=== PATIENT | male | born 1935 | race Caucasian/White ===

== ENCOUNTER 2021-06-21 15:40 | Inpatient (IN) | payer MEDICARE, SELFPAY ==
--- NOTE | ~2021-06-21 | US_ITS ---
EXAMINATION: US VENOUS ULTRASOUND WITH DOPPLER LOWER EXTREMITY, LEFT CLINICAL INFORMATION: Left lower extremity edema. COMPARISON: 06/11/2020 TECHNIQUE: Ultrasound of the deep veins is performed from the hip to the calf with compression sonography and color and pulse Doppler assessment. Spectral analysis with color-flow imaging is performed. FINDINGS: There is normal venous compression and respiratory variation and augmented flow. The visualized common femoral vein, superficial femoral vein, profunda femoral vein, and popliteal vein show no evidence of deep venous thrombosis. The calf veins are not well seen due to the edema. There is no significant popliteal fossa cyst. If the patient's symptoms persist, followup ultrasound in 5 days 7 days might be of value to exclude proximal propagation from a non-visualized calf vein. US/US venous duplex LE IMPRESSION: No DVT demonstrated in the left lower extremity.
--- NOTE | ~2021-06-21 | CT_ITS ---
EXAMINATION: CT CHEST WITHOUT CONTRAST CLINICAL INFORMATION: Shortness of breath, hypoxia COMPARISON: Chest x-ray 05/18/2019 TECHNIQUE: Multidetector volumetric CT imaging of the chest was done. Axial MIP volume rendering provided. Sagittal and coronal reformatted images were obtained. This CT examination was performed using dose optimization techniques as appropriate, variously including the following: *Automated exposure control *Adjustment of mA and/or kV according to patient size (this includes techniques or standardized protocols for targeted exams where dose is matched to indication/reason for exam; i.e. extremities or head) *Use of iterative reconstruction technique DLP: 668 mGy-cm FINDINGS: BLOOD BANK MANAGER: Symmetrically expanded lungs LUNGS: Patchy bilateral airspace opacities are seen. There is bibasilar atelectasis. No dense focal consolidation or mass. MEDIASTINUM: Left lobe of the thyroid is enlarged and extends into the superior mediastinum. There is a 1.8 cm left thyroid calcification. There right thyroid is diminutive or absent. Numerous prominent but not pathologically enlarged mediastinal lymph nodes are present. Ascending thoracic aorta measures 4 cm in diameter. There are pacer wires and coronary artery calcification. There is cardiomegaly. No pericardial effusion. PLEURA: There is no pleural effusion. No pleural mass or thickening. AXILLA: No axillary or internal mammary lymphadenopathy. UPPER ABDOMEN: No adrenal mass. OSSEOUS STRUCTURES: Multilevel degenerative changes of the thoracic spine. Multilevel facet arthropathy. No acute or suspicious osseous abnormality. CT/CT chest wo con IMPRESSION: Patchy areas of bilateral groundglass opacity are present. This is nonspecific. This could represent an infectious or inflammatory process including viral COVID pneumonitis. Alveolar pulmonary edema, pulmonary hemorrhage, or other etiologies could be considered in the appropriate clinical setting. Recommend follow-up after treatment to confirm resolution. There is cardiomegaly. No pleural effusions are present.
[2021-06-21 16:01] VITALS: BP 150/110; PULSE 76; O2SAT 100; O2SAT 99; BMI 38.2
--- NOTE | 2021-06-21 16:04 | ED_ITS ---
HPI - SOB/Dyspnea General Chief Complaint: Dyspnea Stated Complaint: shortness of breath Source: patient and EMS Mode of arrival: EMS Limitations: physical limitation (Legally blind) History of Present Illness HPI Narrative: [age] presents from senior living facility via EMS for hypoxia currently being treated for pneumonia. 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 Patient was found to be hypoxic in the low 80s, required 6 L of O2 nasal cannula to bring his oxygen saturation up to 99%. He does not require O2 at home, states that he is taking azithromycin for pneumonia that was diagnosed approximately week ago. He does state to have a larger left leg with bilateral lower extremity redness and has been treated for lower extremity cellulitis in the past. He does not describe any chest pain or palpitations, fevers, chills, nausea, vomiting, diarrhea, constipation, dysuria, weakness, dizziness, or any other concerning symptoms. MD elicited complaint: shortness of breath and cough Pertinent past history: COPD, congestive heart failure and pneumonia Timing: constant Severity: moderate Exacerbating factors: exertion, movement, coughing and talking Relieving factors: oxygen Known history of: COPD Associated symptoms: fever, cough and wheezing Treatment prior to arrival: oxygen Related Data Home oxygen amount: other Home Medications Medication Instructions Recorded Confirmed allopurinol 300 mg tablet 1 tab PO DAILY 06/21/21 06/21/21 aspirin 81 mg tablet 81 mg PO DAILY 06/21/21 06/21/21 azithromycin 250 mg tablet 1 tab PO DIRECTED 06/21/21 06/21/21 camphor 3.1 %-methyl salicylate 10 1 patch TOPICAL DAILY 06/21/21 06/21/21 %-menthol 6 % topical patch (Salonpas) cholecalciferol (vitamin D3) 50 50 mcg PO DAILY 06/21/21 06/21/21 mcg (2,000 unit) capsule (Vitamin D3) escitalopram oxalate 20 mg tablet 1 tab PO DAILY 06/21/21 06/21/21 fenofibrate 160 mg tablet 1 tab PO DAILY 06/21/21 06/21/21 fluticasone furoate 100 1 puff INHALATION DAILY 06/21/21 06/21/21 mcg-vilanterol 25 mcg/dose inhalation powder (Breo Ellipta) furosemide 20 mg tablet 2 tab PO DAILY 06/21/21 06/21/21 gabapentin 100 mg capsule 1 cap PO TID 06/21/21 06/21/21 gabapentin 300 mg capsule 1 cap PO TID 06/21/21 06/21/21 guaifenesin 600 mg tablet, 600 mg PO BID 06/21/21 06/21/21 extended release 12 hr (Mucinex) omeprazole 40 mg capsule,delayed 1 cap PO BID 06/21/21 06/21/21 release rivaroxaban 20 mg tablet (Xarelto) 1 tab PO DAILY 06/21/21 06/21/21 tamsulosin 0.4 mg capsule 1 cap PO DAILY 06/21/21 06/21/21 trazodone 100 mg tablet 1 tab PO BEDTIME 06/21/21 06/21/21 valsartan 40 mg tablet 1 tab PO DAILY 06/21/21 06/21/21 Allergies Allergy/AdvReac Type Severity Reaction Status Date / Time levofloxacin [LEVOFLOXACIN] Allergy Severe HYPOTENSION Unverified 06/28/20 14:48 Penicillins [PCN] Allergy Severe DIFFICULTY Unverified 06/28/20 14:48 BREATHING,RASH penicillin V Allergy Unknown sob/rash Unverified 02/28/19 00:00 quinine [QUININE] Allergy Unknown UNKNOWN, ? Unverified 06/28/20 14:48 Sulfa (Sulfonamide Allergy Unknown UNSURE Unverified 06/28/20 14:48 Antibiotics) [SULFA(SULFONAMIDE ANTIBIOTICS)] morphine [MORPHINE] AdvReac Intermediate HYPOTENSION Unverified 06/28/20 14:48 MUSCLE RELAXERS Allergy Severe RASH/IMMOBI Uncoded 06/28/20 14:48 LITY Review of Systems Review of Systems: Constitutional: No Fever, No Chills ENT/Mouth: No Ear Pain, No Hoarseness, No sore throat Eyes: No Eye Pain, No Swelling, No Redness, No Foreign Body Cardiovascular: No Chest Pain, positive SOB Respiratory: No Cough, positive Dyspnea Gastrointestinal: No Nausea, No Vomiting, No Diarrhea, No abdominal Pain Genitourinary: No Dysuria, No Hematuria Musculoskeletal: No joint pain, No Myalgias, No Joint Swelling Skin: No Skin lacerations, No rash Neuro: No Weakness, No Numbness, No Paresthesias, No Loss of Consciousness, No Dizziness, No Headache Psych: No Anxiety/Panic, No Depression Heme/Lymph: no easy bruising, no Lymphadenopathy Endocrine: No Polyuria, No Polydipsia Yes all other systems are reviewed and are negative [facility] Past Medical History Attestation statement: The following information was validated with the patient. Source: old records reviewed Social History Social History Alcohol intake: current Alcohol intake frequency: holidays/special occasions only Patient Tobacco Use Status: Former Tobacco user Use of substances other than those prescribed or required for medical reasons: No Advance Directives: No Advance Directives Information Provided: Yes Physical Exam Vital Signs: Vital Signs: Last Vital Signs Temp 98.8 F 06/21/21 22:45 Pulse 70 06/21/21 22:45 Resp 17 06/21/21 22:45 BP 144/82 H 06/21/21 22:51 Pulse Ox 95 06/21/21 22:45 Oxygen Flow Rate 6 06/21/21 16:01 Body Mass Index 38.2 Appearance: Alert. Oriented X3. No acute distress. Eyes: Sclera nonicteric. ENT: Pharynx normal. Moist mucous membranes. Neck: Normal inspection. Neck supple. CVS: Normal heart rate and rhythm. Paced rhythm. Pulses normal and equal to all extremities. Respiratory: Mild respiratory distress. Diminished at the bases, expiratory wheezing noted. Abdomen: Soft and nontender. Obese. Skin: Skin warm and dry. Normal skin turgor. Bilateral lower extremity peripheral vascular disease with hemosiderin discoloration and mild erythema. Extremities: Lower extremity edema noted, left greater than the right. Neuro: No motor deficit. No sensory deficit. Cranial nerves 2-12 intact. Course Course Course Narrative: 86-year-old male presents from residential living facility- assisted living facility for hypoxia. Was treated for pneumonia with azithromycin, noted to be at 80% room air, given 6 L of nasal cannula O2 on transport which brought his O2 sat up to 99%. Will order CT scan of chest, labs, lactic and cultures. 5:[address] scan indicate a bilateral ground-glass opacities consistent with COVID-19. Dexamethasone ordered at this time. Add on lab values for COVID panel. 5:45 p.m. will start cefepime IV antibiotic, while patient does meet sepsis, his CT scan indicates COVID 19 viral pneumonia infection. Was treated with azithromycin, has significant allergies to penicillins, Levaquin, and sulfa antibiotics. This case was discussed in detail with Dr. Lee who agrees with this plan. We will not resuscitate with fluids at this time. Labs are still pending, we will resuscitate as needed pending lab values. 5:49 p.m. lactic acid is 0.9 7:11 p.m. discussion with hospitalist regarding admission. Plan is to admit for pneumonia and hypoxia with respiratory failure Consultations Consultation #1: Rhaul Time: 19:11 MDM - SOB/Dyspnea Differential Diagnosis Differential diagnosis: Likely acute exacerbation of chronic obstructive airways disease, congestive heart failure, pneumonia, pleural effusion and anemia Medical Records Attestation: I reviewed the patient's medical records. Lab Data Attestation: I reviewed the patient's lab results. Result diagrams: 06/21/21 17:13 06/21/21 17:13 Labs: Lab Results 06/21/21 06/21/21 06/21/21 Range/Units 17:13 17:13 17:13 WBC 5.2 (4.8-10.8) X10*3/uL RBC 3.86 L (4.60-5.80) X10*6/uL Hgb 11.1 L (14.0-18.0) g/dl Hct 34.9 L (42-52) % MCV 90.4 (80-98) fL MCH 28.8 (27.0-33.0) pg MCHC 31.8 (31.0-36.0) g/dl RDW 15.5 (11.0-16.0) % Plt Count 206 (160-400) X10*3/uL MPV 9.3 L (9.4-12.4) fL Immature Gran % (Auto) 0.8 H (0.0-0.4) % Neut % (Auto) 65.8 (45-73) % Lymph % (Auto) 17.1 L (20-40) % [place] % (Auto) 12.1 H (2-11) % Eos % (Auto) 3.8 (0-4) % Baso % (Auto) 0.4 (0-2) % Lymph # (Auto) 0.9 L (1.2-4.9) X10*3/uL [place] # (Auto) 0.6 (0.1-1.2) X10*3/uL Eos # (Auto) 0.2 (0.0-0.4) X10*3/uL Baso # (Auto) 0.0 (0.0-0.2) X10*3/uL Abs Immat Gran (auto) 0.04 H (0.00-0.03) X10*3/uL Absolute Neuts (auto) 3.4 (2.0-8.3) X10*3/uL Absolute Nucleated RBC 0.000 (0.0-0.012) X10*3/uL Nucleated RBC % (auto) 0.0 (0.0-0.2) /100WBC ESR (0-15) MM/HR APTT 48.8 H (24.1-38.0) SEC Sodium 140 (135-145) mmol/L Potassium 4.2 (3.3-5.1) mmol/L Chloride 102 (96-108) mmol/L Carbon Dioxide 30 H (22-29) mmol/L Anion Gap 12 (12-20) BUN 26 H (9-16) mg/dL Creatinine 1.28 (0.5-1.4) mg/dL Estim Creat Clear Calc 52.6 Estimated GFR 54 Random Glucose 105 (60-115) mg/dL Lactic Acid (0.5-2.0) mmol/L Calcium 9.7 (8.4-10.2) mg/dL Magnesium (1.6-2.6) mg/dL Ferritin 83 (20-250) ng/mL Lactate Dehydrogenase 165 (118-273) U/L Troponin I High Sens (<3.5-35.0) ng/L C-Reactive Protein 7.43 H (< or = 0.50) mg/dL B-Natriuretic Peptide (<100) pg/mL Procalcitonin ng/mL Coronavirus (PCR) (Negative) Influenza Type A (PCR) (Negative) Influenza Type B (PCR) (Negative) RSV RNA Qual (PCR) (Negative) 06/21/21 06/21/21 06/21/21 Range/Units 17:13 17:13 17:13 WBC (4.8-10.8) X10*3/uL RBC (4.60-5.80) X10*6/uL Hgb (14.0-18.0) g/dl Hct (42-52) % MCV (80-98) fL MCH (27.0-33.0) pg MCHC (31.0-36.0) g/dl RDW (11.0-16.0) % Plt Count (160-400) X10*3/uL MPV (9.4-12.4) fL Immature Gran % (Auto) (0.0-0.4) % Neut % (Auto) (45-73) % Lymph % (Auto) (20-40) % [place] % (Auto) (2-11) % Eos % (Auto) (0-4) % Baso % (Auto) (0-2) % Lymph # (Auto) (1.2-4.9) X10*3/uL [place] # (Auto) (0.1-1.2) X10*3/uL Eos # (Auto) (0.0-0.4) X10*3/uL Baso # (Auto) (0.0-0.2) X10*3/uL Abs Immat Gran (auto) (0.00-0.03) X10*3/uL Absolute Neuts (auto) (2.0-8.3) X10*3/uL Absolute Nucleated RBC (0.0-0.012) X10*3/uL Nucleated RBC % (auto) (0.0-0.2) /100WBC ESR (0-15) MM/HR APTT (24.1-38.0) SEC Sodium (135-145) mmol/L Potassium (3.3-5.1) mmol/L Chloride (96-108) mmol/L Carbon Dioxide (22-29) mmol/L Anion Gap (12-20) BUN (9-16) mg/dL Creatinine (0.5-1.4) mg/dL Estim Creat Clear Calc Estimated GFR Random Glucose (60-115) mg/dL Lactic Acid 0.9 (0.5-2.0) mmol/L Calcium (8.4-10.2) mg/dL Magnesium 1.8 (1.6-2.6) mg/dL Ferritin (20-250) ng/mL Lactate Dehydrogenase (118-273) U/L Troponin I High Sens 9.8 (<3.5-35.0) ng/L C-Reactive Protein (< or = 0.50) mg/dL B-Natriuretic Peptide (<100) pg/mL Procalcitonin ng/mL Coronavirus (PCR) (Negative) Influenza Type A (PCR) (Negative) Influenza Type B (PCR) (Negative) RSV RNA Qual (PCR) (Negative) 06/21/21 06/21/21 06/21/21 Range/Units 17:13 17:13 17:13 WBC (4.8-10.8) X10*3/uL RBC (4.60-5.80) X10*6/uL Hgb (14.0-18.0) g/dl Hct (42-52) % MCV (80-98) fL MCH (27.0-33.0) pg MCHC (31.0-36.0) g/dl RDW (11.0-16.0) % Plt Count (160-400) X10*3/uL MPV (9.4-12.4) fL Immature Gran % (Auto) (0.0-0.4) % Neut % (Auto) (45-73) % Lymph % (Auto) (20-40) % [place] % (Auto) (2-11) % Eos % (Auto) (0-4) % Baso % (Auto) (0-2) % Lymph # (Auto) (1.2-4.9) X10*3/uL [place] # (Auto) (0.1-1.2) X10*3/uL Eos # (Auto) (0.0-0.4) X10*3/uL Baso # (Auto) (0.0-0.2) X10*3/uL Abs Immat Gran (auto) (0.00-0.03) X10*3/uL Absolute Neuts (auto) (2.0-8.3) X10*3/uL Absolute Nucleated RBC (0.0-0.012) X10*3/uL Nucleated RBC % (auto) (0.0-0.2) /100WBC ESR 49 H (0-15) MM/HR APTT (24.1-38.0) SEC Sodium (135-145) mmol/L Potassium (3.3-5.1) mmol/L Chloride (96-108) mmol/L Carbon Dioxide (22-29) mmol/L Anion Gap (12-20) BUN (9-16) mg/dL Creatinine (0.5-1.4) mg/dL Estim Creat Clear Calc Estimated GFR Random Glucose (60-115) mg/dL Lactic Acid (0.5-2.0) mmol/L Calcium (8.4-10.2) mg/dL Magnesium (1.6-2.6) mg/dL Ferritin (20-250) ng/mL Lactate Dehydrogenase (118-273) U/L Troponin I High Sens (<3.5-35.0) ng/L C-Reactive Protein (< or = 0.50) mg/dL B-Natriuretic Peptide 276 H (<100) pg/mL Procalcitonin ng/mL Coronavirus (PCR) NEGATIVE (Negative) Influenza Type A (PCR) NEGATIVE (Negative) Influenza Type B (PCR) NEGATIVE (Negative) RSV RNA Qual (PCR) NEGATIVE (Negative) 06/21/21 Range/Units 17:13 WBC (4.8-10.8) X10*3/uL RBC (4.60-5.80) X10*6/uL Hgb (14.0-18.0) g/dl Hct (42-52) % MCV (80-98) fL MCH (27.0-33.0) pg MCHC (31.0-36.0) g/dl RDW (11.0-16.0) % Plt Count (160-400) X10*3/uL MPV (9.4-12.4) fL Immature Gran % (Auto) (0.0-0.4) % Neut % (Auto) (45-73) % Lymph % (Auto) (20-40) % [place] % (Auto) (2-11) % Eos % (Auto) (0-4) % Baso % (Auto) (0-2) % Lymph # (Auto) (1.2-4.9) X10*3/uL [place] # (Auto) (0.1-1.2) X10*3/uL Eos # (Auto) (0.0-0.4) X10*3/uL Baso # (Auto) (0.0-0.2) X10*3/uL Abs Immat Gran (auto) (0.00-0.03) X10*3/uL Absolute Neuts (auto) (2.0-8.3) X10*3/uL Absolute Nucleated RBC (0.0-0.012) X10*3/uL Nucleated RBC % (auto) (0.0-0.2) /100WBC ESR (0-15) MM/HR APTT (24.1-38.0) SEC Sodium (135-145) mmol/L Potassium (3.3-5.1) mmol/L Chloride (96-108) mmol/L Carbon Dioxide (22-29) mmol/L Anion Gap (12-20) BUN (9-16) mg/dL Creatinine (0.5-1.4) mg/dL Estim Creat Clear Calc Estimated GFR Random Glucose (60-115) mg/dL Lactic Acid (0.5-2.0) mmol/L Calcium (8.4-10.2) mg/dL Magnesium (1.6-2.6) mg/dL Ferritin (20-250) ng/mL Lactate Dehydrogenase (118-273) U/L Troponin I High Sens (<3.5-35.0) ng/L C-Reactive Protein (< or = 0.50) mg/dL B-Natriuretic Peptide (<100) pg/mL Procalcitonin 0.07 ng/mL Coronavirus (PCR) (Negative) Influenza Type A (PCR) (Negative) Influenza Type B (PCR) (Negative) RSV RNA Qual (PCR) (Negative) Imaging Data CT scan - chest: Attestation: I personally reviewed and interpreted this imaging study as follows: Radiologist's impression: EXAMINATION: CT CHEST WITHOUT CONTRAST CLINICAL INFORMATION: Shortness of breath, hypoxia? COMPARISON: Chest x-ray 05/18/2019? TECHNIQUE: Multidetector volumetric CT imaging of the chest was done. Axial MIP volume rendering provided. Sagittal and coronal reformatted images were obtained.? This CT examination was performed using dose optimization techniques as appropriate, variously including the following: *Automated exposure control *Adjustment of mA and/or kV according to patient size (this includes techniques or standardized protocols for targeted exams where dose is matched to indication/reason for exam; i.e. extremities or head) *Use of iterative reconstruction technique DLP: 668 mGy-cm FINDINGS: TOBAC[employer]EV[employer] OPERATOR: Symmetrically expanded lungs LUNGS: Patchy bilateral airspace opacities are seen. There is bibasilar atelectasis. No dense focal consolidation or mass.? MEDIASTINUM: Left lobe of the thyroid is enlarged and extends into the superior mediastinum. There is a 1.8 cm left thyroid calcification. There right thyroid is diminutive or absent. Numerous prominent but not pathologically enlarged mediastinal lymph nodes are present. Ascending thoracic aorta measures 4 cm in diameter. There are pacer wires and coronary artery calcification. There is cardiomegaly. No pericardial effusion.? PLEURA: There is no pleural effusion. No pleural mass or thickening.? AXILLA: No axillary or internal mammary lymphadenopathy.? UPPER ABDOMEN: No adrenal mass.? OSSEOUS STRUCTURES: Multilevel degenerative changes of the thoracic spine. Multilevel facet arthropathy. No acute or suspicious osseous abnormality.? CT/CT chest wo con IMPRESSION: Patchy areas of bilateral groundglass opacity are present. This is nonspecific. This could represent an infectious or inflammatory process including viral COVID pneumonitis. Alveolar pulmonary edema, pulmonary hemorrhage, or other etiologies could be considered in the appropriate clinical setting. Recommend follow-up after treatment to confirm resolution. ? There is cardiomegaly. No pleural effusions are present.? Venous duplex: Attestation: I personally reviewed and interpreted this imaging study as follows: Radiologist's impression: EXAMINATION:? US VENOUS ULTRASOUND WITH DOPPLER LOWER EXTREMITY, LEFT CLINICAL INFORMATION:? Left lower extremity edema. COMPARISON:? 06/11/2020 TECHNIQUE: Ultrasound of the deep veins is performed from the hip to the calf with compression sonography and color and pulse Doppler assessment. Spectral analysis with color-flow imaging is performed. FINDINGS: There is normal venous compression and respiratory variation and augmented flow. The visualized common femoral vein, superficial femoral vein, profunda femoral vein, and popliteal vein show no evidence of deep venous thrombosis. The calf veins are not well seen due to the edema.? There is no significant popliteal fossa cyst. If the patient's symptoms persist, followup ultrasound in 5 days 7 days might be of value to exclude proximal propagation from a non-visualized calf vein. US/US venous duplex LE LT IMPRESSION: No DVT demonstrated in the left lower extremity. ECG Data Attestation: I personally reviewed and interpreted this ECG as follows: ECG interpretation date: 06/21/21 ECG interpretation time: 16:14 Interpretation: Vent. Rate : 068 BPM ? ? Atrial Rate : 277 BPM ?? P-R Int : 000 ms? QRS Dur : 162 ms ? ? QT Int : 470 ms ? ? ? P-R-T Axes : 000 -69 106 degrees ?? QTc Int : 499 ms ? Wide QRS rhythm Left axis deviation Non-specific intra-ventricular conduction block Lateral infarct , age undetermined Inferior infarct , age undetermined Abnormal ECG When compared with ECG of 18-MAY-2019 12:51, Wide QRS rhythm has replaced Electronic ventricular pacemaker Critical Care Time Critical Care Time Critical Care Time: Yes Total Critical Care Time: 45 Attestation: I have personally provided critical care time exclusive of time spent on separately billable procedures. Time includes review of laboratory data, radiology results, discussion with consultants, and monitoring for potential decompensation. Interventions were performed as documented. Discharge Plan Discharge Clinical Impression: Hypoxia Pneumonia Qualifiers: Pneumonia type: due to unspecified organism Laterality: bilateral Lung location: unspecified part of lung Qualified Code(s): J18.9 - Pneumonia, unspecified organism Patient Disposition: Admitted As Inpatient
--- NOTE | 2021-06-21 16:14 | ECG_ITS ---
Test Reason : SOB Blood Pressure : / mmHG Vent. Rate : 068 BPM Atrial Rate : 277 BPM P-R Int : 000 ms QRS Dur : 162 ms QT Int : 470 ms P-R-T Axes : 000 -69 106 degrees QTc Int : 499 ms Ventricular-paced rhythm Abnormal ECG When compared with ECG of 18-MAY-2019 12:51, Ventricular-paced rhythm has replaced AV dual-paced rhythm Referred By: Catalina Miranda Electronically Signed By:ALY GARCIA
[2021-06-21 16:59] VITALS: PULSE 69; RESP 20; TEMP 36.3; O2SAT 99
[2021-06-21 17:19] LABS: MANUAL DIFF FLAG NO
[2021-06-21 17:20] LABS: Basophils Percent Auto 0.4 % (0-2); Eosinophils Absolute Auto 0.2 X10*3/uL (0.0-0.4); Eosinophils Percent Auto 3.8 % (0-4); Hematocrit 34.9 % (42-52); Hemoglobin 11.1 g/dl (14.0-18.0); Imm Gran Abs Auto 0.04 X10*3/uL (0.00-0.03); Imm Gran Pct Auto 0.8 % (0.0-0.4); Lymphocytes Absolute Auto 0.9 X10*3/uL (1.2-4.9); Lymphocytes Percent Auto 17.1 % (20-40); Mean Corpuscular HGB Conc 31.8 g/dl (31.0-36.0); Mean Corpuscular Hemoglobin 28.8 pg (27.0-33.0); Mean Corpuscular Volume 90.4 fL (80-98); Mean Platelet Volume 9.3 fL (9.4-12.4); Monocytes Absolute Auto 0.6 X10*3/uL (0.1-1.2); Monocytes Percent Auto 12.1 % (2-11); Neutrophils Absolute Auto 3.4 X10*3/uL (2.0-8.3); Neutrophils Percent Auto 65.8 % (45-73); Platelet Count 206 X10*3/uL (160-400); Red Blood Count 3.86 X10*6/uL (4.60-5.80); Red Cell Distribution Width 15.5 % (11.0-16.0); White Blood Count 5.2 X10*3/uL (4.8-10.8)
[2021-06-21 17:30] LABS: Partial Thromboplastin Time 48.8 SEC (24.1-38.0)
[2021-06-21 17:39] LABS: Lactic Acid 0.9 mmol/L (0.5-2.0)
[2021-06-21 17:43] LABS: Anion Gap 12 (12-20); Blood Urea Nitrogen 26 mg/dL (9-16); Calcium 9.7 mg/dL (8.4-10.2); Carbon Dioxide 30 mmol/L (22-29); Chloride 102 mmol/L (96-108); Creatinine Clr Calc Pharmacy 52.6; Estimated Glomerular Filt Rate 54; Glucose Random 105 mg/dL (60-115); Potassium 4.2 mmol/L (3.3-5.1); Sodium 140 mmol/L (135-145)
[2021-06-21 17:44] LABS: Magnesium 1.8 mg/dL (1.6-2.6)
[2021-06-21 17:49] LABS: Troponin-I High Sensitivity 9.8 ng/L (<3.5-35.0)
[2021-06-21 17:50] LABS: B Type Natriuretic Peptide 276 pg/mL (<100)
[2021-06-21 17:55] VITALS: BP 143/52; PULSE 68; RESP 14; TEMP 37.3; O2SAT 99
[2021-06-21] MEDS: dexAMETHasone sod phosphate 4 MG/ML VIAL 6 MG IVPUSH (18:30)
[2021-06-21] MEDS: cefEPime HCl 2 GM in 0.9 % Sodium Chloride 50 ML IV (18:35)
[2021-06-21 18:37] LABS: Influenza A PCR NEGATIVE (Negative); Influenza B PCR NEGATIVE (Negative); Resp Syncy Virus RNA Qual PCR NEGATIVE (Negative); SARS COV2 PCR INHOUSE NEGATIVE (Negative)
[2021-06-21 18:39] LABS: C Reactive Protein 7.43 mg/dL (< or = 0.50); Lactate Dehydrogenase 165 U/L (118-273)
[2021-06-21 18:50] LABS: Procalcitonin 0.07 ng/mL
[2021-06-21 19:01] LABS: Ferritin 83 ng/mL (20-250)
[2021-06-21 19:09] LABS: Erythrocyte Sedimentation Rate 49 MM/HR (0-15)
--- NOTE | 2021-06-21 19:18 | PC.NURSE ---
o2 STOPPED TO REVIEW PT BASELINE, PT DROPPED TO 71% BEFORE COMING BACK UP TO 100% ON 6L NC
--- NOTE | 2021-06-21 22:02 | P.HPHOSP_ITS ---
History of Present Illness Date of Service: 06/21/21 Chief Complaint: hypoxia This is an 86-year-old male who comes in from assisted living with complaints of hypoxia. Patient has a past medical history of COPD, CHF, HTN, history of DVT/PE? on Xarelto, who presents to the hospital after being found hypoxic at [facility]. Patient reports that he is being treated for pneumonia for the past 2 days due to his coughing, shortness of breath but developed hypoxia and therefore sent to the hospital. Patient denies any chest pain, reports lower extremity edema worse on the right leg but that is chronic. Patient reports that he sleeps in and recliner and therefore unable to tell me if he has any orthopnea or PND. Denies any abdominal pain nausea or vomiting, no diarrhea constipation, no urinary symptoms. All other review of system negativ. On arrival to the ED patient found to have hypoxia with an O2 level in the mid to high 80s although not documented Labs on arrival significant for WBC count of 5.2, hemoglobin of 11.1, PT of 48.8, creatinine of 1.28 which is his baseline, CRP of 7.4 and BNP of 276. Chest CT shows patchy area bilateral ground-glass opacity. This is nonspecific. Could represent infectious or inflammatory process including viral COVID pneumonia. Alveolar pulmonary edema and pulmonary hemorrhage could also be a possibility Review of Systems Review of Systems: Yes all other systems are reviewed and are negative [facility] Medical History (Updated 06/22/21 @ 07:15 by Sly Guerrero MD) BPH (benign prostatic hyperplasia) CHF (congestive heart failure) COPD (chronic obstructive pulmonary disease) DVT (deep venous thrombosis) Gout History of pulmonary embolism Pertinent family history: Family history is negative for any CHF for COPD Social History Alcohol intake: current Alcohol intake frequency: holidays/special occasions only Patient Tobacco Use Status: Former Tobacco user Use of substances other than those prescribed or required for medical reasons: No Advance Directives: No Advance Directives Information Provided: Yes Meds Allergies Allergy/AdvReac Type Severity Reaction Status Date / Time levofloxacin [LEVOFLOXACIN] Allergy Severe HYPOTENSION Unverified 06/28/20 14:48 Penicillins [PCN] Allergy Severe DIFFICULTY Unverified 06/28/20 14:48 BREATHING,RASH penicillin V Allergy Unknown sob/rash Unverified 02/28/19 00:00 quinine [QUININE] Allergy Unknown UNKNOWN, ? Unverified 06/28/20 14:48 Sulfa (Sulfonamide Allergy Unknown UNSURE Unverified 06/28/20 14:48 Antibiotics) [SULFA(SULFONAMIDE ANTIBIOTICS)] morphine [MORPHINE] AdvReac Intermediate HYPOTENSION Unverified 06/28/20 14:48 MUSCLE RELAXERS Allergy Severe RASH/IMMOBI Uncoded 06/28/20 14:48 LITY Home Medications Medication Instructions Recorded Confirmed Last Taken Type allopurinol 300 mg tablet 1 tab PO DAILY 06/21/21 06/21/21 06/21/21 History aspirin 81 mg tablet 81 mg PO DAILY 06/21/21 06/21/21 06/21/21 History azithromycin 250 mg tablet 1 tab PO DIRECTED 06/21/21 06/21/21 06/21/21 History camphor 3.1 %-methyl salicylate 10 1 patch TOPICAL DAILY 06/21/21 06/21/21 06/21/21 History %-menthol 6 % topical patch (Salonpas) cholecalciferol (vitamin D3) 50 50 mcg PO DAILY 06/21/21 06/21/21 06/21/21 History mcg (2,000 unit) capsule (Vitamin D3) escitalopram oxalate 20 mg tablet 1 tab PO DAILY 06/21/21 06/21/21 06/21/21 History fenofibrate 160 mg tablet 1 tab PO DAILY 06/21/21 06/21/21 06/21/21 History fluticasone furoate 100 1 puff INHALATION DAILY 06/21/21 06/21/21 06/21/21 History mcg-vilanterol 25 mcg/dose inhalation powder (Breo Ellipta) furosemide 20 mg tablet 2 tab PO DAILY 06/21/21 06/21/21 06/21/21 History gabapentin 100 mg capsule 1 cap PO TID 06/21/21 06/21/21 06/21/21 History gabapentin 300 mg capsule 1 cap PO TID 06/21/21 06/21/21 06/21/21 History guaifenesin 600 mg tablet, 600 mg PO BID 06/21/21 06/21/21 06/21/21 History extended release 12 hr (Mucinex) omeprazole 40 mg capsule,delayed 1 cap PO BID 06/21/21 06/21/21 06/21/21 History release rivaroxaban 20 mg tablet (Xarelto) 1 tab PO DAILY 06/21/21 06/21/21 06/21/21 History tamsulosin 0.4 mg capsule 1 cap PO DAILY 06/21/21 06/21/21 06/21/21 History trazodone 100 mg tablet 1 tab PO BEDTIME 06/21/21 06/21/21 06/20/21 History valsartan 40 mg tablet 1 tab PO DAILY 06/21/21 06/21/21 06/21/21 History Physical Exam Vital Signs and Narrative: Vital Signs: Last Vital Signs Temp 99.1 F 06/21/21 17:55 Pulse 68 06/21/21 17:55 Resp 14 06/21/21 17:55 BP 143/52 H 06/21/21 17:55 Pulse Ox 99 06/21/21 17:55 Oxygen Flow Rate 6 06/21/21 16:01 Body Mass Index 38.2 Const: General: cooperative and no acute distress Orientation/consciousness: patient oriented x3 Eyes: General: appearance normal, both eyes and all related structures Pupils: Equal, round and reactive pupils present Resp: Effort & Inspection: normal respiratory effort Cardio: Rate: regular rate Rhythm: regular rhythm GI: Palpation (GI): Soft to palpation Auscultation: normal bowel sounds Skin: Other: has erythema, warmth of both legs, skin changes of chronic edema General skin exam: no rashes or lesions noted Neuro: General: patient oriented x3 Cranial nerves: Yes Equal, round and reactive pupils present Cognition (Neuro): normal cognition Extrem: Other: Bilateral lower extremity edema, See skin exam above General: Yes normal to inspection Results Labs CBC and Chem 7: 06/22/21 06:10 06/22/21 06:10 Labs: Laboratory Results - last 24 hr 06/21/21 06/21/21 06/21/21 17:13 17:13 17:13 MCV 90.4 MCH 28.8 MCHC 31.8 RDW 15.5 Plt Count 206 MPV 9.3 L Immature Gran % (Auto) 0.8 H Neut % (Auto) 65.8 Lymph % (Auto) 17.1 L [place] % (Auto) 12.1 H Eos % (Auto) 3.8 Baso % (Auto) 0.4 Lymph # (Auto) 0.9 L [place] # (Auto) 0.6 Eos # (Auto) 0.2 Baso # (Auto) 0.0 Abs Immat Gran (auto) 0.04 H Absolute Neuts (auto) 3.4 Absolute Nucleated RBC 0.000 Nucleated RBC % (auto) 0.0 ESR APTT 48.8 H Anion Gap 12 Estim Creat Clear Calc 52.6 Estimated GFR 54 Random Glucose 105 Lactic Acid Calcium 9.7 Magnesium Ferritin 83 Lactate Dehydrogenase 165 Troponin I High Sens C-Reactive Protein 7.43 H B-Natriuretic Peptide Procalcitonin Coronavirus (PCR) Influenza Type A (PCR) Influenza Type B (PCR) RSV RNA Qual (PCR) 06/21/21 06/21/21 06/21/21 17:13 17:13 17:13 MCV MCH MCHC RDW Plt Count MPV Immature Gran % (Auto) Neut % (Auto) Lymph % (Auto) [place] % (Auto) Eos % (Auto) Baso % (Auto) Lymph # (Auto) [place] # (Auto) Eos # (Auto) Baso # (Auto) Abs Immat Gran (auto) Absolute Neuts (auto) Absolute Nucleated RBC Nucleated RBC % (auto) ESR APTT Anion Gap Estim Creat Clear Calc Estimated GFR Random Glucose Lactic Acid 0.9 Calcium Magnesium 1.8 Ferritin Lactate Dehydrogenase Troponin I High Sens 9.8 C-Reactive Protein B-Natriuretic Peptide Procalcitonin Coronavirus (PCR) Influenza Type A (PCR) Influenza Type B (PCR) RSV RNA Qual (PCR) 06/21/21 06/21/21 06/21/21 17:13 17:13 17:13 MCV MCH MCHC RDW Plt Count MPV Immature Gran % (Auto) Neut % (Auto) Lymph % (Auto) [place] % (Auto) Eos % (Auto) Baso % (Auto) Lymph # (Auto) [place] # (Auto) Eos # (Auto) Baso # (Auto) Abs Immat Gran (auto) Absolute Neuts (auto) Absolute Nucleated RBC Nucleated RBC % (auto) ESR 49 H APTT Anion Gap Estim Creat Clear Calc Estimated GFR Random Glucose Lactic Acid Calcium Magnesium Ferritin Lactate Dehydrogenase Troponin I High Sens C-Reactive Protein B-Natriuretic Peptide 276 H Procalcitonin Coronavirus (PCR) NEGATIVE Influenza Type A (PCR) NEGATIVE Influenza Type B (PCR) NEGATIVE RSV RNA Qual (PCR) NEGATIVE 06/21/21 17:13 MCV MCH MCHC RDW Plt Count MPV Immature Gran % (Auto) Neut % (Auto) Lymph % (Auto) [place] % (Auto) Eos % (Auto) Baso % (Auto) Lymph # (Auto) [place] # (Auto) Eos # (Auto) Baso # (Auto) Abs Immat Gran (auto) Absolute Neuts (auto) Absolute Nucleated RBC Nucleated RBC % (auto) ESR APTT Anion Gap Estim Creat Clear Calc Estimated GFR Random Glucose Lactic Acid Calcium Magnesium Ferritin Lactate Dehydrogenase Troponin I High Sens C-Reactive Protein B-Natriuretic Peptide Procalcitonin 0.07 Coronavirus (PCR) Influenza Type A (PCR) Influenza Type B (PCR) RSV RNA Qual (PCR) Imaging Radiologist's Impressions: Impressions Chest CT 06/21/21 16:19 IMPRESSION: Patchy areas of bilateral groundglass opacity are present. This is nonspecific. This could represent an infectious or inflammatory process including viral COVID pneumonitis. Alveolar pulmonary edema, pulmonary hemorrhage, or other etiologies could be considered in the appropriate clinical setting. Recommend follow-up after treatment to confirm resolution. There is cardiomegaly. No pleural effusions are present. Venous Duplex 06/21/21 18:01 IMPRESSION: No DVT demonstrated in the left lower extremity. Assessment and Plan (1) CHF exacerbation: Status: Acute (2) Acute respiratory failure with hypoxia: Status: Acute This is an 86-year-old male with past medical history of CHF and COPD presents the hospital with hypoxia # acute hypoxic respiratory failure - most likely multifactorial in the setting of CHF exacerbation as well as possible viral pneumonia although COVID PCR negative - CT showing bilateral multifocal infiltrates concerning for viral pneumonia versus edema - patient has lower extremity edema as well as elevated BNP - will treat him for CHF exacerbation has below, as well as for COVID-19 pneumonia with dexamethasone as he does have hypoxia - DuoNeb p.r.n. as well scheduled given his history of COPD - monitor respiratory status # CHF exacerbation - has elevated BNP, lower extremity edema, as well hypoxia and CT evidence showing pulmonary infiltrates concerning for alveolar edema - patient on Lasix p.o. - will start him on IV Lasix - strict I&O, daily weight, low-sodium diet - echocardiogram - cardiology consult # COPD - does not appear to have any exacerbation, has no increased cough, minimal sputum production - will add DuoNeb - patient will be on dexamethasone for COVID-19 # history of DVT - venous duplex of right lower extremity that has increased swelling is negative for any acute DVT - continue Xarelto # BPH - continues tamsulosin # HTN - continue valsartan DVT prophylaxis: Xarelto Quality Stroke Does the patient have a stroke diagnosis?: No VTE Prior VTE?: Yes VTE Risk Level:: Medical - moderate - high VTE Device Contraindication: Treatment Not Indicated VTE Drug Contraindication: N/A - Med Ordered
[2021-06-21 22:07] VITALS: PULSE 79; RESP 12; O2SAT 97
[2021-06-21 22:45] VITALS: PULSE 70; RESP 17; TEMP 37.1; O2SAT 95
[2021-06-21] MEDS: Furosemide 40 MG/4 ML VIAL IVPUSH (22:46)
[2021-06-21 22:51] VITALS: BP 144/82
[2021-06-22] VITALS (9 sets, daily range): BP systolic 106–126; BP diastolic 44–67; PULSE 59–84; RESP 14–20; TEMP 36.4–37.1; O2SAT 94–98; BMI 35.4; BMI 34.7
[2021-06-22] MEDS: cefTRIAXone sodium 1 GM in 0.9 % Sodium Chloride 50 ML IV (05:04)
[2021-06-22] MEDS: Azithromycin 500 MG in 0.9 % Sodium Chloride 250 ML 125 MG IV (05:44)
[2021-06-22] MEDS: Omeprazole 40 MG CAPSULE.DR PO ×2 (05:46→17:36)
[2021-06-22 06:34] LABS: MANUAL DIFF FLAG NO
[2021-06-22 06:41] LABS: Basophils Percent Auto 0.2 % (0-2); Eosinophils Percent Auto 0.2 % (0-4); Hematocrit 35.9 % (42-52); Hemoglobin 11.5 g/dl (14.0-18.0); Imm Gran Abs Auto 0.05 X10*3/uL (0.00-0.03); Imm Gran Pct Auto 0.9 % (0.0-0.4); Lymphocytes Absolute Auto 0.5 X10*3/uL (1.2-4.9); Lymphocytes Percent Auto 9.7 % (20-40); Mean Corpuscular Hemoglobin 28.3 pg (27.0-33.0); Mean Corpuscular Volume 88.2 fL (80-98); Mean Platelet Volume 9.7 fL (9.4-12.4); Monocytes Absolute Auto 0.5 X10*3/uL (0.1-1.2); Monocytes Percent Auto 9.4 % (2-11); Neutrophils Absolute Auto 4.3 X10*3/uL (2.0-8.3); Neutrophils Percent Auto 79.6 % (45-73); Platelet Count 230 X10*3/uL (160-400); Red Blood Count 4.07 X10*6/uL (4.60-5.80); Red Cell Distribution Width 15.1 % (11.0-16.0); White Blood Count 5.3 X10*3/uL (4.8-10.8)
[2021-06-22 06:53] LABS: Anion Gap 15 (12-20); Blood Urea Nitrogen 25 mg/dL (9-16); Calcium 9.9 mg/dL (8.4-10.2); Carbon Dioxide 28 mmol/L (22-29); Chloride 100 mmol/L (96-108); Creatinine Clr Calc Pharmacy 51.8; Estimated Glomerular Filt Rate 53; Glucose Random 124 mg/dL (60-115); Potassium 4.2 mmol/L (3.3-5.1); Sodium 139 mmol/L (135-145)
[2021-06-22 07:33] LABS: Appearance Urine CLEAR; Color Urine YELLOW; Glucose Urine UA NEG (NEG); Leukocyte Esterase Urine NEG (NEG); Nitrite Urine NEG (NEG); Specific Gravity - Urine <= 1.005 (1.005-1.025); UACC Culture Trigger NO; Urine Blood TRACE (NEG); Urine Ketones NEG (NEG); Urine Protein NEG (NEG-TRACE)
[2021-06-22 08:08] LABS: WBC Urine 0 /HPF (0-4)
[2021-06-22] MEDS: Furosemide 40 MG/4 ML VIAL IVPUSH ×2 (08:46→21:06)
[2021-06-22] MEDS: Aspirin 81 MG TAB.CHEW PO (08:47)
[2021-06-22] MEDS: Cholecalciferol (Vitamin D3) 25 MCG TABLET 50 MCG PO (08:47)
[2021-06-22] MEDS: dexAMETHasone sod phosphate 4 MG/ML VIAL 6 MG IVPUSH (08:47)
[2021-06-22] MEDS: guaiFENesin LA 600 MG TAB.ER.12H PO ×2 (08:47→21:06)
[2021-06-22] MEDS: Gabapentin 400 MG CAPSULE PO ×3 (08:47→21:06)
[2021-06-22] MEDS: Escitalopram Oxalate 20 MG TABLET PO (08:47)
[2021-06-22] MEDS: Tamsulosin HCL 0.4 MG CAPSULE PO (08:47)
[2021-06-22] MEDS: Valsartan 40 MG TABLET PO (08:47)
[2021-06-22] MEDS: 0.9 % Sodium Chloride Flush 3 ML SYRINGE IVFLUSH ×3 (08:49→21:06)
[2021-06-22] MEDS: allopurinoL 300 MG TABLET PO (09:41)
[2021-06-22] MEDS: Fenofibrate 160 MG TABLET PO (09:41)
[2021-06-22] MEDS: Albuterol/Iprat 2.5/0.5MG 3 ML AMPUL.NEB INHALE ×3 (11:35→19:35)
--- NOTE | 2021-06-22 12:23 | PM.CNCAR ---
History of Present Illness History of Present Illness Date of Service: 06/22/21 Chief complaint: CHF exacerbation, PNA Narrative: This is a cardiology consultation regarding possible congestive heart failure. Patient states that he has had a remote stent several years ago but not able to offer any further information. 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 He states that he used to go to [facility] but has not seen anybody in quite some time. Otherwise listed to have various diagnosis including COPD, congestive heart failure, DVT/PE in his past history. Current admission is for hypoxia the [facility] facility. Patient had apparently been receiving treatment for pneumonia for coughing, shortness of breath but he also developed hypoxia leading to the hospitalization. He does have some chronic lower extremity swelling. Otherwise no clear anginal-type symptoms. We have been also system from Cardiac for any ongoing heart failure as well. Review of Systems Review of Systems: Yes all other systems are reviewed and are negative Cardiovascular: Cardiovascular: Reports as per HPI, Reports no additional cardiovascular complaints, Denies acrocyanosis, Denies cool extremities, Denies painful fingertips, Denies chest pain, Denies chest pain at rest, Denies diaphoresis, Denies syncope, Denies irregular heart rhythm, Denies claudication, Denies leg edema, Denies lightheadedness, Denies palpitations and Reports dyspnea Respiratory: Respiratory: Reports cough and Reports dyspnea Neurologic: Denies syncope Endocrine: Endocrine: Denies palpitations [facility] Past Medical History Medical History (Updated 06/22/21 @ 12:29 by Demetrio Becker MD) BPH (benign prostatic hyperplasia) CHF (congestive heart failure) COPD (chronic obstructive pulmonary disease) DVT (deep venous thrombosis) Gout History of pulmonary embolism Family History Pertinent family history: No significant family history per patient. Social History Social History Alcohol intake: current Alcohol intake frequency: holidays/special occasions only Patient Tobacco Use Status: Former Tobacco user Use of substances other than those prescribed or required for medical reasons: No Advance Directives: No Advance Directives Information Provided: Yes Meds Allergies Allergy/AdvReac Type Severity Reaction Status Date / Time levofloxacin [LEVOFLOXACIN] Allergy Severe HYPOTENSION Unverified 06/28/20 14:48 Penicillins [PCN] Allergy Severe DIFFICULTY Unverified 06/28/20 14:48 BREATHING,RASH penicillin V Allergy Unknown sob/rash Unverified 02/28/19 00:00 quinine [QUININE] Allergy Unknown UNKNOWN, ? Unverified 06/28/20 14:48 Sulfa (Sulfonamide Allergy Unknown UNSURE Unverified 06/28/20 14:48 Antibiotics) [SULFA(SULFONAMIDE ANTIBIOTICS)] morphine [MORPHINE] AdvReac Intermediate HYPOTENSION Unverified 06/28/20 14:48 MUSCLE RELAXERS Allergy Severe RASH/IMMOBI Uncoded 06/28/20 14:48 LITY Active Medications: Current Medications Generic Name Dose Route Start Last Admin Trade Name Freq PRN Reason Stop Dose Admin Acetaminophen 650 mg 06/22/21 02:46 Acetaminophen 325 Mg Tablet PO Q6H PRN Pain, Mild (Pain Scale 1-3) Albuterol/Ipratropium 3 ml 06/22/21 08:00 06/22/21 11:35 Albuterol/Iprat 2.5/0.5mg 3 Ml Ampul.Neb INHALE 3 ml RQ4H WHILE AWAKE MACIEJ Administration Albuterol/Ipratropium 3 ml 06/22/21 07:16 Albuterol/Iprat 2.5/0.5mg 3 Ml Ampul.Neb INHALE RQ4H PRN Shortness of Breath/Wheezing Allopurinol 300 mg 06/22/21 09:00 06/22/21 09:41 Allopurinol 300 Mg Tablet PO 300 mg DAILY MACIEJ Administration Aspirin 81 mg 06/22/21 09:00 06/22/21 08:47 Aspirin 81 Mg Tab.Chew PO 81 mg DAILY MACIEJ Administration Dexamethasone Sodium Phosphate 6 mg 06/22/21 09:00 06/22/21 08:47 Dexamethasone Sod Phosphate 4 Mg/Ml Vial IVPUSH 6 mg DAILY MACIEJ Administration Docusate Sodium 100 mg 06/22/21 02:46 Docusate Sodium 100 Mg Capsule PO DAILY PRN Constipation Escitalopram Oxalate 20 mg 06/22/21 09:00 06/22/21 08:47 Escitalopram Oxalate 20 Mg Tablet PO 20 mg DAILY MACIEJ Administration Fenofibrate 160 mg 06/22/21 09:00 06/22/21 09:41 Fenofibrate 160 Mg Tablet PO 160 mg DAILY MACIEJ Administration Fluticasone/Vilanterol 1 puff 06/22/21 09:00 06/22/21 07:47 Fluticasone/Vilanterol 100/25 Blst.W.Dev INHALE Not Given DAILY MACIEJ Furosemide 40 mg 06/21/21 22:01 06/22/21 08:46 Furosemide 40 Mg/4 Ml Vial IVPUSH 40 mg Q12H MACIEJ Administration Protocol Gabapentin 400 mg 06/22/21 09:00 06/22/21 08:47 Gabapentin 400 Mg Capsule PO 400 mg TID MACIEJ Administration Guaifenesin 600 mg 06/22/21 02:46 06/22/21 08:47 Guaifenesin La 600 Mg Tab.Er.12h PO 600 mg BID MCAIEJ Administration Ceftriaxone Sodium 1 gm/ 50 mls @ 100 mls/hr 06/22/21 04:00 06/22/21 05:46 Sodium Chloride IV Infused Q24H MACIEJ Infusion Doxycycline Hyclate 100 mg/ 250 mls @ 166.67 mls/hr 06/22/21 12:00 Sodium Chloride IV Q12H [facility] Non-Formulary Medication 1 patch 06/22/21 09:00 Camphor-Methyl Salicyl-Menthol [Salonpas] TOPICAL DAILY MACIEJ Omeprazole 40 mg 06/22/21 06:30 06/22/21 05:46 Omeprazole 40 Mg Capsule.Dr PO 40 mg BID@0630,1630 [facility] Administration Ondansetron HCl 4 mg 06/22/21 02:46 Ondansetron Hcl 4 Mg/2 Ml Vial IVPUSH Q8H PRN Nausea and Vomiting Rivaroxaban 20 mg 06/22/21 17:00 Rivaroxaban 20 Mg Tablet PO DAILY@1700 [facility] Sodium Chloride 3 ml 06/22/21 02:46 06/22/21 08:49 0.9 % Sodium Chloride Flush 3 Ml Syringe IVFLUSH 3 ml QSHIFT MACIEJ Administration Tamsulosin HCl 0.4 mg 06/22/21 09:00 06/22/21 08:47 Tamsulosin Hcl 0.4 Mg Capsule PO 0.4 mg DAILY MACIEJ Administration Trazodone HCl 100 mg 06/22/21 02:46 06/22/21 03:38 Trazodone Hcl 100 Mg Tablet PO Not Given BEDTIME MACIEJ Valsartan 40 mg 06/22/21 09:00 06/22/21 08:47 Valsartan 40 Mg Tablet PO 40 mg DAILY MACIEJ Administration Protocol Vitamin D 50 mcg 06/22/21 09:00 06/22/21 08:47 Cholecalciferol (Vitamin D3) 25 Mcg Tablet PO 50 mcg DAILY MACIEJ Administration Home Medications Medication Instructions Recorded Confirmed Last Taken Type allopurinol 300 mg tablet 1 tab PO DAILY 06/21/21 06/21/21 06/21/21 History aspirin 81 mg tablet 81 mg PO DAILY 06/21/21 06/21/21 06/21/21 History azithromycin 250 mg tablet 1 tab PO DIRECTED 06/21/21 06/21/21 06/21/21 History camphor 3.1 %-methyl salicylate 10 1 patch TOPICAL DAILY 06/21/21 06/21/21 06/21/21 History %-menthol 6 % topical patch (Salonpas) cholecalciferol (vitamin D3) 50 50 mcg PO DAILY 06/21/21 06/21/21 06/21/21 History mcg (2,000 unit) capsule (Vitamin D3) escitalopram oxalate 20 mg tablet 1 tab PO DAILY 06/21/21 06/21/21 06/21/21 History fenofibrate 160 mg tablet 1 tab PO DAILY 06/21/21 06/21/21 06/21/21 History fluticasone furoate 100 1 puff INHALATION DAILY 06/21/21 06/21/21 06/21/21 History mcg-vilanterol 25 mcg/dose inhalation powder (Breo Ellipta) furosemide 20 mg tablet 2 tab PO DAILY 06/21/21 06/21/21 06/21/21 History gabapentin 100 mg capsule 1 cap PO TID 06/21/21 06/21/21 06/21/21 History gabapentin 300 mg capsule 1 cap PO TID 06/21/21 06/21/21 06/21/21 History guaifenesin 600 mg tablet, 600 mg PO BID 06/21/21 06/21/21 06/21/21 History extended release 12 hr (Mucinex) omeprazole 40 mg capsule,delayed 1 cap PO BID 06/21/21 06/21/21 06/21/21 History release rivaroxaban 20 mg tablet (Xarelto) 1 tab PO DAILY 06/21/21 06/21/21 06/21/21 History tamsulosin 0.4 mg capsule 1 cap PO DAILY 06/21/21 06/21/21 06/21/21 History trazodone 100 mg tablet 1 tab PO BEDTIME 06/21/21 06/21/21 06/20/21 History valsartan 40 mg tablet 1 tab PO DAILY 06/21/21 06/21/21 06/21/21 History Physical Exam Vital Signs: Vital Signs: Last Vital Signs Temp 97.9 F 06/22/21 08:43 Pulse 68 06/22/21 11:35 Resp 14 06/22/21 08:43 BP 126/67 06/22/21 08:43 Pulse Ox 96 06/22/21 08:43 Oxygen Flow Rate 6 06/21/21 16:01 Body Mass Index 35.4 Const: General: cooperative and no acute distress HENMT: Other: Unremarkable Neck: Neck: Yes normal visual inspection Chest: Chest palpation & inspection: normal inspection of the chest Resp: Auscultation: clear to auscultation bilaterally, no crackles and no wheezes Cardio: Jugular venous distension: no JVD Palpation: normal PMI Heart sounds: S1 normal heart sound present, S2 normal heart sound present, no gallops, no murmurs and no rubs GI: Palpation (GI): Soft to palpation Back/Spine/Pelvis: Other: unremarkable Skin: General skin exam: no rashes or lesions noted Neuro: Cranial nerves: Yes Other cranial nerve findings present Extrem: General: Yes pedal edema (1+) Psych: Mental Status: other Results Labs and Meds Result diagrams: 06/22/21 06:10 06/22/21 06:10 Lab results: Laboratory Results - last 24 hr 06/21/21 06/21/21 06/21/21 17:13 17:13 17:13 WBC 5.2 RBC 3.86 L Hgb 11.1 L Hct 34.9 L MCV 90.4 MCH 28.8 MCHC 31.8 RDW 15.5 Plt Count 206 MPV 9.3 L Immature Gran % (Auto) 0.8 H Neut % (Auto) 65.8 Lymph % (Auto) 17.1 L [place] % (Auto) 12.1 H Eos % (Auto) 3.8 Baso % (Auto) 0.4 Lymph # (Auto) 0.9 L [place] # (Auto) 0.6 Eos # (Auto) 0.2 Baso # (Auto) 0.0 Abs Immat Gran (auto) 0.04 H Absolute Neuts (auto) 3.4 Absolute Nucleated RBC 0.000 Nucleated RBC % (auto) 0.0 ESR APTT 48.8 H Sodium 140 Potassium 4.2 Chloride 102 Carbon Dioxide 30 H Anion Gap 12 BUN 26 H Creatinine 1.28 Estim Creat Clear Calc 52.6 Estimated GFR 54 Random Glucose 105 Lactic Acid Calcium 9.7 Magnesium Ferritin 83 Lactate Dehydrogenase 165 Troponin I High Sens C-Reactive Protein 7.43 H B-Natriuretic Peptide Procalcitonin Urine Color Urine Appearance Urine pH Ur Specific [place] Urine Protein Urine Glucose (UA) Urine Ketones Urine Blood Urine Nitrite Ur Leukocyte Esterase Urine RBC Urine WBC Ur Squamous Epith Cells Urine Bacteria Coronavirus (PCR) Influenza Type A (PCR) Influenza Type B (PCR) RSV RNA Qual (PCR) 06/21/21 06/21/21 06/21/21 17:13 17:13 17:13 WBC RBC Hgb Hct MCV MCH MCHC RDW Plt Count MPV Immature Gran % (Auto) Neut % (Auto) Lymph % (Auto) [place] % (Auto) Eos % (Auto) Baso % (Auto) Lymph # (Auto) [place] # (Auto) Eos # (Auto) Baso # (Auto) Abs Immat Gran (auto) Absolute Neuts (auto) Absolute Nucleated RBC Nucleated RBC % (auto) ESR APTT Sodium Potassium Chloride Carbon Dioxide Anion Gap BUN Creatinine Estim Creat Clear Calc Estimated GFR Random Glucose Lactic Acid 0.9 Calcium Magnesium 1.8 Ferritin Lactate Dehydrogenase Troponin I High Sens 9.8 C-Reactive Protein B-Natriuretic Peptide Procalcitonin Urine Color Urine Appearance Urine pH Ur Specific [place] Urine Protein Urine Glucose (UA) Urine Ketones Urine Blood Urine Nitrite Ur Leukocyte Esterase Urine RBC Urine WBC Ur Squamous Epith Cells Urine Bacteria Coronavirus (PCR) Influenza Type A (PCR) Influenza Type B (PCR) RSV RNA Qual (PCR) 06/21/21 06/21/21 06/21/21 17:13 17:13 17:13 WBC RBC Hgb Hct MCV MCH MCHC RDW Plt Count MPV Immature Gran % (Auto) Neut % (Auto) Lymph % (Auto) [place] % (Auto) Eos % (Auto) Baso % (Auto) Lymph # (Auto) [place] # (Auto) Eos # (Auto) Baso # (Auto) Abs Immat Gran (auto) Absolute Neuts (auto) Absolute Nucleated RBC Nucleated RBC % (auto) ESR 49 H APTT Sodium Potassium Chloride Carbon Dioxide Anion Gap BUN Creatinine Estim Creat Clear Calc Estimated GFR Random Glucose Lactic Acid Calcium Magnesium Ferritin Lactate Dehydrogenase Troponin I High Sens C-Reactive Protein B-Natriuretic Peptide 276 H Procalcitonin Urine Color Urine Appearance Urine pH Ur Specific [place] Urine Protein Urine Glucose (UA) Urine Ketones Urine Blood Urine Nitrite Ur Leukocyte Esterase Urine RBC Urine WBC Ur Squamous Epith Cells Urine Bacteria Coronavirus (PCR) NEGATIVE Influenza Type A (PCR) NEGATIVE Influenza Type B (PCR) NEGATIVE RSV RNA Qual (PCR) NEGATIVE 06/21/21 06/22/21 06/22/21 17:13 05:31 06:10 WBC 5.3 RBC 4.07 L Hgb 11.5 L Hct 35.9 L MCV 88.2 MCH 28.3 MCHC 32.0 RDW 15.1 Plt Count 230 MPV 9.7 Immature Gran % (Auto) 0.9 H Neut % (Auto) 79.6 H Lymph % (Auto) 9.7 L [place] % (Auto) 9.4 Eos % (Auto) 0.2 Baso % (Auto) 0.2 Lymph # (Auto) 0.5 L [place] # (Auto) 0.5 Eos # (Auto) 0.0 Baso # (Auto) 0.0 Abs Immat Gran (auto) 0.05 H Absolute Neuts (auto) 4.3 Absolute Nucleated RBC 0.000 Nucleated RBC % (auto) 0.0 ESR APTT Sodium Potassium Chloride Carbon Dioxide Anion Gap BUN Creatinine Estim Creat Clear Calc Estimated GFR Random Glucose Lactic Acid Calcium Magnesium Ferritin Lactate Dehydrogenase Troponin I High Sens C-Reactive Protein B-Natriuretic Peptide Procalcitonin 0.07 Urine Color YELLOW Urine Appearance CLEAR Urine pH 6.0 Ur Specific [place] <= 1.005 Urine Protein NEG Urine Glucose (UA) NEG Urine Ketones NEG Urine Blood TRACE Urine Nitrite NEG Ur Leukocyte Esterase NEG Urine RBC 1-4 Urine WBC 0 Ur Squamous Epith Cells NONE Urine Bacteria NONE Coronavirus (PCR) Influenza Type A (PCR) Influenza Type B (PCR) RSV RNA Qual (PCR) 06/22/21 06:10 WBC RBC Hgb Hct MCV MCH MCHC RDW Plt Count MPV Immature Gran % (Auto) Neut % (Auto) Lymph % (Auto) [place] % (Auto) Eos % (Auto) Baso % (Auto) Lymph # (Auto) [place] # (Auto) Eos # (Auto) Baso # (Auto) Abs Immat Gran (auto) Absolute Neuts (auto) Absolute Nucleated RBC Nucleated RBC % (auto) ESR APTT Sodium 139 Potassium 4.2 Chloride 100 Carbon Dioxide 28 Anion Gap 15 BUN 25 H Creatinine 1.30 Estim Creat Clear Calc 51.8 Estimated GFR 53 Random Glucose 124 H Lactic Acid Calcium 9.9 Magnesium Ferritin Lactate Dehydrogenase Troponin I High Sens C-Reactive Protein B-Natriuretic Peptide Procalcitonin Urine Color Urine Appearance Urine pH Ur Specific [place] Urine Protein Urine Glucose (UA) Urine Ketones Urine Blood Urine Nitrite Ur Leukocyte Esterase Urine RBC Urine WBC Ur Squamous Epith Cells Urine Bacteria Coronavirus (PCR) Influenza Type A (PCR) Influenza Type B (PCR) RSV RNA Qual (PCR) ECG Interpretation: EKG shows ventricular paced rhythm at 68/Min. Atrial rhythm was not clear. Imaging Radiologist's impression: Impressions Chest CT 06/21/21 16:19 IMPRESSION: Patchy areas of bilateral groundglass opacity are present. This is nonspecific. This could represent an infectious or inflammatory process including viral COVID pneumonitis. Alveolar pulmonary edema, pulmonary hemorrhage, or other etiologies could be considered in the appropriate clinical setting. Recommend follow-up after treatment to confirm resolution. There is cardiomegaly. No pleural effusions are present. Venous Duplex 06/21/21 18:01 IMPRESSION: No DVT demonstrated in the left lower extremity. Assessment and Plan (1) Acute respiratory failure with hypoxia: Status: Acute (2) Acute on chronic diastolic heart failure: Status: Acute Unremarkable high sensitivity troponins. Slightly increased cardiac BNP. CT chest findings noted. This seems rather more pulmonary in nature but cannot exclude any component of diastolic heart failure. Okay to try some empiric diuretics today. Otherwise pacemaker was checked today and shows normal function. Will follow-up with you. Echocardiogram when able. Procedures Date of Service Date of Service: 06/22/21
[2021-06-22] MEDS: Doxycycline Hyclate 100 MG in 0.9 % Sodium Chloride 250 ML 166.67 MG IV ×2 (12:57→23:44)
--- NOTE | 2021-06-22 14:41 | P.PNIM_ITS ---
Subjective Subjective Date of Service: 06/22/21 Interval History: the patient was seen and evaluated this morning Laying in bed, feels improvement since admission Denies any fever, chills or chest pain Continue to complain of cough along with lower extremity swelling and erythema No reported other overnight events. Systemic review: No fever, chills or weakness No chest pain, palpitation Shortness of breath and episodes of cough No abdominal pain, nausea or vomiting No urinary symptoms Erythema bilateral lower extremities Physical Exam Vital Signs: Vital Signs: Last Vital Signs Temp 97.9 F 06/22/21 08:43 Pulse 68 06/22/21 12:56 Resp 16 06/22/21 12:56 BP 118/62 06/22/21 12:56 Pulse Ox 97 06/22/21 12:56 Oxygen Flow Rate 6 06/21/21 16:01 Body Mass Index 35.4 Const: Other: Constitutional : Alert, oriented Neck : Normal inspection, Supple Cardiovascular : RRR, S1 S2, +1 bilateral lower extremity edema Respiratory : Fair bilateral air entry, basal fine crackles, wheezes or rhonchi Gastrointestinal: soft, lax, Normal bowel sounds, Non tender Skin : Warm, Dry Neurological : Alert & oriented x3, No focal deficit Objective Data Active Medications Acetaminophen (Acetaminophen 325 Mg Tablet) 650 mg PO Q6H PRN PRN Reason: Pain, Mild (Pain Scale 1-3) Albuterol/Ipratropium (Albuterol/Iprat 2.5/0.5mg 3 Ml Ampul.Neb) 3 ml INHALE RQ4H WHILE AWAKE [facility] Last Admin: 06/22/21 11:35 Dose: 3 ml Documented by: ADELA Albuterol/Ipratropium (Albuterol/Iprat 2.5/0.5mg 3 Ml Ampul.Neb) 3 ml INHALE RQ4H PRN PRN Reason: Shortness of Breath/Wheezing Allopurinol (Allopurinol 300 Mg Tablet) 300 mg PO DAILY [facility] Last Admin: 06/22/21 09:41 Dose: 300 mg Documented by: ANNIE Aspirin (Aspirin 81 Mg Tab.Chew) 81 mg PO DAILY [facility] Last Admin: 06/22/21 08:47 Dose: 81 mg Documented by: ANNIE Dexamethasone Sodium Phosphate (Dexamethasone Sod Phosphate 4 Mg/Ml Vial) 6 mg IVPUSH DAILY [facility] Last Admin: 06/22/21 08:47 Dose: 6 mg Documented by: ANNIE Docusate Sodium (Docusate Sodium 100 Mg Capsule) 100 mg PO DAILY PRN PRN Reason: Constipation Escitalopram Oxalate (Escitalopram Oxalate 20 Mg Tablet) 20 mg PO DAILY [facility] Last Admin: 06/22/21 08:47 Dose: 20 mg Documented by: ANNIE Fenofibrate (Fenofibrate 160 Mg Tablet) 160 mg PO DAILY [facility] Last Admin: 06/22/21 09:41 Dose: 160 mg Documented by: ANNIE Fluticasone/Vilanterol (Fluticasone/Vilanterol 100/25 Blst.W.Dev) 1 puff INHALE DAILY [facility] Last Admin: 06/22/21 07:47 Dose: Not Given Documented by: ADELA Non-Admin Reason: Med Not Available Furosemide (Furosemide 40 Mg/4 Ml Vial) 40 mg IVPUSH Q12H [facility]; Protocol Last Admin: 06/22/21 08:46 Dose: 40 mg Documented by: ANNIE Gabapentin (Gabapentin 400 Mg Capsule) 400 mg PO TID [facility] Last Admin: 06/22/21 08:47 Dose: 400 mg Documented by: ANNIE Guaifenesin (Guaifenesin La 600 Mg Tab.Er.12h) 600 mg PO BID [facility] Last Admin: 06/22/21 08:47 Dose: 600 mg Documented by: ANNIE Ceftriaxone Sodium 1 gm/ (Sodium Chloride) 50 mls @ 100 mls/hr IV Q24H [facility] Last Infusion: 06/22/21 05:46 Dose: 0 mls/hr Documented by: KERRIE Doxycycline Hyclate 100 mg/ (Sodium Chloride) 250 mls @ 166.67 mls/hr IV Q12H [facility] Last Admin: 06/22/21 12:57 Dose: 166.67 mls/hr Documented by: ANNIE Non-Formulary Medication (Camphor-Methyl Salicyl-Menthol [Salonpas]) 1 patch TOPICAL DAILY [facility] Omeprazole (Omeprazole 40 Mg Capsule.Dr) 40 mg PO BID@0630,1630 [facility] Last Admin: 06/22/21 05:46 Dose: 40 mg Documented by: KERRIE Ondansetron HCl (Ondansetron Hcl 4 Mg/2 Ml Vial) 4 mg IVPUSH Q8H PRN PRN Reason: Nausea and Vomiting Rivaroxaban (Rivaroxaban 20 Mg Tablet) 20 mg PO DAILY@1700 [facility] Sodium Chloride (0.9 % Sodium Chloride Flush 3 Ml Syringe) 3 ml IVFLUSH QSHIFT [facility] Last Admin: 06/22/21 08:49 Dose: 3 ml Documented by: ANNIE Tamsulosin HCl (Tamsulosin Hcl 0.4 Mg Capsule) 0.4 mg PO DAILY [facility] Last Admin: 06/22/21 08:47 Dose: 0.4 mg Documented by: ANNIE Trazodone HCl (Trazodone Hcl 100 Mg Tablet) 100 mg PO BEDTIME [facility] Last Admin: 06/22/21 03:38 Dose: Not Given Documented by: KERRIE Non-Admin Reason: Patient Asleep Valsartan (Valsartan 40 Mg Tablet) 40 mg PO DAILY [facility]; Protocol Last Admin: 06/22/21 08:47 Dose: 40 mg Documented by: ANNIE Vitamin D (Cholecalciferol (Vitamin D3) 25 Mcg Tablet) 50 mcg PO DAILY [facility] Last Admin: 06/22/21 08:47 Dose: 50 mcg Documented by: ANNIE Labs CBC & Chem 7: 06/22/21 06:10 06/22/21 06:10 Labs: Laboratory Results - last 24 hr 06/21/21 06/21/21 06/21/21 17:13 17:13 17:13 MCV 90.4 MCH 28.8 MCHC 31.8 RDW 15.5 Plt Count 206 MPV 9.3 L Immature Gran % (Auto) 0.8 H Neut % (Auto) 65.8 Lymph % (Auto) 17.1 L Dawson % (Auto) 12.1 H Eos % (Auto) 3.8 Baso % (Auto) 0.4 Lymph # (Auto) 0.9 L Dawson # (Auto) 0.6 Eos # (Auto) 0.2 Baso # (Auto) 0.0 Abs Immat Gran (auto) 0.04 H Absolute Neuts (auto) 3.4 Absolute Nucleated RBC 0.000 Nucleated RBC % (auto) 0.0 ESR APTT 48.8 H Anion Gap 12 Estim Creat Clear Calc 52.6 Estimated GFR 54 Random Glucose 105 Lactic Acid Calcium 9.7 Magnesium Ferritin 83 Lactate Dehydrogenase 165 Troponin I High Sens C-Reactive Protein 7.43 H B-Natriuretic Peptide Procalcitonin Urine Color Urine Appearance Urine pH Ur Specific Ruffin Urine Protein Urine Glucose (UA) Urine Ketones Urine Blood Urine Nitrite Ur Leukocyte Esterase Urine RBC Urine WBC Ur Squamous Epith Cells Urine Bacteria Coronavirus (PCR) Influenza Type A (PCR) Influenza Type B (PCR) RSV RNA Qual (PCR) 06/21/21 06/21/21 06/21/21 17:13 17:13 17:13 MCV MCH MCHC RDW Plt Count MPV Immature Gran % (Auto) Neut % (Auto) Lymph % (Auto) Dawson % (Auto) Eos % (Auto) Baso % (Auto) Lymph # (Auto) Dawson # (Auto) Eos # (Auto) Baso # (Auto) Abs Immat Gran (auto) Absolute Neuts (auto) Absolute Nucleated RBC Nucleated RBC % (auto) ESR APTT Anion Gap Estim Creat Clear Calc Estimated GFR Random Glucose Lactic Acid 0.9 Calcium Magnesium 1.8 Ferritin Lactate Dehydrogenase Troponin I High Sens 9.8 C-Reactive Protein B-Natriuretic Peptide Procalcitonin Urine Color Urine Appearance Urine pH Ur Specific Ruffin Urine Protein Urine Glucose (UA) Urine Ketones Urine Blood Urine Nitrite Ur Leukocyte Esterase Urine RBC Urine WBC Ur Squamous Epith Cells Urine Bacteria Coronavirus (PCR) Influenza Type A (PCR) Influenza Type B (PCR) RSV RNA Qual (PCR) 06/21/21 06/21/21 06/21/21 17:13 17:13 17:13 MCV MCH MCHC RDW Plt Count MPV Immature Gran % (Auto) Neut % (Auto) Lymph % (Auto) Dawson % (Auto) Eos % (Auto) Baso % (Auto) Lymph # (Auto) Dawson # (Auto) Eos # (Auto) Baso # (Auto) Abs Immat Gran (auto) Absolute Neuts (auto) Absolute Nucleated RBC Nucleated RBC % (auto) ESR 49 H APTT Anion Gap Estim Creat Clear Calc Estimated GFR Random Glucose Lactic Acid Calcium Magnesium Ferritin Lactate Dehydrogenase Troponin I High Sens C-Reactive Protein B-Natriuretic Peptide 276 H Procalcitonin Urine Color Urine Appearance Urine pH Ur Specific Ruffin Urine Protein Urine Glucose (UA) Urine Ketones Urine Blood Urine Nitrite Ur Leukocyte Esterase Urine RBC Urine WBC Ur Squamous Epith Cells Urine Bacteria Coronavirus (PCR) NEGATIVE Influenza Type A (PCR) NEGATIVE Influenza Type B (PCR) NEGATIVE RSV RNA Qual (PCR) NEGATIVE 06/21/21 06/22/21 06/22/21 17:13 05:31 06:10 MCV 88.2 MCH 28.3 MCHC 32.0 RDW 15.1 Plt Count 230 MPV 9.7 Immature Gran % (Auto) 0.9 H Neut % (Auto) 79.6 H Lymph % (Auto) 9.7 L Dawson % (Auto) 9.4 Eos % (Auto) 0.2 Baso % (Auto) 0.2 Lymph # (Auto) 0.5 L Dawson # (Auto) 0.5 Eos # (Auto) 0.0 Baso # (Auto) 0.0 Abs Immat Gran (auto) 0.05 H Absolute Neuts (auto) 4.3 Absolute Nucleated RBC 0.000 Nucleated RBC % (auto) 0.0 ESR APTT Anion Gap Estim Creat Clear Calc Estimated GFR Random Glucose Lactic Acid Calcium Magnesium Ferritin Lactate Dehydrogenase Troponin I High Sens C-Reactive Protein B-Natriuretic Peptide Procalcitonin 0.07 Urine Color YELLOW Urine Appearance CLEAR Urine pH 6.0 Ur Specific Ruffin <= 1.005 Urine Protein NEG Urine Glucose (UA) NEG Urine Ketones NEG Urine Blood TRACE Urine Nitrite NEG Ur Leukocyte Esterase NEG Urine RBC 1-4 Urine WBC 0 Ur Squamous Epith Cells NONE Urine Bacteria NONE Coronavirus (PCR) Influenza Type A (PCR) Influenza Type B (PCR) RSV RNA Qual (PCR) 06/22/21 06:10 MCV MCH MCHC RDW Plt Count MPV Immature Gran % (Auto) Neut % (Auto) Lymph % (Auto) Dawson % (Auto) Eos % (Auto) Baso % (Auto) Lymph # (Auto) Dawson # (Auto) Eos # (Auto) Baso # (Auto) Abs Immat Gran (auto) Absolute Neuts (auto) Absolute Nucleated RBC Nucleated RBC % (auto) ESR APTT Anion Gap 15 Estim Creat Clear Calc 51.8 Estimated GFR 53 Random Glucose 124 H Lactic Acid Calcium 9.9 Magnesium Ferritin Lactate Dehydrogenase Troponin I High Sens C-Reactive Protein B-Natriuretic Peptide Procalcitonin Urine Color Urine Appearance Urine pH Ur Specific Ruffin Urine Protein Urine Glucose (UA) Urine Ketones Urine Blood Urine Nitrite Ur Leukocyte Esterase Urine RBC Urine WBC Ur Squamous Epith Cells Urine Bacteria Coronavirus (PCR) Influenza Type A (PCR) Influenza Type B (PCR) RSV RNA Qual (PCR) Assessment and Plan (1) Acute on chronic diastolic heart failure: Status: Acute (2) Acute respiratory failure with hypoxia: Status: Acute (3) Pneumonia: Status: Acute Assessment and Plan: This is an 86-year-old male with past medical history of CHF and COPD presents the hospital with hypoxia # acute hypoxic respiratory failure # CHF exacerbation likely 2/2 CHF exacerbation as well as possible pneumonia CT showing bilateral multifocal infiltrates concerning for viral pneumonia versus edema has lower extremity edema as well as elevated BNP Discontinue dexamethasone Continue IV Lasix strict I&O, daily weight, low-sodium diet Wean oxygen down as tolerated Pending echocardiogram cardiology consult # Pneumonia Concerns for underlying infection with atelectasis reported Incentive spirometry Antibiotics of doxycycline and ceftriaxone # COPD does not appear to have any exacerbation DuoNeb # history of DVT venous duplex of right lower extremity that has increased swelling is negative for any acute DVT continue Xarelto # BPH continues tamsulosin # HTN continue valsartan DVT prophylaxis Xarelto Quality Stroke Does the patient have a stroke diagnosis?: No VTE Prior VTE?: Yes VTE Risk Level:: Medical - moderate - high VTE Device Contraindication: Treatment Not Indicated VTE Drug Contraindication: N/A - Med Ordered
[2021-06-22 15:05] LABS: Adenovirus PCR Not Detected (Not Detect.); Bordetella parapertussis PCR Not Detected (Not Detect.); Bordetella pertussis PCR Not Detected (Not Detect.); Chlamydia pneumoniae PCR Not Detected (Not Detect.); Coronavirus 229E PCR Not Detected (Not Detect.); Coronavirus HKU1 PCR Not Detected (Not Detect.); Coronavirus NL63 PCR Not Detected (Not Detect.); Coronavirus OC43 PCR Not Detected (Not Detect.); Human metapneumovirus PCR Not Detected (Not Detect.); Influenza A PCR Not Detected (Not Detect.); Influenza B PCR Not Detected (Not Detect.); Mycoplasma pneumoniae PCR Not Detected (Not Detect.); Parainfluenza 1 PCR Not Detected (Not Detect.); Parainfluenza 2 PCR Not Detected (Not Detect.); Parainfluenza 3 PCR Not Detected (Not Detect.); Parainfluenza 4 PCR Not Detected (Not Detect.); RSV PCR Not Detected (Not Detect.); Rhino/Enterovirus PCR Not Detected (Not Detect.); SARS-CoV-2 PCR Not Detected (Not Detect.)
[2021-06-22] MEDS: Rivaroxaban 20 MG TABLET PO (17:36)
--- NOTE | 2021-06-22 19:59 | PC.NURSE ---
pt report given to rn on floor, pt ready for transport.
[2021-06-22] MEDS: traZODone HCL 100 MG TABLET PO (21:06)
[2021-06-23] VITALS (8 sets, daily range): BP systolic 101–143; BP diastolic 55–89; PULSE 67–120; RESP 18–22; TEMP 35.9–37; O2SAT 91–100; BMI 34.6
--- NOTE | 2021-06-23 05:11 | PC.NURSE ---
Assumed care of pt at 21:00. Pt A&Ox4, legally blind in both eyes. Pt states he uses both a walker and wheelchair at the assisted living apartment in which he lives. States he has some help from the staff there but his friend helps him most of the time by doing shopping and housekeeping. 20G IV to left forearm patent upon arrival, IV Lasix given with no issue followed by saline flush. Attempted to infuse Doxycycline at 12am and IV infiltrated immediately after connecting. IV removed, ice pack applied and arm elevated on pillow. This RN attempted IV insertion two times with no success, pt's veins roll. Nursing supervisor wet room contacted and tried two times with no success. Pt disagreeable to having anyone else try to insert an IV at this time. Pt educated on importance of receiving his IV antibiotics. Stated he will think about letting someone else try during the day today.
[2021-06-23] MEDS: Omeprazole 40 MG CAPSULE.DR PO ×2 (05:53→16:44)
[2021-06-23 06:46] LABS: Hematocrit 34.4 % (42-52); Hemoglobin 10.9 g/dl (14.0-18.0); Mean Corpuscular HGB Conc 31.7 g/dl (31.0-36.0); Mean Corpuscular Hemoglobin 28.2 pg (27.0-33.0); Mean Corpuscular Volume 88.9 fL (80-98); Mean Platelet Volume 9.9 fL (9.4-12.4); Platelet Count 233 X10*3/uL (160-400); Red Blood Count 3.87 X10*6/uL (4.60-5.80); Red Cell Distribution Width 15.2 % (11.0-16.0); White Blood Count 5.6 X10*3/uL (4.8-10.8)
[2021-06-23 07:04] LABS: Anion Gap 15 (12-20); B Type Natriuretic Peptide 127 pg/mL (<100); Blood Urea Nitrogen 36 mg/dL (9-16); Carbon Dioxide 30 mmol/L (22-29); Chloride 102 mmol/L (96-108); Creatinine Clr Calc Pharmacy 48.5; Estimated Glomerular Filt Rate 52; Glucose Random 101 mg/dL (60-115); Potassium 3.7 mmol/L (3.3-5.1); Sodium 143 mmol/L (135-145)
[2021-06-23] MEDS: guaiFENesin LA 600 MG TAB.ER.12H PO ×2 (07:51→20:55)
[2021-06-23] MEDS: Escitalopram Oxalate 20 MG TABLET PO (07:51)
[2021-06-23] MEDS: 0.9 % Sodium Chloride Flush 3 ML SYRINGE IVFLUSH ×2 (07:51→16:45)
[2021-06-23] MEDS: Valsartan 40 MG TABLET PO (07:52)
[2021-06-23] MEDS: Fenofibrate 160 MG TABLET PO (07:52)
[2021-06-23] MEDS: Aspirin 81 MG TAB.CHEW PO (07:52)
[2021-06-23] MEDS: Tamsulosin HCL 0.4 MG CAPSULE PO (07:52)
[2021-06-23] MEDS: Gabapentin 400 MG CAPSULE PO ×3 (07:52→20:55)
[2021-06-23] MEDS: Cholecalciferol (Vitamin D3) 25 MCG TABLET 50 MCG PO (07:53)
[2021-06-23] MEDS: allopurinoL 300 MG TABLET PO (07:53)
--- NOTE | 2021-06-23 09:39 | MHC.CM.PN ---
Called contact #1, niece, no answer and VM not specific to person, unable to leave a confidential VM. Called contact # 2; patient lives at [facility], no prior services, owns a WC and walker for equipment, does not drive but rather takes either the facility van for transport to appts or [facility] [employer] will take him. Had [facility] a long time ago per daughter, but no recent services. Niece lives local; may be able to transport upon D/C readiness, but TBD. May also require a PT eval prior to D/C, daughter aware and in agreement. Desired plan is home (?) services vs maybe rehab. CM to follow.
[2021-06-23] MEDS: Furosemide 40 MG/4 ML VIAL IVPUSH (10:28)
--- NOTE | 2021-06-23 11:01 | P.PNCA_ITS ---
Subjective Subjective Date of Service: 06/23/21 Interval history: States that he feels. Slight blood from nose but no cardiac symptoms. Review of Systems Review of Systems Yes all other systems are reviewed and are negative Cardiovascular: Reports as per HPI, Reports no additional cardiovascular compl aints, Denies acrocyanosis, Denies cool extremities, Denies painful fingertips, Denies chest pain, Denies chest pain at rest, Denies diaphoresis, Denies syncope, Denies irregular heart rhythm, Denies claudication, Denies leg edema, Denies lightheadedness, Denies palpitations and Reports dyspnea Respiratory: Reports cough and Reports dyspnea Denies syncope Endocrine: Denies palpitations Physical Exam Vital Signs: Last Vital Signs Temp 97.9 F 06/23/21 08:00 Pulse 70 06/23/21 08:00 Resp 19 06/23/21 08:00 BP 140/67 H 06/23/21 08:00 Pulse Ox 95 06/23/21 08:00 Oxygen Flow Rate 6 06/21/21 16:01 Body Mass Index 34.6 Const General: cooperative and no acute distress [facility] Other: Unremarkable Neck Neck: Yes normal visual inspection Chest Chest palpation & inspection: normal inspection of the chest Resp Auscultation: clear to auscultation bilaterally, no crackles and no wheezes Cardio Jugular venous distension: no JVD Palpation: normal PMI Heart sounds: S1 normal heart sound present, S2 normal heart sound present, no gallops, no murmurs and no rubs GI Palpation (GI): Soft to palpation Back/Spine/Pelvis Other: unremarkable Skin General skin exam: no rashes or lesions noted Neuro Cranial nerves: Yes Other cranial nerve findings present Extrem General: Yes pedal edema (1+) Psych Mental Status: other Results Labs and Meds Result diagrams: 06/23/21 06:03 06/23/21 06:03 Lab results: Laboratory Results - last 24 hr 06/22/21 06/23/21 06/23/21 14:55 06:03 06:03 WBC 5.6 RBC 3.87 L Hgb 10.9 L Hct 34.4 L MCV 88.9 MCH 28.2 MCHC 31.7 RDW 15.2 Plt Count 233 MPV 9.9 Absolute Nucleated RBC 0.000 Nucleated RBC % (auto) 0.0 Sodium 143 Potassium 3.7 Chloride 102 Carbon Dioxide 30 H Anion Gap 15 BUN 36 H Creatinine 1.32 Estim Creat Clear Calc 48.5 Estimated GFR 52 Random Glucose 101 Calcium 10.0 B-Natriuretic Peptide Respiratory Panel Clemente See Note Adenovirus (Rapid PCR) Not Detected B.pert (TEM-PCR) Not Detected B.parapertussis DNA PCR Not Detected C. pneumoniae DNA (PCR) Not Detected Coronavirus OC43 (PCR) Not Detected Coronavirus HKU1 (PCR) Not Detected Coronavirus 229E (PCR) Not Detected Coronavirus NL63 (PCR) Not Detected Human Metapneumovir PCR Not Detected Influenza A (RT-PCR) Not Detected Influenza B (RT-PCR) Not Detected M. pneumoniae (PCR) Not Detected Parainfluenza 1 (PCR) Not Detected Parainfluenza 2 (PCR) Not Detected Parainfluenza 3 (PCR) Not Detected Parainfluenza 4 (PCR) Not Detected RSV (PCR) Not Detected Entero/Rhino (PCR) Not Detected SARS-CoV-2 RNA (RT-PCR) Not Detected 06/23/21 06:03 WBC RBC Hgb Hct MCV MCH MCHC RDW Plt Count MPV Absolute Nucleated RBC Nucleated RBC % (auto) Sodium Potassium Chloride Carbon Dioxide Anion Gap BUN Creatinine Estim Creat Clear Calc Estimated GFR Random Glucose Calcium B-Natriuretic Peptide 127 H Respiratory Panel Clemente Adenovirus (Rapid PCR) B.pert (TEM-PCR) B.parapertussis DNA PCR C. pneumoniae DNA (PCR) Coronavirus OC43 (PCR) Coronavirus HKU1 (PCR) Coronavirus 229E (PCR) Coronavirus NL63 (PCR) Human Metapneumovir PCR Influenza A (RT-PCR) Influenza B (RT-PCR) M. pneumoniae (PCR) Parainfluenza 1 (PCR) Parainfluenza 2 (PCR) Parainfluenza 3 (PCR) Parainfluenza 4 (PCR) RSV (PCR) Entero/Rhino (PCR) SARS-CoV-2 RNA (RT-PCR) Progress Note: A&P Assessment and plan (1) Acute respiratory failure with hypoxia: Status: Acute (2) Acute on chronic diastolic heart failure: Status: Acute Assessment and Plan: Unremarkable high sensitivity troponins. Slightly increased cardiac BNP. CT chest findings noted. This seems rather more pulmonary in nature but cannot exclude any component of diastolic heart failure. Change to PO diuretics. Otherwise pacemaker was checked and shows normal function. A paced 52% and V paced >99%. Echocardiogram thursday. Fall Risk Details Current Medications: Current Medications Generic Name Dose Route Start Last Admin Trade Name Freq PRN Reason Stop Dose Admin Acetaminophen 650 mg 06/22/21 02:46 Acetaminophen 325 Mg Tablet PO Q6H PRN Pain, Mild (Pain Scale 1-3) Albuterol/Ipratropium 3 ml 06/22/21 08:00 06/23/21 07:53 Albuterol/Iprat 2.5/0.5mg 3 Ml Ampul.Neb INHALE Not Given RQ4H WHILE AWAKE MACIEJ Albuterol/Ipratropium 3 ml 06/22/21 07:16 Albuterol/Iprat 2.5/0.5mg 3 Ml Ampul.Neb INHALE RQ4H PRN Shortness of Breath/Wheezing Allopurinol 300 mg 06/22/21 09:00 06/23/21 07:53 Allopurinol 300 Mg Tablet PO 300 mg DAILY MACIEJ Administration Aspirin 81 mg 06/22/21 09:00 06/23/21 07:52 Aspirin 81 Mg Tab.Chew PO 81 mg DAILY MACIEJ Administration Docusate Sodium 100 mg 06/22/21 02:46 Docusate Sodium 100 Mg Capsule PO DAILY PRN Constipation Escitalopram Oxalate 20 mg 06/22/21 09:00 06/23/21 07:51 Escitalopram Oxalate 20 Mg Tablet PO 20 mg DAILY MACIEJ Administration Fenofibrate 160 mg 06/22/21 09:00 06/23/21 07:52 Fenofibrate 160 Mg Tablet PO 160 mg DAILY MACIEJ Administration Fluticasone/Vilanterol 1 puff 06/22/21 09:00 06/23/21 07:51 Fluticasone/Vilanterol 100/25 Blst.W.Dev INHALE Not Given DAILY MACIEJ Furosemide 40 mg 06/21/21 22:01 06/22/21 21:06 Furosemide 40 Mg/4 Ml Vial IVPUSH 40 mg Q12H MACIEJ Administration Protocol Gabapentin 400 mg 06/22/21 09:00 06/23/21 07:52 Gabapentin 400 Mg Capsule PO 400 mg TID MACIEJ Administration Guaifenesin 600 mg 06/22/21 02:46 06/23/21 07:51 Guaifenesin La 600 Mg Tab.Er.12h PO 600 mg BID MACIEJ Administration Ceftriaxone Sodium 1 gm/ 50 mls @ 100 mls/hr 06/22/21 04:00 06/23/21 05:10 Sodium Chloride IV Not Given Q24H MACIEJ Doxycycline Hyclate 100 mg/ 250 mls @ 166.67 mls/hr 06/22/21 12:00 06/23/21 05:56 Sodium Chloride IV Infused Q12H MACIEJ Infusion Non-Formulary Medication 1 patch 06/22/21 09:00 Camphor-Methyl Salicyl-Menthol [Salonpas] TOPICAL DAILY MACIEJ Omeprazole 40 mg 06/22/21 06:30 06/23/21 05:53 Omeprazole 40 Mg Capsule. PO 40 mg BID@0630,1630 MACIEJ Administration Ondansetron HCl 4 mg 06/22/21 02:46 Ondansetron Hcl 4 Mg/2 Ml Vial IVPUSH Q8H PRN Nausea and Vomiting Rivaroxaban 20 mg 06/22/21 17:00 06/22/21 17:36 Rivaroxaban 20 Mg Tablet PO 20 mg DAILY@1700 MACIEJ Administration Sodium Chloride 3 ml 06/22/21 02:46 06/23/21 07:51 0.9 % Sodium Chloride Flush 3 Ml Syringe IVFLUSH 3 ml QSHIFT MACIEJ Administration Tamsulosin HCl 0.4 mg 06/22/21 09:00 06/23/21 07:52 Tamsulosin Hcl 0.4 Mg Capsule PO 0.4 mg DAILY MACIEJ Administration Trazodone HCl 100 mg 06/22/21 02:46 06/22/21 21:06 Trazodone Hcl 100 Mg Tablet PO 100 mg BEDTIME MACIEJ Administration Valsartan 40 mg 06/22/21 09:00 06/23/21 07:52 Valsartan 40 Mg Tablet PO 40 mg DAILY MACIEJ Administration Protocol Vitamin D 50 mcg 06/22/21 09:00 06/23/21 07:53 Cholecalciferol (Vitamin D3) 25 Mcg Tablet PO 50 mcg DAILY MACIEJ Administration Time Spent With Patient Time: Total time spent is greater than 50% in coordination of care (as documented) at patient's floor/unit and/or counseling patient: Time with patient: less than 15 minutes Progress Note: Quality Stroke Does the patient have a stroke diagnosis?: No Procedures Date of Service Date of Service: 06/23/21
--- NOTE | 2021-06-23 11:01 | MHC.CM.PN ---
Spoke with patient's nurse; patient's functional indicators necessitating a PT evaluation. Nurse messaging MD for order for PT eval for tomorrow morning, Thursday. Plan may transition to inpatient rehab. Pending PT eval outcomes and recommendations.
[2021-06-23] MEDS: Albuterol/Iprat 2.5/0.5MG 3 ML AMPUL.NEB INHALE ×3 (11:04→21:01)
--- NOTE | 2021-06-23 12:15 | P.PNIM_ITS ---
Subjective Subjective Date of Service: 06/23/21 Interval History: the patient was seen and evaluated this morning Laying in bed, feels better today Denies any fever, chills or chest pain Still having cough No reported other overnight events. Systemic review: No fever, chills or weakness No chest pain, palpitation Shortness of breath and episodes of cough No abdominal pain, nausea or vomiting No urinary symptoms Erythema bilateral lower extremities Physical Exam Vital Signs: Vital Signs: Last Vital Signs Temp 96.6 F L 06/23/21 11:39 Pulse 90 06/23/21 11:39 Resp 20 06/23/21 11:39 BP 101/63 06/23/21 11:39 Pulse Ox 94 06/23/21 11:39 Oxygen Flow Rate 6 06/21/21 16:01 Body Mass Index 34.6 Const: Other: Constitutional : Alert, oriented Neck : Normal inspection, Supple Cardiovascular : RRR, S1 S2, trace bilateral lower extremity edema Respiratory : Fair bilateral air entry, basal fine crackles, wheezes or rhonchi Gastrointestinal: soft, lax, Normal bowel sounds, Non tender Skin : Warm, Dry, bilateral lower extremity chronic stasis dermatitis with mild erythema and warmth. Neurological : Alert & oriented x3, No focal deficit Objective Data Active Medications Acetaminophen (Acetaminophen 325 Mg Tablet) 650 mg PO Q6H PRN PRN Reason: Pain, Mild (Pain Scale 1-3) Albuterol/Ipratropium (Albuterol/Iprat 2.5/0.5mg 3 Ml Ampul.Neb) 3 ml INHALE RQ4H WHILE AWAKE [facility] Last Admin: 06/23/21 11:04 Dose: 3 ml Documented by: ADELA Albuterol/Ipratropium (Albuterol/Iprat 2.5/0.5mg 3 Ml Ampul.Neb) 3 ml INHALE RQ4H PRN PRN Reason: Shortness of Breath/Wheezing Allopurinol (Allopurinol 300 Mg Tablet) 300 mg PO DAILY [facility] Last Admin: 06/23/21 07:53 Dose: 300 mg Documented by: KARSON Aspirin (Aspirin 81 Mg Tab.Chew) 81 mg PO DAILY [facility] Last Admin: 06/23/21 07:52 Dose: 81 mg Documented by: KARSON Docusate Sodium (Docusate Sodium 100 Mg Capsule) 100 mg PO DAILY PRN PRN Reason: Constipation Escitalopram Oxalate (Escitalopram Oxalate 20 Mg Tablet) 20 mg PO DAILY [facility] Last Admin: 06/23/21 07:51 Dose: 20 mg Documented by: KARSON Fenofibrate (Fenofibrate 160 Mg Tablet) 160 mg PO DAILY [facility] Last Admin: 06/23/21 07:52 Dose: 160 mg Documented by: KARSON Fluticasone/Vilanterol (Fluticasone/Vilanterol 100/25 Blst.W.Dev) 1 puff INHALE DAILY [facility] Last Admin: 06/23/21 07:51 Dose: Not Given Documented by: ADELA Non-Admin Reason: med unavail Furosemide (Furosemide 40 Mg/4 Ml Vial) 40 mg IVPUSH Q12H [facility]; Protocol Last Admin: 06/23/21 10:28 Dose: 40 mg Documented by: KARSON Gabapentin (Gabapentin 400 Mg Capsule) 400 mg PO TID [facility] Last Admin: 06/23/21 07:52 Dose: 400 mg Documented by: KARSON Guaifenesin (Guaifenesin La 600 Mg Tab.Er.12h) 600 mg PO BID [facility] Last Admin: 06/23/21 07:51 Dose: 600 mg Documented by: KARSON Ceftriaxone Sodium 1 gm/ (Sodium Chloride) 50 mls @ 100 mls/hr IV Q24H [facility] Last Admin: 06/23/21 05:10 Dose: Not Given Documented by: KERRIE Non-Admin Reason: No Access Doxycycline Hyclate 100 mg/ (Sodium Chloride) 250 mls @ 166.67 mls/hr IV Q12H [facility] Last Infusion: 06/23/21 05:56 Dose: 0 mls/hr Documented by: KERRIE Non-Formulary Medication (Camphor-Methyl Salicyl-Menthol [Salonpas]) 1 patch TOPICAL DAILY [facility] Nystatin (Nystatin Powder 15 Gm Bottle) 1 appl TOPICAL BID [facility]; Protocol Omeprazole (Omeprazole 40 Mg Capsule.Dr) 40 mg PO BID@0630,1630 [facility] Last Admin: 06/23/21 05:53 Dose: 40 mg Documented by: KERRIE Ondansetron HCl (Ondansetron Hcl 4 Mg/2 Ml Vial) 4 mg IVPUSH Q8H PRN PRN Reason: Nausea and Vomiting Rivaroxaban (Rivaroxaban 20 Mg Tablet) 20 mg PO DAILY@1700 [facility] Last Admin: 06/22/21 17:36 Dose: 20 mg Documented by: ANNIE Sodium Chloride (0.9 % Sodium Chloride Flush 3 Ml Syringe) 3 ml IVFLUSH QSHIFT [facility] Last Admin: 06/23/21 07:51 Dose: 3 ml Documented by: KARSON Tamsulosin HCl (Tamsulosin Hcl 0.4 Mg Capsule) 0.4 mg PO DAILY [facility] Last Admin: 06/23/21 07:52 Dose: 0.4 mg Documented by: KARSON Trazodone HCl (Trazodone Hcl 100 Mg Tablet) 100 mg PO BEDTIME [facility] Last Admin: 06/22/21 21:06 Dose: 100 mg Documented by: KERRIE Valsartan (Valsartan 40 Mg Tablet) 40 mg PO DAILY [facility]; Protocol Last Admin: 06/23/21 07:52 Dose: 40 mg Documented by: KARSON Vitamin D (Cholecalciferol (Vitamin D3) 25 Mcg Tablet) 50 mcg PO DAILY [facility] Last Admin: 06/23/21 07:53 Dose: 50 mcg Documented by: KARSON Labs CBC & Chem 7: 06/23/21 06:03 06/23/21 06:03 Labs: Laboratory Results - last 24 hr 06/22/21 06/23/21 06/23/21 14:55 06:03 06:03 MCV 88.9 MCH 28.2 MCHC 31.7 RDW 15.2 Plt Count 233 MPV 9.9 Absolute Nucleated RBC 0.000 Nucleated RBC % (auto) 0.0 Anion Gap 15 Estim Creat Clear Calc 48.5 Estimated GFR 52 Random Glucose 101 Calcium 10.0 B-Natriuretic Peptide Respiratory Panel Clemente See Note Adenovirus (Rapid PCR) Not Detected B.pert (TEM-PCR) Not Detected B.parapertussis DNA PCR Not Detected C. pneumoniae DNA (PCR) Not Detected Coronavirus OC43 (PCR) Not Detected Coronavirus HKU1 (PCR) Not Detected Coronavirus 229E (PCR) Not Detected Coronavirus NL63 (PCR) Not Detected Human Metapneumovir PCR Not Detected Influenza A (RT-PCR) Not Detected Influenza B (RT-PCR) Not Detected M. pneumoniae (PCR) Not Detected Parainfluenza 1 (PCR) Not Detected Parainfluenza 2 (PCR) Not Detected Parainfluenza 3 (PCR) Not Detected Parainfluenza 4 (PCR) Not Detected RSV (PCR) Not Detected Entero/Rhino (PCR) Not Detected SARS-CoV-2 RNA (RT-PCR) Not Detected 06/23/21 06:03 MCV MCH MCHC RDW Plt Count MPV Absolute Nucleated RBC Nucleated RBC % (auto) Anion Gap Estim Creat Clear Calc Estimated GFR Random Glucose Calcium B-Natriuretic Peptide 127 H Respiratory Panel Clemente Adenovirus (Rapid PCR) B.pert (TEM-PCR) B.parapertussis DNA PCR C. pneumoniae DNA (PCR) Coronavirus OC43 (PCR) Coronavirus HKU1 (PCR) Coronavirus 229E (PCR) Coronavirus NL63 (PCR) Human Metapneumovir PCR Influenza A (RT-PCR) Influenza B (RT-PCR) M. pneumoniae (PCR) Parainfluenza 1 (PCR) Parainfluenza 2 (PCR) Parainfluenza 3 (PCR) Parainfluenza 4 (PCR) RSV (PCR) Entero/Rhino (PCR) SARS-CoV-2 RNA (RT-PCR) Microbiology Microbiology Results: Microbiology 06/21/21 18:28 Blood Culture - Preliminary Blood - Venous No growth after 24 hours. 06/21/21 17:13 Blood Culture - Preliminary Blood - Venous No growth after 24 hours. Assessment and Plan (1) Acute on chronic diastolic heart failure: Status: Acute (2) Pneumonia: Status: Acute Assessment and Plan: This is an 86-year-old male with past medical history of CHF and COPD presents the hospital with hypoxia # acute hypoxic respiratory failure, resolved # CHF exacerbation likely 2/2 CHF exacerbation as well as pneumonia Continue IV Lasix Weaned off oxygen strict I&O, daily weight, low-sodium diet Wean oxygen down as tolerated Pending echocardiogram cardiology input appreciated # Pneumonia C x-ray showed atelectasis reported Incentive spirometry Antibiotics of doxycycline and ceftriaxone # COPD does not appear to have any exacerbation DuoNeb # history of DVT venous duplex of right lower extremity that has increased swelling is negative for any acute DVT continue Xarelto # BPH continues tamsulosin # HTN continue valsartan DVT prophylaxis Xarelto Quality Stroke Does the patient have a stroke diagnosis?: No VTE Prior VTE?: Yes VTE Risk Level:: Medical - moderate - high VTE Device Contraindication: Treatment Not Indicated VTE Drug Contraindication: N/A - Med Ordered
[2021-06-23] MEDS: Doxycycline Hyclate 100 MG in 0.9 % Sodium Chloride 250 ML 166.67 MG IV (12:27)
[2021-06-23] MEDS: Rivaroxaban 20 MG TABLET PO (16:44)
[2021-06-23] MEDS: traZODone HCL 100 MG TABLET PO (20:55)
[2021-06-23] MEDS: Nystatin Powder 15 GM BOTTLE 1 APPL TOPICAL (20:56)
[2021-06-24] VITALS (12 sets, daily range): BP systolic 107–144; BP diastolic 55–67; PULSE 65–76; RESP 18–20; TEMP 36.4–36.9; O2SAT 91–100; BMI 34.5
[2021-06-24] MEDS: 0.9 % Sodium Chloride Flush 3 ML SYRINGE IVFLUSH ×4 (00:41→23:48)
[2021-06-24] MEDS: Doxycycline Hyclate 100 MG in 0.9 % Sodium Chloride 250 ML 166.67 MG IV ×3 (00:41→23:48)
[2021-06-24] MEDS: cefTRIAXone sodium 1 GM in 0.9 % Sodium Chloride 50 ML IV (02:22)
[2021-06-24] MEDS: Omeprazole 40 MG CAPSULE.DR PO ×2 (06:24→16:10)
[2021-06-24 07:20] LABS: Anion Gap 14 (12-20); Blood Urea Nitrogen 39 mg/dL (9-16); Calcium 9.6 mg/dL (8.4-10.2); Carbon Dioxide 29 mmol/L (22-29); Chloride 102 mmol/L (96-108); Creatinine Clr Calc Pharmacy 50.3; Estimated Glomerular Filt Rate 54; Glucose Random 91 mg/dL (60-115); Potassium 4.2 mmol/L (3.3-5.1); Sodium 141 mmol/L (135-145)
[2021-06-24] MEDS: Albuterol/Iprat 2.5/0.5MG 3 ML AMPUL.NEB INHALE ×4 (07:36→18:49)
[2021-06-24] MEDS: Fluticasone/Vilanterol 100/25 BLST.W.DEV 1 PUFF INHALE (07:36)
[2021-06-24] MEDS: Cholecalciferol (Vitamin D3) 25 MCG TABLET 50 MCG PO (07:59)
[2021-06-24] MEDS: allopurinoL 300 MG TABLET PO (07:59)
[2021-06-24] MEDS: Furosemide 40 MG TABLET PO (07:59)
[2021-06-24] MEDS: Aspirin 81 MG TAB.CHEW PO (07:59)
[2021-06-24] MEDS: Fenofibrate 160 MG TABLET PO (07:59)
[2021-06-24] MEDS: guaiFENesin LA 600 MG TAB.ER.12H PO ×2 (07:59→21:49)
[2021-06-24] MEDS: Tamsulosin HCL 0.4 MG CAPSULE PO (07:59)
[2021-06-24] MEDS: Gabapentin 400 MG CAPSULE PO ×3 (07:59→21:49)
[2021-06-24] MEDS: Valsartan 40 MG TABLET PO (07:59)
[2021-06-24] MEDS: Escitalopram Oxalate 20 MG TABLET PO (07:59)
[2021-06-24] MEDS: Acetaminophen 325 MG TABLET 650 MG PO ×2 (08:24→18:42)
--- NOTE | 2021-06-24 11:00 | CA_ITS ---
Transthoracic Echocardiogram Patient (Last, First, Middle): Leonidas Linder F Gender: Male Date of : 1935 Age: 86 Procedure Date: 06/24/2021 Procedure Type: Transthoracic Echocardiogram Location: [facility] [place] Height: 172.72 cm Weight: 102.97 kg BSA: 2.16 m2 Heart Rate: bpm BP: 121 / 56 mmHg Dental Coordinator: Referring MD: Sly Guerrero MD Symptoms: CHF Study Quality: Fair ECG Rhythm: Ventriculary paced rhythm Conclusions: - Normal left ventricular cavity size. There is mildly increased left ventricular wall thickness. The left ventricular systolic function is low normal - Cannot rule out wall motion abnormalities even with contrast Use. In particular cannot rule out apical hypokinesis this can be due to RV pacing. - Normal right ventricular cavity size and systolic function. - There is mild dilatation of the ascending aorta. Findings Left Ventricle Normal left ventricular cavity size. There is mildly increased left ventricular wall thickness. The left ventricular systolic function is low normal. The visually estimated ejection fraction is between 50-55%. There is paradoxical septal motion consistent with a right ventricular pacemaker. Diastolic function is indeterminate on the basis of available data. Cannot rule out wall motion abnormalities even with contrast Use. In particular cannot rule out apical hypokinesis this can be due to RV pacing. Right Ventricle Normal right ventricular cavity size and systolic function. Atria The left atrium is mildly dilated. Aortic Valve There is mild calcification of the aortic valve. There is mild thickening of the aortic valve. There is no aortic valve stenosis. There is no aortic valve regurgitation. Pulmonic Valve The pulmonic valve is likely normal. Tricuspid Valve Normal tricuspid valve structure. There is mild tricuspid valve regurgitation. Tricuspid regurgitation envelope is inadequate for calculation of right ventricular systolic pressure. Normal right atrial pressure. Great Vessels There is mild dilatation of the ascending aorta. The visualized portions of the pulmonary artery and branches are normal. Venous The inferior vena cava is normal in size and collapses greater than 50% with inspiration. Pericardium/Pleural There is no evidence of pericardial effusion. Prior Study Comparison No significant change compared to prior study dated: 06/04/2017. Measurements 2D Linear Measurements IVSd: 1.00 0.6-0.9/0.6-1.0 cm LVIDd: 5.52 3.9-5.3/4.2-5.9 cm LVIDd Index: 2.56 2.4-3.2/2.2-3.1 cm/m2 LVIDs: 3.82 2.0-3.6 cm LVPWd: 1.11 0.7-1.1 cm Ao Root: 3.80 2.1-3.5 cm LA Diam: 4.30 2.7-3.8/3.0-4.0 cm LAIDs Index: 1.99 1.5-2.3 cm/m2 LV Mass: 287.04 67-162/88-224 g LV Mass Index: 132.89 43-95/49-115 g/m2 LVOT Diam: 2.10 3.0+(-)1.3 cm 2D Systolic Function EF 4C: 52.90 >55% EF 2C: 32.80 >55% Mitral Valve MV Pk E: 0.81 MV Decel Time: 164.00 E'Lateral: 13.10 E'Medial: 5.77 E/E' Med: 14.00 E/E' Lat: 6.20 PHT: 48.00 MVA PHT: 4.58 Decel Gem: 4.92 Aortic Valve AoV Pk Phil: 1.20 AoV Mn Phil: 0.74 AoV VTI: 0.18 AoV Pk Grad: 6.00 Aov Mn Grad: 3.00 RALF Cont.VTI: 2.44 LVOT LVOT Pk Phil: 0.80 LVOT Mn Phil: 0.49 LVOT VTI: 0.13 LVOT Pk Grad: 3.00 LVOT Mn Grad: 1.00 LVOT Diam: 2.10 LVOT Area: 3.46 Diastolic Function MV Pk E: 0.81 E'Medial: 5.77 E/E' Med: 14.00 E' Laterial: 13.10 E/E' Lat: 6.20 Tricuspid Valve TR Pk Phil: 2.41 TR Pk Grad: 23.00 Great Vessels Aorta Ao Root-2D: 3.80 2.0-3.7 cm Ao Asc: 3.70 2.1-3.4 cm Updated in Other Vendor System with Status of Final Rudy Duran MD electronically signed on 06/24/2021 3:31:01 PM with status of Final
--- NOTE | 2021-06-24 12:47 | P.PNCA_ITS ---
Subjective Subjective Date of Service: 06/24/21 Principal diagnosis: hypoxic resp failure, PPM, CHF eval Interval history: Cardiology follow up to further eval for CHF. Seen at 1100. Today he reports that his breathing is comfortable. He took the O2 off this am and doesn't feel like he needs it. He denies chest pains, heart palpitations, dizziness, PND. He feels sob when laying back but states that is his normal. He usually sleeps in a recliner but keeps the head part up. Echo being completed at this time. Review of Systems Review of Systems as above Physical Exam Vital Signs: Last Vital Signs Temp 97.6 F 06/24/21 03:44 Pulse 72 06/24/21 11:56 Resp 18 06/24/21 11:56 BP 116/56 L 06/24/21 11:56 Pulse Ox 92 06/24/21 11:56 Oxygen Flow Rate 6 06/21/21 16:01 Body Mass Index 34.5 Const General: cooperative, no acute distress, alert and awake Orientation/consciousness: patient oriented x3 Neck Neck: Yes normal visual inspection and Yes no JVD Resp Effort & Inspection: normal respiratory effort, able to speak in complete sentences and not labored Auscultation: clear to auscultation bilaterally, no rales, no rhonchi and no w heezes Cardio Palpation: normal PMI Rate: regular rate Rhythm: regular rhythm Heart sounds: S1 normal heart sound present and S2 normal heart sound present Peripheral pulses: Peripheral pulses 2+ throughout GI Inspection: Yes normal to inspection Neuro General: patient oriented x3 Extrem Other: venous stasis changes to left lower leg General: Yes normal to inspection and No edema Results Labs and Meds Result diagrams: 06/23/21 06:03 06/24/21 06:19 Lab results: Laboratory Results - last 24 hr 06/24/21 06:19 Sodium 141 Potassium 4.2 Chloride 102 Carbon Dioxide 29 Anion Gap 14 BUN 39 H Creatinine 1.27 Estim Creat Clear Calc 50.3 Estimated GFR 54 Random Glucose 91 Calcium 9.6 Progress Note: A&P Assessment and plan (1) Acute on chronic diastolic heart failure: Status: Acute Assessment and Plan: Mild. Admit with hypoxic resp failure. BNP elevated at 276. CT of chest with findings suggestive of edema, infection or inflammation. Prior echo 05/2017 showed EF 50%, diastolic function unable to determine. He was initially treated with IV Lasix and has transitioned back to his usual PO lasix 40mg daily. He reports that his breathing is now comfortable. Sat 92% on RA. BNP yest 127. On exam he has no obvious signs that indicate fluid overload. Echocardiogram completed - result is pendiing. If no significant abnormalities he can be discharged from a cardiology perpsective. If significant echo abnormalities are noted then addendum to made to note. 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 (2) Acute on chronic respiratory failure with hypoxia: Status: Acute Fall Risk Details Current Medications: Current Medications Generic Name Dose Route Start Last Admin Trade Name Freq PRN Reason Stop Dose Admin Acetaminophen 650 mg 06/22/21 02:46 06/24/21 08:24 Acetaminophen 325 Mg Tablet PO 650 mg Q6H PRN Administration Pain, Mild (Pain Scale 1-3) Albuterol/Ipratropium 3 ml 06/22/21 08:00 06/24/21 11:36 Albuterol/Iprat 2.5/0.5mg 3 Ml Ampul.Neb INHALE 3 ml RQ4H WHILE AWAKE MACIEJ Administration Albuterol/Ipratropium 3 ml 06/22/21 07:16 Albuterol/Iprat 2.5/0.5mg 3 Ml Ampul.Neb INHALE RQ4H PRN Shortness of Breath/Wheezing Allopurinol 300 mg 06/22/21 09:00 06/24/21 07:59 Allopurinol 300 Mg Tablet PO 300 mg DAILY MACIEJ Administration Aspirin 81 mg 06/22/21 09:00 06/24/21 07:59 Aspirin 81 Mg Tab.Chew PO 81 mg DAILY MACIEJ Administration Docusate Sodium 100 mg 06/22/21 02:46 Docusate Sodium 100 Mg Capsule PO DAILY PRN Constipation Escitalopram Oxalate 20 mg 06/22/21 09:00 06/24/21 07:59 Escitalopram Oxalate 20 Mg Tablet PO 20 mg DAILY MACIEJ Administration Fenofibrate 160 mg 06/22/21 09:00 06/24/21 07:59 Fenofibrate 160 Mg Tablet PO 160 mg DAILY MACIEJ Administration Fluticasone/Vilanterol 1 puff 06/22/21 09:00 06/24/21 07:36 Fluticasone/Vilanterol 100/25 Blst.W.Dev INHALE 1 puff DAILY MACIEJ Administration Furosemide 40 mg 06/24/21 09:00 06/24/21 07:59 Furosemide 40 Mg Tablet PO 40 mg DAILY MACIEJ Administration Protocol Gabapentin 400 mg 06/22/21 09:00 06/24/21 07:59 Gabapentin 400 Mg Capsule PO 400 mg TID MACIEJ Administration Guaifenesin 600 mg 06/22/21 02:46 06/24/21 07:59 Guaifenesin La 600 Mg Tab.Er.12h PO 600 mg BID MACIEJ Administration Ceftriaxone Sodium 1 gm/ 50 mls @ 100 mls/hr 06/22/21 04:00 06/24/21 02:56 Sodium Chloride IV Infused Q24H MACIEJ Infusion Doxycycline Hyclate 100 mg/ 250 mls @ 166.67 mls/hr 06/22/21 12:00 06/24/21 12:12 Sodium Chloride IV 166.67 mls/hr Q12H MACIEJ Infusion Nystatin 1 appl 06/23/21 11:10 06/24/21 08:22 Nystatin Powder 15 Gm Bottle TOPICAL Not Given BID [facility] Protocol Omeprazole 40 mg 06/22/21 06:30 06/24/21 06:24 Omeprazole 40 Mg Capsule.Dr PO 40 mg BID@0630,1630 MACIEJ Administration Ondansetron HCl 4 mg 06/22/21 02:46 Ondansetron Hcl 4 Mg/2 Ml Vial IVPUSH Q8H PRN Nausea and Vomiting Rivaroxaban 20 mg 06/22/21 17:00 06/23/21 16:44 Rivaroxaban 20 Mg Tablet PO 20 mg DAILY@1700 MACIEJ Administration Sodium Chloride 3 ml 06/22/21 02:46 06/24/21 07:58 0.9 % Sodium Chloride Flush 3 Ml Syringe IVFLUSH 3 ml QSHIFT MACIEJ Administration Tamsulosin HCl 0.4 mg 06/22/21 09:00 06/24/21 07:59 Tamsulosin Hcl 0.4 Mg Capsule PO 0.4 mg DAILY MACIEJ Administration Trazodone HCl 100 mg 06/22/21 02:46 06/23/21 20:55 Trazodone Hcl 100 Mg Tablet PO 100 mg BEDTIME MACIEJ Administration Valsartan 40 mg 06/22/21 09:00 06/24/21 07:59 Valsartan 40 Mg Tablet PO 40 mg DAILY MACIEJ Administration Protocol Vitamin D 50 mcg 06/22/21 09:00 06/24/21 07:59 Cholecalciferol (Vitamin D3) 25 Mcg Tablet PO 50 mcg DAILY MACIEJ Administration Time Spent With Patient Time: Total time spent is greater than 50% in coordination of care (as documented) at patient's floor/unit and/or counseling patient: Time with patient: 15 - 24 minutes Progress Note: Quality Stroke Does the patient have a stroke diagnosis?: No Procedures Date of Service Date of Service: 06/24/21
[2021-06-24] MEDS: Rivaroxaban 20 MG TABLET PO (16:10)
--- NOTE | 2021-06-24 16:28 | HO.PM.IMPN ---
Subjective Subjective Date of Service: 06/24/21 Interval History: The patient was seen and evaluated this morning Sitting in his chair, feels better overall Shortness of breath improving Still feeling dyspneic upon minimal exertion No reported other overnight events. Systemic review: No fever, chills or weakness No chest pain, palpitation Shortness of breath and episodes of cough No abdominal pain, nausea or vomiting No urinary symptoms Erythema bilateral lower extremities Physical Exam Vital Signs: Vital Signs: Last Vital Signs Temp 97.8 F 06/24/21 14:57 Pulse 75 06/24/21 16:20 Resp 20 06/24/21 14:57 BP 107/55 L 06/24/21 14:57 Pulse Ox 97 06/24/21 14:57 Oxygen Flow Rate 6 06/21/21 16:01 Body Mass Index 34.5 Const: Other: Constitutional : Alert, oriented Neck : Normal inspection, Supple Cardiovascular : RRR, S1 S2, trace bilateral lower extremity edema Respiratory : Fair bilateral air entry, basal fine crackles, wheezes or rhonchi Gastrointestinal: soft, lax, Normal bowel sounds, Non tender Skin : Warm, Dry, bilateral lower extremity chronic stasis dermatitis with mild erythema and warmth. Neurological : Alert & oriented x3, No focal deficit Objective Data Active Medications Acetaminophen (Acetaminophen 325 Mg Tablet) 650 mg PO Q6H PRN PRN Reason: Pain, Mild (Pain Scale 1-3) Last Admin: 06/24/21 08:24 Dose: 650 mg Documented by: LYNSEY Albuterol/Ipratropium (Albuterol/Iprat 2.5/0.5mg 3 Ml Ampul.Neb) 3 ml INHALE RQ4H WHILE AWAKE [facility] Last Admin: 06/24/21 16:19 Dose: 3 ml Documented by: LINETTE Albuterol/Ipratropium (Albuterol/Iprat 2.5/0.5mg 3 Ml Ampul.Neb) 3 ml INHALE RQ4H PRN PRN Reason: Shortness of Breath/Wheezing Allopurinol (Allopurinol 300 Mg Tablet) 300 mg PO DAILY [facility] Last Admin: 06/24/21 07:59 Dose: 300 mg Documented by: LYNSEY Aspirin (Aspirin 81 Mg Tab.Chew) 81 mg PO DAILY [facility] Last Admin: 06/24/21 07:59 Dose: 81 mg Documented by: LYNSEY Docusate Sodium (Docusate Sodium 100 Mg Capsule) 100 mg PO DAILY PRN PRN Reason: Constipation Escitalopram Oxalate (Escitalopram Oxalate 20 Mg Tablet) 20 mg PO DAILY [facility] Last Admin: 06/24/21 07:59 Dose: 20 mg Documented by: LYNSEY Fenofibrate (Fenofibrate 160 Mg Tablet) 160 mg PO DAILY [facility] Last Admin: 06/24/21 07:59 Dose: 160 mg Documented by: LYNSEY Fluticasone/Vilanterol (Fluticasone/Vilanterol 100/25 Blst.W.Dev) 1 puff INHALE DAILY [facility] Last Admin: 06/24/21 07:36 Dose: 1 puff Documented by: LINETTE Furosemide (Furosemide 40 Mg Tablet) 40 mg PO DAILY [facility]; Protocol Last Admin: 06/24/21 07:59 Dose: 40 mg Documented by: LYNSEY Gabapentin (Gabapentin 400 Mg Capsule) 400 mg PO TID [facility] Last Admin: 06/24/21 16:10 Dose: 400 mg Documented by: LYNSEY Guaifenesin (Guaifenesin La 600 Mg Tab.Er.12h) 600 mg PO BID [facility] Last Admin: 06/24/21 07:59 Dose: 600 mg Documented by: LYNSEY Ceftriaxone Sodium 1 gm/ (Sodium Chloride) 50 mls @ 100 mls/hr IV Q24H [facility] Last Infusion: 06/24/21 02:56 Dose: 0 mls/hr Documented by: FABIANO Doxycycline Hyclate 100 mg/ (Sodium Chloride) 250 mls @ 166.67 mls/hr IV Q12H [facility] Last Infusion: 06/24/21 15:03 Dose: 0 mls/hr Documented by: LYNSEY Nystatin (Nystatin Powder 15 Gm Bottle) 1 appl TOPICAL BID [facility]; Protocol Last Admin: 06/24/21 08:22 Dose: Not Given Documented by: LYNSEY Non-Admin Reason: Med Not Available Omeprazole (Omeprazole 40 Mg Capsule.) 40 mg PO BID@0630,1630 [facility] Last Admin: 06/24/21 16:10 Dose: 40 mg Documented by: LYNSEY Ondansetron HCl (Ondansetron Hcl 4 Mg/2 Ml Vial) 4 mg IVPUSH Q8H PRN PRN Reason: Nausea and Vomiting Rivaroxaban (Rivaroxaban 20 Mg Tablet) 20 mg PO DAILY@1700 [facility] Last Admin: 06/24/21 16:10 Dose: 20 mg Documented by: LYNSEY Sodium Chloride (0.9 % Sodium Chloride Flush 3 Ml Syringe) 3 ml IVFLUSH QSHIFT [facility] Last Admin: 06/24/21 16:17 Dose: 3 ml Documented by: LYNSEY Tamsulosin HCl (Tamsulosin Hcl 0.4 Mg Capsule) 0.4 mg PO DAILY [facility] Last Admin: 06/24/21 07:59 Dose: 0.4 mg Documented by: LYNSEY Trazodone HCl (Trazodone Hcl 100 Mg Tablet) 100 mg PO BEDTIME [facility] Last Admin: 06/23/21 20:55 Dose: 100 mg Documented by: KRISTAN Valsartan (Valsartan 40 Mg Tablet) 40 mg PO DAILY [facility]; Protocol Last Admin: 06/24/21 07:59 Dose: 40 mg Documented by: LYNSEY Vitamin D (Cholecalciferol (Vitamin D3) 25 Mcg Tablet) 50 mcg PO DAILY [facility] Last Admin: 06/24/21 07:59 Dose: 50 mcg Documented by: LYNSEY Labs CBC & Chem 7: 06/23/21 06:03 06/24/21 06:19 Labs: Laboratory Results - last 24 hr 06/24/21 06:19 Anion Gap 14 Estim Creat Clear Calc 50.3 Estimated GFR 54 Random Glucose 91 Calcium 9.6 Microbiology Microbiology Results: Microbiology 06/21/21 18:28 Blood Culture - Preliminary Blood - Venous No growth after 48 hours. 06/21/21 17:13 Blood Culture - Preliminary Blood - Venous No growth after 48 hours. Assessment and Plan (1) Acute on chronic diastolic heart failure: Status: Acute (2) Acute respiratory failure with hypoxia: Status: Acute Assessment and Plan: This is an 86-year-old male with past medical history of CHF and COPD presents the hospital with hypoxia # acute hypoxic respiratory failure, resolved # CHF exacerbation likely 2/2 CHF exacerbation as well as pneumonia Change Lasix to p.o. Wean off oxygen strict I&O, daily weight, low-sodium diet Echo showed AF within normal, could not rule out wall motion abnormalities in hypokinesia due to pacing cardiology input appreciated # Pneumonia x-ray showed atelectasis reported Incentive spirometry Antibiotics of doxycycline and ceftriaxone Negative blood cultures # COPD does not appear to have any exacerbation DuoNeb # history of DVT venous duplex of right lower extremity that has increased swelling is negative for any acute DVT continue Xarelto # BPH continues tamsulosin # HTN continue valsartan DVT prophylaxis Xarelto Quality Stroke Does the patient have a stroke diagnosis?: No VTE Prior VTE?: Yes VTE Risk Level:: Medical - moderate - high VTE Device Contraindication: Treatment Not Indicated VTE Drug Contraindication: N/A - Med Ordered
[2021-06-24] MEDS: traZODone HCL 100 MG TABLET PO (21:49)
[2021-06-24] MEDS: Nystatin Powder 15 GM BOTTLE 1 APPL TOPICAL (21:55)
[2021-06-25 03:29] VITALS: BP 138/65; PULSE 70; RESP 18; TEMP 36.9; O2SAT 91
[2021-06-25] MEDS: cefTRIAXone sodium 1 GM in 0.9 % Sodium Chloride 50 ML IV (03:41)
[2021-06-25 03:52] VITALS: O2SAT 95
[2021-06-25 05:45] VITALS: BMI 35.0
[2021-06-25] MEDS: Omeprazole 40 MG CAPSULE.DR PO (06:12)
[2021-06-25] MEDS: Albuterol/Iprat 2.5/0.5MG 3 ML AMPUL.NEB INHALE ×2 (07:32→11:36)
[2021-06-25 07:34] VITALS: BP 165/76; PULSE 75; RESP 18; TEMP 36; O2SAT 100
[2021-06-25] MEDS: Fluticasone/Vilanterol 100/25 BLST.W.DEV 1 PUFF INHALE (08:01)
--- NOTE | 2021-06-25 09:15 | MHC.CM.PN ---
CM met with Patient at bedside to discuss PT's recommendation for STR. Patient has been to [facility] AND THAT IS HIS FIRST CHOICE; HE IS ALSO AGREEABLE TO REFERRALS TO [facility]. cm WILL FOLLOW FOR DC PLANNING.
[2021-06-25 09:44] VITALS: BP 165/76; PULSE 75
[2021-06-25] MEDS: Escitalopram Oxalate 20 MG TABLET PO (09:44)
[2021-06-25] MEDS: 0.9 % Sodium Chloride Flush 3 ML SYRINGE IVFLUSH (09:44)
[2021-06-25] MEDS: Gabapentin 400 MG CAPSULE PO (09:44)
[2021-06-25] MEDS: Valsartan 40 MG TABLET PO (09:44)
[2021-06-25] MEDS: Fenofibrate 160 MG TABLET PO (09:44)
[2021-06-25] MEDS: allopurinoL 300 MG TABLET PO (09:45)
[2021-06-25] MEDS: Cholecalciferol (Vitamin D3) 25 MCG TABLET 50 MCG PO (09:45)
[2021-06-25] MEDS: Nystatin Powder 15 GM BOTTLE 1 APPL TOPICAL (09:45)
[2021-06-25] MEDS: Aspirin 81 MG TAB.CHEW PO (09:45)
[2021-06-25] MEDS: Tamsulosin HCL 0.4 MG CAPSULE PO (09:45)
[2021-06-25] MEDS: Furosemide 40 MG TABLET PO (09:45)
[2021-06-25] MEDS: guaiFENesin LA 600 MG TAB.ER.12H PO (09:45)
[2021-06-25] MEDS: Acetaminophen 325 MG TABLET 650 MG PO (09:47)
[2021-06-25 11:30] VITALS: BP 165/76; PULSE 75
--- NOTE | 2021-06-25 11:30 | MHC.CM.PN ---
Patient has been medically cleared for dc to SNF/STR today. Patient will dc to [facility] today at 3PM, via [facility]. Last IMM addressed on 06/23/21.Per Patient's request, CM has left a detailed message for Daughter/Anila @ [phone], informing her of the dc plan. Patient is aware of and in agreement with the dc plan.
[2021-06-25 12:00] VITALS: BP 119/64; PULSE 117; RESP 20; TEMP 36.8; O2SAT 93
--- NOTE | 2021-06-25 12:04 | PM.DS ---
DS: Providers Provider Date of Service: 06/25/21 Date of admission: 06/21/21 22:01 Primary care physician: Unknown Physician Consults: 06/22/21 02:46 Consult to Cardiology Routine Consulting Provider: Demetrio Becker Reason for consultation: chf Has provider been notified: No DS: Diagnosis Discharge Diagnosis (1) Acute on chronic diastolic heart failure: Status: Acute (2) Acute respiratory failure with hypoxia: Status: Acute (3) CHF exacerbation: Status: Acute (4) Pneumonia: Status: Acute DS: Summary Hospital Course Hospital Course: Admission note HPI This is an 86-year-old male who comes in from assisted living with complaints of hypoxia.? Patient has a past medical history of COPD, CHF, HTN, history of DVT/PE? on? Jodi, who presents to the hospital after being found hypoxic at skilled facility.? Patient reports that he is being treated for pneumonia for the past 2 days due to his coughing, shortness of breath but developed hypoxia and therefore sent to the hospital.? Patient denies any chest pain, reports lower extremity edema worse on the right leg but that is chronic.? Patient reports that he sleeps in and recliner and therefore unable to tell me if he has any orthopnea or PND.? Denies any abdominal pain nausea or vomiting, no diarrhea constipation, no urinary symptoms.? All other review of system negativ. On arrival to the ED patient found to have hypoxia with an O2 level in the mid to high 80s although not documented Labs on arrival significant for WBC count of 5.2, hemoglobin of 11.1, PT of 48.8, creatinine of 1.28 which is his baseline, CRP of 7.4 and BNP of 276. Chest CT shows patchy area bilateral ground-glass opacity.? This is nonspecific.? Could represent infectious or inflammatory process including viral COVID pneumonia.? Alveolar pulmonary edema and pulmonary hemorrhage could also be a possibility Hospital course Admitted for evaluation of difficulty breathing and shortness of breath found to be hypoxic in the emergency likely as a result of CHF exacerbation with elevated BNP an x-ray suggestive of fluid overload treated with IV Lasix. Echo was done showed EF within normal, could not rule out wall motion abnormalities in hypokinesia due to pacing. Cardiology follow the patient during the hospital stay and recommended to be discharged on Lasix. X-ray also was noted for atelectasis which was treated as pneumonia with IV antibiotics. Negative blood cultures. Encourage incentive spirometry and to be discharged on doxycycline and Ceftin to finish total of 1 week of antibiotics. Time Spent with Patient Time attestation: Total time spent providing and/or coordinating discharge services: Discharge coordination time: Greater than 30 minutes Quality: Stroke Does the patient have a stroke diagnosis?: No Physical Exam Vital Signs: Vital Signs: Last Vital Signs Temp 96.8 F 06/25/21 07:34 Pulse 75 06/25/21 11:30 Resp 18 06/25/21 07:34 BP 165/76 H 06/25/21 11:30 Pulse Ox 100 06/25/21 07:34 Oxygen Flow Rate 6 06/21/21 16:01 Body Mass Index 35.0 Const: Other: Constitutional : Alert, oriented Neck : Normal inspection, Supple Cardiovascular : RRR, S1 S2, trace bilateral lower extremity edema Respiratory : Fair bilateral air entry, improvedbasal fine crackles, wheezes or rhonchi Gastrointestinal: soft, lax, Normal bowel sounds, Non tender Skin : Warm, Dry, bilateral lower extremity chronic stasis dermatitis, no tenderness or drainage. Neurological : Alert & oriented x3, No focal deficit DS: Data Data Completed and Pending Labs on day of discharge: Preliminary micro results at discharge 06/21/21 18:28 Blood Culture - Preliminary Blood - Venous No growth after 48 hours. 06/21/21 17:13 Blood Culture - Preliminary Blood - Venous No growth after 48 hours. Discharge Plan Discharge Patient Disposition: [facility] Discharge Diagnosis: CHF exacerbation Pneumonia Referrals: Sh[facility] Schum[facility] [place] [Outside] - 1 Week Physician,Unknown [Primary Care Provider] - 1 Week Discharge Medications: New nystatin 100,000 unit/gram Powder 1 appl topical BID 14 Days RF: 0 doxycycline monohydrate 100 mg capsule 100 mg PO BID Qty: 6 RF: 0 cefuroxime axetil 250 mg tablet 250 mg PO Q12H Qty: 6 RF: 0 Continued omeprazole 40 mg capsule,delayed release(DR/EC) 1 cap PO BID RF: 0 tamsulosin 0.4 mg capsule 1 cap PO DAILY RF: 0 trazodone 100 mg tablet 1 tab PO BEDTIME RF: 0 gabapentin 300 mg capsule 1 cap PO TID RF: 0 allopurinol 300 mg tablet 1 tab PO DAILY RF: 0 furosemide 20 mg tablet 2 tab PO DAILY RF: 0 gabapentin 100 mg capsule 1 cap PO TID RF: 0 escitalopram oxalate 20 mg tablet 1 tab PO DAILY RF: 0 valsartan 40 mg tablet 1 tab PO DAILY RF: 0 fenofibrate 160 mg tablet 1 tab PO DAILY RF: 0 Xarelto 20 mg tablet 1 tab PO DAILY RF: 0 Breo Ellipta 100-25 mcg/dose blister with device 1 puff inhalation DAILY RF: 0 aspirin 81 mg Tablet 81 mg PO DAILY RF: 0 cholecalciferol (vitamin D3) [Vitamin D3] 50 mcg (2,000 unit) Capsule 50 mcg PO DAILY RF: 0 guaifenesin [Mucinex] 600 mg Tablet Extended Release 12hr 600 mg PO BID RF: 0 Salonpas 3.1-10-6 % Adhesive Patch,Medicated 1 patch TOPICAL DAILY RF: 0 Discontinued azithromycin 250 mg tablet 1 tab PO DIRECTED RF: 0 Discharge Orders: Discharge Order (Routine); Ordered 06/25/21 Ordered By: Adri Mai Diet: advance to usual diet Activity on Discharge: As tolerated Stand Alone Forms: Patient Portal Discharge page Care Plan Goals: Read below Health Concerns: Read below Plan of Treatment: You were admitted to the hospital for evaluation of difficulty breathing. Found to be in acute heart failure exacerbation with evidence of pneumonia. Treated with IV antibiotics and IV Lasix with fair response over the course of hospital stay as she were weaned off the oxygen. Assessment: Continue doxycycline and Ceftin for 3 more days Continue Lasix 40 mg daily Monitor your weight and report any changes to your PCP
[2021-06-25 12:17] LABS: COVID-19 Test Negative (Negative)
[2021-06-25] MEDS: Doxycycline Hyclate 100 MG in 0.9 % Sodium Chloride 250 ML 166.67 MG IV (12:29)
--- NOTE | 2021-06-25 12:36 | PC.NURSE ---
Skin assessment completed today. Patient has fungal rash in bilateral groin greater on right than left. Interdry placed in groin area to wick away moisture and heal. no other skin issues noted at this time.
--- NOTE | 2021-06-25 14:39 | PC.NURSE ---
Pt IV infiltrated while receiving IV Doxy prior to d/c . This RN notified Dr. Mai for PO dose as pt refuses another IV to finish IV abx. Awaiting response from
== END 2021-06-25 15:45 | disposition skilled nursing facility (03) | DRG 291 ==
LOC: HO.ED 19:11 → HO.EDOVER 22:34 → HO.IMC 06-22 19:35
PROVIDERS: Nurse Practitioner Family; Admitting Provider Internal Medicine; Emergency Provider Emergency Medicine Emergency Medical Services; Visit Provider Student in an Organized Health Care Education/Training Program
DX: I11.0 Hypertensive heart disease with heart failure (principal); J18.9 Pneumonia, unspecified organism; J96.01 Acute respiratory failure with hypoxia; J44.0 Chronic obstructive pulmonary disease with (acute) lower respiratory infection; J44.1 Chronic obstructive pulmonary disease with (acute) exacerbation; M10.9 Gout, unspecified; I50.33 Acute on chronic diastolic (congestive) heart failure; H54.8 Legal blindness, as defined in USA; Z86.718 Personal history of other venous thrombosis and embolism; N40.0 Benign prostatic hyperplasia without lower urinary tract symptoms; Z20.822 Contact with and (suspected) exposure to COVID-19; Z88.0 Allergy status to penicillin; Z87.891 Personal history of nicotine dependence; Z88.2 Allergy status to sulfonamides; Z79.82 Long term (current) use of aspirin; Z79.01 Long term (current) use of anticoagulants; Z79.899 Other long term (current) drug therapy
CPT/HCPCS: 0241U; 36415; 71250; 80048; 81001; 82728; 83605; 83615; 83735; 83880; 84145; 84484; 85025; 85027; 85652; 85730; 86140; 87040; 87633; 87635; 93005; 93306; 93971; 96374; 96375; 97110; 97116; 97162; 99285; 99291; J0456; J0692; J0696; J1100; J1940; Q9957

== ENCOUNTER 2021-07-13 07:40 | Emergency (ER) | payer MEDICARE, SELFPAY ==
--- NOTE | ~2021-07-13 | CT_ITS ---
CT head/brain wo con, CT cervical spine wo con CLINICAL INFORMATION: Reason for Exam fall COMPARISON: No prior CT scan available for comparison. TECHNIQUE: Department standard protocol. This CT examination was performed using dose optimization techniques as appropriate, variously including the following: *Automated exposure control *Adjustment of mA and/or kV according to patient size (this includes techniques or standardized protocols for targeted exams where dose is matched to indication/reason for exam; i.e. extremities or head) *Use of iterative reconstruction technique DLP: 1621 mGy-cm FINDINGS: CEREBRAL HEMISPHERES: There is no evidence of intra-axial or extra-axial mass, hemorrhage or acute infarct. BRAIN PARENCHYMA: Normal fisher-white matter differentiation. SUBDURAL SPACE: No bleed. BASAL GANGLIA AND PINEAL GLAND: Unremarkable VENTRICLES: Symmetric and normal in size. CEREBELLUM AND BRAINSTEM: No space-occupying mass, hemorrhage or acute infarct. CEREBELLOPONTINE ANGLES: No lesion found. ORBITS: No intraorbital mass. VESSELS: Unremarkable SKULL BASE: Unremarkable INCLUDED SINUSES AT SKULL BASE: Clear SKULL AND SKIN: No fracture or bone lesion found. EXAMINATION: CT CERVICAL SPINE CLINICAL INFORMATION: Fall COMPARISON: No prior CT available, TECHNIQUE: Computed axial sagittal and coronal images acquired using department's standard protocol. This CT examination was performed using dose optimization techniques as appropriate, variously including the following: *Automated exposure control *Adjustment of mA and/or kV according to patient size (this includes techniques or standardized protocols for targeted exams where dose is matched to indication/reason for exam; i.e. extremities or head) *Use of iterative reconstruction technique CONTRAST: None DLP: 1621 mGy-cm FINDINGS: SKULL BASE: Visualized structures at skull base are normal, Included facial sinuses are clear, CERVICAL VERTEBRAE: Seven cervical vertebrae identified maintaining proper height and alignment, DISCS: Narrowing of disc spaces and developed osteophytes especially anteriorly suggest underlying degenerative disc disease. This is seen at all levels. C1-C2: There is no CT evidence of significant osseous narrowing of the central canal or neural foramen. C2-C3: There is no CT evidence of significant osseous narrowing of the central canal or neural foramen. C3-C4: Degenerative disc disease, no fracture. No central or foraminal stenosis. C4-C5: No fracture. Extensive degenerative disc disease of the facet joints and osteophyte from the endplates combined cause narrowing of the neural foramen bilaterally. C5-C6: No fracture. No significant osseous a stenosis of central canal or neural foramen. C6-C7: No fracture. No significant osseous a stenosis of central canal or neural foramen. C7-T1: No fracture. PARAVERTEBRAL SOFT TISSUE: Paravertebral soft tissues unremarkable. CT/CT cervical spine wo con IMPRESSION: No evidence of acute fracture. Underlying severe degenerative disc disease at all level with developed anterior osteophytes. Extensive facet joints arthropathy at multiple levels combined with osteophytes protruding from the endplate causes stenosis of the neural foramen bilaterally as described above. If patient has neurological symptoms consider correlation with follow-up MRI.
--- NOTE | ~2021-07-13 | XR_ITS ---
EXAMINATION: XR SHOULDER , RIGHT CLINICAL INFORMATION: Fall COMPARISON: None available at the time of this dictation. TECHNIQUE: AP external rotation, Grashey, scapular Y, and axillary views of the shoulder. FINDINGS: BONES: Mild heterogeneous bone mineralization of the right humerus could be bone mineralization, cannot rule out lytic process. JOINTS: Glenohumeral joint is properly positioned. There is mild degenerative osteoarthritis of the acromioclavicular joint. SOFT TISSUE AND INCLUDED LUNG: Normal. XR/XR shoulder RT min 2V IMPRESSION: No acute fracture. Radiolucencies in the right humeral neck, although could be bone demineralization, cannot rule out lytic process. Please correlate with patient history, if bone metastasis is suspected consider correlation with bone scan or MRI with contrast. Underlying DJD of AC joint.
--- NOTE | ~2021-07-13 | XR_ITS ---
EXAMINATION: XR CHEST CLINICAL INFORMATION: Chest pain status post fall. COMPARISON: 05/18/2019 chest radiographs. TECHNIQUE: Frontal view of the chest was obtained. FINDINGS: Low lung volumes limit evaluation. There is mild prominence of the pulmonary vascular and cardiac silhouette. The mediastinal structures are unremarkable. Moderate atherosclerosis is seen in the aortic arch. A left-sided dual-lead pacemaker appears in good position. Show lucencies associated with the posterior aspect of the right sixth and seventh ribs. XR/XR chest 1V IMPRESSION: 1. Lucency is overlying the posterior aspect of the right sixth and seventh ribs are nonspecific. This appears projectional however fractures cannot be completely excluded. If suspicion is high for acute fracture in the region regions, dedicated right rib radiographs are recommended. 2. Mild prominence of the pulmonary vasculature and cardiac silhouette is similar to the previous study and may be baseline for the patient. Mild congestion cannot be excluded.
--- NOTE | ~2021-07-13 | XR_ITS ---
EXAMINATION: XR PELVIS CLINICAL INFORMATION: Fall COMPARISON: CT scan from January 2018 TECHNIQUE: 2 views right hip and AP pelvis. views of the pelvis obtained. FINDINGS: There is an old fracture of the right femoral head, dysmorphic changes of the right femur and adjacent acetabulum, this is chronic. No radiographic evidence of acute fracture. There are degenerative changes of the symphysis pubis, mild DJD left hip. Pelvic bones are intact. XR/XR hip RT min 2V IMPRESSION: No acute fracture. An old fracture right femoral head and dysmorphic changes of the right hip acetabulum and femur chronic. Underlying mild DJD.
--- NOTE | 2021-07-13 07:44 | ED_ITS ---
HPI - Fall General Chief Complaint: Fall Stated Complaint: fall, pain all over Time Seen by Provider: 07/13/21 07:44 Source: patient, EMS and old records reviewed Mode of arrival: EMS Limitations: no limitations History of Present Illness MD complaint: fall Onset (ago): hour(s) (6am) Fall from: standing Fall witnessed: no Place fall occurred: long term[facility] Loss of consciousness: none Prolonged down time: yes and hour(s) (1.5 to 2 hours) Symptoms prior to fall: none Context: tripped/slipped (blankets got twisted and he fell) Location of injury: head and pelvis Location of injury - extremities: right: shoulder Severity: mild Quality: dull and aching Associated symptoms (after fall): other (superficial bilateral skin tears to both forearms, contusion to forehead, slight pain to R shoulder and R hip area) Related Data Home Medications Medication Instructions Recorded Confirmed allopurinol 300 mg tablet 1 tab PO DAILY 06/21/21 06/21/21 aspirin 81 mg tablet 81 mg PO DAILY 06/21/21 06/21/21 camphor 3.1 %-methyl salicylate 10 1 patch TOPICAL DAILY 06/21/21 06/21/21 %-menthol 6 % topical patch (Salonpas) cholecalciferol (vitamin D3) 50 50 mcg PO DAILY 06/21/21 06/21/21 mcg (2,000 unit) capsule (Vitamin D3) escitalopram oxalate 20 mg tablet 1 tab PO DAILY 06/21/21 06/21/21 fenofibrate 160 mg tablet 1 tab PO DAILY 06/21/21 06/21/21 fluticasone furoate 100 1 puff INHALATION DAILY 06/21/21 06/21/21 mcg-vilanterol 25 mcg/dose inhalation powder (Breo Ellipta) furosemide 20 mg tablet 2 tab PO DAILY 06/21/21 06/21/21 gabapentin 100 mg capsule 1 cap PO TID 06/21/21 06/21/21 gabapentin 300 mg capsule 1 cap PO TID 06/21/21 06/21/21 guaifenesin 600 mg tablet, 600 mg PO BID 06/21/21 06/21/21 extended release 12 hr (Mucinex) omeprazole 40 mg capsule,delayed 1 cap PO BID 06/21/21 06/21/21 release rivaroxaban 20 mg tablet (Xarelto) 1 tab PO DAILY 06/21/21 06/21/21 tamsulosin 0.4 mg capsule 1 cap PO DAILY 06/21/21 06/21/21 trazodone 100 mg tablet 1 tab PO BEDTIME 06/21/21 06/21/21 valsartan 40 mg tablet 1 tab PO DAILY 06/21/21 06/21/21 Previous Rx's Medication Instructions Recorded cefuroxime axetil 250 mg tablet 250 mg PO Q12H #6 tab 06/25/21 doxycycline monohydrate 100 mg 100 mg PO BID #6 cap 06/25/21 capsule nystatin 100,000 unit/gram topical 1 appl TOPICAL BID 14 Days g 06/25/21 powder Allergies Allergy/AdvReac Type Severity Reaction Status Date / Time levofloxacin [LEVOFLOXACIN] Allergy Severe HYPOTENSION Verified 06/24/21 00:47 Penicillins [PCN] Allergy Severe DIFFICULTY Verified 06/24/21 00:47 BREATHING,RASH penicillin V Allergy Unknown sob/rash Verified 06/24/21 00:47 quinine [QUININE] Allergy Unknown UNKNOWN, ? Verified 06/24/21 00:47 Sulfa (Sulfonamide Allergy Unknown UNSURE Verified 06/24/21 00:47 Antibiotics) [SULFA(SULFONAMIDE ANTIBIOTICS)] morphine [MORPHINE] AdvReac Intermediate HYPOTENSION Verified 06/24/21 00:47 MUSCLE RELAXERS Allergy Severe RASH/IMMOBI Uncoded 06/28/20 14:48 LITY Review of Systems Review of Systems: Constitutional : No Fever, No Chills ENT/Mouth : No Ear Pain, No Hoarseness, No sore throat Eyes: No Eye Pain, No Swelling, No Redness, No Foreign Body Cardiovascular : No Chest Pain, No SOB Respiratory : No Cough, No Dyspnea Gastrointestinal : No Nausea, No Vomiting, No Diarrhea, No abdominal Pain Genitourinary : No Dysuria, No Hematuria Musculoskeletal : positive joint pain, No Myalgias, No Joint Swelling Skin : No Skin lacerations, No rash, pos skin abrasions Neuro : No Weakness, No Numbness, No Loss of Consciousness, No Dizziness, No Headache Psych : No Anxiety/Panic, No Depression Heme/Lymph: no easy bruising, no Lymphadenopathy Endocrine : No Polyuria, No Polydipsia All other systems reviewed and are negative PMFSH Past Medical History Attestation statement: The following information was validated with the patient. Medical History BPH (benign prostatic hyperplasia) CHF (congestive heart failure) COPD (chronic obstructive pulmonary disease) DVT (deep venous thrombosis) Gout History of pulmonary embolism Social History Social History Household Members: None Housing: Assisted Living Facility Do you presently have visiting nurse or other home services: Yes Alcohol intake: unknown Patient Tobacco Use Status: Former Tobacco user Advance Directives Date on File: 07/13/21 Current occupational status: retired Physical Exam Vital Signs: Vital Signs: Last Vital Signs Temp 98.4 F 07/13/21 13:28 Pulse 65 07/13/21 13:28 Resp 16 07/13/21 13:28 BP 131/62 07/13/21 13:28 Pulse Ox 94 07/13/21 13:28 Body Mass Index 42.5 Appearance: Alert. Oriented X3. No acute distress. Eyes: Pupils equal, round and reactive to light. ENT: Pharynx normal. Contusion to forehead and L scalp area Neck: Normal inspection. Neck supple. CVS: Normal heart rate and rhythm. Pulses normal. Respiratory: No respiratory distress. Breath sounds normal. Abdomen: Soft and nontender. Skin: Skin warm and dry. Normal skin color. superficial skin tears small x 2 R forearm, L 3cm superficial skin tear Extremities: chronic bilateral 1 to 2+ pitting edema L > R - chronic venous stasis changes, ttp in R shoulder but good ROM, R hip some mild ttp with ROM Neuro: Oriented X 3. No motor deficit. No sensory deficit. Course Course Course Narrative: discussed with patient the R shoulder concerns - he states at this stage of the game he isn't going to undergo further workup 97% on RA after neb treatment overall feels well will ambulate to ensure safe DC clinically no chest wall pain or rib pain to suggest acute fracture MDM - Fall MDM Narrative Medical decision making narrative: 86 yo male with hx of DVT, HTN, CHF here with mechanical fall - no LOC but did strike head and he is on OAC, GCS 15 currently at this time will need CT head/neck for trauma, R hip and R shoulder xrays, wounds were covered and cleaned with nonstick dressings, basic labs given he was on the floor x 1.5 hours - february need PT/CM given BRENT and falls Lab Data Result diagrams: 07/13/21 08:45 07/13/21 08:45 Labs: Lab Results 07/13/21 07/13/21 07/13/21 Range/Units 08:45 08:45 09:01 WBC 5.8 (4.8-10.8) X10*3/uL RBC 3.83 L (4.60-5.80) X10*6/uL Hgb 10.6 L (14.0-18.0) g/dl Hct 33.4 L (42-52) % MCV 87.2 (80-98) fL MCH 27.7 (27.0-33.0) pg MCHC 31.7 (31.0-36.0) g/dl RDW 15.7 (11.0-16.0) % Plt Count 264 (160-400) X10*3/uL MPV 9.6 (9.4-12.4) fL Immature Gran % (Auto) 0.7 H (0.0-0.4) % Neut % (Auto) 74.1 H (45-73) % Lymph % (Auto) 10.2 L (20-40) % Sandoval % (Auto) 13.0 H (2-11) % Eos % (Auto) 1.7 (0-4) % Baso % (Auto) 0.3 (0-2) % Lymph # (Auto) 0.6 L (1.2-4.9) X10*3/uL [place]oval # (Auto) 0.8 (0.1-1.2) X10*3/uL Eos # (Auto) 0.1 (0.0-0.4) X10*3/uL Baso # (Auto) 0.0 (0.0-0.2) X10*3/uL Abs Immat Gran (auto) 0.04 H (0.00-0.03) X10*3/uL Absolute Neuts (auto) 4.3 (2.0-8.3) X10*3/uL Absolute Nucleated RBC 0.000 (0.0-0.012) X10*3/uL Nucleated RBC % (auto) 0.0 (0.0-0.2) /100WBC Sodium 141 (135-145) mmol/L Potassium 4.7 (3.3-5.1) mmol/L Chloride 106 (96-108) mmol/L Carbon Dioxide 24 (22-29) mmol/L Anion Gap 16 (12-20) BUN 25 H (9-16) mg/dL Creatinine 1.16 (0.5-1.4) mg/dL Estim Creat Clear Calc 61.5 Estimated GFR 60 Random Glucose 110 (60-115) mg/dL Calcium 9.3 (8.4-10.2) mg/dL Magnesium 1.5 L (1.6-2.6) mg/dL Total Bilirubin 0.6 (0.0-1.0) mg/dL Direct Bilirubin 0.3 (0.0-0.5) mg/dL AST 25 (5-37) U/L ALT 11 (0-40) U/L Alkaline Phosphatase 53 (39-117) U/L Total Creatine Kinase 70 (38-174) U/L Total Protein 6.2 L (6.5-8.0) g/dL Albumin 3.7 (3.5-5.0) g/dL Urine Color YELLOW Urine Appearance CLEAR Urine pH 5.5 (5.0-8.0) Ur Specific [place] 1.025 (1.005-1.025) Urine Protein TRACE (NEG-TRACE) MG/DL Urine Glucose (UA) NEG (NEG) MG/DL Urine Ketones NEG (NEG) MG/DL Urine Blood 3+ H (NEG) Urine Nitrite NEG (NEG) Ur Leukocyte Esterase NEG (NEG) Urine RBC 30-49 H (0) /HPF Urine WBC 1-4 (0-4) /HPF Ur Squamous Epith Cells TRACE /LPF Amorphous Sediment TRACE /LPF Urine Bacteria TRACE /LPF Discharge Plan Discharge Clinical Impression: Skin tear of upper extremity Fall Qualifiers: Encounter type: initial encounter Qualified Code(s): W19.XXXA - Unspecified fall, initial encounter Contusion of head Qualifiers: Encounter type: initial encounter Contusion of head detail: unspecified part of head Qualified Code(s): S00.93XA - Contusion of unspecified part of head, initial encounter Patient Disposition: Home, Self-Care Instructions: Contusion in Adults (ED), Skin Avulsion (ED), Fall Prevention (ED), Hematoma (ED) Additional Instructions: return to ED for any worsening symptoms or concerns R shoulder: No acute fracture. ? Radiolucencies in the right humeral neck, although could be bone demineralization, cannot rule out lytic process. Please correlate with patient history, if bone metastasis is suspected consider correlation with bone scan or MRI with contrast. ? Underlying DJD of AC joint. 1. Lucency is overlying the posterior aspect of the right sixth and seventh ribs are nonspecific. This appears projectional however fractures cannot be completely excluded. If suspicion is high for acute fracture in the region regions, dedicated right rib radiographs are recommended. 2. Mild prominence of the pulmonary vasculature and cardiac silhouette is similar to the previous study and may be baseline for the patient. Mild congestion cannot be excluded. CLINICALLY NOT CONSISTENT WITH RIB FRACTURES Prescriptions: No Action omeprazole 40 mg capsule,delayed release(DR/EC) 1 cap PO BID RF: 0 tamsulosin 0.4 mg capsule 1 cap PO DAILY RF: 0 trazodone 100 mg tablet 1 tab PO BEDTIME RF: 0 gabapentin 300 mg capsule 1 cap PO TID RF: 0 allopurinol 300 mg tablet 1 tab PO DAILY RF: 0 furosemide 20 mg tablet 2 tab PO DAILY RF: 0 gabapentin 100 mg capsule 1 cap PO TID RF: 0 escitalopram oxalate 20 mg tablet 1 tab PO DAILY RF: 0 valsartan 40 mg tablet 1 tab PO DAILY RF: 0 fenofibrate 160 mg tablet 1 tab PO DAILY RF: 0 Xarelto 20 mg tablet 1 tab PO DAILY RF: 0 Breo Ellipta 100-25 mcg/dose blister with device 1 puff inhalation DAILY RF: 0 aspirin 81 mg Tablet 81 mg PO DAILY RF: 0 cholecalciferol (vitamin D3) [Vitamin D3] 50 mcg (2,000 unit) Capsule 50 mcg PO DAILY RF: 0 guaifenesin [Mucinex] 600 mg Tablet Extended Release 12hr 600 mg PO BID RF: 0 Salonpas 3.1-10-6 % Adhesive Patch,Medicated 1 patch TOPICAL DAILY RF: 0 nystatin 100,000 unit/gram Powder 1 appl topical BID 14 Days RF: 0 doxycycline monohydrate 100 mg capsule 100 mg PO BID Qty: 6 RF: 0 cefuroxime axetil 250 mg tablet 250 mg PO Q12H Qty: 6 RF: 0 Referrals: Brea Guevara MD [Primary Care Provider] - 5 days (follow up shoulder xray ) Interventions: ED Discharge Assessment Last Done: 07/13/21 13:51 Discharge Date/Time: 07/13/21 14:09
[2021-07-13 07:57] VITALS: BMI 42.5
[2021-07-13 08:03] VITALS: BP 120/57; PULSE 72; RESP 17; TEMP 36.9; O2SAT 94
[2021-07-13 08:51] LABS: MANUAL DIFF FLAG NO
[2021-07-13 08:59] LABS: Basophils Percent Auto 0.3 % (0-2); Eosinophils Absolute Auto 0.1 X10*3/uL (0.0-0.4); Eosinophils Percent Auto 1.7 % (0-4); Hematocrit 33.4 % (42-52); Hemoglobin 10.6 g/dl (14.0-18.0); Imm Gran Abs Auto 0.04 X10*3/uL (0.00-0.03); Imm Gran Pct Auto 0.7 % (0.0-0.4); Lymphocytes Absolute Auto 0.6 X10*3/uL (1.2-4.9); Lymphocytes Percent Auto 10.2 % (20-40); Mean Corpuscular HGB Conc 31.7 g/dl (31.0-36.0); Mean Corpuscular Hemoglobin 27.7 pg (27.0-33.0); Mean Corpuscular Volume 87.2 fL (80-98); Mean Platelet Volume 9.6 fL (9.4-12.4); Monocytes Absolute Auto 0.8 X10*3/uL (0.1-1.2); Neutrophils Absolute Auto 4.3 X10*3/uL (2.0-8.3); Neutrophils Percent Auto 74.1 % (45-73); Platelet Count 264 X10*3/uL (160-400); Red Blood Count 3.83 X10*6/uL (4.60-5.80); Red Cell Distribution Width 15.7 % (11.0-16.0); White Blood Count 5.8 X10*3/uL (4.8-10.8)
[2021-07-13 09:17] LABS: Alanine Aminotransferase 11 U/L (0-40); Albumin Level 3.7 g/dL (3.5-5.0); Alkaline Phosphatase 53 U/L (39-117); Anion Gap 16 (12-20); Aspartate Amino Transferase 25 U/L (5-37); Bilirubin Direct 0.3 mg/dL (0.0-0.5); Bilirubin Total 0.6 mg/dL (0.0-1.0); Blood Urea Nitrogen 25 mg/dL (9-16); Calcium 9.3 mg/dL (8.4-10.2); Carbon Dioxide 24 mmol/L (22-29); Chloride 106 mmol/L (96-108); Creatinine Clr Calc Pharmacy 61.5; Estimated Glomerular Filt Rate 60; Glucose Random 110 mg/dL (60-115); Magnesium 1.5 mg/dL (1.6-2.6); Potassium 4.7 mmol/L (3.3-5.1); Sodium 141 mmol/L (135-145); Total Protein 6.2 g/dL (6.5-8.0)
[2021-07-13 09:19] LABS: Appearance Urine CLEAR; Color Urine YELLOW; Glucose Urine UA NEG (NEG); Leukocyte Esterase Urine NEG (NEG); Nitrite Urine NEG (NEG); PH 5.5 (5.0-8.0); Specific Gravity - Urine 1.025 (1.005-1.025); UACC Culture Trigger NO; Urine Blood 3+ (NEG); Urine Ketones NEG (NEG); Urine Protein TRACE MG/DL (NEG-TRACE)
[2021-07-13 09:27] LABS: UACC CULT YES
[2021-07-13 09:28] LABS: RBC Urine 30-49 /HPF (0); Squamous Epithelial Cell Urine TRACE /LPF
[2021-07-13] MEDS: Magnesium Oxide 400 MG TABLET PO (09:28)
[2021-07-13 09:29] LABS: Amorphous Sediment Urine TRACE /LPF; Bacteria Urine TRACE /LPF
[2021-07-13] MEDS: Albuterol Sulfate (0.083%) 2.5 MG/3 ML VIAL.NEB INHALE (09:36)
[2021-07-13 09:37] VITALS: PULSE 70; O2SAT 18
[2021-07-13 13:28] VITALS: BP 131/62; PULSE 65; RESP 16; TEMP 36.9; O2SAT 94
--- NOTE | 2021-07-13 13:50 | PC.NURSE ---
EMS is here for transport. Pt cleared and to go back to his assisted living.
== END 2021-07-13 14:09 | disposition home or self-care (01) ==
PROVIDERS: Emergency Provider Emergency Medicine; PCP Internal Medicine
DX: S00.93XA Contusion of unspecified part of head, initial encounter (principal); S00.90XA Unspecified superficial injury of unspecified part of head, initial encounter; S00.83XA Contusion of other part of head, initial encounter; G44.309 Post-traumatic headache, unspecified, not intractable; R40.2410 Glasgow coma scale score 13-15, unspecified time; R06.02 Shortness of breath; M25.511 Pain in right shoulder; M25.551 Pain in right hip; W01.10XA Fall on same level from slipping, tripping and stumbling with subsequent striking against unspecified object, initial encounter; Y93.9 Activity, unspecified; Y92.129 Unspecified place in nursing home as the place of occurrence of the external cause; Y99.9 Unspecified external cause status; Z86.718 Personal history of other venous thrombosis and embolism; Z79.01 Long term (current) use of anticoagulants; Z87.891 Personal history of nicotine dependence; Z79.899 Other long term (current) drug therapy
CPT/HCPCS: 36415; 70450; 71045; 72125; 73030; 73502; 80048; 80076; 81001; 82550; 83735; 85025; 87086; 94640; 99284

== ENCOUNTER 2021-07-13 15:42 | Inpatient (IN) | payer MEDICARE, SELFPAY ==
--- NOTE | ~2021-07-13 | CT_ITS ---
EXAMINATION: CT ANGIOGRAM CHEST WITH AND WITHOUT CONTRAST (CT PULMONARY ANGIOGRAM FOR PE) CLINICAL INFORMATION: Shortness of breath. COMPARISON: Chest radiograph done earlier the same day. CT chest dated 06/21/2021. TECHNIQUE: Prior to contrast administration, noncontrast localization images were obtained. Subsequently, multidetector volumetric imaging was performed from the thoracic inlet to below the diaphragms following the administration of 71 mL Omnipaque 350 intravenous contrast. No contrast reaction reported. Sagittal, coronal, and MIP oblique sagittal reformatted images were obtained on the CT workstation, uploaded to PACS, and reviewed. This CT examination was performed using dose optimization techniques as appropriate, variously including the following: *Automated exposure control. *Adjustment of mA and/or kV according to patient size (this includes techniques or standardized protocols for targeted exams where dose is matched to indication/reason for exam; i.e. extremities or head). *Use of iterative reconstruction technique. Total exam dose-length product 621 mGy-cm. FINDINGS: QUALITY OF STUDY/CONTRAST BOLUS: Satisfactory. PULMONARY ARTERIES: No large central or segmental pulmonary embolism. Evaluation somewhat limited secondary to respiratory motion. THORACIC AORTA: No thoracic aortic dilatation or dissection. Scattered atherosclerotic calcifications. LUNG: Evaluation somewhat limited due to respiratory motion. Diffuse bilateral ground-glass airspace opacities have significantly increased when compared to the chest CT dated 06/21/2021. No large pulmonary mass. The central airways are patent. PLEURA: No pleural effusion or pneumothorax. MEDIASTINUM: Cardiomegaly is unchanged. No pericardial effusion. No mediastinal or hilar lymphadenopathy. No evidence of septal bowing or right heart strain. Redemonstration of a lobulated and heterogeneous thyroid with the left thyroid lobe extending into the superior mediastinum, unchanged. Calcified thyroid nodule, unchanged. CHEST WALL/AXILLA: Left chest wall pacer with its leads in the right heart. No internal mammary or axillary lymphadenopathy. OSSEOUS STRUCTURES: No acute or suspicious osseous abnormality. UPPER ABDOMEN: Unremarkable. No reflux of contrast into the hepatic veins to suggest elevated right heart pressures. CT/CT angio chest PE protocol IMPRESSION: 1. No large central or segmental pulmonary embolism. Evaluation limited due to respiratory motion. 2. Diffuse, patchy bilateral ground-glass airspace opacities, increased when compared to the most recent chest CT. Findings can be seen in the setting of viral pneumonia. 3. Additional chronic findings are unchanged. VTE: Negative.
--- NOTE | ~2021-07-13 | US_ITS ---
EXAMINATION: US VENOUS ULTRASOUND WITH DOPPLER LOWER EXTREMITY, LEFT CLINICAL INFORMATION: Left leg redness, swelling and pain COMPARISON: Previous exam 06/21/2021 TECHNIQUE: Ultrasound of the deep veins is performed from the hip to the calf with compression sonography and color and pulse Doppler assessment. Spectral analysis with color-flow imaging is performed. FINDINGS: There is normal venous compression and respiratory variation and augmented flow. The visualized common femoral vein, superficial femoral vein, profunda femoral vein, popliteal vein, and the posterior tibial vein shows no evidence of DVT. The left peroneal vein is not well visualized. There is no Troy's cyst. US/US venous duplex LE LT IMPRESSION: No DVT demonstrated in the left lower extremity. The left peroneal vein in the calf is not well visualized.
--- NOTE | ~2021-07-13 | XR_ITS ---
EXAMINATION: XR CHEST CLINICAL INFORMATION: Shortness of breath. Follow up after diuresis. COMPARISON: Previous chest CTA and chest x-ray 07/13/2021 TECHNIQUE: Frontal view of the chest was obtained. FINDINGS: The cardiac silhouette is enlarged. There is a left labia dual chamber pacemaker that appears unchanged. There is interval improvement in the pulmonary venous redistribution and bilateral airspace disease suggestive of clearing pulmonary edema. There is no significant pleural effusion. There is no pneumothorax. There are degenerative changes of the spine. XR/XR chest 1V IMPRESSION: Enlarged cardiac silhouette. Improved bilateral airspace disease from 07/13/2021. Rapid improvement would favor pulmonary edema over pneumonia.
--- NOTE | 2021-07-13 15:52 | ED_ITS ---
HPI - SOB/Dyspnea General Chief Complaint: Dyspnea Stated Complaint: shortness of breath Time Seen by Provider: 07/13/21 15:51 Source: patient Mode of arrival: EMS Limitations: no limitations History of Present Illness HPI Narrative: Patient 86 years old lives in assisted living place was seen here earlier after mechanical fall sent back to assisted living , staff noticed pulse ox fluctuating meeting 85-95% patient does have diastolic heart failure and COPD, DVT, hypertension and pulmonary embolism on Xarelto recently treated for pneumonia on 06/21 for similar hypoxia at [facility] unable to arran ge for the oxygen hence patient came back. In the ER patient's pulse ox dropped to 85% at room air. Also noticed patient have a low-grade temperature of 100.6 has chronic leg edema and cellulitis patient denies any cough at this time no chest pain or palpitation Related Data Home Medications Medication Instructions Recorded Confirmed allopurinol 300 mg tablet 1 tab PO DAILY 06/21/21 06/21/21 aspirin 81 mg tablet 81 mg PO DAILY 06/21/21 06/21/21 camphor 3.1 %-methyl salicylate 10 1 patch TOPICAL DAILY 06/21/21 06/21/21 %-menthol 6 % topical patch (Salonpas) cholecalciferol (vitamin D3) 50 50 mcg PO DAILY 06/21/21 06/21/21 mcg (2,000 unit) capsule (Vitamin D3) escitalopram oxalate 20 mg tablet 1 tab PO DAILY 06/21/21 06/21/21 fenofibrate 160 mg tablet 1 tab PO DAILY 06/21/21 06/21/21 fluticasone furoate 100 1 puff INHALATION DAILY 06/21/21 06/21/21 mcg-vilanterol 25 mcg/dose inhalation powder (Breo Ellipta) furosemide 20 mg tablet 2 tab PO DAILY 06/21/21 06/21/21 gabapentin 100 mg capsule 1 cap PO TID 06/21/21 06/21/21 gabapentin 300 mg capsule 1 cap PO TID 06/21/21 06/21/21 guaifenesin 600 mg tablet, 600 mg PO BID 06/21/21 06/21/21 extended release 12 hr (Mucinex) omeprazole 40 mg capsule,delayed 1 cap PO BID 06/21/21 06/21/21 release rivaroxaban 20 mg tablet (Xarelto) 1 tab PO DAILY 06/21/21 06/21/21 tamsulosin 0.4 mg capsule 1 cap PO DAILY 06/21/21 06/21/21 trazodone 100 mg tablet 1 tab PO BEDTIME 06/21/21 06/21/21 valsartan 40 mg tablet 1 tab PO DAILY 06/21/21 06/21/21 Previous Rx's Medication Instructions Recorded cefuroxime axetil 250 mg tablet 250 mg PO Q12H #6 tab 06/25/21 doxycycline monohydrate 100 mg 100 mg PO BID #6 cap 06/25/21 capsule nystatin 100,000 unit/gram topical 1 appl TOPICAL BID 14 Days g 06/25/21 powder Allergies Allergy/AdvReac Type Severity Reaction Status Date / Time levofloxacin [LEVOFLOXACIN] Allergy Severe HYPOTENSION Verified 06/24/21 00:47 Penicillins [PCN] Allergy Severe DIFFICULTY Verified 06/24/21 00:47 BREATHING,RASH penicillin V Allergy Unknown sob/rash Verified 06/24/21 00:47 quinine [QUININE] Allergy Unknown UNKNOWN, ? Verified 06/24/21 00:47 Sulfa (Sulfonamide Allergy Unknown UNSURE Verified 06/24/21 00:47 Antibiotics) [SULFA(SULFONAMIDE ANTIBIOTICS)] morphine [MORPHINE] AdvReac Intermediate HYPOTENSION Verified 06/24/21 00:47 MUSCLE RELAXERS Allergy Severe RASH/IMMOBI Uncoded 06/28/20 14:48 LITY Review of Systems Review of Systems: Yes all other systems are reviewed and are negative [facility] Past Medical History Medical History (Updated 07/13/21 @ 20:20 by Kamlesh Villalobos MD) BPH (benign prostatic hyperplasia) CHF (congestive heart failure) COPD (chronic obstructive pulmonary disease) DVT (deep venous thrombosis) Gout History of pulmonary embolism HTN (hypertension) Surgical History (Updated 07/13/21 @ 20:20 by Kamlesh Villalobos MD) Status post placement of cardiac pacemaker Family History Family History (Updated 07/13/21 @ 20:20 by Kamlesh Villalobos MD) Other HTN (hypertension) Heart disease Social History Social History Household Members: None Housing: Assisted Living Facility Do you presently have visiting nurse or other home services: Yes Alcohol intake: never Patient Tobacco Use Status: Former Tobacco user Use of substances other than those prescribed or required for medical reasons: No Advance Directives: No Advance Directives Information Provided: No Advance Directives Date on File: 07/13/21 Current occupational status: retired Physical Exam Vital Signs: Vital Signs: Last Vital Signs Temp 98.4 F 07/13/21 15:53 Pulse 90 07/13/21 19:56 Resp 20 07/13/21 19:56 BP 100/56 L 07/13/21 19:56 Pulse Ox 92 07/13/21 19:56 Oxygen Flow Rate 2 07/13/21 15:53 Body Mass Index 36.5 Appearance: Alert. Oriented X3. No acute distress. Obese Eyes: No pallor or icterus ENT: Pharynx normal. Oral Mucosa moist Neck: Normal inspection. Neck supple. CVS: Normal heart rate and rhythm. Pulses normal. Respiratory: No respiratory distress. Equal air entry bilateral, no wheezing/rales/rhonchi ,decreased air entry bilateral Abdomen: Soft and nontender. Bowel sounds are present, no mass palpable, no CVA tenderness Skin: Skin warm and dry. Bilateral lower extremities erythema and swelling, left more than right Normal skin turgor. Extremities: ++ lower extremity edema. No calf tenderness Neuro: Oriented X 3. No motor deficit. No sensory deficit.No cerebellar signs , cranial nerves II-XII intact MDM - SOB/Dyspnea MDM Narrative Medical decision making narrative: Patient 86 years old with significant hypoxia with history of COPD and diastolic heart failure cellulitis CTA chest done which was negative for PE but showed worsening of the infiltrate bilateral as compared to 06/21/21 patient had low-grade fever no leukocytosis seems to be viral pneumonia had respiratory viral panel done on 06/22 negative 3 times COVID test done which was negative patient already been vaccinated with COVID etiology of viral causing the pneumonia is not clear will repeat the viral pathogen again. Will admit patient for bilateral pneumonia with cellulitis with hypoxia Differential Diagnosis Differential diagnosis: Likely acute exacerbation of chronic obstructive airways disease and congestive heart failure Medical Records Attestation: I reviewed the patient's medical records. Lab Data Attestation: I reviewed the patient's lab results. Labs: Lab Results 07/13/21 07/13/21 07/13/21 Range/Units 17:15 17:18 17:18 PT 15.1 H (9.9-13.0) SEC INR 1.3 H (0.9-1.1) APTT 38.4 H D (24.1-38.0) SEC VBG pH (7.32-7.43) VBG pCO2 mmHg VBG pO2 mmHg VBG HCO3 (22-26) mmol/L VBG O2 Saturation % VBG Base Excess mmol/L Lactic Acid 1.3 (0.5-2.0) mmol/L Magnesium 1.4 L* (1.6-2.6) mg/dL Troponin I High Sens (<3.5-35.0) ng/L B-Natriuretic Peptide (<100) pg/mL 07/13/21 07/13/21 07/13/21 Range/Units 17:18 17:18 20:02 PT (9.9-13.0) SEC INR (0.9-1.1) APTT (24.1-38.0) SEC VBG pH 7.43 (7.32-7.43) VBG pCO2 35 mmHg VBG pO2 55 mmHg VBG HCO3 24 (22-26) mmol/L VBG O2 Saturation 81.0 % VBG Base Excess 0.2 mmol/L Lactic Acid (0.5-2.0) mmol/L Magnesium (1.6-2.6) mg/dL Troponin I High Sens 17.9 D (<3.5-35.0) ng/L B-Natriuretic Peptide 442 H Cancelled (<100) pg/mL Discharge Plan Discharge Clinical Impression: Hypoxia Pneumonia Qualifiers: Pneumonia type: due to unspecified organism Laterality: bilateral Lung location: lower lobe of lung Qualified Code(s): J18.9 - Pneumonia, unspecified organism Cellulitis Qualifiers: Site of cellulitis: extremity Site of cellulitis of extremity: lower extremity Laterality: left Qualified Code(s): L03.116 - Cellulitis of left lower limb Patient Disposition: Admitted As Inpatient
[2021-07-13 15:53] VITALS: BP 142/54; PULSE 75; RESP 18; TEMP 36.9; O2SAT 85; BMI 36.5
--- NOTE | 2021-07-13 16:44 | PC.NURSE ---
pt has temp 100.2 rectal- md aware- plan for more blood work and possible admit. daughter called per pt request and updated on plan of care.
[2021-07-13] MEDS: cefEPime HCl 1 GM in 0.9 % Sodium Chloride 50 ML IV (17:26)
[2021-07-13] MEDS: Acetaminophen 325 MG TABLET 650 MG PO (17:27)
[2021-07-13] MEDS: LORazepam 1 MG TABLET PO (17:27)
[2021-07-13 17:31] LABS: Lactic Acid 1.3 mmol/L (0.5-2.0)
[2021-07-13 17:32] LABS: INTERNATIONAL NORM RATIO 1.3 (0.9-1.1); Prothrombin Time 15.1 SEC (9.9-13.0)
[2021-07-13 17:35] LABS: Partial Thromboplastin Time 38.4 SEC (24.1-38.0)
[2021-07-13 17:41] LABS: Magnesium 1.4 mg/dL (1.6-2.6)
[2021-07-13 17:45] LABS: B Type Natriuretic Peptide 442 pg/mL (<100); Troponin-I High Sensitivity 17.9 ng/L (<3.5-35.0)
[2021-07-13] MEDS: vancomycin HCL 1,500 MG in 0.9 % Sodium Chloride 500 ML 333.33 MG IV (18:14)
[2021-07-13] MEDS: iohexoL 350 MG/ML 100 ML INFUS..BTL IV (18:48)
[2021-07-13 19:56] VITALS: BP 100/56; PULSE 90; RESP 20; O2SAT 92
[2021-07-13 20:05] LABS: Venous Blood Gas Refer to POC result
[2021-07-13 20:07] LABS: VBG Base Excess 0.2 mmol/L; VBG HCO3 24 mmol/L (22-26); VBG pCO2 35 mmHg; VBG pH 7.43 (7.32-7.43); VBG pO2 55 mmHg
--- NOTE | 2021-07-13 20:16 | P.HPHOSP_ITS ---
History of Present Illness Date of Service: 07/13/21 Chief Complaint: hypoxia, sob 86-year-old male from assisted living here with HypOxia.? PMH of stable COPD, chronic diastolic CHF, HTN that is controlled, history VTE anticoagulated with Xarelto. He was recently admitted to the hospital between 06/21 to 06/25 and at time that time treated with for heart failure and pneumonia associated with hypOxia and ultimately discharged back to SNF. A review of CT chest from last admission shows bilateral bilateral patchy infiltrate reminiscent of COVID pneumonia, he is vaccinated and has tested negative during last visit. Patient presented to the ED this morning with mechanical fall and work up was unremarkable and was been discharged back to assisted living facility when he was noted to be hypoxic with O2 of 85 or room and assisted living is not equiped to give him oxygen so work up was rre-initiated for hypoxia. A CT of the chest shows No PE, diffuse, patchy bilateral ground-glass airspace opacities, increased when compared to the most recent chest CT. Findings can be seen in the setting of viral pneumonia . He is afebrile, WBC is not high, covid test not yet done. BNP level is 442 higher than last one, low mag of 1.4 and normal troponin. Given Cefepime and Vancomycin for ? cellulitis of leg vs stasis dermatitis. Patient otherwise feels fine. Review of Systems Review of Systems: Gen: no fever Resp: + sob, no cough CV: no chest, + CAMACHO, +leg edema GI: No n/v, no abd pain Neuro: No confusion Yes all other systems are reviewed and are negative [facility] Medical History (Updated 07/13/21 @ 20:27 by Harjeet Stoll MD) BPH (benign prostatic hyperplasia) CHF (congestive heart failure) COPD (chronic obstructive pulmonary disease) DVT (deep venous thrombosis) Gout History of pulmonary embolism HTN (hypertension) Family History (Updated 07/13/21 @ 20:20 by Kamlesh Villalobos MD) Other HTN (hypertension) Heart disease Pertinent family history: . Surgical History (Updated 07/13/21 @ 20:20 by Kamlesh Villalobos MD) Status post placement of cardiac pacemaker Social History Household Members: None Housing: Assisted Living Facility Do you presently have visiting nurse or other home services: Yes Alcohol intake: never Patient Tobacco Use Status: Former Tobacco user Use of substances other than those prescribed or required for medical reasons: No Advance Directives: No Advance Directives Information Provided: No Advance Directives Date on File: 07/13/21 Current occupational status: retired Meds Allergies Allergy/AdvReac Type Severity Reaction Status Date / Time levofloxacin [LEVOFLOXACIN] Allergy Severe HYPOTENSION Verified 06/24/21 00:47 Penicillins [PCN] Allergy Severe DIFFICULTY Verified 06/24/21 00:47 BREATHING,RASH penicillin V Allergy Unknown sob/rash Verified 06/24/21 00:47 quinine [QUININE] Allergy Unknown UNKNOWN, ? Verified 06/24/21 00:47 Sulfa (Sulfonamide Allergy Unknown UNSURE Verified 06/24/21 00:47 Antibiotics) [SULFA(SULFONAMIDE ANTIBIOTICS)] morphine [MORPHINE] AdvReac Intermediate HYPOTENSION Verified 06/24/21 00:47 MUSCLE RELAXERS Allergy Severe RASH/IMMOBI Uncoded 06/28/20 14:48 LITY Active Medications: Current Medications Magnesium Sulfate (Magnesium Sulfate/H2o) 2 gm in 50 mls @ 100 mls/hr IV ONCE ONE Stop: 07/13/21 20:39 Pharmacy Consult (Consult Rx Vancomycin Dosing) 1 each MISCELLANE DAILY PRN PRN Reason: Consult order Home Medications Medication Instructions Recorded Confirmed Last Taken Type allopurinol 300 mg tablet 1 tab PO DAILY 06/21/21 06/21/21 06/21/21 History aspirin 81 mg tablet 81 mg PO DAILY 06/21/21 06/21/21 06/21/21 History camphor 3.1 %-methyl salicylate 10 1 patch TOPICAL DAILY 06/21/21 06/21/21 06/21/21 History %-menthol 6 % topical patch (Salonpas) cholecalciferol (vitamin D3) 50 50 mcg PO DAILY 06/21/21 06/21/21 06/21/21 History mcg (2,000 unit) capsule (Vitamin D3) escitalopram oxalate 20 mg tablet 1 tab PO DAILY 06/21/21 06/21/21 06/21/21 History fenofibrate 160 mg tablet 1 tab PO DAILY 06/21/21 06/21/21 06/21/21 History fluticasone furoate 100 1 puff INHALATION DAILY 06/21/21 06/21/21 06/21/21 History mcg-vilanterol 25 mcg/dose inhalation powder (Breo Ellipta) furosemide 20 mg tablet 2 tab PO DAILY 06/21/21 06/21/21 06/21/21 History gabapentin 100 mg capsule 1 cap PO TID 06/21/21 06/21/21 06/21/21 History gabapentin 300 mg capsule 1 cap PO TID 06/21/21 06/21/21 06/21/21 History guaifenesin 600 mg tablet, 600 mg PO BID 06/21/21 06/21/21 06/21/21 History extended release 12 hr (Mucinex) omeprazole 40 mg capsule,delayed 1 cap PO BID 06/21/21 06/21/21 06/21/21 History release rivaroxaban 20 mg tablet (Xarelto) 1 tab PO DAILY 06/21/21 06/21/21 06/21/21 History tamsulosin 0.4 mg capsule 1 cap PO DAILY 06/21/21 06/21/21 06/21/21 History trazodone 100 mg tablet 1 tab PO BEDTIME 06/21/21 06/21/21 06/20/21 History valsartan 40 mg tablet 1 tab PO DAILY 06/21/21 06/21/21 06/21/21 History Physical Exam Vital Signs and Narrative: Vital Signs: Last Vital Signs Temp 98.4 F 07/13/21 15:53 Pulse 90 07/13/21 19:56 Resp 20 07/13/21 19:56 BP 100/56 L 07/13/21 19:56 Pulse Ox 92 07/13/21 19:56 Oxygen Flow Rate 2 07/13/21 15:53 Body Mass Index 36.5 Constitutional Awake and Alert, No apparent distress HEENT Neck Supple, No lymphadenopathy Cardiovascular RRR, No M/R/G, S1 S2, No S3 S4, No pedal edema Respiratory Lungs clear, No respiratory distress Gastrointestinal Non tender, Non-distended Skin No rash Neurological Alert & oriented x3 Psychological Appropriate affect Results Labs Labs: Laboratory Results - last 24 hr 07/13/21 07/13/21 07/13/21 17:15 17:18 17:18 PT 15.1 H INR 1.3 H APTT 38.4 H D VBG pH VBG pCO2 VBG pO2 VBG HCO3 VBG O2 Saturation VBG Base Excess Lactic Acid 1.3 Magnesium 1.4 L* Troponin I High Sens B-Natriuretic Peptide 07/13/21 07/13/21 07/13/21 17:18 17:18 20:02 PT INR APTT VBG pH 7.43 VBG pCO2 35 VBG pO2 55 VBG HCO3 24 VBG O2 Saturation 81.0 VBG Base Excess 0.2 Lactic Acid Magnesium Troponin I High Sens 17.9 D B-Natriuretic Peptide 442 H Cancelled Imaging Radiologist's Impressions: Impressions Chest CTA 07/13/21 17:03 IMPRESSION: 1. No large central or segmental pulmonary embolism. Evaluation limited due to respiratory motion. 2. Diffuse, patchy bilateral ground-glass airspace opacities, increased when compared to the most recent chest CT. Findings can be seen in the setting of viral pneumonia. 3. Additional chronic findings are unchanged. VTE: Negative. Assessment and Plan 86-year-old male with COPD, diastolic heart failure, recent hospitalization for pneumonia associated with hypoxia and CHF and here yet again with hypoxia and bilateral infiltrate on the CT scan consistent with a viral pneumonia although superimposed bacterial infection cannot be excluded at this time. He is vaccinated for COVID and had previously tested negative. #Acute hypoxic respiratory failure--likely multifactorial etiology including chronic heart failure, COPD, and pneumonia. -treat underlying issues as detailed below, Oxygen for hypoxia #Pneumonia, possibly viral--afebrile, no leukocytosis-- -rule covid, viral panel -Antibiotics (Cefepime) for possible superimpose bacterial infection (look at CT pretty impressive), received vanco in ED and will not continue #Hypomagnesemia--repleted, repeat level in the morning. #COPD with proably exacerbation--Bronchodilators by Neb, IV corticosteroid, and Oxygen as above #Chronic diastolci CHF with possible mild exacerbation, IV Lasix tonight and resume oral Lasix tomorrow, repeat BNP in am #Chronic venous stasis of the leg, ? cellulitis, Doxycyline #Gout--allopurinol #BPH--continue Flomax # neuropathy continue gabapentin #History of DVT--continue Xarelto DVT prophylaxis--continue Xarelto He should be assess by PT for possible STR before returning to assisted living. Waiting on med rec and covid Quality Stroke Does the patient have a stroke diagnosis?: No VTE Prior VTE?: Yes VTE Risk Level:: Medical - moderate - high VTE Device Contraindication: Treatment Not Indicated VTE Drug Contraindication: N/A - Med Ordered
[2021-07-13] MEDS: Magnesium Sulfate/H2O 2 GM/50 ML PIGGYBACK IV (20:37)
[2021-07-13] MEDS: Furosemide 40 MG/4 ML VIAL 20 MG IVPUSH (20:50)
[2021-07-13 22:10] LABS: Influenza A PCR NEGATIVE (Negative); Influenza B PCR NEGATIVE (Negative); Resp Syncy Virus RNA Qual PCR NEGATIVE (Negative); SARS COV2 PCR INHOUSE NEGATIVE (Negative)
[2021-07-13 22:46] VITALS: BP 115/58; PULSE 75; RESP 25
[2021-07-13] MEDS: methylPREDNISolone Sod Succ 40 MG/ML VIAL 30 MG IVPUSH (23:11)
[2021-07-13 23:23] VITALS: TEMP 38.7
[2021-07-14] VITALS (15 sets, daily range): BP systolic 86–167; BP diastolic 45–83; PULSE 60–120; RESP 18–32; TEMP 36.1–36.9; O2SAT 92–99
--- NOTE | 2021-07-14 | ECG_ITS ---
Test Reason : TACHYCARDIA Blood Pressure : / mmHG Vent. Rate : 117 BPM Atrial Rate : 058 BPM P-R Int : 000 ms QRS Dur : 188 ms QT Int : 436 ms P-R-T Axes : 000 -73 108 degrees QTc Int : 608 ms Ventricular-paced rhythm Abnormal ECG When compared with ECG of 21-JUN-2021 17:05, Vent. rate has increased BY 49 BPM Referred By: Kamlesh Villalobos Electronically Signed By:ALY GARCIA
[2021-07-14] MEDS: Acetaminophen 325 MG TABLET 650 MG PO ×2 (00:11→15:24)
--- NOTE | 2021-07-14 00:15 | PC.NURSE ---
medicated for fever.
--- NOTE | 2021-07-14 01:34 | PM.EVENT ---
Event Note Date of Service: 07/14/21 Event Note: Had an episode of low BP with SBP in 80s. Mental status unchanged, subsequent next 3 reading as follows without intervention has history of heart and therefore cautious with fluid. Given gently LR, ECG to assess tachycardia and repeat lactic acid.
[2021-07-14 01:55] LABS: Lactic Acid 1.1 mmol/L (0.5-2.0)
[2021-07-14] MEDS: cefEPime HCl 2 GM in 0.9 % Sodium Chloride 50 ML IV ×3 (06:26→21:47)
[2021-07-14] MEDS: methylPREDNISolone Sod Succ 40 MG/ML VIAL 30 MG IVPUSH ×3 (06:26→21:48)
[2021-07-14 07:08] LABS: Hematocrit 34.7 % (42-52); Hemoglobin 11.1 g/dl (14.0-18.0); Mean Corpuscular Hemoglobin 28.1 pg (27.0-33.0); Mean Corpuscular Volume 87.8 fL (80-98); Mean Platelet Volume 9.6 fL (9.4-12.4); Platelet Count 274 X10*3/uL (160-400); Red Blood Count 3.95 X10*6/uL (4.60-5.80); Red Cell Distribution Width 15.5 % (11.0-16.0); White Blood Count 5.4 X10*3/uL (4.8-10.8)
[2021-07-14 07:23] LABS: Anion Gap 14 (12-20); Blood Urea Nitrogen 21 mg/dL (9-16); Calcium 9.2 mg/dL (8.4-10.2); Carbon Dioxide 25 mmol/L (22-29); Chloride 105 mmol/L (96-108); Creatinine Clr Calc Pharmacy 67.8; Estimated Glomerular Filt Rate > 60; Glucose Random 156 mg/dL (60-115); Potassium 4.3 mmol/L (3.3-5.1); Sodium 140 mmol/L (135-145)
[2021-07-14 07:28] LABS: B Type Natriuretic Peptide 569 pg/mL (<100)
--- NOTE | 2021-07-14 09:46 | HO.PM.IMPN ---
Subjective Subjective Date of Service: 07/14/21 Interval History: cc: hypoxia very weak, denies sob Cardiovascular Cardiovascular: Reports no additional cardiovascular complaints Respiratory Respiratory: Reports no additional respiratory complaints Physical Exam Vital Signs: Vital Signs: Last Vital Signs Temp 97 F 07/14/21 07:04 Pulse 66 07/14/21 08:07 Resp 20 07/14/21 08:07 BP 160/83 H 07/14/21 08:07 Pulse Ox 94 07/14/21 08:07 Oxygen Flow Rate 2 07/13/21 15:53 Body Mass Index 36.5 General: lethargic O X 3, frail, ill appearing Resp: Crackles bilateral, no accessory muscles used CVS: S1,S2,RRR GI: soft, non tender, non distended Neuro: motor grossly intact, alert Psych: appropriate affect lower extremities: lle mild erythema, warmth, edema, tender, chronic skin changes bilaterally Objective Data Active Medications Acetaminophen (Acetaminophen 325 Mg Tablet) 650 mg PO Q6H PRN PRN Reason: Pain, Mild (Pain Scale 1-3) Last Admin: 07/14/21 00:11 Dose: 650 mg Documented by: KISHAN Albuterol Sulfate (Albuterol Sulfate (0.083%) 2.5 Mg/3 Ml Vial.Neb) 2.5 mg INHALE RQ4H WHILE AWAKE [facility] Last Admin: 07/14/21 08:48 Dose: Not Given Documented by: LINETTE Non-Admin Reason: Patient Asleep Cefepime HCl 2 gm/ Sodium (Chloride) 50 mls @ 100 mls/hr IV Q8H [facility] Last Infusion: 07/14/21 08:12 Dose: 0 mls/hr Documented by: MONICA Doxycycline Hyclate 100 mg/ (Sodium Chloride) 250 mls @ 166.67 mls/hr IV Q12H [facility] Lactated Ringer's (Lr) 1,000 mls @ 75 mls/hr IVCONT .[id number] [facility] Melatonin (Melatonin 3 Mg Tablet) 3 mg PO BEDTIME PRN PRN Reason: Insomnia Methylprednisolone Sodium Succinate (Methylprednisolone Sod Succ 40 Mg/Ml Vial) 30 mg IVPUSH Q8H [facility] Last Admin: 07/14/21 06:26 Dose: 30 mg Documented by: MICHAEL Ondansetron HCl (Ondansetron Hcl 4 Mg/2 Ml Vial) 4 mg IVPUSH Q8H PRN PRN Reason: Nausea and Vomiting Labs CBC & Chem 7: 07/14/21 06:42 07/14/21 06:42 Labs: Laboratory Results - last 24 hr 07/13/21 07/13/21 07/13/21 17:15 17:18 17:18 MCV MCH MCHC RDW Plt Count MPV Absolute Nucleated RBC Nucleated RBC % (auto) PT 15.1 H INR 1.3 H APTT 38.4 H D VBG pH VBG pCO2 VBG pO2 VBG HCO3 VBG O2 Saturation VBG Base Excess Anion Gap Estim Creat Clear Calc Estimated GFR Random Glucose Lactic Acid 1.3 Calcium Magnesium 1.4 L* Troponin I High Sens B-Natriuretic Peptide Coronavirus (PCR) Influenza Type A (PCR) Influenza Type B (PCR) RSV RNA Qual (PCR) 07/13/21 07/13/21 07/13/21 17:18 17:18 19:55 MCV MCH MCHC RDW Plt Count MPV Absolute Nucleated RBC Nucleated RBC % (auto) PT INR APTT VBG pH VBG pCO2 VBG pO2 VBG HCO3 VBG O2 Saturation VBG Base Excess Anion Gap Estim Creat Clear Calc Estimated GFR Random Glucose Lactic Acid Calcium Magnesium Troponin I High Sens 17.9 D B-Natriuretic Peptide 442 H Cancelled Coronavirus (PCR) NEGATIVE Influenza Type A (PCR) NEGATIVE Influenza Type B (PCR) NEGATIVE RSV RNA Qual (PCR) NEGATIVE 07/13/21 07/14/21 07/14/21 20:02 01:28 06:42 MCV 87.8 MCH 28.1 MCHC 32.0 RDW 15.5 Plt Count 274 MPV 9.6 Absolute Nucleated RBC 0.000 Nucleated RBC % (auto) 0.0 PT INR APTT VBG pH 7.43 VBG pCO2 35 VBG pO2 55 VBG HCO3 24 VBG O2 Saturation 81.0 VBG Base Excess 0.2 Anion Gap Estim Creat Clear Calc Estimated GFR Random Glucose Lactic Acid 1.1 Calcium Magnesium Troponin I High Sens B-Natriuretic Peptide Coronavirus (PCR) Influenza Type A (PCR) Influenza Type B (PCR) RSV RNA Qual (PCR) 07/14/21 07/14/21 06:42 06:42 MCV MCH MCHC RDW Plt Count MPV Absolute Nucleated RBC Nucleated RBC % (auto) PT INR APTT VBG pH VBG pCO2 VBG pO2 VBG HCO3 VBG O2 Saturation VBG Base Excess Anion Gap 14 Estim Creat Clear Calc 67.8 Estimated GFR > 60 Random Glucose 156 H D Lactic Acid Calcium 9.2 Magnesium Troponin I High Sens B-Natriuretic Peptide 569 H Coronavirus (PCR) Influenza Type A (PCR) Influenza Type B (PCR) RSV RNA Qual (PCR) Assessment and Plan (1) Sepsis: Status: Acute (2) Hypoxia: Status: Acute (3) Pneumonia: Status: Acute (4) HTN (hypertension): Status: Acute Assessment and Plan: 86M presented with hypoxia complicated by sepsis sepsis (not severe) due to bilateral pneumonia complicated by acute hypoxic respiratory failure follow up cultures continue cefepime, doxy pulm eval follow up viral panel, urine legionella COPD with acute exaceerbation steroids, bronchodilators acute on chronic diastolic chf iv lasix, monitor is and os, bmp LLE swelling ertyhema doubt cellulitis, this was noted on previous admission, duplex was negative likely chronic venous stasis history of DVT/PE cta negative for pe, continue xarelto bph flomax gout allpurinol Quality Stroke Does the patient have a stroke diagnosis?: No VTE Prior VTE?: Yes VTE Risk Level:: Medical - moderate - high VTE Device Contraindication: Treatment Not Indicated VTE Drug Contraindication: N/A - Med Ordered
[2021-07-14] MEDS: Doxycycline Hyclate 100 MG in 0.9 % Sodium Chloride 250 ML 166.67 MG IV ×2 (10:51→19:47)
--- NOTE | 2021-07-14 11:07 | PC.NURSE ---
pt had a large bm (soft) x1.
--- NOTE | 2021-07-14 11:55 | PM.CNPUL ---
History of Present Illness History of Present Illness Consult date: 07/14/21 Requesting physician: Bertram Prince Chief complaint: PNA,heart failure,Hypoxic resp failure Narrative: 86-year-old gentleman with underlying history of COPD, diastolic congestive heart failure, hypertension, anticoagulation for VTE, admitted on 07/13/2021 with slowly progressive dyspnea and hypoxia with significant orthopnea. CT chest upon admission demonstrated bilateral patchy infiltrates. Pulmonary evaluation has been requested. Patient denies productive cough. He has been treated with broad-spectrum antibiotics and diuretic with some improvement in his dyspnea. Review of Systems Constitutional: Constitutional: Denies daytime sleepiness, Denies excessive sweating, Denies fatigue, Denies fever(s), Reports lethargy, Reports malaise, Denies night sweats, Denies snoring and Denies weight loss Eyes: Eyes: Denies blurry vision and Denies itchy eyes ENT: Denies nasal congestion, Denies post nasal drip, Denies sinus pain, Denies sinus pressure and Denies other ( Thrush) Cardiovascular: Cardiovascular: Denies chest pain, Reports pedal edema, Reports dyspnea, Reports orthopnea and Reports paroxysmal nocturnal dyspnea Respiratory: Respiratory: Denies cough, Denies hemoptysis, Denies excessive phlegm production, Reports dyspnea, Denies snoring and Denies wheezing Gastrointestinal: Gastrointestinal: Denies abdominal pain and Denies heartburn Musculoskeletal: Musculoskeletal: Denies myalgias, Denies arthralgias and Denies joint swelling Integumentary/Breasts: Skin/Breast: Reports rash Neurologic: Denies memory loss and Denies seizure-like activity Psychiatric: Psychiatric: Denies abnormal sleep pattern, Denies anxiety and Denies memory loss Endocrine: Endocrine: Denies excessive sweating, Denies fatigue and Denies heat intolerance Hematologic/Lymphatic: Hematologic/Lymphatic: Denies easy bruising Allergic/Immunologic: Allergic/Immunologic: Denies itchy eyes, Denies seasonal rhinorrhea and Denies wheezing PMFSH Past Medical History Medical History (Updated 07/14/21 @ 12:19 by Rudy Trevino MD) BPH (benign prostatic hyperplasia) CHF (congestive heart failure) COPD (chronic obstructive pulmonary disease) DVT (deep venous thrombosis) Gout History of pulmonary embolism HTN (hypertension) Family History Family History (Updated 07/13/21 @ 20:20 by Kamlesh Villalobos MD) Other HTN (hypertension) Heart disease Surgical History Surgical History (Updated 07/13/21 @ 20:20 by Kamlesh Villalobos MD) Status post placement of cardiac pacemaker Social History Social History Household Members: None Housing: Assisted Living Facility Do you presently have visiting nurse or other home services: Yes Alcohol intake: never Patient Tobacco Use Status: Former Tobacco user Use of substances other than those prescribed or required for medical reasons: No Advance Directives: No Advance Directives Information Provided: No Advance Directives Date on File: 07/13/21 Current occupational status: retired Meds Allergies Allergy/AdvReac Type Severity Reaction Status Date / Time levofloxacin [LEVOFLOXACIN] Allergy Severe HYPOTENSION Verified 06/24/21 00:47 Penicillins [PCN] Allergy Severe DIFFICULTY Verified 06/24/21 00:47 BREATHING,RASH penicillin V Allergy Unknown sob/rash Verified 06/24/21 00:47 quinine [QUININE] Allergy Unknown UNKNOWN, ? Verified 06/24/21 00:47 Sulfa (Sulfonamide Allergy Unknown UNSURE Verified 06/24/21 00:47 Antibiotics) [SULFA(SULFONAMIDE ANTIBIOTICS)] morphine [MORPHINE] AdvReac Intermediate HYPOTENSION Verified 06/24/21 00:47 MUSCLE RELAXERS Allergy Severe RASH/IMMOBI Uncoded 06/28/20 14:48 LITY Active Medications: Current Medications Acetaminophen (Acetaminophen 325 Mg Tablet) 650 mg PO Q6H PRN PRN Reason: Pain, Mild (Pain Scale 1-3) Last Admin: 07/14/21 00:11 Dose: 650 mg Documented by: Albuterol Sulfate (Albuterol Sulfate (0.083%) 2.5 Mg/3 Ml Vial.Neb) 2.5 mg INHALE RQ4H WHILE AWAKE [facility] Last Admin: 07/14/21 08:48 Dose: Not Given Documented by: Furosemide (Furosemide 20 Mg/2 Ml Vial) 20 mg IVPUSH BID@0900,1800 [facility]; Protocol Cefepime HCl 2 gm/ Sodium (Chloride) 50 mls @ 100 mls/hr IV Q8H [facility] Last Infusion: 07/14/21 08:12 Dose: Infused Documented by: Doxycycline Hyclate 100 mg/ (Sodium Chloride) 250 mls @ 166.67 mls/hr IV Q12H [facility]IE[facility] Last Admin: 07/14/21 10:51 Dose: 166.67 mls/hr Documented by: Melatonin (Melatonin 3 Mg Tablet) 3 mg PO BEDTIME PRN PRN Reason: Insomnia Methylprednisolone Sodium Succinate (Methylprednisolone Sod Succ 40 Mg/Ml Vial) 30 mg IVPUSH Q8H [facility]IE[facility] Last Admin: 07/14/21 06:26 Dose: 30 mg Documented by: Ondansetron HCl (Ondansetron Hcl 4 Mg/2 Ml Vial) 4 mg IVPUSH Q8H PRN PRN Reason: Nausea and Vomiting Home Medications Medication Instructions Recorded Confirmed Last Taken Type allopurinol 300 mg tablet 1 tab PO DAILY 06/21/21 07/14/21 06/21/21 History escitalopram oxalate 20 mg tablet 1 tab PO DAILY 06/21/21 07/14/21 06/21/21 History fenofibrate 160 mg tablet 1 tab PO DAILY 06/21/21 07/14/21 06/21/21 History fluticasone furoate 100 1 puff INHALATION DAILY 06/21/21 07/14/21 06/21/21 History mcg-vilanterol 25 mcg/dose inhalation powder (Breo Ellipta) furosemide 20 mg tablet 2 tab PO DAILY 06/21/21 07/14/21 06/21/21 History gabapentin 100 mg capsule 1 cap PO TID 06/21/21 07/14/21 06/21/21 History gabapentin 300 mg capsule 1 cap PO TID 06/21/21 07/14/21 06/21/21 History omeprazole 40 mg capsule,delayed 1 cap PO BID 06/21/21 07/14/21 06/21/21 History release rivaroxaban 20 mg tablet (Xarelto) 1 tab PO DAILY 06/21/21 07/14/21 06/21/21 History tamsulosin 0.4 mg capsule 1 cap PO DAILY 06/21/21 07/14/21 06/21/21 History trazodone 100 mg tablet 1 tab PO BEDTIME 06/21/21 07/14/21 06/20/21 History valsartan 40 mg tablet 1 tab PO DAILY 06/21/21 07/14/21 06/21/21 History Physical Exam Vital Signs: Vital Signs: Last Vital Signs Temp 97 F 07/14/21 07:04 Pulse 66 07/14/21 08:07 Resp 20 07/14/21 08:07 BP 160/83 H 07/14/21 08:07 Pulse Ox 94 07/14/21 08:07 Oxygen Flow Rate 2 07/13/21 15:53 Body Mass Index 36.5 Const: General: no acute distress, alert and awake Nutritional Appearance: obese Eyes: Sclerae: sclerae normal EOM: EOMs intact bilaterally Neck: Neck: Yes no lymphadenopathy, Yes trachea midline and Yes supple Resp: Effort & Inspection: normal respiratory effort and no respiratory distress Auscultation: crackles (Bibasilar) Cardio: Rate: regular rate Rhythm: regular rhythm Heart sounds: no gallops, no murmurs and no rubs GI: Palpation (GI): Soft to palpation and Other GI palpation findings present ( Nontender) Auscultation: normal bowel sounds Extrem: General: No clubbing, No cyanosis, Yes pedal edema (1+ left greater than right) and Yes other (Bilateral chronic venous stasis dermatitis) Results Laboratory Findings CBC and BMP: 07/14/21 06:42 07/14/21 06:42 ABG, PT/INR, D-dimer: PT/INR, D-dimer PT 15.1 SEC (9.9-13.0) H 07/13/21 17:18 INR 1.3 (0.9-1.1) H 07/13/21 17:18 Abnormal lab findings: Abnormal Labs 07/13/21 07/13/21 07/13/21 17:18 17:18 17:18 RBC Hgb Hct PT 15.1 H INR 1.3 H APTT 38.4 H D BUN Random Glucose Magnesium 1.4 L* B-Natriuretic Peptide 442 H 07/14/21 07/14/21 07/14/21 06:42 06:42 06:42 RBC 3.95 L Hgb 11.1 L Hct 34.7 L PT INR APTT BUN 21 H Random Glucose 156 H D Magnesium B-Natriuretic Peptide 569 H Assessment and Plan (1) Acute respiratory failure with hypoxia: Status: Acute (2) Diastolic congestive heart failure: Status: Acute (3) COPD (chronic obstructive pulmonary disease): Status: Acute Impression: 86-year-old gentleman admitted with slowly progressive over several months orthopnea, dyspnea, and hypoxia, likely secondary to exacerbation of underlying congestive heart failure. At this time patient does not have clinical symptoms of pneumonia. His CT findings of patchy bilateral peribronchovascular infiltrate can be observed in patients with worsening congestive heart failure. Recommendation: Agree with further diuresis. Procedures Date of Service Date of Service: 07/14/21
[2021-07-14] MEDS: Albuterol Sulfate (0.083%) 2.5 MG/3 ML VIAL.NEB INHALE ×3 (12:02→19:47)
--- NOTE | 2021-07-14 13:07 | PC.NURSE ---
NURSE TO NURSE GIVEN TO MANDY (RN), PT AWARE OF PLAN OF CARE FOR ADMISSION TO HOSP.
--- NOTE | 2021-07-14 14:19 | MHC.CM.PN ---
met with who is from [facility] assisted living.pt reports getting assistance fr meds ,meals, housekeeping and bathing he says he has cre tenders or care givers as well he will need transport when returning he does not want to go to a rehab
[2021-07-14] MEDS: Omeprazole 40 MG CAPSULE.DR PO (15:20)
[2021-07-14] MEDS: Gabapentin 100 MG CAPSULE PO ×2 (15:20→19:47)
[2021-07-14] MEDS: Gabapentin 300 MG CAPSULE PO ×2 (15:20→19:47)
[2021-07-14] MEDS: Furosemide 20 MG/2 ML VIAL IVPUSH (17:00)
[2021-07-14] MEDS: traZODone HCL 100 MG TABLET PO (19:47)
[2021-07-15] VITALS (15 sets, daily range): BP systolic 112–163; BP diastolic 54–89; PULSE 59–89; RESP 18–19; TEMP 36.2–37; O2SAT 91–97
[2021-07-15 06:10] LABS: Hematocrit 34.2 % (42-52); Hemoglobin 10.8 g/dl (14.0-18.0); Mean Corpuscular HGB Conc 31.6 g/dl (31.0-36.0); Mean Corpuscular Hemoglobin 27.7 pg (27.0-33.0); Mean Corpuscular Volume 87.7 fL (80-98); Mean Platelet Volume 9.7 fL (9.4-12.4); Platelet Count 300 X10*3/uL (160-400); Red Cell Distribution Width 15.2 % (11.0-16.0); White Blood Count 5.6 X10*3/uL (4.8-10.8)
[2021-07-15] MEDS: Omeprazole 40 MG CAPSULE.DR PO ×2 (06:11→16:36)
[2021-07-15] MEDS: methylPREDNISolone Sod Succ 40 MG/ML VIAL 30 MG IVPUSH ×2 (06:11→13:59)
[2021-07-15] MEDS: cefEPime HCl 2 GM in 0.9 % Sodium Chloride 50 ML IV ×2 (06:11→14:00)
[2021-07-15 06:30] LABS: Anion Gap 14 (12-20); Blood Urea Nitrogen 24 mg/dL (9-16); Calcium 9.5 mg/dL (8.4-10.2); Carbon Dioxide 27 mmol/L (22-29); Chloride 106 mmol/L (96-108); Creatinine Clr Calc Pharmacy 78.3; Estimated Glomerular Filt Rate > 60; Glucose Fasting 152 mg/dL (60-99); Potassium 4.7 mmol/L (3.3-5.1); Sodium 142 mmol/L (135-145)
[2021-07-15 07:34] LABS: Adenovirus PCR Not Detected (Not Detect.); Bordetella parapertussis PCR Not Detected (Not Detect.); Bordetella pertussis PCR Not Detected (Not Detect.); Chlamydia pneumoniae PCR Not Detected (Not Detect.); Coronavirus 229E PCR Not Detected (Not Detect.); Coronavirus HKU1 PCR Not Detected (Not Detect.); Coronavirus NL63 PCR Not Detected (Not Detect.); Coronavirus OC43 PCR Not Detected (Not Detect.); Human metapneumovirus PCR Not Detected (Not Detect.); Influenza A PCR Not Detected (Not Detect.); Influenza B PCR Not Detected (Not Detect.); Mycoplasma pneumoniae PCR Not Detected (Not Detect.); Parainfluenza 1 PCR Not Detected (Not Detect.); Parainfluenza 2 PCR Not Detected (Not Detect.); Parainfluenza 3 PCR Not Detected (Not Detect.); Parainfluenza 4 PCR Not Detected (Not Detect.); RSV PCR Not Detected (Not Detect.); Rhino/Enterovirus PCR Not Detected (Not Detect.); SARS-CoV-2 PCR Not Detected (Not Detect.)
[2021-07-15] MEDS: Gabapentin 300 MG CAPSULE PO ×3 (07:57→21:34)
[2021-07-15] MEDS: Furosemide 20 MG/2 ML VIAL 40 MG IVPUSH ×2 (07:57→17:21)
[2021-07-15] MEDS: Valsartan 40 MG TABLET PO (07:57)
[2021-07-15] MEDS: Tamsulosin HCL 0.4 MG CAPSULE PO (07:57)
[2021-07-15] MEDS: Fenofibrate 160 MG TABLET PO (07:57)
[2021-07-15] MEDS: Escitalopram Oxalate 20 MG TABLET PO (07:58)
[2021-07-15] MEDS: allopurinoL 300 MG TABLET PO (07:58)
[2021-07-15] MEDS: Gabapentin 100 MG CAPSULE PO ×3 (07:59→21:34)
[2021-07-15] MEDS: Doxycycline Hyclate 100 MG in 0.9 % Sodium Chloride 250 ML 166.67 MG IV ×2 (07:59→21:34)
[2021-07-15] MEDS: Rivaroxaban 20 MG TABLET PO (07:59)
[2021-07-15] MEDS: Albuterol Sulfate (0.083%) 2.5 MG/3 ML VIAL.NEB INHALE ×3 (08:05→15:14)
[2021-07-15] MEDS: Fluticasone/Vilanterol 100/25 BLST.W.DEV 1 PUFF INHALE (08:18)
--- NOTE | 2021-07-15 10:30 | HO.PM.IMPN ---
Subjective Subjective Date of Service: 07/15/21 Interval History: cc: sob, fever reports improved sob, feels weak Cardiovascular Cardiovascular: Reports no additional cardiovascular complaints Respiratory Respiratory: Reports no additional respiratory complaints Physical Exam Vital Signs: Vital Signs: Last Vital Signs Temp 97.4 F 07/15/21 07:43 Pulse 66 07/15/21 10:00 Resp 18 07/15/21 07:43 BP 151/89 H 07/15/21 07:57 Pulse Ox 97 07/15/21 08:00 Oxygen Flow Rate 2 07/15/21 08:00 Body Mass Index 36.5 General: lethargic O X 3, frail, ill appearing Resp:? Crackles bilateral, no accessory muscles used CVS: S1,S2,RRR GI: soft, non tender, non distended Neuro:? motor grossly intact, alert Psych: appropriate affect lower extremities: lle mild erythema, warmth, edema, tender, chronic skin changes bilaterally? Objective Data Active Medications Acetaminophen (Acetaminophen 325 Mg Tablet) 650 mg PO Q6H PRN PRN Reason: Pain, Mild (Pain Scale 1-3) Last Admin: 07/14/21 15:24 Dose: 650 mg Documented by: FLAVIA Albuterol Sulfate (Albuterol Sulfate (0.083%) 2.5 Mg/3 Ml Vial.Neb) 2.5 mg INHALE RQ4H WHILE AWAKE [facility] Last Admin: 07/15/21 08:05 Dose: 2.5 mg Documented by: DILAN Allopurinol (Allopurinol 300 Mg Tablet) 300 mg PO DAILY [facility] Last Admin: 07/15/21 07:58 Dose: 300 mg Documented by: DILAN Escitalopram Oxalate (Escitalopram Oxalate 20 Mg Tablet) 20 mg PO DAILY [facility] Last Admin: 07/15/21 07:58 Dose: 20 mg Documented by: DILAN Fenofibrate (Fenofibrate 160 Mg Tablet) 160 mg PO DAILY [facility] Last Admin: 07/15/21 07:57 Dose: 160 mg Documented by: DILAN Fluticasone/Vilanterol (Fluticasone/Vilanterol 100/25 Blst.W.Dev) 1 puff INHALE DAILY [facility] Last Admin: 07/15/21 08:18 Dose: 1 puff Documented by: ALISHA Furosemide (Furosemide 20 Mg/2 Ml Vial) 40 mg IVPUSH BID@0900,1800 [facility]; Protocol Last Admin: 07/15/21 07:57 Dose: 40 mg Documented by: DILAN Gabapentin (Gabapentin 100 Mg Capsule) 100 mg PO TID [facility] Last Admin: 07/15/21 07:59 Dose: 100 mg Documented by: DILAN Gabapentin (Gabapentin 300 Mg Capsule) 300 mg PO TID [facility] Last Admin: 07/15/21 07:57 Dose: 300 mg Documented by: DILAN Cefepime HCl 2 gm/ Sodium (Chloride) 50 mls @ 100 mls/hr IV Q8H [facility] Last Infusion: 07/15/21 07:59 Dose: 0 mls/hr Documented by: DILAN Doxycycline Hyclate 100 mg/ (Sodium Chloride) 250 mls @ 166.67 mls/hr IV Q12H [facility] Last Infusion: 07/15/21 10:01 Dose: 0 mls/hr Documented by: DILAN Melatonin (Melatonin 3 Mg Tablet) 3 mg PO BEDTIME PRN PRN Reason: Insomnia Methylprednisolone Sodium Succinate (Methylprednisolone Sod Succ 40 Mg/Ml Vial) 30 mg IVPUSH Q8H [facility] Last Admin: 07/15/21 06:11 Dose: 30 mg Documented by: BAILEY Omeprazole (Omeprazole 40 Mg Capsule.) 40 mg PO BID@0630,1630 [facility] Last Admin: 07/15/21 06:11 Dose: 40 mg Documented by: BAILEY Ondansetron HCl (Ondansetron Hcl 4 Mg/2 Ml Vial) 4 mg IVPUSH Q8H PRN PRN Reason: Nausea and Vomiting Rivaroxaban (Rivaroxaban 20 Mg Tablet) 20 mg PO DAILY [facility] Last Admin: 07/15/21 07:59 Dose: 20 mg Documented by: DILAN Tamsulosin HCl (Tamsulosin Hcl 0.4 Mg Capsule) 0.4 mg PO DAILY [facility] Last Admin: 07/15/21 07:57 Dose: 0.4 mg Documented by: DILAN Trazodone HCl (Trazodone Hcl 100 Mg Tablet) 100 mg PO BEDTIME [facility] Last Admin: 07/14/21 19:47 Dose: 100 mg Documented by: BAILEY Valsartan (Valsartan 40 Mg Tablet) 40 mg PO DAILY [facility]; Protocol Last Admin: 07/15/21 07:57 Dose: 40 mg Documented by: DILAN Labs CBC & Chem 7: 07/15/21 05:47 07/15/21 05:47 Labs: Laboratory Results - last 24 hr 07/13/21 07/15/21 07/15/21 12:47 05:47 05:47 MCV 87.7 MCH 27.7 MCHC 31.6 RDW 15.2 Plt Count 300 MPV 9.7 Absolute Nucleated RBC 0.000 Nucleated RBC % (auto) 0.0 Anion Gap 14 Estim Creat Clear Calc 78.3 Estimated GFR > 60 Fasting Glucose 152 H Calcium 9.5 Respiratory Panel Clemente See Note Adenovirus (Rapid PCR) Not Detected B.pert (TEM-PCR) Not Detected B.parapertussis DNA PCR Not Detected C. pneumoniae DNA (PCR) Not Detected Coronavirus OC43 (PCR) Not Detected Coronavirus HKU1 (PCR) Not Detected Coronavirus 229E (PCR) Not Detected Coronavirus NL63 (PCR) Not Detected Human Metapneumovir PCR Not Detected Influenza A (RT-PCR) Not Detected Influenza B (RT-PCR) Not Detected M. pneumoniae (PCR) Not Detected Parainfluenza 1 (PCR) Not Detected Parainfluenza 2 (PCR) Not Detected Parainfluenza 3 (PCR) Not Detected Parainfluenza 4 (PCR) Not Detected RSV (PCR) Not Detected Entero/Rhino (PCR) Not Detected SARS-CoV-2 RNA (RT-PCR) Not Detected Microbiology Microbiology Results: Microbiology 07/13/21 17:19 Blood Culture - Preliminary Blood - Venous No growth after 24 hours. 07/13/21 17:15 Blood Culture - Preliminary Blood - Venous No growth after 24 hours. Assessment and Plan (1) Sepsis: Status: Acute (2) Hypoxia: Status: Acute (3) Pneumonia: Status: Acute (4) HTN (hypertension): Status: Acute Assessment and Plan: 86M presented with hypoxia complicated by sepsis sepsis (not severe) due to bilateral pneumonia complicated by acute hypoxic respiratory failure follow up cultures - negative so far continue cefepime, doxy resp viral panel negative follow up urine legionella COPD with acute exaceerbation steroids, bronchodilators acute on chronic diastolic chf iv lasix - increased to 40mg bid, monitor is and os, bmp LLE swelling ertyhema doubt cellulitis, this was noted on previous admission, duplex was negative likely chronic venous stasis history of DVT/PE cta negative for pe, continue xarelto bph flomax gout allpurinol Quality Stroke Does the patient have a stroke diagnosis?: No VTE Prior VTE?: Yes VTE Risk Level:: Medical - moderate - high VTE Device Contraindication: Treatment Not Indicated VTE Drug Contraindication: N/A - Med Ordered
--- NOTE | 2021-07-15 13:01 | MHC.CM.PN ---
Per ROUNDS discussion, Patient is not yet medically cleared for dc (IV Cefepime, IV Doxycycline, IV Lasix, IV Solu Medrol). Home/return to [facility] and [facility] is the goal and CM will follow for possible need to adjust the dc plan.
[2021-07-15] MEDS: Metoprolol Tartrate 25 MG TABLET PO ×2 (13:19→21:34)
[2021-07-15] MEDS: Magnesium Oxide 400 MG TABLET 800 MG PO (16:36)
[2021-07-15] MEDS: Acetaminophen 325 MG TABLET 650 MG PO (18:06)
[2021-07-15] MEDS: traZODone HCL 100 MG TABLET PO (21:34)
[2021-07-16] VITALS (14 sets, daily range): BP systolic 102–158; BP diastolic 52–85; PULSE 60–67; RESP 18–20; TEMP 35.5–36.8; O2SAT 92–96
[2021-07-16] MEDS: methylPREDNISolone Sod Succ 40 MG/ML VIAL 30 MG IVPUSH ×4 (00:03→22:25)
[2021-07-16] MEDS: cefEPime HCl 2 GM in 0.9 % Sodium Chloride 50 ML IV ×4 (00:03→22:25)
[2021-07-16] MEDS: Omeprazole 40 MG CAPSULE.DR PO ×2 (05:11→15:29)
[2021-07-16 06:55] LABS: Anion Gap 14 (12-20); Blood Urea Nitrogen 32 mg/dL (9-16); Calcium 9.6 mg/dL (8.4-10.2); Carbon Dioxide 28 mmol/L (22-29); Chloride 103 mmol/L (96-108); Creatinine Clr Calc Pharmacy 67.8; Estimated Glomerular Filt Rate > 60; Glucose Fasting 132 mg/dL (60-99); Magnesium 1.9 mg/dL (1.6-2.6); Potassium 4.9 mmol/L (3.3-5.1); Sodium 140 mmol/L (135-145)
[2021-07-16 06:58] LABS: Hematocrit 34.7 % (42-52); Hemoglobin 10.8 g/dl (14.0-18.0); Mean Corpuscular HGB Conc 31.1 g/dl (31.0-36.0); Mean Corpuscular Hemoglobin 27.6 pg (27.0-33.0); Mean Corpuscular Volume 88.5 fL (80-98); Mean Platelet Volume 10.1 fL (9.4-12.4); Platelet Count 326 X10*3/uL (160-400); Red Blood Count 3.92 X10*6/uL (4.60-5.80); Red Cell Distribution Width 15.4 % (11.0-16.0); White Blood Count 7.2 X10*3/uL (4.8-10.8)
[2021-07-16] MEDS: Albuterol Sulfate (0.083%) 2.5 MG/3 ML VIAL.NEB INHALE ×3 (07:43→20:52)
[2021-07-16] MEDS: Fluticasone/Vilanterol 100/25 BLST.W.DEV 1 PUFF INHALE (07:44)
[2021-07-16] MEDS: Doxycycline Hyclate 100 MG in 0.9 % Sodium Chloride 250 ML 166.67 MG IV ×2 (08:06→19:53)
[2021-07-16] MEDS: Gabapentin 300 MG CAPSULE PO ×3 (08:07→19:51)
[2021-07-16] MEDS: Furosemide 20 MG/2 ML VIAL 40 MG IVPUSH ×2 (08:07→17:05)
[2021-07-16] MEDS: Fenofibrate 160 MG TABLET PO (08:07)
[2021-07-16] MEDS: Tamsulosin HCL 0.4 MG CAPSULE PO (08:07)
[2021-07-16] MEDS: Magnesium Oxide 400 MG TABLET 800 MG PO ×2 (08:07→17:05)
[2021-07-16] MEDS: Gabapentin 100 MG CAPSULE PO ×3 (08:07→19:51)
[2021-07-16] MEDS: Rivaroxaban 20 MG TABLET PO (08:08)
[2021-07-16] MEDS: Metoprolol Tartrate 25 MG TABLET PO (08:08)
[2021-07-16] MEDS: Valsartan 40 MG TABLET PO (08:08)
[2021-07-16] MEDS: allopurinoL 300 MG TABLET PO (08:08)
[2021-07-16] MEDS: Escitalopram Oxalate 20 MG TABLET PO (08:08)
--- NOTE | 2021-07-16 09:47 | HO.PM.IMPN ---
Subjective Subjective Date of Service: 07/16/21 Interval History: cc: sob reports overall improvement from admission, but no signifcant improvement in alst 24hours, still with sob even at rest, worse on exertion Cardiovascular Cardiovascular: Reports no additional cardiovascular complaints Genitourinary Genitourinary: Reports no additional male genitourinary complaints Physical Exam Vital Signs: Vital Signs: Last Vital Signs Temp 96 F L 07/16/21 07:10 Pulse 63 07/16/21 08:08 Resp 20 07/16/21 07:10 BP 158/85 H 07/16/21 08:08 Pulse Ox 92 07/16/21 07:10 Oxygen Flow Rate 2 07/15/21 08:00 Body Mass Index 36.5 General: alert O X 3, frail, looks more energetic than yesterday Resp:? Crackles bilateral, no accessory muscles used CVS: S1,S2,RRR GI: soft, non tender, non distended Neuro:? motor grossly intact, alert Psych: appropriate affect lower extremities: lle mild erythema, warmth, edema, tender, chronic skin changes bilaterally? Objective Data Active Medications Acetaminophen (Acetaminophen 325 Mg Tablet) 650 mg PO Q6H PRN PRN Reason: Pain, Mild (Pain Scale 1-3) Last Admin: 07/15/21 18:06 Dose: 650 mg Documented by: VENKATESH Albuterol Sulfate (Albuterol Sulfate (0.083%) 2.5 Mg/3 Ml Vial.Neb) 2.5 mg INHALE RQ4H WHILE AWAKE [facility] Last Admin: 07/16/21 07:43 Dose: 2.5 mg Documented by: NIKOLAI Allopurinol (Allopurinol 300 Mg Tablet) 300 mg PO DAILY [facility] Last Admin: 07/16/21 08:08 Dose: 300 mg Documented by: MELANY Escitalopram Oxalate (Escitalopram Oxalate 20 Mg Tablet) 20 mg PO DAILY [facility] Last Admin: 07/16/21 08:08 Dose: 20 mg Documented by: MELANY Fenofibrate (Fenofibrate 160 Mg Tablet) 160 mg PO DAILY [facility] Last Admin: 07/16/21 08:07 Dose: 160 mg Documented by: MELANY Fluticasone/Vilanterol (Fluticasone/Vilanterol 100/25 Blst.W.Dev) 1 puff INHALE DAILY [facility] Last Admin: 07/16/21 07:44 Dose: 1 puff Documented by: NIKOLAI Furosemide (Furosemide 20 Mg/2 Ml Vial) 40 mg IVPUSH BID@0900,1800 [facility]; Protocol Last Admin: 07/16/21 08:07 Dose: 40 mg Documented by: MELANY Gabapentin (Gabapentin 100 Mg Capsule) 100 mg PO TID [facility] Last Admin: 07/16/21 08:07 Dose: 100 mg Documented by: MELANY Gabapentin (Gabapentin 300 Mg Capsule) 300 mg PO TID [facility] Last Admin: 07/16/21 08:07 Dose: 300 mg Documented by: MELANY Cefepime HCl 2 gm/ Sodium (Chloride) 50 mls @ 100 mls/hr IV Q8H [facility] Last Infusion: 07/16/21 05:46 Dose: 0 mls/hr Documented by: BAILEY Doxycycline Hyclate 100 mg/ (Sodium Chloride) 250 mls @ 166.67 mls/hr IV Q12H [facility] Last Infusion: 07/16/21 09:47 Dose: 0 mls/hr Documented by: MELANY Magnesium Oxide (Magnesium Oxide 400 Mg Tablet) 800 mg PO BIDPC [facility] Last Admin: 07/16/21 08:07 Dose: 800 mg Documented by: MELANY Melatonin (Melatonin 3 Mg Tablet) 3 mg PO BEDTIME PRN PRN Reason: Insomnia Methylprednisolone Sodium Succinate (Methylprednisolone Sod Succ 40 Mg/Ml Vial) 30 mg IVPUSH Q8H [facility] Last Admin: 07/16/21 05:11 Dose: 30 mg Documented by: BAILEY Metoprolol Tartrate (Metoprolol Tartrate 25 Mg Tablet) 25 mg PO BID [facility]; Protocol Last Admin: 07/16/21 08:08 Dose: 25 mg Documented by: MELANY Omeprazole (Omeprazole 40 Mg Capsule.Dr) 40 mg PO BID@0630,1630 [facility] Last Admin: 07/16/21 05:11 Dose: 40 mg Documented by: BAILEY Ondansetron HCl (Ondansetron Hcl 4 Mg/2 Ml Vial) 4 mg IVPUSH Q8H PRN PRN Reason: Nausea and Vomiting Rivaroxaban (Rivaroxaban 20 Mg Tablet) 20 mg PO DAILY [facility] Last Admin: 07/16/21 08:08 Dose: 20 mg Documented by: MELANY Tamsulosin HCl (Tamsulosin Hcl 0.4 Mg Capsule) 0.4 mg PO DAILY [facility] Last Admin: 07/16/21 08:07 Dose: 0.4 mg Documented by: MELANY Trazodone HCl (Trazodone Hcl 100 Mg Tablet) 100 mg PO BEDTIME [facility] Last Admin: 07/15/21 21:34 Dose: 100 mg Documented by: BAILEY Valsartan (Valsartan 40 Mg Tablet) 40 mg PO DAILY [facility]; Protocol Last Admin: 07/16/21 08:08 Dose: 40 mg Documented by: MELANY Labs CBC & Chem 7: 07/16/21 06:18 07/16/21 06:18 Labs: Laboratory Results - last 24 hr 07/16/21 07/16/21 06:18 06:18 MCV 88.5 MCH 27.6 MCHC 31.1 RDW 15.4 Plt Count 326 MPV 10.1 Absolute Nucleated RBC 0.000 Nucleated RBC % (auto) 0.0 Anion Gap 14 Estim Creat Clear Calc 67.8 Estimated GFR > 60 Fasting Glucose 132 H Calcium 9.6 Magnesium 1.9 Microbiology Microbiology Results: Microbiology 07/13/21 17:19 Blood Culture - Preliminary Blood - Venous No growth after 48 hours. 07/13/21 17:15 Blood Culture - Preliminary Blood - Venous No growth after 48 hours. Assessment and Plan (1) Sepsis: Status: Acute (2) Hypoxia: Status: Acute (3) Pneumonia: Status: Acute (4) HTN (hypertension): Status: Acute Assessment and Plan: 86M presented with hypoxia complicated by sepsis sepsis (not severe) due to bilateral pneumonia complicated by acute hypoxic respiratory failure follow up cultures - negative continue cefepime, doxy resp viral panel negative follow up urine legionella COPD with acute exacerbation steroids, bronchodilators acute on chronic diastolic chf iv lasix - 40mg bid, monitor is and os, bmp check repeat CXR ?new onset paroxysmal atrial fibrillation llopressor, already on AC cardio eval LLE swelling ertyhema doubt cellulitis, this was noted on previous admission, duplex was negative although reporting worsening pain, will check repeat duplex history of DVT/PE cta negative for pe, continue xarelto bph flomax gout allpurinol Quality Stroke Does the patient have a stroke diagnosis?: No VTE Prior VTE?: Yes VTE Risk Level:: Medical - moderate - high VTE Device Contraindication: Treatment Not Indicated VTE Drug Contraindication: N/A - Med Ordered
--- NOTE | 2021-07-16 12:52 | PM.CNCAR ---
History of Present Illness History of Present Illness Date of Service: 07/16/21 Requesting physician: Bertram Prince Chief complaint: PNA,heart failure,Hypoxic resp failure Narrative: 86-year-old gentleman with recent admission with pneumonia and heart failure who is presenting with mechanical fall and hypoxia. He has noticed to have bilateral patchy ground-glass changes on CT scan differential of wire pneumonia versus congestive heart failure. BNP was elevated. Was started on cefepime and vancomycin for cellulitis and admitted for further care. He is saying he gets short of breath when he walks. He is denying any breathing issues at rest. No chest discomfort. Blood pressure is elevated. [facility] Past Medical History Medical History BPH (benign prostatic hyperplasia) CHF (congestive heart failure) COPD (chronic obstructive pulmonary disease) DVT (deep venous thrombosis) Gout History of pulmonary embolism HTN (hypertension) Family History Family History (Updated 07/13/21 @ 20:20 by Kamlesh Villalobos MD) Other HTN (hypertension) Heart disease Surgical History Surgical History Status post placement of cardiac pacemaker Social History Social History Household Members: None Housing: Assisted Living Facility Do you presently have visiting nurse or other home services: No ( hired a girl ) Alcohol intake: never Patient Tobacco Use Status: Former Tobacco user Advance Directives Date on File: 07/13/21 service: No Current occupational status: retired Meds Allergies Allergy/AdvReac Type Severity Reaction Status Date / Time levofloxacin [LEVOFLOXACIN] Allergy Severe HYPOTENSION Verified 06/24/21 00:47 Penicillins [PCN] Allergy Severe DIFFICULTY Verified 06/24/21 00:47 BREATHING,RASH penicillin V Allergy Unknown sob/rash Verified 06/24/21 00:47 quinine [QUININE] Allergy Unknown UNKNOWN, ? Verified 06/24/21 00:47 Sulfa (Sulfonamide Allergy Unknown UNSURE Verified 06/24/21 00:47 Antibiotics) [SULFA(SULFONAMIDE ANTIBIOTICS)] morphine [MORPHINE] AdvReac Intermediate HYPOTENSION Verified 06/24/21 00:47 MUSCLE RELAXERS Allergy Severe RASH/IMMOBI Uncoded 09/17/20 14:48 LITY Active Medications: Current Medications Acetaminophen (Acetaminophen 325 Mg Tablet) 650 mg PO Q6H PRN PRN Reason: Pain, Mild (Pain Scale 1-3) Last Admin: 07/15/21 18:06 Dose: 650 mg Documented by: Albuterol Sulfate (Albuterol Sulfate (0.083%) 2.5 Mg/3 Ml Vial.Neb) 2.5 mg INHALE RQ4H WHILE AWAKE [facility] Last Admin: 07/16/21 11:52 Dose: Not Given Documented by: Allopurinol (Allopurinol 300 Mg Tablet) 300 mg PO DAILY [facility] Last Admin: 07/16/21 08:08 Dose: 300 mg Documented by: Escitalopram Oxalate (Escitalopram Oxalate 20 Mg Tablet) 20 mg PO DAILY [facility] Last Admin: 07/16/21 08:08 Dose: 20 mg Documented by: Fenofibrate (Fenofibrate 160 Mg Tablet) 160 mg PO DAILY [facility] Last Admin: 07/16/21 08:07 Dose: 160 mg Documented by: Fluticasone/Vilanterol (Fluticasone/Vilanterol 100/25 Blst.W.Dev) 1 puff INHALE DAILY [facility] Last Admin: 07/16/21 07:44 Dose: 1 puff Documented by: Furosemide (Furosemide 20 Mg/2 Ml Vial) 40 mg IVPUSH BID@0900,1800 [facility]; Protocol Last Admin: 07/16/21 08:07 Dose: 40 mg Documented by: Gabapentin (Gabapentin 100 Mg Capsule) 100 mg PO TID [facility] Last Admin: 07/16/21 08:07 Dose: 100 mg Documented by: Gabapentin (Gabapentin 300 Mg Capsule) 300 mg PO TID [facility] Last Admin: 07/16/21 08:07 Dose: 300 mg Documented by: Cefepime HCl 2 gm/ Sodium (Chloride) 50 mls @ 100 mls/hr IV Q8H [facility] Last Infusion: 07/16/21 05:46 Dose: Infused Documented by: Doxycycline Hyclate 100 mg/ (Sodium Chloride) 250 mls @ 166.67 mls/hr IV Q12H [facility] Last Infusion: 07/16/21 09:47 Dose: Infused Documented by: Isosorbide Mononitrate (Isosorbide Mononitrate 30 Mg Tab.Er.24h) 30 mg PO DAILY [facility]; Protocol Magnesium Oxide (Magnesium Oxide 400 Mg Tablet) 800 mg PO BIDPC [facility] Last Admin: 07/16/21 08:07 Dose: 800 mg Documented by: Melatonin (Melatonin 3 Mg Tablet) 3 mg PO BEDTIME PRN PRN Reason: Insomnia Methylprednisolone Sodium Succinate (Methylprednisolone Sod Succ 40 Mg/Ml Vial) 30 mg IVPUSH Q8H [facility] Last Admin: 07/16/21 05:11 Dose: 30 mg Documented by: Metoprolol Tartrate (Metoprolol Tartrate 25 Mg Tablet) 25 mg PO BID [facility]; Protocol Last Admin: 07/16/21 08:08 Dose: 25 mg Documented by: Omeprazole (Omeprazole 40 Mg Capsule.) 40 mg PO BID@0630,1630 [facility] Last Admin: 07/16/21 05:11 Dose: 40 mg Documented by: Ondansetron HCl (Ondansetron Hcl 4 Mg/2 Ml Vial) 4 mg IVPUSH Q8H PRN PRN Reason: Nausea and Vomiting Rivaroxaban (Rivaroxaban 20 Mg Tablet) 20 mg PO DAILY [facility] Last Admin: 07/16/21 08:08 Dose: 20 mg Documented by: Tamsulosin HCl (Tamsulosin Hcl 0.4 Mg Capsule) 0.4 mg PO DAILY [facility] Last Admin: 07/16/21 08:07 Dose: 0.4 mg Documented by: Trazodone HCl (Trazodone Hcl 100 Mg Tablet) 100 mg PO BEDTIME [facility] Last Admin: 07/15/21 21:34 Dose: 100 mg Documented by: Valsartan (Valsartan 40 Mg Tablet) 40 mg PO DAILY [facility]; Protocol Last Admin: 07/16/21 08:08 Dose: 40 mg Documented by: Home Medications Medication Instructions Recorded Confirmed Last Taken Type allopurinol 300 mg tablet 1 tab PO DAILY 06/21/21 07/14/21 06/21/21 History escitalopram oxalate 20 mg tablet 1 tab PO DAILY 06/21/21 07/14/21 06/21/21 History fenofibrate 160 mg tablet 1 tab PO DAILY 06/21/21 07/14/21 06/21/21 History fluticasone furoate 100 1 puff INHALATION DAILY 06/21/21 07/14/21 06/21/21 History mcg-vilanterol 25 mcg/dose inhalation powder (Breo Ellipta) furosemide 20 mg tablet 2 tab PO DAILY 06/21/21 07/14/21 06/21/21 History gabapentin 100 mg capsule 1 cap PO TID 06/21/21 07/14/21 06/21/21 History gabapentin 300 mg capsule 1 cap PO TID 06/21/21 07/14/21 06/21/21 History omeprazole 40 mg capsule,delayed 1 cap PO BID 06/21/21 07/14/21 06/21/21 History release rivaroxaban 20 mg tablet (Xarelto) 1 tab PO DAILY 06/21/21 07/14/21 06/21/21 History tamsulosin 0.4 mg capsule 1 cap PO DAILY 06/21/21 07/14/21 06/21/21 History trazodone 100 mg tablet 1 tab PO BEDTIME 06/21/21 07/14/21 06/20/21 History valsartan 40 mg tablet 1 tab PO DAILY 06/21/21 07/14/21 06/21/21 History Physical Exam Vital Signs: Vital Signs: Last Vital Signs Temp 96 F L 07/16/21 07:10 Pulse 63 07/16/21 09:55 Resp 20 07/16/21 07:10 BP 158/85 H 07/16/21 09:55 Pulse Ox 92 07/16/21 08:00 Oxygen Flow Rate 2 07/15/21 08:00 Body Mass Index 36.5 GENERAL APPEARANCE: in no acute distress, pleasant. NECK: no carotid bruit, no significant JVD. SKIN: no suspicious lesions, warm and dry. HEART: no murmurs, regular rate and rhythm. LUNGS: clear to auscultation bilaterally. ABDOMEN: soft, nontender. EXTREMITIES: no edema. PERIPHERAL PULSES: equal. NEUROLOGIC: No gross deficits, AAO X 3 Results Labs and Meds Result diagrams: 07/16/21 06:18 07/16/21 06:18 Lab results: Laboratory Results - last 24 hr 07/16/21 07/16/21 06:18 06:18 WBC 7.2 RBC 3.92 L Hgb 10.8 L Hct 34.7 L MCV 88.5 MCH 27.6 MCHC 31.1 RDW 15.4 Plt Count 326 MPV 10.1 Absolute Nucleated RBC 0.000 Nucleated RBC % (auto) 0.0 Sodium 140 Potassium 4.9 Chloride 103 Carbon Dioxide 28 Anion Gap 14 BUN 32 H Creatinine 0.97 Estim Creat Clear Calc 67.8 Estimated GFR > 60 Fasting Glucose 132 H Calcium 9.6 Magnesium 1.9 Imaging Radiologist's impression: Impressions Chest X-Ray 07/16/21 10:30 IMPRESSION: Enlarged cardiac silhouette. Improved bilateral airspace disease from 07/13/2021. Rapid improvement would favor pulmonary edema over pneumonia. Venous Duplex 07/16/21 11:25 IMPRESSION: No DVT demonstrated in the left lower extremity. The left peroneal vein in the calf is not well visualized. Assessment and Plan (1) Diastolic congestive heart failure: Status: Acute (2) HTN (hypertension): Status: Acute Pleasant 86-year-old gentleman who was recently discharged to rehab after admission for congestive heart failure pneumonia. He is presenting back with hypoxia. CT showed some ground-glass changes bilaterally with differentials of atypical infection versus heart failure. Other possibility is aspiration. He is feeling better right now. Overall does not look significantly volume overloaded to me. I think he can be transitioned back to oral diuretics tomorrow. His blood pressure is elevated. I am adding isosorbide 30 mg once a day. Nitrates may help improve his filling pressures along with some BP control. He may need titration of valsartan if BP still elevated. Thank you for allowing me to participate in the care of your patient. Please feel free to contact me if you have any questions. Procedures Date of Service Date of Service: 07/16/21
[2021-07-16] MEDS: Isosorbide Mononitrate 30 MG TAB.ER.24H PO (14:10)
[2021-07-16] MEDS: Docusate Sodium 100 MG CAPSULE PO ×2 (15:29→19:51)
[2021-07-16] MEDS: traZODone HCL 100 MG TABLET PO (19:51)
[2021-07-17] VITALS (7 sets, daily range): BP systolic 109–139; BP diastolic 60–70; PULSE 65–67; RESP 18–20; TEMP 35.5–36.8; O2SAT 93–94
[2021-07-17] MEDS: cefEPime HCl 2 GM in 0.9 % Sodium Chloride 50 ML IV (05:55)
[2021-07-17] MEDS: Omeprazole 40 MG CAPSULE.DR PO ×2 (05:56→16:37)
[2021-07-17] MEDS: methylPREDNISolone Sod Succ 40 MG/ML VIAL 30 MG IVPUSH ×2 (05:56→14:32)
[2021-07-17 07:01] LABS: Anion Gap 12 (12-20); Blood Urea Nitrogen 38 mg/dL (9-16); Calcium 9.6 mg/dL (8.4-10.2); Carbon Dioxide 30 mmol/L (22-29); Chloride 102 mmol/L (96-108); Creatinine Clr Calc Pharmacy 62.6; Estimated Glomerular Filt Rate > 60; Glucose Fasting 130 mg/dL (60-99); Magnesium 1.9 mg/dL (1.6-2.6); Potassium 4.7 mmol/L (3.3-5.1); Sodium 139 mmol/L (135-145)
[2021-07-17 07:04] LABS: Hematocrit 31.3 % (42-52); Hemoglobin 9.9 g/dl (14.0-18.0); Mean Corpuscular HGB Conc 31.6 g/dl (31.0-36.0); Mean Corpuscular Hemoglobin 27.7 pg (27.0-33.0); Mean Corpuscular Volume 87.7 fL (80-98); Mean Platelet Volume 9.8 fL (9.4-12.4); Platelet Count 296 X10*3/uL (160-400); Red Blood Count 3.57 X10*6/uL (4.60-5.80); Red Cell Distribution Width 15.4 % (11.0-16.0); White Blood Count 5.6 X10*3/uL (4.8-10.8)
[2021-07-17] MEDS: Furosemide 20 MG/2 ML VIAL 40 MG IVPUSH (09:10)
[2021-07-17] MEDS: Escitalopram Oxalate 20 MG TABLET PO (09:11)
[2021-07-17] MEDS: Rivaroxaban 20 MG TABLET PO (09:11)
[2021-07-17] MEDS: Metoprolol Tartrate 25 MG TABLET PO (09:11)
[2021-07-17] MEDS: Fenofibrate 160 MG TABLET PO (09:11)
[2021-07-17] MEDS: Isosorbide Mononitrate 30 MG TAB.ER.24H PO (09:11)
[2021-07-17] MEDS: Gabapentin 100 MG CAPSULE PO ×2 (09:11→14:33)
[2021-07-17] MEDS: Magnesium Oxide 400 MG TABLET 800 MG PO ×2 (09:11→16:37)
[2021-07-17] MEDS: Docusate Sodium 100 MG CAPSULE PO (09:11)
[2021-07-17] MEDS: Tamsulosin HCL 0.4 MG CAPSULE PO (09:11)
[2021-07-17] MEDS: allopurinoL 300 MG TABLET PO (09:12)
[2021-07-17] MEDS: Gabapentin 300 MG CAPSULE PO ×2 (09:12→14:33)
[2021-07-17] MEDS: Valsartan 40 MG TABLET PO (09:12)
[2021-07-17] MEDS: Albuterol Sulfate (0.083%) 2.5 MG/3 ML VIAL.NEB INHALE ×2 (11:07→15:25)
--- NOTE | 2021-07-17 11:17 | MHC.CLN ---
RE: CONSULT NO PRESSURE INJURIES NOTED CONTINUE CURRENT CARE PLAN
--- NOTE | 2021-07-17 11:18 | PM.DS ---
DS: Providers Provider Date of Service: 07/17/21 Date of admission: 07/13/21 21:28 Primary care physician: Unknown Physician Consults: 07/14/21 08:07 Consult to Pulmonology Routine Consulting Provider: Rudy Trevino Reason for consultation: Diffuse, patchy bilateral ground-glass airspace opacities, increased, hypox 07/16/21 09:46 Consult to Cardiology Routine Consulting Provider: Rudy Duran Reason for consultation: ?new afib, chf DS: Diagnosis Discharge Diagnosis (1) Diastolic congestive heart failure: Status: Acute (2) HTN (hypertension): Status: Acute DS: Summary Hospital Course Hospital Course: History of presenting illness Date of Service: 07/13/21 Chief Complaint: hypoxia, sob 86-year-old male? from assisted living here with HypOxia.? PMH of? stable COPD, chronic diastolic CHF, HTN that is controlled, history? VTE anticoagulated with? Xarelto. He was recently admitted to the hospital between 06/21 to 06/25 and at time that time treated with for heart failure and pneumonia associated with hypOxia and ultimately discharged back to SNF.? A review of CT chest from last admission shows bilateral bilateral patchy infiltrate reminiscent of COVID pneumonia, he is vaccinated and has tested negative during last visit.? Patient presented to the ED this morning with mechanical fall and work up was unremarkable and was been discharged back to assisted living facility when he was noted to be hypoxic? with O2 of 85 or room and assisted living is not equiped to give him oxygen so work up was rre-initiated for hypoxia.? A CT of the chest shows No PE, diffuse, patchy bilateral ground-glass airspace opacities, increased when compared to the most recent chest CT. Findings can be seen in the setting of viral pneumonia . He is afebrile, WBC is not high, covid test not yet done. BNP level is 442 higher than last one, low mag of 1.4 and normal troponin. Given Cefepime and Vancomycin for ? cellulitis of leg vs stasis dermatitis. Patient otherwise feels fine. Hospital course 86M presented with hypoxia diagnosed with sepsis due to bilateral pneumonia, patient was noted to be in acute hypoxic respiratory failure that was felt to be multifactorial due to acute on chronic diastolic congestive heart failure, mild COPD exacerbation and pneumonia, patient treated with IV cefepime ,doxycycline and IV Lasix, he responded well to above treatment repeat chest x-ray showed significant improvement, hypoxia resolved, due to left lower extremity swelling and erythema duplex study lower extremities were obtained that showed no DVT, mild erythema seems to be chronic however patient is on antibiotic for pneumonia that will cover the leg cellulitis Patient has been continued on Xarelto for history of DVT and PE, patient was evaluated by Cardiology, they added Imdur for better blood pressure control and recommended to place patient back on his regular dose of diuretics, at present patient is hemodynamically stable maintaining good oxygenation therefore being discharged to rehab on by mouth Ceftin for 5 more days, he has been placed on magnesium, due to low magnesium level on admission He is recommended to continue all home medications, due to deconditioning patient was evaluated by physical therapy they recommended short-term rehab however patient is adamant to return back to assisted living therefore will arrange for physical therapy services. Time Spent with Patient Time attestation: Total time spent providing and/or coordinating discharge services: Discharge coordination time: Greater than 30 minutes Quality: Stroke Does the patient have a stroke diagnosis?: No Physical Exam Vital Signs: Vital Signs: Last Vital Signs Temp 96 F L 07/17/21 06:58 Pulse 66 07/17/21 06:58 Resp 19 07/17/21 06:58 BP 139/70 07/17/21 06:58 Pulse Ox 93 07/17/21 09:53 Oxygen Flow Rate 2 07/15/21 08:00 Body Mass Index 36.5 General AxOx3, no acute distress. Neck supple no JVD. CVS regular rate rhythm, Respiratory lungs clear to auscultation, no respiratory distress, no rales Gastrointestinal abdomen soft, nontender, bowel sounds audible, Extremities left leg larger than right, seems chronic with mild hyperemia and chronic discoloration due to venous stasis Neuro nonfocal ,speech clear. Psych appropriate affect DS: Data Data Completed and Pending Labs on day of discharge: Laboratory Results - last 24 hr 07/17/21 07/17/21 06:24 06:24 WBC 5.6 RBC 3.57 L Hgb 9.9 L Hct 31.3 L MCV 87.7 MCH 27.7 MCHC 31.6 RDW 15.4 Plt Count 296 MPV 9.8 Absolute Nucleated RBC 0.000 Nucleated RBC % (auto) 0.0 Sodium 139 Potassium 4.7 Chloride 102 Carbon Dioxide 30 H Anion Gap 12 BUN 38 H Creatinine 1.05 Estim Creat Clear Calc 62.6 Estimated GFR > 60 Fasting Glucose 130 H Calcium 9.6 Magnesium 1.9 Preliminary micro results at discharge 07/13/21 17:19 Blood Culture - Preliminary Blood - Venous No growth after 48 hours. 07/13/21 17:15 Blood Culture - Preliminary Blood - Venous No growth after 48 hours. Discharge Plan Discharge Patient Disposition: Home Health Service Discharge Diagnosis: ACUTE HYPOXIC RESPIRATORY FAILURE Acute diastolic heart failure Referrals: [facility] [Outside] - 1 Week Physician,Unknown J [Physician] - 1 Week Discharge Medications: New magnesium oxide 400 mg (241.3 mg magnesium) Tablet 400 mg PO BIDPC Qty: 60 RF: 0 isosorbide mononitrate 30 mg Tablet Extended Release 24 Hr 30 mg PO DAILY Qty: 30 RF: 0 cefuroxime axetil 500 mg Tablet 500 mg PO Q12H Qty: 10 RF: 0 Continued omeprazole 40 mg capsule,delayed release(DR/EC) 1 cap PO BID RF: 0 tamsulosin 0.4 mg capsule 1 cap PO DAILY RF: 0 trazodone 100 mg tablet 1 tab PO BEDTIME [facility]: 0 gabapentin 300 mg capsule 1 cap PO TID RF: 0 allopurinol 300 mg tablet 1 tab PO DAILY RF: 0 furosemide 20 mg tablet 2 tab PO DAILY RF: 0 gabapentin 100 mg capsule 1 cap PO TID RF: 0 escitalopram oxalate 20 mg tablet 1 tab PO DAILY RF: 0 valsartan 40 mg tablet 1 tab PO DAILY RF: 0 fenofibrate 160 mg tablet 1 tab PO DAILY RF: 0 Xarelto 20 mg tablet 1 tab PO DAILY RF: 0 Breo Ellipta 100-25 mcg/dose blister with device 1 puff inhalation DAILY RF: 0 Discharge Orders: Discharge Order (Routine); Ordered 07/17/21 Ordered By: Jj Zelaya Diet: low salt diet Activity on Discharge: As tolerated Stand Alone Forms: Patient Portal Discharge page Care Plan Goals: Patient declined short-term rehab that was recommended for deconditioning safety , transfer and gait training and therapeutic exercise, Will arrange for VNA and PT Continue Ceftin for 5 more days for pneumonia, CHF improved Health Concerns: Generalized deconditioning/CHF Take all medications as above Plan of Treatment: Outpatient follow-up with primary care physician in 1-2 weeks Assessment: As above Discharge Date/Time: 07/17/21 16:48
[2021-07-18 18:52] LABS: Legionella Ag Urine Not Detected (Not Detected)
== END 2021-07-17 16:48 | disposition home health service (06) | DRG 871 ==
LOC: HO.ED 20:16 → HO.EDOVER 21:46 → HO.IMC 07-14 11:47
PROVIDERS: Internal Medicine; Admitting Provider Internal Medicine; Emergency Provider Internal Medicine; PCP Internal Medicine; Visit Provider Hospitalist
DX: A41.9 Sepsis, unspecified organism (principal); J18.9 Pneumonia, unspecified organism; J96.01 Acute respiratory failure with hypoxia; I50.33 Acute on chronic diastolic (congestive) heart failure; J44.0 Chronic obstructive pulmonary disease with (acute) lower respiratory infection; J44.1 Chronic obstructive pulmonary disease with (acute) exacerbation; L03.116 Cellulitis of left lower limb; Z86.711 Personal history of pulmonary embolism; Z87.891 Personal history of nicotine dependence; I11.0 Hypertensive heart disease with heart failure; Z20.822 Contact with and (suspected) exposure to COVID-19; I87.8 Other specified disorders of veins; M10.9 Gout, unspecified; N40.0 Benign prostatic hyperplasia without lower urinary tract symptoms; Z86.718 Personal history of other venous thrombosis and embolism; Z88.0 Allergy status to penicillin; Z88.2 Allergy status to sulfonamides; Z88.5 Allergy status to narcotic agent; Z79.01 Long term (current) use of anticoagulants; Z79.899 Other long term (current) drug therapy
CPT/HCPCS: 0241U; 36415; 70450; 71045; 71275; 72125; 73030; 73502; 80048; 80076; 81001; 82550; 82803; 83605; 83735; 83880; 84484; 85025; 85027; 85610; 85730; 87040; 87086; 87449; 87633; 93005; 93971; 94640; 96365; 96367; 96375; 97110; 97116; 97162; 99284; 99285; J0692; J1940; J2920; J3370; J3475; Q9967

== ENCOUNTER 2021-07-29 15:42 | Inpatient (IN) | payer MEDICARE, SELFPAY ==
--- NOTE | ~2021-07-29 | XR_ITS ---
EXAMINATION: XR CHEST CLINICAL INFORMATION: Hypoxia COMPARISON: 07/29/2021 TECHNIQUE: Frontal view of the chest was obtained. FINDINGS: Again noted is a large cardiac silhouette with dual-chamber pacemaker in place. Thoracic aorta is calcified. Pulmonary vessels have an engorged/congested appearance. Compared to 07/29/2021, there is interval worsening patchy bilateral airspace opacity but no overt pleural effusion. No pneumothorax or other significant change. XR/XR chest 1V IMPRESSION: Cardiomegaly, pulmonary vascular congestion and interval worsening of patchy bilateral airspace opacity. Findings could represent worsening pulmonary edema. Query if there is any clinical suspicion for any superimposed pneumonia.
--- NOTE | ~2021-07-29 | XR_ITS ---
EXAMINATION: XR CHEST CLINICAL INFORMATION: CHF COMPARISON: Chest right 07/16/[address] chest 07/13/2021 TECHNIQUE: Frontal view of the chest was obtained. FINDINGS: Since the prior study, there's been a slight increase in interstitial markings suggesting mild worsening of the patient's CHF. Some of these findings could represent residua of patient's atypical/viral pneumonia. Tiny pleural effusions may be present. The left costophrenic angle is not included on the radiograph. Again noted is a left chest wall bipolar pacer. The distal ventricular lead is not included on the radiograph. Increased opacity is seen in the retrocardiac region with some obscuration of the hemidiaphragm which may be secondary to atelectasis. XR/XR chest 1V IMPRESSION: Slight increase in interstitial markings as described above increased retrocardiac opacity with obscuration left hemidiaphragm. A PA inspiratory as well as lateral chest radiograph may be useful for further evaluation as the lung bases, especially on the left, were not included on this radiograph.
--- NOTE | ~2021-07-29 | XR_ITS ---
EXAMINATION: XR CHEST CLINICAL INFORMATION: Hypoxia COMPARISON: August 01, 2021 and July 31, 2021 TECHNIQUE: AP portable view of the chest was obtained. FINDINGS: There is essentially stable interstitial and airspace disease seen bilaterally. No pneumothorax or significant pleural effusion appreciated. There appears be more confluent disease in the left lower lobe. Pacemaker seen in place. Heart normal size. No evidence of pulmonary edema. XR/XR chest 1V IMPRESSION: Stable interstitial and airspace disease compared to previous study.
--- NOTE | ~2021-07-29 | XR_ITS ---
EXAMINATION: XR CHEST CLINICAL INFORMATION: Hypoxia COMPARISON: July 31, 2021 and July 29, 2021 TECHNIQUE: AP portable view of the chest was obtained. FINDINGS: There remains bilateral regions of interstitial and airspace disease with improvement in right lung disease since previous study. Heart normal size. No evidence of pulmonary edema. No pneumothorax. Cannot rule out possible left effusion. Pacemaker in place. XR/XR chest 1V IMPRESSION: Continued bilateral interstitial and airspace disease with improvement in right lung disease since previous study.
--- NOTE | ~2021-07-29 | CT_ITS ---
EXAMINATION: CT CHEST WITHOUT CONTRAST CLINICAL INFORMATION: Worsening CHF with shortness of breath. COMPARISON: Chest radiograph earlier today along with chest CT 07/13/2021 TECHNIQUE: Multidetector volumetric CT imaging of the chest was done. Axial MIP volume rendering provided. Sagittal and coronal reformatted images were obtained. This CT examination was performed using dose optimization techniques as appropriate, variously including the following: *Automated exposure control *Adjustment of mA and/or kV according to patient size (this includes techniques or standardized protocols for targeted exams where dose is matched to indication/reason for exam; i.e. extremities or head) *Use of iterative reconstruction technique DLP: 853 mGy-cm FINDINGS: LUNGS: Compared to the prior study, there's been some improvement in the multifocal groundglass opacities seen throughout both lungs. Considerable abnormality persists. Findings are suggestive of Covid 19 rather than CHF. MEDIASTINUM: There is mild cardiac enlargement. Left chest wall bipolar pacemaker is present. 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 No mediastinal or hilar lymphadenopathy is seen PLEURA: There is no pleural effusion. No pleural mass or thickening. AXILLA: No lymphadenopathy. UPPER ABDOMEN: There is mild splenomegaly. There may be hepatomegaly, but the entire liver is not included on the exam. Partial visualization of a retrievable IVC filter. OSSEOUS STRUCTURES: Marked degenerative changes noted throughout the spine. CT/CT chest wo con IMPRESSION: Commonly reported imaging features of Covid 19 or viral pneumonia are present, which appear slightly improved when compared to the prior CT scan. Other processes such as influenza pneumonia or organizing pneumonia, as can be seen with drug toxicity and connective tissue disease, can cause a similar imaging pattern. Despite the presence of cardiomegaly, the patient's findings are not typical of CHF with pulmonary edema especially given the lack of any pleural effusions.
[2021-07-29 15:48] VITALS: BP 132/62; PULSE 67; RESP 14; TEMP 36.7; O2SAT 100; BMI 36.5
--- NOTE | 2021-07-29 16:22 | ED_ITS ---
HPI - SOB/Dyspnea General Chief Complaint: Dyspnea Stated Complaint: sob Time Seen by Provider: 07/29/21 16:22 Source: patient Mode of arrival: EMS Limitations: no limitations History of Present Illness HPI Narrative: 86-year-old male past medical history of AFib on xerelto, CAD, COPD, CHF with diastolic dysfunction presents to the emergency department from assisted living where they are concerned for low oxygen levels and increasing shortness of breath x1 week. He states [facility] of the nurses at the [facility] facility told him he should come into the emergency department due low oxygen levels in the 80's. He states when he was having low oxygen he felt okay. However he feels as though his shortness breath has been progressively worsening over the past week, he adds he even feels short of breath at rest. He also expresses he has been having increased weakness over the past week and he states he is no longer able to ambulate. He offers no other concerns at this time. He usually does not use oxygen. He is a former smoker. He denies chest pain, fevers, chills, abdominal pain, changes in urination, recent sick contacts, cough. MD elicited complaint: shortness of breath Pertinent past history: COPD, congestive heart failure and PE Onset (ago): week(s) (1) Context: recent illness Timing: constant Severity: moderate Exacerbating factors: nothing Relieving factors: oxygen Known history of: COPD, congestive heart failure and PE Associated symptoms: denies other symptoms Treatment prior to arrival: oxygen and other (Nitroglycerin) Related Data Home Medications Medication Instructions Recorded Confirmed allopurinol 300 mg tablet 1 tab PO DAILY 06/21/21 07/29/21 escitalopram oxalate 20 mg tablet 1 tab PO DAILY 06/21/21 07/29/21 fenofibrate 160 mg tablet 1 tab PO DAILY 06/21/21 07/29/21 fluticasone furoate 100 1 puff INHALATION DAILY 06/21/21 07/29/21 mcg-vilanterol 25 mcg/dose inhalation powder (Breo Ellipta) furosemide 20 mg tablet 2 tab PO DAILY 06/21/21 07/29/21 gabapentin 100 mg capsule 1 cap PO TID 06/21/21 07/29/21 gabapentin 300 mg capsule 1 cap PO TID 06/21/21 07/29/21 omeprazole 40 mg capsule,delayed 1 cap PO BID 06/21/21 07/29/21 release rivaroxaban 20 mg tablet (Xarelto) 1 tab PO DAILY 06/21/21 07/29/21 tamsulosin 0.4 mg capsule 1 cap PO DAILY 06/21/21 07/29/21 valsartan 40 mg tablet 1 tab PO DAILY 06/21/21 07/29/21 trazodone 150 mg tablet 1 tab PO BEDTIME 07/29/21 07/29/21 Previous Rx's Medication Instructions Recorded isosorbide mononitrate 30 mg 30 mg PO DAILY #30 tab 07/17/21 tablet,extended release 24 hr magnesium oxide 400 mg (241.3 mg 400 mg PO BIDPC #60 tab 07/17/21 magnesium) tablet Allergies Allergy/AdvReac Type Severity Reaction Status Date / Time levofloxacin [LEVOFLOXACIN] Allergy Severe HYPOTENSION Verified 06/24/21 00:47 Penicillins [PCN] Allergy Severe DIFFICULTY Verified 06/24/21 00:47 BREATHING,RASH penicillin V Allergy Unknown sob/rash Verified 06/24/21 00:47 quinine [QUININE] Allergy Unknown UNKNOWN, ? Verified 06/24/21 00:47 Sulfa (Sulfonamide Allergy Unknown UNSURE Verified 06/24/21 00:47 Antibiotics) [SULFA(SULFONAMIDE ANTIBIOTICS)] morphine [MORPHINE] AdvReac Intermediate HYPOTENSION Verified 06/24/21 00:47 MUSCLE RELAXERS Allergy Severe RASH/IMMOBI Uncoded 06/28/20 14:48 LITY Review of Systems Review of Systems: Constitutional : No Weight loss, No Fever, No Chills, No Night Sweats, No Fatigue, No Malaise ENT/Mouth : No Hearing loss, No Ear Pain, No Nasal Congestion, No Sinus Pain, No Hoarseness, No sore throat, No Rhinorrhea, No Swallowing Difficulty Eyes: No Eye Pain, No Swelling, No Redness, No Foreign Body, No Discharge, No Vision Changes Cardiovascular : No Chest Pain, pos SOB, no Dyspnea on Exertion, No Orthopnea, No Edema, No Palpitations Respiratory : No Cough, No Sputum, No Wheezing, No Smoke Exposure, + Dyspnea Gastrointestinal : No Nausea, No Vomiting, No Diarrhea, No abdominal Pain, No Hematochezia, No Melena Genitourinary : No irregular bleeding, No Dysuria, No Urinary Frequency, No Hematuria, No Urinary Incontinence, No Urgency, No Flank Pain, No Urinary Flow Changes, No Hesitancy Musculoskeletal : No joint pain, No Myalgias, No Joint Swelling Skin : No Skin Lesions, No rash Neuro : No Weakness, No Numbness, No Paresthesias, No Loss of Consciousness, No Dizziness, No Headache Neurologic: Reports Abnormal speech present [facility] Past Medical History Attestation statement: The following information was validated with the patient. Source: old records reviewed and nursing notes reviewed Medical History BPH (benign prostatic hyperplasia) CHF (congestive heart failure) COPD (chronic obstructive pulmonary disease) DVT (deep venous thrombosis) Gout History of pulmonary embolism HTN (hypertension) Hypomagnesemia Hypoxia Surgical History Status post placement of cardiac pacemaker Family History Family History Other HTN (hypertension) Heart disease Social History Social History Household Members: None Housing: Assisted Living Facility Do you presently have visiting nurse or other home services: No ( hired a gi rl ) Alcohol intake: never Patient Tobacco Use Status: Former Tobacco user Advance Directives: Yes Advance Directives on File: Yes Advance Directives Date on File: 07/13/21 service: No Current occupational status: retired Physical Exam Vital Signs: Vital Signs: Last Vital Signs Temp 98.5 F 07/29/21 19:06 Pulse 68 07/29/21 19:06 Resp 17 07/29/21 19:06 BP 142/55 H 07/29/21 19:06 Pulse Ox 97 07/29/21 19:06 Oxygen Flow Rate 4 07/29/21 15:48 Body Mass Index 36.5 Vitals within normal limits. Not tachypneic or tachycardic. He is saturating 100% on 2 L nasal cannula. Const: General: cooperative Nutritional Appearance: average body habitus Orientation/consciousness: oriented to person, oriented to place and oriented to time Limitations: no limitations HENMT: Head: Yes normal to inspection Mouth: Normal oral and palatal mucosa present Eyes: General: appearance normal, both eyes and all related structures Pupils: Equal, round and reactive pupils present EOM: EOMs intact bilaterally Neck: Neck: Yes normal visual inspection and Yes full ROM Thyroid: Thyroid normal Lymphatic: no lymphadenopathy noted Resp: Effort & Inspection: normal respiratory effort and able to speak in complete sentences Auscultation: clear to auscultation bilaterally Cardio: Palpation: normal PMI Rate: regular rate Rhythm: regular rhythm and abnormal rhythm Heart sounds: S1 normal heart sound present and S2 normal heart sound present GI: Inspection: Yes normal to inspection Palpation (GI): Soft to palpation and nontender : General: Yes no CVA tenderness Back/Spine/Pelvis: Back: no CVA tenderness Neuro: General: oriented to person, oriented to place and oriented to time Cranial nerves: Yes CN's II-XII intact bilaterally and Yes Equal, round and reactive pupils present Cognition (Neuro): normal cognition Speech: Abnormal speech present Gait exam (Neuro): Normal gait present Motor exam (neuro): 5/5 motor strength present throughout Sensory Exam: Normal double simultaneous stimulation for sensation Extrem: Other: There is erythema, swelling and calor noted the left lower extremity. General: Yes full ROM, Yes capillary refill normal, Yes no calf tenderness and Yes edema (3+ non pitting edema noted to bilater lower extemities. ) Left upper extremity: No abnormal to inspection Psych: Mental Status: mental status grossly normal Course Course Course Narrative: 1818 86-year-old male past medical history of AFib on xerelto, CAD, COPD, CHF with diastolic dysfunction presents to the emergency department from assisted living where they are concerned for low oxygen levels and increasing shortness of breath x1 week. Patient does not usually use oxygen at home. Per EMS he was saturating in the low 80s, which prompted the to initiate 5L of O2 via nasal canula. He was then saturating 96%. They also gave him a nitroglycerin patch for tachycardia, which was removed upon his arrival. He is now saturating 96% on 2 L via nasal cannula. Patient also mentions that he feels no different now, than he did when he was saturating in the low 80's. He denies chest pain, changes in urination, fevers, chills. To note, patient was admitted to the hospital on 07/13/2021, and discharged on 07/17/2021 for acute hypoxic respiratory failure with acute diastolic heart failure. He was treated with Ceftin pneumonia while he was here. And they report that throughout his stay, there was improvement in terms of his CHF. Notes also mentioned that his lower extremities usually exhibit calor, and erythema, left worse than the right. Similar findings on todays exam. Upon physical examination lungs are clear to auscultation, patient is resting comfortably on the stretcher and in no acute distress. He is able to speak in full sentences. There is 3+ nonpitting edema noted to bilateral lower extrem ities. There is also cellulitis noted to the left lower extremity. Plan at this time is to obtain basic labs, cultures, lactic acid, chest x-ray, PT INR, BNP, troponin, COVID, magnesium. Reevaluation(s) Reevaluation #1: Acute choose a nonspecific findings on chest x-ray, a CT of the chest will be ordered at this time o r/o pna. Time: 18:01 Reevaluation #2: After reviewing patient's chest x-ray, and CT scan antibiotics will be initiated at this time to cover for pneumonia Rocephin 1 g doxycycline 100. Plan at this time is to wait for the final CT read, and admit the patient inpatient for CHF, hypoxia, pneumonia, left lower extremity cellulitis. Time: 19:04 Reevaluation #3: Spoke to Dr. Guerrero who will be admitting the patient. At this time patient will be put on 1 L of oxygen, and monitored. Time: 20:05 MDM - SOB/Dyspnea Lab Data Attestation: I reviewed the patient's lab results. Result diagrams: 07/29/21 18:20 07/29/21 18:20 Labs: Lab Results 07/29/21 07/29/21 07/29/21 Range/Units 18:19 18:19 18:19 WBC (4.8-10.8) X10*3/uL RBC (4.60-5.80) X10*6/uL Hgb (14.0-18.0) g/dl Hct (42-52) % MCV (80-98) fL MCH (27.0-33.0) pg MCHC (31.0-36.0) g/dl RDW (11.0-16.0) % Plt Count (160-400) X10*3/uL MPV (9.4-12.4) fL Immature Gran % (Auto) (0.0-0.4) % Neut % (Auto) (45-73) % Lymph % (Auto) (20-40) % [place] % (Auto) (2-11) % Eos % (Auto) (0-4) % Baso % (Auto) (0-2) % Lymph # (Auto) (1.2-4.9) X10*3/uL [place] # (Auto) (0.1-1.2) X10*3/uL Eos # (Auto) (0.0-0.4) X10*3/uL Baso # (Auto) (0.0-0.2) X10*3/uL Abs Immat Gran (auto) (0.00-0.03) X10*3/uL Absolute Neuts (auto) (2.0-8.3) X10*3/uL Absolute Nucleated RBC (0.0-0.012) X10*3/uL Nucleated RBC % (auto) (0.0-0.2) /100WBC PT (9.9-13.0) SEC INR (0.9-1.1) Sodium (135-145) mmol/L Potassium (3.3-5.1) mmol/L Chloride (96-108) mmol/L Carbon Dioxide (22-29) mmol/L Anion Gap (12-20) BUN (9-16) mg/dL Creatinine (0.5-1.4) mg/dL Estim Creat Clear Calc Estimated GFR Random Glucose (60-115) mg/dL Lactic Acid 1.3 (0.5-2.0) mmol/L Calcium (8.4-10.2) mg/dL Magnesium (1.6-2.6) mg/dL Total Bilirubin (0.0-1.0) mg/dL AST (5-37) U/L ALT (0-40) U/L Alkaline Phosphatase (39-117) U/L Troponin I High Sens 11.3 (<3.5-35.0) ng/L B-Natriuretic Peptide (<100) pg/mL Total Protein (6.5-8.0) g/dL Albumin (3.5-5.0) g/dL COVID-19 (ESAU) Negative (Negative) COVID-19 Clin Com See Note 07/29/21 07/29/21 07/29/21 Range/Units 18:20 18:20 18:20 WBC 5.1 (4.8-10.8) X10*3/uL RBC 3.65 L (4.60-5.80) X10*6/uL Hgb 10.2 L (14.0-18.0) g/dl Hct 32.2 L (42-52) % MCV 88.2 (80-98) fL MCH 27.9 (27.0-33.0) pg MCHC 31.7 (31.0-36.0) g/dl RDW 16.5 H (11.0-16.0) % Plt Count 212 D (160-400) X10*3/uL MPV 9.4 (9.4-12.4) fL Immature Gran % (Auto) 1.0 H (0.0-0.4) % Neut % (Auto) 67.9 (45-73) % Lymph % (Auto) 15.5 L (20-40) % [place] % (Auto) 11.7 H (2-11) % Eos % (Auto) 3.7 (0-4) % Baso % (Auto) 0.2 (0-2) % Lymph # (Auto) 0.8 L (1.2-4.9) X10*3/uL [place] # (Auto) 0.6 (0.1-1.2) X10*3/uL Eos # (Auto) 0.2 (0.0-0.4) X10*3/uL Baso # (Auto) 0.0 (0.0-0.2) X10*3/uL Abs Immat Gran (auto) 0.05 H (0.00-0.03) X10*3/uL Absolute Neuts (auto) 3.5 (2.0-8.3) X10*3/uL Absolute Nucleated RBC 0.000 (0.0-0.012) X10*3/uL Nucleated RBC % (auto) 0.0 (0.0-0.2) /100WBC PT (9.9-13.0) SEC INR (0.9-1.1) Sodium 141 (135-145) mmol/L Potassium 4.5 (3.3-5.1) mmol/L Chloride 104 (96-108) mmol/L Carbon Dioxide 27 (22-29) mmol/L Anion Gap 15 (12-20) BUN 21 H (9-16) mg/dL Creatinine 1.30 (0.5-1.4) mg/dL Estim Creat Clear Calc 50.6 Estimated GFR 53 Random Glucose 123 H (60-115) mg/dL Lactic Acid (0.5-2.0) mmol/L Calcium 9.0 D (8.4-10.2) mg/dL Magnesium 1.8 (1.6-2.6) mg/dL Total Bilirubin 0.4 (0.0-1.0) mg/dL AST 21 (5-37) U/L ALT 10 (0-40) U/L Alkaline Phosphatase 51 (39-117) U/L Troponin I High Sens (<3.5-35.0) ng/L B-Natriuretic Peptide 344 H (<100) pg/mL Total Protein 5.9 L (6.5-8.0) g/dL Albumin 3.5 (3.5-5.0) g/dL COVID-19 (ESAU) (Negative) COVID-19 Clin Com 07/29/21 Range/Units 18:20 WBC (4.8-10.8) X10*3/uL RBC (4.60-5.80) X10*6/uL Hgb (14.0-18.0) g/dl Hct (42-52) % MCV (80-98) fL MCH (27.0-33.0) pg MCHC (31.0-36.0) g/dl RDW (11.0-16.0) % Plt Count (160-400) X10*3/uL MPV (9.4-12.4) fL Immature Gran % (Auto) (0.0-0.4) % Neut % (Auto) (45-73) % Lymph % (Auto) (20-40) % [place] % (Auto) (2-11) % Eos % (Auto) (0-4) % Baso % (Auto) (0-2) % Lymph # (Auto) (1.2-4.9) X10*3/uL [place] # (Auto) (0.1-1.2) X10*3/uL Eos # (Auto) (0.0-0.4) X10*3/uL Baso # (Auto) (0.0-0.2) X10*3/uL Abs Immat Gran (auto) (0.00-0.03) X10*3/uL Absolute Neuts (auto) (2.0-8.3) X10*3/uL Absolute Nucleated RBC (0.0-0.012) X10*3/uL Nucleated RBC % (auto) (0.0-0.2) /100WBC PT 18.8 H D (9.9-13.0) SEC INR 1.6 H (0.9-1.1) Sodium (135-145) mmol/L Potassium (3.3-5.1) mmol/L Chloride (96-108) mmol/L Carbon Dioxide (22-29) mmol/L Anion Gap (12-20) BUN (9-16) mg/dL Creatinine (0.5-1.4) mg/dL Estim Creat Clear Calc Estimated GFR Random Glucose (60-115) mg/dL Lactic Acid (0.5-2.0) mmol/L Calcium (8.4-10.2) mg/dL Magnesium (1.6-2.6) mg/dL Total Bilirubin (0.0-1.0) mg/dL AST (5-37) U/L ALT (0-40) U/L Alkaline Phosphatase (39-117) U/L Troponin I High Sens (<3.5-35.0) ng/L B-Natriuretic Peptide (<100) pg/mL Total Protein (6.5-8.0) g/dL Albumin (3.5-5.0) g/dL COVID-19 (ESAU) (Negative) COVID-19 Clin Com Imaging Data Chest x-ray: Attestation: I personally reviewed and interpreted this imaging study as follows: Radiologist's impression: FINDINGS: Since the prior study, there's been a slight increase in interstitial markings suggesting mild worsening of the patient's CHF. Some of these findings could represent residua of patient's atypical/viral pneumonia. Tiny pleural effusions may be present. The left costophrenic angle is not included on the radiograph. Again noted is a left chest wall bipolar pacer. The distal ventricular lead is not included on the radiograph. Increased opacity is seen in the retrocardiac region with some obscuration of the hemidiaphragm which may be secondary to atelectasis. XR/XR chest 1V IMPRESSION: Slight increase in interstitial markings as described above increased retrocardiac opacity with obscuration left hemidiaphragm. A PA inspiratory as well as lateral chest radiograph may be useful for further evaluation as the lung bases, especially on the left, were not included on this radiograph. ? CT scan - chest: Attestation: I personally reviewed and interpreted this imaging study as follows: Radiologist's impression: FINDINGS: LUNGS: Compared to the prior study, there's been some improvement in the multifocal groundglass opacities seen throughout both lungs. Considerable abnormality persists. Findings are suggestive of Covid 19 rather than CHF.? MEDIASTINUM: There is mild cardiac enlargement. Left chest wall bipolar pacemaker is present. 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 No mediastinal or hilar lymphadenopathy is seen? PLEURA: There is no pleural effusion. No pleural mass or thickening.? AXILLA: No lymphadenopathy.? UPPER ABDOMEN: There is mild splenomegaly. There may be hepatomegaly, but the entire liver is not included on the exam. Partial visualization of a retrievable IVC filter. OSSEOUS STRUCTURES: Marked degenerative changes noted throughout the spine.? CT/CT chest wo con IMPRESSION: Commonly reported imaging features of Covid 19 or viral pneumonia are present, which appear slightly improved when compared to the prior CT scan. Other processes such as influenza pneumonia or organizing pneumonia, as can be seen with drug toxicity and connective tissue disease, can cause a similar imaging pattern. Despite the presence of cardiomegaly, the patient's findings are not typical of CHF with pulmonary edema especially given the lack of any pleural effusions. ? Discharge Plan Discharge Clinical Impression: Hypoxia Cellulitis Qualifiers: Site of cellulitis: extremity Site of cellulitis of extremity: lower extremity Laterality: left Qualified Code(s): L03.116 - Cellulitis of left lower limb Community acquired pneumonia Qualifiers: Laterality: unspecified laterality Qualified Code(s): J18.9 - Pneumonia, unspecified organism Congestive heart failure Qualifiers: Heart failure type: diastolic Heart failure chronicity: acute on chronic Qualified Code(s): I50.33 - Acute on chronic diastolic (congestive) heart fail ure Patient Disposition: Admitted As Inpatient
--- NOTE | 2021-07-29 16:26 | PC.NURSE ---
pt alert and orinetd x4, vss. pt reports increased sob x1 week. pt has history of CHF. he also has a pace maker. per ems pt was satting high 80s during transport to ed, he was put on 5L of oxygen in the ambulance. pt's o2 sat on arrival to the ed was 100% on 5L. Pt slowly decreased to 2L and satting at 97% on 2L n/c. Pt denies sob/chest pain/headache/dizziness. no respiratory distress/difficulty breathing noted.
--- NOTE | 2021-07-29 16:36 | ECG_ITS ---
Test Reason : SOB Blood Pressure : / mmHG Vent. Rate : 069 BPM Atrial Rate : 073 BPM P-R Int : 000 ms QRS Dur : 162 ms QT Int : 466 ms P-R-T Axes : 000 -66 108 degrees QTc Int : 499 ms Ventricular-paced rhythm Abnormal ECG Heart rate has decreased Referred By: [facility] [facility] Electronically Signed By:LEBRON RAMÍREZ MD
[2021-07-29 18:27] LABS: MANUAL DIFF FLAG NO
[2021-07-29 18:35] LABS: Basophils Percent Auto 0.2 % (0-2); Eosinophils Absolute Auto 0.2 X10*3/uL (0.0-0.4); Eosinophils Percent Auto 3.7 % (0-4); Hematocrit 32.2 % (42-52); Hemoglobin 10.2 g/dl (14.0-18.0); INTERNATIONAL NORM RATIO 1.6 (0.9-1.1); Imm Gran Abs Auto 0.05 X10*3/uL (0.00-0.03); Lymphocytes Absolute Auto 0.8 X10*3/uL (1.2-4.9); Lymphocytes Percent Auto 15.5 % (20-40); Mean Corpuscular HGB Conc 31.7 g/dl (31.0-36.0); Mean Corpuscular Hemoglobin 27.9 pg (27.0-33.0); Mean Corpuscular Volume 88.2 fL (80-98); Mean Platelet Volume 9.4 fL (9.4-12.4); Monocytes Absolute Auto 0.6 X10*3/uL (0.1-1.2); Monocytes Percent Auto 11.7 % (2-11); Neutrophils Absolute Auto 3.5 X10*3/uL (2.0-8.3); Neutrophils Percent Auto 67.9 % (45-73); Platelet Count 212 X10*3/uL (160-400); Prothrombin Time 18.8 SEC (9.9-13.0); Red Blood Count 3.65 X10*6/uL (4.60-5.80); Red Cell Distribution Width 16.5 % (11.0-16.0); White Blood Count 5.1 X10*3/uL (4.8-10.8)
[2021-07-29 18:39] LABS: Lactic Acid 1.3 mmol/L (0.5-2.0)
[2021-07-29 18:42] VITALS: BP 125/41; PULSE 69; RESP 14; TEMP 37; O2SAT 91
[2021-07-29 18:45] LABS: COVID-19 Test Negative (Negative)
[2021-07-29 18:47] LABS: Alanine Aminotransferase 10 U/L (0-40); Albumin Level 3.5 g/dL (3.5-5.0); Alkaline Phosphatase 51 U/L (39-117); Anion Gap 15 (12-20); Aspartate Amino Transferase 21 U/L (5-37); Bilirubin Total 0.4 mg/dL (0.0-1.0); Blood Urea Nitrogen 21 mg/dL (9-16); Carbon Dioxide 27 mmol/L (22-29); Chloride 104 mmol/L (96-108); Creatinine Clr Calc Pharmacy 50.6; Estimated Glomerular Filt Rate 53; Glucose Random 123 mg/dL (60-115); Magnesium 1.8 mg/dL (1.6-2.6); Potassium 4.5 mmol/L (3.3-5.1); Sodium 141 mmol/L (135-145); Total Protein 5.9 g/dL (6.5-8.0)
[2021-07-29 18:48] LABS: B Type Natriuretic Peptide 344 pg/mL (<100)
[2021-07-29 18:48] LABS: Troponin-I High Sensitivity 11.3 ng/L (<3.5-35.0)
[2021-07-29 19:06] VITALS: BP 142/55; PULSE 68; RESP 17; TEMP 36.9; O2SAT 97
[2021-07-29] MEDS: Furosemide 20 MG/2 ML VIAL IVPUSH (19:10)
--- NOTE | 2021-07-29 19:17 | PHA.MEDREC ---
Pharmacy Consult ? Medication Reconciliation Pharmacy has completed the medication reconciliation. Patient fills med boxes at [facility]. Last put up date was 07/25. Alysa Maldonado, PharmD [phone]
--- NOTE | 2021-07-29 19:19 | PHA.MEDREC ---
Pharmacy Consult ? Medication Reconciliation Pharmacy has completed the medication reconciliation. Patient fills med boxes at [facility]. Last chart picker date was 07/25. Alysa Maldonado, PharmD [phone]
[2021-07-29] MEDS: cefTRIAXone sodium 1 GM in 0.9 % Sodium Chloride 50 ML IV (20:17)
[2021-07-29] MEDS: Doxycycline Hyclate 100 MG in 0.9 % Sodium Chloride 250 ML 166.67 MG IV (20:53)
--- NOTE | 2021-07-29 20:56 | P.HPHOSP_ITS ---
History of Present Illness Date of Service: 07/29/21 Chief Complaint: Shortness of breath This is an 86-year-old male with past medical history of CHF, COPD, DVT, history of PE, HTN, gout who presents to the hospital with complaints of shortness of breath for the past 1 week. Patient reports that his shortness of breath has worsened to occur even at rest, he denies any cough but reports some phlegm production, reports that his lower extremities have been swollen for many years and he has recurrent chronic cellulitis, according to ED reports EMS found patient to be hypoxic in the 80%. He denies any fever or chills. is currently on 4 L of oxygen satting 92%. Patient otherwise denies any headache, change in vision, no chest pain, no palpitations, no abdominal pain nausea or vomiting, no diarrhea constipation, no urinary symptoms and no numbness tingling and reports progressive generalized weakness over the past 1 week On arrival to the ED patient found to have a temp of a 100.9?, heart rate of 111 , respiratory rate of 24, blood pressure of 152/78, satting around 90% on 2 L but does desat to the 80s and therefore increased to about 6 L of oxygen and now satting 94% Labs are significant for WBC count of 5.1, hemoglobin of 10.2 which is around his baseline, PT of 18.8, INR of 1.6, BNP of 344 which is lower than his most recent in beginning of July, Chest CT shows commonly reported imaging feed during of COVID-19 or viral pneumonia is present, not typical of CHF with no pulmonary edema with no pleural effusion COVID-19 negative respiratory failure patient will be admitted for further management Review of Systems Review of Systems: Yes all other systems are reviewed and are negative [facility] Medical History BPH (benign prostatic hyperplasia) CHF (congestive heart failure) COPD (chronic obstructive pulmonary disease) DVT (deep venous thrombosis) Gout History of pulmonary embolism HTN (hypertension) Hypomagnesemia Hypoxia Family History Other HTN (hypertension) Heart disease Pertinent family history: No pertinent history Surgical History Status post placement of cardiac pacemaker Social History Household Members: None Housing: Assisted Living Facility Do you presently have visiting nurse or other home services: Yes Alcohol intake: never Patient Tobacco Use Status: Former Tobacco user Use of substances other than those prescribed or required for medical reasons: No Currently Displaying Signs/Symptoms of Drug Intoxication Withdrawal: No Advance Directives: Yes Advance Directives on File: Yes Advance Directives Date on File: 07/13/21 Do you have thoughts of harming others: None Do you have a plan to hurt others: No Plan Recently lost weight without trying: No Nutrition Risks: No Nutritional Risk Poor oral hygiene: No service: No Current occupational status: retired Meds Allergies Allergy/AdvReac Type Severity Reaction Status Date / Time levofloxacin [LEVOFLOXACIN] Allergy Severe HYPOTENSION Verified 06/24/21 00:47 Penicillins [PCN] Allergy Severe DIFFICULTY Verified 06/24/21 00:47 BREATHING,RASH penicillin V Allergy Unknown sob/rash Verified 06/24/21 00:47 quinine [QUININE] Allergy Unknown UNKNOWN, ? Verified 06/24/21 00:47 Sulfa (Sulfonamide Allergy Unknown UNSURE Verified 06/24/21 00:47 Antibiotics) [SULFA(SULFONAMIDE ANTIBIOTICS)] morphine [MORPHINE] AdvReac Intermediate HYPOTENSION Verified 06/24/21 00:47 MUSCLE RELAXERS Allergy Severe RASH/IMMOBI Uncoded 06/28/20 14:48 LITY Active Medications: Current Medications Pharmacy Consult (Consult Rx Perform Med Rec) 1 each MISCELLANE ONCE PRN PRN Reason: Consult order Home Medications Medication Instructions Recorded Confirmed Last Taken Type allopurinol 300 mg tablet 1 tab PO DAILY 06/21/21 07/29/21 06/21/21 History escitalopram oxalate 20 mg tablet 1 tab PO DAILY 06/21/21 07/29/21 06/21/21 History fenofibrate 160 mg tablet 1 tab PO DAILY 06/21/21 07/29/21 06/21/21 History fluticasone furoate 100 1 puff INHALATION DAILY 06/21/21 07/29/21 06/21/21 History mcg-vilanterol 25 mcg/dose inhalation powder (Breo Ellipta) furosemide 20 mg tablet 2 tab PO DAILY 06/21/21 07/29/21 06/21/21 History gabapentin 100 mg capsule 1 cap PO TID 06/21/21 07/29/21 06/21/21 History gabapentin 300 mg capsule 1 cap PO TID 06/21/21 07/29/21 06/21/21 History omeprazole 40 mg capsule,delayed 1 cap PO BID 06/21/21 07/29/21 06/21/21 History release rivaroxaban 20 mg tablet (Xarelto) 1 tab PO DAILY 06/21/21 07/29/21 06/21/21 History tamsulosin 0.4 mg capsule 1 cap PO DAILY 06/21/21 07/29/21 06/21/21 History valsartan 40 mg tablet 1 tab PO DAILY 06/21/21 07/29/21 06/21/21 History trazodone 150 mg tablet 1 tab PO BEDTIME 07/29/21 07/29/21 Unknown History Physical Exam Vital Signs and Narrative: Vital Signs: Last Vital Signs Temp 98.5 F 07/29/21 19:06 Pulse 68 07/29/21 19:06 Resp 17 07/29/21 19:06 BP 142/55 H 07/29/21 19:06 Pulse Ox 97 07/29/21 19:06 Oxygen Flow Rate 4 07/29/21 15:48 Body Mass Index 36.5 Const: Other: Obese man but appears in no distress General: cooperative Orientation/consciousness: patient oriented x3 Eyes: General: appearance normal, both eyes and all related structures Pupils: Equal, round and reactive pupils present Resp: Effort & Inspection: normal respiratory effort Auscultation: clear to auscultation bilaterally Cardio: Rate: regular rate Rhythm: regular rhythm GI: Palpation (GI): Soft to palpation Auscultation: normal bowel sounds Skin: Other: Left lower extremity erythema, and edema Neuro: General: patient oriented x3 Cranial nerves: Yes Equal, round and reactive pupils present Cognition (Neuro): normal cognition Extrem: Other: 3+ bilateral lower extremity edema General: Yes normal to inspection Results Labs CBC and Chem 7: 07/29/21 18:20 07/29/21 18:20 Labs: Laboratory Results - last 24 hr 07/29/21 07/29/21 07/29/21 18:19 18:19 18:19 MCV MCH MCHC RDW Plt Count MPV Immature Gran % (Auto) Neut % (Auto) Lymph % (Auto) [place] % (Auto) Eos % (Auto) Baso % (Auto) Lymph # (Auto) [place] # (Auto) Eos # (Auto) Baso # (Auto) Abs Immat Gran (auto) Absolute Neuts (auto) Absolute Nucleated RBC Nucleated RBC % (auto) PT INR Anion Gap Estim Creat Clear Calc Estimated GFR Random Glucose Lactic Acid 1.3 Calcium Magnesium Total Bilirubin AST ALT Alkaline Phosphatase Troponin I High Sens 11.3 B-Natriuretic Peptide Total Protein Albumin COVID-19 (ESAU) Negative COVID-19 Clin Com See Note 07/29/21 07/29/21 07/29/21 18:20 18:20 18:20 MCV 88.2 MCH 27.9 MCHC 31.7 RDW 16.5 H Plt Count 212 D MPV 9.4 Immature Gran % (Auto) 1.0 H Neut % (Auto) 67.9 Lymph % (Auto) 15.5 L [place] % (Auto) 11.7 H Eos % (Auto) 3.7 Baso % (Auto) 0.2 Lymph # (Auto) 0.8 L [place] # (Auto) 0.6 Eos # (Auto) 0.2 Baso # (Auto) 0.0 Abs Immat Gran (auto) 0.05 H Absolute Neuts (auto) 3.5 Absolute Nucleated RBC 0.000 Nucleated RBC % (auto) 0.0 PT INR Anion Gap 15 Estim Creat Clear Calc 50.6 Estimated GFR 53 Random Glucose 123 H Lactic Acid Calcium 9.0 D Magnesium 1.8 Total Bilirubin 0.4 AST 21 ALT 10 Alkaline Phosphatase 51 Troponin I High Sens B-Natriuretic Peptide 344 H Total Protein 5.9 L Albumin 3.5 COVID-19 (ESAU) COVID-19 Clin Com 07/29/21 18:20 MCV MCH MCHC RDW Plt Count MPV Immature Gran % (Auto) Neut % (Auto) Lymph % (Auto) [place] % (Auto) Eos % (Auto) Baso % (Auto) Lymph # (Auto) [place] # (Auto) Eos # (Auto) Baso # (Auto) Abs Immat Gran (auto) Absolute Neuts (auto) Absolute Nucleated RBC Nucleated RBC % (auto) PT 18.8 H D INR 1.6 H Anion Gap Estim Creat Clear Calc Estimated GFR Random Glucose Lactic Acid Calcium Magnesium Total Bilirubin AST ALT Alkaline Phosphatase Troponin I High Sens B-Natriuretic Peptide Total Protein Albumin COVID-19 (ESAU) COVID-19 Clin Com Imaging Radiologist's Impressions: Impressions Chest X-Ray 07/29/21 16:37 IMPRESSION: Slight increase in interstitial markings as described above increased retrocardiac opacity with obscuration left hemidiaphragm. A PA inspiratory as well as lateral chest radiograph may be useful for further evaluation as the lung bases, especially on the left, were not included on this radiograph. Chest CT 07/29/21 17:59 IMPRESSION: Commonly reported imaging features of Covid 19 or viral pneumonia are present, which appear slightly improved when compared to the prior CT scan. Other processes such as influenza pneumonia or organizing pneumonia, as can be seen with drug toxicity and connective tissue disease, can cause a similar imaging pattern. Despite the presence of cardiomegaly, the patient's findings are not typical of CHF with pulmonary edema especially given the lack of any pleural effusions. Assessment and Plan (1) Acute respiratory failure with hypoxia: Status: Acute (2) Community acquired pneumonia: Qualifiers: Laterality: unspecified laterality Qualified Code(s): J18.9 - Pneumonia, unspecified organism Status: Acute (3) Cellulitis: Qualifiers: Laterality: left Site of cellulitis: extremity Site of cellulitis of extremity: lower extremity Qualified Code(s): L03.116 - Cellulitis of left lower limb Status: Acute (4) GIN (acute kidney injury): Status: Acute 86-year-old male with extensive past medical history as mentioned above who presents to the hospital with hypoxic respiratory failure found to have pneumonia # acute hypoxic respiratory failure - most likely secondary to pneumonia, viral versus bacterial, no evidence of CHF exacerbation - found to be hypoxic in the 80s, currently on 6 L of oxygen satting 94% - chest CT shows imaging evidence of COVID-19 pneumonia versus other viral pneumonia although patient is COVID NAAT negative - pending respiratory viral panel - patient vaccinated against COVID-19 - at this time will continue oxygen supplement - titrate oxygen as tolerated # community-acquired pneumonia - viral versus bacterial - will start him on IV antibiotic - pending respiratory viral panel - COVID-19 negative # cellulitis - patient has intermittent cellulitis - left lower extremity - patient being treated with IV antibiotics as above - follow cultures # GIN - presents with creatinine of 1.30 with a baseline around 0.9 - will start him on gentle fluid resuscitation given his history of CHF - monitor for volume overload - hold nephrotoxic med - continue furosemide given his history of CHF - follow BMP # HTN - stable - hold valsartan in the setting of GIN # history of PE/DVT - continue Xarelto # gout - hold allopurinol in the setting of GIN # COPD - not appear to be in exacerbation, does not have increased cough or sputum production - continue home inhalers DVT prophylaxis: Xarelto Quality Stroke Does the patient have a stroke diagnosis?: No VTE Prior VTE?: Yes VTE Risk Level:: Medical - moderate - high VTE Device Contraindication: Treatment Not Indicated VTE Drug Contraindication: N/A - Med Ordered
[2021-07-29 21:17] VITALS: BP 152/78; PULSE 88; RESP 24; TEMP 37.6; O2SAT 90
[2021-07-29 21:32] VITALS: TEMP 38.3
--- NOTE | 2021-07-29 21:51 | PC.NURSE ---
this nurse was notified by instrument and electrical techniciandara Rush that pt has rectal temp of 100.9 and 02 sat dropped down to 80% on 3L NC. pt respirations remained unlabored and pts main complaint was being cold. this nurse increased 02 nc to 6L. pt now satting 94% on 6L and remains asymptomatic with no c/o SOB.. hospitalist notified. per hospitalist pt ok to stay on 6L at this time.
[2021-07-29 21:55] VITALS: PULSE 111; RESP 19; O2SAT 94
[2021-07-29] MEDS: Azithromycin 500 MG in 0.9 % Sodium Chloride 250 ML 125 MG IV (22:45)
[2021-07-29] MEDS: Acetaminophen 325 MG TABLET 650 MG PO (22:46)
[2021-07-29] MEDS: traZODone HCL 50 MG TABLET 150 MG PO (22:48)
[2021-07-29] MEDS: Gabapentin 300 MG CAPSULE PO (22:49)
[2021-07-29] MEDS: Gabapentin 100 MG CAPSULE PO (22:49)
--- NOTE | 2021-07-29 23:00 | PC.NURSE ---
nurse to nurse report given to Yi TENORIO
--- NOTE | 2021-07-29 23:04 | PC.NURSE ---
1200 cc urine output since lasix was given
[2021-07-29 23:29] VITALS: BMI 36.8
[2021-07-30] VITALS (9 sets, daily range): BP systolic 97–154; BP diastolic 47–66; PULSE 69–82; RESP 18–20; TEMP 36.2–37.2; O2SAT 4–98
[2021-07-30] MEDS: Omeprazole 40 MG CAPSULE.DR PO ×2 (06:47→17:06)
[2021-07-30] MEDS: 0.9 % Sodium Chloride Flush 3 ML SYRINGE IVFLUSH ×3 (06:47→20:34)
[2021-07-30] MEDS: Lactated Ringers 1,000 ML 80 ML IVCONT (06:48)
[2021-07-30 07:04] LABS: MANUAL DIFF FLAG NO
[2021-07-30 07:12] LABS: Basophils Percent Auto 0.3 % (0-2); Eosinophils Absolute Auto 0.2 X10*3/uL (0.0-0.4); Eosinophils Percent Auto 2.9 % (0-4); Hematocrit 30.3 % (42-52); Hemoglobin 9.7 g/dl (14.0-18.0); Imm Gran Abs Auto 0.04 X10*3/uL (0.00-0.03); Imm Gran Pct Auto 0.6 % (0.0-0.4); Lymphocytes Absolute Auto 0.4 X10*3/uL (1.2-4.9); Lymphocytes Percent Auto 6.6 % (20-40); Mean Corpuscular Volume 87.3 fL (80-98); Mean Platelet Volume 9.9 fL (9.4-12.4); Monocytes Absolute Auto 0.6 X10*3/uL (0.1-1.2); Monocytes Percent Auto 8.4 % (2-11); Neutrophils Absolute Auto 5.4 X10*3/uL (2.0-8.3); Neutrophils Percent Auto 81.2 % (45-73); Platelet Count 203 X10*3/uL (160-400); Red Blood Count 3.47 X10*6/uL (4.60-5.80); Red Cell Distribution Width 16.8 % (11.0-16.0); White Blood Count 6.6 X10*3/uL (4.8-10.8)
[2021-07-30 07:29] LABS: Anion Gap 15 (12-20); Blood Urea Nitrogen 18 mg/dL (9-16); Calcium 8.7 mg/dL (8.4-10.2); Carbon Dioxide 25 mmol/L (22-29); Chloride 104 mmol/L (96-108); Creatinine Clr Calc Pharmacy 60.6; Estimated Glomerular Filt Rate > 60; Glucose Random 95 mg/dL (60-115); Potassium 4.3 mmol/L (3.3-5.1); Sodium 140 mmol/L (135-145)
[2021-07-30 08:00] LABS: Adenovirus PCR Not Detected (Not Detect.); Bordetella parapertussis PCR Not Detected (Not Detect.); Bordetella pertussis PCR Not Detected (Not Detect.); Chlamydia pneumoniae PCR Not Detected (Not Detect.); Coronavirus 229E PCR Not Detected (Not Detect.); Coronavirus HKU1 PCR Not Detected (Not Detect.); Coronavirus NL63 PCR Not Detected (Not Detect.); Coronavirus OC43 PCR Not Detected (Not Detect.); Human metapneumovirus PCR Not Detected (Not Detect.); Influenza A PCR Not Detected (Not Detect.); Influenza B PCR Not Detected (Not Detect.); Mycoplasma pneumoniae PCR Not Detected (Not Detect.); Parainfluenza 1 PCR Not Detected (Not Detect.); Parainfluenza 2 PCR Not Detected (Not Detect.); Parainfluenza 3 PCR Not Detected (Not Detect.); Parainfluenza 4 PCR Not Detected (Not Detect.); RSV PCR Not Detected (Not Detect.); Rhino/Enterovirus PCR Not Detected (Not Detect.); SARS-CoV-2 PCR Not Detected (Not Detect.)
--- NOTE | 2021-07-30 09:19 | MHC.CDI.CONC ---
CDI Concurrent Query Documentation Clarification: PHYSICIAN'S DOCUMENTATION REQUEST Date of Query: 07/30/21918 Patient Name: Leonidas Linder Admit Date: 07/29/21 Dear Doctor, A review of the medical record indicates additional documentation may be needed. Please review below and update the documentation accordingly. Clinical Indicators: The following diagnoses or signs and symptoms were noted in the patient record: Risk Factors/Clinical Indicators/Treatments HR 111 Temp 100.9 RR 24 with pulse ox 91 BP 152/78 IV Azithromycin, Ceftriaxone, IV fluids hypoxic placed on 4 liters oxygen increased to 6 liters for acute respiratory failure. CT chest shows Covid-19 or viral pneumonia vs. bacterial. Also noted patient has cellulitis. Based on the above, could you clarify in the Progress Notes the appropriate diagnosis, if significant, that supports the above abnormalities and additional evaluation, monitoring, and/or treatment rendered: Sepsis POA, treating, ruled out, resolved Viral Sepsis due to Covid-19 pneumonia Sepsis due to bacterial pneumonia Other (please specify) Unable to determine Use of terms such as suspected, likely, concern for, or probable (associated with a specific diagnosis that is being evaluated, monitored, or treated as if it exists) are acceptable and can be coded in the inpatient setting, when documented at the time of discharge. Thank you, Myrtle Tesfaye [facility], [facility]IS Extension: [4-digit phone extension] Please use your independent medical judgment in providing your response. THIS QUERY IS PART OF THE PERMANENT MEDICAL RECORD Provider Response: Other Other Diagnosis: sepsis(POA)
[2021-07-30] MEDS: Acetaminophen 325 MG TABLET 650 MG PO ×2 (11:20→20:33)
[2021-07-30] MEDS: Isosorbide Mononitrate 30 MG TAB.ER.24H PO (11:21)
[2021-07-30] MEDS: Magnesium Oxide 400 MG TABLET PO ×2 (11:22→17:06)
[2021-07-30] MEDS: Escitalopram Oxalate 20 MG TABLET PO (11:22)
[2021-07-30] MEDS: Rivaroxaban 20 MG TABLET PO (11:22)
[2021-07-30] MEDS: Gabapentin 300 MG CAPSULE PO ×3 (11:22→20:34)
[2021-07-30] MEDS: Fenofibrate 160 MG TABLET PO (11:22)
[2021-07-30] MEDS: Furosemide 40 MG TABLET PO (11:23)
[2021-07-30] MEDS: Gabapentin 100 MG CAPSULE PO ×3 (11:23→20:33)
--- NOTE | 2021-07-30 12:08 | MHC.CM.PN ---
met with pt who is [id number] they help with all is mersonal care etc we discussed strn per physical therapy recommendation he has been in arehab in the past and would rather retrun to assited livivng with the physical therapy there he will talk with his dgter and let un know
[2021-07-30] MEDS: Furosemide 40 MG/4 ML VIAL IVPUSH (14:34)
--- NOTE | 2021-07-30 15:23 | HO.PM.IMPN ---
Subjective Subjective Date of Service: 07/30/21 Interval History: Sepsis/pna/cellulitis Review of Systems Shortness of breath slightly better otherwise looks similar to yesterday. Has cough Denies any new complaint of chest pain or shortness of breath or abdominal pain or fever or chills or nausea or vomiting Denies any cough Denies any weakness or numbness. Physical Exam Vital Signs: Vital Signs: Last Vital Signs Temp 98.5 F 07/30/21 11:19 Pulse 76 07/30/21 11:21 Resp 18 07/30/21 11:19 BP 126/56 L 07/30/21 11:21 Pulse Ox 95 07/30/21 11:19 Oxygen Flow Rate 4 07/29/21 15:48 Body Mass Index 36.8 Physical exam: Appearance: Alert.? Oriented X3.? ENT: Pharynx normal.? Moist mucous membranes. cvs: rrr, [id number] , no murmur res: air enrty improving , seems diminshed at bases. abd: no rebound or guarding ,nt, bs present. ext pulses present , no cyanosis ,Gait well balanced well coordinated. neuro: axo3 , nonfocal. Objective Data Active Medications Acetaminophen (Acetaminophen 325 Mg Tablet) 650 mg PO Q6H PRN PRN Reason: Pain, Mild (Pain Scale 1-3) Last Admin: 07/30/21 11:20 Dose: 650 mg Documented by: KEYANA Docusate Sodium (Docusate Sodium 100 Mg Capsule) 100 mg PO DAILY PRN PRN Reason: Constipation Escitalopram Oxalate (Escitalopram Oxalate 20 Mg Tablet) 20 mg PO DAILY [facility] Last Admin: 07/30/21 11:22 Dose: 20 mg Documented by: KEYANA Fenofibrate (Fenofibrate 160 Mg Tablet) 160 mg PO DAILY [facility] Last Admin: 07/30/21 11:22 Dose: 160 mg Documented by: KEYANA Fluticasone/Vilanterol (Fluticasone/Vilanterol 100/25 Blst.W.Dev) 1 puff INHALE DAILY [facility] Last Admin: 07/30/21 07:11 Dose: Not Given Documented by: ADELA Non-Admin Reason: Med Not Available Furosemide (Furosemide 40 Mg Tablet) 40 mg PO DAILY [facility]; Protocol Last Admin: 07/30/21 11:23 Dose: 40 mg Documented by: KEYANA Gabapentin (Gabapentin 100 Mg Capsule) 100 mg PO TID [facility] Last Admin: 07/30/21 14:34 Dose: 100 mg Documented by: KEYANA Gabapentin (Gabapentin 300 Mg Capsule) 300 mg PO TID [facility] Last Admin: 07/30/21 14:34 Dose: 300 mg Documented by: KEYANA Azithromycin 500 mg/ Sodium (Chloride) 250 mls @ 125 mls/hr IV Q24H [facility] Last Infusion: 07/30/21 01:09 Dose: 0 mls/hr Documented by: AMEE Ceftriaxone Sodium 1 gm/ (Sodium Chloride) 50 mls @ 100 mls/hr IV Q24H [facility] Isosorbide Mononitrate (Isosorbide Mononitrate 30 Mg Tab.Er.24h) 30 mg PO DAILY [facility]; Protocol Last Admin: 07/30/21 11:21 Dose: 30 mg Documented by: KEYANA Magnesium Oxide (Magnesium Oxide 400 Mg Tablet) 400 mg PO BIDPC [facility] Last Admin: 07/30/21 11:22 Dose: 400 mg Documented by: KEYANA Omeprazole (Omeprazole 40 Mg Capsule.Dr) 40 mg PO BID@0630,1630 [facility] Last Admin: 07/30/21 06:47 Dose: 40 mg Documented by: KHOA Ondansetron HCl (Ondansetron Hcl 4 Mg/2 Ml Vial) 4 mg IVPUSH Q8H PRN PRN Reason: Nausea and Vomiting Pharmacy Consult (Consult Rx Perform Med Rec) 1 each MISCELLANE ONCE PRN PRN Reason: Consult order Rivaroxaban (Rivaroxaban 20 Mg Tablet) 20 mg PO DAILY [facility] Last Admin: 07/30/21 11:22 Dose: 20 mg Documented by: KEYANA Sodium Chloride (0.9 % Sodium Chloride Flush 3 Ml Syringe) 3 ml IVFLUSH QSHIFT [facility] Last Admin: 07/30/21 06:47 Dose: 3 ml Documented by: KHOA Trazodone HCl (Trazodone Hcl 50 Mg Tablet) 150 mg PO BEDTIME [facility] Last Admin: 07/29/21 22:48 Dose: 150 mg Documented by: SAHRA Labs CBC & Chem 7: 07/30/21 06:29 07/30/21 06:29 Labs: Laboratory Results - last 24 hr 07/29/21 07/29/21 07/29/21 18:19 18:19 18:19 MCV MCH MCHC RDW Plt Count MPV Immature Gran % (Auto) Neut % (Auto) Lymph % (Auto) [place] % (Auto) Eos % (Auto) Baso % (Auto) Lymph # (Auto) [place] # (Auto) Eos # (Auto) Baso # (Auto) Abs Immat Gran (auto) Absolute Neuts (auto) Absolute Nucleated RBC Nucleated RBC % (auto) PT INR Anion Gap Estim Creat Clear Calc Estimated GFR Random Glucose Lactic Acid 1.3 Calcium Magnesium Total Bilirubin AST ALT Alkaline Phosphatase Troponin I High Sens 11.3 B-Natriuretic Peptide Total Protein Albumin Respiratory Panel Clemente Adenovirus (Rapid PCR) B.pert (TEM-PCR) B.parapertussis DNA PCR C. pneumoniae DNA (PCR) Coronavirus OC43 (PCR) Coronavirus HKU1 (PCR) Coronavirus 229E (PCR) COVID-19 (ESAU) Negative COVID-19 Clin Com See Note Coronavirus NL63 (PCR) Human Metapneumovir PCR Influenza A (RT-PCR) Influenza B (RT-PCR) M. pneumoniae (PCR) Parainfluenza 1 (PCR) Parainfluenza 2 (PCR) Parainfluenza 3 (PCR) Parainfluenza 4 (PCR) RSV (PCR) Entero/Rhino (PCR) SARS-CoV-2 RNA (RT-PCR) 07/29/21 07/29/21 07/29/21 18:20 18:20 18:20 MCV 88.2 MCH 27.9 MCHC 31.7 RDW 16.5 H Plt Count 212 D MPV 9.4 Immature Gran % (Auto) 1.0 H Neut % (Auto) 67.9 Lymph % (Auto) 15.5 L [place] % (Auto) 11.7 H Eos % (Auto) 3.7 Baso % (Auto) 0.2 Lymph # (Auto) 0.8 L [place] # (Auto) 0.6 Eos # (Auto) 0.2 Baso # (Auto) 0.0 Abs Immat Gran (auto) 0.05 H Absolute Neuts (auto) 3.5 Absolute Nucleated RBC 0.000 Nucleated RBC % (auto) 0.0 PT INR Anion Gap 15 Estim Creat Clear Calc 50.6 Estimated GFR 53 Random Glucose 123 H Lactic Acid Calcium 9.0 D Magnesium 1.8 Total Bilirubin 0.4 AST 21 ALT 10 Alkaline Phosphatase 51 Troponin I High Sens B-Natriuretic Peptide 344 H Total Protein 5.9 L Albumin 3.5 Respiratory Panel Clemente Adenovirus (Rapid PCR) B.pert (TEM-PCR) B.parapertussis DNA PCR C. pneumoniae DNA (PCR) Coronavirus OC43 (PCR) Coronavirus HKU1 (PCR) Coronavirus 229E (PCR) COVID-19 (ESAU) COVID-19 Clin Com Coronavirus NL63 (PCR) Human Metapneumovir PCR Influenza A (RT-PCR) Influenza B (RT-PCR) M. pneumoniae (PCR) Parainfluenza 1 (PCR) Parainfluenza 2 (PCR) Parainfluenza 3 (PCR) Parainfluenza 4 (PCR) RSV (PCR) Entero/Rhino (PCR) SARS-CoV-2 RNA (RT-PCR) 07/29/21 07/30/21 07/30/21 18:20 06:29 06:29 MCV 87.3 MCH 28.0 MCHC 32.0 RDW 16.8 H Plt Count 203 MPV 9.9 Immature Gran % (Auto) 0.6 H Neut % (Auto) 81.2 H Lymph % (Auto) 6.6 L [place] % (Auto) 8.4 Eos % (Auto) 2.9 Baso % (Auto) 0.3 Lymph # (Auto) 0.4 L [place] # (Auto) 0.6 Eos # (Auto) 0.2 Baso # (Auto) 0.0 Abs Immat Gran (auto) 0.04 H Absolute Neuts (auto) 5.4 Absolute Nucleated RBC 0.000 Nucleated RBC % (auto) 0.0 PT 18.8 H D INR 1.6 H Anion Gap 15 Estim Creat Clear Calc 60.6 Estimated GFR > 60 Random Glucose 95 Lactic Acid Calcium 8.7 Magnesium Total Bilirubin AST ALT Alkaline Phosphatase Troponin I High Sens B-Natriuretic Peptide Total Protein Albumin Respiratory Panel Clemente Adenovirus (Rapid PCR) B.pert (TEM-PCR) B.parapertussis DNA PCR C. pneumoniae DNA (PCR) Coronavirus OC43 (PCR) Coronavirus HKU1 (PCR) Coronavirus 229E (PCR) COVID-19 (ESAU) COVID-19 Clin Com Coronavirus NL63 (PCR) Human Metapneumovir PCR Influenza A (RT-PCR) Influenza B (RT-PCR) M. pneumoniae (PCR) Parainfluenza 1 (PCR) Parainfluenza 2 (PCR) Parainfluenza 3 (PCR) Parainfluenza 4 (PCR) RSV (PCR) Entero/Rhino (PCR) SARS-CoV-2 RNA (RT-PCR) 07/30/21 07:56 MCV MCH MCHC RDW Plt Count MPV Immature Gran % (Auto) Neut % (Auto) Lymph % (Auto) [place] % (Auto) Eos % (Auto) Baso % (Auto) Lymph # (Auto) [place] # (Auto) Eos # (Auto) Baso # (Auto) Abs Immat Gran (auto) Absolute Neuts (auto) Absolute Nucleated RBC Nucleated RBC % (auto) PT INR Anion Gap Estim Creat Clear Calc Estimated GFR Random Glucose Lactic Acid Calcium Magnesium Total Bilirubin AST ALT Alkaline Phosphatase Troponin I High Sens B-Natriuretic Peptide Total Protein Albumin Respiratory Panel Clemente See Note Adenovirus (Rapid PCR) Not Detected B.pert (TEM-PCR) Not Detected B.parapertussis DNA PCR Not Detected C. pneumoniae DNA (PCR) Not Detected Coronavirus OC43 (PCR) Not Detected Coronavirus HKU1 (PCR) Not Detected Coronavirus 229E (PCR) Not Detected COVID-19 (ESAU) COVID-19 Clin Com Coronavirus NL63 (PCR) Not Detected Human Metapneumovir PCR Not Detected Influenza A (RT-PCR) Not Detected Influenza B (RT-PCR) Not Detected M. pneumoniae (PCR) Not Detected Parainfluenza 1 (PCR) Not Detected Parainfluenza 2 (PCR) Not Detected Parainfluenza 3 (PCR) Not Detected Parainfluenza 4 (PCR) Not Detected RSV (PCR) Not Detected Entero/Rhino (PCR) Not Detected SARS-CoV-2 RNA (RT-PCR) Not Detected Assessment and Plan (1) GIN (acute kidney injury): Status: Acute (2) Acute respiratory failure with hypoxia: Status: Acute (3) Community acquired pneumonia: Status: Acute Assessment and Plan: 86-year-old male with extensive past medical history as mentioned above who presents to the hospital with hypoxic respiratory failure found to have pneumonia 1. acute hypoxic respiratory failure- most likely secondary to pneumonia, viral versus bacterial, no evidence of CHF exacerbation. - found to be hypoxic in the 80s, currently on 6 L of oxygen satting 94% chest CT shows imaging evidence of COVID-19 pneumonia versus other viral pneumonia although patient is COVID NAAT negative respiratory viral panel-neg, vaccinated against COVID-19 continue oxygen supplement, titrate oxygen as tolerated pulm korin added 2. community-acquired pneumonia- viral versus bacterial continue him on IV antibiotic 3. cellulitis- patient has intermittent cellulitis left lower extremity continue with IV antibiotics-ceftriaxone/azithromycin day2. - follow cultures 4. GIN- presents with creatinine of 1.30 with a baseline around 0.9 imrpoved near bseline , stop ivf 5.? HTN -? stable -? hold ? 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 gout -? hold allopurinol in the setting of GIN 8. COPD - not appear to be in exacerbation, does not have increased cough or sputum production - continue home inhalers DVT prophylaxis:? Xarelto Quality Stroke Does the patient have a stroke diagnosis?: No VTE Prior VTE?: Yes VTE Risk Level:: Medical - moderate - high VTE Device Contraindication: Treatment Not Indicated VTE Drug Contraindication: N/A - Med Ordered
[2021-07-30] MEDS: cefTRIAXone sodium 1 GM in 0.9 % Sodium Chloride 50 ML IV (20:33)
[2021-07-30] MEDS: traZODone HCL 50 MG TABLET 150 MG PO (20:34)
[2021-07-30] MEDS: Azithromycin 500 MG in 0.9 % Sodium Chloride 250 ML 125 MG IV (21:21)
--- NOTE | 2021-07-30 22:39 | CONS_ITS ---
DATE OF SERVICE: 07/30/2021 INDICATIONS: Shortness of breath and respiratory failure. HISTORY OF PRESENT ILLNESS: Mr. Linder is an 86-year-old gentleman with a complicated past medical history including CHF, COPD, DVT, PE, hypertension, currently residing in assisted living, who apparently was in the usual state of health until recently when he started developing progressive shortness of breath. He has also complained of some increased phlegm production. On the day of the admission, the patient was found to be short of breath while eating lunch. He went home and the nurse came to his side. His exam demonstrated crackles. He was also hypoxic. Therefore, EMS was called to the scene and the patient was brought to the [facility] ER for further evaluation. There, he was placed on 4 L, maintaining a pulse ox of 92%. The patient had a temperature of 100.9, heart rate was 111. His COVID testing was negative. The patient was admitted to the hospital and started therapy for pneumonia. Currently, the patient is on oxygen, he feels a little better. REVIEW OF SYSTEMS: Ten systems reviewed. Denies any fevers or chills. Did have a slight temperature of 100.9. Denies any ENT symptoms. Does complain of the respiratory symptoms as stated above. Denied any cardiac symptoms. Denied any GI or symptoms. Denied any musculoskeletal symptoms. The rest of the 10-organ system is negative. PAST MEDICAL HISTORY: BPH, CHF, COPD, DVT, gout, history of pulmonary emboli, hypertension, hypomagnesemia, hypoxia. FAMILY HISTORY: Positive for heart disease and hypertension. PAST SURGICAL HISTORY: Status post pacemaker placement. MEDICATIONS: At home, he was taking allopurinol, Breo, trazodone, valsartan, Xarelto, omeprazole. In addition to that in the hospital, he has been on azithromycin, gabapentin, trazodone, Breo, Lasix 40 mg p.o. daily, Xarelto, and ceftriaxone. PHYSICAL EXAMINATION: VITAL SIGNS: Stable. Saturating 95% on couple of liters. GENERAL: Pleasant gentleman, in no acute distress. HEENT: Pupils equal and reactive to light. Oropharynx clear. NECK: Supple. LUNGS: Bilateral crackles. Diminished breath sounds. CARDIAC: Regular rhythm and regular rate, little tachycardic. ABDOMEN: Positive bowel sounds. Soft. EXTREMITIES: No clubbing or cyanosis. LABORATORY DATA: Hemoglobin dropped to 9.7, white count is normal at 6.6. Chemistries with a BUN of 18, creatinine was 1.09. Brain natriuretic peptide was elevated at 344. His respiratory viral panel was negative. IMAGING STUDIES: Perceived by me. I did evaluate his CT scan of the chest demonstrating some areas of ground-glass opacities bilaterally, increased cardiac size and significant calcifications of the coronary arteries, to me appears to have some degree of cardiogenic pulmonary edema. In addition to that, he does have some evidence of bronchitis and increased cardiac size. Atypical pneumonia cannot be ruled out at this time. ASSESSMENT: Mr. Linder is an 86-year-old gentleman with a known history of chronic obstructive pulmonary disease in addition to congestive heart failure, presenting with worsening respiratory symptoms. IMPRESSION: 1. Acute hypoxic respiratory failure secondary to worsening V/Q mismatch from the underlying alveolar process. 2. Pulmonary edema. The patient does appear to have some degree of pulmonary edema. I believe he is mainly cardiogenic based on his cardiac size and his cardiac history. His last echocardiogram from June suggested an EF of 50% to 55% with some degree of diastolic dysfunction. Atypical pneumonias are also in differential. Aspiration pneumonitis is potentially less likely. The areas of ground-glass are diffuse throughout. Medication related changes also in differential, although looking at his list of medications, he does not take anything that is concerning. Does not appear to have any hemoptysis to suggest diffuse alveolar hemorrhage. RECOMMENDATIONS: 1. Continue with diuresis as tolerated. We will give him additional Lasix right now. 2. Continue with azithromycin and the ceftriaxone for now to cover atypical organisms. 3. Continue nasal cannula oxygen to maintain a pulse ox above 90%. 4. Repeat chest x-ray after further diuresis. 5. If the patient does not respond to diuresis, he could consider a small dose of corticosteroids. Continue with respiratory therapy. Further recommendations based on forthcoming data. MD JADEN Ken/SEAN / [phone]
[2021-07-31] VITALS (16 sets, daily range): BP systolic 81–165; BP diastolic 50–74; PULSE 65–124; RESP 18–24; TEMP 36.2–37.9; O2SAT 86–96
--- NOTE | 2021-07-31 | ECG_ITS ---
Test Reason : sob Blood Pressure : / mmHG Vent. Rate : 064 BPM Atrial Rate : 063 BPM P-R Int : 192 ms QRS Dur : 198 ms QT Int : 514 ms P-R-T Axes : -33 -70 109 degrees QTc Int : 530 ms Atrial-paced rhythm Left axis deviation Right bundle branch block Abnormal ECG No significant changes seen Referred By: Amber Hugo Electronically Signed By:LEBRON RAMÍREZ MD
[2021-07-31] MEDS: Omeprazole 40 MG CAPSULE.DR PO ×2 (05:36→16:27)
[2021-07-31] MEDS: Rivaroxaban 20 MG TABLET PO (08:07)
[2021-07-31] MEDS: Fenofibrate 160 MG TABLET PO (08:07)
[2021-07-31] MEDS: Gabapentin 100 MG CAPSULE PO ×3 (08:08→21:07)
[2021-07-31] MEDS: Isosorbide Mononitrate 30 MG TAB.ER.24H PO (08:08)
[2021-07-31] MEDS: Magnesium Oxide 400 MG TABLET PO ×2 (08:08→16:27)
[2021-07-31] MEDS: 0.9 % Sodium Chloride Flush 3 ML SYRINGE IVFLUSH ×3 (08:08→19:47)
[2021-07-31] MEDS: Acetaminophen 325 MG TABLET 650 MG PO ×2 (08:08→16:27)
[2021-07-31] MEDS: Gabapentin 300 MG CAPSULE PO ×3 (08:08→21:07)
[2021-07-31] MEDS: Furosemide 40 MG TABLET PO (08:08)
[2021-07-31] MEDS: Escitalopram Oxalate 20 MG TABLET PO (08:08)
[2021-07-31] MEDS: Losartan Potassium 25 MG TABLET PO (09:19)
--- NOTE | 2021-07-31 11:55 | PC.NURSE ---
Skin wound assessment completed. Patient has skin tears to left elbow and left wrist. Cleansed with wound cleanser, Xeroform applied covered with Tegaderm. Patient has healed abrasions on bilateral knees pink scarring. No other skin issues noted at this time.
[2021-07-31] MEDS: Furosemide 40 MG/4 ML VIAL IVPUSH (12:37)
[2021-07-31 13:07] LABS: B Type Natriuretic Peptide 529 pg/mL (<100)
[2021-07-31 13:09] LABS: Anion Gap 14 (12-20); Blood Urea Nitrogen 22 mg/dL (9-16); Calcium 8.7 mg/dL (8.4-10.2); Carbon Dioxide 25 mmol/L (22-29); Chloride 101 mmol/L (96-108); Creatinine Clr Calc Pharmacy 57.4; Estimated Glomerular Filt Rate > 60; Glucose Random 104 mg/dL (60-115); Potassium 4.2 mmol/L (3.3-5.1); Sodium 136 mmol/L (135-145)
--- NOTE | 2021-07-31 14:28 | MHC.CM.PN ---
per rounds pt will be starting on iv lasix ,when dcd pt will go to [facility]
--- NOTE | 2021-07-31 14:40 | HO.PM.IMPN ---
Subjective Subjective Date of Service: 07/31/21 Interval History: CHF, fluctuating blood pressure. Review of Systems Shortness of breath seems slightly better than yesterday Denies any chest pain or cough No fever chills. Physical Exam Vital Signs: Vital Signs: Last Vital Signs Temp 98.1 F 07/31/21 11:38 Pulse 89 07/31/21 12:46 Resp 18 07/31/21 11:38 BP 90/58 L 07/31/21 13:04 Pulse Ox 90 L 07/31/21 13:04 Oxygen Flow Rate 4 07/29/21 15:48 Body Mass Index 36.8 Appearance:comfortable..? ENT: Pharynx normal.? Moist mucous membranes. cvs: rrr, [id number] , no murmur res: air enrty seems slightly improving since yesterday , seems diminshed at bases. abd: no rebound or guarding ,nt, bs present. ext pulses present , no cyanosis ,Gait well balanced well coordinated. neuro: axo3 , nonfocal. Objective Data Active Medications Acetaminophen (Acetaminophen 325 Mg Tablet) 650 mg PO Q6H PRN PRN Reason: Pain, Mild (Pain Scale 1-3) Last Admin: 07/31/21 08:08 Dose: 650 mg Documented by: MELANY Docusate Sodium (Docusate Sodium 100 Mg Capsule) 100 mg PO DAILY PRN PRN Reason: Constipation Escitalopram Oxalate (Escitalopram Oxalate 20 Mg Tablet) 20 mg PO DAILY [facility] Last Admin: 07/31/21 08:08 Dose: 20 mg Documented by: MELANY Fenofibrate (Fenofibrate 160 Mg Tablet) 160 mg PO DAILY [facility] Last Admin: 07/31/21 08:07 Dose: 160 mg Documented by: MELANY Fluticasone/Vilanterol (Fluticasone/Vilanterol 100/25 Blst.W.Dev) 1 puff INHALE DAILY [facility] Last Admin: 07/31/21 09:15 Dose: Not Given Documented by: LINETTE Non-Admin Reason: Med Not Available Furosemide (Furosemide 40 Mg Tablet) 40 mg PO DAILY [facility]; Protocol Last Admin: 07/31/21 08:08 Dose: 40 mg Documented by: MELANY Furosemide (Furosemide 40 Mg/4 Ml Vial) 40 mg IVPUSH Q12H [facility]; Protocol Last Admin: 07/31/21 12:37 Dose: 40 mg Documented by: MELANY Gabapentin (Gabapentin 100 Mg Capsule) 100 mg PO TID [facility] Last Admin: 07/31/21 08:08 Dose: 100 mg Documented by: MELANY Gabapentin (Gabapentin 300 Mg Capsule) 300 mg PO TID [facility] Last Admin: 07/31/21 08:08 Dose: 300 mg Documented by: MELANY Azithromycin 500 mg/ Sodium (Chloride) 250 mls @ 125 mls/hr IV Q24H [facility] Last Infusion: 07/30/21 23:43 Dose: 0 mls/hr Documented by: WINSTON Ceftriaxone Sodium 1 gm/ (Sodium Chloride) 50 mls @ 100 mls/hr IV Q24H [facility] Last Infusion: 07/30/21 21:21 Dose: 0 mls/hr Documented by: WINSTON Isosorbide Mononitrate (Isosorbide Mononitrate 30 Mg Tab.Er.24h) 30 mg PO DAILY [facility]; Protocol Last Admin: 07/31/21 08:08 Dose: 30 mg Documented by: MELANY Losartan Potassium (Losartan Potassium 25 Mg Tablet) 25 mg PO DAILY [facility]; Protocol Last Admin: 07/31/21 09:19 Dose: 25 mg Documented by: MELANY Magnesium Oxide (Magnesium Oxide 400 Mg Tablet) 400 mg PO BIDPC [facility] Last Admin: 07/31/21 08:08 Dose: 400 mg Documented by: MELANY Omeprazole (Omeprazole 40 Mg Capsule.Dr) 40 mg PO BID@0630,1630 [facility] Last Admin: 07/31/21 05:36 Dose: 40 mg Documented by: WINSTON Ondansetron HCl (Ondansetron Hcl 4 Mg/2 Ml Vial) 4 mg IVPUSH Q8H PRN PRN Reason: Nausea and Vomiting Pharmacy Consult (Consult Rx Perform Med Rec) 1 each MISCELLANE ONCE PRN PRN Reason: Consult order Rivaroxaban (Rivaroxaban 20 Mg Tablet) 20 mg PO DAILY [facility] Last Admin: 07/31/21 08:07 Dose: 20 mg Documented by: MELANY Sodium Chloride (0.9 % Sodium Chloride Flush 3 Ml Syringe) 3 ml IVFLUSH QSHIFT [facility] Last Admin: 07/31/21 08:08 Dose: 3 ml Documented by: MELANY Trazodone HCl (Trazodone Hcl 50 Mg Tablet) 150 mg PO BEDTIME [facility] Last Admin: 07/30/21 20:34 Dose: 150 mg Documented by: WINSTON Labs CBC & Chem 7: 07/30/21 06:29 07/31/21 12:32 Labs: Laboratory Results - last 24 hr 07/31/21 07/31/21 12:32 12:32 Anion Gap 14 Estim Creat Clear Calc 57.4 Estimated GFR > 60 Random Glucose 104 Calcium 8.7 B-Natriuretic Peptide 529 H Microbiology Microbiology Results: Microbiology 07/29/21 18:39 Blood Culture - Preliminary Blood - Venous No growth after 24 hours. 07/29/21 18:19 Blood Culture - Preliminary Blood - Venous No growth after 24 hours. Assessment and Plan (1) Acute respiratory failure with hypoxia: Status: Acute (2) Community acquired pneumonia: Status: Acute Assessment and Plan: 86-year-old male with extensive past medical history as mentioned above who presents to the hospital with hypoxic respiratory failure found to have pneumonia 1. acute hypoxic respiratory failure- most likely secondary to pneumonia, viral versus bacterial, no evidence of CHF exacerbation. - found to be hypoxic in the 80s, currently on 6 L of oxygen satting 94% ?chest CT shows imaging evidence of COVID-19 pneumonia versus other viral pneumonia although patient is COVID NAAT negative ?respiratory viral panel-neg, vaccinated against COVID-19 continue oxygen supplement, titrate oxygen as tolerated pulalma langley noted: probable diastolic chf excerebation: given iv lasix yesterday and today-blood pressure is on the softer side will hold IV Lasix for now. 2. community-acquired pneumonia- viral versus bacterial continue? him on IV antibiotic 3. cellulitis- patient has intermittent cellulitis ?left lower extremity continue? with IV antibiotics-ceftriaxone/azithromycin day2. - follow cultures 4. GIN- presents with creatinine of 1.30 with a baseline around 0.9 seems near baseline 5.? HTN : Hold BP medications due to softer blood pressure. 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 gout -? hold allopurinol in the setting of GIN 8. COPD - not appear to be in exacerbation, does not have increased cough or sputum production - continue home inhalers DVT prophylaxis:? Xarelto Quality Stroke Does the patient have a stroke diagnosis?: No VTE Prior VTE?: Yes VTE Risk Level:: Medical - moderate - high VTE Device Contraindication: Treatment Not Indicated VTE Drug Contraindication: N/A - Med Ordered
[2021-07-31 18:12] LABS: Venous Blood Gas Refer to POC result
--- NOTE | 2021-07-31 18:12 | W.PM.CCCN ---
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 and therefore also on Xarelto who apparently is not in acute distress lying still but any movement he gets significantly dyspneic He lives in an assisted living situation so he is always surrounded by somebody who is ill but he disc claims productive cough any disc claims fever and chills Bedside echo shows that he has preserved systolic function he does not even have significant septal paradox ejection fraction appears to be approximately 60% with normal end systolic volume and normal right ventricle and no primary valve or pericardial disease No use of accessory muscles no diaphragmatic effort no wheezing He does not know of any exposure to pets of any sort including birds and his medication list does not include anything prominent veno for hypersensitivity pneumonitis as a reaction other than the cephalosporin that he is placed on because apparently he has got allergies to penicillin and sulfa and quinolones Review of Systems Review of Systems: Ten point review of systems negative outside of exertional dyspnea Yes all other systems are reviewed and are negative PMFSH Past Medical History Medical History (Updated 08/01/21 @ 09:00 by Willie Monsivais MD) Atrial fibrillation BPH (benign prostatic hyperplasia) CHF (congestive heart failure) COPD (chronic obstructive pulmonary disease) Diastolic CHF DVT (deep venous thrombosis) Gout History of pulmonary embolism HTN (hypertension) Hypomagnesemia Hypoxia Presence of permanent cardiac pacemaker Stasis dermatitis Family History Family History Other HTN (hypertension) Heart disease Surgical History Surgical History Status post placement of cardiac pacemaker Social History Social History Household Members: None Housing: Assisted Living Facility Do you presently have visiting nurse or other home services: Yes Alcohol intake: never Patient Tobacco Use Status: Former Tobacco user Use of substances other than those prescribed or required for medical reasons: No Currently Displaying Signs/Symptoms of Drug Intoxication Withdrawal: No Advance Directives: Yes Advance Directives on File: Yes Advance Directives Date on File: 07/13/21 Do you have thoughts of harming others: None Do you have a plan to hurt others: No Plan Recently lost weight without trying: No Nutrition Risks: No Nutritional Risk Poor oral hygiene: No service: No Current occupational status: retired Meds Allergies Allergy/AdvReac Type Severity Reaction Status Date / Time levofloxacin [LEVOFLOXACIN] Allergy Severe HYPOTENSION Verified 06/24/21 00:47 Penicillins [PCN] Allergy Severe DIFFICULTY Verified 06/24/21 00:47 BREATHING,RASH penicillin V Allergy Unknown sob/rash Verified 06/24/21 00:47 quinine [QUININE] Allergy Unknown UNKNOWN, ? Verified 06/24/21 00:47 Sulfa (Sulfonamide Allergy Unknown UNSURE Verified 06/24/21 00:47 Antibiotics) [SULFA(SULFONAMIDE ANTIBIOTICS)] morphine [MORPHINE] AdvReac Intermediate HYPOTENSION Verified 06/24/21 00:47 MUSCLE RELAXERS Allergy Severe RASH/IMMOBI Uncoded 06/28/20 14:48 LITY Active Medications: Current Medications Acetaminophen (Acetaminophen 325 Mg Tablet) 650 mg PO Q6H PRN PRN Reason: Pain, Mild (Pain Scale 1-3) Last Admin: 07/31/21 16:27 Dose: 650 mg Documented by: Digoxin (Digoxin 0.5 Mg/2 Ml Ampul) 0.25 mg IVPUSH ONCE ONE Stop: 07/31/21 18:07 Docusate Sodium (Docusate Sodium 100 Mg Capsule) 100 mg PO DAILY PRN PRN Reason: Constipation Fluticasone/Vilanterol (Fluticasone/Vilanterol 100/25 Blst.W.Dev) 1 puff INHALE DAILY [facility] Last Admin: 07/31/21 09:15 Dose: Not Given Documented by: Gabapentin (Gabapentin 100 Mg Capsule) 100 mg PO TID MACIEJ Last Admin: 07/31/21 16:27 Dose: 100 mg Documented by: Gabapentin (Gabapentin 300 Mg Capsule) 300 mg PO TID [facility] Last Admin: 07/31/21 16:27 Dose: 300 mg Documented by: Methylprednisolone Sodium Succinate 1,000 mg/ Sodium Chloride 66 mls @ 66 mls/hr IV ONCE ONE Stop: 07/31/21 19:05 Losartan Potassium (Losartan Potassium 25 Mg Tablet) 25 mg PO DAILY [facility]; Protocol Last Admin: 07/31/21 09:19 Dose: 25 mg Documented by: Magnesium Oxide (Magnesium Oxide 400 Mg Tablet) 400 mg PO BIDPC [facility] Last Admin: 07/31/21 16:27 Dose: 400 mg Documented by: Omeprazole (Omeprazole 40 Mg Capsule.) 40 mg PO BID@0630,1630 [facility] Last Admin: 07/31/21 16:27 Dose: 40 mg Documented by: Pharmacy Consult (Consult Rx Perform Med Rec) 1 each MISCELLANE ONCE PRN PRN Reason: Consult order Rivaroxaban (Rivaroxaban 20 Mg Tablet) 20 mg PO DAILY [facility] Last Admin: 07/31/21 08:07 Dose: 20 mg Documented by: Sodium Chloride (0.9 % Sodium Chloride Flush 3 Ml Syringe) 3 ml IVFLUSH QSHIFT [facility] Last Admin: 07/31/21 16:27 Dose: 3 ml Documented by: Trazodone HCl (Trazodone Hcl 50 Mg Tablet) 150 mg PO BEDTIME [facility] Last Admin: 07/30/21 20:34 Dose: 150 mg Documented by: Home Medications Medication Instructions Recorded Confirmed Last Taken Type allopurinol 300 mg tablet 1 tab PO DAILY 06/21/21 07/29/21 06/21/21 History escitalopram oxalate 20 mg tablet 1 tab PO DAILY 06/21/21 07/29/21 06/21/21 History fenofibrate 160 mg tablet 1 tab PO DAILY 06/21/21 07/29/21 06/21/21 History fluticasone furoate 100 1 puff INHALATION DAILY 06/21/21 07/29/21 06/21/21 History mcg-vilanterol 25 mcg/dose inhalation powder (Breo Ellipta) furosemide 20 mg tablet 2 tab PO DAILY 06/21/21 07/29/21 06/21/21 History gabapentin 100 mg capsule 1 cap PO TID 06/21/21 07/29/21 06/21/21 History gabapentin 300 mg capsule 1 cap PO TID 06/21/21 07/29/21 06/21/21 History omeprazole 40 mg capsule,delayed 1 cap PO BID 06/21/21 07/29/21 06/21/21 History release rivaroxaban 20 mg tablet (Xarelto) 1 tab PO DAILY 06/21/21 07/29/21 06/21/21 History tamsulosin 0.4 mg capsule 1 cap PO DAILY 06/21/21 07/29/21 06/21/21 History valsartan 40 mg tablet 1 tab PO DAILY 06/21/21 07/29/21 06/21/21 History trazodone 150 mg tablet 1 tab PO BEDTIME 07/29/21 07/29/21 Unknown History Physical Exam Vital Signs: Vital Signs: Last Vital Signs Temp 97.2 F 07/31/21 18:08 Pulse 124 H 07/31/21 18:08 Resp 24 H 07/31/21 18:08 BP 81/53 L 07/31/21 18:08 Pulse Ox 92 07/31/21 18:08 Oxygen Flow Rate 4 07/29/21 15:48 Body Mass Index 36.8 Awake and alert and oriented x3 and nonfocal neurologically Bilateral stasis dermatitis but no significant edema and no cellulitis No prominence to neck veins an adequate bilateral carotid upstrokes Abdomen soft with good bowel sounds and no organomegaly Chest without adventitious sounds Results Labs CBC & Chem 7: 07/30/21 06:29 08/01/21 07:30 Labs: BMP 07/31/21 12:32 Sodium 136 Potassium 4.2 Chloride 101 Carbon Dioxide 25 BUN 22 H Creatinine 1.15 Calcium 8.7 Microbiology Microbiology Results: Microbiology 07/29/21 18:39 Blood - Venous Blood Culture - Preliminary No growth after 24 hours. 07/29/21 18:19 Blood - Venous Blood Culture - Preliminary No growth after 24 hours. Assessment and Plan (1) GIN (acute kidney injury): Status: Acute (2) Acute respiratory failure with hypoxia: Status: Acute (3) Community acquired pneumonia: Qualifiers: Laterality: unspecified laterality Qualified Code(s): J18.9 - Pneumonia, unspecified organism Status: Acute (4) Hypoxia: Status: Acute (5) Stasis dermatitis: Status: Acute (6) Atrial fibrillation: Status: Acute (7) Presence of permanent cardiac pacemaker: Status: Acute (8) Diastolic CHF: Status: Acute At this point I would not diurese any further I can not differentiate at this point whether this is a viral or atypical bacterial pneumonia for which I would simply maintain doxycycline but definitely no cephalosporins in case he is reacting to that and will send off a sed rate and along with collagen vascular workup to see if this is a vasculitic presentation even though there is no acute rash or arthritis issue and if the sed rate is elevated I clearly will treat him with pulsed steroids but the inappropriate vasodilators which serve no purpose such as the isosorbide needs to be discontinued withhold any further diuresing would not replenish fluid I think ill spontaneously recover as heart rate comes down stroke volume will improve if it does not happen naturally then I would do it with digoxin and I could the no gently load him on a p.r.n. basis Right now does not need on inotropic or pressor support so I would keep him up stairs follow chest x-ray serially and given that his sed rate came back at 100 it makes this very suspicious for potential hypersensitivity pneumonitis so will start with just a steroid pulse dose for 3 days
[2021-07-31 18:13] LABS: VBG Base Excess 3.2 mmol/L; VBG HCO3 25 mmol/L (22-26); VBG pCO2 32 mmHg; VBG pO2 50 mmHg
[2021-07-31 18:56] LABS: Venous Blood Gas Refer to POC result
[2021-07-31 18:57] LABS: VBG HCO3 26 mmol/L (22-26); VBG pCO2 32 mmHg; VBG pH 7.52 (7.32-7.43); VBG pO2 71 mmHg
[2021-07-31 19:21] LABS: Rheumatoid Factor < 15.0 IU/mL (<15.0)
[2021-07-31 19:39] LABS: Erythrocyte Sedimentation Rate 100 MM/HR (0-15)
[2021-07-31] MEDS: methylPREDNISolone Sod Succ 1,000 MG in 0.9 % Sodium Chloride 50 ML 66 MG IV (19:47)
[2021-07-31] MEDS: Doxycycline Hyclate 100 MG in 0.9 % Sodium Chloride 250 ML 166.67 MG IV (21:07)
[2021-07-31 21:39] LABS: Troponin-I High Sensitivity 59.5 ng/L (<3.5-35.0)
[2021-07-31] MEDS: Digoxin 0.5 MG/2 ML AMPUL 0.25 MG IVPUSH (21:49)
[2021-08-01] VITALS (14 sets, daily range): BP systolic 139–184; BP diastolic 70–90; PULSE 60–81; RESP 18–20; TEMP 35.2–36.7; O2SAT 91–96
[2021-08-01 04:33] LABS: Troponin-I High Sensitivity 35.9 ng/L (<3.5-35.0)
[2021-08-01 05:33] LABS: Lactic Acid 1.2 mmol/L (0.5-2.0)
[2021-08-01] MEDS: Omeprazole 40 MG CAPSULE.DR PO ×2 (05:39→16:34)
[2021-08-01 05:40] LABS: B Type Natriuretic Peptide 523 pg/mL (<100)
[2021-08-01 05:53] LABS: Anion Gap 13 (12-20); Blood Urea Nitrogen 26 mg/dL (9-16); Calcium 9.1 mg/dL (8.4-10.2); Carbon Dioxide 28 mmol/L (22-29); Chloride 103 mmol/L (96-108); Creatinine Clr Calc Pharmacy 60.6; Estimated Glomerular Filt Rate > 60; Glucose Random 182 mg/dL (60-115); Potassium 4.3 mmol/L (3.3-5.1); Sodium 140 mmol/L (135-145)
[2021-08-01 07:42] LABS: VBG Base Excess 4.2 mmol/L; VBG HCO3 28 mmol/L (22-26); VBG pCO2 38 mmHg; VBG pH 7.47 (7.32-7.43); VBG pO2 72 mmHg
[2021-08-01 07:44] LABS: Venous Blood Gas Refer to POC result
[2021-08-01 08:07] LABS: Alanine Aminotransferase 11 U/L (0-40); Albumin Level 3.4 g/dL (3.5-5.0); Alkaline Phosphatase 55 U/L (39-117); Anion Gap 13 (12-20); Aspartate Amino Transferase 21 U/L (5-37); Bilirubin Total 0.6 mg/dL (0.0-1.0); Blood Urea Nitrogen 26 mg/dL (9-16); Calcium 9.1 mg/dL (8.4-10.2); Carbon Dioxide 27 mmol/L (22-29); Chloride 103 mmol/L (96-108); Creatinine Clr Calc Pharmacy 66.1; Estimated Glomerular Filt Rate > 60; Glucose Random 170 mg/dL (60-115); Potassium 4.2 mmol/L (3.3-5.1); Sodium 139 mmol/L (135-145); Total Protein 5.9 g/dL (6.5-8.0)
[2021-08-01] MEDS: Gabapentin 100 MG CAPSULE PO ×3 (08:24→21:18)
[2021-08-01] MEDS: Losartan Potassium 25 MG TABLET PO (08:24)
[2021-08-01] MEDS: Rivaroxaban 20 MG TABLET PO (08:25)
[2021-08-01] MEDS: Doxycycline Hyclate 100 MG in 0.9 % Sodium Chloride 250 ML 166.67 MG IV ×2 (08:25→19:20)
[2021-08-01] MEDS: Gabapentin 300 MG CAPSULE PO ×3 (08:25→21:18)
[2021-08-01] MEDS: Magnesium Oxide 400 MG TABLET PO ×2 (08:25→18:13)
[2021-08-01] MEDS: 0.9 % Sodium Chloride Flush 3 ML SYRINGE IVFLUSH ×4 (08:26→19:21)
[2021-08-01] MEDS: methylPREDNISolone Sod Succ 1,000 MG in 0.9 % Sodium Chloride 50 ML 66 MG IV (09:07)
--- NOTE | 2021-08-01 10:42 | PM.CNCAR ---
History of Present Illness History of Present Illness Date of Service: 08/01/21 Chief complaint: PNA, Hypoxic resp failure Narrative: This is a cardiology consultation regarding possible congestive heart failure. Recently seen 2 weeks ago. For the consultation, remote stent many years ago but details are not available. Also has a permanent pacemaker. Previously patient of [facility] but not clear if he actually follows up at night. Multiple diagnoses including COPD, congestive heart failure, DVT/PE. This hospitalization is again for shortness of breath over the last week. He states that he was actually doing okay after her discharge last time but then started again feeling short of breath leading to this hospitalization. He denies any significant leg swelling to me. However, per H&P lower extremities have been swollen for years and also has recurrent chronic cellulitis. He was again noted to be hypoxic upon presentation and on supplemental oxygen. Other findings like some low-grade temperature as well. We have been asked see him for possible congestive heart failure. Currently states that he feels actually better than on arrival. No anginal-type symptoms. Otherwise doing okay. Review of Systems Review of Systems: Yes all other systems are reviewed and are negative Cardiovascular: Cardiovascular: Reports as per HPI, Reports no additional cardiovascular complaints, Denies acrocyanosis, Denies cool extremities, Denies painful fingertips, Denies chest pain, Denies chest pain at rest, Denies diaphoresis, Denies syncope, Denies irregular heart rhythm, Denies claudication, Denies leg edema, Denies lightheadedness, Denies palpitations and Reports dyspnea Respiratory: Respiratory: Reports dyspnea Neurologic: Denies syncope Endocrine: Endocrine: Denies palpitations [facility] Past Medical History Medical History (Updated 08/01/21 @ 10:51 by Demetrio Bekcer MD) Atrial fibrillation BPH (benign prostatic hyperplasia) CHF (congestive heart failure) COPD (chronic obstructive pulmonary disease) Diastolic CHF DVT (deep venous thrombosis) Gout History of pulmonary embolism HTN (hypertension) Hypomagnesemia Hypoxia Presence of permanent cardiac pacemaker Stasis dermatitis Family History Family History Other HTN (hypertension) Heart disease Surgical History Surgical History Status post placement of cardiac pacemaker Social History Social History Household Members: None Housing: Assisted Living Facility Do you presently have visiting nurse or other home services: Yes Alcohol intake: never Patient Tobacco Use Status: Former Tobacco user Use of substances other than those prescribed or required for medical reasons: No Currently Displaying Signs/Symptoms of Drug Intoxication Withdrawal: No Advance Directives: Yes Advance Directives on File: Yes Advance Directives Date on File: 07/13/21 Do you have thoughts of harming others: None Do you have a plan to hurt others: No Plan Recently lost weight without trying: No Nutrition Risks: No Nutritional Risk Poor oral hygiene: No service: No Current occupational status: retired Meds Allergies Allergy/AdvReac Type Severity Reaction Status Date / Time levofloxacin [LEVOFLOXACIN] Allergy Severe HYPOTENSION Verified 06/24/21 00:47 Penicillins [PCN] Allergy Severe DIFFICULTY Verified 06/24/21 00:47 BREATHING,RASH penicillin V Allergy Unknown sob/rash Verified 06/24/21 00:47 quinine [QUININE] Allergy Unknown UNKNOWN, ? Verified 06/24/21 00:47 Sulfa (Sulfonamide Allergy Unknown UNSURE Verified 06/24/21 00:47 Antibiotics) [SULFA(SULFONAMIDE ANTIBIOTICS)] morphine [MORPHINE] AdvReac Intermediate HYPOTENSION Verified 06/24/21 00:47 MUSCLE RELAXERS Allergy Severe RASH/IMMOBI Uncoded 06/28/20 14:48 LITY Active Medications: Current Medications Acetaminophen (Acetaminophen 325 Mg Tablet) 650 mg PO Q6H PRN PRN Reason: Pain, Mild (Pain Scale 1-3) Last Admin: 07/31/21 16:27 Dose: 650 mg Documented by: Docusate Sodium (Docusate Sodium 100 Mg Capsule) 100 mg PO DAILY PRN PRN Reason: Constipation Fluticasone/Vilanterol (Fluticasone/Vilanterol 100/25 Blst.W.Dev) 1 puff INHALE DAILY [facility] Last Admin: 08/01/21 07:46 Dose: Not Given Documented by: Gabapentin (Gabapentin 100 Mg Capsule) 100 mg PO TID [facility] Last Admin: 08/01/21 08:24 Dose: 100 mg Documented by: Gabapentin (Gabapentin 300 Mg Capsule) 300 mg PO TID [facility] Last Admin: 08/01/21 08:25 Dose: 300 mg Documented by: Doxycycline Hyclate 100 mg/ (Sodium Chloride) 250 mls @ 166.67 mls/hr IV Q12H [facility] Last Admin: 08/01/21 08:25 Dose: 166.67 mls/hr Documented by: Losartan Potassium (Losartan Potassium 25 Mg Tablet) 25 mg PO DAILY [facility]; Protocol Last Admin: 08/01/21 08:24 Dose: 25 mg Documented by: Magnesium Oxide (Magnesium Oxide 400 Mg Tablet) 400 mg PO BIDPC [facility] Last Admin: 08/01/21 08:25 Dose: 400 mg Documented by: Omeprazole (Omeprazole 40 Mg Capsule.Dr) 40 mg PO BID@0630,1630 [facility] Last Admin: 08/01/21 05:39 Dose: 40 mg Documented by: Pharmacy Consult (Consult Rx Perform Med Rec) 1 each MISCELLANE ONCE PRN PRN Reason: Consult order Rivaroxaban (Rivaroxaban 20 Mg Tablet) 20 mg PO DAILY [facility] Last Admin: 08/01/21 08:25 Dose: 20 mg Documented by: Sodium Chloride (0.9 % Sodium Chloride Flush 3 Ml Syringe) 3 ml IVFLUSH QSHIFT [facility] Last Admin: 08/01/21 08:26 Dose: 3 ml Documented by: Trazodone HCl (Trazodone Hcl 50 Mg Tablet) 150 mg PO BEDTIME [facility] Last Admin: 07/31/21 21:17 Dose: Not Given Documented by: Home Medications Medication Instructions Recorded Confirmed Last Taken Type allopurinol 300 mg tablet 1 tab PO DAILY 06/21/21 07/29/21 06/21/21 History escitalopram oxalate 20 mg tablet 1 tab PO DAILY 06/21/21 07/29/21 06/21/21 History fenofibrate 160 mg tablet 1 tab PO DAILY 06/21/21 07/29/21 06/21/21 History fluticasone furoate 100 1 puff INHALATION DAILY 06/21/21 07/29/21 06/21/21 History mcg-vilanterol 25 mcg/dose inhalation powder (Breo Ellipta) furosemide 20 mg tablet 2 tab PO DAILY 06/21/21 07/29/21 06/21/21 History gabapentin 100 mg capsule 1 cap PO TID 06/21/21 07/29/21 06/21/21 History gabapentin 300 mg capsule 1 cap PO TID 06/21/21 07/29/21 06/21/21 History omeprazole 40 mg capsule,delayed 1 cap PO BID 06/21/21 07/29/21 06/21/21 History release rivaroxaban 20 mg tablet (Xarelto) 1 tab PO DAILY 06/21/21 07/29/21 06/21/21 History tamsulosin 0.4 mg capsule 1 cap PO DAILY 06/21/21 07/29/21 06/21/21 History valsartan 40 mg tablet 1 tab PO DAILY 06/21/21 07/29/21 06/21/21 History trazodone 150 mg tablet 1 tab PO BEDTIME 07/29/21 07/29/21 Unknown History Physical Exam Vital Signs: Vital Signs: Last Vital Signs Temp 97.4 F 08/01/21 07:26 Pulse 60 08/01/21 10:19 Resp 18 08/01/21 07:26 BP 162/70 H 08/01/21 10:19 Pulse Ox 95 08/01/21 07:26 Oxygen Flow Rate 4 07/29/21 15:48 Body Mass Index 36.8 Const: General: cooperative and no acute distress HENMT: Other: Unremarkable Neck: Neck: Yes normal visual inspection Chest: Chest palpation & inspection: normal inspection of the chest Resp: Auscultation: crackles (few inspiratory crackles) Cardio: Jugular venous distension: no JVD Palpation: normal PMI Heart sounds: S1 normal heart sound present, S2 normal heart sound present, no gallops, no murmurs and no rubs GI: Palpation (GI): Soft to palpation Back/Spine/Pelvis: Other: unremarkable Skin: General skin exam: no rashes or lesions noted Neuro: Cranial nerves: Yes Other cranial nerve findings present Extrem: General: Yes no clubbing, cyanosis or edema Psych: Mental Status: other Results Labs and Meds Result diagrams: 07/30/21 06:29 08/01/21 07:30 Lab results: Laboratory Results - last 24 hr 07/31/21 07/31/21 07/31/21 12:32 12:32 18:08 ESR VBG pH 7.50 H VBG pCO2 32 VBG pO2 50 VBG HCO3 25 VBG O2 Saturation 78.0 VBG Base Excess 3.2 Sodium 136 Potassium 4.2 Chloride 101 Carbon Dioxide 25 Anion Gap 14 BUN 22 H Creatinine 1.15 Estim Creat Clear Calc 57.4 Estimated GFR > 60 Random Glucose 104 Lactic Acid Calcium 8.7 Total Bilirubin AST ALT Alkaline Phosphatase Troponin I High Sens B-Natriuretic Peptide 529 H Total Protein Albumin Rheumatoid Factor 07/31/21 07/31/21 07/31/21 18:47 18:47 18:51 ESR 100 H VBG pH 7.52 H VBG pCO2 32 VBG pO2 71 VBG HCO3 26 VBG O2 Saturation 93.0 VBG Base Excess TNP Sodium Potassium Chloride Carbon Dioxide Anion Gap BUN Creatinine Estim Creat Clear Calc Estimated GFR Random Glucose Lactic Acid Calcium Total Bilirubin AST ALT Alkaline Phosphatase Troponin I High Sens B-Natriuretic Peptide Total Protein Albumin Rheumatoid Factor < 15.0 07/31/21 08/01/21 08/01/21 20:59 00:12 05:12 ESR VBG pH VBG pCO2 VBG pO2 VBG HCO3 VBG O2 Saturation VBG Base Excess Sodium 140 Potassium 4.3 Chloride 103 Carbon Dioxide 28 Anion Gap 13 BUN 26 H Creatinine 1.09 Estim Creat Clear Calc 60.6 Estimated GFR > 60 Random Glucose 182 H D Lactic Acid Calcium 9.1 Total Bilirubin AST ALT Alkaline Phosphatase Troponin I High Sens 59.5 H* D 35.9 H* B-Natriuretic Peptide Total Protein Albumin Rheumatoid Factor 08/01/21 08/01/21 08/01/21 05:12 05:12 07:30 ESR VBG pH VBG pCO2 VBG pO2 VBG HCO3 VBG O2 Saturation VBG Base Excess Sodium 139 Potassium 4.2 Chloride 103 Carbon Dioxide 27 Anion Gap 13 BUN 26 H Creatinine 1.00 Estim Creat Clear Calc 66.1 Estimated GFR > 60 Random Glucose 170 H Lactic Acid 1.2 Calcium 9.1 Total Bilirubin 0.6 AST 21 ALT 11 Alkaline Phosphatase 55 Troponin I High Sens B-Natriuretic Peptide 523 H Total Protein 5.9 L Albumin 3.4 L Rheumatoid Factor 08/01/21 07:37 ESR VBG pH 7.47 H VBG pCO2 38 VBG pO2 72 VBG HCO3 28 H VBG O2 Saturation 92.0 VBG Base Excess 4.2 Sodium Potassium Chloride Carbon Dioxide Anion Gap BUN Creatinine Estim Creat Clear Calc Estimated GFR Random Glucose Lactic Acid Calcium Total Bilirubin AST ALT Alkaline Phosphatase Troponin I High Sens B-Natriuretic Peptide Total Protein Albumin Rheumatoid Factor ECG Interpretation: EKG shows dual-chamber, A-V pacing. 64/min. Imaging Radiologist's impression: Impressions Chest X-Ray 08/01/21 07:45 IMPRESSION: Continued bilateral interstitial and airspace disease with improvement in right lung disease since previous study. Assessment and Plan (1) Acute on chronic diastolic (congestive) heart failure: Status: Acute (2) Acute respiratory failure with hypoxia: Status: Acute Pertinent data reviewed. Cardiac BNP this admission essentially similar to previous values. Today it is 523. Slight elevation of high sensitivity troponins. Chest CT scan reported to have improvement in multifocal ground-glass opacities seen throughout both lungs and thought to have rather COVID-19 features than heart failure. In today's chest x-ray, reported to have continued bilateral interstitial and airspace disease with improvement in right lung disease since last study. Echocardiogram with LVEF of 55%. Right ventricular size and function was also reported to be normal. Overall, radiology findings rather reflect pulmonary related findings rather than acute heart failure. Cannot certainly exclude any component of diastolic heart failure in this setting and hence empiric diuretics can be tried as needed. Based on the med data, he had received IV Lasix yesterday. Continue for another day or so; then oral diuretics. Procedures Date of Service Date of Service: 08/01/21
[2021-08-01] MEDS: Acetaminophen 325 MG TABLET 650 MG PO ×2 (12:14→19:20)
--- NOTE | 2021-08-01 12:39 | PM.PNPUL ---
Subjective Subjective Date of Service: 08/01/21 Interval history: The patient was seen on exam. Overall the patient is doing about the same. He did require additional oxygen but then was able to be decreased down to 5 L again. He was evaluated by intensive care. They recommended 1 dose of Solu-Medrol 1 gm. Objective Data Labs CBC & Chem 7: 07/30/21 06:29 08/01/21 07:30 Labs: Laboratory Results - last 24 hr 07/31/21 07/31/21 07/31/21 12:32 12:32 18:08 ESR VBG pH 7.50 H VBG pCO2 32 VBG pO2 50 VBG HCO3 25 VBG O2 Saturation 78.0 VBG Base Excess 3.2 Sodium 136 Potassium 4.2 Chloride 101 Carbon Dioxide 25 Anion Gap 14 BUN 22 H Creatinine 1.15 Estim Creat Clear Calc 57.4 Estimated GFR > 60 Random Glucose 104 Lactic Acid Calcium 8.7 Total Bilirubin AST ALT Alkaline Phosphatase Troponin I High Sens B-Natriuretic Peptide 529 H Total Protein Albumin Rheumatoid Factor 07/31/21 07/31/21 07/31/21 18:47 18:47 18:51 ESR 100 H VBG pH 7.52 H VBG pCO2 32 VBG pO2 71 VBG HCO3 26 VBG O2 Saturation 93.0 VBG Base Excess TNP Sodium Potassium Chloride Carbon Dioxide Anion Gap BUN Creatinine Estim Creat Clear Calc Estimated GFR Random Glucose Lactic Acid Calcium Total Bilirubin AST ALT Alkaline Phosphatase Troponin I High Sens B-Natriuretic Peptide Total Protein Albumin Rheumatoid Factor < 15.0 07/31/21 08/01/21 08/01/21 20:59 00:12 05:12 ESR VBG pH VBG pCO2 VBG pO2 VBG HCO3 VBG O2 Saturation VBG Base Excess Sodium 140 Potassium 4.3 Chloride 103 Carbon Dioxide 28 Anion Gap 13 BUN 26 H Creatinine 1.09 Estim Creat Clear Calc 60.6 Estimated GFR > 60 Random Glucose 182 H D Lactic Acid Calcium 9.1 Total Bilirubin AST ALT Alkaline Phosphatase Troponin I High Sens 59.5 H* D 35.9 H* B-Natriuretic Peptide Total Protein Albumin Rheumatoid Factor 08/01/21 08/01/21 08/01/21 05:12 05:12 07:30 ESR VBG pH VBG pCO2 VBG pO2 VBG HCO3 VBG O2 Saturation VBG Base Excess Sodium 139 Potassium 4.2 Chloride 103 Carbon Dioxide 27 Anion Gap 13 BUN 26 H Creatinine 1.00 Estim Creat Clear Calc 66.1 Estimated GFR > 60 Random Glucose 170 H Lactic Acid 1.2 Calcium 9.1 Total Bilirubin 0.6 AST 21 ALT 11 Alkaline Phosphatase 55 Troponin I High Sens B-Natriuretic Peptide 523 H Total Protein 5.9 L Albumin 3.4 L Rheumatoid Factor 08/01/21 07:37 ESR VBG pH 7.47 H VBG pCO2 38 VBG pO2 72 VBG HCO3 28 H VBG O2 Saturation 92.0 VBG Base Excess 4.2 Sodium Potassium Chloride Carbon Dioxide Anion Gap BUN Creatinine Estim Creat Clear Calc Estimated GFR Random Glucose Lactic Acid Calcium Total Bilirubin AST ALT Alkaline Phosphatase Troponin I High Sens B-Natriuretic Peptide Total Protein Albumin Rheumatoid Factor Microbiology Microbiology Results: Microbiology 07/29/21 18:39 Blood - Venous Blood Culture - Preliminary No growth after 48 hours. 07/29/21 18:19 Blood - Venous Blood Culture - Preliminary No growth after 48 hours. Review of Systems Review of Systems Yes all other systems are reviewed and are negative Cardiovascular: Reports as per HPI, Reports no additional cardiovascular complaints, Denies acrocyanosis, Denies cool extremities, Denies painful fingertips, Denies chest pain, Denies chest pain at rest, Denies diaphoresis, Denies syncope, Denies irregular heart rhythm, Denies claudication, Denies leg edema, Denies lightheadedness, Denies palpitations and Reports dyspnea Respiratory: Reports dyspnea Denies syncope Endocrine: Denies palpitations Physical Exam Vital Signs: Vital Signs: Last Vital Signs Temp 97.2 F 08/01/21 11:02 Pulse 67 08/01/21 11:02 Resp 18 08/01/21 11:02 BP 144/73 H 08/01/21 11:02 Pulse Ox 95 08/01/21 11:02 Oxygen Flow Rate 4 07/29/21 15:48 Body Mass Index 36.8 Const: General: alert Neck: Neck: Yes normal visual inspection, Yes full ROM and Yes no lymphadenopathy Chest: Chest palpation & inspection: normal inspection of the chest Resp: Auscultation: rales, diminished lung sounds, bronchial breath sounds on the right and egophony right lower Cardio: Rate: regular rate Rhythm: regular rhythm Heart sounds: S1 normal heart sound present and S2 normal heart sound present GI: Palpation (GI): Soft to palpation and nontender Auscultation: normal bowel sounds Skin: General skin exam: rashes and/or lesions noted Procedures Date of Service Date of Service: 08/01/21 Assessment and Plan Assessment and plan (1) Acute on chronic diastolic (congestive) heart failure: Status: Acute Assessment and Plan: EF 55% (2) Community acquired pneumonia: Status: Acute (3) Pneumonitis: Status: Acute (4) Acute respiratory failure with hypoxia: Status: Acute Assessment and Plan: COntinue Doxy Solumedrol 60mg q8 probably more reasonable Diuresis NC o2 to keep pox>90% Time Spent With Patient Time: Total time spent is greater than 50% in coordination of care (as documented) at patient's floor/unit and/or counseling patient: Time with patient: 15 - 24 minutes Progress Note: Quality Stroke Does the patient have a stroke diagnosis?: No
[2021-08-01] MEDS: Furosemide 20 MG/2 ML VIAL IVPUSH (12:42)
[2021-08-01 14:51] LABS: Anti Nuclear Antibody Screen NEGATIVE (NEGATIVE)
--- NOTE | 2021-08-01 15:11 | HO.PM.IMPN ---
Subjective Subjective Date of Service: 08/01/21 Interval History: Pneumonitis, question of CHF Review of Systems Patient still short of breath but somewhat improving since yesterday Denies any chest pain or abdominal pain or fever chills or cough or phlegm Denies any nausea or vomiting Physical Exam Vital Signs: Vital Signs: Last Vital Signs Temp 98.0 F 08/01/21 14:56 Pulse 62 08/01/21 14:56 Resp 20 08/01/21 14:56 BP 169/75 H 08/01/21 14:56 Pulse Ox 96 08/01/21 14:56 Oxygen Flow Rate 4 07/29/21 15:48 Body Mass Index 36.8 Physical exam: Appearance:comfort able..? ENT: Phary nx normal.? Moist mucous membranes. cvs: rrr, [id number] d , no murmur res: air entry similat as yesterday , di mished at bases ab d: no rebound or g uarding ,nt, bs pr esent. ext pulses present , no cyano sis ,Gait well bal anced well coordin ated. neuro: axo3 , nonfocal. Objective Data Active Medications Acetaminophen (Acetaminophen 325 Mg Tablet) 650 mg PO Q6H PRN PRN Reason: Pain, Mild (Pain Scale 1-3) Last Admin: 08/01/21 12:14 Dose: 650 mg Documented by: THEA Docusate Sodium (Docusate Sodium 100 Mg Capsule) 100 mg PO DAILY PRN PRN Reason: Constipation Fluticasone/Vilanterol (Fluticasone/Vilanterol 100/25 Blst.W.Dev) 1 puff INHALE DAILY COUNTS INCLUDE 234 BEDS AT THE [facility] Last Admin: 08/01/21 07:46 Dose: Not Given Documented by: LINETTE Non-Admin Reason: Med Not Available Furosemide (Furosemide 20 Mg/2 Ml Vial) 20 mg IVPUSH Q12H COUNTS INCLUDE 234 BEDS AT THE [facility]; Protocol Last Admin: 08/01/21 12:42 Dose: 20 mg Documented by: THEA Gabapentin (Gabapentin 100 Mg Capsule) 100 mg PO TID COUNTS INCLUDE 234 BEDS AT THE [facility] Last Admin: 08/01/21 08:24 Dose: 100 mg Documented by: THEA Gabapentin (Gabapentin 300 Mg Capsule) 300 mg PO TID COUNTS INCLUDE 234 BEDS AT THE [facility] Last Admin: 08/01/21 08:25 Dose: 300 mg Documented by: THEA Doxycycline Hyclate 100 mg/ (Sodium Chloride) 250 mls @ 166.67 mls/hr IV Q12H COUNTS INCLUDE 234 BEDS AT THE [facility] Last Infusion: 08/01/21 12:17 Dose: 0 mls/hr Documented by: THEA Losartan Potassium (Losartan Potassium 25 Mg Tablet) 25 mg PO DAILY COUNTS INCLUDE 234 BEDS AT THE [facility]; Protocol Last Admin: 08/01/21 08:24 Dose: 25 mg Documented by: THEA Magnesium Oxide (Magnesium Oxide 400 Mg Tablet) 400 mg PO BIDPC COUNTS INCLUDE 234 BEDS AT THE [facility] Last Admin: 08/01/21 08:25 Dose: 400 mg Documented by: THEA Omeprazole (Omeprazole 40 Mg Capsule.Dr) 40 mg PO BID@0630,1630 COUNTS INCLUDE 234 BEDS AT THE [facility] Last Admin: 08/01/21 05:39 Dose: 40 mg Documented by: WINSTON Pharmacy Consult (Consult Rx Perform Med Rec) 1 each MISCELLANE ONCE PRN PRN Reason: Consult order Rivaroxaban (Rivaroxaban 20 Mg Tablet) 20 mg PO DAILY COUNTS INCLUDE 234 BEDS AT THE [facility] Last Admin: 08/01/21 08:25 Dose: 20 mg Documented by: THEA Sodium Chloride (0.9 % Sodium Chloride Flush 3 Ml Syringe) 3 ml IVFLUSH QSHIFT COUNTS INCLUDE 234 BEDS AT THE [facility] Last Admin: 08/01/21 08:26 Dose: 3 ml Documented by: THEA Trazodone HCl (Trazodone Hcl 50 Mg Tablet) 150 mg PO BEDTIME COUNTS INCLUDE 234 BEDS AT THE [facility] Last Admin: 07/31/21 21:17 Dose: Not Given Documented by: WINSTON Non-Admin Reason: pt drowsy Labs CBC & Chem 7: 07/30/21 06:29 08/01/21 07:30 Labs: Laboratory Results - last 24 hr 07/31/21 07/31/21 07/31/21 18:08 18:47 18:47 ESR 100 H VBG pH 7.50 H VBG pCO2 32 VBG pO2 50 VBG HCO3 25 VBG O2 Saturation 78.0 VBG Base Excess 3.2 Anion Gap Estim Creat Clear Calc Estimated GFR Random Glucose Lactic Acid Calcium Total Bilirubin AST ALT Alkaline Phosphatase Troponin I High Sens B-Natriuretic Peptide Total Protein Albumin Rheumatoid Factor AIDE Screen NEGATIVE 07/31/21 07/31/21 07/31/21 18:47 18:51 20:59 ESR VBG pH 7.52 H VBG pCO2 32 VBG pO2 71 VBG HCO3 26 VBG O2 Saturation 93.0 VBG Base Excess TNP Anion Gap Estim Creat Clear Calc Estimated GFR Random Glucose Lactic Acid Calcium Total Bilirubin AST ALT Alkaline Phosphatase Troponin I High Sens 59.5 H* D B-Natriuretic Peptide Total Protein Albumin Rheumatoid Factor < 15.0 AIDE Screen 08/01/21 08/01/21 08/01/21 00:12 05:12 05:12 ESR VBG pH VBG pCO2 VBG pO2 VBG HCO3 VBG O2 Saturation VBG Base Excess Anion Gap 13 Estim Creat Clear Calc 60.6 Estimated GFR > 60 Random Glucose 182 H D Lactic Acid Calcium 9.1 Total Bilirubin AST ALT Alkaline Phosphatase Troponin I High Sens 35.9 H* B-Natriuretic Peptide 523 H Total Protein Albumin Rheumatoid Factor AIDE Screen 08/01/21 08/01/21 08/01/21 05:12 07:30 07:37 ESR VBG pH 7.47 H VBG pCO2 38 VBG pO2 72 VBG HCO3 28 H VBG O2 Saturation 92.0 VBG Base Excess 4.2 Anion Gap 13 Estim Creat Clear Calc 66.1 Estimated GFR > 60 Random Glucose 170 H Lactic Acid 1.2 Calcium 9.1 Total Bilirubin 0.6 AST 21 ALT 11 Alkaline Phosphatase 55 Troponin I High Sens B-Natriuretic Peptide Total Protein 5.9 L Albumin 3.4 L Rheumatoid Factor AIDE Screen Microbiology Microbiology Results: Microbiology 07/29/21 18:39 Blood Culture - Preliminary Blood - Venous No growth after 48 hours. 07/29/21 18:19 Blood Culture - Preliminary Blood - Venous No growth after 48 hours. Assessment and Plan (1) Pneumonitis: Status: Acute (2) Acute on chronic diastolic (congestive) heart failure: Status: Acute (3) Diastolic CHF: Status: Acute (4) Atrial fibrillation: Status: Acute Assessment and Plan: 86-year-old male with extensive past medical history as mentioned above who presents to the hospital with hypoxic respiratory failure found to have pneumonia 1. acute hypoxic respiratory failure- most likely secondary to pneumonia, viral versus bacterial. - found to be hypoxic in the 80s, currently on 6 L of oxygen satting 94% ?chest CT shows imaging evidence of COVID-19 pneumonia versus other viral pneumonia although patient is COVID NAAT negative ?respiratory viral panel-neg, vaccinated against COVID-19 continue oxygen supplement, titrate oxygen as tolerated Shortness of breath still slightly better but lung exam seems similar. Yesterday seen by ICU and also today seen by Pulmonary. continue doxycycline, also iv steroids-? Pneumonitis hypersensitivity. immunologic labs pending cardio:seen patient with elevated trops , chf ?, has pacemaker, afib- probable diastolic chf excerebation: given iv lasix yesterday and today-blood pressure is on the softer side will hold IV Lasix for now. ? trop elevated possible due to chf given digoxin x1 dose last night by icu hr seems in 60-80:we will add metoprolol 2. community-acquired pneumonia- viral versus bacterial continue? him on IV antibiotic 3. cellulitis- patient has intermittent cellulitis ?left lower extremity continue? with IV antibiotics-doxy day3. 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 HTN:? Hold BP medications due to softer blood pressure. 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 gout-? hold allopurinol in the setting of GIN 8. COPD- not appear to be in exacerbation, does not have increased cough or sputum production - continue home inhalers DVT prophylaxis:? Xarelto Quality Stroke Does the patient have a stroke diagnosis?: No VTE Prior VTE?: Yes VTE Risk Level:: Medical - moderate - high VTE Device Contraindication: Treatment Not Indicated VTE Drug Contraindication: N/A - Med Ordered
[2021-08-01] MEDS: traZODone HCL 50 MG TABLET 150 MG PO (21:18)
[2021-08-01] MEDS: Metoprolol Tartrate 12.5 MG HALFTAB PO (21:19)
--- NOTE | 2021-08-01 22:22 | P.CNID_ITS ---
History of Present Illness Data of Consult Service Date: 08/01/21 Requesting physician: Francis Kay Primary Care Provider: MD MATY Pozo Reason for consult: shortness of breath He presents with shortness of breath and dry cough for a week. He reports no purulent sputum or fever or chills. He carries diagnosis of CAD,COPD,CHF and PE He has peripatetic infiltrates,no specific lobar infiltrates. Review of Systems Review of Systems: Yes all other systems are reviewed and are negative [facility] Past Medical History Medical History Atrial fibrillation BPH (benign prostatic hyperplasia) CHF (congestive heart failure) COPD (chronic obstructive pulmonary disease) Diastolic CHF DVT (deep venous thrombosis) Gout History of pulmonary embolism HTN (hypertension) Hypomagnesemia Hypoxia Pneumonitis Presence of permanent cardiac pacemaker Stasis dermatitis Family History Family History Other HTN (hypertension) Heart disease Family history: reviewed and not pertinent Surgical History Surgical History Status post placement of cardiac pacemaker Social History Social History Household Members: None Housing: Assisted Living Facility Do you presently have visiting nurse or other home services: Yes Alcohol intake: never Patient Tobacco Use Status: Former Tobacco user Advance Directives Date on File: 07/13/21 service: No Current occupational status: retired Meds Allergies Allergy/AdvReac Type Severity Reaction Status Date / Time levofloxacin [LEVOFLOXACIN] Allergy Severe HYPOTENSION Verified 06/24/21 00:47 Penicillins [PCN] Allergy Severe DIFFICULTY Verified 06/24/21 00:47 BREATHING,RASH penicillin V Allergy Unknown sob/rash Verified 06/24/21 00:47 quinine [QUININE] Allergy Unknown UNKNOWN, ? Verified 06/24/21 00:47 Sulfa (Sulfonamide Allergy Unknown UNSURE Verified 06/24/21 00:47 Antibiotics) [SULFA(SULFONAMIDE ANTIBIOTICS)] morphine [MORPHINE] AdvReac Intermediate HYPOTENSION Verified 06/24/21 00:47 MUSCLE RELAXERS Allergy Severe RASH/IMMOBI Uncoded 06/28/20 14:48 LITY Active Medications: Current Medications Acetaminophen (Acetaminophen 325 Mg Tablet) 650 mg PO Q6H PRN PRN Reason: Pain, Mild (Pain Scale 1-3) Last Admin: 08/01/21 19:20 Dose: 650 mg Documented by: Docusate Sodium (Docusate Sodium 100 Mg Capsule) 100 mg PO DAILY PRN PRN Reason: Constipation Fluticasone/Vilanterol (Fluticasone/Vilanterol 100/25 Blst.W.Dev) 1 puff INHALE DAILY [facility] Last Admin: 08/01/21 07:46 Dose: Not Given Documented by: Furosemide (Furosemide 20 Mg/2 Ml Vial) 20 mg IVPUSH Q12H [facility]; Protocol Last Admin: 08/01/21 12:42 Dose: 20 mg Documented by: Gabapentin (Gabapentin 100 Mg Capsule) 100 mg PO TID [facility] Last Admin: 08/01/21 21:18 Dose: 100 mg Documented by: Gabapentin (Gabapentin 300 Mg Capsule) 300 mg PO TID [facility] Last Admin: 08/01/21 21:18 Dose: 300 mg Documented by: Doxycycline Hyclate 100 mg/ (Sodium Chloride) 250 mls @ 166.67 mls/hr IV Q12H [facility] Last Admin: 08/01/21 19:20 Dose: 166.67 mls/hr Documented by: Losartan Potassium (Losartan Potassium 25 Mg Tablet) 25 mg PO DAILY [facility]; Protocol Last Admin: 08/01/21 08:24 Dose: 25 mg Documented by: Magnesium Oxide (Magnesium Oxide 400 Mg Tablet) 400 mg PO BIDPC [facility] Last Admin: 08/01/21 18:13 Dose: 400 mg Documented by: Metoprolol Tartrate (Metoprolol Tartrate 12.5 Mg Halftab) 12.5 mg PO BID [facility]; Protocol Last Admin: 08/01/21 21:19 Dose: 12.5 mg Documented by: Omeprazole (Omeprazole 40 Mg Capsule.Dr) 40 mg PO BID@0630,1630 [facility] Last Admin: 08/01/21 16:34 Dose: 40 mg Documented by: Pharmacy Consult (Consult Rx Perform Med Rec) 1 each MISCELLANE ONCE PRN PRN Reason: Consult order Rivaroxaban (Rivaroxaban 20 Mg Tablet) 20 mg PO DAILY [facility] Last Admin: 08/01/21 08:25 Dose: 20 mg Documented by: Sodium Chloride (0.9 % Sodium Chloride Flush 3 Ml Syringe) 3 ml IVFLUSH QSHIFT [facility] Last Admin: 08/01/21 19:21 Dose: 3 ml Documented by: Trazodone HCl (Trazodone Hcl 50 Mg Tablet) 150 mg PO BEDTIME [facility] Last Admin: 08/01/21 21:18 Dose: 150 mg Documented by: Home Medications Medication Instructions Recorded Confirmed Last Taken Type allopurinol 300 mg tablet 1 tab PO DAILY 06/21/21 07/29/21 06/21/21 History escitalopram oxalate 20 mg tablet 1 tab PO DAILY 06/21/21 07/29/21 06/21/21 History fenofibrate 160 mg tablet 1 tab PO DAILY 06/21/21 07/29/21 06/21/21 History fluticasone furoate 100 1 puff INHALATION DAILY 06/21/21 07/29/21 06/21/21 History mcg-vilanterol 25 mcg/dose inhalation powder (Breo Ellipta) furosemide 20 mg tablet 2 tab PO DAILY 06/21/21 07/29/21 06/21/21 History gabapentin 100 mg capsule 1 cap PO TID 06/21/21 07/29/21 06/21/21 History gabapentin 300 mg capsule 1 cap PO TID 06/21/21 07/29/21 06/21/21 History omeprazole 40 mg capsule,delayed 1 cap PO BID 06/21/21 07/29/21 06/21/21 History release rivaroxaban 20 mg tablet (Xarelto) 1 tab PO DAILY 06/21/21 07/29/21 06/21/21 History tamsulosin 0.4 mg capsule 1 cap PO DAILY 06/21/21 07/29/21 06/21/21 History valsartan 40 mg tablet 1 tab PO DAILY 06/21/21 07/29/21 06/21/21 History trazodone 150 mg tablet 1 tab PO BEDTIME 07/29/21 07/29/21 Unknown History Physical Exam Vital Signs: Vital Signs: Last Vital Signs Temp 97.0 F 08/01/21 19:41 Pulse 63 08/01/21 21:19 Resp 18 08/01/21 19:41 BP 159/90 H 08/01/21 21:19 Pulse Ox 94 08/01/21 19:41 Oxygen Flow Rate 4 07/29/21 15:48 Body Mass Index 36.8 Const: General: cooperative HENMT: Head: Yes normal to inspection Mouth: Normal oral and palatal mucosa present Resp: Effort & Inspection: Actively coughing Cardio: Rate: regular rate Rhythm: regular rhythm GI: Palpation (GI): Soft to palpation and nontender Extrem: General: Yes normal to inspection Results Labs CBC & Chem 7: 07/30/21 06:29 08/06/21 06:05 Labs: BMP 08/01/21 08/01/21 05:12 07:30 Sodium 140 139 Potassium 4.3 4.2 Chloride 103 103 Carbon Dioxide 28 27 BUN 26 H 26 H Creatinine 1.09 1.00 Calcium 9.1 9.1 Liver Function 08/01/21 Range/Units 07:30 Total Bilirubin 0.6 (0.0-1.0) mg/dL AST 21 (5-37) U/L ALT 11 (0-40) U/L Alkaline Phosphatase 55 (39-117) U/L Albumin 3.4 L (3.5-5.0) g/dL Microbiology Microbiology Results: Microbiology 07/29/21 18:39 Blood - Venous Blood Culture - Preliminary No growth after 48 hours. 07/29/21 18:19 Blood - Venous Blood Culture - Preliminary No growth after 48 hours. Assessment and Plan (1) Pneumonitis: Status: Acute There doesnt seem to be any acute infection. He has no fever or chills and no specific lobar infiltrate or leukocytosis Multiple drug allergies He has likely COPD or CHF comorbidity causing current symptoms However atypical organisms such as Legionella can cause above symptoms Doxycycline,change to po tomorrow 100 mg bid for a week treat atypicals/possible MRSA/decrease inflammation Would check Legionella antigen. Treat other comorbidities.
[2021-08-02] VITALS (10 sets, daily range): BP systolic 119–167; BP diastolic 56–90; PULSE 59–86; RESP 18–20; TEMP 35.5–37.3; O2SAT 91–95
[2021-08-02] MEDS: Furosemide 20 MG/2 ML VIAL IVPUSH (01:30)
[2021-08-02 02:41] LABS: Immunoglobulin E 788 kU/L (<OR=114)
[2021-08-02] MEDS: Omeprazole 40 MG CAPSULE.DR PO ×2 (06:17→18:04)
[2021-08-02 06:31] LABS: Anion Gap 12 (12-20); Blood Urea Nitrogen 29 mg/dL (9-16); Calcium 9.4 mg/dL (8.4-10.2); Carbon Dioxide 28 mmol/L (22-29); Chloride 105 mmol/L (96-108); Creatinine Clr Calc Pharmacy 75.9; Estimated Glomerular Filt Rate > 60; Glucose Random 161 mg/dL (60-115); Sodium 141 mmol/L (135-145)
[2021-08-02] MEDS: Doxycycline Hyclate 100 MG in 0.9 % Sodium Chloride 250 ML 166.67 MG IV ×2 (07:49→21:54)
[2021-08-02] MEDS: Rivaroxaban 20 MG TABLET PO (07:49)
[2021-08-02] MEDS: Gabapentin 300 MG CAPSULE PO ×3 (07:50→22:09)
[2021-08-02] MEDS: Magnesium Oxide 400 MG TABLET PO ×2 (07:50→18:04)
[2021-08-02] MEDS: Metoprolol Tartrate 12.5 MG HALFTAB PO ×2 (07:50→21:55)
[2021-08-02] MEDS: Gabapentin 100 MG CAPSULE PO ×3 (07:50→21:55)
[2021-08-02] MEDS: Losartan Potassium 25 MG TABLET PO (07:50)
[2021-08-02] MEDS: Fluticasone/Vilanterol 100/25 BLST.W.DEV 1 PUFF INHALE (10:18)
[2021-08-02] MEDS: methylPREDNISolone Sod Succ 125 MG/2 ML VIAL 60 MG IVPUSH ×2 (10:33→21:55)
[2021-08-02] MEDS: Acetaminophen 325 MG TABLET 650 MG PO (11:57)
--- NOTE | 2021-08-02 12:44 | P.PNIM_ITS ---
Subjective Subjective Date of Service: 08/02/21 Interval History: Pneumonitis, question of CHF Review of Systems sob seems slightly better Denies any chest pain or abdominal pain or nausea or vomiting Physical Exam Vital Signs: Vital Signs: Last Vital Signs Temp 96 F L 08/02/21 11:01 Pulse 63 08/02/21 11:01 Resp 20 08/02/21 11:01 BP 126/60 08/02/21 11:01 Pulse Ox 93 08/02/21 11:01 Oxygen Flow Rate 4 07/29/21 15:48 Body Mass Index 36.8 ?Appearance:comfortable..? ENT: Pharynx normal.? Moist mucous membranes. cvs: rrr, [id number] , no murmur res: air entry improving , has few rhonchii. abd: no rebound or guarding ,nt, bs present. ext pulses present , no cyanosis ,Gait well balanced well coordinated. neuro: axo3 , nonfocal. Objective Data Active Medications Acetaminophen (Acetaminophen 325 Mg Tablet) 650 mg PO Q6H PRN PRN Reason: Pain, Mild (Pain Scale 1-3) Last Admin: 08/02/21 11:57 Dose: 650 mg Documented by: HUMAIRA Docusate Sodium (Docusate Sodium 100 Mg Capsule) 100 mg PO DAILY PRN PRN Reason: Constipation Fluticasone/Vilanterol (Fluticasone/Vilanterol 100/25 Blst.W.Dev) 1 puff INHALE DAILY [facility] Last Admin: 08/02/21 10:18 Dose: 1 puff Documented by: LINETTE Furosemide (Furosemide 40 Mg Tablet) 40 mg PO DAILY [facility]; Protocol Gabapentin (Gabapentin 100 Mg Capsule) 100 mg PO TID [facility] Last Admin: 08/02/21 07:50 Dose: 100 mg Documented by: HUMAIRA Gabapentin (Gabapentin 300 Mg Capsule) 300 mg PO TID [facility] Last Admin: 08/02/21 07:50 Dose: 300 mg Documented by: HUMAIRA Doxycycline Hyclate 100 mg/ (Sodium Chloride) 250 mls @ 166.67 mls/hr IV Q12H [facility] Last Infusion: 08/02/21 10:35 Dose: 0 mls/hr Documented by: HUMAIRA Losartan Potassium (Losartan Potassium 25 Mg Tablet) 25 mg PO DAILY [facility]; Protocol Last Admin: 08/02/21 07:50 Dose: 25 mg Documented by: HUMAIRA Magnesium Oxide (Magnesium Oxide 400 Mg Tablet) 400 mg PO BIDPC [facility] Last Admin: 08/02/21 07:50 Dose: 400 mg Documented by: HUMAIRA Methylprednisolone Sodium Succinate (Methylprednisolone Sod Succ 125 Mg/2 Ml Vial) 60 mg IVPUSH Q12H [facility] Last Admin: 08/02/21 10:33 Dose: 60 mg Documented by: HUAMIRA Metoprolol Tartrate (Metoprolol Tartrate 12.5 Mg Halftab) 12.5 mg PO BID [facility]; Protocol Last Admin: 08/02/21 07:50 Dose: 12.5 mg Documented by: HUMAIRA Omeprazole (Omeprazole 40 Mg Capsule.Dr) 40 mg PO BID@0630,1630 [facility] Last Admin: 08/02/21 06:17 Dose: 40 mg Documented by: WINSTON Pharmacy Consult (Consult Rx Perform Med Rec) 1 each MISCELLANE ONCE PRN PRN Reason: Consult order Rivaroxaban (Rivaroxaban 20 Mg Tablet) 20 mg PO DAILY [facility] Last Admin: 08/02/21 07:49 Dose: 20 mg Documented by: HUMAIRA Sodium Chloride (0.9 % Sodium Chloride Flush 3 Ml Syringe) 3 ml IVFLUSH QSHIFT [facility] Last Admin: 08/01/21 19:21 Dose: 3 ml Documented by: WINSTON Trazodone HCl (Trazodone Hcl 50 Mg Tablet) 150 mg PO BEDTIME [facility] Last Admin: 08/01/21 21:18 Dose: 150 mg Documented by: WINSTON Labs CBC & Chem 7: 07/30/21 06:29 08/02/21 06:01 Labs: Laboratory Results - last 24 hr 07/31/21 07/31/21 08/02/21 18:47 18:47 06:01 Anion Gap 12 Estim Creat Clear Calc 75.9 Estimated GFR > 60 Random Glucose 161 H Calcium 9.4 IgE 788 H AIDE Screen NEGATIVE AIDE Titer TNP AIDE Titer 2 TNP AIDE Titer 3 TNP AIDE Pattern TNP AIDE Pattern 2 TNP AIDE Pattern 3 TNP Microbiology Microbiology Results: Microbiology 08/01/21 05:10 Blood Culture - Preliminary Blood - Venous No growth after 24 hours. 08/01/21 05:12 Blood Culture - Preliminary Blood - Venous No growth after 24 hours. 07/29/21 18:39 Blood Culture - Preliminary Blood - Venous No growth after 48 hours. Assessment and Plan (1) Pneumonitis: Status: Acute (2) Acute on chronic diastolic (congestive) heart failure: Status: Acute (3) Atrial fibrillation: Status: Acute (4) GIN (acute kidney injury): Status: Acute Assessment and Plan: 86-year-old male with extensive past medical history as mentioned above who presents to the hospital with hypoxic respiratory failure found to have pneumonia 1. acute hypoxic respiratory failure- most likely secondary to pneumonia, viral versus bacterial. ?chest CT shows imaging evidence of COVID-19 pneumonia versus other viral pneumonia although patient is COVID NAAT negative ?respiratory viral panel-neg, vaccinated against COVID-19 continue oxygen supplement, titrate oxygen as tolerated. sob seems slightly better continue doxycycline, also iv steroids-?? Pneumonitis hypersensitivity. immunologic labs pending 2.cardio:seen patient with elevated trops , chf ?, has pacemaker, afib- probable diastolic chf excerebation: given iv lasix yesterday and today-blood pressure is on the softer side will hold IV Lasix for now. ? trop elevated possible due to chf given digoxin x1 dose on 07/31 hr seems in 60-80:on metoprolol switched to po lasix 2. community-acquired pneumonia- viral versus bacterial continue? him on IV antibiotic 3. cellulitis- patient has intermittent cellulitis ?left lower extremity continue? with IV antibiotics-doxy day4. 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 HTN:? Hold BP medications due to softer blood pressure. 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 gout-? hold allopurinol in the setting of GIN 8. COPD- not appear to be in exacerbation, does not have increased cough or sputum production - continue home inhalers DVT prophylaxis:? Xarelto Quality Stroke Does the patient have a stroke diagnosis?: No VTE Prior VTE?: Yes VTE Risk Level:: Medical - moderate - high VTE Device Contraindication: Treatment Not Indicated VTE Drug Contraindication: N/A - Med Ordered
--- NOTE | 2021-08-02 13:01 | MHC.CM.PN ---
per rounds pt is mnot ready for dc he continues on a [employer] drip
[2021-08-02] MEDS: 0.9 % Sodium Chloride Flush 3 ML SYRINGE IVFLUSH ×2 (16:06→22:06)
[2021-08-02] MEDS: traZODone HCL 50 MG TABLET 150 MG PO (21:54)
[2021-08-03] VITALS (11 sets, daily range): BP systolic 146–185; BP diastolic 72–93; PULSE 58–68; RESP 18–24; TEMP 35.9–37.1; O2SAT 92–97
[2021-08-03] MEDS: Omeprazole 40 MG CAPSULE.DR PO ×2 (06:46→17:12)
[2021-08-03] MEDS: Fluticasone/Vilanterol 100/25 BLST.W.DEV 1 PUFF INHALE (08:14)
[2021-08-03] MEDS: Gabapentin 300 MG CAPSULE PO ×3 (10:01→20:45)
[2021-08-03] MEDS: Rivaroxaban 20 MG TABLET PO (10:01)
[2021-08-03] MEDS: Magnesium Oxide 400 MG TABLET PO ×2 (10:02→17:12)
[2021-08-03] MEDS: Furosemide 40 MG TABLET PO (10:02)
[2021-08-03] MEDS: Metoprolol Tartrate 12.5 MG HALFTAB PO ×2 (10:02→20:45)
[2021-08-03] MEDS: methylPREDNISolone Sod Succ 125 MG/2 ML VIAL 60 MG IVPUSH ×2 (10:03→20:46)
[2021-08-03] MEDS: Isosorbide Mononitrate 30 MG TAB.ER.24H PO (10:03)
[2021-08-03] MEDS: Gabapentin 100 MG CAPSULE PO ×3 (10:03→20:45)
[2021-08-03] MEDS: Doxycycline Hyclate 100 MG in 0.9 % Sodium Chloride 250 ML 166.67 MG IV ×2 (10:05→20:45)
[2021-08-03] MEDS: 0.9 % Sodium Chloride Flush 3 ML SYRINGE IVFLUSH ×2 (10:09→15:06)
--- NOTE | 2021-08-03 10:39 | HO.PM.IMPN ---
Subjective Subjective Date of Service: 08/03/21 Interval History: Pneumonitis, CHF Review of Systems seems sob slowly improving , has cough dry Denies any new complaint of chest pain or abdominal pain or fever or chills or nausea or vomiting Denies any weakness or numbness. Physical Exam Vital Signs: Vital Signs: Last Vital Signs Temp 96.7 F L 08/03/21 07:27 Pulse 60 08/03/21 10:03 Resp 18 08/03/21 07:27 BP 150/72 H 08/03/21 10:03 Pulse Ox 94 08/03/21 07:27 Oxygen Flow Rate 4 07/29/21 15:48 Body Mass Index 36.8 Appearance:comfortable..? ENT: Pharynx normal.? Moist mucous membranes. cvs: rrr, [id number] , no murmur res: air entry seems slightly better than yesterday, has few rhonchii. abd: no rebound or guarding ,nt, bs present. ext pulses present , no cyanosis ,Gait well balanced well coordinated. neuro: axo3 , nonfocal. Objective Data Active Medications Acetaminophen (Acetaminophen 325 Mg Tablet) 650 mg PO Q6H PRN PRN Reason: Pain, Mild (Pain Scale 1-3) Last Admin: 08/02/21 11:57 Dose: 650 mg Documented by: HUMAIRA Docusate Sodium (Docusate Sodium 100 Mg Capsule) 100 mg PO DAILY PRN PRN Reason: Constipation Fluticasone/Vilanterol (Fluticasone/Vilanterol 100/25 Blst.W.Dev) 1 puff INHALE DAILY [facility] Last Admin: 08/03/21 08:14 Dose: 1 puff Documented by: ALISHA Furosemide (Furosemide 40 Mg Tablet) 40 mg PO DAILY [facility]; Protocol Last Admin: 08/03/21 10:02 Dose: 40 mg Documented by: JANETH Gabapentin (Gabapentin 100 Mg Capsule) 100 mg PO TID [facility] Last Admin: 08/03/21 10:03 Dose: 100 mg Documented by: JANETH Gabapentin (Gabapentin 300 Mg Capsule) 300 mg PO TID [facility] Last Admin: 08/03/21 10:01 Dose: 300 mg Documented by: JANETH Doxycycline Hyclate 100 mg/ (Sodium Chloride) 250 mls @ 166.67 mls/hr IV Q12H [facility] Last Admin: 08/03/21 10:05 Dose: 166.67 mls/hr Documented by: JANETH Isosorbide Mononitrate (Isosorbide Mononitrate 30 Mg Tab.Er.24h) 30 mg PO DAILY [facility]; Protocol Last Admin: 08/03/21 10:03 Dose: 30 mg Documented by: JANETH Losartan Potassium (Losartan Potassium 25 Mg Tablet) 25 mg PO DAILY [facility]; Protocol Last Admin: 08/02/21 07:50 Dose: 25 mg Documented by: HUMAIRA Magnesium Oxide (Magnesium Oxide 400 Mg Tablet) 400 mg PO BIDPC [facility] Last Admin: 08/03/21 10:02 Dose: 400 mg Documented by: JANETH Methylprednisolone Sodium Succinate (Methylprednisolone Sod Succ 125 Mg/2 Ml Vial) 60 mg IVPUSH Q12H [facility] Last Admin: 08/03/21 10:03 Dose: 60 mg Documented by: JANETH Metoprolol Tartrate (Metoprolol Tartrate 12.5 Mg Halftab) 12.5 mg PO BID [facility]; Protocol Last Admin: 08/03/21 10:02 Dose: 12.5 mg Documented by: JANETH Omeprazole (Omeprazole 40 Mg Capsule.Dr) 40 mg PO BID@0630,1630 [facility] Last Admin: 08/03/21 06:46 Dose: 40 mg Documented by: KHOA Pharmacy Consult (Consult Rx Perform Med Rec) 1 each MISCELLANE ONCE PRN PRN Reason: Consult order Rivaroxaban (Rivaroxaban 20 Mg Tablet) 20 mg PO DAILY [facility] Last Admin: 08/03/21 10:01 Dose: 20 mg Documented by: JANETH Sodium Chloride (0.9 % Sodium Chloride Flush 3 Ml Syringe) 3 ml IVFLUSH QSHIFT [facility] Last Admin: 08/03/21 10:09 Dose: 3 ml Documented by: JANETH Trazodone HCl (Trazodone Hcl 50 Mg Tablet) 150 mg PO BEDTIME [facility] Last Admin: 08/02/21 21:54 Dose: 150 mg Documented by: KHOA Labs CBC & Chem 7: 07/30/21 06:29 08/02/21 06:01 Microbiology Microbiology Results: Microbiology 08/01/21 05:10 Blood Culture - Preliminary Blood - Venous No growth after 48 hours. 10/21/21 05:12 Blood Culture - Preliminary Blood - Venous No growth after 48 hours. Assessment and Plan (1) Acute on chronic diastolic (congestive) heart failure: Status: Acute (2) Pneumonitis: Status: Acute (3) Diastolic CHF: Status: Acute Assessment and Plan: 86-year-old male with extensive past medical history as mentioned above who presents to the hospital with hypoxic respiratory failure found to have pneumonia 1. acute hypoxic respiratory failure- most likely secondary to pneumonia, viral versus bacterial. ?chest CT shows imaging evidence of COVID-19 pneumonia versus other viral pneumonia although patient is COVID NAAT negative ?respiratory viral panel-neg, vaccinated against COVID-19 continue oxygen supplement, titrate oxygen as tolerated. sob seems slightly better continue doxycycline, continue iv steroids-?? Pneumonitis hypersensitivity. immunologic labs pending 2.cardio:seen patient with elevated trops , chf ?, has pacemaker, afib- probable diastolic chf excerebation: given iv lasix yesterday and today-blood pressure is on the softer side will hold IV Lasix for now. ? trop elevated possible due to chf given digoxin x1 dose on 07/31 hr seems in 60-80:on metoprolol on po lasix 2. community-acquired pneumonia- viral versus bacterial continue? him on IV antibiotic 3. cellulitis- patient has intermittent cellulitis ?left lower extremity continue? with IV antibiotics-doxy day5. 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 HTN:? Hold BP medications due to softer blood pressure. 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 gout-? will start allopurinol in the setting of GIN 8. COPD- not appear to be in exacerbation, does not have increased cough or sputum production - continue home inhalers DVT prophylaxis:? Xarelto Quality Stroke Does the patient have a stroke diagnosis?: No VTE Prior VTE?: Yes VTE Risk Level:: Medical - moderate - high VTE Device Contraindication: Treatment Not Indicated VTE Drug Contraindication: N/A - Med Ordered
[2021-08-03] MEDS: allopurinoL 300 MG TABLET PO (12:36)
[2021-08-03] MEDS: Acetaminophen 325 MG TABLET 650 MG PO (17:12)
[2021-08-03] MEDS: traZODone HCL 50 MG TABLET 150 MG PO (20:45)
[2021-08-04] VITALS (9 sets, daily range): BP systolic 129–189; BP diastolic 66–95; PULSE 60–88; RESP 18–20; TEMP 36.4–37.1; O2SAT 93–99
[2021-08-04] MEDS: 0.9 % Sodium Chloride Flush 3 ML SYRINGE IVFLUSH ×4 (02:23→23:38)
[2021-08-04] MEDS: Omeprazole 40 MG CAPSULE.DR PO ×2 (06:34→16:52)
[2021-08-04] MEDS: Doxycycline Hyclate 100 MG in 0.9 % Sodium Chloride 250 ML 166.67 MG IV ×2 (10:19→20:09)
[2021-08-04] MEDS: methylPREDNISolone Sod Succ 125 MG/2 ML VIAL 60 MG IVPUSH ×3 (10:23→20:10)
[2021-08-04] MEDS: Gabapentin 300 MG CAPSULE PO ×3 (10:24→20:11)
[2021-08-04] MEDS: Rivaroxaban 20 MG TABLET PO (10:25)
[2021-08-04] MEDS: Isosorbide Mononitrate 30 MG TAB.ER.24H PO (10:25)
[2021-08-04] MEDS: Gabapentin 100 MG CAPSULE PO ×3 (10:25→20:11)
[2021-08-04] MEDS: Metoprolol Tartrate 12.5 MG HALFTAB PO ×2 (10:25→20:10)
[2021-08-04] MEDS: Furosemide 40 MG TABLET PO (10:25)
[2021-08-04] MEDS: allopurinoL 300 MG TABLET PO (10:26)
[2021-08-04] MEDS: Magnesium Oxide 400 MG TABLET PO ×2 (10:26→16:52)
[2021-08-04] MEDS: Fluticasone/Vilanterol 100/25 BLST.W.DEV 1 PUFF INHALE (10:27)
[2021-08-04] MEDS: Acetaminophen 325 MG TABLET 650 MG PO ×2 (10:30→16:55)
--- NOTE | 2021-08-04 12:02 | P.PNIM_ITS ---
Subjective Subjective Date of Service: 08/04/21 Interval History: Pneumonitis,? CHF Review of Systems dry cough and sob slowly improving Denies any new complaint of chest pain or abdominal pain or fever or chills or nausea or vomiting Physical Exam Vital Signs: Vital Signs: Last Vital Signs Temp 97.7 F 08/04/21 11:46 Pulse 60 08/04/21 11:46 Resp 20 08/04/21 11:46 BP 148/72 H 08/04/21 11:46 Pulse Ox 93 08/04/21 11:46 Oxygen Flow Rate 4 07/29/21 15:48 Body Mass Index 36.8 comfortable..? ENT: Pharynx normal.? Moist mucous membranes. cvs: rrr, [id number] , no murmur res: air entry seems slightly better than yesterday, has few rhonchii. abd: no rebound or guarding ,nt, bs present. ext pulses present , no cyanosis ,Gait well balanced well coordinated. neuro: axo3 , nonfocal. Objective Data Active Medications Acetaminophen (Acetaminophen 325 Mg Tablet) 650 mg PO Q6H PRN PRN Reason: Pain, Mild (Pain Scale 1-3) Last Admin: 08/04/21 10:30 Dose: 650 mg Documented by: JES Allopurinol (Allopurinol 300 Mg Tablet) 300 mg PO DAILY [facility] Last Admin: 08/04/21 10:26 Dose: 300 mg Documented by: JES Docusate Sodium (Docusate Sodium 100 Mg Capsule) 100 mg PO DAILY PRN PRN Reason: Constipation Fluticasone/Vilanterol (Fluticasone/Vilanterol 100/25 Blst.W.Dev) 1 puff INHALE DAILY [facility] Last Admin: 08/04/21 10:27 Dose: 1 puff Documented by: JES Furosemide (Furosemide 40 Mg Tablet) 40 mg PO DAILY [facility]; Protocol Last Admin: 08/04/21 10:25 Dose: 40 mg Documented by: JES Gabapentin (Gabapentin 100 Mg Capsule) 100 mg PO TID [facility] Last Admin: 08/04/21 10:25 Dose: 100 mg Documented by: JES Gabapentin (Gabapentin 300 Mg Capsule) 300 mg PO TID [facility] Last Admin: 08/04/21 10:24 Dose: 300 mg Documented by: JES Doxycycline Hyclate 100 mg/ (Sodium Chloride) 250 mls @ 166.67 mls/hr IV Q12H [facility] Last Admin: 08/04/21 10:19 Dose: 166.67 mls/hr Documented by: JES Isosorbide Mononitrate (Isosorbide Mononitrate 30 Mg Tab.Er.24h) 30 mg PO DAILY [facility]; Protocol Last Admin: 08/04/21 10:25 Dose: 30 mg Documented by: JES Losartan Potassium (Losartan Potassium 25 Mg Tablet) 25 mg PO DAILY [facility]; Protocol Last Admin: 08/02/21 07:50 Dose: 25 mg Documented by: THERESABAKeri Magnesium Oxide (Magnesium Oxide 400 Mg Tablet) 400 mg PO BIDPC [facility] Last Admin: 08/04/21 10:26 Dose: 400 mg Documented by: JES Methylprednisolone Sodium Succinate (Methylprednisolone Sod Succ 125 Mg/2 Ml Vial) 60 mg IVPUSH Q12H [facility] Last Admin: 08/04/21 10:23 Dose: 60 mg Documented by: JES Metoprolol Tartrate (Metoprolol Tartrate 12.5 Mg Halftab) 12.5 mg PO BID [facility]; P rotocol Last Admin: 08/04/21 10:25 Dose: 12.5 mg Documented by: JES Omeprazole (Omeprazole 40 Mg Capsule.Dr) 40 mg PO BID@0630,1630 [facility] Last Admin: 08/04/21 06:34 Dose: 40 mg Documented by: BAILEY Pharmacy Consult (Consult Rx Perform Med Rec) 1 each MISCELLANE ONCE PRN PRN Reason: Consult order Rivaroxaban (Rivaroxaban 20 Mg Tablet) 20 mg PO DAILY [facility] Last Admin: 08/04/21 10:25 Dose: 20 mg Documented by: JES Sodium Chloride (0.9 % Sodium Chloride Flush 3 Ml Syringe) 3 ml IVFLUSH QSHIFT [facility] Last Admin: 08/04/21 10:06 Dose: 3 ml Documented by: JES Trazodone HCl (Trazodone Hcl 50 Mg Tablet) 150 mg PO BEDTIME [facility] Last Admin: 08/03/21 20:45 Dose: 150 mg Documented by: KRISTAN Labs CBC & Chem 7: 07/30/21 06:29 08/02/21 06:01 Microbiology Microbiology Results: Microbiology 07/29/21 18:39 Blood Culture - Final Blood - Venous No growth after 5 days. 07/29/21 18:19 Blood Culture - Final Blood - Venous No growth after 5 days. Assessment and Plan (1) Acute on chronic diastolic (congestive) heart failure: Status: Acute (2) Pneumonitis: Status: Acute Assessment and Plan: 86-year-old male with extensive past medical history as mentioned above who presents to the hospital with hypoxic respiratory failure found to have pn eumonia 1. acute hypoxic respiratory failure- most likely secondary to pneumonia, viral versus bacterial. ?chest CT shows imaging evidence of COVID-19 pneumonia versus other viral pneumonia although patient is COVID NAAT negative ?respiratory viral panel-neg, vaccinated against COVID-19 continue oxygen supplement, titrate oxygen as tolerated. sob seems slightly better continue doxycycline, continue iv steroids-?? Pneumonitis hypersensitivity. immunologic labs pending 2.cardio:seen patient with elevated trops , chf ?, has pacemaker, afib- probable diastolic chf excerebation: given iv lasix yesterday and today-blood pressure is on the softer side will hold IV Lasix for now. ? trop elevated possible due to chf given digoxin x1 dose on 07/31 hr seems in 60-80:on metoprolol on po lasix 2. community-acquired pneumonia- viral versus bacterial continue? him on IV antibiotic 3. cellulitis- patient has intermittent cellulitis ?left lower extremity continue? with IV antibiotics-doxy day6. 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 HTN:? Hold BP medications due to softer blood pressure. 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 gout-? will start? allopurinol in the setting of GIN 8. COPD- not appear to be in exacerbation, does not have increased cough or sputum production - continue home inhalers DVT prophylaxis:? Xarelto Quality Stroke Does the patient have a stroke diagnosis?: No VTE Prior VTE?: Yes VTE Risk Level:: Medical - moderate - high VTE Device Contraindication: Treatment Not Indicated VTE Drug Contraindication: N/A - Med Ordered
[2021-08-04] MEDS: Docusate Sodium 100 MG CAPSULE PO (17:02)
[2021-08-04] MEDS: traZODone HCL 50 MG TABLET 150 MG PO (20:11)
[2021-08-05] VITALS (7 sets, daily range): BP systolic 152–172; BP diastolic 66–88; PULSE 59–62; RESP 18–19; TEMP 36.2–37.1; O2SAT 92–99
[2021-08-05] MEDS: Omeprazole 40 MG CAPSULE.DR PO ×2 (05:51→15:59)
[2021-08-05] MEDS: methylPREDNISolone Sod Succ 125 MG/2 ML VIAL 60 MG IVPUSH ×2 (05:52→15:58)
[2021-08-05 07:33] LABS: B Type Natriuretic Peptide 814 pg/mL (<100)
[2021-08-05] MEDS: Doxycycline Hyclate 100 MG in 0.9 % Sodium Chloride 250 ML 166.67 MG IV (09:07)
[2021-08-05] MEDS: 0.9 % Sodium Chloride Flush 3 ML SYRINGE IVFLUSH ×3 (09:10→19:52)
[2021-08-05] MEDS: Rivaroxaban 20 MG TABLET PO (09:14)
[2021-08-05] MEDS: Gabapentin 300 MG CAPSULE PO ×3 (09:14→19:51)
[2021-08-05] MEDS: allopurinoL 300 MG TABLET PO (09:14)
[2021-08-05] MEDS: Magnesium Oxide 400 MG TABLET PO ×2 (09:14→15:58)
[2021-08-05] MEDS: Furosemide 40 MG TABLET PO (09:14)
[2021-08-05] MEDS: Metoprolol Tartrate 12.5 MG HALFTAB PO ×2 (09:15→19:51)
[2021-08-05] MEDS: Losartan Potassium 25 MG TABLET PO (09:15)
[2021-08-05] MEDS: Gabapentin 100 MG CAPSULE PO ×3 (09:15→19:51)
[2021-08-05] MEDS: Isosorbide Mononitrate 30 MG TAB.ER.24H PO (09:15)
--- NOTE | 2021-08-05 11:21 | HO.PM.IMPN ---
Subjective Subjective Date of Service: 08/05/21 Interval History: Acute hypoxemic respiratory failure possibly due to hypersensitivity pneumonitis. Review of Systems still sob /cough Denies any new complaint of chest pain or abdominal pain or fever or chills or nausea or vomiting Denies any weakness or numbness. Physical Exam Vital Signs: Vital Signs: Last Vital Signs Temp 97.6 F 08/05/21 11:11 Pulse 60 08/05/21 11:11 Resp 19 08/05/21 11:11 BP 172/84 H 08/05/21 11:11 Pulse Ox 92 08/05/21 11:11 Oxygen Flow Rate 4 07/29/21 15:48 Body Mass Index 36.8 Objective Data Active Medications Acetaminophen (Acetaminophen 325 Mg Tablet) 650 mg PO Q6H PRN PRN Reason: Pain, Mild (Pain Scale 1-3) Last Admin: 08/04/21 16:55 Dose: 650 mg Documented by: PAPO Allopurinol (Allopurinol 300 Mg Tablet) 300 mg PO DAILY [facility] Last Admin: 08/05/21 09:14 Dose: 300 mg Documented by: BIJAN Docusate Sodium (Docusate Sodium 100 Mg Capsule) 100 mg PO DAILY PRN PRN Reason: Constipation Last Admin: 08/04/21 17:02 Dose: 100 mg Documented by: PAPO Doxycycline Hyclate (Doxycycline Hyclate 100 Mg Tablet) 100 mg PO Q12H [facility] Fluticasone/Vilanterol (Fluticasone/Vilanterol 100/25 Blst.W.Dev) 1 puff INHALE DAILY [facility] Last Admin: 08/05/21 07:32 Dose: Not Given Documented by: ADELA Non-Admin Reason: Patient Asleep Furosemide (Furosemide 40 Mg Tablet) 40 mg PO DAILY [facility]; Protocol Last Admin: 08/05/21 09:14 Dose: 40 mg Documented by: BIJAN Gabapentin (Gabapentin 100 Mg Capsule) 100 mg PO TID [facility] Last Admin: 08/05/21 09:15 Dose: 100 mg Documented by: BIJAN Gabapentin (Gabapentin 300 Mg Capsule) 300 mg PO TID [facility] Last Admin: 08/05/21 09:14 Dose: 300 mg Documented by: BIJAN Isosorbide Mononitrate (Isosorbide Mononitrate 30 Mg Tab.Er.24h) 30 mg PO DAILY [facility]; Protocol Last Admin: 08/05/21 09:15 Dose: 30 mg Documented by: BIJAN Losartan Potassium (Losartan Potassium 25 Mg Tablet) 25 mg PO DAILY [facility]; Protocol Last Admin: 08/05/21 09:15 Dose: 25 mg Documented by: BIJAN Magnesium Oxide (Magnesium Oxide 400 Mg Tablet) 400 mg PO BIDPC [facility] Last Admin: 08/05/21 09:14 Dose: 400 mg Documented by: BIJAN Methylprednisolone Sodium Succinate (Methylprednisolone Sod Succ 125 Mg/2 Ml Vial) 60 mg IVPUSH Q12H [facility] Metoprolol Tartrate (Metoprolol Tartrate 12.5 Mg Halftab) 12.5 mg PO BID [facility]; Protocol Last Admin: 08/05/21 09:15 Dose: 12.5 mg Documented by: BIJAN Omeprazole (Omeprazole 40 Mg Capsule.Dr) 40 mg PO BID@0630,1630 [facility] Last Admin: 08/05/21 05:51 Dose: 40 mg Documented by: MURIEL Pharmacy Consult (Consult Rx Perform Med Rec) 1 each MISCELLANE ONCE PRN PRN Reason: Consult order Rivaroxaban (Rivaroxaban 20 Mg Tablet) 20 mg PO DAILY [facility] Last Admin: 08/05/21 09:14 Dose: 20 mg Documented by: BIJAN Sodium Chloride (0.9 % Sodium Chloride Flush 3 Ml Syringe) 3 ml IVFLUSH QSHIFT [facility] Last Admin: 08/05/21 09:10 Dose: 3 ml Documented by: BIJAN Trazodone HCl (Trazodone Hcl 50 Mg Tablet) 150 mg PO BEDTIME [facility] Last Admin: 08/04/21 20:11 Dose: 150 mg Documented by: MURIEL Labs CBC & Chem 7: 07/30/21 06:29 08/02/21 06:01 Labs: Laboratory Results - last 24 hr 08/05/21 06:18 B-Natriuretic Peptide 814 H Microbiology Microbiology Results: Microbiology 07/29/21 18:39 Blood Culture - Final Blood - Venous No growth after 5 days. Assessment and Plan (1) Pneumonitis: Status: Acute (2) Diastolic CHF: Status: Acute Assessment and Plan: 86-year-old male with extensive past medical history as mentioned above who presents to the hospital with hypoxic respiratory failure found to have pneumonia 1. acute hypoxic respiratory failure- most likely secondary to pneumonia, viral versus bacterial,?? Pneumonitis hypersensitivity. ?chest CT shows imaging evidence of COVID-19 pneumonia versus other viral pneumonia although patient is COVID NAAT negative ?respiratory viral panel-neg, vaccinated against COVID-19 sob seems slightly better continue doxycycline, taper iv steroids, continue to taper oxygen as needed. immunologic labs pending Pulmonary follow-up. 2.cardio:seen patient with elevated trops , chf ?, has pacemaker, afib- probable diastolic chf excerebation: given iv lasix yesterday and today-blood pressure is on the softer side will hold IV Lasix for now. ? trop elevated possible due to chf given digoxin x1 dose on 07/31 hr seems in 60-80:on metoprolol on po lasix 2. community-acquired pneumonia- viral versus bacterial continue? him on IV antibiotic 3. cellulitis- patient has intermittent cellulitis ?left lower extremity continue? with IV antibiotics-doxy day7. 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 HTN:? Hold BP medications due to softer blood pressure. 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 gout-? will start? allopurinol in the setting of GIN 8. COPD- not appear to be in exacerbation, does not have increased cough or sputum production - continue home inhalers DVT prophylaxis:? Xarelto Quality Stroke Does the patient have a stroke diagnosis?: No VTE Prior VTE?: Yes VTE Risk Level:: Medical - moderate - high VTE Device Contraindication: Treatment Not Indicated VTE Drug Contraindication: N/A - Med Ordered
[2021-08-05] MEDS: Furosemide 20 MG/2 ML VIAL IVPUSH (15:57)
[2021-08-05] MEDS: traZODone HCL 50 MG TABLET 150 MG PO (19:52)
[2021-08-06] VITALS (7 sets, daily range): BP systolic 137–175; BP diastolic 65–89; PULSE 64–70; RESP 18–20; TEMP 36.4–36.8; O2SAT 92–96
[2021-08-06] MEDS: methylPREDNISolone Sod Succ 125 MG/2 ML VIAL 60 MG IVPUSH (05:11)
[2021-08-06] MEDS: Omeprazole 40 MG CAPSULE.DR PO (05:12)
[2021-08-06 06:55] LABS: B Type Natriuretic Peptide 612 pg/mL (<100)
[2021-08-06 07:02] LABS: Anion Gap 14 (12-20); Blood Urea Nitrogen 30 mg/dL (9-16); Calcium 9.5 mg/dL (8.4-10.2); Carbon Dioxide 35 mmol/L (22-29); Chloride 98 mmol/L (96-108); Creatinine Clr Calc Pharmacy 86.9; Estimated Glomerular Filt Rate > 60; Glucose Random 99 mg/dL (60-115); Potassium 4.5 mmol/L (3.3-5.1); Sodium 142 mmol/L (135-145)
[2021-08-06] MEDS: Fluticasone/Vilanterol 100/25 BLST.W.DEV 1 PUFF INHALE (08:32)
[2021-08-06] MEDS: allopurinoL 300 MG TABLET PO (08:57)
[2021-08-06] MEDS: Gabapentin 100 MG CAPSULE PO ×2 (08:58→14:40)
[2021-08-06] MEDS: Rivaroxaban 20 MG TABLET PO (08:58)
[2021-08-06] MEDS: Losartan Potassium 25 MG TABLET PO (08:58)
[2021-08-06] MEDS: Gabapentin 300 MG CAPSULE PO ×2 (08:58→14:40)
[2021-08-06] MEDS: Isosorbide Mononitrate 30 MG TAB.ER.24H PO (08:58)
[2021-08-06] MEDS: Furosemide 40 MG TABLET PO (08:58)
[2021-08-06] MEDS: Metoprolol Tartrate 12.5 MG HALFTAB PO (08:59)
[2021-08-06] MEDS: Magnesium Oxide 400 MG TABLET PO (08:59)
[2021-08-06] MEDS: 0.9 % Sodium Chloride Flush 3 ML SYRINGE IVFLUSH (09:00)
--- NOTE | 2021-08-06 12:27 | MHC.CM.PN ---
pt to be dcd today at 2:30 to [facility] [phone] donna booked
--- NOTE | 2021-08-06 12:48 | PM.DS ---
DS: Providers Provider Date of Service: 08/06/21 Date of admission: 07/29/21 20:54 Primary care physician: Brea Guevara MD Consults: 07/30/21 08:06 Consult to Pulmonology Routine Consulting Provider: Lm Grant Reason for consultation: acute hypoxemic respiratory failure sec to ? pneumonia Has provider been notified: No 07/31/21 17:20 Consult to Cardiology Routine Consulting Provider: Demetrio Becker Reason for consultation: chf Has provider been notified: No 07/31/21 17:32 Consult to Critical Care Routine Consulting Provider: Willie Monsivais Reason for consultation: chf excerebation/pneumonia -not improving , boderline blood pressure Has provider been notified: No 08/01/21 08:40 Consult to Infectious Diseases Routine Consulting Provider: Miriam Barragan Reason for consultation: Acute hypoxemic respiratory failure-? Related to pneumonia Has provider been notified: No DS: Diagnosis Discharge Diagnosis (1) Pneumonitis: Status: Acute (2) Diastolic CHF: Status: Acute DS: Summary Hospital Course Hospital Course: History of present illness Date of Service: 07/29/21 Chief Complaint: Shortness of breath This is an 86-year-old male with past medical history of CHF, COPD, DVT, history of PE, HTN, gout who presents to the hospital with complaints of shortness of breath for the past 1 week.? Patient reports that his shortness of breath has worsened to occur even at rest, he denies any cough but reports some phlegm production, reports that his lower extremities have been swollen for many years and he has recurrent chronic cellulitis, according to ED reports EMS found patient to be hypoxic in the 80%.? He denies any fever or chills. ? is currently on 4 L of oxygen satting 92%.? Patient otherwise denies any headache, change in vision, no chest pain, no palpitations, no abdominal pain nausea or vomiting, no diarrhea constipation, no urinary symptoms and no numbness tingling and reports progressive generalized weakness over the past 1 week On arrival to the ED patient found to have a temp of a 100.9?, heart rate of 111, respiratory rate of 24, blood pressure of 152/78, satting around 90% on 2 L but does desat to the 80s and therefore increased to about 6 L of oxygen and now satting 94% Labs are significant for WBC count of 5.1, hemoglobin of 10.2 which is around his baseline, PT of 18.8, INR of 1.6, BNP of 344 which is lower than his most recent in beginning of July, Chest CT shows commonly reported imaging feed during of COVID-19 or viral pneumonia is present, not typical of CHF with no pulmonary edema with no pleural effusion COVID-19 negative ?respiratory failure patient will be admitted for further management Hospital course 86-year-old male with past medical history of COPD, hypertension, PE/DVT, on Xarelto admitted to [facility] with a diagnosis of acute hypoxic respiratory failure due to pneumonitis/mild diastolic heart failure, patient treated with IV Lasix, antibiotics and IV steroids with good response currently patient oxygenation is stable 92% on room air, patient was evaluated by data governance consultant and Infectious Disease they recommended steroids and by mouth doxycycline for 7 days, patient has chronic intermittent cellulitis that seems to be stable, has left leg bigger than right leg chronically, since patient is hemodynamically stable with normal blood pressure and pulse he is being discharged to rehab facility due to deconditioning, patient lives at assisted living, patient COVID test and respiratory viral panel is negative , he is being discharged home on tapering dose of steroids and by mouth doxycycline. He has been continued on Xarelto. Time Spent with Patient Time attestation: Total time spent providing and/or coordinating discharge services: Discharge coordination time: Greater than 30 minutes Quality: Stroke Does the patient have a stroke diagnosis?: No Physical Exam Vital Signs: Vital Signs: Last Vital Signs Temp 97.5 F 08/06/21 11:41 Pulse 66 08/06/21 11:41 Resp 20 08/06/21 11:41 BP 137/65 08/06/21 11:41 Pulse Ox 92 08/06/21 11:41 Oxygen Flow Rate 4 07/29/21 15:48 Body Mass Index 36.8 General awake alert x3, no acute distress. Neck supple no JVD. CVS regular rate rhythm, Respiratory lungs clear to auscultation, no respiratory distress, no wheeze, no rhonchi. Gastrointestinal abdomen soft, nontender, bowel sounds audible, no guarding , no rigidity. Extremities bilateral discoloration due to chronic venous stasis left leg bigger than right with mild hyperemia no warmth or tenderness to touch Neuro nonfocal , speech clear. Legally blind Psych appropriate affect DS: Data Data Completed and Pending Labs on day of discharge: Laboratory Results - last 24 hr 08/06/21 08/06/21 06:05 06:05 Sodium 142 Potassium 4.5 Chloride 98 Carbon Dioxide 35 H Anion Gap 14 BUN 30 H Creatinine 0.76 Estim Creat Clear Calc 86.9 Estimated GFR > 60 Random Glucose 99 D Calcium 9.5 B-Natriuretic Peptide 612 H Discharge Plan Discharge Patient Disposition: er [facility] Discharge Diagnosis: Acute hypoxic respiratory failure secondary to pneumonitis/mild diastolic congestive heart failure Referrals: shania cuellar [Other] - 1 Week Brea Guevara MD [Primary Care Provider] - 1 Week Discharge Medications: New doxycycline hyclate 100 mg Tablet 100 mg PO Q12H Qty: 10 RF: 0 prednisone 20 mg tablet 40 mg PO DAILY Qty: 20 RF: 0 Continued omeprazole 40 mg capsule,delayed release(DR/EC) 1 cap PO BID RF: 0 tamsulosin 0.4 mg capsule 1 cap PO DAILY RF: 0 gabapentin 300 mg capsule 1 cap PO TID RF: 0 allopurinol 300 mg tablet 1 tab PO DAILY RF: 0 furosemide 20 mg tablet 2 tab PO DAILY RF: 0 gabapentin 100 mg capsule 1 cap PO TID RF: 0 escitalopram oxalate 20 mg tablet 1 tab PO DAILY RF: 0 valsartan 40 mg tablet 1 tab PO DAILY RF: 0 fenofibrate 160 mg tablet 1 tab PO DAILY RF: 0 Xarelto 20 mg tablet 1 tab PO DAILY RF: 0 Breo Ellipta 100-25 mcg/dose blister with device 1 puff inhalation DAILY RF: 0 magnesium oxide 400 mg (241.3 mg magnesium) Tablet 400 mg PO BIDPC Qty: 60 RF: 0 isosorbide mononitrate 30 mg Tablet Extended Release 24 Hr 30 mg PO DAILY Qty: 30 RF: 0 trazodone 150 mg tablet 1 tab PO BEDTIME RF: 0 Discharge Orders: Discharge Order (Routine); Ordered 08/06/21 Ordered By: Jj Zelaya Diet: low salt diet Activity on Discharge: As tolerated Stand Alone Forms: Patient Portal Discharge page Care Plan Goals: Continue physical therapy for generalized deconditioning, monitor oxygenation keep finger oximetry > 90 Health Concerns: Take all medications as ordered Plan of Treatment: Outpatient follow-up with primary care physician in 1 week, outpatient follow-up with pulmonology as needed Assessment: As above
[2021-08-06 13:01] LABS: COVID-19 Test Negative (Negative)
[2021-08-08 11:47] LABS: Legionella Ag Urine Not Detected (Not Detected)
--- NOTE | 2021-09-04 07:39 | P.CDIR_ITS ---
Documented by User: Myrtle Tesfaye CCS, CDIS 09/04/21 07:46 Retrospective Query PHYSICIAN'S DOCUMENTATION REQUEST Date of Query: 09/04/21 0715 Patient Name: Leonidas Linder Admit Date: 07/29/21 Dear Doctor, A review of the medical record indicates additional documentation may be needed. Please review below and update the documentation accordingly. Clinical Indicators: Consistency of documentation within the medical record: Risk Factors/Clinical Indicators/Treatments Query response 07/30 - Sepsis (poa) Temp 100.9 HR 111 RR 24 with pulse ox 90's dropping to 80's, BP 152/78 IV Azithromycin, Ceftriaxone, IV fluids. Hypoxic placed on 4 liters oxygen increased to 6 liters for acute respiratory failure. CT chest shows Covid-19 or Viral pneumonia vs. bacterial. Also noted patient has cellulitis. Sepsis due to viral pneumonia (POA) or other infectious process Systemic manifestations of infection, with 2 or more SIRS criteria which include: * Fever > 100.4?F or hypothermia < 96.8?F * Leukocytosis ? WBC > 12,000 or leukopenia, WBC < 4,000, or > 10% bands * Tachycardia- > 90 beats/minute * Tachypnea- RR > 20 breaths/minute or PaCO2 < 32mmHg Based on the above information and the recognized standard for sepsis, could you please clarify in the Progress Notes if this diagnoses is still accurate and reflective of the patient's condition to ensure quality of the medical record. * Sepsis is/was present and is a clinical diagnosis based on (please include this additional support in the medical record) * After study (the condition) has been ruled out * Other (please specify) * Unable to determine Use of terms such as suspected, likely, concern for, or probable (associated with a specific diagnosis that is being evaluated, monitored, or treated as if it exists) are acceptable and can be coded in the inpatient setting, when documented at the time of discharge. Thank you, Myrtle Tesfaye CCS, CDIS Extension: [phone] Please use your independent medical judgment in providing your response. THIS QUERY IS PART OF THE PERMANENT MEDICAL RECORD Documented by User: Jj Zelaya MD 09/12/21 15:14 Retrospective Query Provider Response: Sepsis (sepsis present on admission)
== END 2021-08-06 14:55 | disposition skilled nursing facility (03) | DRG 871 ==
LOC: HO.ED 20:05 → HO.EDOVER 21:30 → HO.IMC 22:03
PROVIDERS: Internal Medicine; Internal Medicine Cardiovascular Disease; Physician Assistant; Admitting Provider Internal Medicine; Emergency Provider Internal Medicine; PCP Internal Medicine; Visit Provider Hospitalist
DX: A41.9 Sepsis, unspecified organism (principal); J96.01 Acute respiratory failure with hypoxia; J18.9 Pneumonia, unspecified organism; I50.33 Acute on chronic diastolic (congestive) heart failure; N17.9 Acute kidney failure, unspecified; J44.0 Chronic obstructive pulmonary disease with (acute) lower respiratory infection; L03.116 Cellulitis of left lower limb; M10.9 Gout, unspecified; Z95.0 Presence of cardiac pacemaker; Z20.822 Contact with and (suspected) exposure to COVID-19; I25.10 Atherosclerotic heart disease of native coronary artery without angina pectoris; I11.0 Hypertensive heart disease with heart failure; I87.2 Venous insufficiency (chronic) (peripheral); Z86.711 Personal history of pulmonary embolism; Z87.891 Personal history of nicotine dependence; Z88.0 Allergy status to penicillin; Z88.2 Allergy status to sulfonamides; Z88.5 Allergy status to narcotic agent; Z79.01 Long term (current) use of anticoagulants; Z79.899 Other long term (current) drug therapy
CPT/HCPCS: 36415; 71045; 71250; 80048; 80053; 82785; 82803; 83605; 83735; 83880; 84484; 85025; 85610; 85652; 86038; 86039; 86431; 87040; 87449; 87633; 87635; 93005; 96365; 96367; 96375; 97110; 97162; 99285; J0456; J0696; J1160; J1940; J2930

== ENCOUNTER 2021-08-07 06:20 | Outpatient (REF) | payer SELFPAY ==
[2021-08-07 06:28] LABS: MANUAL DIFF FLAG NO
[2021-08-07 06:38] LABS: Eosinophils Absolute Auto 0.2 X10*3/uL (0.0-0.4); Eosinophils Percent Auto 2.9 % (0-4); Hemoglobin 11.1 g/dl (14.0-18.0); Imm Gran Abs Auto 0.19 X10*3/uL (0.00-0.03); Imm Gran Pct Auto 3.7 % (0.0-0.4); Lymphocytes Absolute Auto 1.3 X10*3/uL (1.2-4.9); Lymphocytes Percent Auto 24.9 % (20-40); Mean Corpuscular HGB Conc 31.7 g/dl (31.0-36.0); Mean Corpuscular Hemoglobin 27.3 pg (27.0-33.0); Mean Corpuscular Volume 86.2 fL (80-98); Mean Platelet Volume 9.9 fL (9.4-12.4); Monocytes Absolute Auto 0.7 X10*3/uL (0.1-1.2); Monocytes Percent Auto 13.3 % (2-11); Neutrophils Absolute Auto 2.8 X10*3/uL (2.0-8.3); Neutrophils Percent Auto 55.2 % (45-73); Platelet Count 300 X10*3/uL (160-400); Red Blood Count 4.06 X10*6/uL (4.60-5.80); Red Cell Distribution Width 15.7 % (11.0-16.0); White Blood Count 5.1 X10*3/uL (4.8-10.8)
[2021-08-07 06:47] LABS: Alanine Aminotransferase 63 U/L (0-40); Albumin Level 3.4 g/dL (3.5-5.0); Alkaline Phosphatase 54 U/L (39-117); Anion Gap 13 (12-20); Aspartate Amino Transferase 54 U/L (5-37); Bilirubin Total 0.6 mg/dL (0.0-1.0); Blood Urea Nitrogen 31 mg/dL (9-16); Calcium 9.2 mg/dL (8.4-10.2); Carbon Dioxide 34 mmol/L (22-29); Chloride 96 mmol/L (96-108); Estimated Glomerular Filt Rate > 60; Glucose Random 78 mg/dL (60-115); Potassium 4.1 mmol/L (3.3-5.1); Sodium 139 mmol/L (135-145); Total Protein 5.7 g/dL (6.5-8.0)
== END 2021-08-07 06:21 | disposition home or self-care (01) ==
LOC: HO.MMNH1L 06:20
PROVIDERS: Visit Provider Family Medicine
DX: J44.9 Chronic obstructive pulmonary disease, unspecified (principal); I50.9 Heart failure, unspecified; J96.90 Respiratory failure, unspecified, unspecified whether with hypoxia or hypercapnia
CPT/HCPCS: 36415; 80053; 85025

== ENCOUNTER 2021-08-12 07:45 | Outpatient (REF) | payer SELFPAY ==
[2021-08-12 06:57] LABS: MANUAL DIFF FLAG NO
[2021-08-12 07:15] LABS: Basophils Percent Auto 0.1 % (0-2); Eosinophils Absolute Auto 0.1 X10*3/uL (0.0-0.4); Eosinophils Percent Auto 1.5 % (0-4); Hematocrit 37.5 % (42.0-52.0); Hemoglobin 11.6 g/dl (14.0-18.0); Imm Gran Pct Auto 2.6 % (0.0-0.4); Lymphocytes Absolute Auto 1.5 X10*3/uL (1.2-4.9); Lymphocytes Percent Auto 19.2 % (20-40); Mean Corpuscular HGB Conc 30.9 g/dl (31.0-36.0); Mean Corpuscular Volume 87.4 fL (80.0-98.0); Mean Platelet Volume 10.6 fL (9.4-12.4); Monocytes Absolute Auto 0.7 X10*3/uL (0.1-1.2); Monocytes Percent Auto 9.2 % (2-11); Neutrophils Absolute Auto 5.28 x10*3/uL (2.0-8.3); Neutrophils Percent Auto 67.4 % (45-73); Platelet Count 266 X10*3/uL (160-400); Red Blood Count 4.29 X10*6/uL (4.60-5.80); Red Cell Distribution Width 16.2 % (11.0-16.0); White Blood Count 7.8 X10*3/uL (4.8-10.8)
[2021-08-12 07:49] LABS: Anion Gap 17 (12-20); Blood Urea Nitrogen 30 mg/dL (9-16); Calcium 9.1 mg/dL (8.4-10.2); Carbon Dioxide 31 mmol/L (22-29); Chloride 97 mmol/L (96-108); Estimated Glomerular Filt Rate > 60; Glucose Random 72 mg/dL (60-115); Potassium 4.3 mmol/L (3.3-5.1); Sodium 141 mmol/L (135-145)
== END 2021-08-12 07:46 | disposition home or self-care (01) ==
LOC: HO.MMNH1L 07:45
PROVIDERS: Visit Provider Family Medicine
DX: I50.9 Heart failure, unspecified (principal); J44.9 Chronic obstructive pulmonary disease, unspecified; J96.90 Respiratory failure, unspecified, unspecified whether with hypoxia or hypercapnia
CPT/HCPCS: 36415; 80048; 85025

== ENCOUNTER 2021-09-16 00:12 | Outpatient (REF) | payer SELFPAY | END 2021-09-16 00:13 | disposition home or self-care (01) | LOC: HO.MMNH1L 00:12 | PROVIDERS: Visit Provider Family Medicine | DX: Z13.89 Encounter for screening for other disorder (principal) ==

== ENCOUNTER 2022-02-25 06:15 | Outpatient (REF) | payer MEDICARE, SELFPAY ==
[2022-02-25 06:49] LABS: Appearance Urine CLOUDY; Color Urine YELLOW; Glucose Urine UA NEG (NEG); Leukocyte Esterase Urine 3+ (NEG); Nitrite Urine POS (NEG); Urine Blood 3+ (NEG); Urine Ketones NEG (NEG); Urine Protein 2+ MG/DL (NEG-TRACE)
[2022-02-25 07:02] LABS: Bacteria Urine 1+ /LPF; WBC Urine TNTC /HPF (0-4)
== END 2022-02-25 06:16 | disposition home or self-care (01) ==
LOC: HO.MMNH3L 06:15
PROVIDERS: Visit Provider Family Medicine
DX: R82.90 Unspecified abnormal findings in urine (principal); N39.0 Urinary tract infection, site not specified
CPT/HCPCS: 81001; 87086

== ENCOUNTER 2022-03-01 21:18 | Inpatient (IN) | payer MEDICARE, MEDICAID, SELFPAY ==
[2022-03-01] VITALS (7 sets, daily range): BP systolic 62–230; BP diastolic 34–200; PULSE 90–110; RESP 20–22; TEMP 37.9–39.8; O2SAT 92–93; BMI 32.4
--- NOTE | 2022-03-01 | ECG_ITS ---
Test Reason : TACHY Blood Pressure : / mmHG Vent. Rate : 103 BPM Atrial Rate : 101 BPM P-R Int : 000 ms QRS Dur : 188 ms QT Int : 438 ms P-R-T Axes : 000 -73 109 degrees QTc Int : 573 ms Ventricular-paced rhythm Abnormal ECG When compared with ECG of 31-JUL-2021 20:11, Electronic ventricular pacemaker has replaced Electronic atrial pacemaker Vent. rate has increased BY 39 BPM Referred By: Generic ED Physician Electronically Signed By:MARIANGEL DONIS
--- NOTE | ~2022-03-01 | CT_ITS ---
EXAMINATION: CT ABDOMEN AND PELVIS WITHOUT CONTRAST CLINICAL INFORMATION: Rule out renal obstruction. Pain. COMPARISON: 01/29/2018 TECHNIQUE: Multidetector volumetric imaging was performed from the superior aspect of the liver through the pubic symphysis. Sagittal and coronal reformatted images were obtained on the technologist's workstation. This CT examination was performed using dose optimization techniques as appropriate, variously including the following: *Automated exposure control *Adjustment of mA and/or kV according to patient size (this includes techniques or standardized protocols for targeted exams where dose is matched to indication/reason for exam; i.e. extremities or head) *Use of iterative reconstruction technique DLP: 808 mGy-cm FINDINGS: LUNG BASES: Enlarged heart. Bibasilar atelectasis. Coronary artery calcifications. Cardiac pacer leads. LIVER, GALLBLADDER, AND BILIARY TREE: The liver is normal in size, shape, and attenuation. No focal hepatic lesion or biliary ductal dilatation is present. Multiple stones in the gallbladder lumen. No wall thickening or adjacent inflammation. PANCREAS: Atrophic with multiple calcifications throughout the pancreatic parenchyma. SPLEEN: Unremarkable. ADRENAL GLANDS: Unremarkable. KIDNEYS AND URETERS: The kidneys are normal in size, shape, and attenuation. No hydronephrosis, hydroureter, or calculi seen. No perinephric stranding. Numerous vascular calcifications throughout. BLADDER: Partially distended with circumferential wall thickening. GASTROINTESTINAL TRACT: The stomach is unremarkable. Normal caliber small bowel. No obstruction. No colonic wall thickening or acute inflammation. There is prominent diverticulosis without diverticulitis. No free air or free fluid. ABDOMINAL WALL: Diffuse rectus diastases with abdominal wall laxity. LYMPH NODES: Normal. VASCULAR: IVC filter. Normal caliber aorta with moderate atherosclerotic calcification. Retroaortic left renal vein. PELVIC VISCERA: The prostate and seminal vesicles are unremarkable. OSSEOUS STRUCTURES: Degenerative changes throughout the spine. DISH. Severe degenerative changes of the right hip. Moderate degenerative change of the left hip. CT/CT abdomen pelvis wo con IMPRESSION: No acute findings of the abdomen or pelvis. No hydronephrosis. No nephrolithiasis. Multiple vascular calcifications throughout the kidneys. Cholelithiasis without evidence for acute cholecystitis. Fleischner guidelines were followed.
--- NOTE | ~2022-03-01 | XR_ITS ---
EXAMINATION: XR CHEST CLINICAL INFORMATION: Central line placement. COMPARISON: 03/01/2022 TECHNIQUE: Frontal view of the chest was obtained. FINDINGS: Left chest wall pacer remains in place. Right internal jugular central venous catheter terminates over the lower SVC. Lung volumes are low. Central vascular prominence without overt edema. No pleural effusion or pneumothorax. The cardiomediastinal silhouette remains prominent, with a calcified aorta. XR/XR chest 1V IMPRESSION: Right internal jugular central venous catheter terminates over the lower SVC. No pneumothorax. Persistent central vascular prominence without overt edema.
--- NOTE | ~2022-03-01 | XR_ITS ---
EXAMINATION: XR CHEST CLINICAL INFORMATION: Febrile. Tachycardia. COMPARISON: 08/02/2021 TECHNIQUE: Frontal view of the chest was obtained. FINDINGS: Dual lead pacemaker is unchanged. Multiple cardiac leads overlie the chest. Calcific atherosclerosis is present in the thoracic aorta. Cardiac and mediastinal contours are unchanged. Chronic atelectasis/pleural parenchymal scarring is evident at the left lung base. No consolidation, pneumothorax, or pleural effusion. Mild pulmonary venous congestion is suspected. No pulmonary edema. No acute osseous findings. Osteoarthritis is present in the acromioclavicular and glenohumeral joints. XR/XR chest 1V IMPRESSION: 1. No acute pulmonary consolidation identified. Persistent atelectasis and scarring in the left lung base. 2. Mild pulmonary venous congestion without pulmonary edema.
[2022-03-01 21:42] LABS: MANUAL DIFF FLAG NO
[2022-03-01 21:48] LABS: Basophils Percent Auto 0.2 % (0-2); Eosinophils Absolute Auto 0.1 X10*3/uL (0.0-0.4); Eosinophils Percent Auto 0.3 % (0-4); Hematocrit 34.2 % (42.0-52.0); Hemoglobin 11.1 g/dl (14.0-18.0); Imm Gran Abs Auto 0.07 X10*3/uL (0.00-0.03); Imm Gran Pct Auto 0.5 % (0.0-0.4); Lymphocytes Absolute Auto 0.9 X10*3/uL (1.2-4.9); Lymphocytes Percent Auto 5.9 % (20-40); Mean Corpuscular HGB Conc 32.5 g/dl (31.0-36.0); Mean Corpuscular Hemoglobin 29.9 pg (27.0-33.0); Mean Corpuscular Volume 92.2 fL (80.0-98.0); Mean Platelet Volume 9.4 fL (9.4-12.4); Monocytes Absolute Auto 1.1 X10*3/uL (0.1-1.2); Monocytes Percent Auto 7.3 % (2-11); Neutrophils Absolute Auto 13.3 x10*3/uL (2.0-8.3); Neutrophils Percent Auto 85.8 % (45-73); Platelet Count 184 X10*3/uL (160-400); Red Blood Count 3.71 X10*6/uL (4.60-5.80); Red Cell Distribution Width 16.1 % (11.0-16.0); White Blood Count 15.5 X10*3/uL (4.8-10.8)
[2022-03-01 21:57] LABS: Lactic Acid 1.4 mmol/L (0.5-2.0)
[2022-03-01 21:59] LABS: INTERNATIONAL NORM RATIO 2.7 (0.9-1.1); Prothrombin Time 31.2 SEC (9.9-13.0)
[2022-03-01] MEDS: 0.9 % Sodium Chloride 2,000 ML 999 ML IVCONT (21:59)
--- NOTE | 2022-03-01 22:01 | ED_ITS ---
HPI - General Adult General Chief complaint: Abdominal Pain Stated complaint: abdominal pain Time Seen by Provider: 03/01/22 21:41 Source: patient Mode of arrival: ambulatory Limitations: no limitations History of Present Illness HPI narrative: Patient comes to the emergency room via EMS from [facility]. For the last 2 days, patient has been complaining of abdominal pain. Patient states that he has been chills for couple of days. On arrival, a rectal temperature shows a fever of 103.7. Related Data Home Medications Medication Instructions Recorded Confirmed allopurinol 300 mg tablet 1 tab PO DAILY 06/21/21 07/29/21 escitalopram oxalate 20 mg tablet 1 tab PO DAILY 06/21/21 07/29/21 fenofibrate 160 mg tablet 1 tab PO DAILY 06/21/21 07/29/21 fluticasone furoate 100 1 puff INHALATION DAILY 06/21/21 07/29/21 mcg-vilanterol 25 mcg/dose inhalation powder (Breo Ellipta) furosemide 20 mg tablet 2 tab PO DAILY 06/21/21 07/29/21 gabapentin 100 mg capsule 1 cap PO TID 06/21/21 07/29/21 gabapentin 300 mg capsule 1 cap PO TID 06/21/21 07/29/21 omeprazole 40 mg capsule,delayed 1 cap PO BID 06/21/21 07/29/21 release rivaroxaban 20 mg tablet (Xarelto) 1 tab PO DAILY 06/21/21 07/29/21 tamsulosin 0.4 mg capsule 1 cap PO DAILY 06/21/21 07/29/21 valsartan 40 mg tablet 1 tab PO DAILY 06/21/21 07/29/21 trazodone 150 mg tablet 1 tab PO BEDTIME 07/29/21 07/29/21 Previous Rx's Medication Instructions Recorded isosorbide mononitrate 30 mg 30 mg PO DAILY #30 tab 07/17/21 tablet,extended release 24 hr magnesium oxide 400 mg (241.3 mg 400 mg PO BIDPC #60 tab 07/17/21 magnesium) tablet doxycycline hyclate 100 mg tablet 100 mg PO Q12H #10 tab 08/06/21 prednisone 20 mg tablet 40 mg PO DAILY #20 tab 08/06/21 Allergies Allergy/AdvReac Type Severity Reaction Status Date / Time levofloxacin [LEVOFLOXACIN] Allergy Severe HYPOTENSION Verified 05/21/22 21:29 Penicillins [PCN] Allergy Severe DIFFICULTY Verified 03/01/22 21:29 BREATHING,RASH penicillin V Allergy Unknown sob/rash Verified 03/01/22 21:29 quinine [QUININE] Allergy Unknown UNKNOWN, ? Verified 03/01/22 21:29 Sulfa (Sulfonamide Allergy Unknown UNSURE Verified 03/01/22 21:29 Antibiotics) [SULFA(SULFONAMIDE ANTIBIOTICS)] morphine [MORPHINE] AdvReac Intermediate HYPOTENSION Verified 03/01/22 21:29 MUSCLE RELAXERS Allergy Severe RASH/IMMOBI Uncoded 03/01/22 21:29 LITY Review of Systems Review of Systems: Constitutional : No Weight loss, complaining chills, No Night Sweats, No Fatigue, No Malaise ENT/Mouth : No Hearing loss, No Ear Pain, No Nasal Congestion, No Sinus Pain, No Hoarseness, No sore throat, No Rhinorrhea, No Swallowing Difficulty Eyes: No Eye Pain, No Swelling, No Redness, No Foreign Body, No Discharge, No Vision Changes Cardiovascular : No Chest Pain, No SOB, No Dyspnea on Exertion, No Orthopnea, No Edema, No Palpitations Respiratory : No Cough, No Sputum, No Wheezing, No Smoke Exposure, No Dyspnea Gastrointestinal : No Nausea, No Vomiting, No Diarrhea, No Constipation, complaining of diffuse abdominal pain, No Hematochezia, No Melena Genitourinary : no irregular bleeding, No Dysuria, No Urinary Frequency, No He maturia, No Urinary Incontinence, No Urgency, No Flank Pain, No Urinary Flow Changes, No Hesitancy Musculoskeletal : No joint pain, No Myalgias, No Joint Swelling Skin : No Skin Lesions, No rash Neuro : No Weakness, No Numbness, No Paresthesias, No Loss of Consciousness, No Dizziness, No Headache Psych : No Anxiety/Panic, No Depression, No SI/HI/AH/VH, No Social Issues, Heme/Lymph: No Bruising, No Bleeding,No Lymphadenopathy Endocrine : No Polyuria, No Polydipsia, No Temperature Intolerance [facility] Past Medical History Medical History Atrial fibrillation BPH (benign prostatic hyperplasia) CHF (congestive heart failure) COPD (chronic obstructive pulmonary disease) Diastolic CHF DVT (deep venous thrombosis) Gout History of pulmonary embolism HTN (hypertension) Hypomagnesemia Hypoxia Pneumonitis Presence of permanent cardiac pacemaker Stasis dermatitis Surgical History Status post placement of cardiac pacemaker Family History Family History Other HTN (hypertension) Heart disease Social History Social History Household Members: None Housing: Assisted Living Facility Do you presently have visiting nurse or other home services: Yes Alcohol intake: never Patient Tobacco Use Status: Former Tobacco user Advance Directives: Yes Advance Directives on File: Yes Advance Directives Date on File: 07/13/21 service: No Current occupational status: retired Physical Exam ED Vital Signs: Vital Signs - 24 hr 03/01/22 21:21 03/01/22 21:55 03/01/22 22:02 Temperature 100.2 F 103.7 F H Pulse Rate 104 H 102 H 101 H Respiratory Rate 22 H 20 Blood Pressure 200/163 H 230/200 H 82/35 L Pulse Oximetry 93 92 93 03/01/22 23:01 03/01/22 23:32 03/01/22 23:33 Temperature Pulse Rate 98 103 H 100 Respiratory Rate 22 H 22 H 22 H Blood Pressure 88/40 L 74/34 L 62/42 L Pulse Oximetry 92 92 92 BMI result Body Mass Index 32.4 Const Other: Appearance: Alert. Oriented X3. No acute distress. Eyes: Pupils equal, round and reactive to light. ENT: Pharynx normal. Neck: Normal inspection. Neck supple. No lymph nodes noted. No crepitus CVS: Normal heart rate and rhythm. Pulses normal. Normal S1 and S2 Respiratory: No respiratory distress. Breath sounds normal. No Wheezing. No rales Abdomen: Soft tender to palpation in the abdomen, seems more distended on the left side than the right side. Skin: Skin very warm to touch and clammy. Normal skin color. Normal skin turgor. Extremities: No lower extremity edema. No Lacerations. No Rash Neuro: Oriented X 3. No motor deficit. No sensory deficit. Moving all extremities. No slurred speech. CN 2 through 12 grossly intact Psych: calm, cooperative, normal affect Course Course Course Narrative: At this time, 22:05, we were able to straight cath the patient, patient has very thick, pus-like and foul-smelling urine. Patient's labs are pending. Patient has been giving IV fluids based on ideal weight of 70 kg, patient is obese. Patient was also started on Levaquin. Levaquin is listed as 1 of the patient's allergies, reaction labeled as ?hypertension?. Patient states that he knows that he is allergic to penicillin, sulfas, but states that he does not recall ever having a reaction to Levaquin. Patient has had multiple blood pressure reads. Initially, patient's blood pressure was in the 230s. Blood pressure was checked multiple times according to the patient's nurse. labetalol PO was ordered. However before the labetalol was given, the blood pressure was checked and it was in the high 80s. Labetalol was not given. Lower getting multiple manual blood pressure reads. No patient has consistently low blood pressure reads in the low 80s high 70s. Patient given more IV fluids, a total of 3 L Nurse practitioner Oanh from the ICU is assisting us today to insert the triple-lumen central line. Patient will be started on Levophed. I discussed the patient with Dr. Monsivais, patient being admitted to the intensive care unit Medical Decision Making Lab Data Result diagrams: 03/01/22 21:36 03/01/22 21:36 Labs: Lab Results 03/01/22 03/01/22 03/01/22 Range/Units 21:36 21:36 21:36 WBC 15.5 H (4.8-10.8) X10*3/uL RBC 3.71 L (4.60-5.80) X10*6/uL Hgb 11.1 L (14.0-18.0) g/dl Hct 34.2 L (42.0-52.0) % MCV 92.2 (80.0-98.0) fL MCH 29.9 (27.0-33.0) pg MCHC 32.5 (31.0-36.0) g/dl RDW 16.1 H (11.0-16.0) % Plt Count 184 D (160-400) X10*3/uL MPV 9.4 (9.4-12.4) fL Immature Gran % (Auto) 0.5 H (0.0-0.4) % Neut % (Auto) 85.8 H (45-73) % Lymph % (Auto) 5.9 L (20-40) % Adams % (Auto) 7.3 (2-11) % Eos % (Auto) 0.3 (0-4) % Baso % (Auto) 0.2 (0-2) % Lymph # (Auto) 0.9 L (1.2-4.9) X10*3/uL Adams # (Auto) 1.1 (0.1-1.2) X10*3/uL Eos # (Auto) 0.1 (0.0-0.4) X10*3/uL Baso # (Auto) 0.0 (0.0-0.2) X10*3/uL Abs Immat Gran (auto) 0.07 H (0.00-0.03) X10*3/uL Absolute Neuts (auto) 13.3 H (2.0-8.3) x10*3/uL Absolute Nucleated RBC 0.000 (0.0-0.012) X10*3/uL Nucleated RBC % (auto) 0.0 (0.0-0.2) /100WBC PT (9.9-13.0) SEC INR (0.9-1.1) APTT (24.1-38.0) SEC Sodium 136 (135-145) mmol/L Potassium 4.4 (3.3-5.1) mmol/L Chloride 98 (96-108) mmol/L Carbon Dioxide 28 (22-29) mmol/L Anion Gap 14 (12-20) BUN 31 H (9-16) mg/dL Creatinine 2.31 H (0.5-1.4) mg/dL Estim Creat Clear Calc 28.5 Estimated GFR 27 Random Glucose 123 H D (60-115) mg/dL Lactic Acid 1.4 (0.5-2.0) mmol/L Calcium 9.2 (8.4-10.2) mg/dL Total Bilirubin 0.9 (0.0-1.0) mg/dL AST 14 D (5-37) U/L ALT 8 (0-40) U/L Alkaline Phosphatase 44 (39-117) U/L Troponin I High Sens (<3.5-35.0) ng/L Total Protein 6.4 L (6.5-8.0) g/dL Albumin 3.8 (3.5-5.0) g/dL Lipase 18 (8-78) U/L Urine Color Urine Appearance Urine pH (5.0-8.0) Ur Specific [place] (1.005-1.025) Urine Protein (NEG-TRACE) MG/DL Urine Glucose (UA) (NEG) MG/DL Urine Ketones (NEG) MG/DL Urine Blood (NEG) Urine Nitrite (NEG) Ur Leukocyte Esterase (NEG) Urine RBC (0) /HPF Urine WBC (0-4) /HPF Ur Squamous Epith Cells /LPF Urine Bacteria /LPF COVID-19 (ESAU) (Negative) COVID-19 Clin Com Influenza Type A (GERARDO) (Negative) Influenza Type B (GERARDO) (Negative) Influenza A & B Note 03/01/22 03/01/22 03/01/22 Range/Units 21:36 21:36 21:36 WBC (4.8-10.8) X10*3/uL RBC (4.60-5.80) X10*6/uL Hgb (14.0-18.0) g/dl Hct (42.0-52.0) % MCV (80.0-98.0) fL MCH (27.0-33.0) pg MCHC (31.0-36.0) g/dl RDW (11.0-16.0) % Plt Count (160-400) X10*3/uL MPV (9.4-12.4) fL Immature Gran % (Auto) (0.0-0.4) % Neut % (Auto) (45-73) % Lymph % (Auto) (20-40) % Adams % (Auto) (2-11) % Eos % (Auto) (0-4) % Baso % (Auto) (0-2) % Lymph # (Auto) (1.2-4.9) X10*3/uL Adams # (Auto) (0.1-1.2) X10*3/uL Eos # (Auto) (0.0-0.4) X10*3/uL Baso # (Auto) (0.0-0.2) X10*3/uL Abs Immat Gran (auto) (0.00-0.03) X10*3/uL Absolute Neuts (auto) (2.0-8.3) x10*3/uL Absolute Nucleated RBC (0.0-0.012) X10*3/uL Nucleated RBC % (auto) (0.0-0.2) /100WBC PT 31.2 H (9.9-13.0) SEC INR 2.7 H (0.9-1.1) APTT 52.6 H (24.1-38.0) SEC Sodium (135-145) mmol/L Potassium (3.3-5.1) mmol/L Chloride (96-108) mmol/L Carbon Dioxide (22-29) mmol/L Anion Gap (12-20) BUN (9-16) mg/dL Creatinine (0.5-1.4) mg/dL Estim Creat Clear Calc Estimated GFR Random Glucose (60-115) mg/dL Lactic Acid (0.5-2.0) mmol/L Calcium (8.4-10.2) mg/dL Total Bilirubin (0.0-1.0) mg/dL AST (5-37) U/L ALT (0-40) U/L Alkaline Phosphatase (39-117) U/L Troponin I High Sens 29.3 (<3.5-35.0) ng/L Total Protein (6.5-8.0) g/dL Albumin (3.5-5.0) g/dL Lipase (8-78) U/L Urine Color Urine Appearance Urine pH (5.0-8.0) Ur Specific [place] (1.005-1.025) Urine Protein (NEG-TRACE) MG/DL Urine Glucose (UA) (NEG) MG/DL Urine Ketones (NEG) MG/DL Urine Blood (NEG) Urine Nitrite (NEG) Ur Leukocyte Esterase (NEG) Urine RBC (0) /HPF Urine WBC (0-4) /HPF Ur Squamous Epith Cells /LPF Urine Bacteria /LPF COVID-19 (ESAU) Negative (Negative) COVID-19 Clin Com See Note Influenza Type A (GERARDO) (Negative) Influenza Type B (GERARDO) (Negative) Influenza A & B Note 03/01/22 03/01/22 Range/Units 21:52 21:58 WBC (4.8-10.8) X10*3/uL RBC (4.60-5.80) X10*6/uL Hgb (14.0-18.0) g/dl Hct (42.0-52.0) % MCV (80.0-98.0) fL MCH (27.0-33.0) pg MCHC (31.0-36.0) g/dl RDW (11.0-16.0) % Plt Count (160-400) X10*3/uL MPV (9.4-12.4) fL Immature Gran % (Auto) (0.0-0.4) % Neut % (Auto) (45-73) % Lymph % (Auto) (20-40) % Adams % (Auto) (2-11) % Eos % (Auto) (0-4) % Baso % (Auto) (0-2) % Lymph # (Auto) (1.2-4.9) X10*3/uL Adams # (Auto) (0.1-1.2) X10*3/uL Eos # (Auto) (0.0-0.4) X10*3/uL Baso # (Auto) (0.0-0.2) X10*3/uL Abs Immat Gran (auto) (0.00-0.03) X10*3/uL Absolute Neuts (auto) (2.0-8.3) x10*3/uL Absolute Nucleated RBC (0.0-0.012) X10*3/uL Nucleated RBC % (auto) (0.0-0.2) /100WBC PT (9.9-13.0) SEC INR (0.9-1.1) APTT (24.1-38.0) SEC Sodium (135-145) mmol/L Potassium (3.3-5.1) mmol/L Chloride (96-108) mmol/L Carbon Dioxide (22-29) mmol/L Anion Gap (12-20) BUN (9-16) mg/dL Creatinine (0.5-1.4) mg/dL Estim Creat Clear Calc Estimated GFR Random Glucose (60-115) mg/dL Lactic Acid (0.5-2.0) mmol/L Calcium (8.4-10.2) mg/dL Total Bilirubin (0.0-1.0) mg/dL AST (5-37) U/L ALT (0-40) U/L Alkaline Phosphatase (39-117) U/L Troponin I High Sens (<3.5-35.0) ng/L Total Protein (6.5-8.0) g/dL Albumin (3.5-5.0) g/dL Lipase (8-78) U/L Urine Color DK YELLOW Urine Appearance CLOUDY Urine pH 6.0 (5.0-8.0) Ur Specific [place] 1.020 (1.005-1.025) Urine Protein 2+ H (NEG-TRACE) MG/DL Urine Glucose (UA) NEG (NEG) MG/DL Urine Ketones NEG (NEG) MG/DL Urine Blood 3+ H (NEG) Urine Nitrite NEG (NEG) Ur Leukocyte Esterase 3+ H (NEG) Urine RBC 1-4 (0) /HPF Urine WBC TNTC H (0-4) /HPF Ur Squamous Epith Cells NONE /LPF Urine Bacteria 3+ /LPF COVID-19 (ESAU) (Negative) COVID-19 Clin Com Influenza Type A (GERARDO) Negative (Negative) Influenza Type B (GERARDO) Negative (Negative) Influenza A & B Note See Note Critical Care Time Critical Care Time Critical Care Time: Yes Total Critical Care Time: 90 Attestation: I have personally provided critical care time. Time includes review of lab data, radiology results, discussion with consultants, and monitoring for potential decompensation. Intervention performed as documented. Discharge Plan Discharge Clinical Impression: Sepsis secondary to UTI, Acute kidney injury Patient Disposition: Admitted As Inpatient Prescriptions: No Action omeprazole 40 mg capsule,delayed release(DR/EC) 1 cap PO BID 0RF tamsulosin 0.4 mg capsule 1 cap PO DAILY 0RF gabapentin 300 mg capsule 1 cap PO TID 0RF allopurinol 300 mg tablet 1 tab PO DAILY 0RF furosemide 20 mg tablet 2 tab PO DAILY 0RF gabapentin 100 mg capsule 1 cap PO TID 0RF escitalopram oxalate 20 mg tablet 1 tab PO DAILY 0RF valsartan 40 mg tablet 1 tab PO DAILY 0RF fenofibrate 160 mg tablet 1 tab PO DAILY 0RF Xarelto 20 mg tablet 1 tab PO DAILY 0RF Breo Ellipta 100-25 mcg/dose blister with device 1 puff inhalation DAILY 0RF magnesium oxide 400 mg (241.3 mg magnesium) Tablet 400 mg PO BIDPC Qty: 60 0RF isosorbide mononitrate 30 mg Tablet Extended Release 24 Hr 30 mg PO DAILY Qty: 30 0RF Protocol: Hold for SBP< HOLD for SBP < : 90 trazodone 150 mg tablet 1 tab PO BEDTIME 0RF doxycycline hyclate 100 mg Tablet 100 mg PO Q12H Qty: 10 0RF prednisone 20 mg tablet 40 mg PO DAILY Qty: 20 0RF Rx Instructions: give prednisone ( 2 tabs 20mg)40mg po daily x 4 days than prednisone 20mg po daily x 4 days prednosone (i/2 tab 20mg) 10mg daily x 4 days
[2022-03-01 22:02] LABS: Partial Thromboplastin Time 52.6 SEC (24.1-38.0)
[2022-03-01 22:05] LABS: Alanine Aminotransferase 8 U/L (0-40); Albumin Level 3.8 g/dL (3.5-5.0); Alkaline Phosphatase 44 U/L (39-117); Anion Gap 14 (12-20); Aspartate Amino Transferase 14 U/L (5-37); Bilirubin Total 0.9 mg/dL (0.0-1.0); Blood Urea Nitrogen 31 mg/dL (9-16); Calcium 9.2 mg/dL (8.4-10.2); Carbon Dioxide 28 mmol/L (22-29); Chloride 98 mmol/L (96-108); Creatinine Clr Calc Pharmacy 28.5; Estimated Glomerular Filt Rate 27; Glucose Random 123 mg/dL (60-115); Lipase 18 U/L (8-78); Potassium 4.4 mmol/L (3.3-5.1); Sodium 136 mmol/L (135-145); Total Protein 6.4 g/dL (6.5-8.0)
[2022-03-01 22:06] LABS: Troponin-I High Sensitivity 29.3 ng/L (<3.5-35.0)
[2022-03-01 22:07] LABS: Appearance Urine CLOUDY; Color Urine DK YELLOW; Glucose Urine UA NEG (NEG); Leukocyte Esterase Urine 3+ (NEG); Nitrite Urine NEG (NEG); UACC Culture Trigger YES; Urine Blood 3+ (NEG); Urine Ketones NEG (NEG); Urine Protein 2+ MG/DL (NEG-TRACE)
[2022-03-01] MEDS: levoFLOXacin/D5W 500 MG/100 ML PIGGYBACK 100 MG IV (22:07)
[2022-03-01] MEDS: 0.9 % Sodium Chloride 2,500 ML 999 ML IVCONT (22:08)
[2022-03-01 22:12] LABS: Influenza A Negative (Negative); Influenza B2 Negative (Negative)
[2022-03-01 22:12] LABS: COVID-19 Test Negative (Negative); IDNOW Serial# 16C4AD1C
[2022-03-01] MEDS: Acetaminophen 325 MG TABLET 975 MG PO (22:14)
[2022-03-01 22:35] LABS: Bacteria Urine 3+ /LPF; WBC Urine TNTC /HPF (0-4)
[2022-03-01] MEDS: 0.9 % Sodium Chloride 1,000 ML 999 ML IVCONT (23:32)
[2022-03-02] VITALS (34 sets, daily range): BP systolic 87–153; BP diastolic 45–79; PULSE 77–113; RESP 9–40; TEMP 38.2–40.7; O2SAT 90–97; BMI 32.7
--- NOTE | 2022-03-02 00:49 | PM.CCHP ---
History of Present Illness Date of Service: 03/01/22 <Amber Hugo PA-C - Last Filed: 03/02/22 03:53> Attending physician on admission: Willie Monsivais <Amber Hugo PA-C - Last Filed: 03/02/22 03:53> Chief Complaint: chills <Amber Hugo PA-C - Last Filed: 03/02/22 03:53> patient is an 86-year-old male with a past medical history of diastolic congestive heart failure on Lasix, ppm, BPH, afib and dvt on Xaralto, hypomag, gout coming from [facility] complaining of a few days of chills. Patient states that the [employer] SPOTTER at [facility] had been remarking for the last few days about how cloudy his urine loocked. He also states he has had lower abdominal pain and chills but when they took his temperature with a forehead probe, it showed no fever. He denies any blood in his urine, chest pain, shortness of breath or leg pain. Patient states he has been on antibiotics recently as a prophylaxis to having some teeth removed but he states he finishd those antibiotics approximately 3 weeks ago, prior to these symptoms starting. He states he had his dental procedure on his lower teeth 3 weeks ago, he denies pain or tenderness in the area. Vital signs upon arrival were notable for initially being hypertensive with a systolic in the low 200's, checked manually, but then rapidly his blood pressure dropped to the low 80s. Labetalol was ordered but it was not given per Dr. Coe. Labs were remarkable for a white count of 15.5, PTT 31.2, INR 2.7, BUN 31, creatinine 2.31, this is above the patient's baseline of 1.00, urine was remarkable for 2+ protein, 3+ blood, 3+ leukocyte esterase and TNTC white blood cells in the urine. Lactic acid was 1.4. BC pending. Pt rec'd 3L NS in the ED. I will place a TLC so the patient can get Levophed to support his blood pressure, I spoke with Dr. Monsivais, patient will be admitted to the ICU for urosepsis. 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 <Amber Hugo PA-C - Last Filed: 03/02/22 03:53> Family History Family History: Family History Other HTN (hypertension) Heart disease <Amber Hugo PA-C - Last Filed: 03/02/22 03:53> Surgical History Surgical History: Surgical History Status post placement of cardiac pacemaker <Amber Hugo PA-C - Last Filed: 03/02/22 03:53> Social History Social History: Social History Household Members: None Housing: Assisted Living Facility Do you presently have visiting nurse or other home services: Yes Alcohol intake: never Patient Tobacco Use Status: Former Tobacco user Advance Directives: Yes Advance Directives on File: Yes Advance Directives Date on File: 07/13/21 service: No Current occupational status: retired <Amber Hugo PA-C - Last Filed: 03/02/22 03:53> Meds Allergies/Adverse reactions: Allergies Allergy/AdvReac Type Severity Reaction Status Date / Time levofloxacin [LEVOFLOXACIN] Allergy Severe HYPOTENSION Verified 03/01/22 21:29 Penicillins [PCN] Allergy Severe DIFFICULTY Verified 03/01/22 21:29 BREATHING,RASH penicillin V Allergy Unknown sob/rash Verified 03/01/22 21:29 quinine [QUININE] Allergy Unknown UNKNOWN, ? Verified 03/01/22 21:29 Sulfa (Sulfonamide Allergy Unknown UNSURE Verified 03/01/22 21:29 Antibiotics) [SULFA(SULFONAMIDE ANTIBIOTICS)] morphine [MORPHINE] AdvReac Intermediate HYPOTENSION Verified 03/01/22 21:29 MUSCLE RELAXERS Allergy Severe RASH/IMMOBI Uncoded 03/01/22 21:29 LITY <Amber Hugo PA-C - Last Filed: 03/02/22 03:53> Active Medications: Current Medications Norepinephrine Bitartrate (Levophed) 8 mg in 250 mls @ 0 mls/hr IVCONT .Q0M MACIEJ; Protocol Last Titration: 03/02/22 00:35 Dose: 0.07 mcg/kg/min, 13.47 mls/hr Documented by: Levofloxacin (Levaquin) 750 mg in 150 mls @ 100 mls/hr IV Q24H MACIEJ Rivaroxaban (Rivaroxaban 10 Mg Tablet) 10 mg PO DAILY [facility] <Amber Hugo PA-C - Last Filed: 03/02/22 03:53> Home medications: Home Medications Medication Instructions Recorded Confirmed Last Taken Type allopurinol 300 mg tablet 1 tab PO DAILY 06/21/21 03/02/22 03/01/22 History escitalopram oxalate 20 mg tablet 1 tab PO DAILY 06/21/21 03/02/22 03/01/22 History fenofibrate 160 mg tablet 1 tab PO DAILY 06/21/21 03/02/22 03/01/22 History fluticasone furoate 100 1 puff INHALATION DAILY 06/21/21 03/02/22 03/01/22 History mcg-vilanterol 25 mcg/dose inhalation powder (Breo Ellipta) furosemide 20 mg tablet 3 tab PO DAILY 06/21/21 03/02/22 03/01/22 History gabapentin 300 mg capsule 1 cap PO TID 06/21/21 03/02/22 03/01/22 History rivaroxaban 20 mg tablet (Xarelto) 1 tab PO DAILY@1700 06/21/21 03/02/22 03/01/22 History tamsulosin 0.4 mg capsule 1 cap PO DAILY@1700 06/21/21 03/02/22 03/01/22 History valsartan 40 mg tablet 1 tab PO DAILY 06/21/21 03/02/22 03/01/22 History trazodone 150 mg tablet 1 tab PO BEDTIME 07/29/21 03/02/22 03/01/22 History acetaminophen 325 mg tablet 975 mg PO TID 03/02/22 03/02/22 03/01/22 History benzocaine 15 mg-menthol 2.6 mg 1 rebecca MUCOUS MEMBRANE Q2H PRN 03/02/22 03/02/22 Unknown History lozenges (Cepacol Sore Throat (benzocaine-menthol)) bisacodyl 10 mg rectal suppository 10 mg NE Q24H PRN 03/02/22 03/02/22 Unknown History (Dulcolax (bisacodyl)) isosorbide mononitrate 30 mg 30 mg PO DAILY 03/02/22 03/02/22 03/01/22 History tablet,extended release 24 hr lorazepam 0.5 mg tablet 0.5 mg PO DAILY 03/02/22 03/02/22 03/01/22 History magnesium hydroxide 400 mg/5 mL 30 ml PO Q24H PRN 03/02/22 03/02/22 Unknown History oral suspension (Milk of Magnesia) pantoprazole 40 mg tablet,delayed 40 mg PO BID@0630,1630 03/02/22 03/02/22 03/01/22 History release (Protonix) tramadol 50 mg tablet 50 mg PO Q12H PRN 03/02/22 03/02/22 Unknown History <Amber Hugo PA-C - Last Filed: 03/02/22 03:53> Physical Exam Vital Signs: Vital Signs: Last Vital Signs Temp 103.7 F H 03/01/22 21:55 Pulse 98 03/02/22 00:45 Resp 18 03/02/22 00:45 BP 122/66 03/02/22 00:45 Pulse Ox 94 03/02/22 00:45 BMI result Body Mass Index 32.4 <Amber Hugo PA-C - Last Filed: 03/02/22 03:53> Const: General: cooperative, healthy appearing, comfortable, no acute distress and well developed <Amber Hugo PA-C - Last Filed: 03/02/22 03:53> Nutritional Appearance: obese <Amber Hugo PA-C - Last Filed: 03/02/22 03:53> Orientation/consciousness: patient oriented x3 <OLAMIDE Bradley Last Filed: 03/02/22 03:53> Limitations: no limitations <Amber Hugo PA-C - Last Filed: 03/02/22 03:53> HEENT: Head: Yes normal to inspection <Amber Hugo PA-C - Last Filed: 03/02/22 03:53> Face and sinus: Yes normal facial exam <Amber Hugo PA-C - Last Filed: 03/02/22 03:53> Mouth: Normal oral and palatal mucosa present <Amber Hugo PA-C - Last Filed: 03/02/22 03:53> Teeth and gingiva: edentulous <Amber Hugo PA-C - Last Filed: 03/02/22 03:53> Eyes: General: appearance normal, both eyes and all related structures <Amber Hugo PA-C - Last Filed: 03/02/22 03:53> Neck: Neck: Yes normal visual inspection and Yes full ROM <Amber Hugo PA-C - Last Filed: 03/02/22 03:53> Resp: Effort & Inspection: normal respiratory effort and able to speak in complete sentences <Amber Hugo PA-C - Last Filed: 03/02/22 03:53> Auscultation: clear to auscultation bilaterally <Amber Hugo PA-C - Last Filed: 03/02/22 03:53> Cardio: Rate: Other (irregular rate) <Amber Hugo PA-C - Last Filed: 03/02/22 03:53> Rhythm: abnormal rhythm <Amber Hugo PA-C - Last Filed: 03/02/22 03:53> Heart sounds: normal S1 and S2 <Amber Hugo PA-C - Last Filed: 03/02/22 03:53> GI: Inspection: Yes obesity <Amber Hugo PA-C - Last Filed: 03/02/22 03:53> Palpation (GI): Soft to palpation and nontender <Amber Hugo PA-C - Last Filed: 03/02/22 03:53> Skin: General skin exam: no rashes or lesions noted <Amber Hugo PA-C - Last Filed: 03/02/22 03:53> Neuro: General: patient oriented x3 <Amber Hugo PA-C - Last Filed: 03/02/22 03:53> Extrem: General: Yes normal to inspection, Yes no pedal edema and Yes no calf tenderness <Amber Hugo PA-C - Last Filed: 03/02/22 03:53> Results Labs CBC and Chem 7: : 03/02/22 05:20 03/02/22 05:20 <Amber Hugo PA-C - Last Filed: 03/02/22 03:53> Labs: Laboratory Results - last 24 hr 03/01/22 03/01/22 03/01/22 21:36 21:36 21:36 MCV 92.2 MCH 29.9 MCHC 32.5 RDW 16.1 H Plt Count 184 D MPV 9.4 Immature Gran % (Auto) 0.5 H Neut % (Auto) 85.8 H Lymph % (Auto) 5.9 L [place] % (Auto) 7.3 Eos % (Auto) 0.3 Baso % (Auto) 0.2 Lymph # (Auto) 0.9 L [place] # (Auto) 1.1 Eos # (Auto) 0.1 Baso # (Auto) 0.0 Abs Immat Gran (auto) 0.07 H Absolute Neuts (auto) 13.3 H Absolute Nucleated RBC 0.000 Nucleated RBC % (auto) 0.0 PT INR APTT Anion Gap 14 Estim Creat Clear Calc 28.5 Estimated GFR 27 Random Glucose 123 H D Lactic Acid 1.4 Calcium 9.2 Total Bilirubin 0.9 AST 14 D ALT 8 Alkaline Phosphatase 44 Troponin I High Sens Total Protein 6.4 L Albumin 3.8 Lipase 18 Urine Color Urine Appearance Urine pH Ur Specific [place] Urine Protein Urine Glucose (UA) Urine Ketones Urine Blood Urine Nitrite Ur Leukocyte Esterase Urine RBC Urine WBC Ur Squamous Epith Cells Urine Bacteria COVID-19 (ESAU) COVID-19 Clin Com Influenza Type A (GERARDO) Influenza Type B (GERARDO) Influenza A & B Note 03/01/22 03/01/22 03/01/22 21:36 21:36 21:36 MCV MCH MCHC RDW Plt Count MPV Immature Gran % (Auto) Neut % (Auto) Lymph % (Auto) [place] % (Auto) Eos % (Auto) Baso % (Auto) Lymph # (Auto) [place] # (Auto) Eos # (Auto) Baso # (Auto) Abs Immat Gran (auto) Absolute Neuts (auto) Absolute Nucleated RBC Nucleated RBC % (auto) PT 31.2 H INR 2.7 H APTT 52.6 H Anion Gap Estim Creat Clear Calc Estimated GFR Random Glucose Lactic Acid Calcium Total Bilirubin AST ALT Alkaline Phosphatase Troponin I High Sens 29.3 Total Protein Albumin Lipase Urine Color Urine Appearance Urine pH Ur Specific [place] Urine Protein Urine Glucose (UA) Urine Ketones Urine Blood Urine Nitrite Ur Leukocyte Esterase Urine RBC Urine WBC Ur Squamous Epith Cells Urine Bacteria COVID-19 (ESAU) Negative COVID-19 Clin Com See Note Influenza Type A (GERARDO) Influenza Type B (GERARDO) Influenza A & B Note 03/01/22 03/01/22 21:52 21:58 MCV MCH MCHC RDW Plt Count MPV Immature Gran % (Auto) Neut % (Auto) Lymph % (Auto) [place] % (Auto) Eos % (Auto) Baso % (Auto) Lymph # (Auto) [place] # (Auto) Eos # (Auto) Baso # (Auto) Abs Immat Gran (auto) Absolute Neuts (auto) Absolute Nucleated RBC Nucleated RBC % (auto) PT INR APTT Anion Gap Estim Creat Clear Calc Estimated GFR Random Glucose Lactic Acid Calcium Total Bilirubin AST ALT Alkaline Phosphatase Troponin I High Sens Total Protein Albumin Lipase Urine Color DK YELLOW Urine Appearance CLOUDY Urine pH 6.0 Ur Specific [place] 1.020 Urine Protein 2+ H Urine Glucose (UA) NEG Urine Ketones NEG Urine Blood 3+ H Urine Nitrite NEG Ur Leukocyte Esterase 3+ H Urine RBC 1-4 Urine WBC TNTC H Ur Squamous Epith Cells NONE Urine Bacteria 3+ COVID-19 (ESAU) COVID-19 Clin Com Influenza Type A (GERARDO) Negative Influenza Type B (GERARDO) Negative Influenza A & B Note See Note <Amber Hugo PA-C - Last Filed: 03/02/22 03:53> Imaging Radiologist's Impressions: Impressions Chest X-Ray 03/01/22 22:25 IMPRESSION: 1. No acute pulmonary consolidation identified. Persistent atelectasis and scarring in the left lung base. 2. Mild pulmonary venous congestion without pulmonary edema. Abdomen/Pelvis CT 03/01/22 22:30 IMPRESSION: No acute findings of the abdomen or pelvis. No hydronephrosis. No nephrolithiasis. Multiple vascular calcifications throughout the kidneys. Cholelithiasis without evidence for acute cholecystitis. Fleischner guidelines were followed. Chest X-Ray 03/02/22 00:26 IMPRESSION: Right internal jugular central venous catheter terminates over the lower SVC. No pneumothorax. Persistent central vascular prominence without overt edema. <OLAMIDE Bradley Last Filed: 03/02/22 03:53> Assessment and Plan (1) Sepsis secondary to UTI: Status: Acute <OLAMIDE Bradley Last Filed: 03/02/22 03:53> 3 L normal saline given in the emergency department as well as Levaquin. levophed for blood pressure support. <OLAMIDE Bradley Last Filed: 03/02/22 03:53> (2) Acute kidney injury: Status: Acute <OLAMIDE Bradley Last Filed: 03/02/22 03:53> avoid nephrotoxic medications, monitor renal indices. <OLAMIDE Bradley Last Filed: 03/02/22 03:53> Plan DVT PPX will continue pt's home meds Xarelto <OLAMIDE Bradley Last Filed: 03/02/22 03:53> Critical Care Time Critical Care Time (minutes): 60 <OLAMIDE Bradley Last Filed: 03/02/22 03:53>
--- NOTE | 2022-03-02 00:58 | PC.NURSE ---
Order for 2,000 mL of NS at 21:52 entered in error, not given. Patient received a total of 3500 mL NS infused at 0030
[2022-03-02] MEDS: Acetaminophen Supp 650 MG SUPP.RECT PR (02:38)
--- NOTE | 2022-03-02 02:51 | W.PM.CCHP ---
Procedures Date of Service Date of Service: 03/01/22 <Amber Hugo PA-C - Last Filed: 03/02/22 02:52> Central Line Placement Right IJ: Central Line Comments: venous access for pressors <OLAMIDE Bradley Last Filed: 03/02/22 02:52> Consent for Procedure: Emergent-no informed consent obtained <OLAMIDE Bradley Last Filed: 03/02/22 02:52> Time out performed: Yes <OLAMIDE Bradley Last Filed: 03/02/22 02:52> Sterile Technique Used: Yes <Amber Hugo PA-C - Last Filed: 03/02/22 02:52> Patient placed on monitor/pulse ox: Yes <OLAMIDE Bradley Last Filed: 03/02/22 02:52> MD prep: mask, gown and gloves <OLAMIDE Bradley Last Filed: 03/02/22 02:52> Central line prep: Chlorhexidine scrub and sterile drapes applied <OLAMIDE Bradley Last Filed: 03/02/22 02:52> Local anesthesia used: lidocaine 2% <OLAMIDE Bradley Last Filed: 03/02/22 02:52> Amount of anesthesia used (ml): 4 <OLAMIDE Bradley Last Filed: 03/02/22 02:52> Ultrasound used for placement: Yes <OLAMIDE Bradley Last Filed: 03/02/22 02:52> Central line lumen inserted: triple <OLAMIDE Bradley Last Filed: 03/02/22 02:52> Post procedure: sutured in place, good blood return, all ports aspirated, flushed, capped and sterile dressing applied <OLAMIDE Bradley Last Filed: 03/02/22 02:52> Post procedure x-ray: tip of catheter in good position and no pneumothorax seen <OLAMIDE Bradley Last Filed: 03/02/22 02:52> Patient tolerated procedure: well and no complications <OLAMIDE Bradley Last Filed: 03/02/22 02:52> Complications: none <Amber Hugo PA-C - Last Filed: 03/02/22 02:52>
--- NOTE | 2022-03-02 04:49 | PC.NURSE ---
ADMIT TO [id number] ER DEPT..ALERT..ORIENTED X3..SPEECH CLEAR..LEGALLY BLIND PER PATIENT...RESPIRATIONS EASY ON ROOM AIR...ATRIAL FIB WITH PACED BEATS...RIGHT JUGULAR TLC IN PLACE LEVOPHED 0.1MCG/KG/MIN.....CVP=8-9...DUMONT DRAINING SEDIMENTED YELLOW URINE...TEMP 104.2 VIA DUMONT...RECEIVED TYLENOL 02:40 IN ER DEPT 1 HOUR EARLIER..ASYMPTOMATIC...CURRENT DGMV=920.1..TAKING FLUIDS W/O DIFFICULTY..NAPPING INTERMITTANTLY
[2022-03-02 05:38] LABS: MANUAL DIFF FLAG NO
[2022-03-02 05:42] LABS: Basophils Percent Auto 0.2 % (0-2); Eosinophils Percent Auto 0.1 % (0-4); Hematocrit 32.9 % (42.0-52.0); Hemoglobin 10.6 g/dl (14.0-18.0); Imm Gran Abs Auto 0.11 X10*3/uL (0.00-0.03); Imm Gran Pct Auto 0.7 % (0.0-0.4); Lymphocytes Absolute Auto 0.5 X10*3/uL (1.2-4.9); Lymphocytes Percent Auto 2.7 % (20-40); Mean Corpuscular HGB Conc 32.2 g/dl (31.0-36.0); Mean Corpuscular Hemoglobin 30.2 pg (27.0-33.0); Mean Corpuscular Volume 93.7 fL (80.0-98.0); Monocytes Absolute Auto 1.1 X10*3/uL (0.1-1.2); Monocytes Percent Auto 6.6 % (2-11); Neutrophils Absolute Auto 14.8 x10*3/uL (2.0-8.3); Neutrophils Percent Auto 89.7 % (45-73); Platelet Count 188 X10*3/uL (160-400); Red Blood Count 3.51 X10*6/uL (4.60-5.80); Red Cell Distribution Width 16.3 % (11.0-16.0); White Blood Count 16.5 X10*3/uL (4.8-10.8)
[2022-03-02 06:04] LABS: Alanine Aminotransferase 7 U/L (0-40); Albumin Level 3.4 g/dL (3.5-5.0); Alkaline Phosphatase 42 U/L (39-117); Anion Gap 14 (12-20); Aspartate Amino Transferase 15 U/L (5-37); Bilirubin Direct 0.6 mg/dL (0.0-0.5); Blood Urea Nitrogen 28 mg/dL (9-16); Calcium 8.4 mg/dL (8.4-10.2); Carbon Dioxide 25 mmol/L (22-29); Chloride 101 mmol/L (96-108); Creatinine Clr Calc Pharmacy 34.9; Estimated Glomerular Filt Rate 34; Glucose Random 119 mg/dL (60-115); Magnesium 1.5 mg/dL (1.6-2.6); Phosphorus 2.1 mg/dL (2.7-4.5); Potassium 3.7 mmol/L (3.3-5.1); Sodium 136 mmol/L (135-145); Total Protein 5.8 g/dL (6.5-8.0)
[2022-03-02 06:04] LABS: B Type Natriuretic Peptide 888 pg/mL (<100)
[2022-03-02] MEDS: Acetaminophen 325 MG TABLET 975 MG PO ×2 (07:53→13:57)
[2022-03-02] MEDS: Rivaroxaban 10 MG TABLET PO (07:53)
--- NOTE | 2022-03-02 07:59 | PHA.MEDREC ---
Pharmacy Consult ? Medication Reconciliation Pharmacy has completed the medication reconciliation. List from [facility]
--- NOTE | 2022-03-02 08:00 | PC.NURSE ---
Pt with Temp of 103.3, given 975 mg of Tylenol
--- NOTE | 2022-03-02 12:52 | MHC.CM.PN ---
Pt is presently in ICU on pressor support for urosepsis: tired and suggested I contact his HCP/dtr Anila. Per Anila, pt is now a LTC resdient of [facility] (NOT [facility] as listed in the H&P and ED summary). He has a HCP/POA/living will on file and has been fully vaxed and boosted. Pt is legally blind but able to complete ADL's with assistance. D/C plan is for a return to SNF via BLS when medically stable. CM to follow for d/c finalization
--- NOTE | 2022-03-02 13:34 | PM.CCPN ---
Subjective Subjective Date of Service: 03/02/22 Interval History: 86-year-old male presents with fever and chills and apparent Gram-negative urosepsis currently looking well on on Levaquin as is treatment and of course fluid resuscitation and still requiring small dose of Levophed but doing much better Background history of paroxysmal atrial fibrillation and dual-chamber pacemaker so this intermittent ventricular pacing I have not noticed any atrial pacing any goes back and forth quite frequently between sinus rhythm in atrial fibrillation/flutter with appropriate functioning on the part of the pacemaker Bedside echo shows normal LV function ejection fraction probably exceeding 70% no primary valve or pericardial disease Critical Care Time (minutes): 45 Physical Exam Vital Signs: Vital Signs: Last Vital Signs Temp 105.1 F H 03/02/22 13:00 Pulse 105 H 03/02/22 13:00 Resp 28 H 03/02/22 13:00 BP 133/52 L 03/02/22 13:00 Pulse Ox 94 03/02/22 13:00 BMI result Body Mass Index 32.7 Alert an oriented and nonfocal neurologically Bedside echo demonstrates class 1 LV function Chest essentially is clear no adventitious sounds no respiratory effort Abdomen soft nontender good bowel sounds no organomegaly Objective Data Labs CBC & Chem 7: 03/02/22 05:20 03/02/22 05:20 Labs: Laboratory Results - last 24 hr 03/01/22 03/01/22 03/01/22 21:36 21:36 21:36 WBC 15.5 H RBC 3.71 L Hgb 11.1 L Hct 34.2 L MCV 92.2 MCH 29.9 MCHC 32.5 RDW 16.1 H Plt Count 184 D MPV 9.4 Immature Gran % (Auto) 0.5 H Neut % (Auto) 85.8 H Lymph % (Auto) 5.9 L [place] % (Auto) 7.3 Eos % (Auto) 0.3 Baso % (Auto) 0.2 Lymph # (Auto) 0.9 L [place] # (Auto) 1.1 Eos # (Auto) 0.1 Baso # (Auto) 0.0 Abs Immat Gran (auto) 0.07 H Absolute Neuts (auto) 13.3 H Absolute Nucleated RBC 0.000 Nucleated RBC % (auto) 0.0 PT INR APTT Sodium 136 Potassium 4.4 Chloride 98 Carbon Dioxide 28 Anion Gap 14 BUN 31 H Creatinine 2.31 H Estim Creat Clear Calc 28.5 Estimated GFR 27 Random Glucose 123 H D Lactic Acid 1.4 Calcium 9.2 Phosphorus Magnesium Total Bilirubin 0.9 Direct Bilirubin AST 14 D ALT 8 Alkaline Phosphatase 44 Troponin I High Sens B-Natriuretic Peptide Total Protein 6.4 L Albumin 3.8 Lipase 18 Urine Color Urine Appearance Urine pH Ur Specific [place] Urine Protein Urine Glucose (UA) Urine Ketones Urine Blood Urine Nitrite Ur Leukocyte Esterase Urine RBC Urine WBC Ur Squamous Epith Cells Urine Bacteria COVID-19 ([facility]AU) COVID-19 Clin Com Influenza Type A (GERARDO) Influenza Type B (GERARDO) Influenza A & B Note 03/01/22 03/01/22 03/01/22 21:36 21:36 21:36 WBC RBC Hgb Hct MCV MCH MCHC RDW Plt Count MPV Immature Gran % (Auto) Neut % (Auto) Lymph % (Auto) [place] % (Auto) Eos % (Auto) Baso % (Auto) Lymph # (Auto) [place] # (Auto) Eos # (Auto) Baso # (Auto) Abs Immat Gran (auto) Absolute Neuts (auto) Absolute Nucleated RBC Nucleated RBC % (auto) PT 31.2 H INR 2.7 H APTT 52.6 H Sodium Potassium Chloride Carbon Dioxide Anion Gap BUN Creatinine Estim Creat Clear Calc Estimated GFR Random Glucose Lactic Acid Calcium Phosphorus Magnesium Total Bilirubin Direct Bilirubin AST ALT Alkaline Phosphatase Troponin I High Sens 29.3 B-Natriuretic Peptide Total Protein Albumin Lipase Urine Color Urine Appearance Urine pH Ur Specific [place] Urine Protein Urine Glucose (UA) Urine Ketones Urine Blood Urine Nitrite Ur Leukocyte Esterase Urine RBC Urine WBC Ur Squamous Epith Cells Urine Bacteria COVID-19 ([facility]AU) Negative COVID-19 Clin Com See Note Influenza Type A (GERARDO) Influenza Type B (GERARDO) Influenza A & B Note 03/01/22 03/01/22 03/02/22 21:52 21:58 05:15 WBC RBC Hgb Hct MCV MCH MCHC RDW Plt Count MPV Immature Gran % (Auto) Neut % (Auto) Lymph % (Auto) [place] % (Auto) Eos % (Auto) Baso % (Auto) Lymph # (Auto) [place] # (Auto) Eos # (Auto) Baso # (Auto) Abs Immat Gran (auto) Absolute Neuts (auto) Absolute Nucleated RBC Nucleated RBC % (auto) PT INR APTT Sodium Potassium Chloride Carbon Dioxide Anion Gap BUN Creatinine Estim Creat Clear Calc Estimated GFR Random Glucose Lactic Acid Calcium Phosphorus Magnesium Total Bilirubin Direct Bilirubin AST ALT Alkaline Phosphatase Troponin I High Sens B-Natriuretic Peptide 888 H Total Protein Albumin Lipase Urine Color DK YELLOW Urine Appearance CLOUDY Urine pH 6.0 Ur Specific [place] 1.020 Urine Protein 2+ H Urine Glucose (UA) NEG Urine Ketones NEG Urine Blood 3+ H Urine Nitrite NEG Ur Leukocyte Esterase 3+ H Urine RBC 1-4 Urine WBC TNTC H Ur Squamous Epith Cells NONE Urine Bacteria 3+ COVID-19 ([facility]AU) COVID-19 Clin Com Influenza Type A (GERARDO) Negative Influenza Type B (GERARDO) Negative Influenza A & B Note See Note 03/02/22 03/02/22 03/02/22 05:20 05:20 05:20 WBC 16.5 H RBC 3.51 L Hgb 10.6 L Hct 32.9 L MCV 93.7 MCH 30.2 MCHC 32.2 RDW 16.3 H Plt Count 188 MPV 10.0 Immature Gran % (Auto) 0.7 H Neut % (Auto) 89.7 H Lymph % (Auto) 2.7 L [place] % (Auto) 6.6 Eos % (Auto) 0.1 Baso % (Auto) 0.2 Lymph # (Auto) 0.5 L [place] # (Auto) 1.1 Eos # (Auto) 0.0 Baso # (Auto) 0.0 Abs Immat Gran (auto) 0.11 H Absolute Neuts (auto) 14.8 H Absolute Nucleated RBC 0.000 Nucleated RBC % (auto) 0.0 PT INR APTT Sodium 136 Potassium 3.7 Chloride 101 Carbon Dioxide 25 Anion Gap 14 BUN 28 H Creatinine 1.89 H Estim Creat Clear Calc 34.9 Estimated GFR 34 Random Glucose 119 H Lactic Acid Calcium 8.4 D Phosphorus 2.1 L Magnesium 1.5 L Total Bilirubin 1.0 Direct Bilirubin 0.6 H AST 15 ALT 7 Alkaline Phosphatase 42 Troponin I High Sens B-Natriuretic Peptide Total Protein 5.8 L Albumin 3.4 L Lipase Urine Color Urine Appearance Urine pH Ur Specific [place] Urine Protein Urine Glucose (UA) Urine Ketones Urine Blood Urine Nitrite Ur Leukocyte Esterase Urine RBC Urine WBC Ur Squamous Epith Cells Urine Bacteria COVID-19 (ESAU) COVID-19 Clin Com Influenza Type A (GERARDO) Influenza Type B (GERARDO) Influenza A & B Note Microbiology Microbiology Results: Microbiology 03/01/22 21:36 Blood - Venous Blood Culture - Preliminary Prelim: GNR Gram Stain only 03/01/22 21:58 Urine Catheterized - Robertson Catheter Urine Culture - Preliminary Gram negative yvette 03/01/22 21:36 Blood - Venous Blood Culture - Preliminary Prelim: GNR Gram Stain only Progress Note: A&P Assessment and plan (1) Sepsis secondary to UTI: Status: Acute (2) Pneumonitis: Status: Acute (3) Acute kidney injury: Status: Acute (4) Paroxysmal atrial fibrillation: Status: Acute (5) Presence of permanent cardiac pacemaker: Status: Acute Plan Patient doing well and will continue with the Levaquin wean the Levophed as as blood pressure permits and actually the awaken comfortable enough to initiate diet Quality Stroke Does the patient have a stroke diagnosis?: No VTE Prior VTE?: No VTE Risk Level:: Medical - low VTE Device Contraindication: N/A - Device Ordered VTE Drug Contraindication: N/A - Med Ordered
--- NOTE | 2022-03-02 14:11 | PC.NURSE ---
PT has been running a temperature since AM, made; suggested continuing giving Tylenol. Pt given tylenol at 0753. At 100, Placed 6 ice packs around pt; however that didn't significantly lowered pt temps. Pt was educated on a cooling blanket however he refused ; after reeducating him he then agreed to have it. Pt was also given a second dose of tylenol.
[2022-03-02] MEDS: LORazepam 2 MG/ML VIAL 0.25 MG IVPUSH (19:24)
[2022-03-02 20:32] LABS: COVID-19 Test Negative (Negative); IDNOW Serial# 16C4AD1C
[2022-03-03] VITALS (26 sets, daily range): BP systolic 79–146; BP diastolic 36–78; PULSE 63–119; RESP 11–33; TEMP 37.3–39.5; O2SAT 93–100
[2022-03-03] MEDS: fentaNYL citrate/PF 100 MCG/2 ML VIAL 25 MCG IVPUSH (02:20)
[2022-03-03 05:57] LABS: MANUAL DIFF FLAG NO
[2022-03-03 06:02] LABS: Basophils Percent Auto 0.3 % (0-2); Hematocrit 31.4 % (42.0-52.0); Hemoglobin 10.3 g/dl (14.0-18.0); Imm Gran Abs Auto 0.06 X10*3/uL (0.00-0.03); Imm Gran Pct Auto 0.6 % (0.0-0.4); Lymphocytes Absolute Auto 0.4 X10*3/uL (1.2-4.9); Lymphocytes Percent Auto 3.6 % (20-40); Mean Corpuscular HGB Conc 32.8 g/dl (31.0-36.0); Mean Corpuscular Hemoglobin 30.1 pg (27.0-33.0); Mean Corpuscular Volume 91.8 fL (80.0-98.0); Mean Platelet Volume 10.1 fL (9.4-12.4); Monocytes Absolute Auto 0.7 X10*3/uL (0.1-1.2); Monocytes Percent Auto 6.5 % (2-11); Neutrophils Absolute Auto 9.5 x10*3/uL (2.0-8.3); Platelet Count 179 X10*3/uL (160-400); Red Blood Count 3.42 X10*6/uL (4.60-5.80); Red Cell Distribution Width 16.2 % (11.0-16.0); White Blood Count 10.6 X10*3/uL (4.8-10.8)
[2022-03-03 06:24] LABS: B Type Natriuretic Peptide 923 pg/mL (<100)
[2022-03-03 06:29] LABS: Alanine Aminotransferase 11 U/L (0-40); Albumin Level 3.2 g/dL (3.5-5.0); Alkaline Phosphatase 39 U/L (39-117); Anion Gap 13 (12-20); Aspartate Amino Transferase 32 U/L (5-37); Bilirubin Direct 0.4 mg/dL (0.0-0.5); Bilirubin Total 0.5 mg/dL (0.0-1.0); Blood Urea Nitrogen 25 mg/dL (9-16); Calcium 8.5 mg/dL (8.4-10.2); Carbon Dioxide 24 mmol/L (22-29); Chloride 103 mmol/L (96-108); Creatinine Clr Calc Pharmacy 44.7; Estimated Glomerular Filt Rate 45; Glucose Random 125 mg/dL (60-115); Magnesium 1.8 mg/dL (1.6-2.6); Phosphorus 2.1 mg/dL (2.7-4.5); Potassium 3.8 mmol/L (3.3-5.1); Sodium 136 mmol/L (135-145); Total Protein 5.5 g/dL (6.5-8.0)
[2022-03-03] MEDS: cefTRIAXone sodium 1 GM in 0.9 % Sodium Chloride 50 ML IV (10:26)
--- NOTE | 2022-03-03 11:43 | PM.CCPN ---
Subjective Subjective Date of Service: 03/03/22 Interval History: 86-year-old gentleman with underlying history of AFib status post PPM, CHF, COPD, DVT on anticoagulation, admitted on 03/02/2022 with septic shock secondary to E coli bacteremia with source requiring vasopressor support. No events overnight. Continues to be titrated off vasopressor support. Critical Care Time (minutes): 45 Physical Exam Vital Signs: Vital Signs: Last Vital Signs Temp 101.6 F H 03/03/22 11:00 Pulse 103 H 03/03/22 11:00 Resp 15 03/03/22 11:00 BP 117/66 03/03/22 11:00 Pulse Ox 98 03/03/22 11:00 BMI result Body Mass Index 32.7 Const: General: no acute distress and lethargic ( [place], answers appropriately) Orientation/consciousness: lethargic ( [place], answers appropriately) Eyes: Sclerae: sclerae normal EOM: EOMs intact bilaterally Neck: Neck: Yes no lymphadenopathy, Yes trachea midline and Yes supple Resp: Effort & Inspection: normal respiratory effort and no respiratory distress Auscultation: clear to auscultation bilaterally Cardio: Rate: regular rate Rhythm: regular rhythm Heart sounds: no gallops, no murmurs and no rubs GI: Palpation (GI): Soft to palpation and Other GI palpation findings present ( Nontender) Auscultation: normal bowel sounds Extrem: General: No clubbing, No cyanosis and Yes edema ( 1+ bilateral) Objective Data Labs CBC & Chem 7: 03/03/22 05:25 03/03/22 05:25 Labs: Laboratory Results - last 24 hr 03/02/22 03/02/22 03/03/22 20:05 20:05 05:25 WBC RBC Hgb Hct MCV MCH MCHC RDW Plt Count MPV Immature Gran % (Auto) Neut % (Auto) Lymph % (Auto) [place] % (Auto) Eos % (Auto) Baso % (Auto) Lymph # (Auto) [place] # (Auto) Eos # (Auto) Baso # (Auto) Abs Immat Gran (auto) Absolute Neuts (auto) Absolute Nucleated RBC Nucleated RBC % (auto) Sodium Potassium Chloride Carbon Dioxide Anion Gap BUN Creatinine Estim Creat Clear Calc Estimated GFR Random Glucose Calcium Phosphorus Magnesium Total Bilirubin Direct Bilirubin AST ALT Alkaline Phosphatase B-Natriuretic Peptide 923 H Total Protein Albumin SARS-CoV-2 (PCR) Cancelled COVID-19 (ESAU) Negative COVID-19 Clin Com See Note 03/03/22 03/03/22 05:25 05:25 WBC 10.6 RBC 3.42 L Hgb 10.3 L Hct 31.4 L MCV 91.8 MCH 30.1 MCHC 32.8 RDW 16.2 H Plt Count 179 MPV 10.1 Immature Gran % (Auto) 0.6 H Neut % (Auto) 89.0 H Lymph % (Auto) 3.6 L [place] % (Auto) 6.5 Eos % (Auto) 0.0 Baso % (Auto) 0.3 Lymph # (Auto) 0.4 L [place] # (Auto) 0.7 Eos # (Auto) 0.0 Baso # (Auto) 0.0 Abs Immat Gran (auto) 0.06 H Absolute Neuts (auto) 9.5 H Absolute Nucleated RBC 0.000 Nucleated RBC % (auto) 0.0 Sodium 136 Potassium 3.8 Chloride 103 Carbon Dioxide 24 Anion Gap 13 BUN 25 H Creatinine 1.48 H Estim Creat Clear Calc 44.7 Estimated GFR 45 Random Glucose 125 H Calcium 8.5 Phosphorus 2.1 L Magnesium 1.8 Total Bilirubin 0.5 Direct Bilirubin 0.4 AST 32 D ALT 11 Alkaline Phosphatase 39 B-Natriuretic Peptide Total Protein 5.5 L Albumin 3.2 L SARS-CoV-2 (PCR) COVID-19 (ESAU) COVID-19 Clin Com Microbiology Microbiology Results: Microbiology 03/01/22 21:36 Blood - Venous Blood Culture - Preliminary Gram negative yvette 03/01/22 21:36 Blood - Venous Blood Culture - Preliminary Gram negative yvette 03/01/22 21:58 Urine Catheterized - Robertson Catheter Urine Culture - Final Escherichia coli Progress Note: A&P Assessment and plan (1) Sepsis secondary to UTI: Status: Acute (2) Acute kidney injury: Status: Acute (3) Paroxysmal atrial fibrillation: Status: Acute (4) DVT (deep venous thrombosis): Status: Acute (5) COPD (chronic obstructive pulmonary disease): Status: Acute (6) CHF (congestive heart failure): Status: Acute Plan Assessment: 86-year-old gentleman with underlying AFib, diastolic heart failure, COPD, DVTs admitted with septic shock secondary to E coli bacteremia with source Plan: Neuro: No acute issues. Cardiac: septic shock, improving, continue to titrate off pressors. Underlying history of diastolic heart failure and AFib. Continues on anticoagulation. Pulmonary: No acute issues. Renal: Acute renal failure, improving. Continue to monitor renal indices and urine output. Endo: No acute issues. GI: No acute issues. ID: E coli bacteremia with source, ceftriaxone susceptible, switched to ceftriaxone. Heme/Onc: No acute issues. Psych: No acute issues. Miscellaneous: No acute issues. Prophylaxis: Xarelto Diet: regular Critical care time spent: 45 minutes Quality Stroke Does the patient have a stroke diagnosis?: No VTE Prior VTE?: No VTE Risk Level:: Medical - low VTE Device Contraindication: N/A - Device Ordered VTE Drug Contraindication: N/A - Med Ordered
--- NOTE | 2022-03-03 14:42 | MHC.CM.PN ---
CASE MANAGEMENT FOLLOWING FOR PATIENT'S RETURN TO [facility] UPDATES SENT VIA [facility].
[2022-03-03] MEDS: Acetaminophen 325 MG TABLET 975 MG PO (15:46)
[2022-03-03] MEDS: Gabapentin 300 MG CAPSULE PO (16:21)
[2022-03-03] MEDS: Rivaroxaban 20 MG TABLET PO (18:15)
[2022-03-04] VITALS (16 sets, daily range): BP systolic 98–140; BP diastolic 40–64; PULSE 60–101; RESP 13–30; TEMP 36.3–38.1; O2SAT 91–97
[2022-03-04 05:32] LABS: VBG Base Excess 1.9 mmol/L; VBG HCO3 24 mmol/L (22-26); VBG pCO2 31 mmHg; VBG pH 7.49 (7.32-7.43); VBG pO2 46 mmHg
[2022-03-04 05:44] LABS: Venous Blood Gas Refer to POC result
[2022-03-04 05:56] LABS: MANUAL DIFF FLAG NO
[2022-03-04 06:02] LABS: Eosinophils Absolute Auto 0.1 X10*3/uL (0.0-0.4); Eosinophils Percent Auto 0.9 % (0-4); Hematocrit 30.4 % (42.0-52.0); Hemoglobin 9.7 g/dl (14.0-18.0); Imm Gran Abs Auto 0.02 X10*3/uL (0.00-0.03); Imm Gran Pct Auto 0.3 % (0.0-0.4); Lymphocytes Absolute Auto 0.5 X10*3/uL (1.2-4.9); Lymphocytes Percent Auto 7.6 % (20-40); Mean Corpuscular HGB Conc 31.9 g/dl (31.0-36.0); Mean Corpuscular Hemoglobin 29.2 pg (27.0-33.0); Mean Corpuscular Volume 91.6 fL (80.0-98.0); Mean Platelet Volume 10.2 fL (9.4-12.4); Monocytes Absolute Auto 0.7 X10*3/uL (0.1-1.2); Monocytes Percent Auto 10.9 % (2-11); Neutrophils Absolute Auto 5.2 x10*3/uL (2.0-8.3); Neutrophils Percent Auto 80.3 % (45-73); Platelet Count 173 X10*3/uL (160-400); Red Blood Count 3.32 X10*6/uL (4.60-5.80); White Blood Count 6.5 X10*3/uL (4.8-10.8)
[2022-03-04 06:25] LABS: Alanine Aminotransferase 16 U/L (0-40); Albumin Level 3.1 g/dL (3.5-5.0); Alkaline Phosphatase 36 U/L (39-117); Anion Gap 13 (12-20); Aspartate Amino Transferase 39 U/L (5-37); Bilirubin Total 0.6 mg/dL (0.0-1.0); Blood Urea Nitrogen 26 mg/dL (9-16); Calcium 8.7 mg/dL (8.4-10.2); Carbon Dioxide 24 mmol/L (22-29); Chloride 104 mmol/L (96-108); Creatinine Clr Calc Pharmacy 61.3; Estimated Glomerular Filt Rate > 60; Glucose Random 113 mg/dL (60-115); Magnesium 1.8 mg/dL (1.6-2.6); Phosphorus 2.2 mg/dL (2.7-4.5); Potassium 3.7 mmol/L (3.3-5.1); Sodium 137 mmol/L (135-145); Total Protein 5.4 g/dL (6.5-8.0)
--- NOTE | 2022-03-04 06:50 | PC.NURSE ---
Shift eval - 6p-7a. Patient alert and oriented, forgetful, cooperative. T-max 100.6, still on cooling blanket attempting to bring temp down to 97.7. Vpaced, Map >65. Repos Q2H. Patient denies pain. high fall risk precaution maintined.
[2022-03-04] MEDS: Potassium Phosphate/NS 15 MMOL/250 ML PLAST..BAG 62.5 MMOL IV (08:52)
[2022-03-04] MEDS: cefTRIAXone sodium 1 GM in 0.9 % Sodium Chloride 50 ML IV (08:53)
[2022-03-04] MEDS: Gabapentin 300 MG CAPSULE PO (08:53)
--- NOTE | 2022-03-04 09:06 | PM.CCPN ---
Subjective Subjective Date of Service: 03/04/22 Interval History: 86-year-old gentleman with underlying history of AFib status post PPM, CHF, COPD, DVT on anticoagulation, admitted on 03/02/2022 with septic shock secondary to E coli bacteremia with source requiring vasopressor support. No events overnight. Titrated off vasopressor support. Critical Care Time (minutes): 0 Physical Exam Vital Signs: Vital Signs: Last Vital Signs Temp 100 F 03/04/22 05:58 Pulse 68 03/04/22 08:00 Resp 21 H 03/04/22 08:00 BP 111/62 03/04/22 08:00 Pulse Ox 96 03/04/22 08:00 BMI result Body Mass Index 32.7 Const: General: no acute distress, alert and awake Eyes: Sclerae: sclerae normal EOM: EOMs intact bilaterally Neck: Neck: Yes no lymphadenopathy, Yes trachea midline and Yes supple Resp: Effort & Inspection: normal respiratory effort and no respiratory distress Auscultation: clear to auscultation bilaterally Cardio: Rate: regular rate Rhythm: regular rhythm Heart sounds: no gallops, no murmurs and no rubs GI: Palpation (GI): Soft to palpation and Other GI palpation findings present ( Nontender) Auscultation: normal bowel sounds Extrem: General: Yes no pedal edema, No clubbing and No cyanosis Objective Data Labs CBC & Chem 7: 03/04/22 05:25 03/04/22 05:25 Labs: Laboratory Results - last 24 hr 03/04/22 03/04/22 03/04/22 05:24 05:25 05:25 WBC 6.5 RBC 3.32 L Hgb 9.7 L Hct 30.4 L MCV 91.6 MCH 29.2 MCHC 31.9 RDW 16.0 Plt Count 173 MPV 10.2 Immature Gran % (Auto) 0.3 Neut % (Auto) 80.3 H Lymph % (Auto) 7.6 L [place] % (Auto) 10.9 Eos % (Auto) 0.9 Baso % (Auto) 0.0 Lymph # (Auto) 0.5 L [place] # (Auto) 0.7 Eos # (Auto) 0.1 Baso # (Auto) 0.0 Abs Immat Gran (auto) 0.02 Absolute Neuts (auto) 5.2 Absolute Nucleated RBC 0.000 Nucleated RBC % (auto) 0.0 VBG pH 7.49 H VBG pCO2 31 VBG pO2 46 VBG HCO3 24 VBG O2 Saturation 78.0 VBG Base Excess 1.9 Sodium 137 Potassium 3.7 Chloride 104 Carbon Dioxide 24 Anion Gap 13 BUN 26 H Creatinine 1.08 Estim Creat Clear Calc 61.3 Estimated GFR > 60 Random Glucose 113 Calcium 8.7 Phosphorus 2.2 L Magnesium 1.8 Total Bilirubin 0.6 AST 39 H ALT 16 Alkaline Phosphatase 36 L Total Protein 5.4 L Albumin 3.1 L Microbiology Microbiology Results: Microbiology 03/01/22 21:36 Blood - Venous Blood Culture - Final Escherichia coli 03/01/22 21:36 Blood - Venous Blood Culture - Final Escherichia coli 03/01/22 21:58 Urine Catheterized - Robertson Catheter Urine Culture - Final Escherichia coli Progress Note: A&P Assessment and plan (1) Sepsis secondary to UTI: Status: Acute (2) Acute kidney injury: Status: Acute (3) CHF (congestive heart failure): Status: Acute (4) COPD (chronic obstructive pulmonary disease): Status: Acute (5) DVT (deep venous thrombosis): Status: Acute (6) Atrial fibrillation: Status: Acute Plan Assessment: 86-year-old gentleman with underlying AFib, diastolic heart failure, COPD, DVTs admitted with septic shock secondary to E coli bacteremia with source Plan: Neuro: No acute issues. Cardiac: Septic shock, resolved,titrated off pressors. Underlying history of diastolic heart failure and AFib. Continues on anticoagulation. Pulmonary: No acute issues. Renal: Acute renal failure, improving. Continue to monitor renal indices and urine output. Endo: No acute issues. GI: No acute issues. ID: E coli bacteremia with source, ceftriaxone susceptible, continue on ceftriaxone. Heme/Onc: No acute issues. Psych: No acute issues. Miscellaneous: No acute issues. Prophylaxis: Xarelto Diet: regular Quality Stroke Does the patient have a stroke diagnosis?: No VTE Prior VTE?: No VTE Risk Level:: Medical - low VTE Device Contraindication: N/A - Device Ordered VTE Drug Contraindication: N/A - Med Ordered
--- NOTE | 2022-03-04 13:39 | PM.EVENT ---
Event Note Date of Service: 03/04/22 Event Note: 86-year-old gentleman with underlying history of AFib status post PPM, CHF, COPD, DVT on anticoagulation, admitted on 03/02/2022 with septic shock secondary to E coli bacteremia with source requiring vasopressor support. tx from ICU Septic shock secondary to Ecoli bacteremia placed on pressors in ICU, titrated down Treated with Rocephin GIN . Resolved secondary to hypoperfusion from hypotension Afib xarelto HFpEF last echo 06/2021 on lasix Normocytic anemia no bleeding check iron studies stool occult HTN Hold antihypertensives for now in light of hypotension Mental health continue home medications asthma continue home medications no exacerbation
[2022-03-04] MEDS: Rivaroxaban 20 MG TABLET PO (18:04)
[2022-03-04] MEDS: traZODone HCL 50 MG TABLET 150 MG PO (22:43)
[2022-03-05 04:00] VITALS: BP 108/58; PULSE 60; RESP 17; TEMP 36.8; O2SAT 95
[2022-03-05 06:52] LABS: MANUAL DIFF FLAG NO
[2022-03-05 06:59] LABS: Basophils Percent Auto 0.2 % (0-2); Eosinophils Absolute Auto 0.1 X10*3/uL (0.0-0.4); Eosinophils Percent Auto 2.4 % (0-4); Hematocrit 31.5 % (42.0-52.0); Hemoglobin 10.2 g/dl (14.0-18.0); Imm Gran Abs Auto 0.05 X10*3/uL (0.00-0.03); Imm Gran Pct Auto 0.9 % (0.0-0.4); Lymphocytes Absolute Auto 0.7 X10*3/uL (1.2-4.9); Lymphocytes Percent Auto 12.9 % (20-40); Mean Corpuscular HGB Conc 32.4 g/dl (31.0-36.0); Mean Corpuscular Hemoglobin 29.7 pg (27.0-33.0); Mean Corpuscular Volume 91.6 fL (80.0-98.0); Mean Platelet Volume 10.3 fL (9.4-12.4); Monocytes Absolute Auto 0.6 X10*3/uL (0.1-1.2); Monocytes Percent Auto 11.1 % (2-11); Neutrophils Absolute Auto 3.9 x10*3/uL (2.0-8.3); Neutrophils Percent Auto 72.5 % (45-73); Platelet Count 175 X10*3/uL (160-400); Red Blood Count 3.44 X10*6/uL (4.60-5.80); Red Cell Distribution Width 16.1 % (11.0-16.0); White Blood Count 5.4 X10*3/uL (4.8-10.8)
[2022-03-05 07:17] LABS: Anion Gap 12 (12-20); Blood Urea Nitrogen 26 mg/dL (9-16); Calcium 8.9 mg/dL (8.4-10.2); Carbon Dioxide 24 mmol/L (22-29); Chloride 108 mmol/L (96-108); Creatinine Clr Calc Pharmacy 69.7; Estimated Glomerular Filt Rate > 60; Glucose Random 91 mg/dL (60-115); Potassium 3.8 mmol/L (3.3-5.1); Sodium 140 mmol/L (135-145)
[2022-03-05 07:19] LABS: Anion Gap 13 (12-20); Blood Urea Nitrogen 26 mg/dL (9-16); Calcium 8.9 mg/dL (8.4-10.2); Carbon Dioxide 24 mmol/L (22-29); Chloride 108 mmol/L (96-108); Creatinine Clr Calc Pharmacy 67.5; Estimated Glomerular Filt Rate > 60; Glucose Random 91 mg/dL (60-115); Iron 34 mcg/dL (45-160); Percent Iron Saturation 15 % (15-50); Potassium 3.8 mmol/L (3.3-5.1); Sodium 141 mmol/L (135-145); Total Iron Binding Capacity 220 mcg/dL (228-428); Unsaturated Iron Binding 186 ug/dL
[2022-03-05] MEDS: Gabapentin 300 MG CAPSULE PO (10:12)
[2022-03-05] MEDS: cefTRIAXone sodium 1 GM in 0.9 % Sodium Chloride 50 ML IV (10:12)
[2022-03-05 11:13] VITALS: BP 104/55; PULSE 64; RESP 18; TEMP 36.6; O2SAT 99
--- NOTE | 2022-03-05 11:18 | MHC.CM.PN ---
pt to be dcd today at 2 back to [facility]
--- NOTE | 2022-03-05 13:04 | P.DS_ITS ---
DS: Providers Provider Date of Service: 03/05/22 Date of admission: 03/02/22 00:40 Primary care physician: Unknown Physician DS: Diagnosis Discharge Diagnosis (1) Sepsis secondary to UTI: Status: Acute (2) Acute kidney injury: Status: Acute (3) Septic shock: Status: Acute DS: Summary Hospital Course Hospital Course: HPI from admission H&P: shaggy is an 86-year-old male with a past medical history of diastolic congestive heart failure on Lasix, ppm, BPH, afib and dvt on Xaralto, hypomag, gout coming from? [facility] [place] complaining of a few days of chills.? Patient states that the WEIGHER AND GRADER at [facility] [place] had been remarking for the last few days about how cloudy his urine loocked.? He also states he has had lower abdominal pain and chills but when they took his temperature with a forehead probe, it showed no fever.? He denies any blood in his urine, chest pain, shortness of breath or leg pain. ? Patient states he has been on antibiotics recently as a prophylaxis to having some teeth removed but he states he finishd those antibiotics approximately 3 weeks ago, prior to these symptoms starting. ? He states he had his dental procedure on his lower teeth 3 weeks ago, he denies pain or tenderness in the area. Vital signs upon arrival were notable for initially being hypertensive with a systolic in the low 200's, checked manually, but then rapidly his blood pressure dropped to the low 80s.? Labetalol was ordered but it was not given per Dr. Coe. Labs were remarkable for a white count of 15.5,? PTT 31.2, INR 2.7,? BUN 31, creatinine 2.31, this is above the patient's baseline of 1.00,? urine was remarkable for 2+ protein, 3+ blood, 3+ leukocyte esterase and TNTC white blood cells in the urine. ? Lactic acid was 1.4. BC pending. Pt rec'd 3L NS in the ED. I will place a TLC so the patient can get Levophed to support his blood pressure, I spoke with Dr. Monsivais, patient will be admitted to the ICU for urosepsis Hospital Course: Patient was initially admitted to ICU for septic shock and was treated with IV antibiotics and vasopressor support. He was weaned from pressors. His antibitoics were changed to Rocephin (which he tolerated) when cultures (both blood and urine) showed E. Coli sensitive to cephalosporins. His renal function normalized as did his BP. He will be discharged on 11 more days (total 14 days of antibiotics) of Ceftin 500mg BID. His anithypertensives should be held and resumed once BP remains in the normal ranage. Time Spent with Patient Time attestation: Total time spent providing and/or coordinating discharge services: Discharge coordination time: Greater than 30 minutes Quality: Safe Use of Opioids Does Pt have an Active Cancer Diagnosis on the Problem List?: No Quality: Stroke Does the patient have a stroke diagnosis?: No Physical Exam Vital Signs: Vital Signs: Last Vital Signs Temp 97.9 F 03/05/22 11:13 Pulse 64 03/05/22 11:13 Resp 18 03/05/22 11:13 BP 104/55 L 03/05/22 11:13 Pulse Ox 99 03/05/22 11:13 BMI result Body Mass Index 32.7 Const: Other: General - no acute distress, appears comfortable Cardiovascular - regular rate and rhythm, S1-S2 Lungs - normal respiratory effort, clear to auscultation bilaterally, no wheezing Abdomen - soft, nontender, no rebound or guarding Extremities - no edema bilaterally Neuro - awake and alert, no focal deficits DS: Data Data Completed and Pending Labs on day of discharge: Laboratory Results - last 24 hr 03/05/22 03/05/22 03/05/22 06:41 06:41 06:41 WBC 5.4 RBC 3.44 L Hgb 10.2 L Hct 31.5 L MCV 91.6 MCH 29.7 MCHC 32.4 RDW 16.1 H Plt Count 175 MPV 10.3 Immature Gran % (Auto) 0.9 H Neut % (Auto) 72.5 Lymph % (Auto) 12.9 L [place] % (Auto) 11.1 H Eos % (Auto) 2.4 Baso % (Auto) 0.2 Lymph # (Auto) 0.7 L [place] # (Auto) 0.6 Eos # (Auto) 0.1 Baso # (Auto) 0.0 Abs Immat Gran (auto) 0.05 H Absolute Neuts (auto) 3.9 Absolute Nucleated RBC 0.000 Nucleated RBC % (auto) 0.0 Sodium 141 140 Potassium 3.8 3.8 Chloride 108 108 Carbon Dioxide 24 24 Anion Gap 13 12 BUN 26 H 26 H Creatinine 0.98 0.95 Estim Creat Clear Calc 67.5 69.7 Estimated GFR > 60 > 60 Random Glucose 91 91 Calcium 8.9 8.9 Phosphorus 3.0 Magnesium 2.0 Iron 34 L TIBC 220 L % Saturation 15 Unsat Iron Binding 186 Discharge Plan Discharge Patient Disposition: Xfer SNF Discharge Diagnosis: Septic Shock UTI Referrals: [facility] [Outside] - 1 Week Physician,Deisy J [Primary Care Provider] - 1 Week Discharge Medications: New cefuroxime axetil 500 mg tablet 500 mg PO Q12H Qty: 22 0RF Continued tamsulosin 0.4 mg capsule 1 cap PO DAILY@1700 0RF gabapentin 300 mg capsule 1 cap PO TID 0RF allopurinol 300 mg tablet 1 tab PO DAILY 0RF escitalopram oxalate 20 mg tablet 1 tab PO DAILY 0RF fenofibrate 160 mg tablet 1 tab PO DAILY 0RF Xarelto 20 mg tablet 1 tab PO DAILY@1700 0RF Breo Ellipta 100-25 mcg/dose blister with device 1 puff inhalation DAILY 0RF magnesium oxide 400 mg (241.3 mg magnesium) Tablet 400 mg PO BIDPC Qty: 60 0RF trazodone 150 mg tablet 1 tab PO BEDTIME 0RF bisacodyl [Dulcolax (bisacodyl)] 10 mg Suppository 10 mg MN Q24H PRN (Reason: Constipation) 0RF Cepacol Sore Throat (imer-men) 15-2.6 mg Lozenge 1 rebecca MUCOUS MEMBRANE Q2H PRN (Reason: Sore Throat) 0RF acetaminophen 325 mg Tablet 975 mg PO TID 0RF tramadol 50 mg Tablet 50 mg PO Q12H PRN (Reason: Pain (Scale Score 7-10)) 0RF lorazepam 0.5 mg Tablet 0.5 mg PO DAILY 0RF magnesium hydroxide [Milk of Magnesia] 400 mg/5 mL Suspension 30 ml PO Q24H PRN (Reason: Constipation) 0RF pantoprazole [Protonix] 40 mg Tablet,Delayed Release (Dr/Ec) 40 mg PO BID@0630,1630 0RF Held furosemide 20 mg tablet 3 tab PO DAILY 0RF Hold Instructions: Resume on 03/12/22. valsartan 40 mg tablet 1 tab PO DAILY 0RF Hold Instructions: Resume on 03/12/22. isosorbide mononitrate 30 mg Tablet Extended Release 24 Hr 30 mg PO DAILY 0RF Hold Instructions: Resume on 03/12/22. Discharge Orders: Discharge Order (Routine); Ordered 03/05/22 Ordered By: Lg Delgado Diet: advance to usual diet Activity on Discharge: As tolerated Stand Alone Forms: Patient Portal Discharge page Care Plan Goals: To stay healthy and out of the hospital. Health Concerns: UTI Septic Shock Plan of Treatment: Take Ceftin 500mg twice daily for 11 more days Assessment: see discharge summary
--- NOTE | 2022-03-05 13:17 | MHC.CM.PN ---
t/m left for [facility] pts dc today at 3
[2022-03-05 13:49] LABS: COVID-19 Test Negative (Negative)
== END 2022-03-05 15:29 | disposition skilled nursing facility (03) | DRG 871 ==
LOC: HO.ED 23:42 → HO.EDOVER 03-02 00:58 → HO.ICU 03-02 01:57 → HO.IMC 03-04 11:52
PROVIDERS: Internal Medicine Pulmonary Disease; Nurse Practitioner Acute Care; Admitting Provider Physician Assistant; Emergency Provider Emergency Medicine; Visit Provider Family Medicine
DX: A41.51 Sepsis due to Escherichia coli [E. coli] (principal); R65.21 Severe sepsis with septic shock; J18.9 Pneumonia, unspecified organism; N39.0 Urinary tract infection, site not specified; N17.9 Acute kidney failure, unspecified; I48.0 Paroxysmal atrial fibrillation; D64.9 Anemia, unspecified; Z20.822 Contact with and (suspected) exposure to COVID-19; Z86.718 Personal history of other venous thrombosis and embolism; Z95.0 Presence of cardiac pacemaker; Z88.0 Allergy status to penicillin; Z88.2 Allergy status to sulfonamides; Z88.8 Allergy status to other drugs, medicaments and biological substances; Z79.01 Long term (current) use of anticoagulants; Z79.899 Other long term (current) drug therapy
CPT/HCPCS: 36415; 71045; 74176; 80048; 80053; 81001; 82248; 82803; 83540; 83605; 83690; 83735; 83880; 84100; 84484; 85025; 85610; 85730; 87040; 87077; 87086; 87088; 87186; 87205; 87502; 87635; 93005; 96361; 96374; 99285; 99291; 99292; C1758; J0131; J0696; J1956; J2060; J2185; J3010

== ENCOUNTER 2022-03-06 05:59 | Outpatient (REF) | payer MEDICARE, MEDICAID, SELFPAY ==
[2022-03-06 06:02] LABS: MANUAL DIFF FLAG NO
[2022-03-06 06:26] LABS: Basophils Percent Auto 0.2 % (0-2); Eosinophils Absolute Auto 0.2 X10*3/uL (0.0-0.4); Eosinophils Percent Auto 2.8 % (0-4); Hematocrit 30.9 % (42.0-52.0); Hemoglobin 9.9 g/dl (14.0-18.0); Imm Gran Abs Auto 0.07 X10*3/uL (0.00-0.03); Imm Gran Pct Auto 1.2 % (0.0-0.4); Lymphocytes Absolute Auto 0.7 X10*3/uL (1.2-4.9); Lymphocytes Percent Auto 12.2 % (20-40); Mean Corpuscular Hemoglobin 29.5 pg (27.0-33.0); Mean Platelet Volume 10.6 fL (9.4-12.4); Monocytes Absolute Auto 0.6 X10*3/uL (0.1-1.2); Monocytes Percent Auto 11.1 % (2-11); Neutrophils Absolute Auto 4.1 x10*3/uL (2.0-8.3); Neutrophils Percent Auto 72.5 % (45-73); Platelet Count 199 X10*3/uL (160-400); Red Blood Count 3.36 X10*6/uL (4.60-5.80); Red Cell Distribution Width 16.1 % (11.0-16.0); White Blood Count 5.7 X10*3/uL (4.8-10.8)
[2022-03-06 06:42] LABS: Alanine Aminotransferase 35 U/L (0-40); Albumin Level 3.1 g/dL (3.5-5.0); Alkaline Phosphatase 45 U/L (39-117); Anion Gap 14 (12-20); Aspartate Amino Transferase 76 U/L (5-37); Bilirubin Total 0.6 mg/dL (0.0-1.0); Blood Urea Nitrogen 25 mg/dL (9-16); Calcium 9.1 mg/dL (8.4-10.2); Carbon Dioxide 26 mmol/L (22-29); Chloride 107 mmol/L (96-108); Estimated Glomerular Filt Rate > 60; Glucose Random 96 mg/dL (60-115); Potassium 3.9 mmol/L (3.3-5.1); Sodium 143 mmol/L (135-145); Total Protein 5.4 g/dL (6.5-8.0)
== END 2022-03-06 06:00 | disposition home or self-care (01) ==
LOC: HO.MMNH3L 05:59
PROVIDERS: Visit Provider Family Medicine
DX: J96.90 Respiratory failure, unspecified, unspecified whether with hypoxia or hypercapnia (principal); I10 Essential (primary) hypertension; E11.40 Type 2 diabetes mellitus with diabetic neuropathy, unspecified
CPT/HCPCS: 36415; 80053; 85025

== ENCOUNTER 2022-03-17 06:38 | Outpatient (REF) | payer SELFPAY ==
[2022-03-17 06:39] LABS: MANUAL DIFF FLAG NO
[2022-03-17 07:17] LABS: Basophils Absolute Auto 0.1 X10*3/uL (0.0-0.2); Eosinophils Absolute Auto 0.2 X10*3/uL (0.0-0.4); Eosinophils Percent Auto 3.7 % (0-4); Hemoglobin 10.5 g/dl (14.0-18.0); Imm Gran Abs Auto 0.04 X10*3/uL (0.00-0.03); Imm Gran Pct Auto 0.8 % (0.0-0.4); Lymphocytes Percent Auto 21.2 % (20-40); Mean Corpuscular HGB Conc 30.9 g/dl (31.0-36.0); Mean Corpuscular Hemoglobin 28.8 pg (27.0-33.0); Mean Corpuscular Volume 93.2 fL (80.0-98.0); Mean Platelet Volume 9.7 fL (9.4-12.4); Monocytes Absolute Auto 0.5 X10*3/uL (0.1-1.2); Monocytes Percent Auto 10.7 % (2-11); Neutrophils Percent Auto 62.6 % (45-73); Platelet Count 290 X10*3/uL (160-400); Red Blood Count 3.65 X10*6/uL (4.60-5.80); Red Cell Distribution Width 15.7 % (11.0-16.0); White Blood Count 4.9 X10*3/uL (4.8-10.8)
[2022-03-17 07:55] LABS: Anion Gap 18 (12-20); Blood Urea Nitrogen 16 mg/dL (9-16); Calcium 9.3 mg/dL (8.4-10.2); Carbon Dioxide 27 mmol/L (22-29); Chloride 100 mmol/L (96-108); Estimated Glomerular Filt Rate > 60; Glucose Random 72 mg/dL (60-115); Potassium 4.6 mmol/L (3.3-5.1); Sodium 140 mmol/L (135-145)
== END 2022-03-17 06:39 | disposition home or self-care (01) ==
LOC: HO.MMNH3L 06:38
PROVIDERS: Visit Provider Family Medicine
DX: E11.40 Type 2 diabetes mellitus with diabetic neuropathy, unspecified (principal); A49.1 Streptococcal infection, unspecified site; N39.0 Urinary tract infection, site not specified
CPT/HCPCS: 36415; 80048; 85025

== ENCOUNTER 2022-04-03 05:00 | Outpatient (REF) | payer MEDICARE, MEDICAID, SELFPAY ==
[2022-04-04 05:38] LABS: Appearance Urine TURBID; Color Urine YELLOW; Glucose Urine UA NEG (NEG); Leukocyte Esterase Urine 3+ (NEG); Nitrite Urine NEG (NEG); PH 6.5 (5.0-8.0); Specific Gravity - Urine 1.015 (1.005-1.025); UACC Culture Trigger YES; Urine Blood 1+ (NEG); Urine Ketones NEG (NEG); Urine Protein 1+ MG/DL (NEG-TRACE)
[2022-04-04 05:46] LABS: Bacteria Urine 2+ /LPF; WBC Urine TNTC /HPF (0-4)
== END 2022-04-03 05:01 | disposition home or self-care (01) ==
LOC: HO.MMNH3L 05:00
PROVIDERS: Visit Provider Family Medicine
DX: E11.40 Type 2 diabetes mellitus with diabetic neuropathy, unspecified (principal); A49.1 Streptococcal infection, unspecified site; N39.0 Urinary tract infection, site not specified
CPT/HCPCS: 81001; 87086; 87088; 87186

== ENCOUNTER 2022-04-04 05:27 | Outpatient (REF) | payer MEDICARE, MEDICAID, SELFPAY | END 2022-04-04 05:28 | disposition home or self-care (01) | LOC: HO.MMNH3L 05:27 | PROVIDERS: Visit Provider Family Medicine | DX: Z13.89 Encounter for screening for other disorder (principal) ==

== ENCOUNTER 2022-04-07 13:57 | Inpatient (IN) | payer MEDICARE, MEDICAID, SELFPAY ==
--- NOTE | ~2022-04-07 | XR_ITS ---
EXAMINATION: XR CHEST CLINICAL INFORMATION: Chills and weakness COMPARISON: Chest 03/02/2022 TECHNIQUE: Frontal view of the chest was obtained. FINDINGS: The lungs are hypoexpanded but clear. The heart size and pulmonary vascularity is normal. There are pacer electrodes in right atrium and right ventricle. No gross bony abnormality. XR/XR chest 1V IMPRESSION: Hypoexpanded lungs with no acute process seen. Mild cardiomegaly.
--- NOTE | ~2022-04-07 | US_ITS ---
EXAMINATION: US RETROPERITONEAL LIMITED (RENAL ONLY) CLINICAL INFORMATION: Right pyelonephritis. Rule out obstruction.. COMPARISON: CT 03/01/2022 TECHNIQUE: Real-time imaging of the kidneys. FINDINGS: RIGHT KIDNEY: 12.9 x 4.4 x 5.5 cm (SAG x AP x TRV). The kidney is normal in size, contour, and echogenicity. Renal cortical thickness is normal. 3 mm echogenic calculus in the right mid kidney. No hydronephrosis. No solid parenchymal lesions. LEFT KIDNEY: 10.6 x 5.3 x 5.3 cm (SAG x AP x TRV). The kidney is normal in size, contour, and echogenicity. Renal cortical thickness is normal. No focal parenchymal lesions. 8 mm left lower pole shadowing renal calculus. No hydronephrosis. US/US renal BI IMPRESSION: No hydronephrosis bilaterally. Bilateral nonobstructing renal calculi. Asymmetric renal sizes consistent with the degree of left renal atrophy.
[2022-04-07 14:32] VITALS: BP 134/78; BP 97/43; PULSE 106; PULSE 115; RESP 18; TEMP 37.3; O2SAT 95; O2SAT 96; BMI 32.6
--- NOTE | 2022-04-07 14:54 | ED.GENADULT ---
HPI - General Adult General Chief complaint: General Medical Stated complaint: BACK PAIN Time Seen by Provider: 04/07/22 14:52 Source: patient and EMS Mode of arrival: EMS Limitations: no limitations History of Present Illness HPI narrative: 86-year-old male came in for evaluation of back pain. This is an 86-year-old male lives at [facility] with history of diastolic congestive heart failure on Lasix, BPH, AFib, DVT on Xarelto, patient mostly dependent on his most of his daily activity mostly bedridden to wheelchair. 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 Patient also been having chills no fever was reported from the patient. Patient had recent admission for urosepsis that required IV pressors to support his blood pressure. Related Data Home Medications Medication Instructions Recorded Confirmed allopurinol 300 mg tablet 1 tab PO DAILY 06/21/21 04/07/22 escitalopram oxalate 20 mg tablet 1 tab PO DAILY 06/21/21 04/07/22 fenofibrate 160 mg tablet 1 tab PO DAILY 06/21/21 04/07/22 fluticasone furoate 100 1 puff inhalation DAILY 06/21/21 04/07/22 mcg-vilanterol 25 mcg/dose inhalation powder (Breo Ellipta) furosemide 20 mg tablet 3 tab PO DAILY 06/21/21 04/07/22 gabapentin 300 mg capsule 1 cap PO TID 06/21/21 04/07/22 rivaroxaban 20 mg tablet (Xarelto) 1 tab PO DAILY@1700 06/21/21 04/07/22 tamsulosin 0.4 mg capsule 1 cap PO DAILY@1700 06/21/21 04/07/22 valsartan 40 mg tablet 1 tab PO DAILY 06/21/21 04/07/22 trazodone 150 mg tablet 1 tab PO BEDTIME 07/29/21 04/07/22 acetaminophen 325 mg tablet 975 mg PO TID 03/02/22 04/07/22 benzocaine 15 mg-menthol 2.6 mg 1 rebecca mucous membrane Q2H PRN Sore 03/02/22 04/07/22 lozenges (Cepacol Sore Throat Throat (benzocaine-menthol)) bisacodyl 10 mg rectal suppository 10 mg [place] Q24H PRN Constipation 03/02/22 04/07/22 (Dulcolax (bisacodyl)) isosorbide mononitrate 30 mg 30 mg PO DAILY 03/02/22 04/07/22 tablet,extended release 24 hr lorazepam 0.5 mg tablet 0.5 mg PO DAILY 03/02/22 04/07/22 magnesium hydroxide 400 mg/5 mL 30 ml PO Q24H PRN Constipation 03/02/22 04/07/22 oral suspension (Milk of Magnesia) pantoprazole 40 mg tablet,delayed 40 mg PO BID@0630,1630 03/02/22 04/07/22 release (Protonix) tramadol 50 mg tablet 50 mg PO Q12H PRN Pain (Scale 03/02/22 04/07/22 Score 7-10) Lactobacillus acidophilus 1,000 mmu cells PO DAILY 04/07/22 04/07/22 (Acidophilus) ceftriaxone 1 gram solution for 1 g IM DAILY 04/07/22 04/07/22 injection Previous Rx's Medication Instructions Recorded magnesium oxide 400 mg (241.3 mg 400 mg PO BIDPC #60 tabs 07/17/21 magnesium) tablet Allergies Allergy/AdvReac Type Severity Reaction Status Date / Time levofloxacin [LEVOFLOXACIN] Allergy Severe HYPOTENSION Verified 03/01/22 21:29 Penicillins [PCN] Allergy Severe DIFFICULTY Verified 03/01/22 21:29 BREATHING,RASH penicillin V Allergy Unknown sob/rash Verified 03/01/22 21:29 quinine [QUININE] Allergy Unknown UNKNOWN, ? Verified 03/01/22 21:29 Sulfa (Sulfonamide Allergy Unknown UNSURE Verified 03/01/22 21:29 Antibiotics) [SULFA(SULFONAMIDE ANTIBIOTICS)] morphine [MORPHINE] AdvReac Intermediate HYPOTENSION Verified 03/01/22 21:29 MUSCLE RELAXERS Allergy Severe RASH/IMMOBI Uncoded 03/01/22 21:29 LITY Review of Systems Review of Systems: All other systems are reviewed and are negative Constitutional: Reports as per HPI and Reports no additional constitutional complaints Eyes: Reports as per HPI and Reports no additional eye complaints Reports system reviewed and no additional complaints, except as documented Cardiovascular: Reports as per HPI and Reports no additional cardiovascular complaints Respiratory: Reports as per HPI and Reports no additional respiratory complaints Gastrointestinal: Reports as per HPI and Reports no additional gastrointestinal complaints Genitourinary: Reports no additional female genitourinary complaints Musculoskeletal: Reports no additional musculoskeletal complaints Skin/Breast: Reports system reviewed and no additional complaints, except as docu Psychiatric: Reports no additional psychiatric complaints Endocrine: Reports no additional endocrine complaints Hematologic/Lymphatic: Reports no additional hematologic/lymphatic complaints Allergic/Immunologic: Reports no additional allergic/immunologic complaints Reports system reviewed and no additional complaints, except as documented and Reports Abnormal speech present [facility] Past Medical History Medical History Acute kidney injury Atrial fibrillation BPH (benign prostatic hyperplasia) CHF (congestive heart failure) COPD (chronic obstructive pulmonary disease) Diastolic CHF DVT (deep venous thrombosis) Gout History of pulmonary embolism HTN (hypertension) Hypomagnesemia Hypoxia Paroxysmal atrial fibrillation Pneumonitis Presence of permanent cardiac pacemaker Presence of permanent cardiac pacemaker Sepsis secondary to UTI Stasis dermatitis Surgical History Status post placement of cardiac pacemaker Family History Family History Other HTN (hypertension) Heart disease Social History Social History Household Members: None Housing: Assisted Living Facility Do you presently have visiting nurse or other home services: Yes Alcohol intake: never Patient Tobacco Use Status: Former Tobacco user Advance Directives: Yes Advance Directives on File: Yes Advance Directives Date on File: 07/13/21 service: No Current occupational status: retired Physical Exam ED Vital Signs: Vital Signs - 24 hr 04/07/22 14:32 04/07/22 17:23 Temperature 99.1 F Pulse Rate 106 H 80 Respiratory Rate 18 16 Blood Pressure 97/43 L 94/33 L Pulse Oximetry 95 94 Oxygen Delivery Method Room Air Room Air BMI result Body Mass Index 32.6 Vital signs have been reviewed as appeared to be correct. Blood pressure normal. Heart rate elevated. Respiration rate normal. Temperature normal. Oxygen saturation normal. Appearance: Alert. Oriented X3. No acute distress. Head: Normal external exam. Normocephalic. Atraumatic. No Gonzales signs noted. No raccoon eyes noted Eyes: PERRLA. EOMI. Conjunctiva and sclera normal. Eyelids normal. ENT: TM's Normal. Pharynx normal. Uvula midline. Moist mucous membranes. No trismus noted. No drooling noted. No muffled voice noted. Neck: Normal inspection. Neck supple. FROM. No adenopathy. Thyroid Normal. No meningeal signs. No neck mass noted. CVS: Normal heart rate and rhythm. Heart sound normal. No murmurs noted. Pulses normal throughout. Respiratory: No respiratory distress. Painless inspiration. Breath sounds normal. No wheezes/rales/rhonchi noted. Chest nontender. No accessory muscle usage noted or decreased air movement noted. Abdomen: Soft and nontender. Bowel sounds normal in all 4 quadrants. No distention noted. No organomegaly noted. No visible injury noted. Back: No CVA tenderness. Full range of motion noted. Skin: Skin warm and dry. Normal skin color. Normal skin turgor. No rashes/lesions/lacerations noted. Extremities: No lower extremity edema. Extremities exhibit normal range of motion. Extremities nontender. Neuro: Oriented X 3. Cranial nerve exam: II-XII are grossly intact No motor deficit. No sensory deficit. Reflexes normal. Course Course Course Narrative: 86 years old male with right pyelonephritis, meeting criteria for SIRS, with GIN, patient received IV fluids/ceftriaxone. Patient had recent CT showed no obstructing uropathy, today had an ultrasound which showed no hydro or concern of obstruction. Patient to be admitted. Medical Decision Making Lab Data Lab results reviewed: Yes I reviewed the patient's lab results. Result diagrams: 04/07/22 15:30 04/07/22 15:30 Labs: Lab Results 04/07/22 04/07/22 04/07/22 Range/Units 15:30 15:30 15:30 WBC 11.1 H (4.8-10.8) X10*3/uL RBC 3.73 L (4.60-5.80) X10*6/uL Hgb 10.9 L (14.0-18.0) g/dl Hct 34.1 L (42.0-52.0) % MCV 91.4 (80.0-98.0) fL MCH 29.2 (27.0-33.0) pg MCHC 32.0 (31.0-36.0) g/dl RDW 15.9 (11.0-16.0) % Plt Count 268 (160-400) X10*3/uL MPV 9.6 (9.4-12.4) fL Immature Gran % (Auto) 0.5 H (0.0-0.4) % Neut % (Auto) 95.1 H (45-73) % Lymph % (Auto) 2.0 L (20-40) % [place] % (Auto) 1.7 L (2-11) % Eos % (Auto) 0.4 (0-4) % Baso % (Auto) 0.3 (0-2) % Lymph # (Auto) 0.2 L (1.2-4.9) X10*3/uL [place] # (Auto) 0.2 (0.1-1.2) X10*3/uL Eos # (Auto) 0.0 (0.0-0.4) X10*3/uL Baso # (Auto) 0.0 (0.0-0.2) X10*3/uL Abs Immat Gran (auto) 0.06 H (0.00-0.03) X10*3/uL Absolute Neuts (auto) 10.6 H (2.0-8.3) x10*3/uL Absolute Nucleated RBC 0.000 (0.0-0.012) X10*3/uL Nucleated RBC % (auto) 0.0 (0.0-0.2) /100WBC Smear Tech's Comments VERIFIED Sodium 139 (135-145) mmol/L Potassium 4.0 (3.3-5.1) mmol/L Chloride 102 (96-108) mmol/L Carbon Dioxide 25 (22-29) mmol/L Anion Gap 16 (12-20) BUN 30 H D (9-16) mg/dL Creatinine 1.89 H (0.5-1.4) mg/dL Estim Creat Clear Calc 32.9 Estimated GFR 34 Random Glucose 131 H D (60-115) mg/dL Lactic Acid (0.5-2.0) mmol/L Lactic Acid F/U @ 2Hr (0.5-2.0) mmol/L Calcium 9.1 (8.4-10.2) mg/dL Total Bilirubin 0.6 (0.0-1.0) mg/dL Direct Bilirubin 0.3 (0.0-0.5) mg/dL AST 13 D (5-37) U/L ALT < 6 (0-40) U/L Alkaline Phosphatase 51 (39-117) U/L B-Natriuretic Peptide 609 H (<100) pg/mL Total Protein 6.7 D (6.5-8.0) g/dL Albumin 4.0 D (3.5-5.0) g/dL Lipase 41 (8-78) U/L Urine Color Urine Appearance Urine pH (5.0-8.0) Ur Specific [place] (1.005-1.025) Urine Protein (NEG-TRACE) MG/DL Urine Glucose (UA) (NEG) MG/DL Urine Ketones (NEG) MG/DL Urine Blood (NEG) Urine Nitrite (NEG) Ur Leukocyte Esterase (NEG) Urine RBC (0) /HPF Urine WBC (0-4) /HPF Ur Squamous Epith Cells /LPF Urine Bacteria /LPF Influenza Type A (PCR) (Negative) Influenza Type B (PCR) (Negative) RSV RNA Qual (PCR) (Negative) SARS-CoV-2 RNA (RT-PCR) (Negative) 04/07/22 04/07/22 04/07/22 Range/Units 15:30 15:30 15:30 WBC (4.8-10.8) X10*3/uL RBC (4.60-5.80) X10*6/uL Hgb (14.0-18.0) g/dl Hct (42.0-52.0) % MCV (80.0-98.0) fL MCH (27.0-33.0) pg MCHC (31.0-36.0) g/dl RDW (11.0-16.0) % Plt Count (160-400) X10*3/uL MPV (9.4-12.4) fL Immature Gran % (Auto) (0.0-0.4) % Neut % (Auto) (45-73) % Lymph % (Auto) (20-40) % [place] % (Auto) (2-11) % Eos % (Auto) (0-4) % Baso % (Auto) (0-2) % Lymph # (Auto) (1.2-4.9) X10*3/uL [place] # (Auto) (0.1-1.2) X10*3/uL Eos # (Auto) (0.0-0.4) X10*3/uL Baso # (Auto) (0.0-0.2) X10*3/uL Abs Immat Gran (auto) (0.00-0.03) X10*3/uL Absolute Neuts (auto) (2.0-8.3) x10*3/uL Absolute Nucleated RBC (0.0-0.012) X10*3/uL Nucleated RBC % (auto) (0.0-0.2) /100WBC Smear Tech's Comments Sodium (135-145) mmol/L Potassium (3.3-5.1) mmol/L Chloride (96-108) mmol/L Carbon Dioxide (22-29) mmol/L Anion Gap (12-20) BUN (9-16) mg/dL Creatinine (0.5-1.4) mg/dL Estim Creat Clear Calc Estimated GFR Random Glucose (60-115) mg/dL Lactic Acid 2.5 H* (0.5-2.0) mmol/L Lactic Acid F/U @ 2Hr (0.5-2.0) mmol/L Calcium (8.4-10.2) mg/dL Total Bilirubin (0.0-1.0) mg/dL Direct Bilirubin (0.0-0.5) mg/dL AST (5-37) U/L ALT (0-40) U/L Alkaline Phosphatase (39-117) U/L B-Natriuretic Peptide (<100) pg/mL Total Protein (6.5-8.0) g/dL Albumin (3.5-5.0) g/dL Lipase (8-78) U/L Urine Color YELLOW Urine Appearance CLOUDY Urine pH 5.5 (5.0-8.0) Ur Specific [place] 1.015 (1.005-1.025) Urine Protein 1+ H (NEG-TRACE) MG/DL Urine Glucose (UA) NEG (NEG) MG/DL Urine Ketones NEG (NEG) MG/DL Urine Blood 2+ H (NEG) Urine Nitrite POS H (NEG) Ur Leukocyte Esterase 2+ H (NEG) Urine RBC 5-9 H (0) /HPF Urine WBC TNTC H (0-4) /HPF Ur Squamous Epith Cells NONE /LPF Urine Bacteria NONE /LPF Influenza Type A (PCR) NEGATIVE (Negative) Influenza Type B (PCR) NEGATIVE (Negative) RSV RNA Qual (PCR) NEGATIVE (Negative) SARS-CoV-2 RNA (RT-PCR) NEGATIVE (Negative) 04/07/22 Range/Units 18:23 WBC (4.8-10.8) X10*3/uL RBC (4.60-5.80) X10*6/uL Hgb (14.0-18.0) g/dl Hct (42.0-52.0) % MCV (80.0-98.0) fL MCH (27.0-33.0) pg MCHC (31.0-36.0) g/dl RDW (11.0-16.0) % Plt Count (160-400) X10*3/uL MPV (9.4-12.4) fL Immature Gran % (Auto) (0.0-0.4) % Neut % (Auto) (45-73) % Lymph % (Auto) (20-40) % [place] % (Auto) (2-11) % Eos % (Auto) (0-4) % Baso % (Auto) (0-2) % Lymph # (Auto) (1.2-4.9) X10*3/uL [place] # (Auto) (0.1-1.2) X10*3/uL Eos # (Auto) (0.0-0.4) X10*3/uL Baso # (Auto) (0.0-0.2) X10*3/uL Abs Immat Gran (auto) (0.00-0.03) X10*3/uL Absolute Neuts (auto) (2.0-8.3) x10*3/uL Absolute Nucleated RBC (0.0-0.012) X10*3/uL Nucleated RBC % (auto) (0.0-0.2) /100WBC Smear Tech's Comments Sodium (135-145) mmol/L Potassium (3.3-5.1) mmol/L Chloride (96-108) mmol/L Carbon Dioxide (22-29) mmol/L Anion Gap (12-20) BUN (9-16) mg/dL Creatinine (0.5-1.4) mg/dL Estim Creat Clear Calc Estimated GFR Random Glucose (60-115) mg/dL Lactic Acid (0.5-2.0) mmol/L Lactic Acid F/U @ 2Hr 1.5 (0.5-2.0) mmol/L Calcium (8.4-10.2) mg/dL Total Bilirubin (0.0-1.0) mg/dL Direct Bilirubin (0.0-0.5) mg/dL AST (5-37) U/L ALT (0-40) U/L Alkaline Phosphatase (39-117) U/L B-Natriuretic Peptide (<100) pg/mL Total Protein (6.5-8.0) g/dL Albumin (3.5-5.0) g/dL Lipase (8-78) U/L Urine Color Urine Appearance Urine pH (5.0-8.0) Ur Specific [place] (1.005-1.025) Urine Protein (NEG-TRACE) MG/DL Urine Glucose (UA) (NEG) MG/DL Urine Ketones (NEG) MG/DL Urine Blood (NEG) Urine Nitrite (NEG) Ur Leukocyte Esterase (NEG) Urine RBC (0) /HPF Urine WBC (0-4) /HPF Ur Squamous Epith Cells /LPF Urine Bacteria /LPF Influenza Type A (PCR) (Negative) Influenza Type B (PCR) (Negative) RSV RNA Qual (PCR) (Negative) SARS-CoV-2 RNA (RT-PCR) (Negative) Imaging Data Chest x-ray: Attestation: I personally reviewed and interpreted this imaging study as follows: Radiologist's impression: Hypoexpanded lungs with no acute process seen. RENAL ULTRASOUND: Attestation: I personally reviewed and interpreted this imaging study as follows: Radiologist's impression: No hydronephrosis bilaterally. Bilateral nonobstructing renal calculi. Asymmetric renal sizes consistent with the degree of left renal atrophy. Discharge Plan Discharge Clinical Impression: Acute UTI, Acute pyelonephritis, GIN (acute kidney injury) Patient Disposition: Admitted As Inpatient
[2022-04-07 15:46] LABS: Basophils Percent Auto 0.3 % (0-2); Eosinophils Percent Auto 0.4 % (0-4); Hematocrit 34.1 % (42.0-52.0); Hemoglobin 10.9 g/dl (14.0-18.0); Imm Gran Abs Auto 0.06 X10*3/uL (0.00-0.03); Imm Gran Pct Auto 0.5 % (0.0-0.4); Lymphocytes Absolute Auto 0.2 X10*3/uL (1.2-4.9); MANUAL DIFF FLAG SCAN; Mean Corpuscular Hemoglobin 29.2 pg (27.0-33.0); Mean Corpuscular Volume 91.4 fL (80.0-98.0); Mean Platelet Volume 9.6 fL (9.4-12.4); Monocytes Absolute Auto 0.2 X10*3/uL (0.1-1.2); Monocytes Percent Auto 1.7 % (2-11); Neutrophils Absolute Auto 10.6 x10*3/uL (2.0-8.3); Neutrophils Percent Auto 95.1 % (45-73); Platelet Count 268 X10*3/uL (160-400); Red Blood Count 3.73 X10*6/uL (4.60-5.80); Red Cell Distribution Width 15.9 % (11.0-16.0); SCAN SMEAR FLAG 1; White Blood Count 11.1 X10*3/uL (4.8-10.8)
[2022-04-07 15:52] LABS: Appearance Urine CLOUDY; Color Urine YELLOW; Glucose Urine UA NEG (NEG); Leukocyte Esterase Urine 2+ (NEG); Nitrite Urine POS (NEG); PH 5.5 (5.0-8.0); Specific Gravity - Urine 1.015 (1.005-1.025); UACC Culture Trigger YES; Urine Blood 2+ (NEG); Urine Ketones NEG (NEG); Urine Protein 1+ MG/DL (NEG-TRACE)
[2022-04-07 16:09] LABS: Alanine Aminotransferase < 6 U/L (0-40); Alkaline Phosphatase 51 U/L (39-117); Anion Gap 16 (12-20); Aspartate Amino Transferase 13 U/L (5-37); Bilirubin Direct 0.3 mg/dL (0.0-0.5); Bilirubin Total 0.6 mg/dL (0.0-1.0); Blood Urea Nitrogen 30 mg/dL (9-16); Calcium 9.1 mg/dL (8.4-10.2); Carbon Dioxide 25 mmol/L (22-29); Chloride 102 mmol/L (96-108); Creatinine Clr Calc Pharmacy 32.9; Estimated Glomerular Filt Rate 34; Glucose Random 131 mg/dL (60-115); Lipase 41 U/L (8-78); Sodium 139 mmol/L (135-145); Total Protein 6.7 g/dL (6.5-8.0)
[2022-04-07 16:10] LABS: Lactic Acid 2.5 mmol/L (0.5-2.0); SLIDE REVIEW VERIFIED
[2022-04-07 16:11] LABS: B Type Natriuretic Peptide 609 pg/mL (<100)
[2022-04-07 16:18] LABS: WBC Urine TNTC /HPF (0-4)
[2022-04-07] MEDS: 0.9 % Sodium Chloride 1,000 ML 999 ML IV (17:04)
[2022-04-07 17:07] LABS: Influenza A PCR NEGATIVE (Negative); Influenza B PCR NEGATIVE (Negative); Resp Syncy Virus RNA Qual PCR NEGATIVE (Negative); SARS COV2 PCR INHOUSE NEGATIVE (Negative)
[2022-04-07 17:23] VITALS: BP 94/33; PULSE 80; RESP 16; O2SAT 94
[2022-04-07 17:42] LABS: Reflex Lactate? Lactic Acid Added
[2022-04-07] MEDS: cefTRIAXone sodium 1 GM in 0.9 % Sodium Chloride 50 ML IV (18:08)
[2022-04-07 18:39] LABS: ~Lactic Acid-LAB USE ONLY 1.5 mmol/L (0.5-2.0)
--- NOTE | 2022-04-07 19:09 | PHA.MEDREC ---
Pharmacy Consult ? Medication Reconciliation Pharmacy has completed the medication reconciliation.
--- NOTE | 2022-04-07 21:19 | PM.IMHP ---
History of Present Illness Date of Service: 04/07/22 Chief Complaint: backpain This is an 86-year-old male with past medical history of AFib, CHF, COPD, diastolic heart failure, DVT, history of pulmonary emboli, hypertension, hypomagnesemia, status post cardiac pacemaker who presents the hospital with complaints of right flank pain. Patient reports that his symptoms started few days ago, he has chills, increased urinary frequency, some nausea with no vomiting, diarrhea for past few days 1 episode in the morning, he reports chronic leg swelling with no increased shortness of breath, no orthopnea or PND, he denies any cough, no chest pain, no abdominal pain, and no headache or change in vision. No numbness and tingling. On arrival to the ED patient hemodynamically stable found to have a heart rate of 106 blood pressure slightly soft with a systolic of 97 and diastolic 43, satting 95% on room air Labs are significant for the VC count of 11.1, hemoglobin 10.9, hematocrit of 34, BUN of 30, creatinine of 1.89 with a baseline of 0.9, lactic acid of 2.5, BNP of 609, UA that is positive for nitrites, leukocyte Estrace, WBC. Renal ultrasound shows no hydronephrosis, bilateral nonobstructing renal calculi as well as asymmetric renal size is consistent with the degree of the left renal atrophy Patient will be admitted for further management Review of Systems Review of Systems: Yes all other systems are reviewed and are negative [facility] Medical History Acute kidney injury Atrial fibrillation BPH (benign prostatic hyperplasia) CHF (congestive heart failure) COPD (chronic obstructive pulmonary disease) Diastolic CHF DVT (deep venous thrombosis) Gout History of pulmonary embolism HTN (hypertension) Hypomagnesemia Hypoxia Paroxysmal atrial fibrillation Pneumonitis Presence of permanent cardiac pacemaker Presence of permanent cardiac pacemaker Sepsis secondary to UTI Stasis dermatitis Family History Other HTN (hypertension) Heart disease Surgical History Status post placement of cardiac pacemaker Social History Household Members: None Housing: Assisted Living Facility Do you presently have visiting nurse or other home services: Yes Alcohol intake: never Patient Tobacco Use Status: Former Tobacco user Advance Directives: Yes Advance Directives on File: Yes Advance Directives Date on File: 07/13/21 service: No Current occupational status: retired Meds Allergies Allergy/AdvReac Type Severity Reaction Status Date / Time levofloxacin [LEVOFLOXACIN] Allergy Severe HYPOTENSION Verified 03/01/22 21:29 Penicillins [PCN] Allergy Severe DIFFICULTY Verified 03/01/22 21:29 BREATHING,RASH penicillin V Allergy Unknown sob/rash Verified 03/01/22 21:29 quinine [QUININE] Allergy Unknown UNKNOWN, ? Verified 03/01/22 21:29 Sulfa (Sulfonamide Allergy Unknown UNSURE Verified 03/01/22 21:29 Antibiotics) [SULFA(SULFONAMIDE ANTIBIOTICS)] morphine [MORPHINE] AdvReac Intermediate HYPOTENSION Verified 03/01/22 21:29 MUSCLE RELAXERS Allergy Severe RASH/IMMOBI Uncoded 03/01/22 21:29 LITY Home Medications Medication Instructions Recorded Confirmed Last Taken Type allopurinol 300 mg tablet 1 tab PO DAILY 06/21/21 04/07/22 03/01/22 History escitalopram oxalate 20 mg tablet 1 tab PO DAILY 06/21/21 04/07/22 03/01/22 History fenofibrate 160 mg tablet 1 tab PO DAILY 06/21/21 04/07/22 03/01/22 History fluticasone furoate 100 1 puff inhalation DAILY 06/21/21 04/07/22 03/01/22 History mcg-vilanterol 25 mcg/dose inhalation powder (Breo Ellipta) furosemide 20 mg tablet 3 tab PO DAILY 06/21/21 04/07/22 03/01/22 History gabapentin 300 mg capsule 1 cap PO TID 06/21/21 04/07/22 03/01/22 History rivaroxaban 20 mg tablet (Xarelto) 1 tab PO DAILY@0 06/21/21 04/07/22 03/01/22 History tamsulosin 0.4 mg capsule 1 cap PO DAILY@1700 06/21/21 04/07/22 03/01/22 History valsartan 40 mg tablet 1 tab PO DAILY 06/21/21 04/07/22 03/01/22 History trazodone 150 mg tablet 1 tab PO BEDTIME 10/04/07/22 03/01/22 History acetaminophen 325 mg tablet 975 mg PO TID 03/02/22 04/07/22 03/01/22 History benzocaine 15 mg-menthol 2.6 mg 1 rebecca mucous membrane Q2H PRN Sore 03/02/22 04/07/22 Unknown History lozenges (Cepacol Sore Throat Throat (benzocaine-menthol)) bisacodyl 10 mg rectal suppository 10 mg FL Q24H PRN Constipation 03/02/22 04/07/22 Unknown History (Dulcolax (bisacodyl)) isosorbide mononitrate 30 mg 30 mg PO DAILY 03/02/22 04/07/22 03/01/22 History tablet,extended release 24 hr lorazepam 0.5 mg tablet 0.5 mg PO DAILY 03/02/22 04/07/22 03/01/22 History magnesium hydroxide 400 mg/5 mL 30 ml PO Q24H PRN Constipation 03/02/22 04/07/22 Unknown History oral suspension (Milk of Magnesia) pantoprazole 40 mg tablet,delayed 40 mg PO BID@0630,1630 03/02/22 04/07/22 03/01/22 History release (Protonix) tramadol 50 mg tablet 50 mg PO Q12H PRN Pain (Scale 03/02/22 04/07/22 Unknown History Score 7-10) Lactobacillus acidophilus 1,000 mmu cells PO DAILY 04/07/22 04/07/22 Unknown History (Acidophilus) ceftriaxone 1 gram solution for 1 g IM DAILY 04/07/22 04/07/22 Unknown History injection Physical Exam Vital Signs and Narrative: Vital Signs: Last Vital Signs Temp 99.1 F 04/07/22 14:32 Pulse 80 04/07/22 17:23 Resp 16 04/07/22 17:23 BP 94/33 L 04/07/22 17:23 Pulse Ox 94 04/07/22 17:23 O2 Del Method 04/07/22 17:23 BMI result Body Mass Index 32.6 Const: General: cooperative and no acute distress Orientation/consciousness: patient oriented x3 Eyes: General: appearance normal, both eyes and all related structures Resp: Effort & Inspection: normal respiratory effort Auscultation: clear to auscultation bilaterally Cardio: Rate: regular rate Rhythm: regular rhythm GI: Palpation (GI): Soft to palpation Auscultation: normal bowel sounds : Other: Right CVA tenderness Skin: General skin exam: no rashes or lesions noted Neuro: General: patient oriented x3 Cognition (Neuro): normal cognition Extrem: General: Yes normal to inspection and Yes no pedal edema Results Labs CBC and Chem 7: 04/08/22 04:26 04/08/22 04:26 Labs: Laboratory Results - last 24 hr 04/07/22 04/07/22 04/07/22 15:30 15:30 15:30 MCV 91.4 MCH 29.2 MCHC 32.0 RDW 15.9 Plt Count 268 MPV 9.6 Immature Gran % (Auto) 0.5 H Neut % (Auto) 95.1 H Lymph % (Auto) 2.0 L Rowan % (Auto) 1.7 L Eos % (Auto) 0.4 Baso % (Auto) 0.3 Lymph # (Auto) 0.2 L Rowan # (Auto) 0.2 Eos # (Auto) 0.0 Baso # (Auto) 0.0 Abs Immat Gran (auto) 0.06 H Absolute Neuts (auto) 10.6 H Absolute Nucleated RBC 0.000 Nucleated RBC % (auto) 0.0 Smear Tech's Comments VERIFIED Anion Gap 16 Estim Creat Clear Calc 32.9 Estimated GFR 34 Random Glucose 131 H D Lactic Acid Lactic Acid F/U @ 2Hr Calcium 9.1 Total Bilirubin 0.6 Direct Bilirubin 0.3 AST 13 D ALT < 6 Alkaline Phosphatase 51 B-Natriuretic Peptide 609 H Total Protein 6.7 D Albumin 4.0 D Lipase 41 Urine Color Urine Appearance Urine pH Ur Specific Dike Urine Protein Urine Glucose (UA) Urine Ketones Urine Blood Urine Nitrite Ur Leukocyte Esterase Urine RBC Urine WBC Ur Squamous Epith Cells Urine Bacteria Influenza Type A (PCR) Influenza Type B (PCR) RSV RNA Qual (PCR) SARS-CoV-2 RNA (RT-PCR) 04/07/22 04/07/22 04/07/22 15:30 15:30 15:30 MCV MCH MCHC RDW Plt Count MPV Immature Gran % (Auto) Neut % (Auto) Lymph % (Auto) Rowan % (Auto) Eos % (Auto) Baso % (Auto) Lymph # (Auto) Rowan # (Auto) Eos # (Auto) Baso # (Auto) Abs Immat Gran (auto) Absolute Neuts (auto) Absolute Nucleated RBC Nucleated RBC % (auto) Smear Tech's Comments Anion Gap Estim Creat Clear Calc Estimated GFR Random Glucose Lactic Acid 2.5 H* Lactic Acid F/U @ 2Hr Calcium Total Bilirubin Direct Bilirubin AST ALT Alkaline Phosphatase B-Natriuretic Peptide Total Protein Albumin Lipase Urine Color YELLOW Urine Appearance CLOUDY Urine pH 5.5 Ur Specific Dike 1.015 Urine Protein 1+ H Urine Glucose (UA) NEG Urine Ketones NEG Urine Blood 2+ H Urine Nitrite POS H Ur Leukocyte Esterase 2+ H Urine RBC 5-9 H Urine WBC TNTC H Ur Squamous Epith Cells NONE Urine Bacteria NONE Influenza Type A (PCR) NEGATIVE Influenza Type B (PCR) NEGATIVE RSV RNA Qual (PCR) NEGATIVE SARS-CoV-2 RNA (RT-PCR) NEGATIVE 04/07/22 18:23 MCV MCH MCHC RDW Plt Count MPV Immature Gran % (Auto) Neut % (Auto) Lymph % (Auto) Rowan % (Auto) Eos % (Auto) Baso % (Auto) Lymph # (Auto) Rowan # (Auto) Eos # (Auto) Baso # (Auto) Abs Immat Gran (auto) Absolute Neuts (auto) Absolute Nucleated RBC Nucleated RBC % (auto) Smear Tech's Comments Anion Gap Estim Creat Clear Calc Estimated GFR Random Glucose Lactic Acid Lactic Acid F/U @ 2Hr 1.5 Calcium Total Bilirubin Direct Bilirubin AST ALT Alkaline Phosphatase B-Natriuretic Peptide Total Protein Albumin Lipase Urine Color Urine Appearance Urine pH Ur Specific Dike Urine Protein Urine Glucose (UA) Urine Ketones Urine Blood Urine Nitrite Ur Leukocyte Esterase Urine RBC Urine WBC Ur Squamous Epith Cells Urine Bacteria Influenza Type A (PCR) Influenza Type B (PCR) RSV RNA Qual (PCR) SARS-CoV-2 RNA (RT-PCR) Imaging Radiologist's Impressions: Impressions Chest X-Ray 04/07/22 15:45 IMPRESSION: Hypoexpanded lungs with no acute process seen. Mild cardiomegaly. Renal Ultrasound 04/07/22 19:04 IMPRESSION: No hydronephrosis bilaterally. Bilateral nonobstructing renal calculi. Asymmetric renal sizes consistent with the degree of left renal atrophy. Assessment and Plan (1) Acute UTI: Status: Acute (2) Acute pyelonephritis: Status: Acute (3) GIN (acute kidney injury): Status: Acute Plan 86-year-old male with past medical history of CHF, HTN, among others who presents to the hospital with flank pain found to have UTI as well as pyelonephritis # UTI/acute pyelonephritis - positive UA with CVA tenderness - will treat with IV antibiotics - cultures # GIN - likely in the setting of UTI - will treat with IV fluids - follow BMP - hold allopurinol # history of CHF - not in exacerbation - does have slightly elevated BNP - patient in GIN likely contributing to the elevated BNP - at this time will continue IV fluids for the GIN and monitor respiratory status - continue furosemide, Imdur, hold valsartan in the setting of GIN # hypertension - stable - hold valsartan of GIN # AFib - continue Xarelto DVT prophylaxis: Xarelto Given the acute pyelonephritis/UTI, GIN and requirement for IV fluids as well as IV antibiotics patient will require minimum 2 night hospital stay for further management and monitoring Quality Stroke Does the patient have a stroke diagnosis?: No VTE Prior VTE?: No VTE Risk Level:: Medical - moderate - high VTE Device Contraindication: Treatment Not Indicated VTE Drug Contraindication: N/A - Med Ordered
[2022-04-07] MEDS: Lactated Ringers 1,000 ML 999 ML IV (21:45)
[2022-04-07 23:00] VITALS: BP 98/54; PULSE 91; RESP 18; O2SAT 95
[2022-04-08] VITALS (8 sets, daily range): BP systolic 80–113; BP diastolic 47–72; PULSE 78–115; RESP 14–19; TEMP 36.8–37; O2SAT 92–95
--- NOTE | 2022-04-08 | ECG_ITS ---
Test Reason : PACEMAKER MISFIRING Blood Pressure : / mmHG Vent. Rate : 078 BPM Atrial Rate : 078 BPM P-R Int : 022 ms QRS Dur : 180 ms QT Int : 484 ms P-R-T Axes : 074 -66 112 degrees QTc Int : 551 ms Ventricular-paced rhythm Abnormal ECG When compared with ECG of 01-MAR-2022 21:38, Vent. rate has decreased BY 25 BPM Referred By: Sly Guerrero Electronically Signed By:MARIANGEL DONIS
[2022-04-08] MEDS: 0.9 % Sodium Chloride Flush 3 ML SYRINGE IVFLUSH ×3 (02:53→15:54)
[2022-04-08] MEDS: traMADoL HCL 50 MG TABLET PO (03:14)
[2022-04-08 04:34] LABS: Basophils Percent Auto 0.3 % (0-2); Eosinophils Absolute Auto 0.2 X10*3/uL (0.0-0.4); Eosinophils Percent Auto 1.4 % (0-4); Hematocrit 33.3 % (42.0-52.0); Hemoglobin 10.6 g/dl (14.0-18.0); Imm Gran Abs Auto 0.04 X10*3/uL (0.00-0.03); Imm Gran Pct Auto 0.4 % (0.0-0.4); Lymphocytes Absolute Auto 0.3 X10*3/uL (1.2-4.9); Lymphocytes Percent Auto 2.5 % (20-40); MANUAL DIFF FLAG SCAN; Mean Corpuscular HGB Conc 31.8 g/dl (31.0-36.0); Mean Corpuscular Hemoglobin 29.2 pg (27.0-33.0); Mean Corpuscular Volume 91.7 fL (80.0-98.0); Mean Platelet Volume 9.4 fL (9.4-12.4); Monocytes Absolute Auto 0.5 X10*3/uL (0.1-1.2); Neutrophils Absolute Auto 9.8 x10*3/uL (2.0-8.3); Neutrophils Percent Auto 90.4 % (45-73); Platelet Count 241 X10*3/uL (160-400); Red Blood Count 3.63 X10*6/uL (4.60-5.80); Red Cell Distribution Width 16.1 % (11.0-16.0); SCAN SMEAR FLAG 1; White Blood Count 10.8 X10*3/uL (4.8-10.8)
[2022-04-08 04:54] LABS: Anion Gap 13 (12-20); Blood Urea Nitrogen 27 mg/dL (9-16); Calcium 8.8 mg/dL (8.4-10.2); Carbon Dioxide 27 mmol/L (22-29); Chloride 103 mmol/L (96-108); Creatinine Clr Calc Pharmacy 38.6; Estimated Glomerular Filt Rate 41; Glucose Random 101 mg/dL (60-115); Potassium 4.1 mmol/L (3.3-5.1); Sodium 139 mmol/L (135-145)
[2022-04-08 05:08] LABS: SLIDE REVIEW VERIFIED
[2022-04-08] MEDS: Omeprazole 20 MG CAPSULE.DR PO ×2 (07:04→15:52)
[2022-04-08] MEDS: Isosorbide Mononitrate 30 MG TAB.ER.24H PO (07:40)
[2022-04-08] MEDS: Magnesium Oxide 400 MG TABLET PO ×2 (07:41→18:05)
[2022-04-08] MEDS: Furosemide 20 MG TABLET 60 MG PO (07:41)
[2022-04-08] MEDS: LORazepam 0.5 MG TABLET PO (07:41)
[2022-04-08] MEDS: Escitalopram Oxalate 20 MG TABLET PO (07:41)
[2022-04-08] MEDS: Gabapentin 300 MG CAPSULE PO ×3 (07:41→20:27)
[2022-04-08] MEDS: Lactated Ringers 1,000 ML 100 ML IVCONT ×2 (07:50→18:01)
[2022-04-08] MEDS: Fenofibrate 160 MG TABLET PO (10:32)
--- NOTE | 2022-04-08 15:20 | MHC.CM.PN ---
PATIENT IS IN FROM [facility] REFERRAL PLACED FOR FACILITY TO FOLLOW HCP ON FILE AND VERIFIED. CALL TO HCP DAUGHTER CHANDRIKA @[phone] WITH A MESSAGE TO CALL THIS GMAT TUTOR BACK AT HER CONVENIENCE IT WAS RELAYED THAT REASON FOR CALL IS NOT EMERGENCY
--- NOTE | 2022-04-08 17:49 | HO.PM.IMPN ---
Subjective Subjective Date of Service: 04/08/22 Interval History: uti/gin Review of Systems still has dysuria denies any chest pain or sob or abd pain Physical Exam Vital Signs: Vital Signs: Last Vital Signs Temp 98.4 F 04/08/22 16:13 Pulse 105 H 04/08/22 16:13 Resp 16 04/08/22 16:13 BP 92/61 04/08/22 16:13 Pulse Ox 95 04/08/22 16:13 O2 Del Method 04/08/22 16:13 BMI result Body Mass Index 32.6 Appearance: Alert.? Oriented X3.? not in distress.? cvs: rrr, [id number] , no murmur res: clear to auscultation ,no rhonchii or wheezing abd: no rebound or guarding ,nt, bs present. has cva tenderness ext pulses present , no cyanosis . neuro: axo3 , nonfocal Objective Data Active Medications Acetaminophen (Acetaminophen 325 Mg Tablet) 650 mg PO Q6H PRN PRN Reason: Pain, Mild (Pain Scale 1-3) Benzocaine (Throat Lozenge, Medicated Lozenge) 1 lozenge MUCOUS MEM Q2H PRN PRN Reason: Sore Throat Bisacodyl (Bisacodyl 10 Mg Supp.Rect) 10 mg [place] Q24H PRN PRN Reason: Constipation Docusate Sodium (Docusate Sodium 100 Mg Capsule) 100 mg PO DAILY PRN PRN Reason: Constipation Escitalopram Oxalate (Escitalopram Oxalate 20 Mg Tablet) 20 mg PO DAILY ON LICENSE OF [facility] Last Admin: 04/08/22 07:41 Dose: 20 mg Documented By: JILLIAN Fenofibrate (Fenofibrate 160 Mg Tablet) 160 mg PO DAILY ON LICENSE OF [facility] Last Admin: 04/08/22 10:32 Dose: 160 mg Documented By: RICHARD Fluticasone/Vilanterol (Fluticasone/Vilanterol 100/25 Blst.W.Dev) 1 puff INHALE RDAILY ON LICENSE OF [facility] Last Admin: 04/08/22 07:57 Dose: Not Given Documented By: ADELA Non-Admin Reason: Med Not Available Furosemide (Furosemide 20 Mg Tablet) 60 mg PO DAILY ON LICENSE OF [facility]; Protocol Last Admin: 04/08/22 07:41 Dose: 60 mg Documented By: JILLIAN Gabapentin (Gabapentin 300 Mg Capsule) 300 mg PO TID ON LICENSE OF [facility] Last Admin: 04/08/22 15:52 Dose: 300 mg Documented By: ALONSO Ceftriaxone Sodium 1 gm/ (Sodium Chloride) 50 mls @ 100 mls/hr IV Q24H ON LICENSE OF [facility] Lactated Ringer's (Lr) 1,000 mls @ 100 mls/hr IVCONT .Q10H ON LICENSE OF [facility] Last Admin: 04/08/22 07:50 Dose: 100 mls/hr Documented By: JILLIAN Isosorbide Mononitrate (Isosorbide Mononitrate 30 Mg Tab.Er.24h) 30 mg PO DAILY ON LICENSE OF [facility]; Protocol Last Admin: 04/08/22 07:40 Dose: 30 mg Documented By: JILLIAN Lorazepam (Lorazepam 0.5 Mg Tablet) 0.5 mg PO DAILY ON LICENSE OF [facility] Last Admin: 04/08/22 07:41 Dose: 0.5 mg Documented By: JILLIAN Magnesium Hydroxide (Milk Of Magnesia 30 Ml Oral.Susp) 30 ml PO Q24H PRN PRN Reason: Constipation Magnesium Oxide (Magnesium Oxide 400 Mg Tablet) 400 mg PO BIDPC ON LICENSE OF [facility] Last Admin: 04/08/22 07:41 Dose: 400 mg Documented By: JILLIAN Omeprazole (Omeprazole 20 Mg Capsule.Dr) 20 mg PO BID@0630,1630 ON LICENSE OF [facility] Last Admin: 04/08/22 15:52 Dose: 20 mg Documented By: ALONSO Ondansetron HCl (Ondansetron Hcl 4 Mg/2 Ml Vial) 4 mg IVPUSH Q8H PRN PRN Reason: Nausea and Vomiting Rivaroxaban (Rivaroxaban 15 Mg Tablet) 15 mg PO DAILY@1700 ON LICENSE OF [facility] Sodium Chloride (0.9 % Sodium Chloride Flush 3 Ml Syringe) 3 ml IVFLUSH QSHIFT ON LICENSE OF [facility] Last Admin: 04/08/22 15:54 Dose: 3 ml Documented By: ALONSO Tramadol HCl (Tramadol Hcl 50 Mg Tablet) 50 mg PO Q12H PRN PRN Reason: Pain (Scale Score 7-10) Last Admin: 04/08/22 03:14 Dose: 50 mg Documented By: MAXIMINO Trazodone HCl (Trazodone Hcl 50 Mg Tablet) 150 mg PO BEDTIME ON LICENSE OF [facility] Labs CBC & Chem 7: 04/08/22 04:26 04/08/22 04:26 Labs: Laboratory Results - last 24 hr 04/07/22 04/08/22 04/08/22 18:23 04:26 04:26 MCV 91.7 MCH 29.2 MCHC 31.8 RDW 16.1 H Plt Count 241 MPV 9.4 Immature Gran % (Auto) 0.4 Neut % (Auto) 90.4 H Lymph % (Auto) 2.5 L Coke % (Auto) 5.0 Eos % (Auto) 1.4 Baso % (Auto) 0.3 Lymph # (Auto) 0.3 L Coke # (Auto) 0.5 Eos # (Auto) 0.2 Baso # (Auto) 0.0 Abs Immat Gran (auto) 0.04 H Absolute Neuts (auto) 9.8 H Absolute Nucleated RBC 0.000 Nucleated RBC % (auto) 0.0 Smear Tech's Comments VERIFIED Anion Gap 13 Estim Creat Clear Calc 38.6 Estimated GFR 41 Random Glucose 101 Lactic Acid F/U @ 2Hr 1.5 Calcium 8.8 Microbiology Microbiology Results: Microbiology 04/07/22 15:30 Blood Culture - Preliminary Blood - Venous No growth after 24 hours. 04/07/22 15:30 Blood Culture - Preliminary Blood - Venous No growth after 24 hours. 04/07/22 Unknown Urine Culture - Preliminary Urine clean catch - Urine fisher top Culture in progress. Assessment and Plan (1) Acute UTI: Status: Acute (2) Acute pyelonephritis: Status: Acute Plan 86-year-old male with past medical history of CHF, HTN, among others who presents to the hospital with flank pain found to have UTI as well as pyelonephritis # UTI/acute pyelonephritis - positive UA with CVA tenderness - will treat with IV antibiotics - cultures # GIN - likely in the setting of UTI - will treat with IV fluids - follow BMP - hold allopurinol # history of CHF - not in exacerbation - does have slightly elevated BNP - patient in GIN likely contributing to the elevated BNP - at this time will continue IV fluids for the GIN and monitor respiratory status - continue furosemide, Imdur, hold valsartan in the setting of GIN # hypertension - stable - hold valsartan of GIN # AFib - continue Xarelto DVT prophylaxis: Xarelto need for inpatient:UTI/acute pyelonephritis/gin- need iv hydration, antibiotics. Quality Stroke Does the patient have a stroke diagnosis?: No VTE Prior VTE?: No VTE Risk Level:: Medical - moderate - high VTE Device Contraindication: Treatment Not Indicated VTE Drug Contraindication: N/A - Med Ordered
[2022-04-08] MEDS: Rivaroxaban 15 MG TABLET PO (18:05)
[2022-04-08] MEDS: cefTRIAXone sodium 1 GM in 0.9 % Sodium Chloride 50 ML IV (18:05)
[2022-04-08] MEDS: traZODone HCL 50 MG TABLET 150 MG PO (20:27)
--- NOTE | 2022-04-08 22:50 | PC.NURSE ---
pt pacemaker misfiring, MD aware and EDT at bedside for EKG.
[2022-04-09] MEDS: Lactated Ringers 1,000 ML 100 ML IVCONT (04:33)
[2022-04-09 05:36] VITALS: BP 106/65; PULSE 94; RESP 18; TEMP 36.9; O2SAT 92
[2022-04-09] MEDS: Omeprazole 20 MG CAPSULE.DR PO ×2 (05:41→16:02)
[2022-04-09 06:40] LABS: Anion Gap 14 (12-20); Blood Urea Nitrogen 19 mg/dL (9-16); Calcium 8.6 mg/dL (8.4-10.2); Carbon Dioxide 26 mmol/L (22-29); Chloride 102 mmol/L (96-108); Estimated Glomerular Filt Rate 57; Glucose Random 91 mg/dL (60-115); Potassium 3.6 mmol/L (3.3-5.1); Sodium 138 mmol/L (135-145)
[2022-04-09 08:00] VITALS: BP 111/60; PULSE 91; RESP 22; O2SAT 92
[2022-04-09] MEDS: Gabapentin 300 MG CAPSULE PO ×3 (08:48→20:08)
[2022-04-09] MEDS: LORazepam 0.5 MG TABLET PO (08:48)
[2022-04-09] MEDS: Escitalopram Oxalate 20 MG TABLET PO (08:48)
[2022-04-09] MEDS: Magnesium Oxide 400 MG TABLET PO ×2 (08:48→17:39)
[2022-04-09] MEDS: Fenofibrate 160 MG TABLET PO (08:48)
--- NOTE | 2022-04-09 09:48 | PC.NURSE ---
Pt is a/o. VSS. medicated per dec. Pt takes meds whole with water. Pt c/o some back pain, so Pt boosted in the hospital bed with ax1 and repositioned, HOB elevated and pt verbalized a decrease in pain. Pt Lungs sound clear. Pt uses the urinal appropriately. Callbell and belongings within reach.
--- NOTE | 2022-04-09 10:55 | PC.NURSE ---
fluids stopped @1042 per DC'd order.
[2022-04-09 11:02] VITALS: BP 93/60; PULSE 118; RESP 15; O2SAT 94
--- NOTE | 2022-04-09 11:33 | P.CDIC_ITS ---
CDI Concurrent Query Documentation Clarification: PHYSICIAN'S DOCUMENTATION REQUEST Date of Query: 04/09/22 1132 Patient Name: Leoniads Linder Admit Date: 04/07/22 Dear Doctor, A review of the medical record indicates additional documentation may be needed. Please review below and update the documentation accordingly. Clinical Indicators: SIRS is documented in the medical record. Other clinical indicators include: Risk Factors/Clinical Indicators/Treatments ED: 04/07 - Course of care: Patient met SIRS criteria w GIN/UTI/Pyelonephritis. LA 2.5 WBC 11.1 HR 105/106 BP 94/33 RR 22 IV fluids, IV Antibiotics, IV pressors Please clarify which of the following most accurately describes the above abnormalities: * Sepsis * Systemic manifestations of infection, with 2 or more SIRS criteria which include: -Fever > 100.4F or hypothermia < 96.8 F -Leukocytosis - WBC > 12,000 or leukopenia, WBC < 4,000 or > 10% bands -Tachycardia > 90 beats/minute -Tachypnea - RR > 20 breaths/minute or PaCO2 < 32mmHg * Indicate the knows or suspected organism * Indicate the known or suspected underlying infection, such as UTI, pneumonia, or cellulitis * Indicate if a suspected bacteria infection of unknown source * Indicate if associated with an implanted device such as a F/C, PICC line, orthopedic hardware, etc * Indicate if there is associated organ dysfunction, such as renal or respiratory failure * SIRS due to a non-infectious source * Indicate the known or suspected etiology * Indicate if there is associated organ dysfunction, such as renal or respiratory failure * Other * Unable to determine Use of terms such as suspected, likely, concern for, or probable (associated with a specific diagnosis that is being evaluated, monitored, or treated as if it exists) are acceptable and can be coded in the inpatient setting, when documented at the time of discharge. Thank you, Myrtle Tesfaye [facility], CDIS Extension: [phone] Please use your independent medical judgment in providing your response. THIS QUERY IS PART OF THE PERMANENT MEDICAL RECORD Provider Response: Other Other Diagnosis: no sepsis
--- NOTE | 2022-04-09 12:20 | MHC.CM.PN ---
Plan dc back to [facility] today. Scheduled ambulance for transport at 3pm. Met with patient, he is agreeable with plan MD and RN aware of dc time. Informed facility of dc time.
--- NOTE | 2022-04-09 13:51 | P.PNIM_ITS ---
Subjective Subjective Date of Service: 04/09/22 Interval History: uti/pyelonephrirtis Review of Systems Patient seems to be improving, blood pressure is borderline Denies any chest pain or shortness of breath or abdominal pain or fever chills. Physical Exam Vital Signs: Vital Signs: Last Vital Signs Temp 98.5 F 04/09/22 05:36 Pulse 118 H 04/09/22 11:02 Resp 15 04/09/22 11:02 BP 93/60 04/09/22 11:02 Pulse Ox 94 04/09/22 11:02 O2 Del Method 04/09/22 11:02 BMI result Body Mass Index 32.6 ? Appearance: Alert.? Oriented X3.? not in distress.? cvs: rrr, [id number] , no murmur res: clear to auscultation ,no rhonchii or wheezing abd: no rebound or guarding ,nt, bs present. has cva tenderness ext pulses present , no cyanosis . neuro: axo3 , nonfocal Objective Data Active Medications Acetaminophen (Acetaminophen 325 Mg Tablet) 650 mg PO Q6H PRN PRN Reason: Pain, Mild (Pain Scale 1-3) Benzocaine (Throat Lozenge, Medicated Lozenge) 1 lozenge MUCOUS MEM Q2H PRN PRN Reason: Sore Throat Bisacodyl (Bisacodyl 10 Mg Supp.Rect) 10 mg ID Q24H PRN PRN Reason: Constipation Docusate Sodium (Docusate Sodium 100 Mg Capsule) 100 mg PO DAILY PRN PRN Reason: Constipation Escitalopram Oxalate (Escitalopram Oxalate 20 Mg Tablet) 20 mg PO DAILY [facility] Last Admin: 04/09/22 08:48 Dose: 20 mg Documented By: SHERIE Fenofibrate (Fenofibrate 160 Mg Tablet) 160 mg PO DAILY [facility] Last Admin: 04/09/22 08:48 Dose: 160 mg Documented By: SHERIE Fluticasone/Vilanterol (Fluticasone/Vilanterol 100/25 Blst.W.Dev) 1 puff INHALE RDAILY [facility] Last Admin: 04/09/22 10:23 Dose: Not Given Documented By: SHERIE Non-Admin Reason: Med Not Available Furosemide (Furosemide 20 Mg Tablet) 60 mg PO DAILY [facility]; Protocol Last Admin: 04/08/22 07:41 Dose: 60 mg Documented By: JILLIAN Gabapentin (Gabapentin 300 Mg Capsule) 300 mg PO TID [facility] Last Admin: 04/09/22 08:48 Dose: 300 mg Documented By: SHERIE Isosorbide Mononitrate (Isosorbide Mononitrate 30 Mg Tab.Er.24h) 30 mg PO DAILY [facility]; Protocol Last Admin: 04/08/22 07:40 Dose: 30 mg Documented By: JILLIAN Lorazepam (Lorazepam 0.5 Mg Tablet) 0.5 mg PO DAILY [facility] Last Admin: 04/09/22 08:48 Dose: 0.5 mg Documented By: SHERIE Magnesium Hydroxide (Milk Of Magnesia 30 Ml Oral.Susp) 30 ml PO Q24H PRN PRN Reason: Constipation Magnesium Oxide (Magnesium Oxide 400 Mg Tablet) 400 mg PO BIDPC [facility] Last Admin: 04/09/22 08:48 Dose: 400 mg Documented By: SHERIE Omeprazole (Omeprazole 20 Mg Capsule.Dr) 20 mg PO BID@0630,1630 [facility] Last Admin: 04/09/22 05:41 Dose: 20 mg Documented By: BRADLEY Ondansetron HCl (Ondansetron Hcl 4 Mg/2 Ml Vial) 4 mg IVPUSH Q8H PRN PRN Reason: Nausea and Vomiting Rivaroxaban (Rivaroxaban 15 Mg Tablet) 15 mg PO DAILY@1700 [facility] Last Admin: 04/08/22 18:05 Dose: 15 mg Documented By: ALONSO Sodium Chloride (0.9 % Sodium Chloride Flush 3 Ml Syringe) 3 ml IVFLUSH QSHIFT [facility] Last Admin: 04/09/22 08:48 Dose: Not Given Documented By: SHERIE Non-Admin Reason: IV Running Tramadol HCl (Tramadol Hcl 50 Mg Tablet) 50 mg PO Q12H PRN PRN Reason: Pain (Scale Score 7-10) Last Admin: 04/08/22 03:14 Dose: 50 mg Documented By: MAXIMINO Trazodone HCl (Trazodone Hcl 50 Mg Tablet) 150 mg PO BEDTIME [facility] Last Admin: 04/08/22 20:27 Dose: 150 mg Documented By: VISHNU Labs CBC & Chem 7: 04/08/22 04:26 04/09/22 05:49 Labs: Laboratory Results - last 24 hr 04/09/22 05:49 Anion Gap 14 Estim Creat Clear Calc 51.0 Estimated GFR 57 Random Glucose 91 Calcium 8.6 Microbiology Microbiology Results: Microbiology 04/07/22 Unknown Urine Culture - Preliminary Urine clean catch - Urine fisher top Gram negative yvette 04/07/22 15:30 Blood Culture - Preliminary Blood - Venous No growth after 24 hours. 04/07/22 15:30 Blood Culture - Preliminary Blood - Venous No growth after 24 hours. Assessment and Plan (1) Acute UTI: Status: Acute (2) Acute pyelonephritis: Status: Acute (3) GIN (acute kidney injury): Status: Acute Plan 86-year-old male with past medical history of CHF, HTN, among others who presents to the hospital with flank pain found to have UTI as well as pyelonephritis # UTI/acute pyelonephritis - positive UA with CVA tenderness - will treat with IV antibiotics - cultures urine -gram-negative broad , blood culture neg@24hours # GIN: seems improved - likely in the setting of UTI - will treat with IV fluids - follow BMP - hold allopurinol # history of CHF - not in exacerbation - does have slightly elevated BNP - patient in GIN likely contributing to the elevated BNP - at this time will continue IV fluids for the GIN and monitor respiratory status hold furosemide, Imdur, hold valsartan in the setting of GIN and boderline blood pressure. # hypertension - stable - hold valsartan of GIN # AFib - continue Xarelto DVT prophylaxis: Xarelto need for inpatient:UTI/acute pyelonephritis/gin- need iv hydration, antibiotics, blood cultures -Patient had-history of septic shock due to E coli bacteremia-during last admission, will wait for blood culture negative at 48hrs Quality Stroke Does the patient have a stroke diagnosis?: No VTE Prior VTE?: No VTE Risk Level:: Medical - moderate - high VTE Device Contraindication: Treatment Not Indicated VTE Drug Contraindication: N/A - Med Ordered
[2022-04-09 15:16] VITALS: BP 138/84; PULSE 108; RESP 20; O2SAT 95
[2022-04-09] MEDS: traMADoL HCL 50 MG TABLET PO (16:01)
[2022-04-09] MEDS: Rivaroxaban 15 MG TABLET PO (17:39)
[2022-04-09 19:43] VITALS: BP 114/50; PULSE 80; RESP 27; O2SAT 95
[2022-04-09] MEDS: traZODone HCL 50 MG TABLET 150 MG PO (20:07)
[2022-04-09 23:15] VITALS: BP 105/63; PULSE 59; RESP 16; O2SAT 93
[2022-04-09] MEDS: 0.9 % Sodium Chloride Flush 3 ML SYRINGE IVFLUSH (23:20)
[2022-04-10 04:10] VITALS: BP 101/51; PULSE 67; RESP 12; TEMP 36.2; O2SAT 98
--- NOTE | 2022-04-10 04:36 | PC.NURSE ---
patient got reposition ,fresh blanket and bed pads given ,also fresh water ,tissues and small trash nag attached to bed side table .
[2022-04-10] MEDS: Omeprazole 20 MG CAPSULE.DR PO (06:22)
[2022-04-10 08:00] VITALS: BP 113/59; PULSE 71; RESP 16; O2SAT 94
[2022-04-10] MEDS: Escitalopram Oxalate 20 MG TABLET PO (08:01)
[2022-04-10] MEDS: 0.9 % Sodium Chloride Flush 3 ML SYRINGE IVFLUSH (08:01)
[2022-04-10] MEDS: traMADoL HCL 50 MG TABLET PO (08:01)
[2022-04-10] MEDS: LORazepam 0.5 MG TABLET PO (08:01)
[2022-04-10] MEDS: Magnesium Oxide 400 MG TABLET PO (08:01)
[2022-04-10] MEDS: Gabapentin 300 MG CAPSULE PO (08:01)
[2022-04-10] MEDS: Fenofibrate 160 MG TABLET PO (08:01)
--- NOTE | 2022-04-10 08:06 | PC.NURSE ---
Pt is a/o. Pt boosted in the bed and a pillow placed under his left side. Pt uses the urinal appropriately. Lungs sound diminished. VSS and pt is on room air. Pt provided with breakfast and ate about 75%. Resting in the hospital bed. Callbell and belongings within reach.
[2022-04-10] MEDS: Fluticasone/Vilanterol 100/25 BLST.W.DEV 1 PUFF INHALE (08:39)
[2022-04-10 08:43] VITALS: PULSE 70; RESP 16; O2SAT 94
--- NOTE | 2022-04-10 10:23 | PM.DS ---
DS: Providers Provider Date of Service: 04/10/22 Date of admission: 04/07/22 21:21 Primary care physician: Avinash Patrick MD DS: Diagnosis Discharge Diagnosis (1) Acute UTI: Status: Acute (2) Acute pyelonephritis: Status: Acute (3) GIN (acute kidney injury): Status: Acute DS: Summary Hospital Course Hospital Course: 86-year-old male with past medical history of CHF, HTN, among others who presents to the hospital with flank pain found to have UTI as well as pyelonephritis. Hospital course: Patient came to the hospital because of pyelonephritis /uti-started on IV antibiotics seems to be improving: started on iv antibiotics seems improving : blood culture preliminary neg@24hrs and urine culture grew E coli sensitive to ceftriaxone patient was switched to p.o. Ceftin upon discharge. Please complete the course of antibiotics. GIN: Improved Hydration and holding valsartan-monitor BMP outpatient in 1 week. Hold worked valsartan until repeating BMP. Above management discussed with the patient in detail length he understand and in agreement with the above plan, time spent 50 minutes and 50% time spent on counseling. Significant findings: As above. Procedures performed: None. Treatment and response: As above. Complications: None. Time Spent with Patient Time attestation: Total time spent providing and/or coordinating discharge services: Discharge coordination time: Greater than 30 minutes Quality: Safe Use of Opioids Does Pt have an Active Cancer Diagnosis on the Problem List?: No Quality: Stroke Does the patient have a stroke diagnosis?: No Physical Exam Vital Signs: Vital Signs: Last Vital Signs Temp 97.2 F 04/10/22 04:10 Pulse 70 04/10/22 08:43 Resp 16 04/10/22 08:43 BP 113/59 L 04/10/22 08:00 Pulse Ox 94 04/10/22 08:00 O2 Del Method 04/10/22 08:00 O2 Flow Rate 2 04/10/22 04:10 BMI result Body Mass Index 32.6 Appearance: Alert.? Oriented X3.? not in distress.? cvs: rrr, [id number] , no murmur res: clear to auscultation ,no rhonchii or wheezing abd: no rebound or guarding ,nt, bs present. no cva tenderness today ext pulses present , no cyanosis . neuro: axo3 , nonfocal DS: Data Data Completed and Pending Completed studies during hospitalization [Text1]: Procedures Insertion of Infusion Device into Superior Vena Cava, Percutaneous Approach (03/02/22) Introduction of Vasopressor into Central Vein, Percutaneous Approach (03/02/22) Ultrasonography of Superior Vena Cava, Guidance (03/02/22) Labs on day of discharge: Preliminary micro results at discharge 04/07/22 15:30 Blood Culture - Preliminary Blood - Venous No growth after 48 hours. 04/07/22 15:30 Blood Culture - Preliminary Blood - Venous No growth after 48 hours. Urine Culture Final 04/10/22-0743 Organism 1 Escherichia coli Quant 50,000 to 100,000 cfu/mL E coli M.I.C. RX --------- --- Ampicillin >=32 R Extended Spectrum Beta Lactam NEG - Ceftriaxone <=1 S Gentamicin <=1 S Levofloxacin >=8 R Nitrofurantoin <=16 S Trimethoprim/Sulfamethoxazole >=320 R Blood Culture (Second) Preliminary 04/09/22-174 No growth after 48 hours. US/US renal BI IMPRESSION: No hydronephrosis bilaterally. Bilateral nonobstructing renal calculi. ? Asymmetric renal sizes consistent with the degree of left renal atrophy. XR/XR chest 1V IMPRESSION: Hypoexpanded lungs with no acute process seen. ? Mild cardiomegaly. Discharge Plan Discharge Patient Disposition: [facility] Discharge Diagnosis: gin,uti/pyelonephritis [facility]errals: [facility] [Outside] - 1 Week Avinash Patrick MD [Primary Care Provider] - 1 Week Discharge Medications: New cefuroxime axetil 500 mg tablet 500 mg PO BID Qty: 14 0RF Continued tamsulosin 0.4 mg capsule 1 cap PO DAILY@1700 gabapentin 300 mg capsule 1 cap PO TID allopurinol 300 mg tablet 1 tab PO DAILY escitalopram oxalate 20 mg tablet 1 tab PO DAILY fenofibrate 160 mg tablet 1 tab PO DAILY Xarelto 20 mg tablet 1 tab PO DAILY@1700 fluticasone furoate-vilanterol [Breo Ellipta] 100-25 mcg/dose blister with device 1 puff inhalation DAILY magnesium oxide 400 mg (241.3 mg magnesium) Tablet 400 mg PO BIDPC Qty: 60 0RF Acidophilus Capsule 1,000 mmu cells PO DAILY trazodone 150 mg tablet 1 tab PO BEDTIME bisacodyl [Dulcolax (bisacodyl)] 10 mg Suppository 10 mg MT Q24H PRN (Reason: Constipation) Cepacol Sore Throat (imer-men) 15-2.6 mg Lozenge 1 rebecca MUCOUS MEMBRANE Q2H PRN (Reason: Sore Throat) acetaminophen 325 mg Tablet 975 mg PO TID isosorbide mononitrate 30 mg Tablet Extended Release 24 Hr 30 mg PO DAILY Hold Instructions: Resume on 03/12/22. tramadol 50 mg Tablet 50 mg PO Q12H PRN (Reason: Pain (Scale Score 7-10)) lorazepam 0.5 mg Tablet 0.5 mg PO DAILY magnesium hydroxide [Milk of Magnesia] 400 mg/5 mL Suspension 30 ml PO Q24H PRN (Reason: Constipation) pantoprazole [Protonix] 40 mg Tablet,Delayed Release (Dr/Ec) 40 mg PO BID@0630,1630 Held furosemide 20 mg tablet 3 tab PO DAILY Hold Instructions: Resume on 04/11/22. valsartan 40 mg tablet 1 tab PO DAILY Hold Instructions: Resume on 04/14/22. Discontinued ceftriaxone 1 gram recon soln 1 g IM DAILY Rx Instructions: FOR 10 DAYS 04/07-04/17 Discharge Orders: Discharge Order (Routine); Ordered 04/10/22 Ordered By: Francis Kay Diet: Advance to usual diet Activity on Discharge: As tolerated Stand Alone Forms: Patient Portal Discharge page Care Plan Goals: Patient came to the hospital because of pyelonephritis /uti-started on IV antibiotics seems to be improving: started on iv antibiotics seems improving : blood culture preliminary neg@24hrs and urine culture grew E coli sensitive to ceftriaxone patient was switched to p.o. Ceftin upon discharge. Please complete the course of antibiotics. GIN: Improved Hydration and holding valsartan-monitor BMP outpatient in 1 week. Hold worked valsartan until repeating BMP. Health Concerns: as above. Plan of Treatment: as above. Assessment: as above.
[2022-04-10 11:45] VITALS: BP 120/62; PULSE 61; RESP 13; TEMP 35.6; O2SAT 94
--- NOTE | 2022-04-10 13:27 | MHC.CM.PN ---
PT WILL DC BACK TO [facility] TODAY VIA BLS TRANSPORT REQUESTED FOR 1500 HOURS
--- NOTE | 2022-04-10 15:23 | PC.NURSE ---
Report given to [facility] nurse and [facility]. Care transferred at this time.
[2022-04-10 15:27] VITALS: BP 127/67; PULSE 94; RESP 16; O2SAT 96
== END 2022-04-10 15:27 | disposition skilled nursing facility (03) | DRG 683 ==
LOC: HO.ED 17:55 → HO.EDOVER 21:44
PROVIDERS: Admitting Provider Internal Medicine; Emergency Provider Emergency Medicine; PCP Family Medicine; Visit Provider Internal Medicine
DX: N17.9 Acute kidney failure, unspecified (principal); I50.32 Chronic diastolic (congestive) heart failure; N10 Acute pyelonephritis; N40.0 Benign prostatic hyperplasia without lower urinary tract symptoms; M10.9 Gout, unspecified; G89.29 Other chronic pain; Z99.3 Dependence on wheelchair; N20.0 Calculus of kidney; I11.0 Hypertensive heart disease with heart failure; I48.91 Unspecified atrial fibrillation; M54.9 Dorsalgia, unspecified; Z95.0 Presence of cardiac pacemaker; Z20.822 Contact with and (suspected) exposure to COVID-19; Z86.718 Personal history of other venous thrombosis and embolism; Z87.891 Personal history of nicotine dependence; B96.20 Unspecified Escherichia coli [E. coli] as the cause of diseases classified elsewhere; Z87.440 Personal history of urinary (tract) infections; Z88.0 Allergy status to penicillin; Z88.2 Allergy status to sulfonamides; Z88.5 Allergy status to narcotic agent; Z88.8 Allergy status to other drugs, medicaments and biological substances; Z79.51 Long term (current) use of inhaled steroids; Z79.01 Long term (current) use of anticoagulants; Z79.899 Other long term (current) drug therapy
CPT/HCPCS: 0241U; 36415; 71045; 76775; 80048; 80076; 81001; 81003; 83605; 83690; 83880; 85025; 87040; 87086; 87088; 87186; 93005; 99285; J0696

== ENCOUNTER 2022-05-09 05:44 | Outpatient (REF) | payer MEDICARE, MEDICAID, SELFPAY ==
[2022-05-09 06:27] LABS: Blood Urea Nitrogen 32 mg/dL (9-16); Estimated Glomerular Filt Rate 44
== END 2022-05-09 05:45 | disposition home or self-care (01) ==
LOC: HO.MMNH3L 05:44
PROVIDERS: Visit Provider Family Medicine
DX: J44.9 Chronic obstructive pulmonary disease, unspecified (principal); E11.9 Type 2 diabetes mellitus without complications; I10 Essential (primary) hypertension
CPT/HCPCS: 36415; 82565; 84520

== ENCOUNTER 2022-06-30 15:42 | Outpatient (REF) | payer MEDICARE, MEDICAID, SELFPAY | END 2022-06-30 15:43 | disposition home or self-care (01) | LOC: HO.LNP 15:42 | PROVIDERS: Visit Provider Family Medicine | DX: N39.0 Urinary tract infection, site not specified (principal) | CPT/HCPCS: 87086; 87088; 87186 ==

== ENCOUNTER 2022-07-01 06:12 | Outpatient (REF) | payer MEDICARE, MEDICAID, SELFPAY ==
[2022-07-01 07:13] LABS: Appearance Urine Cloudy; Color Urine Other; Glucose Urine UA Negative (Negative); Leukocyte Esterase Urine Large (3+) (Negative); Nitrite Urine Positive (Negative); Specific Gravity - Urine 1.015 (1.005-1.025); UMIC TRIGGER UA YES; Urine Blood Large (3+) (Negative); Urine Ketones Negative (Negative); Urine Protein 100 (2+) mg/dL (Neg-Trace)
[2022-07-01 07:19] LABS: WBC Urine >50 /HPF (0-5)
[2022-07-01 07:24] LABS: Bacteria Urine Trace (None Seen); Hyaline Casts Urine 0-2 /LPF (0-2)
[2022-07-01 07:25] LABS: Squamous Epithelial Cell Urine 0-2 /HPF (0-2)
== END 2022-07-01 06:13 | disposition home or self-care (01) ==
LOC: HO.MMNH3L 06:12
PROVIDERS: Visit Provider Family Medicine
DX: R31.9 Hematuria, unspecified (principal)
CPT/HCPCS: 81001; 87086; 87088

== ENCOUNTER 2022-09-10 08:55 | Outpatient (REF) | payer SELFPAY ==
[2022-09-10 09:20] LABS: Appearance Urine Turbid; Color Urine RED; Glucose Urine UA Negative (Negative); UMIC TRIGGER UA YES; Urine Blood Large (3+) (Negative); Urine Ketones Negative (Negative); Urine Protein 300 (3+) mg/dL (Neg-Trace)
[2022-09-10 09:22] LABS: Leukocyte Esterase Urine Negative (Negative)
[2022-09-10 09:23] LABS: Nitrite Urine Negative (Negative)
[2022-09-10 09:25] LABS: Bacteria Urine None Seen (None Seen); Hyaline Casts Urine 0-2 /LPF (0-2); RBC Urine >20 /HPF (0-2); WBC Urine 21-50 /HPF (0-5)
== END 2022-09-10 08:56 | disposition home or self-care (01) ==
LOC: HO.MMNH3L 08:55
PROVIDERS: Visit Provider Family Medicine
DX: N40.0 Benign prostatic hyperplasia without lower urinary tract symptoms (principal); N39.0 Urinary tract infection, site not specified; F03.90 Unspecified dementia, unspecified severity, without behavioral disturbance, psychotic disturbance, mood disturbance, and anxiety
CPT/HCPCS: 81001; 87086

== ENCOUNTER 2023-05-12 13:06 | Outpatient (AMB) | payer MEDICARE, MEDICAID, SELFPAY ==
--- NOTE | 2023-05-12 13:07 | A.OFFVIS_ITS ---
Intake Vital Signs 05/12/23 13:10 Height 5 ft 8 in Weight 212 lb BMI 32.2 BP 110/56 L Blood Pressure Location Rt brachial Position Sitting Pulse 86 Intake Visit Reasons: Abdominal Pains Intake Note: Leonidas presents in the office as a new patient. CC: He states that he is not having abdominal pain. He states he has a little bit of constipation and diarrhea - they take turns. Linen Controller Required: No Allergies levofloxacin [LEVOFLOXACIN] Allergy (Severe, Verified 05/12/23 13:12) HYPOTENSION Penicillins [PCN] Allergy (Severe, Verified 05/12/23 13:12) DIFFICULTY BREATHING,RASH penicillin V Allergy (Unknown, Verified 05/12/23 13:12) sob/rash quinine [QUININE] Allergy (Unknown, Verified 05/12/23 13:12) UNKNOWN, ? Sulfa (Sulfonamide Antibiotics) [SULFA(SULFONAMIDE ANTIBIOTICS)] Allergy (Unknown, Verified 05/12/23 13:12) UNSURE morphine [MORPHINE] Adverse Reaction (Intermediate, Verified 05/12/23 13:12) HYPOTENSION MUSCLE RELAXERS Allergy (Severe, Uncoded 05/12/23 13:12) RASH/IMMOBILITY HPI HPI Comments History of Present Illness Details This is a 88y.o M with PMH of CHF, COPD, DVT, history of PE, HTN, gout, dysphagia who is presenting to the office for abdominal pain History was obtained from the pt who states that for the past month he has been experiencing lower abdominal pain assoc with fluctuating BMs from constipation to diarrhea. Unable to comment whether there is any blood in BMs. Assoc with decrease in appetite, unsure if he has lost weight. In addition, he also reports difficulty swallowing certain textures of foods - this appears to be a chronic issue and has been seen by Dr Cruz for this in the past. Last EGD 2019 without any obv striture or stenosis. Pt wonders if his swallowing is worse due to cough - which he reports has progressed in the last few months and is now always productive. Throws up brown/almonte sputum each time. Has hx of COPD and takes inhalers everyday which have not helped this cough. [facility] Medical History Acute kidney injury Atrial fibrillation BPH (benign prostatic hyperplasia) CHF (congestive heart failure) COPD (chronic obstructive pulmonary disease) Diastolic CHF DVT (deep venous thrombosis) Gout History of pulmonary embolism HTN (hypertension) Hypomagnesemia Hypoxia Paroxysmal atrial fibrillation Pneumonitis Presence of permanent cardiac pacemaker Presence of permanent cardiac pacemaker Sepsis secondary to UTI Stasis dermatitis Surgical History Status post placement of cardiac pacemaker Family History Other HTN (hypertension) Heart disease Social History Household Members: None Housing: Assisted Living Facility Do you presently have visiting nurse or other home services: Yes Alcohol intake: never Patient Tobacco Use Status: Former Tobacco user Advance Directives Date on File: 07/13/21 service: No Current occupational status: retired Review of Systems Const All systems reviewed & are unremarkable except as noted in HPI and below Physical Exam Vital Signs: Last Vital Signs Pulse 86 05/12/23 13:10 BP 110/56 L 05/12/23 13:10 BMI result Body Mass Index 32.2 Gen appear: Elderly male on a stretcher HEENT: nonicteric, no cervical lymphadenopathy Chest: Exp wheezing CVS: Regular S1/S2 Abd: soft, nontender, nondistended, bowel sounds + Ext: no peripheral edema Neuro: A/Ox3, noted to move all extremities spontaneously Psych: interacting appropriately Assessment & Plan Assessment & Plan (1) Hemoptysis: Code(s): R04.2 - Hemoptysis (2) Dysphagia: Code(s): R13.10 - Dysphagia, unspecified (3) Anemia: Code(s): D64.9 - Anemia, unspecified (4) Change in bowel habit: Code(s): R19.4 - Change in bowel habit Plan 1. Review of labs showed anemia as well. Will get updated labs. 2. For his abd pain and change in bowel habits - will likely need endoscopic eval that can be set up with EGD if needed based on results of barium swallow (see below). Given frailty, will favor getting a CT first to see if any actio nable finding on the CT noninvasively to explain hx sx. BMP ordered to check renal function in anticipation. 3. Dysphagia is chronic and nonprogressive. Likely due to dysmotility and presbyesophagus based on previous assessment. BArium swallow ordered. 4. Chest XR has been ordered to eval his productive cough with hemoptysis. Follow up in 6 weeks Orders: Orders Complete Blood Count no Diff Today D64.9 - Anemia, unspecified Ferritin Today D64.9 - Anemia, unspecified IRON PROFILE Today D64.9 - Anemia, unspecified Basic Metabolic Panel Today D64.9 - Anemia, unspecified FL barium swallow Today R13.10 - Dysphagia, unspecified XR chest 2V Today R04.2 - Hemoptysis Coding Level of Care Code New Pt Level 5 (53267) Diagnoses Hemoptysis R04.2 Dysphagia R13.10 Anemia D64.9 Change in bowel habit R19.4
[2023-05-12 13:10] VITALS: BP 110/56; PULSE 86; BMI 32.2
== END 2023-05-13 09:39 | disposition home or self-care (01) ==
PROVIDERS: PCP Family Medicine; Visit Provider Internal Medicine
DX: R04.2 Hemoptysis (principal); R13.10 Dysphagia, unspecified; D64.9 Anemia, unspecified; R19.4 Change in bowel habit
CPT/HCPCS: 99204

== ENCOUNTER → 2023-05-12 13:06 | Outpatient (BNVA) | payer MEDICARE, SELFPAY | PROVIDERS: PCP Family Medicine; Visit Provider Internal Medicine | DX: R13.10 Dysphagia, unspecified (principal); R04.2 Hemoptysis; D64.9 Anemia, unspecified; R19.4 Change in bowel habit | CPT/HCPCS: 99202 ==

== ENCOUNTER 2023-05-22 20:07 | Outpatient (REF) | payer MEDICARE, MEDICAID, SELFPAY | END 2023-05-22 20:08 | disposition home or self-care (01) | LOC: HO.MMNH3L 20:07 | PROVIDERS: Visit Provider Family Medicine | DX: R50.9 Fever, unspecified (principal) | CPT/HCPCS: 87070 ==

== ENCOUNTER 2023-06-16 11:33 | Outpatient (REF) | payer MEDICARE, MEDICAID, SELFPAY ==
[2023-06-16 11:37] LABS: MANUAL DIFF FLAG NO
[2023-06-16 11:41] LABS: Basophils Percent Auto 0.8 % (0-2); Eosinophils Absolute Auto 0.1 X10*3/uL (0.0-0.4); Eosinophils Percent Auto 3.3 % (0-4); Hematocrit 35.2 % (42.0-52.0); Hemoglobin 11.2 g/dl (14.0-18.0); Imm Gran Abs Auto 0.02 X10*3/uL (0.00-0.03); Imm Gran Pct Auto 0.5 % (0.0-0.4); Lymphocytes Absolute Auto 0.7 X10*3/uL (1.2-4.9); Lymphocytes Percent Auto 17.5 % (20-40); Mean Corpuscular HGB Conc 31.8 g/dl (31.0-36.0); Mean Corpuscular Hemoglobin 29.8 pg (27.0-33.0); Mean Corpuscular Volume 93.6 fL (80.0-98.0); Mean Platelet Volume 10.5 fL (9.4-12.4); Monocytes Absolute Auto 0.4 X10*3/uL (0.1-1.2); Monocytes Percent Auto 9.3 % (2-11); Neutrophils Absolute Auto 2.8 x10*3/uL (2.0-8.3); Neutrophils Percent Auto 68.6 % (45-73); Platelet Count 191 X10*3/uL (160-400); Red Blood Count 3.76 X10*6/uL (4.60-5.80); Red Cell Distribution Width 15.2 % (11.0-16.0)
[2023-06-16 11:58] LABS: Alanine Aminotransferase 7 U/L (0-40); Albumin Level 3.9 g/dL (3.5-5.0); Alkaline Phosphatase 37 U/L (39-117); Anion Gap 12 (12-20); Aspartate Amino Transferase 17 U/L (5-37); Bilirubin Total 0.4 mg/dL (0.0-1.0); Blood Urea Nitrogen 37 mg/dL (9-16); Calcium 9.8 mg/dL (8.4-10.2); Carbon Dioxide 34 mmol/L (22-29); Chloride 101 mmol/L (96-108); Estimated Glomerular Filt Rate 52; Glucose Random 124 mg/dL (60-115); Potassium 3.8 mmol/L (3.3-5.1); Sodium 143 mmol/L (135-145); Total Protein 6.6 g/dL (6.5-8.0)
== END 2023-06-16 11:34 | disposition home or self-care (01) ==
LOC: HO.MMNH3L 11:33
PROVIDERS: Visit Provider Family Medicine
DX: J44.9 Chronic obstructive pulmonary disease, unspecified (principal); I73.9 Peripheral vascular disease, unspecified; I10 Essential (primary) hypertension
CPT/HCPCS: 36415; 80053; 85025

== ENCOUNTER 2023-06-19 05:50 | Outpatient (REF) | payer MEDICARE, MEDICAID, SELFPAY ==
[2023-06-19 05:53] LABS: MANUAL DIFF FLAG NO
[2023-06-19 06:53] LABS: Basophils Percent Auto 0.7 % (0-2); Eosinophils Absolute Auto 0.2 X10*3/uL (0.0-0.4); Eosinophils Percent Auto 5.2 % (0-4); Hematocrit 34.9 % (42.0-52.0); Hemoglobin 10.9 g/dl (14.0-18.0); Imm Gran Abs Auto 0.02 X10*3/uL (0.00-0.03); Imm Gran Pct Auto 0.5 % (0.0-0.4); Lymphocytes Percent Auto 22.6 % (20-40); Mean Corpuscular HGB Conc 31.2 g/dl (31.0-36.0); Mean Corpuscular Hemoglobin 29.3 pg (27.0-33.0); Mean Corpuscular Volume 93.8 fL (80.0-98.0); Mean Platelet Volume 10.7 fL (9.4-12.4); Monocytes Absolute Auto 0.4 X10*3/uL (0.1-1.2); Monocytes Percent Auto 9.9 % (2-11); Neutrophils Absolute Auto 2.7 x10*3/uL (2.0-8.3); Neutrophils Percent Auto 61.1 % (45-73); Platelet Count 176 X10*3/uL (160-400); Red Blood Count 3.72 X10*6/uL (4.60-5.80); Red Cell Distribution Width 15.1 % (11.0-16.0); White Blood Count 4.4 X10*3/uL (4.8-10.8)
[2023-06-19 07:10] LABS: Anion Gap 13 (12-20); Blood Urea Nitrogen 32 mg/dL (9-16); Calcium 9.9 mg/dL (8.4-10.2); Carbon Dioxide 31 mmol/L (22-29); Chloride 101 mmol/L (96-108); Estimated Glomerular Filt Rate 56; Glucose Random 90 mg/dL (60-115); Iron 85 mcg/dL (45-160); Percent Iron Saturation 29 % (15-50); Potassium 3.8 mmol/L (3.3-5.1); Sodium 141 mmol/L (135-145); Total Iron Binding Capacity 296 mcg/dL (228-428); Unsaturated Iron Binding 211 ug/dL
[2023-06-19 07:30] LABS: Ferritin 257 ng/mL (20-250)
== END 2023-06-19 05:51 | disposition home or self-care (01) ==
LOC: HO.MMNH3L 05:50
PROVIDERS: Visit Provider Family Medicine
DX: I10 Essential (primary) hypertension (principal); J44.9 Chronic obstructive pulmonary disease, unspecified
CPT/HCPCS: 36415; 80048; 82728; 83540; 85025

== ENCOUNTER 2023-07-15 15:20 | Outpatient (REF) | payer MEDICARE, MEDICAID, SELFPAY | END 2023-07-15 15:21 | disposition home or self-care (01) | LOC: HO.MMNH3L 15:20 | PROVIDERS: Visit Provider Family Medicine | DX: R36.9 Urethral discharge, unspecified (principal) | CPT/HCPCS: 87070; 87205 ==

== ENCOUNTER 2023-07-18 07:38 | Outpatient (REF) | payer MEDICARE, MEDICAID, SELFPAY | END 2023-07-18 07:39 | disposition home or self-care (01) | LOC: HO.MMNH3L 07:38 | PROVIDERS: Visit Provider Family Medicine | DX: Z13.89 Encounter for screening for other disorder (principal) | CPT/HCPCS: 81001; 87086; 87088; 87186 ==

== ENCOUNTER 2023-07-23 08:49 | Outpatient (REF) | payer MEDICARE, MEDICAID, SELFPAY ==
--- NOTE | ~2023-07-23 | CT_ITS ---
EXAMINATION: CT chest and CT abdomen with IV contrast. CLINICAL INDICATION: Hemoptysis. Change in bowel habit. COMPARISON: CT abdomen and pelvis 03/01/2022. TECHNIQUE: 5 mm thin axial and reformatted 3 mm thin sagittal and coronal images of chest, abdomen and pelvis were obtained without contrast. DLP 1575. This CT examination was performed using dose optimization technique as appropriate, variously including the following: Automated exposure control Adjustment of MA and/or KV according to patient size(this includes techniques or standardized protocols for targeted exams where dose is matched to indication/reason for exam; extremities or head. Use of iterative reconstruction techniques. FINDINGS: CHEST:. LUNGS: There is total left lung collapse with ipsilateral mediastinal shift. There is dependent atelectasis small consolidation right lung base. Mediastinum: The mediastinal shift to left. There is mild cardiomegaly. No pericardial effusion seen. There is moderate coronary artery calcifications present. No abnormal size mediastinal or hilar lymph nodes seen. There are pacer electrodes in right atrium and right ventricle. Pleura: There is small to moderate left pleural effusion. Small right pleural effusion is noted. Axilla: No abnormal axillary lymph nodes seen. The chest wall is unremarkable. Osseous structures: No aggressive lytic or sclerotic process seen there is mild ventral spondylosis lower dorsal spine. Abdomen and pelvis: Liver, ducts and gallbladder: The liver is mildly enlarged measuring 21 cm in length. It has a normal contour and density. No focal intrahepatic ductal dilatation on lesion seen. Spleen: Unremarkable. Adrenal glands: Unremarkable. Kidneys: Both kidneys are lobulated but normal size. There are bilateral radiopaque renal calculi suspected. No hydronephrosis seen. Lymphovascular structures: The abdominal aorta is atherosclerotic and nondilated. No abnormal size retroperitoneal lymph nodes seen. GI tract: There is scattered stool, diverticuli and gas seen in colon without distention. There is no evidence of cardiac colitis The small bowel loops are normal caliber. Appendix is not visualized. Abdominal wall: Unremarkable. Pelvis: There is diffuse urinary bladder wall thickening without radiopaque calculi. No abnormal size pelvic or inguinal lymph nodes seen. Osseous structures: There are degenerative disc changes and moderate ventral spondylosis throughout lumbar spine. No aggressive lytic or sclerotic process seen. There is some deformity right hip joint secondary to severe osteoarthritis an old fracture right neck. CT/CT abdomen pelvis w IV con IMPRESSION: 1. Total left lung collapse with ipsilateral mediastinal shift. 2. Small to moderate left pleural effusion. Small right pleural effusion with right basilar atelectasis/consolidation. 3. Mild cardiomegaly with pacer electrodes in right atrium and right ventricle. 4. Mild hepatomegaly without focal lesion. 5. Diffuse urinary bladder wall thickening likely cystitis. 6. Diffuse colonic diverticulosis most significant in the sigmoid colon with minimal pericolic fat stranding. 7. Diffuse mural thickening in the bladder suggestive of cystitis.
[2023-07-23] MEDS: iohexoL 350 MG/ML 100 ML INFUS..BTL IV (09:43)
== END 2023-07-23 08:50 | disposition home or self-care (01) ==
LOC: HO.CT 08:49
PROVIDERS: PCP Family Medicine; Visit Provider Internal Medicine
DX: Z13.89 Encounter for screening for other disorder (principal)
CPT/HCPCS: 71260; 74177; Q9967

== ENCOUNTER 2023-07-25 01:42 | Inpatient (IN) | payer MEDICARE, MEDICAID, SELFPAY ==
[2023-07-25] VITALS (31 sets, daily range): BP systolic 93–140; BP diastolic 27–98; PULSE 60–107; RESP 13–23; TEMP 36.1–36.7; O2SAT 93–99; BMI 35.1
--- NOTE | 2023-07-25 | ECG_ITS ---
Test Reason : SOB Blood Pressure : / mmHG Vent. Rate : 107 BPM Atrial Rate : 107 BPM P-R Int : 000 ms QRS Dur : 190 ms QT Int : 434 ms P-R-T Axes : 000 -68 109 degrees QTc Int : 579 ms Ventricular-paced rhythm Abnormal ECG When compared with ECG of 25-JUL-2023 07:43, Vent. rate has increased BY 47 BPM previous study showed A-V pacer Referred By: Carolina Venegas Electronically Signed By:LEBRON RAMÍREZ MD
--- NOTE | ~2023-07-25 | XR_ITS ---
EXAMINATION: XR CHEST CLINICAL INFORMATION: Pneumothorax COMPARISON: 07/25/2023 TECHNIQUE: 2 frontal views view of the chest was obtained. FINDINGS: This study was presented today 07/27/2023 at 12:22 PM for interpretation. ET tube tip projects at the level of the thoracic inlet. Right pigtail chest tube remains in position. Right jugular line projects over the SVC. Nasogastric tube tip projects into left upper quadrant. Left subclavian dual chamber pacemaker. The cardiac silhouette is enlarged and stable. There is no gross pneumothorax. Redemonstration of possible volume loss in the left hemithorax with shift of central mediastinal structures to the left as before. Left basilar consolidation can be attributable to the persistent moderate left pleural effusion and atelectasis/pneumonia. Similar mild right basilar opacity suggestive of atelectasis/pneumonia. No gross right pleural effusion. XR/XR chest 1V IMPRESSION: No gross pneumothorax. Similar appearance of lungs.
--- NOTE | ~2023-07-25 | CT_ITS ---
EXAMINATION: CT CHEST WITH CONTRAST CLINICAL INFORMATION: Question pneumothorax. COMPARISON: 07/23/2023. TECHNIQUE: Multidetector volumetric CT imaging of the chest was obtained after the administration of 100 mL of Omnipaque 350 intravenous contrast without immediate adverse reactions. Axial MIP volume rendering provided. Sagittal and coronal reformatted images were obtained. This CT examination was performed using dose optimization techniques as appropriate, variously including the following: *Automated exposure control *Adjustment of mA and/or kV according to patient size (this includes techniques or standardized protocols for targeted exams where dose is matched to indication/reason for exam; i.e. extremities or head) *Use of iterative reconstruction technique DLP: 830 mGy-cm FINDINGS: Somewhat limited by beam hardening artifact and patient body habitus. LUNGS/PLEURA: Approximately 60% right hydropneumothorax with associated atelectasis. Large amount of left pleural fluid with associated atelectasis. Tip of endotracheal tube within the trachea, approximately 5 cm above the micha. MEDIASTINUM: Tip of right internal jugular central venous line at junction of right innominate vein and superior vena cava. Mild cardiomegaly. Severe coronary arterial calcification. Calcification of the aortic valve. Tips of left subclavian pulse generator device leads in right atrium and right ventricular apex. Small pericardial effusion. 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 CHEST WALL/AXILLA: Extensive subcutaneous emphysema involving the anterior chest and left lower neck. No lymphadenopathy by size criteria. UPPER ABDOMEN: Multiple pancreatic calcifications consistent with chronic pancreatitis. Calcification of the aorta and visceral artery origins. Partially imaged infrarenal IVC filter. Approximately 5 mm or less gallstones. No evidence of gallbladder wall thickening or pericholecystic inflammatory change. Anterior abdominal wall surgical skin radha. Partially imaged upper anterior abdominal surgical drain. Pneumoperitoneum, possibly postsurgical. OSSEOUS STRUCTURES: Degenerative changes of the spine and shoulders. Suspect bamboo spine, raising the possibility of ankylosing spondylitis. Nondisplaced fracture at the anterolateral aspect of the right third rib (image 35, series 3). CT/CT chest w IV con IMPRESSION: Approximately 60% right hydropneumothorax with associated atelectasis. Large amount of left pleural fluid with associated atelectasis. Multiple additional findings, as above.
--- NOTE | ~2023-07-25 | XR_ITS ---
EXAMINATION: XR CHEST CLINICAL INFORMATION: Pneumothorax COMPARISON: Previous chest x-rays most recent from yesterday TECHNIQUE: Frontal view of the chest was obtained. FINDINGS: There is a right pigtail chest tube unchanged in position. Right jugular line projects over SVC. Endotracheal tube tip 7.7 cm above the mich[place]. Nasogastric tube projects over stomach, tip not seen. Left subclavian dual chamber pacemaker. The cardiac silhouette is enlarged but stable. There may be volume loss to the left hemithorax with shift the central mediastinal structures to the left. Loss of the left hemidiaphragm suggestive of a combination of left lower lobe atelectasis/consolidation and left pleural effusion. Subsegmental atelectasis or small infiltrate at the right lung base. No right pleural effusion. No pneumothorax seen. Degenerative changes of the spine. XR/XR chest 1V IMPRESSION: No pneumothorax seen. Other stable findings from yesterday's exam.
--- NOTE | ~2023-07-25 | XR_ITS ---
EXAMINATION: XR CHEST CLINICAL INFORMATION: Centimeters breast COMPARISON: CT chest dated 07/23/2023 TECHNIQUE: Frontal view of the chest was obtained. FINDINGS: Large left pleural effusion with slightly improved aeration in the left upper lobe. Small right pleural effusion. Cardiomegaly pulmonary venous congestion without overt edema. No pneumothorax. No acute osseous abnormalities. XR/XR chest 1V IMPRESSION: * Large left pleural effusion with slightly improved aeration in the left upper lobe. * Small right pleural effusion.
--- NOTE | ~2023-07-25 | XR_ITS ---
EXAMINATION: XR chest 1V CLINICAL INFORMATION: Reason for Exam SOB COMPARISON: Prior chest x-ray same day earlier TECHNIQUE: XR chest 1V Tubes and lines: Dual electrode cardiac device embedded in the left chest wall properly positioned unchanged. Lungs and pleura: Near complete opacification of the left lung except for the left lung apex unchanged probably large pleural effusion, cannot rule out underlying infiltrate and/or atelectasis. Blunting of right costophrenic angle probably a small subpulmonic pleural effusion. Heart and mediastinum: Aortic arch calcifications. The mediastinum is within normal limits.. Bones/soft tissue: Skeletal structures included are normal for patient's age. XR/XR chest 1V IMPRESSION: * No significant change. * Near complete opacification of the left lung except for the left lung apex probably large pleural effusion, cannot rule out underlying infiltrate and/or atelectasis. * Small right subpulmonic pleural effusion.
--- NOTE | ~2023-07-25 | XR_ITS ---
EXAMINATION: XR CHEST CLINICAL INFORMATION: Status post right mid clavicular chest tube placement COMPARISON: Film same day earlier TECHNIQUE: Frontal view of the chest was obtained. FINDINGS: The ET tube is 6.8 cm above the [place]. Catheter overlying the superior vena cava. There is a catheter curled over the right chest. There is felt to be persistent right pneumothorax but this appears smaller than previous. Persistent left sided opacity which is likely fluid and/or adjacent atelectasis or infiltrate. Overlying soft tissue air is seen dissecting into the musculature and fat. Documented on CT. Pacer wires appear unchanged in position XR/XR chest 1V IMPRESSION: Tubes and catheters as described above There is a tube which is curled overlying the right chest. Mildly Decreasing right-sided pneumothorax. Estimated at 10% Persistent left-sided opacity.
--- NOTE | ~2023-07-25 | XR_ITS ---
EXAMINATION: XR CHEST CLINICAL INFORMATION: Status post chest tube placement COMPARISON: Film done same day earlier TECHNIQUE: Frontal view of the chest was obtained. FINDINGS: The tube on the left is curled overlying the heart at the level of the medial mid chest. There appears to be improvement in left-sided opacity with increased aeration in the mid to upper lung zone on the left. Mild right basilar opacity is once again seen. There is no evidence for pneumothorax on the imaging submitted. The pacer wires appear unchanged in position. Mildly prominent cardiac silhouette. XR/XR chest 1V IMPRESSION: Chest tube curled on the left as described. No underlying pneumothorax. Decreasing left sided opacity
--- NOTE | ~2023-07-25 | XR_ITS ---
EXAMINATION: XR CHEST CLINICAL INFORMATION: Placement. COMPARISON: None available. TECHNIQUE: Portable AP view of the chest was obtained. XR/XR chest 1V FINDINGS/IMPRESSION: The study is limited by portable technique, low lung volumes, and overlying hardware. Curvilinear peripheral lucency over the periphery of the right hemithorax raises suspicion for approximately 5-10% right pneumothorax versus artifact secondary to a skin fold. A small right basilar hazy density raises suspicion for small effusion, atelectasis, and/or infiltrate. A previously seen left chest tube is no longer appreciated. Moderate left basilar hazy density suggests pleural fluid, atelectasis, and/or infiltrate. The cardiac silhouette is suboptimally evaluated. Severe coronary arterial calcification. Atherosclerotic aorta. There are degenerative changes of the spine. The tip of an endotracheal tube projects over the trachea at the level of the clavicles. The tip of a right internal jugular presumed central venous line projects over the expected location of the superior vena cava. The tips of left subclavian pulse generator device leads project over the right atrium and right ventricle. Dr. Trevino was directly informed of the suspected right pneumothorax at approximately 6:30 PM on 07/25/2023.
--- OUTSIDE RECORDS SUMMARY | 2023-07-25 02:15 | XMS_ITS | Continuity of Care Document ---
Author Name Unknown Organization [facility] Address [address] [place] [address]- Care Team Providers Care Tuber Operator Name Role Phone Not on Staff, PCP Primary Care Physician Unavail able [place] [facility] [place]20 [facility] [address] [place] [phone] Attending Physician: Raffi Lafleur MD Admitting Physician: Raffi Lafleur MD Referring Physician: Yves JHAVERI, Héctor Gooden Allergies, Adverse Reactions, Alerts Substance Reaction Severity Status morphine 1 Active quinine rash Active cyclobenzaprine 2 Active levoFLOXacin 3 Active sulfa drugs rash Active penicillins 4 sob Active 1hypotension 2ALL MUSCLE RELAXERS rash/immobility 3severe, hypotension 4Tolerated cefepime and ceftriaxone 05/2015 Immunizations Given and Recorded Vaccine Date Status Refusal Reason influenza virus vaccine, inactivated 1 07/07/18 Re corded influenza virus vaccine, inactivated 2 06/23/17 Re corded influenza virus vaccine, inactivated 07/14/16 Brien rded influenza virus vaccine, inactivated 07/20/15 Brien rded influenza virus vaccine, inactivated 06/26/14 Give n influenza virus vaccine, inactivated 07/08/13 Give n influenza virus vaccine, inactivated 3 07/12/12 Gi holly influenza virus vaccine, inactivated 06/18/11 Give n influenza virus vaccine, inactivated 07/05/10 Give n influenza virus vaccine, inactivated 07/11/09 Give n pneumococcal 13-valent vaccine 02/21/15 Given tetanus/diphtheria/pertussis, acel(Tdap) 12/21/13 Given Zostavax (oldterm) 4 08/23/11 Given pneumococcal 23-valent vaccine 5 10/22/10 Given Influenza Virus Vaccine (oldterm) 07/18/08 Given Influenza Virus Vaccine (oldterm) 6 08/04/06 Given Influenza Inactive (IM) (oldterm) 10/18/07 Given tetanus-diphtheria toxoids (Td) 03/30/03 Given Pneumococcal Vaccine (oldterm) 08/12/01 Given 1Location History: [facility] 2Result Comment: [06/24/2017] HIGH DOSE LOT [id number] EXP 01-05-18 [facility] 3Admin Note: Received at the [facility] 4Admin Note: GIVEN AT [facility] PER PATIENT. 5Early/Late Reason: Nursing Judgment 6Admin Note: GIVEN IN [facility] Medications allopurinol 300 mg oral tablet 1, tablet, By Mouth, Daily, # 90 tablet, Refills 3, Tot. Refills 3, Maintenance, 10/09/20 14:30:00 EST, Route to Pharmacy Electronically, [facility], 175, cm, 08/09/20 11:32:00 EDT, Height, 120.2, kg, 03/24/19 19:11:00 EDT, Dry Weight Start Date: 10/09/20 Status: Ordered aspirin 81 mg oral tablet, chewable 1 tablet, By Mouth, Daily in AM, # 90 tablet, 3 Refills, Maintenance, 10/09/20 14:31:00 EST, MEGHAN wong; [facility], 175, cm, 08/09/20 11:32:00 EDT, Height, 120.2, kg, 03/24/19 19:11:00 EDT, Dry Weight Start Date: 10/09/20 Status: Ordered atenolol 50 mg oral tablet 50 mg, 1, tablet, By Mouth, Daily, Refills 0, Maintenance, 03/24/19 13:02:37 EDT Start Date: 03/24/19 Status: Ordered docusate sodium 100 mg oral capsule 1 capsule, By Mouth, 2 times a day, # 180 capsule, 3 Refills, Maintenance, 10/09/20 14:33:[facility], [facility], cm, 08/09/20 11:32:00 EDT, Height, 120.2, kg, 03/24/19 19:11:00 EDT,Dry Weight Start Date: 10/09/20 Status: Ordered escitalopram 20 mg oral tablet 1 tablet, By Mouth, Daily, # 90 tablet, 3 Refills, Maintenance, 10/09/20 15:29:00 EST, [facility], 175, cm, 08/09/20 11:32:00 EDT, Height, 120.2, kg, 03/24/19 19:11:00 EDT, Dry Weight Start Date: 10/09/20 Status: Ordered fenofibrate 160 mg oral tablet 1 tablet, By Mouth, Daily, # 90 tablet, 3 Refills, Maintenance, 10/09/20 15:29:00 EST, [facility], 175, cm, 08/09/20 11:32:00 EDT, Height, 120.2, kg, 03/24/19 19:11:00 EDT, Dry Weight Start Date: 10/09/20 Status: Ordered Flomax 0.4 mg oral capsule 0.4 mg, By Mouth, Daily, # 90 capsule, Refills 3, Tot. Refills 3, Maintenance, 10/09/20 15:29:00 EST, Route to Pharmacy Electronically, [facility], 175, cm, 08/09/20 11:32:00 EDT, Height, 120.2, kg, 03/24/19 19:11:00 EDT, Dry Weight Start Date: 10/09/20 Status: Ordered furosemide 20 mg oral tablet 1, tablet, By Mouth, Daily, # 90 tablet, Refills 3, Tot. Refills 3, Maintenance, 10/09/20 15:29:00 EST, Route to Pharmacy Electronically, [facility], 175, cm, 08/09/20 11:32:00 EDT, Height, 120.2, kg, 03/24/19 19:11:00 EDT, Dry Weight Start Date: 10/09/20 Status: Ordered gabapentin 300 mg oral capsule 300 mg, 1, capsule, By Mouth, 3 times a day, Increase in dose, # 270 capsule, Refills 3, Tot. Refills 3, Soft Stop, 10/09/20 15:29:00 EST, Route to Pharmacy Electronically, [facility], 175, cm, 08/09/20 11:32:00 EDT, Height, 120.2, kg, /... Start Date: 10/09/20 Status: Ordered Gold Murguia See Instructions, apply to affected area as needed, 0 Refills, Maintenance, 03/24/19 13:08:58 EDT Start Date: 03/24/19 Status: Ordered lactobacillus acidophilus oral capsule 1 capsule, By Mouth, Daily, # 90 capsule, 3 Refills, Maintenance, 10/09/20 15:29:00 EST, Capsule, [facility], 1 capsule By Mouth Daily, 175, cm, 08/09/20 11:32:00 EDT, Height, 120.2, kg, 03/24/19 19:11:00 EDT, Dry Weight Start Date: 10/09/20 Status: Ordered left cock-up splint left cock-up splint, See Instructions, # 1 each, Refills 0, Tot. Refills 0, Maintenance, wear at night dx g56.00 Carpal Tunnel Syndrome foreign lifetime, 11/17/19 13:35:00 EST, Compound Start Date: 11/17/19 Status: Ordered LORazepam 1 mg oral tablet 1 tablet = 1 mg, By Mouth, 2 times a day, PRN as needed for anxiety, # 60 tablet, 5 Refills, Acute 01/23/21 8:11:00 EDT, 08/07/20 15:40:00 EDT, Tablet, [facility], 175, cm, 05/03/20 11:22:00EDT, Height, 120.2, kg, 03/24/19 19:11:00 EDT, Dry... Start Date: 08/07/20 Stop Date: 01/23/21 Status: Ordered omeprazole 40 mg oral enteric coated capsule 1 capsule = 40 mg, By Mouth, 2 times a day, # 180 capsule, 3 Refills, Maintenance, 10/09/20 15:29:00 EST, EC Capsule, [facility], 175, cm, 08/09/20 11:32:00 EDT, Height, 120.2, kg, 03/24/19 19:11:00 EDT, Dry Weight Start Date: 10/09/20 Status: Ordered oxyCODONE 5 mg oral tablet 5 mg, 1, tablet, By Mouth, 2 times a day, PRN, PRN for severe pain, # 20 tablet, Refills 0, Tot. Refills 0, Maintenance, as needed for severe pain, 10/30/20 13:22:00 EST, Route to Pharmacy Electronically, [facility], 175, cm, 08/09/20 11:32:0... Start Date: 10/30/20 Status: Ordered right cock-up splint right cock-up splint, See Instructions, # 1 each, Refills 0, Tot. Refills 0, Maintenance, wear at night dx g56.00 Carpal Tunnel Syndrome foreign lifetime, 11/17/19 13:35:00 EST, Compound Start Date: 11/17/19 Status: Ordered traZODone 100 mg oral tablet 1, tablet, By Mouth, Daily at bedtime, # 30 tablet, Refills 11, Tot. Refills 11, Maintenance, 10/09/20 15:29:00 EST, Route to Pharmacy Electronically, [facility], 175, cm, 08/09/20 11:32:00 EDT, Height, 120.2, kg, 03/24/19 19:11:00 EDT, Start Date: 10/09/20 Status: Ordered Ventolin HFA 108 mcg/inh inhalation aerosol with adapter 1 puffs, Inhalation, Every 6 hours, PRN for wheezing, # 8 Gm, 0 Refills, Maintenance, 03/02/19 9:57:24 EDT, Aerosol Start Date: 03/02/19 Status: Ordered Xarelto 20 mg oral tablet 1 tablet = 20 mg, By Mouth, Daily before dinner, # 90 tablet, 3 Refills, Soft Stop, 10/09/20 15:29:00 EST, [facility], 175, cm, 08/09/20 11:32:00 EDT, Height, 120.2, kg, 03/24/19 19:11:00 EDT, Dry Weight Start Date: 10/09/20 Status: Ordered Problem List Condition Effective Dates Status Health Status Inform ant COPD exacerbation(Confirmed) Active Anemia(Confirmed) 10/25/07 Active Anxiety and depression(Confirmed) Active Atrial fibrillation(Confirmed) Active Back pain(Confirmed) Active BPH (benign prostatic hyperplasia)(Confirmed) Active BPH(Confirmed) Active CAD - Coronary artery disease(Confirmed) 1 Active Prostate carcinoma(Confirmed) Active Pacemaker(Confirmed) Active Cataract(Confirmed) 01/18/08 Active CHF exacerbation(Confirmed) Active Atherosclerotic heart disease(Confirmed) Active CTS - Carpal tunnel syndrome left-sided(Confirmed) 05/25/07 Active Depression(Confirmed) Active DVT left leg(Confirmed) 07/06/06 Active Erectile dysfunction(Confirmed) Active Gallstones(Confirmed) 2 Active Gastric ulcer(Confirmed) Active Gout(Confirmed) Active custodial (current) use of anticoagulants(Confirmed) Active Hyperlipidemia(Confirmed) Active HTN (hypertension)(Confirmed) Active Hypertriglyceridemia(Confirmed) Active Respiratory failure with hypoxia(Confirmed) Active Impaired fasting glucose(Confirmed) 10/25/07 Active Insomnia(Confirmed) Active Intertrigo(Confirmed) Active Liver lesion(Confirmed) Active Macular degeneration(Confirmed) 01/18/08 Active Actinic keratoses(Confirmed) Active Neoplasm of uncertain behavior(Confirmed) Active CATRINA - Obstructive sleep apnea(Confirmed) Active Overweight(Confirmed) Active Hand paresthesia, bilateral(Confirmed) Active Perennial allergic rhinitis(Confirmed) Active PND - Postnasal drip(Confirmed) 02/26/06 Active Pneumonia(Confirmed) Active Septic prepatellar bursitis(Confirmed) Active Major depressive disorder, recurrent(Confirmed) Active Spinal stenosis(Confirmed) 3 Active Tobacco abuse(Confirmed) 05/12/07 Active Venous stasis(Confirmed) Active 1PTCA RCA and rotablade w/ stent - Dr. Welch 2possible seen on LS spine xray 3surgery 10/17 Dr. Orellana Social History Social History Type Response Smoking Status Current every day ganesh morel entered on: 11/04/17 Sex
--- OUTSIDE RECORDS SUMMARY | 2023-07-25 02:15 | XMS_ITS | Continuity of Care Document ---
Author Name Unknown Organization [facility] Address Unknown Care Team Providers Care Plunger Scoop Operator Name Role Phone Not on Staff, PCP Primary Care Physician Unavail able Encounter [place] Date(s): 06/12/21 - 10/10/21 [facility] Attending Physician: Yanique Tillman MD Admitting Physician: Yanique Tillman MD Referring Physician: Loan Delarosa Allergies, Adverse Reactions, Alerts Substance Reaction Severity Status morphine 1 Active quinine rash Active cyclobenzaprine 2 Active penicillins 3 sob Active sulfa drugs rash Active levoFLOXacin 4 Active 1hypotension 2ALL MUSCLE RELAXERS rash/immobility 3Tolerated cefepime and ceftriaxone 05/2015 4severe, hypotension Immunizations Given and Recorded Vaccine Date Status [...] 6 08/04/06 Given Influenza Inactive (IM) (oldterm) 07/29/07 Given tetanus-diphtheria toxoids (Td) 03/30/03 Given Pneumococcal Vaccine (oldterm) 08/12/01 Given 1Location History: [facility] 2Result Comment: [06/24/2017] HIGH DOSE LOT [id number] EXP 01-05-18 [facility] 3Admin Note: Received at the [facility] 4Admin Note: GIVEN AT [facility] PER [...] Dry Weight Start Date: 10/09/20 Status: Ordered docusate sodium 100 mg oral capsule 1 capsule, By Mouth, 2 times a day, # 180 capsule, 3 Refills, Maintenance, 10/09/20 14:33:00 EST, [facility], 175, cm, 08/09/20 11:32:00 EDT, Height, 120.2, kg, 03/24/19 19:11:00 EDT,Dry Weight Start Date: 10/09/20 Status: Ordered Eligen B12 1000 mcg oral tablet 2 tablet, By Mouth, Daily, on an empty stomach, Maintenance, 06/02/21 15:38:00 EDT, Tablet, ; Start Date: 06/02/21 Status: Ordered escitalopram 20 mg oral tablet [...] cm, 08/09/20 11:32:00 EDT, Height, 120.2, kg, ... Start Date: 10/09/20 Status: Ordered ketoconazole 2% topical cream 1 application, Topically, 2 times a day, PRN as needed, apply to groin, folds & redness, Maintenance, 06/02/21 15:44:00 EDT, Cream, ; Start Date: 06/02/21 Status: Ordered lactobacillus acidophilus oral capsule 1 [...] as needed for anxiety, # 60 tablet, 0 Refills, Maintenance, 04/19/21 15:51:00 EDT, Tablet, [facility], Partial fill upon patient request if the prescription is for a schedule II opioid drug., 1... Start Date: 04/19/21 Status: Ordered omeprazole 40 mg oral enteric coated capsule 1 capsule = 40 mg, By Mouth, 2 times a day, # 180 capsule, 3 Refills, Maintenance, 10/09/20 15:29:00 EST, EC Capsule, [facility], 175, cm, 08/09/20 11:32:00 EDT, Height, 120.2, kg, 03/24/19 19:11:00 EDT, Dry Weight Start Date: 10/09/20 Status: Ordered right cock-up splint right cock-up splint, See Instructions, # 1 each, Refills 0, Tot. Refills 0, Maintenance, wear at night dx g56.00 Carpal Tunnel Syndrome foreign lifetime, 11/17/19 13:35:00 EST, Compound Start Date: 11/17/19 Status: Ordered Salonpas apply 1 patch, Topically, Daily, apply at 8 pm to mid back 10-6-3.1, Maintenance, 06/02/21 15:36:00EDT, ; Start Date: 06/02/21 Status: Ordered traZODone 100 mg oral tablet 1, tablet, By Mouth, Daily at bedtime, # 30 tablet, Refills 11, Tot. Refills 11, Maintenance, 10/09/20 15:29:00 EST, Route to Pharmacy Electronically, [facility], 175, cm, 08/09/20 11:32:00 EDT, Height, 120.2, kg, 03/24/19 19:11:00 EDT, . Start Date: 10/09/20 Status: Ordered Vitamin D3 2000 intl units oral capsule 1 capsule = 50 mcg, By Mouth, Daily, Maintenance, 06/02/21 15:39:00 EDT, Capsule, ; Start Date: 06/02/21 Status: Ordered Xarelto 20 mg oral tablet [...] 2 Active Gastric ulcer(Confirmed) Active Gout(Confirmed) Active alf (current) use of anticoagulants(Confirmed) Active Hyperlipidemia(Confirmed) Active [...]
--- OUTSIDE RECORDS SUMMARY | 2023-07-25 02:15 | XMS_ITS | Continuity of Care Document ---
Author Name Unknown Organization [facility] Address [address] [place] [address]- Care Team Providers Care Eating Disorder Psychologist Name Role Phone Yves JHAVERI, Héctor Gooden Primary Care Physician Encounter [facility] [place] Date(s): 06/25/20 - 07/25/20 [facility] [address] [place] [address]- [facility] Allergies, Adverse Reactions, Alerts Substance Reaction Severity [...] [facility] 2Result Comment: [06/24/2017] HIGH DOSE LOT [id number] EXP 01-05-18 [facility] 3Admin Note: Received at the [facility] 4Admin Note: GIVEN AT [facility] PER PATIENT. 5Early/Late Reason: Nursing Judgment 6Admin Note: GIVEN IN [facility] Medications allopurinol 300 mg oral tablet 1, tablet, By Mouth, Daily, # 90 Unknown, Refills 1, Tot. Refills 1, Maintenance, 07/23/20 12:11:00EDT, Route to Pharmacy Electronically, [facility], 175, cm, 05/03/20 11:22:00 EDT, Height,120.2, kg, 03/24/19 19:11:00 EDT, Dry Weight Start Date: 07/23/20 Status: Ordered aspirin 81 mg oral tablet, chewable 1 tablet, By Mouth, Daily in AM, # 90 Unknown, 3 Refills, Maintenance, 04/02/20 16:25:00 EDT, [facility], 175, cm, 03/26/20 10:55:00 EDT, Height, 120.2, kg, 03/24/19 19:11:00 EDT, Dry Weight Start Date: 04/02/20 Status: Ordered atenolol 50 mg oral tablet 50 mg, 1, tablet, By Mouth, Daily, Refills 0, Maintenance, 03/24/19 13:02:37 EDT Start Date: 03/24/19 Status: Ordered docusate sodium 100 mg oral capsule 1 capsule, By Mouth, 2 times a day, # 60 capsule, 5 Refills, Maintenance, 05/23/20 13:35:00 EDT, [facility], 175, cm, 05/03/20 11:22:00 EDT, Height, 120.2, kg, 03/24/19 19:11:00 EDT, Dry Weight Start Date: 05/23/20 Status: Ordered escitalopram 20 mg oral tablet 1 tablet, By Mouth, Daily, # 30 Unknown, 5 Refills, Maintenance, 05/24/20 22:17:00 EDT, [facility], 175, cm, 05/03/20 11:22:00 EDT, Height, 120.2, kg, 03/24/19 19:11:00 EDT, Dry Weight Start Date: 05/24/20 Status: Ordered fenofibrate 160 mg oral tablet 1 tablet, By Mouth, Daily, # 30 Unknown, 5 Refills, Maintenance, 07/17/20 7:50:00 EDT, [facility], 175, cm, 05/03/20 11:22:00 EDT, Height, 120.2, kg, 03/24/19 19:11:00 EDT, Dry Weight Start Date: 07/17/20 Status: Ordered Flomax 0.4 mg oral capsule 0.4 mg, By Mouth, Daily, # 90 capsule, Refills 3, Tot. Refills 3, Maintenance, 04/16/20 7:27:00 EDT, Route to Pharmacy Electronically, [facility], 175, cm, 03/26/20 10:55:00 EDT, Height, 120.2, kg, 03/24/19 19:11:00 EDT, Dry Weight Start Date: 04/16/20 Status: Ordered furosemide 20 mg oral tablet 1, tablet, By Mouth, Daily, # 30 Unknown, Refills 5, Tot. Refills 0, Maintenance, 05/24/20 22:18:00EDT, Route to Pharmacy Electronically, [facility], 175, cm, 05/03/20 11:22:00 EDT, Height,120.2, kg, 03/24/19 19:11:00 EDT, Dry Weight Start Date: 05/24/20 Status: Ordered gabapentin 300 mg oral capsule See Instructions, # 180 Unknown, Refills 3 Tot. Refills 3, TAKE ONE CAPSULE BY MOUTH TWICE A DAY, [facility] Start Date: 08/29/19 Status: Ordered Gold Murguia See Instructions, apply to affected area as needed, 0 Refills, Maintenance, 03/24/19 13:08:58 EDT Start Date: 03/24/19 Status: Ordered lactobacillus acidophilus oral capsule 1 capsule, By Mouth, Daily, # 60 capsule, 0 Refills, Maintenance, 05/30/20 8:54:00 EDT, Capsule, [facility], 1 capsule By Mouth Daily, 175, cm, 05/03/20 11:22:00 EDT, Height, 120.2, kg, 03/24/19 19:11:00 EDT, Dry Weight Start Date: 05/30/20 Status: Ordered left cock-up splint left cock-up [...] anxiety, # 60 tablet, 5 Refills, Acute 08/07/20 15:40:00 EDT, 02/24/20 11:36:00 EDT, Tablet, [facility], 175, cm, 11/17/19 12:58:00 EST, Height, 120.2, kg, 03/24/19 19:11:00 EDT, Dry... Start Date: 02/24/20 Stop Date: 08/07/20 Status: Ordered LORazepam 1 mg oral tablet 1 tablet = 1 mg, By Mouth, 2 times a day, PRN as needed for anxiety, # 60 tablet, 5 Refills, Acute 01/23/21 8:11:00 EDT, 08/07/20 15:40:00 EDT, Tablet, [facility], 175, cm, 05/03/20 11:22:00EDT, Height, 120.2, kg, 03/24/19 19:11:00 EDT, Dry... Start Date: 08/07/20 Stop Date: 01/23/21 Status: Ordered magnesium oxide 400 mg oral tablet See Instructions, TAKE ONE TABLET BY MOUTH EVERY DAY AT NOON, # 100 Unknown, 3 Refills, Acute 09/14/20 16:45:00 EST, 05/15/20 16:45:00 EDT, [facility], 175, cm, 05/03/20 11:22:00 EDT, Height, 120.2, kg, 03/24/19 19:11:00 EDT, Dry Weight Start Date: 05/15/20 Stop Date: 09/14/20 Status: Ordered omeprazole 40 mg oral enteric coated capsule 1 capsule = 40 mg, By Mouth, 2 times a day, # 180 capsule, 0 Refills, Maintenance, 07/23/20 12:11:00 EDT, EC Capsule, [facility], 175, cm, 05/03/20 11:22:00 EDT, Height, 120.2, kg, 03/24/19 19:11:00 EDT, Dry Weight Start Date: 07/23/20 Status: Ordered oxyCODONE 5 mg oral tablet 5 mg, 1, tablet, By Mouth, 2 times a day, PRN, PRN for severe pain, # 20 tablet, Refills 0, Tot. Refills 0, Maintenance, as needed for severe pain, 07/09/20 13:51:00 EDT, Route to Pharmacy Electronically, [facility], 175, cm, 05/03/20 11:22:0... Start Date: 07/09/20 Status: Ordered right cock-up splint right cock-up splint, See Instructions, # 1 each, Refills 0, Tot. Refills 0, Maintenance, wear at night dx g56.00 Carpal Tunnel Syndrome foreign lifetime, 11/17/19 13:35:00 EST, Compound Start Date: 11/17/19 Status: Ordered traZODone 100 mg oral tablet 1, tablet, By Mouth, Daily at bedtime, # 30 Unknown, Refills 5, Tot. Refills 5, Maintenance, 05/23/20 13:35:00 EDT, Route to Pharmacy Electronically, [facility], 175, cm, 05/03/20 11:22:00 EDT, Height, 120.2, kg, 03/24/19 19:11:00 EDT, Dry We... Start Date: 05/23/20 Status: Ordered Ventolin HFA 108 mcg/inh inhalation aerosol with adapter 1 puffs, Inhalation, Every 6 hours, PRN for wheezing, # 8 Gm, 0 Refills, Maintenance, 03/02/19 9:57:24 EDT, Aerosol Start Date: 03/02/19 Status: Ordered Xarelto 20 mg oral tablet 1 tablet = 20 mg, By Mouth, Daily before dinner, # 30 tablet, 11 Refills, Soft Stop, 07/17/20 13:47:00 EDT, [facility], 175, cm, 05/03/20 11:22:00 EDT, Height, 120.2, kg, 03/24/19 19:11:00 EDT, Dry Weight Start Date: 07/17/20 Status: Ordered Problem List Condition Effective Dates Status Health Status Inform ant COPD exacerbation(Confirmed) Active Anemia(Confirmed) 10/25/07 Active Anxiety depression(Confirmed) Active Atrial fibrillation(Confirmed) Active Back pain(Confirmed) Active BPH (benign prostatic hyperplasia)(Confirmed) Active BPH(Confirmed) Active CAD - Coronary artery disease(Confirmed) 1 Active Prostate carcinoma(Confirmed) Active Pacemaker(Confirmed) Active Cataract(Confirmed) 01/18/08 Active CHF exacerbation(Confirmed) Active Atherosclerotic heart disease(Confirmed) Active CTS - Carpal tunnel syndrome left-sided(Confirmed) 05/25/07 Active Depression(Confirmed) Active DVT left leg(Confirmed) 07/06/06 Active Erectile dysfunction(Confirmed) Active Gallstones(Confirmed) 2 Active Gastric ulcer(Confirmed) Active Gout(Confirmed) Active penitentiary (current) use of anticoagulants(Confirmed) Active Hyperlipidemia(Confirmed) Active HTN (hypertension)(Confirmed) Active Hypertriglyceridemia(Confirmed) Active Respiratory failure with hypoxia(Confirmed) Active Impaired fasting glucose(Confirmed) 10/25/07 Active Insomnia(Confirmed) Active Intertrigo(Confirmed) Active Liver lesion(Confirmed) Active Macular degeneration(Confirmed) 01/18/08 Active Actinic keratoses(Confirmed) Active Neoplasm of uncertain behavior(Confirmed) Active CATRINA - Obstructive sleep apnea(Confirmed) Active Overweight(Confirmed) Active Perennial allergic rhinitis(Confirmed) Active PND - [...]
--- OUTSIDE RECORDS SUMMARY | 2023-07-25 02:15 | XMS_ITS | Continuity of Care Document ---
Author Name Unknown Organization [facility] ter Address [address] [place] [address]- Care Team Providers Care Yarn Rewinder Name Role Phone Yves JHAVERI, Héctor Gooden Primary Care Physician [facility] Date[facility]): [facility] - 11/22/[address] [address]- [facility] Attending Physician: Omid Mittal MD Allergies, Adverse Reactions, Alerts Substance Reaction Severity [...] Mccall 2Result Comment: [06/24/2017] HIGH DOSE LOT [id number] EXP 01-05-18 TRAV Y 3Admin Note: Received at the [facility] 4Admin Note: GIVEN AT [facility] PER PATIENT. 5Early/Late Reason: Nursing Judgment 6Admin Note: GIVEN IN CLINIC SHAM Medications allopurinol 300 mg oral tablet See Instructions, # 90 Unknown, Refills 1 Tot. Refills 1, TAKE ONE TABLET BY MOUTH EVERY DAY, [facility] # 50 Start Date: 08/10/19 Status: Ordered aspirin 81 mg oral delayed release tablet 81 mg, 1, tablet, By Mouth, Daily, # 30 tablet, Refills 0, Maintenance, 03/24/19 3:16:28 EDT Start Date: 03/24/19 Status: Ordered atenolol 50 mg oral tablet 50 mg, 1, tablet, By Mouth, Daily, Refills 0, Maintenance, 03/24/19 13:02:37 EDT Start Date: 03/24/19 Status: Ordered docusate sodium 100 mg oral capsule 1 capsule, By Mouth, 2 times a day, # 60 capsule, 5 Refills, Maintenance, 11/10/19 5:19:00 EST, [facility] # [facility], 175, cm, 09/13/19 14:21:00 EST, Height, 120.2, kg, 03/24/19 19:11:00 EDT, Dry Weight Start Date: 11/10/19 Status: Ordered escitalopram 20 mg oral tablet 1 tablet = 20 mg, By Mouth, Daily, # 30 tablet, 5 Refills, Maintenance, 07/04/19 16:46:00 EDT, Tablet Start Date: 07/04/19 Status: Ordered fenofibrate 160 mg oral tablet 1 tablet = 160 mg, By Mouth, Daily, # 30 tablet, 6 Refills, Maintenance, 06/01/19 10:21:07 EDT, Tablet Start Date: 06/01/19 Stop Date: 12/28/19 Status: Ordered Flomax 0.4 mg oral capsule 0.4 mg, By Mouth, Daily, # 90 capsule, Refills 3, Tot. Refills 3, Maintenance, 05/11/19 10:36:31 EDT, Route to Pharmacy Electronically, [id number], [facility] # 50 Start Date: 05/11/19 Status: Ordered furosemide 20 mg oral tablet 1, tablet, By Mouth, Daily, # 30 tablet, Refills 5, Tot. Refills 5, Soft Stop, 11/21/19 12:13:00 EST, Route to Pharmacy Electronically, [facility] # 50, 175, cm, 11/17/19 12:58:00 EST, Height, 120.2, kg, 03/24/19 19:11:00 EDT, Dry Weight Start Date: 11/21/19 Status: Ordered gabapentin 300 mg oral capsule See Instructions, # 180 Unknown, Refills 3 Tot. Refills 3, TAKE ONE CAPSULE BY MOUTH TWICE A DAY, [facility] # 50 Start Date: 08/29/19 Status: Ordered Gold Murguia See Instructions, apply to affected area as needed, 0 Refills, Maintenance, 03/24/19 13:08:58 EDT Start Date: 03/24/19 Status: Ordered lactobacillus acidophilus oral capsule 1 capsule, By Mouth, Daily, 0 Refills, Maintenance, 05/25/19 8:19:31 EDT Start Date: 05/25/19 Status: Ordered left cock-up splint left cock-up [...] anxiety, # 60 tablet, 5 Refills, Acute 02/24/20 11:36:00 EDT, 08/26/19 11:35:59 EST, Tablet Start Date: 08/26/19 Stop Date: 02/24/20 Status: Ordered magnesium oxide 400 mg oral tablet 1 tablet = 400 mg, By Mouth, Daily, [address] MARINO, # 30 tablet, 11 Refills, Maintenance, 09/12/16 9:44:12 Start Date: 09/12/16 Stop Date: 09/07/17 Status: Ordered omeprazole 40 mg oral enteric coated capsule 1 capsule = 40 mg, By Mouth, 2 times a day, # 180 capsule, 3 Refills, Maintenance, 05/11/19 10:37:04 EDT, EC Capsule Start Date: 05/11/19 Status: Ordered oxyCODONE 5 mg oral tablet 5 mg, 1, tablet, By Mouth, 2 times a day, # 10 tablet, Refills 0, Tot. Refills 0, Acute 12/09/19 11:15:00 EST, 11/18/19 11:14:00 EST, Route to Pharmacy Electronically, [facility] # [facility], Partial fill upon patient request, 175, cm, 11/17/19 12:58:00... Start Date: 11/18/19 Stop Date: 12/09/19 Status: Ordered right cock-up splint right cock-up splint, See Instructions, # 1 each, Refills 0, Tot. Refills 0, Maintenance, wear at night dx g56.00 Carpal Tunnel Syndrome foreign lifetime, 11/17/19 13:35:00 EST, Compound Start Date: 11/17/19 Status: Ordered traZODone 100 mg oral tablet 1, tablet, By Mouth, Daily at bedtime, OFFICE VISIT NEEDED FOR FURTHER REFILLS., # 30 Unknown, Refills 5, Tot. Refills 0, Maintenance, 11/21/19 12:14:00 EST, Route to Pharmacy Electronically, [facility] # [facility], 175, cm, 11/17/19 12:58:00 EST, Height... Start Date: 11/21/19 Status: Ordered Ventolin HFA 108 mcg/inh inhalation aerosol with adapter 1 puffs, Inhalation, Every 6 hours, PRN for wheezing, # 8 Gm, 0 Refills, Maintenance, 03/02/19 9:57:24 EDT, Aerosol Start Date: 03/02/19 Status: Ordered Xarelto 20 mg oral tablet See Instructions, # 30 Unknown, Refills 11 Tot. Refills 11, TAKE ONE TABLET BY MOUTH EVERY EVENING,[facility] # [facility] Start Date: 08/10/19 Status: Ordered Problem List Condition Effective Dates Status Health Status Inform ant COPD exacerbation(Confirmed) Active Anemia(Confirmed) 10/25/07 Active Anxiety depression(Confirmed) Active Atrial fibrillation(Confirmed) Active Back pain(Confirmed) Active BPH (benign prostatic hyperplasia)(Confirmed) Active BPH(Confirmed) Active CAD - Coronary artery disease(Confirmed) 1 Active Pacemaker(Confirmed) Active Cataract(Confirmed) 01/18/08 Active CHF exacerbation(Confirmed) Active Atherosclerotic heart disease(Confirmed) Active CTS - Carpal tunnel syndrome left-sided(Confirmed) 05/25/07 Active Depression(Confirmed) Active DVT left leg(Confirmed) 07/06/06 Active Erectile dysfunction(Confirmed) Active Gallstones(Confirmed) 2 Active Gastric ulcer(Confirmed) Active Gout(Confirmed) Active USP (current) use of anticoagulants(Confirmed) Active Hyperlipidemia(Confirmed) Active HTN (hypertension)(Confirmed) Active Hypertriglyceridemia(Confirmed) Active Respiratory failure with hypoxia(Confirmed) Active Impaired fasting glucose(Confirmed) 10/25/07 Active Insomnia(Confirmed) Active Liver lesion(Confirmed) Active Macular degeneration(Confirmed) 01/18/08 Active CATRINA - Obstructive sleep apnea(Confirmed) Active [...]
--- OUTSIDE RECORDS SUMMARY | 2023-07-25 02:15 | XMS_ITS | Continuity of Care Document ---
Author Name Unknown Organization [facility] Address [address] [place] [address]- Care Team Providers Care Lab Rep Name Role Phone Not on Staff, PCP Primary Care Physician Unavail able [facility] Date[facility]s): 11/[facility]/20 - 12/05/20 [facility] [address] [place] [address]- Allergies, Adverse Reactions, Alerts Substance Reaction Severity [...] Mccall 2Result Comment: [06/24/2017] HIGH DOSE LOT [id number] EXP 01-05-18 BIG Y 3Admin Note: Received at the [facility] 4Admin Note: GIVEN AT [facility] [...] 90 tablet, 3 Refills, Maintenance, 10/09/20 15:29:00 [facility], 175, cm, 08/09/20 11:32:00 [...] kg, ... Start Date: 10/09/20 Status: Ordered Gold Murguia [...] 01/23/21 8:11:00 EDT, 08/07/20 15:40:00 EDT, Tablet, [facility] # 50, 175, cm, 05/03/20 11:22:00EDT, [...] 10/30/20 13:22:00 EST, Route to Pharmacy Electronically, [facility] # [facility], 175, cm, 08/09/20 11:32:0... [...] EDT, . 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
--- OUTSIDE RECORDS SUMMARY | 2023-07-25 02:15 | XMS_ITS | Continuity of Care Document ---
Author Name Unknown Organization [facility] Rajendra Mccall Cedric lt Address [address] [place] [address]- Care Team Providers Care Fixture Repairer Fabricator Name Role Phone Not on Staff, PCP Primary Care Physician Unavail able [facility] Date(s): 11/20/20 - 12/20/20 [facility] [address] [place] [address]- Allergies, Adverse Reactions, Alerts Substance Reaction Severity Status morphine 1 Active quinine rash Active penicillins 2 sob Active sulfa drugs rash Active levoFLOXacin 3 Active cyclobenzaprine 4 Active 1hypotension 2Tolerated cefepime and ceftriaxone 05/2015 3severe, hypotension 4ALL MUSCLE RELAXERS rash/immobility Immunizations Given and Recorded Vaccine Date Status [...] Mccall 2Result Comment: [06/24/2017] HIGH DOSE LOT [id number] EXP 01-05-18 BIG Y 3Admin Note: Received at the [facility] 4Admin Note: GIVEN AT [facility] PER [...] 01/23/21 8:11:00 EDT, 08/07/20 15:40:00 EDT, Tablet, [facility] # 50, 175, cm, 05/03/20 11:22:00EDT, [...] 10/30/20 13:22:00 EST, Route to Pharmacy Electronically, [facility] # 50, 175, cm, 08/09/20 11:32:0... 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
--- OUTSIDE RECORDS SUMMARY | 2023-07-25 02:15 | XMS_ITS | Continuity of Care Document ---
Author Name Unknown Organization [facility] Cedric lt Address [address] [place] [address]- Care Team Providers Care Banquet Prep Cook Name Role Phone Yves JHAVERI, Héctor Gooden Primary Care Physician [phone] [facility] Date(s): 11/17/19 - 11/24/19 [facility] Adult [address] [place] [address]- [place] Encounter Diagnosis Carpal tunnel syndrome, right(Discharge Diagnosis) - 11/17/19 Attending Physician: Not on Staff, Attending MD Allergies, Adverse Reactions, Alerts Substance Reaction [...] Mccall 2Result Comment: [06/24/2017] HIGH DOSE LOT [id number] EXP 01-05-18 BIG Y 3Admin Note: Received at the [facility] 4Admin Note: GIVEN AT [facility] PER PATIENT. 5Early/Late Reason: Nursing Judgment 6Admin Note: GIVEN IN CLINIC SHAM Medications allopurinol 300 mg oral tablet See Instructions, # 90 Unknown, Refills 1 Tot. Refills 1, TAKE ONE TABLET BY MOUTH EVERY DAY, [facility] # 50 Start Date: 08/10/19 Status: Ordered [...] capsule, 5 Refills, Maintenance, 11/10/19 5:19:00 EST, [facility] # 50, 175, cm, [...] 05/11/19 10:36:31 EDT, Route to Pharmacy Electronically, [id number], [facility] # 50 Start Date: 05/11/19 Status: Ordered furosemide 20 mg oral tablet 1, tablet, By Mouth, Daily, # 30 tablet, Refills 5, Tot. Refills 5, Soft Stop, 11/21/19 12:13:00 EST, Route to Pharmacy Electronically, [facility] # 50, 175, cm, 11/17/19 12:58:00 EST, Height, 120.2, kg, 03/24/19 19:11:00 EDT, Dry Weight Start Date: 11/21/19 Status: Ordered gabapentin 300 mg oral capsule See Instructions, # 180 Unknown, Refills 3 Tot. Refills 3, TAKE ONE CAPSULE BY MOUTH TWICE A DAY, [facility] # 50 Start Date: 08/29/19 [...] 11/18/19 11:14:00 EST, Route to Pharmacy Electronically, [facility] # [facility], Partial fill upon patient [...] 11/21/19 12:14:00 EST, Route to Pharmacy Electronically, [facility] # [facility], 175, cm, 11/17/19 12:58:00 [...] 11, TAKE ONE TABLET BY MOUTH EVERY EVENING,[facility] # [facility] Start Date: 10/30/19 Status: Ordered Problem List Condition Effective Dates [...] 2 Active Gastric ulcer(Confirmed) Active Gout(Confirmed) Active assisted (current) use of anticoagulants(Confirmed) Active Hyperlipidemia(Confirmed) Active [...] LS spine xray 3surgery 10/17 Dr. Orellana Diagnosis Diagnosis Type Effective Dates Health Status Cl inical Service Informant Carpal tunnel syndrome, right Discharge Diagnosis 11/17/19 Vital Signs Most recent to oldest [Reference Range]: 1 Height 175 cm (11/17/19 12:58 PM) Oxygen Saturation [94-100 %] 95 % (11/17/19 12:58 PM) Pulse Rate [55-90 bpm] 60 bpm (11/17/19 12:58 PM) Blood Pressure [90-138/55-84 mm Hg] 130/ 70mm Hg (11/17/19 12:58 PM) Temperature [96.8-100.4 DegF] 97.6 DegF (11/17/19 12:58 PM) Mode of Delivery (Oxygen) Room air (11/17/19 12:58 PM) Blood pressure sites Arm, left (11/17/19 12:58 PM) Temperature Route Oral (11/17/19 12:58 PM) Social History Social History Type Response Smoking Status Current every day ganesh morel entered on: 11/04/17 Sex
--- OUTSIDE RECORDS SUMMARY | 2023-07-25 02:15 | XMS_ITS | Continuity of Care Document ---
Author Name Unknown Organization [facility] Address [address] [place] [address]- Care Team Providers Care Tile Presser Name Role Phone Not on Staff, PCP Primary Care Physician Unavail able [facility] Date[facility]s): 11/19/20 - 12/19/20 [facility] [address] [place] [address]- Attending Physician: Clarissa Moore Admitting Physician: AdmClarissa turner Referring Physician: [id number] Allergies, Adverse Reactions, Alerts Substance Reaction Severity [...] Mccall 2Result Comment: [06/24/2017] HIGH DOSE LOT [id number] EXP 01-05-18 BIG Y 3Admin Note: Received at the [facility] 4Admin Note: GIVEN AT [facility] PER [...] 90 tablet, 3 Refills, Maintenance, 10/09/20 15:29:00 [facility], 175, cm, 08/09/20 11:32:00 EDT, [...] cm, 08/09/20 11:32:00 EDT, Height, 120.2, kg, 06/... Start Date: 10/09/20 Status: Ordered Gold Murguia [...] 01/23/21 8:11:00 EDT, 08/07/20 15:40:00 EDT, Tablet, [facility] # 50, 175, cm, 05/03/20 11:22:00EDT, [...] 10/30/20 13:22:00 EST, Route to Pharmacy Electronically, [facility] # [facility], 175, cm, 08/09/20 11:32:0... 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
--- OUTSIDE RECORDS SUMMARY | 2023-07-25 02:15 | XMS_ITS | Continuity of Care Document ---
Author Name Unknown Organization [facility] Cedric lt Address [address] [place] [address]- Care Team Providers Care Tar Man Name Role Phone Yves JHAVERI, Héctor Gooden Primary Care Physician [phone] [facility] Date[facility]s): 09/12/20 - 10/12/20 [facility] [address] [place] [address]- Attending Physician: Admtr, Ar8 Allergies, Adverse Reactions, Alerts Substance Reaction Severity Status morphine 1 Active quinine rash Active cyclobenzaprine 2 Active penicillins 3 sob Active levoFLOXacin 4 Active sulfa drugs rash Active 1hypotension 2ALL MUSCLE RELAXERS rash/immobility 3Tolerated [...] Mccall 2Result Comment: [06/24/2017] HIGH DOSE LOT [id number] EXP 01-05-18 BIG Y 3Admin Note: Received at the [facility] 4Admin Note: GIVEN AT [facility] PER [...] 3 Refills, Maintenance, 10/09/20 14:31:00 EST, [facility], 175, cm, 08/09/20 11:32:00 EDT, [...] 180 capsule, 3 Refills, Maintenance, 10/09/20 14:33:00 [facility], 175, cm, 08/09/20 [...] Date: 08/07/20 Stop Date: 01/23/21 Status: Ordered LORazepam 1 mg oral tablet 1 tablet = 1 mg, By Mouth, 2 times a day, PRN as needed for anxiety, # 60 tablet, 3 Refills, Acute 11/09/20 14:35:00 EST, 10/09/20 15:29:00 EST, Tablet, [facility], 175, cm, 08/09/20 11:32:00 EDT, Height, 120.2, kg, 03/24/19 19:11:00 EDT,... Start Date: 10/09/20 Stop Date: 11/09/20 Status: Ordered omeprazole 40 mg oral enteric [...] 0, Maintenance, as needed for severe pain, 09/05/20 16:21:00 EST, Route to Pharmacy Electronically, [email or web address] # [facility], 175, cm, 08/09/20 11:32:0... 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
--- OUTSIDE RECORDS SUMMARY | 2023-07-25 02:15 | XMS_ITS | Continuity of Care Document ---
Author Name Unknown Organization [facility] ter Address [address] [place] [address]- Care Team Providers Care Stock Blender Name Role Phone Not on Staff, PCP Primary Care Physician Unavail able [facility] Date(s): 06/01/21 - 06/02/[address] [address]- Encounter Diagnosis Right shoulder pain(Final) - 06/02/21 Discharge Disposition: A-Transfer SNF Attending Physician: Evette Matamoros DO Admitting Physician: Evette Matamoros DO Referring Physician: Not on Staff, Referring MD Allergies, Adverse Reactions, Alerts Substance Reaction [...] Mccall 2Result Comment: [06/24/2017] HIGH DOSE LOT [id number] EXP 01-05-18 BIG Y 3Admin Note: Received at the [facility] 4Admin Note: GIVEN AT [facility] [...] oxyCODONE 5 mg oral tablet 5 mg, Tablet, By Mouth, Once, JASIEL, 06/02/21 5:02:00 EDT, Stop date 06/02/21 5:02:00 EDT Start Date: 06/02/21 Stop Date: 06/02/21 Status: Completed right cock-up splint right cock-up splint, See [...] 2 Active Gastric ulcer(Confirmed) Active Gout(Confirmed) Active group home (current) use of anticoagulants(Confirmed) Active Hyperlipidemia(Confirmed) Active [...] LS spine xray 3surgery 10/17 Dr. Orellana Results Radiology Reports * Exam Date Time Procedure Performing Provider Status 06/02/21 6:13 AM Shoulder Min 2 Views Right Liborio Irma; Auth (Verified) Notes: (Shoulder Min 2 Views Right) Reason For Exam: with Pain;Trauma RESULT: Shoulder Min 2 Views Right Shoulder Min 2 Views Right, 3 views Hx of Present Illness: Right shoulder pain x 5 days; no known traumatic injury. Patient became SOB upon arrival in ED.; Reason: Trauma; with Pain; Clinical Question(s): Fracture COMPARISON: None. FINDINGS: No fracture or dislocation on the provided oblique AP and Y views.. Mild degenerative change at the glenohumeral joint. There is also degenerative change at the acromioclavicular joint. No calcification of the rotator cuff. IMPRESSION: Suboptimal exam due to patient positioning. No fracture or dislocation. WSN: [id number] Ordering Physician: Evette Matamoros Dictated By: Veronica Shook MD Dictated Date/Time: 06/02/21 8:12 am Reviewed By: Veronica Shook MD Signed By: Veronica Shook MD Signed Date/Time: 06/02/21 8:12 am Transcribed By: CHELLY Transcribed Date/Time: 06/02/21 8:10 am * Exam Date Time Procedure Performing Provider Status 06/01/21 5:40 PM Chest 2 Views Frontal and Lat Inocencia Slaughter; Auth (Verified) Notes: (Chest 2 Views Frontal and Lat) Reason For Exam: Chest Pain;Other: RESULT: Chest 2 Views Frontal and Lat Chest 2 Views Frontal and Lat Hx of Present Illness: Right shoulder pain x 5 days; no known traumatic injury. Patient became SOB upon arrival in ED.; Reason: Other:; Chest Pain; Clinical Question(s): Other: COMPARISON: 02/27/2018 CT chest. FINDINGS: LINES AND TUBES: Dual-lead pacer. LUNGS AND PLEURA: Clear lungs. Normal pulmonary vascularity. No pleural effusion. No pneumothorax. HEART, MEDIASTINUM AND RIRI: Moderate prominence of the cardiac silhouette, unchanged. Normal upper mediastinal and hilar contour. Calcifications along the aortic arch. BONES AND SOFT TISSUES: No acute abnormality. IMPRESSION: No acute abnormality. WSN: [id number] Ordering Physician: Coleen Shannon MD Dictated By: Carolina Montes MD Dictated Date/Time: 06/01/21 5:50 pm Reviewed By: Carolina Montes MD Signed By: Carolina Montes MD Signed Date/Time: 06/01/21 5:50 pm Transcribed By: CHELLY Transcribed Date/Time: 06/01/21 5:48 pm Vital Signs Most recent to oldest [Reference Range]: 1 2 3 Oxygen Saturation [94-100 %] 97 % (06/02/21 4:54 AM) 94 % (06/01/21 9:50 PM) 96 % (06/01/21 4:00 PM) Pulse Rate [55-90 bpm] 74 bpm (06/02/21 4:54 AM) 112 bpm *H* (06/01/21 9:50 PM) 63 bpm (06/01/21 4:00 PM) Blood Pressure [90-138/55-84 mm Hg] 141/72mm Hg *H* (06/02/21 4:54 AM) 148/98mm Hg *H* (06/01/21 9:50 PM) 143/75mm Hg *H* (06/01/21 4:00 PM) Respiratory Rate [16-30 br/min] 17 br/min (06/02/21 5:06 AM) 22 br/min (06/02/21 4:54 AM) 16 br/min (06/01/21 9:50 PM) Temperature [96.8-100.4 DegF] 97.6 DegF (06/02/21 4:54 AM) 97.8 DegF (06/01/21 9:50 PM) 98.5 DegF (06/01/21 4:00 PM) Mode of Delivery (Oxygen) Room air (06/02/21 4:54 AM) Room air (06/01/21 9:50 PM) Room air (06/01/21 4:00 PM) Blood pressure sites Arm, left (06/02/21 4:54 AM) Arm, left (06/01/21 9:50 PM) Arm, left (06/01/21 4:00 PM) Temperature Route Oral (06/02/21 4:54 AM) Oral (06/01/21 9:50 PM) Oral (06/01/21 4:00 PM) Social History Social History Type Response Smoking Status Current every day ganesh morel entered on: 11/04/17 Sex
--- OUTSIDE RECORDS SUMMARY | 2023-07-25 02:15 | XMS_ITS | Continuity of Care Document ---
Author Name Unknown Organization [facility] Cedric lt Address [address] [place] [address]- Care Team Providers Care Flower Picker Name Role Phone Yves JHAVERI, Héctor Gooden Primary Care Physician Encounter [facility] Date(s): 10/09/20 - 11/08/20 [facility] [address] [place] [address]- Allergies, Adverse Reactions, Alerts Substance Reaction Severity [...] Vaccine (oldterm) 08/12/01 Given 1Location History: Jeffrey Duarte Rajendra Mccall 2Result Comment: [06/24/2017] HIGH DOSE LOT [id number] EXP 01-05-18 BIG Y 3Admin Note: Received at the [facility] 4Admin Note: GIVEN AT [facility] [...] 10/30/20 13:22:00 EST, Route to Pharmacy Electronically, [facility], 175, cm, 08/09/20 11:32:0... [...]
--- OUTSIDE RECORDS SUMMARY | 2023-07-25 02:15 | XMS_ITS | Continuity of Care Document ---
Author Name Unknown Organization [facility] Cedric lt Address [address] [place] [address]- Care Team Providers Care Weaver Wire Loom Name Role Phone Yves JHAVERI, Héctor Gooden Primary Care Physician [phone] Encounter [facility] Date(s): 05/29/20 - 06/28/20 [facility] Adult [address] [place] [address]- [facility] Allergies, Adverse Reactions, Alerts Substance [...] Mccall 2Result Comment: [06/24/2017] HIGH DOSE LOT [id number] EXP 01-05-18 TRAV Y 3Admin Note: Received at the [facility] 4Admin Note: GIVEN AT [facility]ENTER [facility] PER PATIENT. 5Early/Late Reason: Nursing Judgment 6Admin Note: GIVEN IN CLINIC SHAM Medications allopurinol 300 mg oral tablet 1, tablet, By Mouth, Daily, # 90 Unknown, Refills 1, Tot. Refills 1, Maintenance, 02/06/20 15:38:00EDT, Route to Pharmacy Electronically, [facility] # [facility], 175, cm, 11/17/19 12:58:00 EST, Height,120.2, kg, 03/24/19 19:11:00 EDT, Dry Weight Start Date: 02/06/20 Status: Ordered aspirin 81 mg oral tablet, chewable 1 tablet, By Mouth, Daily in AM, # 90 Unknown, 3 Refills, Maintenance, 04/02/20 16:25:00 EDT, [facility], 175, cm, 03/26/20 10:55:00 EDT, [...] capsule, 5 Refills, Maintenance, 05/23/20 13:35:00 EDT, [facility] # [facility], 175, cm, 05/03/20 11:22:00 EDT, Height, 120.2, kg, 03/24/19 19:11:00 EDT, Dry Weight Start Date: 05/23/20 Status: Ordered escitalopram 20 mg oral tablet 1 tablet, By Mouth, Daily, # 30 Unknown, 5 Refills, Maintenance, 05/24/20 22:17:00 EDT, [facility] # [facility], 175, cm, 05/03/20 11:22:00 EDT, Height, 120.2, kg, 03/24/19 19:11:00 EDT, Dry Weight Start Date: 05/24/20 Status: Ordered fenofibrate 160 mg oral tablet 1 tablet, By Mouth, Daily, # 30 Unknown, 6 Refills, Maintenance, 01/03/20 11:54:00 EDT, [facility] # [facility], 175, cm, 11/17/19 12:58:00 EST, Height, 120.2, kg, 03/24/19 19:11:00 EDT, Dry Weight Start Date: 01/03/20 Status: Ordered Flomax 0.4 mg oral capsule 0.4 mg, By Mouth, Daily, # 90 capsule, Refills 3, Tot. Refills 3, Maintenance, 04/16/20 7:27:00 EDT, Route to Pharmacy Electronically, [facility] # [facility], 175, cm, 03/26/20 10:55:00 EDT, Height, 120.2, kg, 03/24/19 19:11:00 EDT, Dry Weight Start Date: 04/16/20 Status: Ordered furosemide 20 mg oral tablet 1, tablet, By Mouth, Daily, # 30 Unknown, Refills 5, Tot. Refills 0, Maintenance, 05/24/20 22:18:00EDT, Route to Pharmacy Electronically, [facility] # [facility], 175, cm, 05/03/20 11:22:00 EDT, Height,120.2, kg, 03/24/19 19:11:00 EDT, Dry Weight Start Date: 05/24/20 Status: Ordered gabapentin 300 mg oral capsule See Instructions, # 180 Unknown, Refills 3 Tot. Refills 3, TAKE ONE CAPSULE BY MOUTH TWICE A DAY, [facility] # [facility] Start Date: 08/29/19 Status: Ordered Gold Murguia See Instructions, apply to affected area as needed, 0 Refills, Maintenance, 03/24/19 13:08:58 EDT Start Date: 03/24/19 Status: Ordered lactobacillus acidophilus oral capsule 1 capsule, By Mouth, Daily, # 60 capsule, 0 Refills, Maintenance, 05/30/20 8:54:00 EDT, Capsule, [facility] # [facility], 1 capsule By Mouth [...] 08/07/20 15:40:00 EDT, 02/24/20 11:36:00 EDT, Tablet, [facility] # [facility], 175, cm, 11/17/19 12:58:00 EST, Height, 120.2, kg, 03/24/19 19:11:00 EDT, Dry... Start Date: 02/24/20 Stop Date: 08/07/20 Status: Ordered magnesium oxide 400 mg oral tablet See Instructions, TAKE ONE TABLET BY MOUTH EVERY DAY AT NOON, # 100 Unknown, 3 Refills, Acute 09/14/20 16:45:00 EST, 05/15/20 16:45:00 EDT, [facility] # 50, 175, cm, 05/03/20 11:22:00 EDT, Height, 120.2, kg, 03/24/19 19:11:00 EDT, Dry Weight Start Date: 05/15/20 Stop Date: 09/14/20 Status: Ordered omeprazole 40 mg oral enteric coated capsule 1 capsule = 40 mg, By Mouth, 2 times a day, # 180 capsule, 0 Refills, Maintenance, 04/30/20 15:34:00 EDT, EC Capsule, [facility] # 50, 175, cm, 03/26/20 10:55:00 EDT, Height, 120.2, kg, 03/24/19 19:11:00 EDT, Dry Weight Start Date: 04/30/20 Status: Ordered oxyCODONE 5 mg oral tablet 5 mg, 1, tablet, By Mouth, 2 times a day, PRN, PRN for severe pain, # 20 tablet, Refills 0, Tot. Refills 0, Maintenance, as needed for severe pain, 06/07/20 12:23:00 EDT, Route to Pharmacy Electronically, [facility] # [facility], 175, cm, 05/03/20 11:22:0... 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
--- OUTSIDE RECORDS SUMMARY | 2023-07-25 02:16 | XMS_ITS | Continuity of Care Document ---
Author Name Unknown Organization [facility] Address [address] [place] [id number]- Care Team Providers Care Terrazzo Tile Setter Name Role Phone Yves JHAVERI, Héctor Gooden Primary Care Physician [place] [facility] [place]12[place] 11[place]21/20 [facility] [address] [place] [id number] Attending Physician: Raffi Lafleur MD Admitting Physician: Raffi Lafleur MD Referring Physician: Héctor Marinelli MD Allergies, Adverse Reactions, Alerts Substance Reaction Severity Status morphine 1 Active quinine rash Active penicillins 2 sob Active sulfa drugs rash Active cyclobenzaprine 3 Active levoFLOXacin 4 Active 1hypotension 2Tolerated cefepime and ceftriaxone 05/2015 3ALL MUSCLE RELAXERS rash/immobility 4severe, hypotension Immunizations Given and Recorded Vaccine [...] 08/12/01 Given 1Location History: [facility] Rajendra Amity 2Result Comment: [06/24/2017] HIGH DOSE LOT [id number] EXP 01-05-18 [facility] 3Admin Note: Received at the [facility] 4Admin Note: GIVEN AT CENTER [facility] PER [...] 10/30/20 13:22:00 EST, Route to Pharmacy Electronically, [facility] # [facility], 175, cm, 08/09/20 11:32:0... 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
--- OUTSIDE RECORDS SUMMARY | 2023-07-25 02:16 | XMS_ITS | Continuity of Care Document ---
Author Name Unknown Organization [facility] Cedric lt Address [address] [place] [address]- Care Team Providers Care Dike Supervisor Name Role Phone Héctor Marinelli MD Primary Care Physician [phone] Encounter [facility] [place] Date(s): 06/14/20 - 07/25/20 [facility] Adult [address] [place] [address]- [facility] Attending Physician: Héctor Marinelli MD Allergies, Adverse Reactions, [...] Mccall 2Result Comment: [06/24/2017] HIGH DOSE LOT [id number] EXP 01-05-18 TRAV Duarte 3Admin Note: Received at the [facility] 4Admin Note: GIVEN AT [facility] PER PATIENT. 5Early/Late Reason: Nursing Judgment 6Admin Note: GIVEN IN CLINIC [facility] Medications allopurinol 300 mg oral tablet 1, tablet, By Mouth, Daily, # 90 Unknown, Refills 1, Tot. Refills 1, Maintenance, 07/23/20 12:11:00EDT, Route to Pharmacy Electronically, [facility] # [facility], 175, cm, 05/03/20 11:22:00 EDT, Height,120.2, kg, 03/24/19 19:11:00 EDT, Dry Weight Start Date: 07/23/20 Status: Ordered aspirin 81 mg oral tablet, chewable 1 tablet, By Mouth, Daily in AM, # 90 Unknown, 3 Refills, Maintenance, 04/02/20 16:25:00 EDT, [facility], 175, cm, 03/26/20 10:55:00 EDT, [...] capsule, 5 Refills, Maintenance, 05/23/20 13:35:00 EDT, [facility] # 50, 175, cm, 05/03/20 11:22:00 EDT, Height, 120.2, kg, 03/24/19 19:11:00 EDT, Dry Weight Start Date: 05/23/20 Status: Ordered escitalopram 20 mg oral tablet 1 tablet, By Mouth, Daily, # 30 Unknown, 5 Refills, Maintenance, 05/24/20 22:17:00 EDT, [facility] # 50, 175, cm, 05/03/20 11:22:00 EDT, Height, 120.2, kg, 03/24/19 19:11:00 EDT, Dry Weight Start Date: 05/24/20 Status: Ordered fenofibrate 160 mg oral tablet 1 tablet, By Mouth, Daily, # 30 Unknown, 5 Refills, Maintenance, 07/17/20 7:50:00 EDT, [facility] # 50, 175, cm, 05/03/20 11:22:00 EDT, Height, 120.2, kg, 03/24/19 19:11:00 EDT, Dry Weight Start Date: 07/17/20 Status: Ordered Flomax 0.4 mg oral capsule 0.4 mg, By Mouth, Daily, # 90 capsule, Refills 3, Tot. Refills 3, Maintenance, 04/16/20 7:27:00 EDT, Route to Pharmacy Electronically, [facility] # [facility], 175, cm, 03/26/20 10:55:00 EDT, Height, 120.2, kg, 03/24/19 19:11:00 EDT, Dry Weight Start Date: 04/16/20 Status: Ordered furosemide 20 mg oral tablet 1, tablet, By Mouth, Daily, # 30 Unknown, Refills 5, Tot. Refills 0, Maintenance, 05/24/20 22:18:00EDT, Route to Pharmacy Electronically, [facility] # [facility], 175, cm, 05/03/20 11:22:00 EDT, Height,120.2, kg, 03/24/19 19:11:00 EDT, Dry Weight Start Date: 05/24/20 Status: Ordered gabapentin 300 mg oral capsule See Instructions, # 180 Unknown, Refills 3 Tot. Refills 3, TAKE ONE CAPSULE BY MOUTH TWICE A DAY, [facility] # 50 Start Date: 08/29/19 Status: Ordered Gold Murguia See Instructions, apply to affected area as needed, 0 Refills, Maintenance, 03/24/19 13:08:58 EDT Start Date: 03/24/19 Status: Ordered lactobacillus acidophilus oral capsule 1 capsule, By Mouth, Daily, # 60 capsule, 0 Refills, Maintenance, 05/30/20 8:54:00 EDT, Capsule, [facility] # 50, 1 capsule By [...] 08/07/20 15:40:00 EDT, 02/24/20 11:36:00 EDT, Tablet, [facility] # [facility], 175, cm, 11/17/19 12:58:00 EST, Height, 120.2, kg, 03/24/19 19:11:00 EDT, Dry... Start Date: 02/24/20 Stop Date: 08/07/20 Status: Ordered LORazepam 1 mg oral tablet 1 tablet = 1 mg, By Mouth, 2 times a day, PRN as needed for anxiety, # 60 tablet, 5 Refills, Acute 01/23/21 8:11:00 EDT, 08/07/20 15:40:00 EDT, Tablet, [facility] # 50, 175, cm, 05/03/20 11:22:00EDT, Height, 120.2, kg, 03/24/19 19:11:00 EDT, Dry... Start Date: 08/07/20 Stop Date: 01/23/21 Status: Ordered magnesium oxide 400 mg oral tablet See Instructions, TAKE ONE TABLET BY MOUTH EVERY DAY AT NOON, # 100 Unknown, 3 Refills, Acute 09/14/20 16:45:00 EST, 05/15/20 16:45:00 EDT, [facility] # 50, 175, cm, 05/03/20 11:22:00 EDT, Height, 120.2, kg, 03/24/19 19:11:00 EDT, Dry Weight Start Date: 05/15/20 Stop Date: 09/14/20 Status: Ordered omeprazole 40 mg oral enteric coated capsule 1 capsule = 40 mg, By Mouth, 2 times a day, # 180 capsule, 0 Refills, Maintenance, 07/23/20 12:11:00 EDT, EC Capsule, [facility] # 50, 175, cm, 05/03/20 11:22:00 EDT, Height, 120.2, kg, 03/24/19 19:11:00 EDT, Dry Weight Start Date: 07/23/20 Status: Ordered oxyCODONE 5 mg oral tablet 5 mg, 1, tablet, By Mouth, 2 times a day, PRN, PRN for severe pain, # 20 tablet, Refills 0, Tot. Refills 0, Maintenance, as needed for severe pain, 07/09/20 13:51:00 EDT, Route to Pharmacy Electronically, [facility] # [facility], 175, cm, 05/03/20 11:22:0... 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
--- OUTSIDE RECORDS SUMMARY | 2023-07-25 02:16 | XMS_ITS | Continuity of Care Document ---
Author Name Unknown Organization [facility] Address [address] [place] [address]- Care Team Providers Care Medical Information Specialist Name Role Phone Not on Staff, PCP Primary Care Physician Unavail able [place] [facility] [place](s): 11/06/20 - 12/19/20 [facility] [address] [place] [address]- Attending Physician: Raffi Lafleur MD Admitting Physician: [...] Mccall 2Result Comment: [06/24/2017] HIGH DOSE LOT [id number] EXP 01-05-18 [facility] 3Admin Note: Received at the [facility] 4Admin Note: GIVEN AT [facility] [...] 01/23/21 8:11:00 EDT, 08/07/20 15:40:00 EDT, Tablet, [facility] # [facility], 175, cm, 05/03/20 [...] 10/30/20 13:22:00 EST, Route to Pharmacy Electronically, [facility] # [facility], 175, cm, 08/09/20 11:32:0... [...] 2 Active Gastric ulcer(Confirmed) Active Gout(Confirmed) Active halfway (current) use of anticoagulants(Confirmed) Active Hyperlipidemia(Confirmed) Active [...]
--- OUTSIDE RECORDS SUMMARY | 2023-07-25 02:16 | XMS_ITS | Continuity of Care Document ---
Author Name Unknown Organization [facility] Cedric lt Address [address] [place] [address]- Care Team Providers Care Abrading Machine Tender Name Role Phone Yves JHAVERI, Héctor Gooden Primary Care Physician [phone] Encounter [facility] [place] Date(s): 07/17/20 - 08/16/20 [facility] Adult [address] [place] [address]- Allergies, Adverse Reactions, Alerts Substance Reaction Severity [...] (IM) (oldterm) 07/29/07 Given tetanus-diphtheria toxoids (Td) 6/19/03 Given Pneumococcal Vaccine (oldterm) 08/12/01 Given 1Location History: [facility] Mccall 2Result Comment: [06/24/2017] HIGH DOSE LOT [id number] EXP 01-05-18 TRAV Y 3Admin Note: Received at the [facility] 4Admin Note: GIVEN AT [facility] PER PATIENT. 5Early/Late Reason: Nursing Judgment 6Admin Note: GIVEN IN CLINIC SHAM Medications allopurinol 300 mg oral tablet 1, tablet, By Mouth, Daily, # 90 Unknown, Refills 1, Tot. Refills 1, Maintenance, 07/23/20 12:11:00EDT, Route to Pharmacy Electronically, [facility] # [facility], 175, cm, 05/03/20 11:22:00 EDT, Height,120.2, kg, 03/24/19 19:11:00 EDT, Dry Weight Start Date: 07/23/20 Status: Ordered aspirin 81 mg oral tablet, chewable 1 tablet, By Mouth, Daily in AM, # 90 Unknown, 3 Refills, Maintenance, 04/02/20 16:25:00 EDT, [facility], 175, cm, 03/26/20 10:55:00 [...] capsule, 5 Refills, Maintenance, 05/23/20 13:35:00 EDT, [facility] # [facility], 175, cm, 05/03/20 11:22:00 EDT, Height, 120.2, kg, 03/24/19 19:11:00 EDT, Dry Weight Start Date: 05/23/20 Status: Ordered doxycycline hyclate 100 mg oral capsule 1 capsule = 100 mg, By Mouth, 2 times a day, for 10 days, # 20 capsule, 0 Refills, Acute 08/19/20 12:24:00 EST, 08/09/20 12:24:00 EDT, Capsule, [facility] # [facility], 175, cm, 08/09/20 11:32:00 EDT, Height, 120.2, kg, 03/24/19 19:11:00 EDT, Dry Weight Start Date: 08/09/20 Stop Date: 08/19/20 Status: Ordered escitalopram 20 mg oral tablet 1 tablet, By Mouth, Daily, # 30 Unknown, 5 Refills, Maintenance, 05/24/20 22:17:00 EDT, [facility] # [facility], 175, cm, 05/03/20 11:22:00 EDT, Height, 120.2, kg, 03/24/19 19:11:00 EDT, Dry Weight Start Date: 05/24/20 Status: Ordered fenofibrate 160 mg oral tablet 1 tablet, By Mouth, Daily, # 30 Unknown, 5 Refills, Maintenance, 07/17/20 7:50:00 EDT, [facility] # [facility], 175, cm, 05/03/20 11:22:00 EDT, Height, 120.2, kg, 03/24/19 19:11:00 EDT, Dry Weight Start Date: 07/17/20 Status: Ordered Flomax 0.4 mg oral capsule 0.4 mg, By Mouth, Daily, # 90 capsule, Refills 3, Tot. Refills 3, Maintenance, 04/16/20 7:27:00 EDT, Route to Pharmacy Electronically, [facility] # [facility], 175, cm, 03/26/20 10:55:00 EDT, Height, 120.2, kg, 03/24/19 19:11:00 EDT, Dry Weight Start Date: 04/16/20 Status: Ordered furosemide 20 mg oral tablet 1, tablet, By Mouth, Daily, # 30 Unknown, Refills 5, Tot. Refills 0, Maintenance, 05/24/20 22:18:00EDT, Route to Pharmacy Electronically, [facility] # [facility], 175, cm, 05/03/20 11:22:00 EDT, Height,120.2, kg, 03/24/19 19:11:00 EDT, Dry Weight Start Date: 05/24/20 Status: Ordered gabapentin 300 mg oral capsule 300 mg, 1, capsule, By Mouth, 3 times a day, Increase in dose, # 270 capsule, Refills 3, Tot. Refills 3, Soft Stop, 08/14/20 12:55:00 EST, Route to Pharmacy Electronically, [facility] # [facility], 175, cm, 08/09/20 11:32:00 EDT, Height, 120.2, kg, 03/24/... Start Date: 08/14/20 Status: Ordered Gold Murguia See Instructions, apply to affected area as needed, 0 Refills, Maintenance, 03/24/19 13:08:58 EDT Start Date: 03/24/19 Status: Ordered lactobacillus acidophilus oral capsule 1 capsule, By Mouth, Daily, # 60 capsule, 0 Refills, Maintenance, 05/30/20 8:54:00 EDT, Capsule, [facility] # [facility], 1 capsule By Mouth [...] 01/23/21 8:11:00 EDT, 08/07/20 15:40:00 EDT, Tablet, [facility] # 50, 175, cm, 05/03/20 11:22:00EDT, Height, 120.2, kg, 03/24/19 19:11:00 EDT, Dry... Start Date: 08/07/20 Stop Date: 01/23/21 Status: Ordered magnesium oxide 400 mg oral tablet See Instructions, TAKE ONE TABLET BY MOUTH EVERY DAY AT NOON, # 100 Unknown, 3 Refills, Acute 09/14/20 16:45:00 EST, 05/15/20 16:45:00 EDT, [facility] # [facility], 175, cm, 05/03/20 11:22:00 EDT, Height, 120.2, kg, 03/24/19 19:11:00 EDT, Dry Weight Start Date: 05/15/20 Stop Date: 09/14/20 Status: Ordered omeprazole 40 mg oral enteric coated capsule 1 capsule = 40 mg, By Mouth, 2 times a day, # 180 capsule, 0 Refills, Maintenance, 07/23/20 12:11:00 EDT, EC Capsule, [facility] # 50, 175, cm, 05/03/20 11:22:00 EDT, Height, 120.2, kg, 03/24/19 19:11:00 EDT, Dry Weight Start Date: 07/23/20 Status: Ordered oxyCODONE 5 mg oral tablet 5 mg, 1, tablet, By Mouth, 2 times a day, PRN, PRN for severe pain, # 20 tablet, Refills 0, Tot. Refills 0, Maintenance, as needed for severe pain, 08/09/20 12:27:00 EDT, Route to Pharmacy Electronically, [facility] # [facility], 175, cm, 08/09/20 11:32:0... 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
--- OUTSIDE RECORDS SUMMARY | 2023-07-25 02:16 | XMS_ITS | Continuity of Care Document ---
Author Name Unknown Organization [facility] Rajendra Mccall Cedric lt Address [address] [place] [address]- Care Team Providers Care Collateral Specialist Name Role Phone Not on Staff, PCP Primary Care Physician Unavail able Encounter [facility] Date(s): 11/22/20 - 12/22/20 [facility] [address] [place] [address]- Allergies, Adverse Reactions, Alerts Substance Reaction Severity [...] Mccall 2Result Comment: [06/24/2017] HIGH DOSE LOT [id number] EXP 01-05-18 [facility] 3Admin Note: Received at the [facility] 4Admin Note: GIVEN AT CENTER [...] 01/23/21 8:11:00 EDT, 08/07/20 15:40:00 EDT, Tablet, [facility] # [facility], 175, cm, 05/03/20 11:22:00EDT, [...] 10/30/20 13:22:00 EST, Route to Pharmacy Electronically, [facility] # [facility], 175, cm, 08/09/20 11:32:0... [...] 2 Active Gastric ulcer(Confirmed) Active Gout(Confirmed) Active half-way (current) use of anticoagulants(Confirmed) Active Hyperlipidemia(Confirmed) Active [...]
--- OUTSIDE RECORDS SUMMARY | 2023-07-25 02:16 | XMS_ITS | Continuity of Care Document ---
Author Name Unknown Organization [facility] Cal Cedric lt Address [address] [place] [address]- Care Team Providers Care Project Administrator Name Role Phone Yves JHAVERI, Héctor Gooden Primary Care Physician [phone] Encounter [facility] [place] Date(s): 07/11/20 - 08/18/20 [facility] Adult [address] [place] [address]- Attending Physician: Not on Staff, Attending MD [...] Mccall 2Result Comment: [06/24/2017] HIGH DOSE LOT [id number] EXP 01-05-18 TRAV 3Admin Note: Received at the [facility] 4Admin Note: GIVEN AT [facility] PER PATIENT. 5Early/Late Reason: Nursing Judgment 6Admin Note: GIVEN IN CLINIC [facility]AM Medications allopurinol 300 mg oral tablet 1, tablet, By Mouth, Daily, # 90 Unknown, Refills 1, Tot. Refills 1, Maintenance, 07/23/20 12:11:00EDT, Route to Pharmacy Electronically, [facility] # [facility], 175, cm, 05/03/20 11:22:00 EDT, Height,120.2, kg, 03/24/19 19:11:00 EDT, Dry Weight Start Date: 07/23/20 Status: Ordered aspirin 81 mg oral tablet, chewable 1 tablet, By Mouth, Daily in AM, # 90 Unknown, 3 Refills, Maintenance, 04/02/20 16:25:00 EDT, [facility], 175, cm, 03/26/20 10:55:00 [...] capsule, 5 Refills, Maintenance, 05/23/20 13:35:00 EDT, [facility] # 50, 175, cm, 05/03/20 11:22:00 EDT, Height, 120.2, kg, 03/24/19 19:11:00 EDT, Dry Weight Start Date: 05/23/20 Status: Ordered doxycycline hyclate 100 mg oral capsule 1 capsule = 100 mg, By Mouth, 2 times a day, for 10 days, # 20 capsule, 0 Refills, Acute 08/19/20 12:24:00 EST, 08/09/20 12:24:00 EDT, Capsule, [facility] # 50, 175, cm, 08/09/20 11:32:00 EDT, Height, 120.2, kg, 03/24/19 19:11:00 EDT, Dry Weight Start Date: 08/09/20 Stop Date: 08/19/20 Status: Ordered escitalopram 20 mg oral tablet 1 tablet, By Mouth, Daily, # 30 Unknown, 5 Refills, Maintenance, 05/24/20 22:17:00 EDT, [facility] # 50, 175, cm, 05/03/20 11:22:00 EDT, Height, 120.2, kg, 03/24/19 19:11:00 EDT, Dry Weight Start Date: 05/24/20 Status: Ordered fenofibrate 160 mg oral tablet 1 tablet, By Mouth, Daily, # 30 Unknown, 5 Refills, Maintenance, 07/17/20 7:50:00 EDT, [facility] # 50, 175, cm, 05/03/20 11:22:00 EDT, Height, 120.2, kg, 03/24/19 19:11:00 EDT, Dry Weight Start Date: 07/17/20 Status: Ordered Flomax 0.4 mg oral capsule 0.4 mg, By Mouth, Daily, # 90 capsule, Refills 3, Tot. Refills 3, Maintenance, 04/16/20 7:27:00 EDT, Route to Pharmacy Electronically, [facility] # 50, 175, cm, 03/26/20 10:55:00 EDT, Height, 120.2, kg, 03/24/19 19:11:00 EDT, Dry Weight Start Date: 04/16/20 Status: Ordered furosemide 20 mg oral tablet 1, tablet, By Mouth, Daily, # 30 Unknown, Refills 5, Tot. Refills 0, Maintenance, 05/24/20 22:18:00EDT, Route to Pharmacy Electronically, [facility] # 50, 175, cm, 05/03/20 11:22:00 EDT, Height,120.2, kg, 03/24/19 19:11:00 EDT, Dry Weight Start Date: 05/24/20 Status: Ordered gabapentin 300 mg oral capsule 300 mg, 1, capsule, By Mouth, 3 times a day, Increase in dose, # 270 capsule, Refills 3, Tot. Refills 3, Soft Stop, 08/14/20 12:55:00 EST, Route to Pharmacy Electronically, [facility] # 50, 175, cm, 08/09/20 11:32:00 EDT, Height, 120.2, kg, ... Start Date: 08/14/20 Status: Ordered Gold Murguia See Instructions, apply to affected area as needed, 0 Refills, Maintenance, 03/24/19 13:08:58 EDT Start Date: 03/24/19 Status: Ordered lactobacillus acidophilus oral capsule 1 capsule, By Mouth, Daily, # 60 capsule, 0 Refills, Maintenance, 05/30/20 8:54:00 EDT, Capsule, [facility] # 50, 1 capsule By [...] 01/23/21 8:11:00 EDT, 08/07/20 15:40:00 EDT, Tablet, [facility] # 50, 175, cm, 05/03/20 11:22:00EDT, Height, 120.2, kg, 03/24/19 19:11:00 EDT, Dry... Start Date: 08/07/20 Stop Date: 01/23/21 Status: Ordered magnesium oxide 400 mg oral tablet See Instructions, TAKE ONE TABLET BY MOUTH EVERY DAY AT NOON, # 100 Unknown, 3 Refills, Acute 09/14/20 16:45:00 EST, 05/15/20 16:45:00 EDT, [facility] # 50, 175, cm, 05/03/20 11:22:00 EDT, Height, 120.2, kg, 03/24/19 19:11:00 EDT, Dry Weight Start Date: 05/15/20 Stop Date: 09/14/20 Status: Ordered omeprazole 40 mg oral enteric coated capsule 1 capsule = 40 mg, By Mouth, 2 times a day, # 180 capsule, 0 Refills, Maintenance, 07/23/20 12:11:00 EDT, EC Capsule, [facility] # 50, 175, cm, 05/03/20 11:22:00 EDT, Height, 120.2, kg, 03/24/19 19:11:00 EDT, Dry Weight Start Date: 07/23/20 Status: Ordered oxyCODONE 5 mg oral tablet 5 mg, 1, tablet, By Mouth, 2 times a day, PRN, PRN for severe pain, # 20 tablet, Refills 0, Tot. Refills 0, Maintenance, as needed for severe pain, 08/09/20 12:27:00 EDT, Route to Pharmacy Electronically, [facility] # 50, 175, cm, 08/09/20 11:32:0... 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
--- OUTSIDE RECORDS SUMMARY | 2023-07-25 02:16 | XMS_ITS | Continuity of Care Document ---
Author Name Unknown Organization [facility] Cal Cedric lt Address [address] [place] [address]- Care Team Providers Care Reclamation Worker Name Role Phone Yves JHAVERI, Héctor Gooden Primary Care Physician [place] [facility] 06/07[place] - 07/07/20 [facility] Adult [address] [place] [address]- [facility] Allergies, Adverse Reactions, Alerts Substance Reaction Severity Status morphine 1 Active quinine rash Active cyclobenzaprine 2 Active sulfa drugs rash Active levoFLOXacin 3 Active penicillins 4 sob Active 1hypotension 2ALL [...] Mccall 2Result Comment: [06/24/2017] HIGH DOSE LOT [id number] EXP 01-05-18 TRAV Y 3Admin Note: Received at the [facility] 4Admin Note: GIVEN AT [facility] PER PATIENT. 5Early/Late Reason: Nursing Judgment 6Admin Note: GIVEN IN [facility] Medications allopurinol 300 mg oral tablet 1, tablet, By Mouth, Daily, # 90 Unknown, Refills 1, Tot. Refills 1, Maintenance, 02/06/20 15:38:00EDT, Route to Pharmacy Electronically, [facility] # [facility], 175, cm, 11/17/19 [...] capsule, 5 Refills, Maintenance, 05/23/20 13:35:00 EDT, [facility] # [facility], 175, cm, 05/03/20 11:22:00 EDT, Height, 120.2, kg, 03/24/19 19:11:00 EDT, Dry Weight Start Date: 05/23/20 Status: Ordered escitalopram 20 mg oral tablet 1 tablet, By Mouth, Daily, # 30 Unknown, 5 Refills, Maintenance, 05/24/20 22:17:00 EDT, [facility] # 50, 175, cm, 05/03/20 11:22:00 EDT, Height, 120.2, kg, 03/24/19 19:11:00 EDT, Dry Weight Start Date: 05/24/20 Status: Ordered fenofibrate 160 mg oral tablet 1 tablet, By Mouth, Daily, # 30 Unknown, 6 Refills, Maintenance, 01/03/20 11:54:00 EDT, [facility] # 50, 175, cm, 11/17/19 12:58:00 EST, Height, 120.2, kg, 03/24/19 19:11:00 EDT, Dry Weight Start Date: 01/03/20 Status: Ordered Flomax 0.4 mg oral capsule 0.4 mg, By Mouth, Daily, # 90 capsule, Refills 3, Tot. Refills 3, Maintenance, 04/16/20 7:27:00 EDT, Route to Pharmacy Electronically, [facility] # 50, 175, cm, 03/26/20 10:55:00 EDT, Height, 120.2, kg, 03/24/19 19:11:00 EDT, Dry Weight Start Date: 04/16/20 Status: Ordered furosemide 20 mg oral tablet 1, tablet, By Mouth, Daily, # 30 Unknown, Refills 5, Tot. Refills 0, Maintenance, 05/24/20 22:18:00EDT, Route to Pharmacy Electronically, [facility] # 50, 175, cm, 05/03/20 11:22:00 EDT, Height,120.2, kg, 03/24/19 19:11:00 EDT, Dry Weight Start Date: 05/24/20 Status: Ordered gabapentin 300 mg oral capsule See Instructions, # 180 Unknown, Refills 3 Tot. Refills 3, TAKE ONE CAPSULE BY MOUTH TWICE A DAY, [facility] # 50 Start Date: 08/29/19 Status: Ordered Gold Murguia See Instructions, apply to affected area as needed, 0 Refills, Maintenance, 03/24/19 13:08:58 EDT Start Date: 03/24/19 Status: Ordered lactobacillus acidophilus oral capsule 1 capsule, By Mouth, Daily, # 60 capsule, 0 Refills, Maintenance, 05/30/20 8:54:00 EDT, Capsule, [facility] # 50, 1 capsule By [...] 08/07/20 15:40:00 EDT, 02/24/20 11:36:00 EDT, Tablet, [facility] # 50, 175, cm, 11/17/19 12:58:00 EST, Height, 120.2, kg, 03/24/19 19:11:00 EDT, Dry... Start Date: 02/24/20 Stop Date: 08/07/20 Status: Ordered magnesium oxide 400 mg oral tablet See Instructions, TAKE ONE TABLET BY MOUTH EVERY DAY AT NOON, # 100 Unknown, 3 Refills, Acute 09/14/20 16:45:00 EST, 05/15/20 16:45:00 EDT, [facility] # 50, 175, cm, 05/03/20 11:22:00 EDT, Height, 120.2, kg, 03/24/19 19:11:00 EDT, Dry Weight Start Date: 05/15/20 Stop Date: 09/14/20 Status: Ordered omeprazole 40 mg oral enteric coated capsule 1 capsule = 40 mg, By Mouth, 2 times a day, # 180 capsule, 0 Refills, Maintenance, 04/30/20 15:34:00 EDT, EC Capsule, [facility] # 50, 175, cm, 03/26/20 10:55:00 EDT, Height, 120.2, kg, 03/24/19 19:11:00 EDT, Dry Weight Start Date: 04/30/20 Status: Ordered oxyCODONE 5 mg oral tablet 5 mg, 1, tablet, By Mouth, 2 times a day, PRN, PRN for severe pain, # 20 tablet, Refills 0, Tot. Refills 0, Maintenance, as needed for severe pain, 06/07/20 12:23:00 EDT, Route to Pharmacy Electronically, [facility] # 50, 175, cm, 05/03/20 11:22:0... [...] 05/23/20 13:35:00 EDT, Route to Pharmacy Electronically, [facility] # 50, 175, cm, 05/03/20 11:22:00 [...] 11, TAKE ONE TABLET BY MOUTH EVERY EVENING,[facility] # 50 Start Date: 08/10/19 Status: [...] 2 Active Gastric ulcer(Confirmed) Active Gout(Confirmed) Active intermediate frame tender (current) use of anticoagulants(Confirmed) Active Hyperlipidemia(Confirmed) Active [...]
--- OUTSIDE RECORDS SUMMARY | 2023-07-25 02:16 | XMS_ITS | Continuity of Care Document ---
Author Name Unknown Organization [facility] Rajendra Mccall Cedric lt Address [address] [place] [address]- Care Team Providers Care Mechanical Assembly Technician Name Role Phone Not on Staff, PCP Primary Care Physician Unavail able Encounter [facility] Date(s): 11/02/20 - 12/02/20 [facility] Adult [address] [place] [address]- Allergies, Adverse Reactions, Alerts Substance Reaction Severity [...] Mccall 2Result Comment: [06/24/2017] HIGH DOSE LOT [id number] EXP 01-05-18 BIG Y 3Admin Note: Received at the [facility] 4Admin Note: GIVEN AT [facility] PER [...] 01/23/21 8:11:00 EDT, 08/07/20 15:40:00 EDT, Tablet, [facility] # 50, 175, cm, 05/03/20 11:22:00EDT, [...] 10/30/20 13:22:00 EST, Route to Pharmacy Electronically, [facility] # 50, 175, cm, 08/09/20 11:32:0... [...] 2 Active Gastric ulcer(Confirmed) Active Gout(Confirmed) Active senior care (current) use of anticoagulants(Confirmed) Active Hyperlipidemia(Confirmed) Active [...]
--- OUTSIDE RECORDS SUMMARY | 2023-07-25 02:16 | XMS_ITS | Continuity of Care Document ---
Author Name Unknown Organization [facility] Cal Cedric lt Address [address] [place] [address]- Care Team Providers Care Agriculture Professor Name Role Phone Yves JHAVERI, Héctor Gooden Primary Care Physician Encounter [facility] Date(s): 08/22/20 - 09/21/20 [facility] Adult [address] [place] [address]- Allergies, Adverse Reactions, Alerts Substance Reaction Severity [...] Mccall 2Result Comment: [06/24/2017] HIGH DOSE LOT [id number] EXP 01-05-18 TRAV Y 3Admin Note: Received at the [facility] 4Admin Note: GIVEN AT [facility] PER PATIENT. 5Early/Late Reason: Nursing Judgment 6Admin Note: GIVEN IN [facility] Medications allopurinol 300 mg oral tablet 1, tablet, By Mouth, Daily, # 90 Unknown, Refills 1, Tot. Refills 1, Maintenance, 07/23/20 12:11:00EDT, Route to Pharmacy Electronically, [facility] # [facility], 175, cm, 05/03/20 [...] capsule, 5 Refills, Maintenance, 05/23/20 13:35:00 EDT, [facility] # [facility], 175, cm, 05/03/20 11:22:00 EDT, Height, 120.2, kg, 03/24/19 19:11:00 EDT, Dry Weight Start Date: 05/23/20 Status: Ordered escitalopram 20 mg oral tablet 1 tablet, By Mouth, Daily, # 30 Unknown, 5 Refills, Maintenance, 05/24/20 22:17:00 EDT, [facility] # 50, 175, cm, 05/03/20 11:22:00 EDT, Height, 120.2, kg, 03/24/19 19:11:00 EDT, Dry Weight Start Date: 05/24/20 Status: Ordered fenofibrate 160 mg oral tablet 1 tablet, By Mouth, Daily, # 30 Unknown, 5 Refills, Maintenance, 07/17/20 7:50:00 EDT, [facility] # 50, 175, cm, 05/03/20 11:22:00 EDT, Height, 120.2, kg, 03/24/19 19:11:00 EDT, Dry Weight Start Date: 07/17/20 Status: Ordered Flomax 0.4 mg oral capsule 0.4 mg, By Mouth, Daily, # 90 capsule, Refills 3, Tot. Refills 3, Maintenance, 04/16/20 7:27:00 EDT, Route to Pharmacy Electronically, [facility] # 50, 175, cm, 03/26/20 10:55:00 EDT, Height, 120.2, kg, 03/24/19 19:11:00 EDT, Dry Weight Start Date: 04/16/20 Status: Ordered furosemide 20 mg oral tablet 1, tablet, By Mouth, Daily, # 30 Unknown, Refills 5, Tot. Refills 0, Maintenance, 05/24/20 22:18:00EDT, Route to Pharmacy Electronically, [facility] # 50, 175, cm, 05/03/20 11:22:00 EDT, Height,120.2, kg, 03/24/19 19:11:00 EDT, Dry Weight Start Date: 05/24/20 Status: Ordered gabapentin 300 mg oral capsule 300 mg, 1, capsule, By Mouth, 3 times a day, Increase in dose, # 270 capsule, Refills 3, Tot. Refills 3, Soft Stop, 08/14/20 12:55:00 EST, Route to Pharmacy Electronically, [facility] # 50, 175, cm, 08/09/20 11:32:00 EDT, Height, 120.2, kg, ... Start Date: 08/14/20 Status: Ordered Gold Murguia See Instructions, apply to affected area as needed, 0 Refills, Maintenance, 03/24/19 13:08:58 EDT Start Date: 03/24/19 Status: Ordered lactobacillus acidophilus oral capsule 1 capsule, By Mouth, Daily, # 60 capsule, 0 Refills, Maintenance, 05/30/20 8:54:00 EDT, Capsule, [facility] # [facility], 1 capsule By Mouth [...] 01/23/21 8:11:00 EDT, 08/07/20 15:40:00 EDT, Tablet, [facility] # 50, 175, cm, 05/03/20 11:22:00EDT, Height, 120.2, kg, 03/24/19 19:11:00 EDT, Dry... Start Date: 08/07/20 Stop Date: 01/23/21 Status: Ordered omeprazole 40 mg oral enteric coated capsule 1 capsule = 40 mg, By Mouth, 2 times a day, # 180 capsule, 0 Refills, Maintenance, 07/23/20 12:11:00 EDT, EC Capsule, [facility] # 50, 175, cm, 05/03/20 11:22:00 EDT, Height, 120.2, kg, 03/24/19 19:11:00 EDT, Dry Weight Start Date: 07/23/20 Status: Ordered oxyCODONE 5 mg oral tablet 5 mg, 1, tablet, By Mouth, 2 times a day, PRN, PRN for severe pain, # 20 tablet, Refills 0, Tot. Refills 0, Maintenance, as needed for severe pain, 09/05/20 16:21:00 EST, Route to Pharmacy Electronically, [facility] # 50, 175, cm, 08/09/20 11:32:0... [...] 05/23/20 13:35:00 EDT, Route to Pharmacy Electronically, [facility] # 50, 175, cm, 05/03/20 11:22:00 [...] 11 Refills, Soft Stop, 07/17/20 13:47:00 EDT, [facility] # 50, 175, cm, 05/03/20 11:22:00 [...] 2 Active Gastric ulcer(Confirmed) Active Gout(Confirmed) Active detention (current) use of anticoagulants(Confirmed) Active Hyperlipidemia(Confirmed) Active [...]
--- OUTSIDE RECORDS SUMMARY | 2023-07-25 02:16 | XMS_ITS | Continuity of Care Document ---
Author Name Unknown Organization [facility] Cedric lt Address [address] [place] [address]- Care Team Providers Care Web Software Engineer Name Role Phone Yves JHAVERI, Héctor Gooden Primary Care Physician Encounter [facility] Date(s): 07/09/20 - 08/08/20 [facility] Adult [address] [place] [address]- [facility] Allergies, Adverse Reactions, Alerts Substance [...] Mccall 2Result Comment: [06/24/2017] HIGH DOSE LOT [id number] EXP 01-05-18 TRAV Y 3Admin Note: Received at the [facility] 4Admin Note: GIVEN AT [facility] PER PATIENT. 5Early/Late Reason: Nursing Judgment 6Admin Note: GIVEN IN [facility]IC [facility] Medications allopurinol 300 mg oral tablet 1, tablet, By Mouth, Daily, # 90 Unknown, Refills 1, Tot. Refills 1, Maintenance, 07/23/20 12:11:00EDT, Route to Pharmacy Electronically, [facility] # [facility], 175, cm, 05/03/20 [...] capsule, 5 Refills, Maintenance, 05/23/20 13:35:00 EDT, [facility] # [facility], 175, cm, 05/03/20 11:22:00 EDT, Height, 120.2, kg, 03/24/19 19:11:00 EDT, Dry Weight Start Date: 05/23/20 Status: Ordered escitalopram 20 mg oral tablet 1 tablet, By Mouth, Daily, # 30 Unknown, 5 Refills, Maintenance, 05/24/20 22:17:00 EDT, [facility] # [facility], 175, cm, 05/03/20 [...] BY MOUTH TWICE A DAY, [facility] # 50 Start Date: 08/29/19 [...] 01/23/21 8:11:00 EDT, 08/07/20 15:40:00 EDT, Tablet, [facility] # [facility], 175, cm, 05/03/20 11:22:00EDT, Height, 120.2, kg, 03/24/19 19:11:00 EDT, Dry... Start Date: 08/07/20 Stop Date: 01/23/21 Status: Ordered magnesium oxide 400 mg oral tablet See Instructions, TAKE ONE TABLET BY MOUTH EVERY DAY AT NOON, # 100 Unknown, 3 Refills, Acute 09/14/20 16:45:00 EST, 05/15/20 16:45:00 EDT, [facility] # 50, 175, cm, 05/03/20 11:22:00 EDT, Height, 120.2, kg, 03/24/19 19:11:00 EDT, Dry Weight Start Date: 05/15/20 Stop Date: 09/14/20 Status: Ordered omeprazole 40 mg oral enteric coated capsule 1 capsule = 40 mg, By Mouth, 2 times a day, # 180 capsule, 0 Refills, Maintenance, 07/23/20 12:11:00 EDT, EC Capsule, [facility] # 50, 175, cm, 05/03/20 11:22:00 EDT, Height, 120.2, kg, 03/24/19 19:11:00 EDT, Dry Weight Start Date: 07/23/20 Status: Ordered oxyCODONE 5 mg oral tablet 5 mg, 1, tablet, By Mouth, 2 times a day, PRN, PRN for severe pain, # 20 tablet, Refills 0, Tot. Refills 0, Maintenance, as needed for severe pain, 07/09/20 13:51:00 EDT, Route to Pharmacy Electronically, [facility] # [facility], 175, cm, 05/03/20 11:22:0... [...] 05/23/20 13:35:00 EDT, Route to Pharmacy Electronically, [facility] # [facility], 175, cm, 05/03/20 11:22:00 [...] 11 Refills, Soft Stop, 07/17/20 13:47:00 EDT, [facility] # [facility], 175, cm, 05/03/20 11:22:00 [...]
--- OUTSIDE RECORDS SUMMARY | 2023-07-25 02:16 | XMS_ITS | Continuity of Care Document ---
Author Name Unknown Organization [facility] Cal Cedric lt Address [address] [place] [address]- Care Team Providers Care Director Of Safety And Security Name Role Phone Héctor Marinelli MD Primary Care Physician [place] [facility] [place]s): 09/12/20 - 09/19/20 [facility] Adult [address] [place] [address]- Attending Physician: Héctor Marinelli MD Allergies, Adverse [...] Mccall 2Result Comment: [06/24/2017] HIGH DOSE LOT [id number] EXP 01-05-18 TRAV 3Admin Note: Received at the [facility] 4Admin Note: GIVEN AT [facility] PER PATIENT. 5Early/Late Reason: Nursing Judgment 6Admin Note: GIVEN IN [facility]INIC [facility] Medications allopurinol 300 mg oral tablet 1, tablet, By Mouth, Daily, # 90 Unknown, Refills 1, Tot. Refills 1, Maintenance, 07/23/20 12:11:00EDT, Route to Pharmacy Electronically, [facility] # [facility], 175, cm, 05/03/20 11:22:00 EDT, Height,120.2, kg, 03/24/19 19:11:00 EDT, Dry Weight Start Date: 07/23/20 Status: Ordered aspirin 81 mg oral tablet, chewable 1 tablet, By Mouth, Daily in AM, # 90 Unknown, 3 Refills, Maintenance, 04/02/20 16:25:00 EDT, [facility], 175, cm, 03/26/20 10:55:00 [...] capsule, 5 Refills, Maintenance, 05/23/20 13:35:00 EDT, [facility] # 50, 175, cm, 05/03/20 11:22:00 EDT, Height, 120.2, kg, 03/24/19 19:11:00 EDT, Dry Weight Start Date: 05/23/20 Status: Ordered escitalopram 20 mg oral tablet 1 tablet, By Mouth, Daily, # 30 Unknown, 5 Refills, Maintenance, 05/24/20 22:17:00 EDT, [facility] # 50, 175, cm, 05/03/20 11:22:00 EDT, Height, 120.2, kg, 03/24/19 19:11:00 EDT, Dry Weight Start Date: 05/24/20 Status: Ordered fenofibrate 160 mg oral tablet 1 tablet, By Mouth, Daily, # 30 Unknown, 5 Refills, Maintenance, 07/17/20 7:50:00 EDT, [facility] # 50, 175, cm, 05/03/20 11:22:00 EDT, Height, 120.2, kg, 03/24/19 19:11:00 EDT, Dry Weight Start Date: 07/17/20 Status: Ordered Flomax 0.4 mg oral capsule 0.4 mg, By Mouth, Daily, # 90 capsule, Refills 3, Tot. Refills 3, Maintenance, 04/16/20 7:27:00 EDT, Route to Pharmacy Electronically, [facility] # 50, 175, cm, 03/26/20 10:55:00 EDT, Height, 120.2, kg, 03/24/19 19:11:00 EDT, Dry Weight Start Date: 04/16/20 Status: Ordered furosemide 20 mg oral tablet 1, tablet, By Mouth, Daily, # 30 Unknown, Refills 5, Tot. Refills 0, Maintenance, 05/24/20 22:18:00EDT, Route to Pharmacy Electronically, [facility] # 50, 175, cm, 05/03/20 11:22:00 EDT, Height,120.2, kg, 03/24/19 19:11:00 EDT, Dry Weight Start Date: 05/24/20 Status: Ordered gabapentin 300 mg oral capsule 300 mg, 1, capsule, By Mouth, 3 times a day, Increase in dose, # 270 capsule, Refills 3, Tot. Refills 3, Soft Stop, 08/14/20 12:55:00 EST, Route to Pharmacy Electronically, [facility] # 50, 175, cm, 08/09/20 11:32:00 EDT, Height, 120.2, kg, ... Start Date: 08/14/20 Status: Ordered Gold Murguia See Instructions, apply to affected area as needed, 0 Refills, Maintenance, 03/24/19 13:08:58 EDT Start Date: 03/24/19 Status: Ordered lactobacillus acidophilus oral capsule 1 capsule, By Mouth, Daily, # 60 capsule, 0 Refills, Maintenance, 05/30/20 8:54:00 EDT, Capsule, [facility] # [facility], 1 capsule By Mouth [...] 01/23/21 8:11:00 EDT, 08/07/20 15:40:00 EDT, Tablet, [facility] # 50, 175, cm, 05/03/20 11:22:00EDT, Height, 120.2, kg, 03/24/19 19:11:00 EDT, Dry... Start Date: 08/07/20 Stop Date: 01/23/21 Status: Ordered omeprazole 40 mg oral enteric coated capsule 1 capsule = 40 mg, By Mouth, 2 times a day, # 180 capsule, 0 Refills, Maintenance, 07/23/20 12:11:00 EDT, EC Capsule, [facility] # 50, 175, cm, [...] 09/05/20 16:21:00 EST, Route to Pharmacy Electronically, [facility] # [facility], 175, cm, 08/09/20 11:32:0... [...] 05/23/20 13:35:00 EDT, Route to Pharmacy Electronically, [facility] # 50, 175, cm, 05/03/20 11:22:00 [...] 11 Refills, Soft Stop, 07/17/20 13:47:00 EDT, [facility] # 50, 175, cm, [...] 2 Active Gastric ulcer(Confirmed) Active Gout(Confirmed) Active automatic chief (current) use of anticoagulants(Confirmed) Active Hyperlipidemia(Confirmed) Active [...]
--- OUTSIDE RECORDS SUMMARY | 2023-07-25 02:16 | XMS_ITS | Continuity of Care Document ---
Author Name Unknown Organization [facility] Address [address] [place] [address]- Care Team Providers Care Charge Out Clerk Name Role Phone Avinash Patrick MD Primary Care Physician Encounter [facility] Date(s): 11/20/22 - 12/20/22 [facility] [address] [place] [id number]- Allergies, Adverse Reactions, Alerts Substance Reaction Severity [...] toxoids (Td) 03/30/03 Given Pneumococcal Vaccine (oldterm) 11/1/01 Given 1Location History: Jeffrey Mccall 2Result Comment: [06/24/2017] HIGH DOSE LOT [id number] EXP 01-05-18 BIG Y 3Admin Note: Received at the [facility] 4Admin Note: GIVEN AT [facility]ENTER [facility] PER PATIENT. 5Early/Late Reason: Nursing Judgment 6Admin Note: GIVEN IN CLINIC SHAM Medications allopurinol 300 mg oral tablet 1, tablet, By Mouth, Daily, # 90 tablet, Refills 3, Tot. Refills 3, Maintenance, 10/09/20 14:30:00 EST, Route to Pharmacy Electronically, [facility], 175, cm, 08/09/20 11:32:00 EDT, [...] Date: 10/09/20 Status: Ordered Problem List Condition Confirmation Course Effective Dates Status Health Status Informant COPD exacerbation Confirmed Active Anemia Confirmed 10/25/07 Active Anxiety and depression Confirmed Active Atrial fibrillation Confirmed Active Back pain Confirmed Active BPH (benign prostatic hyperplasia) Confirmed Active BPH Confirmed Active CAD - Coronary artery disease 1 Confirmed Active Prostate carcinoma Confirmed Active Pacemaker Confirmed Active Cataract Confirmed 01/18/08 Active CHF exacerbation Confirmed Active Atherosclerotic heart disease Confirmed Active CTS - Carpal tunnel syndrome left-sided Confirmed 05/25/07 Active Depression Confirmed Active DVT left leg Confirmed 07/06/06 Active Erectile dysfunction Confirmed Active Gallstones 2 Confirmed Active Gastric ulcer Confirmed Active Gout Confirmed Active [facility] (current) use of anticoagulants Confirmed Active Hyperlipidemia Confirmed Active HTN (hypertension) Confirmed Active Hypertriglyceridemia Confirmed Active Respiratory failure with hypoxia Confirmed Active Impaired fasting glucose Confirmed 10/25/07 Active Insomnia Confirmed Active Intertrigo Confirmed Active Liver lesion Confirmed Active Macular degeneration Confirmed 01/18/08 Active Actinic keratoses Confirmed Active Neoplasm of uncertain behavior Confirmed Active CATRINA - Obstructive sleep apnea Confirmed Active Overweight Confirmed Active Hand paresthesia, bilateral Confirmed Active Perennial allergic rhinitis Confirmed Active PND - Postnasal drip Confirmed 02/26/06 Active Pneumonia Confirmed Active Septic prepatellar bursitis Confirmed Active Major depressive disorder, recurrent Confirmed Active Spinal stenosis 3 Confirmed Active Tobacco abuse Confirmed 05/12/07 Active Venous stasis Confirmed Active 1PTCA RCA and rotablade w/ stent - Dr. Welch 2possible seen on LS spine xray 3surgery 10/17 Dr. Orellana Social History Social History Type Response Smoking Status Current every day sm maria teresa entered on: 11/04/17 Sex Patient Care team information Care Team Personnel Name: Edita Mccall RN Position: [facility] RN Supv Member Role: Primary Care Nurse Name: Jakub Mayberry RN Position: S RN Member Role: Primary Care Nurse Name: Angie Lafleur RN Position: [facility] RN Member Role: Primary Care Nurse Name: Mishel Bingham RN Position: [facility] PCO RN Member Role: Primary Care Nurse Name: Avinash Patrick MD Position: [facility] Outreach Member Role: PCP Address: Address: [address] [place] [id number] Name: Zunilda Ocampo RN Position: [facility] RN Member Role: Primary Care Nurse Name: Chary Kelley RN Position: [facility] RN Member Role: Primary Care Nurse Name: Lauren Morrow RN Position: [facility] SN RN Member Role: Primary Care Nurse Name: Renée Littljeohn RN Position: [facility] SN RN Member Role: Primary Care Nurse Care Team Related Persons Name: CHANDRIKA DE OLIVEIRA Address: home [address] [place] [address] Name: PAYTON HAWKMY Address: home [address] [place] [address] Name: SHAYE MEYER Name: ALEXANDR VELAZQUEZ Address: [place] [address]
--- OUTSIDE RECORDS SUMMARY | 2023-07-25 02:16 | XMS_ITS | Continuity of Care Document ---
Author Name Unknown Organization [facility] Address [address] [place] [address]- Care Team Providers Care Plant And Maintenance Technician Name Role Phone Yves JHAVERI, Héctor Gooden Primary Care Physician Encounter [facility] Date(s): 04/15/20 - 05/15/20 [facility] Adult [address] [place] [address]- [facility] Allergies, Adverse Reactions, Alerts Substance [...] Mccall 2Result Comment: [06/24/2017] HIGH DOSE LOT [id number] EXP 01-05-18 TRAV Y 3Admin Note: Received at the [facility] 4Admin Note: GIVEN AT [facility]ENTER [facility] PER PATIENT. 5Early/Late Reason: Nursing Judgment 6Admin Note: GIVEN IN [facility]IC [facility] Medications allopurinol 300 mg oral tablet 1, tablet, By Mouth, Daily, # 90 Unknown, Refills 1, Tot. Refills 1, Maintenance, 02/06/20 15:38:00EDT, Route to Pharmacy Electronically, [facility], 175, cm, 11/17/19 12:58:00 EST, Height,120.2, kg, 03/24/19 19:11:00 EDT, Dry Weight Start Date: 02/06/20 Status: Ordered aspirin 81 mg oral tablet, chewable 1 tablet, By Mouth, Daily in AM, # 90 Unknown, 3 Refills, Maintenance, 04/02/20 16:25:00 EDT, [facility], 175, cm, 03/26/20 10:55:00 [...] capsule, 5 Refills, Maintenance, 11/10/19 5:19:00 EST, [facility] # [facility], 175, cm, 09/13/19 14:21:00 EST, Height, 120.2, kg, 03/24/19 19:11:00 EDT, Dry Weight Start Date: 11/10/19 Status: Ordered escitalopram 20 mg oral tablet 1 tablet, By Mouth, Daily, # 30 Unknown, 5 Refills, Maintenance, 12/19/19 16:54:00 EDT, [facility] # [facility], 175, cm, 11/17/19 12:58:00 EST, Height, 120.2, kg, 03/24/19 19:11:00 EDT, Dry Weight Start Date: 12/19/19 Status: Ordered fenofibrate 160 mg oral tablet 1 tablet, By Mouth, Daily, # 30 Unknown, 6 Refills, Maintenance, 01/03/20 11:54:00 EDT, [facility] # [facility], 175, cm, 11/17/19 12:58:00 EST, Height, 120.2, kg, 03/24/19 19:11:00 EDT, Dry Weight Start Date: 01/03/20 Status: Ordered Flomax 0.4 mg oral capsule 0.4 mg, By Mouth, Daily, # 90 capsule, Refills 3, Tot. Refills 3, Maintenance, 04/16/20 7:27:00 EDT, Route to Pharmacy Electronically, [facility] # [facility], 175, cm, 03/26/20 10:55:00 EDT, Height, 120.2, kg, 03/24/19 19:11:00 EDT, Dry Weight Start Date: 04/16/20 Status: Ordered furosemide 20 mg oral tablet 1, tablet, By Mouth, Daily, # 30 tablet, Refills 5, Tot. Refills 5, Soft Stop, 11/21/19 12:13:00 EST, Route to Pharmacy Electronically, [facility] # [facility], 175, cm, 11/17/19 12:58:00 EST, Height, 120.2, kg, 03/24/19 19:11:00 EDT, Dry Weight Start Date: 11/21/19 Status: Ordered gabapentin 300 mg oral capsule See Instructions, # 180 Unknown, Refills 3 Tot. Refills 3, TAKE ONE CAPSULE BY MOUTH TWICE A DAY, [facility] # [facility] Start Date: 08/29/19 [...] 08/07/20 15:40:00 EDT, 02/24/20 11:36:00 EDT, Tablet, [facility] # [facility], 175, cm, 11/17/19 12:58:00 EST, Height, 120.2, kg, 03/24/19 19:11:00 EDT, Dry... Start Date: 02/24/20 Stop Date: 08/07/20 Status: Ordered magnesium oxide 400 mg oral tablet See Instructions, TAKE ONE TABLET BY MOUTH EVERY DAY AT NOON, # 100 Unknown, 3 Refills, Acute 09/14/20 16:45:00 EST, 05/15/20 16:45:00 EDT, [facility] # [facility], 175, cm, 05/03/20 11:22:00 EDT, Height, 120.2, kg, 03/24/19 19:11:00 EDT, Dry Weight Start Date: 05/15/20 Stop Date: 09/14/20 Status: Ordered omeprazole 40 mg oral enteric coated capsule 1 capsule = 40 mg, By Mouth, 2 times a day, # 180 capsule, 0 Refills, Maintenance, 04/30/20 15:34:00 EDT, EC Capsule, [facility] # 50, 175, cm, 03/26/20 10:55:00 EDT, Height, 120.2, kg, 03/24/19 19:11:00 EDT, Dry Weight Start Date: 04/30/20 Status: Ordered oxyCODONE 5 mg oral tablet 5 mg, 1, tablet, By Mouth, 2 times a day, PRN, PRN for severe pain, # 20 tablet, Refills 0, Tot. Refills 0, Maintenance, as needed for severe pain, 05/15/20 13:44:00 EDT, Route to Pharmacy Electronically, [facility] # [facility], 175, cm, 05/03/20 11:22:0... Start Date: 05/15/20 Status: Ordered right cock-up splint right cock-up [...] 11/21/19 12:14:00 EST, Route to Pharmacy Electronically, [facility] # [facility], 175, cm, 11/17/19 12:58:00 [...] 11, TAKE ONE TABLET BY MOUTH EVERY EVENING,[facility] # [facility] Start Date: 08/10/19 Status: [...] 2 Active Gastric ulcer(Confirmed) Active Gout(Confirmed) Active skilled nursing (current) use of anticoagulants(Confirmed) Active Hyperlipidemia(Confirmed) Active [...]
--- OUTSIDE RECORDS SUMMARY | 2023-07-25 02:16 | XMS_ITS | Continuity of Care Document ---
Author Name Unknown Organization [facility] Address [address] [place] [address]- Care Team Providers Care Lace Roller Operator Name Role Phone Yves JHAVERI, Héctor Gooden Primary Care Physician [phone] Encounter [facility] Date(s): 10/26/20 - 11/25/20 [facility] Adult [address] [place] [address]- Allergies, Adverse Reactions, Alerts Substance Reaction Severity [...] Mccall 2Result Comment: [06/24/2017] HIGH DOSE LOT [id number] EXP 01-05-18 BIG Y 3Admin Note: [facility] [...] 01/23/21 8:11:00 EDT, 08/07/20 15:40:00 EDT, Tablet, [facility] # [facility], 175, cm, 05/03/20 11:22:00EDT, [...] 10/30/20 13:22:00 EST, Route to Pharmacy Electronically, [facility] # [facility], 175, cm, 08/09/20 11:32:0... [...] 2 Active Gastric ulcer(Confirmed) Active Gout(Confirmed) Active residential (current) use of anticoagulants(Confirmed) Active Hyperlipidemia(Confirmed) Active [...]
--- OUTSIDE RECORDS SUMMARY | 2023-07-25 02:16 | XMS_ITS | Continuity of Care Document ---
Author Name Unknown Organization [facility] Address [address] [place] [address]- Care Team Providers Care Wastewater Treatment Engineer Name Role Phone Yves JHAVERI, Héctor Gooden Primary Care Physician Encounter [facility] Date(s): 10/23/20 - 11/22/20 [facility] Adult [address] [place] [address]- Allergies, Adverse Reactions, Alerts Substance Reaction Severity [...] Mccall 2Result Comment: [06/24/2017] HIGH DOSE LOT [id number] EXP 01-05-18 BIG Y 3Admin Note: Received at the [facility] 4Admin Note: GIVEN AT [facility]ENTER [facility] [...] 01/23/21 8:11:00 EDT, 08/07/20 15:40:00 EDT, Tablet, [facility] # [facility], 175, cm, 05/03/20 11:22:00EDT, [...] 10/30/20 13:22:00 EST, Route to Pharmacy Electronically, [facility] # [facility], 175, cm, 08/09/20 11:32:0... [...]
--- OUTSIDE RECORDS SUMMARY | 2023-07-25 02:16 | XMS_ITS | Continuity of Care Document ---
Author Name Unknown Organization [facility] Jay Jay jeanette Address [address] [place] [address] ve [address] [place] [address]- Care Team Providers Care Improvement Rn Name Role Phone Yves JHAVERI, Héctor Gooden Primary Care Physician [phone] Encounter [facility] Date(s): 11/22/19 - 02/08/20 [facility] [address] [place] [address]- [facility] Attending Physician: Carlos JHAVERI, Omid Erwin Referring Physician: Dana SECRETARY OF STATE, Gabby Allergies, Adverse Reactions, Alerts Substance Reaction Severity [...] Mccall 2Result Comment: [06/24/2017] HIGH DOSE LOT [id number] EXP 01-05-18 TRAV Duarte 3Admin Note: Received at the [facility] 4Admin Note: GIVEN AT [facility] PER PATIENT. 5Early/Late Reason: Nursing Judgment 6Admin Note: GIVEN IN [facility]IC [facility] Medications allopurinol 300 mg oral tablet 1, tablet, By Mouth, Daily, # 90 Unknown, Refills 1, Tot. Refills 1, Maintenance, 02/06/20 15:38:00EDT, Route to Pharmacy Electronically, [facility] # [facility], 175, cm, 11/17/19 12:58:00 EST, Height,120.2, kg, 03/24/19 19:11:00 EDT, Dry Weight Start Date: 02/06/20 Status: Ordered aspirin 81 mg oral delayed [...] capsule, 5 Refills, Maintenance, 11/10/19 5:19:00 EST, [facility] # [facility], 175, cm, 09/13/19 14:21:00 EST, Height, 120.2, kg, 03/24/19 19:11:00 EDT, Dry Weight Start Date: 11/10/19 Status: Ordered escitalopram 20 mg oral tablet 1 tablet, By Mouth, Daily, # 30 Unknown, 5 Refills, Maintenance, 12/19/19 16:54:00 EDT, [facility] # 50, 175, cm, 11/17/19 12:58:00 EST, Height, 120.2, kg, 03/24/19 19:11:00 EDT, Dry Weight Start Date: 12/19/19 Status: Ordered fenofibrate 160 mg oral tablet 1 tablet, By Mouth, Daily, # 30 Unknown, 6 Refills, Maintenance, 01/03/20 11:54:00 EDT, [facility] # 50, 175, cm, 11/17/19 12:58:00 EST, Height, 120.2, kg, 03/24/19 19:11:00 EDT, Dry Weight Start Date: 01/03/20 Status: Ordered Flomax 0.4 mg oral capsule 0.4 mg, By Mouth, Daily, # 90 capsule, Refills 3, Tot. Refills 3, Maintenance, 05/11/19 10:36:31 EDT, Route to Pharmacy Electronically, [id number], [facility] # 50 Start Date: 05/11/19 Status: Ordered furosemide 20 mg oral tablet 1, tablet, By Mouth, Daily, # 30 tablet, Refills 5, Tot. Refills 5, Soft Stop, 11/21/19 12:13:00 EST, Route to Pharmacy Electronically, [facility] # [facility], 175, cm, 11/17/19 12:58:00 EST, Height, 120.2, kg, 03/24/19 19:11:00 EDT, Dry Weight Start Date: 11/21/19 Status: Ordered gabapentin 300 mg oral capsule See Instructions, # 180 Unknown, Refills 3 Tot. Refills 3, TAKE ONE CAPSULE BY MOUTH TWICE A DAY, [facility] # 50 Start Date: 08/29/19 [...] 08/07/20 15:40:00 EDT, 02/24/20 11:36:00 EDT, Tablet, [facility] # 50, 175, cm, 11/17/19 [...] tablet = 400 mg, By Mouth, Daily, # 100 tablet, 3 Refills, Acute 02/02/21 12:32:00 EDT, 02/03/20 12:31:00 EDT, [facility] # 50, 175, cm, 11/17/19 12:58:00 EST, Height, 120.2, kg, 03/24/19 19:11:00 EDT, Dry Weight Start Date: 02/03/20 Stop Date: 02/02/21 Status: Ordered omeprazole 40 mg oral enteric coated capsule 1 capsule = 40 mg, By Mouth, 2 times a day, # 180 capsule, 3 Refills, Maintenance, 05/11/19 10:37:04 EDT, EC Capsule Start Date: 05/11/19 Status: Ordered right cock-up splint right cock-up [...] 11/21/19 12:14:00 EST, Route to Pharmacy Electronically, [facility] # [facility], 175, cm, 11/17/19 12:58:00 [...] 11, TAKE ONE TABLET BY MOUTH EVERY EVENING,[facility] # [facility] Start Date: 08/10/19 Status: [...] Active Gastric ulcer(Confirmed) Active Gout(Confirmed) Active [employer] continuous churn (current) use of anticoagulants(Confirmed) Active Hyperlipidemia(Confirmed) Active [...]
--- OUTSIDE RECORDS SUMMARY | 2023-07-25 02:16 | XMS_ITS | Continuity of Care Document ---
Author Name Unknown Organization [facility] Address [address] [place] [address]- Care Team Providers Care Teacher Adventure Education Name Role Phone Héctor Marinelli MD Primary Care Physician [phone] [place] [facility] [place] 05/03/20 - 05/10/20 [facility] Adult [address] [place] [address]- [facility] Attending Physician: Héctor Marinelli MD Allergies, Adverse [...] Mccall 2Result Comment: [06/24/2017] HIGH DOSE LOT [id number] EXP 01-05-18 TRAV Duarte 3Admin Note: Received at the [facility] 4Admin Note: GIVEN AT [facility] PER PATIENT. 5Early/Late Reason: Nursing Judgment 6Admin Note: GIVEN IN CLINIC SHAM Medications allopurinol 300 mg oral tablet 1, tablet, By Mouth, Daily, # 90 Unknown, Refills 1, Tot. Refills 1, Maintenance, 02/06/20 15:38:00EDT, Route to Pharmacy Electronically, [facility] # [facility], 175, cm, 11/17/19 12:58:00 EST, Height,120.2, kg, 03/24/19 19:11:00 EDT, Dry Weight Start Date: 02/06/20 Status: Ordered aspirin 81 mg oral tablet, chewable 1 tablet, By Mouth, Daily in AM, # 90 Unknown, 3 Refills, Maintenance, 04/02/20 16:25:00 EDT, [facility], 175, cm, 03/26/20 [...] capsule, 5 Refills, Maintenance, 11/10/19 5:19:00 EST, [facility] # [facility], 175, cm, 09/13/19 14:21:00 EST, Height, 120.2, kg, 03/24/19 19:11:00 EDT, Dry Weight Start Date: 11/10/19 Status: Ordered escitalopram 20 mg oral tablet 1 tablet, By Mouth, Daily, # 30 Unknown, 5 Refills, Maintenance, 12/19/19 16:54:00 EDT, [facility] # [facility], 175, cm, 11/17/19 12:58:00 EST, Height, 120.2, kg, 03/24/19 19:11:00 EDT, Dry Weight Start Date: 12/19/19 Status: Ordered fenofibrate 160 mg oral tablet 1 tablet, By Mouth, Daily, # 30 Unknown, 6 Refills, Maintenance, 01/03/20 11:54:00 EDT, [facility] # [facility], 175, cm, 11/17/19 12:58:00 [...] 11/21/19 12:13:00 EST, Route to Pharmacy Electronically, [facility] # [facility], 175, cm, 11/17/19 12:58:00 EST, Height, 120.2, kg, 03/24/19 19:11:00 EDT, Dry Weight Start Date: 11/21/19 Status: Ordered gabapentin 300 mg oral capsule See Instructions, # 180 Unknown, Refills 3 Tot. Refills 3, TAKE ONE CAPSULE BY MOUTH TWICE A DAY, [facility] # [facility] Start Date: 08/29/19 Status: [...] 08/07/20 15:40:00 EDT, 02/24/20 11:36:00 EDT, Tablet, [facility] # [facility], 175, cm, 11/17/19 12:58:00 EST, Height, 120.2, kg, 03/24/19 19:11:00 EDT, Dry... Start Date: 02/24/20 Stop Date: 08/07/20 Status: Ordered magnesium oxide 400 mg oral tablet 1 tablet = 400 mg, By Mouth, Daily, # 100 tablet, 3 Refills, Acute 02/02/21 12:32:00 EDT, 02/03/20 12:31:00 EDT, [facility] # [facility], 175, cm, 11/17/19 12:58:00 EST, Height, 120.2, kg, 03/24/19 19:11:00 EDT, Dry Weight Start Date: 02/03/20 Stop Date: 02/02/21 Status: Ordered omeprazole 40 mg oral enteric coated capsule 1 capsule = 40 mg, By Mouth, 2 times a day, # 180 capsule, 0 Refills, Maintenance, 04/30/20 15:34:00 EDT, EC Capsule, [facility] # [facility], 175, cm, 03/26/20 10:55:00 EDT, Height, 120.2, kg, 03/24/19 19:11:00 EDT, Dry Weight Start Date: 04/30/20 Status: Ordered oxyCODONE 5 mg oral tablet 5 mg, 1, tablet, By Mouth, 2 times a day, PRN, PRN for severe pain, # 10 tablet, Refills 0, Tot. Refills 0, Maintenance, as needed for severe pain, 05/04/20 16:34:00 EDT, Route to Pharmacy Electronically, [facility] # [facility], 175, cm, 05/03/20 11:22:0... Start Date: 05/04/20 Status: Ordered right cock-up splint right cock-up [...] 11/21/19 12:14:00 EST, Route to Pharmacy Electronically, [facility], 175, cm, 11/17/19 12:58:00 [...] 11, TAKE ONE TABLET BY MOUTH EVERY EVENING,[facility] Start Date: 08/10/19 Status: [...] 2 Active Gastric ulcer(Confirmed) Active Gout(Confirmed) Active [facility] (current) use of anticoagulants(Confirmed) Active Hyperlipidemia(Confirmed) Active [...] LS spine xray 3surgery 10/17 Dr. Orellana Vital Signs Most recent to oldest [Reference Range]: 1 Height 175 cm (05/03/20 11:22 AM) Oxygen Saturation [94-100 %] 97 % (05/03/20 11:22 AM) Pulse Rate [55-90 bpm] 62 bpm (05/03/20 11:22 AM) Blood Pressure [90-138/55-84 mm Hg] 128/ 64mm Hg (05/03/20 11:22 AM) Respiratory Rate [16-30 br/min] 12 br/mi n *L* (05/03/20 11:22 AM) Temperature [96.8-100.4 DegF] 97.8 DegF (05/03/20 11:22 AM) Mode of Delivery (Oxygen) Room air (05/03/20 11:22 AM) Blood pressure sites Arm, right (05/03/20 11:22 AM) Temperature Route Oral (05/03/20 11:22 AM) Social History Social History Type Response Smoking Status Current every day ganesh morel entered on: 11/04/17 Sex
--- OUTSIDE RECORDS SUMMARY | 2023-07-25 02:17 | XMS_ITS | Continuity of Care Document ---
Author Name Unknown Organization [facility] Jay Jay jeanette Address [address] [place] [address] Dr [address] [place] [address]- Care Team Providers Care Chief Knowledge Officer Name Role Phone Yves JHAVERI, Héctor Gooden Primary Care Physician Encounter [facility] Date(s): 03/26/20 - 04/02/20 [facility] [address] [place] [address]- [facility] Attending Physician: Omid Gonzalez MD Referring Physician: Héctor Marinelli MD Allergies, [...] Mccall 2Result Comment: [06/24/2017] HIGH DOSE LOT [id number] EXP 01-05-18 BIG Y 3Admin Note: Received at the [facility] 4Admin Note: GIVEN AT [facility] PER PATIENT. 5Early/Late Reason: Nursing Judgment 6Admin Note: GIVEN IN CLINIC [facility] Medications allopurinol 300 mg oral tablet 1, tablet, By Mouth, Daily, # 90 Unknown, Refills 1, Tot. Refills 1, Maintenance, 02/06/20 15:38:00EDT, Route to Pharmacy Electronically, [facility] # [facility], 175, cm, 11/17/19 12:58:00 EST, Height,120.2, kg, 03/24/19 19:11:00 EDT, Dry Weight Start Date: 02/06/20 Status: Ordered aspirin 81 mg oral tablet, chewable 1 tablet, By Mouth, Daily in AM, # 90 Unknown, 3 Refills, Maintenance, 04/02/20 16:25:00 EDT, [facility], [facility], cm, 03/26/20 10:55:00 EDT, [...] capsule, 5 Refills, Maintenance, 11/10/19 5:19:00 EST, [facility] # [facility], 175, cm, 09/13/19 14:21:00 EST, Height, 120.2, kg, 03/24/19 19:11:00 EDT, Dry Weight Start Date: 11/10/19 Status: Ordered escitalopram 20 mg oral tablet 1 tablet, By Mouth, Daily, # 30 Unknown, 5 Refills, Maintenance, 12/19/19 16:54:00 EDT, [facility] # [facility], 175, cm, 11/17/19 12:58:00 EST, Height, 120.2, kg, 03/24/19 19:11:00 EDT, Dry Weight Start Date: 12/19/19 Status: Ordered fenofibrate 160 mg oral tablet 1 tablet, By Mouth, Daily, # 30 Unknown, 6 Refills, Maintenance, 01/03/20 11:54:00 EDT, [facility] # [facility], 175, cm, 11/17/19 12:58:00 EST, Height, 120.2, kg, 03/24/19 19:11:00 EDT, Dry Weight Start Date: 01/03/20 Status: Ordered Flomax 0.4 mg oral capsule 0.4 mg, By Mouth, Daily, # 90 capsule, Refills 3, Tot. Refills 3, Maintenance, 05/11/19 10:36:31 EDT, Route to Pharmacy Electronically, [id number], [facility] # [facility] Start Date: 05/11/19 Status: Ordered furosemide 20 mg oral tablet 1, tablet, By Mouth, Daily, # 30 tablet, Refills 5, Tot. Refills 5, Soft Stop, 11/21/19 12:13:00 EST, Route to Pharmacy Electronically, [facility] # [facility], 175, cm, 11/17/19 12:58:00 EST, Height, 120.2, kg, 03/24/19 19:11:00 EDT, Dry Weight Start Date: 11/21/19 Status: Ordered gabapentin 300 mg oral capsule See Instructions, # 180 Unknown, Refills 3 Tot. Refills 3, TAKE ONE CAPSULE BY MOUTH TWICE A DAY, [facility] # [facility] Start Date: [...] 08/07/20 15:40:00 EDT, 02/24/20 11:36:00 EDT, Tablet, [facility] # [facility], 175, cm, 11/17/19 12:58:00 EST, Height, 120.2, kg, 03/24/19 19:11:00 EDT, Dry... Start Date: 02/24/20 Stop Date: 08/07/20 Status: Ordered magnesium oxide 400 mg oral tablet 1 tablet = 400 mg, By Mouth, Daily, # 100 tablet, 3 Refills, Acute 02/02/21 12:32:00 EDT, 02/03/20 12:31:00 EDT, [facility] # [facility], 175, cm, 11/17/19 12:58:00 [...] 11/21/19 12:14:00 EST, Route to Pharmacy Electronically, [facility] # [facility], 175, cm, 11/17/19 12:58:00 [...] 11, TAKE ONE TABLET BY MOUTH EVERY EVENING,[facility] # [facility] Start Date: 08/10/19 Status: [...] 2 Active Gastric ulcer(Confirmed) Active Gout(Confirmed) Active [facility] (current) use of anticoagulants(Confirmed) Active Hyperlipidemia(Confirmed) Active [...] oldest [Reference Range]: 1 Height 175 cm (03/26/20 10:55 AM) Weight 107 kg (03/26/20 10:55 AM) Body Mass Index [18.5-24.99] 34.94 *>HHI* (03/26/20 10:55 AM) Social History Social History Type Response Smoking Status Current every day ganesh morel entered on: 11/04/17 Sex
--- OUTSIDE RECORDS SUMMARY | 2023-07-25 02:17 | XMS_ITS | Continuity of Care Document ---
Author Name Unknown Organization [facility] Cal Cedric lt Address [address] [place] [address]- Care Team Providers Care Narcotics Investigator Name Role Phone Yves JHAVERI, Héctor Gooden Primary Care Physician [phone] [place] [facility] [place]/11/20 - 05/11/20 [facility] Adult [address] [place] [address]- [facility] Allergies, Adverse Reactions, Alerts Substance Reaction Severity [...] Mccall 2Result Comment: [06/24/2017] HIGH DOSE LOT [id number] EXP 01-05-18 TRAV Y 3Admin Note: Received at the [facility] 4Admin Note: GIVEN AT [facility]ENTER [facility] PER PATIENT. 5Early/Late Reason: Nursing Judgment 6Admin Note: GIVEN IN CLINIC SHAM Medications allopurinol 300 mg oral tablet 1, tablet, By Mouth, Daily, # 90 Unknown, Refills 1, Tot. Refills 1, Maintenance, 02/06/20 15:38:00EDT, Route to Pharmacy Electronically, [facility] # [facility], 175, cm, 11/17/19 12:58:00 EST, Height,120.2, kg, 03/24/19 19:11:00 EDT, Dry Weight Start Date: 02/06/20 Status: Ordered aspirin 81 mg oral tablet, chewable 1 tablet, By Mouth, Daily in AM, # 90 Unknown, 3 Refills, Maintenance, 04/02/20 16:25:00 EDT, [facility], 175, cm, 03/26/20 10:55:00 EDT, [...] capsule, 5 Refills, Maintenance, 11/10/19 5:19:00 EST, [facility] # [facility], 175, cm, 09/13/19 14:21:00 EST, Height, 120.2, kg, 03/24/19 19:11:00 EDT, Dry Weight Start Date: 11/10/19 Status: Ordered escitalopram 20 mg oral tablet 1 tablet, By Mouth, Daily, # 30 Unknown, 5 Refills, Maintenance, 12/19/19 16:54:00 EDT, [facility] # 50, 175, cm, 11/17/19 12:58:00 EST, Height, 120.2, kg, 03/24/19 19:11:00 EDT, Dry Weight Start Date: 12/19/19 Status: Ordered fenofibrate 160 mg oral tablet 1 tablet, By Mouth, Daily, # 30 Unknown, 6 Refills, Maintenance, 01/03/20 11:54:00 EDT, [facility] # [facility], [...] 11/21/19 12:13:00 EST, Route to Pharmacy Electronically, [facility] # [facility], 175, cm, 11/17/19 12:58:00 EST, Height, 120.2, kg, 03/24/19 19:11:00 EDT, Dry Weight Start Date: 11/21/19 Status: Ordered gabapentin 300 mg oral capsule See Instructions, # 180 Unknown, Refills 3 Tot. Refills 3, TAKE ONE CAPSULE BY MOUTH TWICE A DAY, [facility] # 50 Start Date: [...] 08/07/20 15:40:00 EDT, 02/24/20 11:36:00 EDT, Tablet, [facility] # 50, 175, cm, 11/17/19 12:58:00 EST, Height, 120.2, kg, 03/24/19 19:11:00 EDT, Dry... Start Date: 02/24/20 Stop Date: 08/07/20 Status: Ordered magnesium oxide 400 mg oral tablet 1 tablet = 400 mg, By Mouth, Daily, # 100 tablet, 3 Refills, Acute 02/02/21 12:32:00 EDT, 02/03/20 12:31:00 EDT, [facility] # 50, 175, cm, 11/17/19 12:58:00 EST, Height, 120.2, kg, 03/24/19 19:11:00 EDT, Dry Weight Start Date: 02/03/20 Stop Date: 02/02/21 Status: Ordered omeprazole 40 mg oral enteric coated capsule 1 capsule = 40 mg, By Mouth, 2 times a day, # 180 capsule, 0 Refills, Maintenance, 04/30/20 15:34:00 EDT, EC Capsule, [facility] # 50, 175, cm, 03/26/20 10:55:00 EDT, Height, 120.2, kg, 03/24/19 19:11:00 EDT, Dry Weight Start Date: 04/30/20 Status: Ordered oxyCODONE 5 mg oral tablet 5 mg, 1, tablet, By Mouth, 2 times a day, PRN, PRN for severe pain, # 10 tablet, Refills 0, Tot. Refills 0, Maintenance, as needed for severe pain, 05/04/20 16:34:00 EDT, Route to Pharmacy Electronically, [facility] # [facility], 175, cm, 05/03/20 11:22:0... [...] 11/21/19 12:14:00 EST, Route to Pharmacy Electronically, [facility] # [facility], 175, cm, 11/17/19 12:58:00 [...] 11, TAKE ONE TABLET BY MOUTH EVERY EVENING,[facility] # 50 Start Date: 08/10/19 Status: [...]
--- OUTSIDE RECORDS SUMMARY | 2023-07-25 02:17 | XMS_ITS | Continuity of Care Document ---
Author Name Unknown Organization [facility] Cal Cedric lt Address [address] [place] [address]- Care Team Providers Care Loss Prevention And Safety Manager Name Role Phone Yves JHAVERI, Héctor Gooden Primary Care Physician [phone] Encounter [facility] [place] Date(s): 09/05/20 - 10/05/20 [facility] Adult [address] [place] [address]- Allergies, Adverse Reactions, Alerts Substance Reaction Severity [...] Mccall 2Result Comment: [06/24/2017] HIGH DOSE LOT [id number] EXP 01-05-18 TRAV Y 3Admin Note: Received at the [facility] 4Admin Note: GIVEN AT [facility]ENTER [facility] PER PATIENT. 5Early/Late Reason: Nursing Judgment 6Admin Note: GIVEN IN CLINIC SHAM Medications allopurinol 300 mg oral tablet 1, tablet, By Mouth, Daily, # 90 Unknown, Refills 1, Tot. Refills 1, Maintenance, 07/23/20 12:11:00EDT, Route to Pharmacy Electronically, [facility] # [facility], 175, cm, 05/03/20 [...] capsule, 5 Refills, Maintenance, 05/23/20 13:35:00 EDT, [facility] # [facility], 175, cm, 05/03/20 11:22:00 EDT, Height, 120.2, kg, 03/24/19 19:11:00 EDT, Dry Weight Start Date: 05/23/20 Status: Ordered escitalopram 20 mg oral tablet 1 tablet, By Mouth, Daily, # 30 Unknown, 5 Refills, Maintenance, 05/24/20 22:17:00 EDT, [facility] # [facility], 175, cm, 05/03/20 [...] 08/14/20 12:55:00 EST, Route to Pharmacy Electronically, [facility] # [facility], 175, cm, 08/09/20 11:32:00 EDT, Height, 120.2, kg, ... Start Date: 08/14/20 Status: Ordered Gold Murguia See Instructions, apply to affected area as needed, 0 Refills, Maintenance, 03/24/19 13:08:58 EDT Start Date: 03/24/19 Status: Ordered lactobacillus acidophilus oral capsule 1 capsule, By Mouth, Daily, # 60 capsule, 0 Refills, Maintenance, 05/30/20 8:54:00 EDT, Capsule, [facility] # [facility], 1 capsule By Mouth [...] 01/23/21 8:11:00 EDT, 08/07/20 15:40:00 EDT, Tablet, [facility] # 50, 175, cm, 05/03/20 11:22:00EDT, Height, 120.2, kg, 03/24/19 19:11:00 EDT, Dry... Start Date: 08/07/20 Stop Date: 01/23/21 Status: Ordered omeprazole 40 mg oral enteric coated capsule 1 capsule = 40 mg, By Mouth, 2 times a day, # 180 capsule, 0 Refills, Maintenance, 07/23/20 12:11:00 EDT, EC Capsule, [facility] # 50, 175, cm, 05/03/20 11:22:00 EDT, Height, 120.2, kg, 03/24/19 19:11:00 EDT, Dry Weight Start Date: 07/23/20 Status: Ordered oxyCODONE 5 mg oral tablet 5 mg, 1, tablet, By Mouth, 2 times a day, PRN, PRN for severe pain, # 20 tablet, Refills 0, Tot. Refills 0, Maintenance, as needed for severe pain, 09/05/20 16:21:00 EST, Route to Pharmacy Electronically, [facility] # 50, 175, cm, 08/09/20 11:32:0... [...] 05/23/20 13:35:00 EDT, Route to Pharmacy Electronically, [facility] # 50, 175, cm, 05/03/20 11:22:00 [...] 11 Refills, Soft Stop, 07/17/20 13:47:00 EDT, [facility] # 50, 175, cm, 05/03/20 11:22:00 [...] 2 Active Gastric ulcer(Confirmed) Active Gout(Confirmed) Active long-term (current) use of anticoagulants(Confirmed) Active Hyperlipidemia(Confirmed) Active [...]
--- OUTSIDE RECORDS SUMMARY | 2023-07-25 02:17 | XMS_ITS | Continuity of Care Document ---
Author Name Unknown Organization [facility] Cal Cedric lt Address [address] [place] [address]- Care Team Providers Care Lay Brother Name Role Phone Yves JHAVERI, Héctor Gooden Primary Care Physician [phone] Encounter [facility] Date(s): 11/17/19 - 11/27/19 [facility] Adult [address] [place] [address]- [facility] Attending Physician: Admtr, Ar8 Allergies, Adverse Reactions, [...] Mccall 2Result Comment: [06/24/2017] HIGH DOSE LOT [id number] EXP 01-05-18 BIG Y 3Admin Note: Received at the [facility] 4Admin Note: GIVEN AT [facility]ENTER [facility] PER PATIENT. 5Early/Late Reason: Nursing Judgment 6Admin Note: GIVEN IN CLINIC SHAM Medications allopurinol 300 mg oral tablet See Instructions, # 90 Unknown, Refills 1 Tot. Refills 1, TAKE ONE TABLET BY MOUTH EVERY DAY, [facility] # 50 Start Date: 08/10/19 [...] capsule, 5 Refills, Maintenance, 11/10/19 5:19:00 EST, [facility] # [facility], 175, cm, 09/13/19 [...] 05/11/19 10:36:31 EDT, Route to Pharmacy Electronically, [id number], [facility] # 50 Start Date: 05/11/19 Status: Ordered furosemide 20 mg oral tablet 1, tablet, By Mouth, Daily, # 30 tablet, Refills 5, Tot. Refills 5, Soft Stop, 11/21/19 12:13:00 EST, Route to Pharmacy Electronically, [facility] # 50, 175, cm, 11/17/19 12:58:00 EST, Height, 120.2, kg, 03/24/19 19:11:00 EDT, Dry Weight Start Date: 11/21/19 Status: Ordered gabapentin 300 mg oral capsule See Instructions, # 180 Unknown, Refills 3 Tot. Refills 3, TAKE ONE CAPSULE BY MOUTH TWICE A DAY, [facility] # 50 Start Date: [...] 11/18/19 11:14:00 EST, Route to Pharmacy Electronically, [facility] # [facility], Partial fill upon patient [...] 11/21/19 12:14:00 EST, Route to Pharmacy Electronically, [facility] # 50, 175, cm, 11/17/19 12:58:00 [...] 11, TAKE ONE TABLET BY MOUTH EVERY EVENING,[facility] # 50 Start Date: 08/10/19 Status: [...] 2 Active Gastric ulcer(Confirmed) Active Gout(Confirmed) Active [facility] (current) use of anticoagulants(Confirmed) Active Hyperlipidemia(Confirmed) Active [...]
--- OUTSIDE RECORDS SUMMARY | 2023-07-25 02:17 | XMS_ITS | Continuity of Care Document ---
Author Name Unknown Organization [facility] Address Unknown Care Team Providers Care Press Reader Name Role Phone Not on Staff, PCP Primary Care Physician Unavail able [place] [facility] [place] [facility] Attending Physician: Clarissa Moore Admitting Physician: Clarissa Moore Referring Physician: AdmtrClarissa Allergies, Adverse Reactions, Alerts Substance Reaction Severity Status morphine 1 Active quinine rash Active sulfa drugs rash Active cyclobenzaprine 2 Active levoFLOXacin 3 Active penicillins 4 sob [...] Mccall 2Result Comment: [06/24/2017] HIGH DOSE LOT [id number] EXP 01-05-18 BIG Y 3Admin Note: Received [...] 2 Active Gastric ulcer(Confirmed) Active 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
--- OUTSIDE RECORDS SUMMARY | 2023-07-25 02:17 | XMS_ITS | Continuity of Care Document ---
Author Name Unknown Organization [facility] Rajendra Mccall Cedric lt Address [address] [place] [address]- Care Team Providers Care Document Design Specialist Name Role Phone Not on Staff, PCP Primary Care Physician Unavail able Encounter [facility] Date(s): 11/21/20 - 12/21/20 [facility] Adult [address] [place] [address]- Allergies, Adverse Reactions, Alerts Substance Reaction Severity [...] Mccall 2Result Comment: [06/24/2017] HIGH DOSE LOT [id number] EXP 01-05-18 BIG Y 3Admin Note: Received at the [facility] 4Admin Note: GIVEN AT CENTER [...] 01/23/21 8:11:00 EDT, 08/07/20 15:40:00 EDT, Tablet, [facility] # [facility], 175, cm, 05/03/20 11:22:00EDT, [...] 10/30/20 13:22:00 EST, Route to Pharmacy Electronically, [facility] # [facility], 175, cm, 08/09/20 11:32:0... [...]
--- OUTSIDE RECORDS SUMMARY | 2023-07-25 02:17 | XMS_ITS | Continuity of Care Document ---
Author Name Unknown Organization [facility] Cedric lt Address [address] [place] [address]- Care Team Providers Care Pattern Gater Name Role Phone Yves JHAVERI, Héctor Gooden Primary Care Physician En[facility] [place] Date(s): 05/29/20 - 06/28/20 [facility] Adult [address] [place] [address]- [facility] Allergies, Adverse Reactions, Alerts Substance Reaction Severity Status morphine 1 Active quinine rash Active sulfa drugs rash Active penicillins 2 sob Active cyclobenzaprine 3 Active levoFLOXacin 4 Active [...] Mccall 2Result Comment: [06/24/2017] HIGH DOSE LOT [id number] EXP 01-05-18 TRAV Y 3Admin Note: Received at the [facility] 4Admin Note: GIVEN AT [facility]ENTER [facility] PER PATIENT. 5Early/Late Reason: Nursing Judgment 6Admin Note: GIVEN IN CLINIC SHAM Medications allopurinol 300 mg oral tablet 1, tablet, By Mouth, Daily, # 90 Unknown, Refills 1, Tot. Refills 1, Maintenance, 02/06/20 15:38:00EDT, Route to Pharmacy Electronically, [facility], 175, cm, 11/17/19 [...] capsule, 5 Refills, Maintenance, 05/23/20 13:35:00 EDT, [facility] # [facility], 175, cm, 05/03/20 11:22:00 EDT, Height, 120.2, kg, 03/24/19 19:11:00 EDT, Dry Weight Start Date: 05/23/20 Status: Ordered escitalopram 20 mg oral tablet 1 tablet, By Mouth, Daily, # 30 Unknown, 5 Refills, Maintenance, 05/24/20 22:17:00 EDT, [facility] # [facility], 175, cm, 05/03/20 11:22:00 EDT, Height, 120.2, kg, 03/24/19 19:11:00 EDT, Dry Weight Start Date: 05/24/20 Status: Ordered fenofibrate 160 mg oral tablet 1 tablet, By Mouth, Daily, # 30 Unknown, 6 Refills, Maintenance, 01/03/20 11:54:00 EDT, [facility] # [facility], 175, cm, 11/17/19 12:58:00 EST, Height, 120.2, kg, 03/24/19 19:11:00 EDT, Dry Weight Start Date: 01/03/20 Status: Ordered Flomax 0.4 mg oral capsule 0.4 mg, By Mouth, Daily, # 90 capsule, Refills 3, Tot. Refills 3, Maintenance, 04/16/20 7:27:00 EDT, Route to Pharmacy Electronically, [facility] # [facility], 175, cm, 03/26/20 10:55:00 EDT, Height, 120.2, kg, 03/24/19 19:11:00 EDT, Dry Weight Start Date: 04/16/20 Status: Ordered furosemide 20 mg oral tablet 1, tablet, By Mouth, Daily, # 30 Unknown, Refills 5, Tot. Refills 0, Maintenance, 05/24/20 22:18:00EDT, Route to Pharmacy Electronically, [facility] # [facility], 175, cm, 05/03/20 11:22:00 EDT, Height,120.2, kg, 03/24/19 19:11:00 EDT, Dry Weight Start Date: 05/24/20 Status: Ordered gabapentin 300 mg oral capsule See Instructions, # 180 Unknown, Refills 3 Tot. Refills 3, TAKE ONE CAPSULE BY MOUTH TWICE A DAY, [facility] # 50 Start Date: 08/29/19 Status: Ordered Gold Murguia See Instructions, apply to affected area as needed, 0 Refills, Maintenance, 03/24/19 13:08:58 EDT Start Date: 03/24/19 Status: Ordered lactobacillus acidophilus oral capsule 1 capsule, By Mouth, Daily, # 60 capsule, 0 Refills, Maintenance, 05/30/20 8:54:00 EDT, Capsule, [facility] # [facility], 1 capsule By Mouth [...] 08/07/20 15:40:00 EDT, 02/24/20 11:36:00 EDT, Tablet, [facility] # 50, 175, cm, 11/17/19 12:58:00 EST, Height, 120.2, kg, 03/24/19 19:11:00 EDT, Dry... Start Date: 02/24/20 Stop Date: 08/07/20 Status: Ordered magnesium oxide 400 mg oral tablet See Instructions, TAKE ONE TABLET BY MOUTH EVERY DAY AT NOON, # 100 Unknown, 3 Refills, Acute 09/14/20 16:45:00 EST, 05/15/20 16:45:00 EDT, [facility] # 50, 175, cm, 05/03/20 11:22:00 EDT, Height, 120.2, kg, 03/24/19 19:11:00 EDT, Dry Weight Start Date: 05/15/20 Stop Date: 09/14/20 Status: Ordered omeprazole 40 mg oral enteric coated capsule 1 capsule = 40 mg, By Mouth, 2 times a day, # 180 capsule, 0 Refills, Maintenance, 04/30/20 15:34:00 EDT, EC Capsule, [facility] # 50, 175, cm, 03/26/20 10:55:00 EDT, Height, 120.2, kg, 03/24/19 19:11:00 EDT, Dry Weight Start Date: 04/30/20 Status: Ordered oxyCODONE 5 mg oral tablet 5 mg, 1, tablet, By Mouth, 2 times a day, PRN, PRN for severe pain, # 20 tablet, Refills 0, Tot. Refills 0, Maintenance, as needed for severe pain, 06/07/20 12:23:00 EDT, Route to Pharmacy Electronically, [facility] # [facility], 175, cm, 05/03/20 11:22:0... 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
--- OUTSIDE RECORDS SUMMARY | 2023-07-25 02:17 | XMS_ITS | Continuity of Care Document ---
Author Name Unknown Organization [facility] Cal Cedric lt Address [address] [place] [address]- Care Team Providers Care Bottle Gauger Name Role Phone Héctor Marinelli MD Primary Care Physician [place] [facility] [place]20 [facility] Adult [address] [place] [address]- Attending Physician: Héctor Marinelli MD Allergies, Adverse [...] Mccall 2Result Comment: [06/24/2017] HIGH DOSE LOT [id number] EXP 01-05-18 TRAV [place] 3Admin Note: Received at the [facility] 4Admin Note: GIVEN AT [facility]ENTER [facility] PER [...] Refills, Maintenance, 04/02/20 16:25:00 EDT, [facility], [facility], cm, 03/26/20 10:55:00 [...] 08/19/20 12:24:00 EST, 08/09/20 12:24:00 EDT, Capsule, [facility] # [facility], [...] 08/14/20 12:55:00 EST, Route to Pharmacy Electronically, [facility] # [facility], 175, cm, 08/09/20 11:32:00 EDT, Height, 120.2, kg, ... Start Date: 08/14/20 Status: Ordered Gold Murguia See Instructions, apply to affected area as needed, 0 Refills, Maintenance, 03/24/19 13:08:58 EDT Start Date: 03/24/19 Status: Ordered lactobacillus acidophilus oral capsule 1 capsule, By Mouth, Daily, # 60 capsule, 0 Refills, Maintenance, 05/30/20 8:54:00 EDT, Capsule, [facility] # [facility], 1 capsule By Mouth [...] 01/23/21 8:11:00 EDT, 08/07/20 15:40:00 EDT, Tablet, [facility] # [facility], 175, cm, 05/03/20 11:22:00EDT, Height, 120.2, kg, 03/24/19 19:11:00 EDT, Dry... Start Date: 08/07/20 Stop Date: 01/23/21 Status: Ordered magnesium oxide 400 mg oral tablet See Instructions, TAKE ONE TABLET BY MOUTH EVERY DAY AT NOON, # 100 Unknown, 3 Refills, Acute 09/14/20 16:45:00 EST, 05/15/20 16:45:00 EDT, [facility] # [facility], [...] 08/09/20 12:27:00 EDT, [facility] Electronically, [facility] 05/23/20 13:35:00 EDT, [facility] Electronically, [facility] [...] Active Gastric ulcer(Confirmed) Active Gout(Confirmed) Active [facility] (current) use of anticoagulants(Confirmed) Active Hyperlipidemia(Confirmed) Active [...] oldest [Reference Range]: 1 Height 175 cm (08/09/20 11:32 AM) Oxygen Saturation [94-100 %] 96 % (08/09/20 11:32 AM) Pulse Rate [55-90 bpm] 61 bpm (08/09/20 11:32 AM) Blood Pressure [90-138/55-84 mm Hg] 110/ 70mm Hg (08/09/20 11:32 AM) Temperature [96.8-100.4 DegF] 98 DegF (08/09/20 11:32 AM) Blood pressure sites Arm, right (08/09/20 11:32 AM) Temperature Route Oral (08/09/20 11:32 AM) Weight Obtained Via Standing scale (08/09/20 11:32 AM) Social History Social History Type Response Smoking Status Current every day ganesh morel entered on: 11/04/17 Sex
--- OUTSIDE RECORDS SUMMARY | 2023-07-25 02:17 | XMS_ITS | Continuity of Care Document ---
Author Name Unknown Organization [facility] Address [address] [place] [address]- Care Team Providers Care Physician Credentialing Specialist Name Role Phone Not on Staff, PCP Primary Care Physician Unavail able Encounter [facility] Date(s): 11/19/20 - 12/19/20 [facility] [address] [place] [address]- Attending Physician: Clarissa Moore Admitting Physician: Clarissa [...] Mccall 2Result Comment: [06/24/2017] HIGH DOSE LOT [id number] EXP 01-05-18 BIG Y 3Admin Note: Received [...] 01/23/21 8:11:00 EDT, 08/07/20 15:40:00 EDT, Tablet, [facility] # [facility], 175, cm, [...] 10/30/20 13:22:00 EST, Route to Pharmacy Electronically, [email or web address] # [facility], 175, cm, 08/09/20 11:32:0... [...]
--- OUTSIDE RECORDS SUMMARY | 2023-07-25 02:17 | XMS_ITS | Continuity of Care Document ---
Author Name Unknown Organization [facility] Cal Cedric lt Address [address] [place] [address]- Care Team Providers Care Filtration Plant Operator Name Role Phone Héctor Marinelli MD Primary Care Physician [place] [facility] [place] 11[place]08/20 [facility] Adult [address] [place] [address]- Attending Physician: Héctor Marinelli MD Allergies, Adverse [...] Mccall 2Result Comment: [06/24/2017] HIGH DOSE LOT [id number] EXP 01-05-18 BIG Y 3Admin Note: Received at the [facility] 4Admin Note: GIVEN AT [facility]ENTER [facility] PER [...] 10/30/20 13:22:00 EST, Route to Pharmacy Electronically, [facility] # [facility], 175, cm, 08/09/20 11:32:0... 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
--- OUTSIDE RECORDS SUMMARY | 2023-07-25 02:17 | XMS_ITS | Continuity of Care Document ---
Author Name Unknown Organization [facility] Cal Cedric lt Address [address] [place] [address]- Care Team Providers Care Wood Dowel Machine Operator Name Role Phone Yves JHAVERI, Héctor Gooden Primary Care Physician Encounter [facility] Date(s): 07/17/20 - 08/16/20 [facility] Adult [address] [place] [address]- Allergies, Adverse Reactions, Alerts Substance Reaction Severity [...] Mccall 2Result Comment: [06/24/2017] HIGH DOSE LOT [id number] EXP 01-05-18 TRAV Y 3Admin Note: Received at the [facility] 4Admin Note: GIVEN AT [facility]ENTER [facility] PER PATIENT. 5Early/Late Reason: Nursing Judgment 6Admin Note: GIVEN IN CLINIC SHAM Medications allopurinol 300 mg oral tablet 1, tablet, By Mouth, Daily, # 90 Unknown, Refills 1, Tot. Refills 1, Maintenance, 07/23/20 12:11:00EDT, Route to Pharmacy Electronically, [facility] # [facility], 175, cm, 05/03/20 11:22:00 [...] capsule, 5 Refills, Maintenance, 05/23/20 13:35:00 EDT, [facility] # 50, 175, cm, 05/03/20 11:22:00 EDT, Height, 120.2, kg, 03/24/19 19:11:00 EDT, Dry Weight Start Date: 05/23/20 Status: Ordered doxycycline hyclate 100 mg oral capsule 1 capsule = 100 mg, By Mouth, 2 times a day, for 10 days, # 20 capsule, 0 Refills, Acute 08/19/20 12:24:00 EST, 08/09/20 12:24:00 EDT, Capsule, [facility] # 50, 175, cm, 08/09/20 11:32:00 EDT, Height, 120.2, kg, 03/24/19 19:11:00 EDT, Dry Weight Start Date: 08/09/20 Stop Date: 08/19/20 Status: Ordered escitalopram 20 mg oral tablet 1 tablet, By Mouth, Daily, # 30 Unknown, 5 Refills, Maintenance, 05/24/20 22:17:00 EDT, [facility] # 50, 175, cm, 05/03/20 11:22:00 EDT, Height, 120.2, kg, 03/24/19 19:11:00 EDT, Dry Weight Start Date: 05/24/20 Status: Ordered fenofibrate 160 mg oral tablet 1 tablet, By Mouth, Daily, # 30 Unknown, 5 Refills, Maintenance, 07/17/20 7:50:00 EDT, [facility] # [...] 08/14/20 12:55:00 EST, Route to Pharmacy Electronically, [facility] # [facility], 175, cm, 08/09/20 11:32:00 EDT, Height, 120.2, kg, ... Start Date: 08/14/20 Status: Ordered Gold Murguia See Instructions, apply to affected area as needed, 0 Refills, Maintenance, 03/24/19 13:08:58 EDT Start Date: 03/24/19 Status: Ordered lactobacillus acidophilus oral capsule 1 capsule, By Mouth, Daily, # 60 capsule, 0 Refills, Maintenance, 05/30/20 8:54:00 EDT, Capsule, [facility] # 50, 1 capsule By Mouth [...] 01/23/21 8:11:00 EDT, 08/07/20 15:40:00 EDT, Tablet, [facility] # 50, 175, cm, 05/03/20 11:22:00EDT, Height, 120.2, kg, 03/24/19 19:11:00 EDT, Dry... Start Date: 08/07/20 Stop Date: 01/23/21 Status: Ordered magnesium oxide 400 mg oral tablet See Instructions, TAKE ONE TABLET BY MOUTH EVERY DAY AT NOON, # 100 Unknown, 3 Refills, Acute 09/14/20 16:45:00 EST, 05/15/20 16:45:00 EDT, [facility] # 50, 175, cm, 05/03/20 11:22:00 EDT, Height, 120.2, kg, 03/24/19 19:11:00 EDT, Dry Weight Start Date: 05/15/20 Stop Date: 09/14/20 Status: Ordered omeprazole 40 mg oral enteric coated capsule 1 capsule = 40 mg, By Mouth, 2 times a day, # 180 capsule, 0 Refills, Maintenance, 07/23/20 12:11:00 EDT, EC Capsule, [facility] # [...] 08/09/20 12:27:00 EDT, Route to Pharmacy Electronically, [facility] # [facility], 175, cm, 08/09/20 [...] 05/23/20 13:35:00 EDT, Route to Pharmacy Electronically, [facility] [...] 2 Active Gastric ulcer(Confirmed) Active Gout(Confirmed) 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
--- OUTSIDE RECORDS SUMMARY | 2023-07-25 02:17 | XMS_ITS | Continuity of Care Document ---
Author Name Unknown Organization [facility] Cedric lt Address [address] [place] [address]- Care Team Providers Care Sand Mill Operator Name Role Phone Yves JHAEVRI, Héctor Gooden Primary Care Physician [phone] Encounter [facility] Date(s): 06/01/20 - 07/01/20 [facility] Adult [address] [place] [address]- [facility] Allergies, Adverse Reactions, Alerts Substance Reaction Severity [...] Mccall 2Result Comment: [06/24/2017] HIGH DOSE LOT [id number] EXP 01-05-18 TRAV Y 3Admin Note: Received at the [facility] 4Admin Note: GIVEN AT [facility] PER PATIENT. 5Early/Late Reason: Nursing Judgment 6Admin Note: GIVEN IN CLINIC SHAM Medications allopurinol 300 mg oral tablet 1, tablet, By Mouth, Daily, # 90 Unknown, Refills 1, Tot. Refills 1, Maintenance, 02/06/20 15:38:00EDT, Route to Pharmacy Electronically, [facility] # [facility], 175, cm, 11/17/19 [...] capsule, 5 Refills, Maintenance, 05/23/20 13:35:00 EDT, [facility] # 50, 175, cm, 05/03/20 11:22:00 EDT, Height, 120.2, kg, 03/24/19 19:11:00 EDT, Dry Weight Start Date: 05/23/20 Status: Ordered escitalopram 20 mg oral tablet 1 tablet, By Mouth, Daily, # 30 Unknown, 5 Refills, Maintenance, 05/24/20 22:17:00 EDT, [facility] # 50, 175, cm, 05/03/20 11:22:00 EDT, Height, 120.2, kg, 03/24/19 19:11:00 EDT, Dry Weight Start Date: 05/24/20 Status: Ordered fenofibrate 160 mg oral tablet 1 tablet, By Mouth, Daily, # 30 Unknown, 6 Refills, Maintenance, 01/03/20 11:54:00 EDT, [facility] # 50, 175, cm, 11/17/19 12:58:00 EST, Height, 120.2, kg, 03/24/19 19:11:00 EDT, Dry Weight Start Date: 01/03/20 Status: Ordered Flomax 0.4 mg oral capsule 0.4 mg, By Mouth, Daily, # 90 capsule, Refills 3, Tot. Refills 3, Maintenance, 04/16/20 7:27:00 EDT, Route to Pharmacy Electronically, [facility] # 50, 175, cm, 03/26/20 10:55:00 EDT, Height, 120.2, kg, 03/24/19 19:11:00 EDT, Dry Weight Start Date: 04/16/20 Status: Ordered furosemide 20 mg oral tablet 1, tablet, By Mouth, Daily, # 30 Unknown, Refills 5, Tot. Refills 0, Maintenance, 05/24/20 22:18:00EDT, Route to Pharmacy Electronically, [facility] # 50, 175, cm, 05/03/20 11:22:00 EDT, Height,120.2, kg, 03/24/19 19:11:00 EDT, Dry Weight Start Date: 05/24/20 Status: Ordered gabapentin 300 mg oral capsule See Instructions, # 180 Unknown, Refills 3 Tot. Refills 3, TAKE ONE CAPSULE BY MOUTH TWICE A DAY, [facility] # 50 Start Date: 08/29/19 Status: Ordered Gold Murguia See Instructions, apply to affected area as needed, 0 Refills, Maintenance, 03/24/19 13:08:58 EDT Start Date: 03/24/19 Status: Ordered lactobacillus acidophilus oral capsule 1 capsule, By Mouth, Daily, # 60 capsule, 0 Refills, Maintenance, 05/30/20 8:54:00 EDT, Capsule, [facility] # 50, 1 capsule By [...] 08/07/20 15:40:00 EDT, 02/24/20 11:36:00 EDT, Tablet, [facility] # 50, 175, cm, 11/17/19 12:58:00 EST, Height, 120.2, kg, 03/24/19 19:11:00 EDT, Dry... Start Date: 02/24/20 Stop Date: 08/07/20 Status: Ordered magnesium oxide 400 mg oral tablet See Instructions, TAKE ONE TABLET BY MOUTH EVERY DAY AT NOON, # 100 Unknown, 3 Refills, Acute 09/14/20 16:45:00 EST, 05/15/20 16:45:00 EDT, [facility] # 50, 175, cm, 05/03/20 11:22:00 EDT, Height, 120.2, kg, 03/24/19 19:11:00 EDT, Dry Weight Start Date: 05/15/20 Stop Date: 09/14/20 Status: Ordered omeprazole 40 mg oral enteric coated capsule 1 capsule = 40 mg, By Mouth, 2 times a day, # 180 capsule, 0 Refills, Maintenance, 04/30/20 15:34:00 EDT, EC Capsule, [facility] # 50, 175, cm, 03/26/20 10:55:00 EDT, Height, 120.2, kg, 03/24/19 19:11:00 EDT, Dry Weight Start Date: 04/30/20 Status: Ordered oxyCODONE 5 mg oral tablet 5 mg, 1, tablet, By Mouth, 2 times a day, PRN, PRN for severe pain, # 20 tablet, Refills 0, Tot. Refills 0, Maintenance, as needed for severe pain, 06/07/20 12:23:00 EDT, Route to Pharmacy Electronically, [facility] # 50, 175, cm, 05/03/20 11:22:0... 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
--- OUTSIDE RECORDS SUMMARY | 2023-07-25 02:17 | XMS_ITS | Continuity of Care Document ---
Author Name Unknown Organization [facility] Jay Jay jeanette Address [address] [place] [address] Dr [address] [place] [address]- Care Team Providers Care Matzo Forming Machine Operator Name Role Phone Yves JHAVERI, Héctor Gooden Primary Care Physician Encounter [facility] Date(s): 03/26/20 - 04/25/20 [facility] [address] [place] [address]- [facility] Attending Physician: Clarissa Moore Admitting Physician: AdmClarissa turner Referring Physician: AdmtrClarissa Allergies, Adverse Reactions, Alerts [...] Mccall 2Result Comment: [06/24/2017] HIGH DOSE LOT [id number] EXP 01-05-18 TRAV Y 3Admin Note: Received at the [facility] 4Admin Note: GIVEN AT [facility] PER PATIENT. 5Early/Late Reason: Nursing Judgment 6Admin Note: GIVEN IN CLINIC SHAM Medications allopurinol 300 mg oral tablet 1, tablet, By Mouth, Daily, # 90 Unknown, Refills 1, Tot. Refills 1, Maintenance, 02/06/20 15:38:00EDT, Route to Pharmacy Electronically, [facility] # [facility], 175, cm, 11/17/19 12:58:00 EST, Height,120.2, kg, 03/24/19 19:11:00 EDT, Dry Weight Start Date: 02/06/20 Status: Ordered aspirin 81 mg oral tablet, chewable 1 tablet, By Mouth, Daily in AM, # 90 Unknown, 3 Refills, Maintenance, 04/02/20 16:25:00 EDT, [facility] # [facility], 175, cm, 03/26/20 10:55:00 EDT, [...] capsule, 5 Refills, Maintenance, 11/10/19 5:19:00 EST, [facility] # 50, 175, cm, 09/13/19 14:21:00 EST, Height, 120.2, kg, 03/24/19 19:11:00 EDT, Dry Weight Start Date: 11/10/19 Status: Ordered escitalopram 20 mg oral tablet 1 tablet, By Mouth, Daily, # 30 Unknown, 5 Refills, Maintenance, 12/19/19 16:54:00 EDT, [facility] # 50, 175, cm, 11/17/19 12:58:00 EST, Height, 120.2, kg, 03/24/19 19:11:00 EDT, Dry Weight Start Date: 12/19/19 Status: Ordered fenofibrate 160 mg oral tablet 1 tablet, By Mouth, Daily, # 30 Unknown, 6 Refills, Maintenance, 01/03/20 11:54:00 EDT, [facility] # 50, 175, cm, 11/17/19 12:58:00 [...] 11/21/19 12:13:00 EST, Route to Pharmacy Electronically, [facility] # 50, 175, cm, 11/17/19 12:58:00 [...] 08/07/20 15:40:00 EDT, 02/24/20 11:36:00 EDT, Tablet, [facility] # 50, 175, cm, 11/17/19 12:58:00 EST, Height, 120.2, kg, 03/24/19 19:11:00 EDT, Dry... 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
--- OUTSIDE RECORDS SUMMARY | 2023-07-25 02:17 | XMS_ITS | Continuity of Care Document ---
Author Name Unknown Organization [facility] Cal Cedric lt Address [address] [place] [address]- Care Team Providers Care Division Leader Name Role Phone Yves JHAVERI, Héctor Gooden Primary Care Physician Encounter [facility] Date(s): 09/03/20 - 10/03/20 [facility] Adult [address] [place] [address]- Allergies, Adverse Reactions, Alerts Substance Reaction Severity [...] Mccall 2Result Comment: [06/24/2017] HIGH DOSE LOT [id number] EXP 01-05-18 TRAV Y 3Admin Note: Received at the [facility] 4Admin Note: GIVEN AT [facility] PER PATIENT. 5Early/Late Reason: Nursing Judgment 6Admin Note: GIVEN IN CLINIC SHAM Medications allopurinol 300 mg oral tablet 1, tablet, By Mouth, Daily, # 90 Unknown, Refills 1, Tot. Refills 1, Maintenance, 07/23/20 12:11:00EDT, Route to Pharmacy Electronically, [facility] # [facility], 175, cm, 05/03/20 [...] capsule, 5 Refills, Maintenance, 05/23/20 13:35:00 EDT, [facility] # [facility], 175, cm, 05/03/20 11:22:00 EDT, Height, 120.2, kg, 03/24/19 19:11:00 EDT, Dry Weight Start Date: 05/23/20 Status: Ordered escitalopram 20 mg oral tablet 1 tablet, By Mouth, Daily, # 30 Unknown, 5 Refills, Maintenance, 05/24/20 22:17:00 EDT, [facility] # [facility], 175, cm, 05/03/20 [...] 0 Refills, Maintenance, 05/30/20 8:54:00 EDT, Capsule, [facility] # 50, 1 capsule By Mouth [...] 01/23/21 8:11:00 EDT, 08/07/20 15:40:00 EDT, Tablet, [facility] # 50, 175, cm, 05/03/20 11:22:00EDT, Height, 120.2, kg, 03/24/19 19:11:00 EDT, Dry... Start Date: 08/07/20 Stop Date: 01/23/21 Status: Ordered omeprazole 40 mg oral enteric coated capsule 1 capsule = 40 mg, By Mouth, 2 times a day, # 180 capsule, 0 Refills, Maintenance, 07/23/20 12:11:00 EDT, EC Capsule, [facility] # 50, 175, cm, 05/03/20 11:22:00 EDT, Height, 120.2, kg, 03/24/19 19:11:00 EDT, Dry Weight Start Date: 07/23/20 Status: Ordered oxyCODONE 5 mg oral tablet 5 mg, 1, tablet, By Mouth, 2 times a day, PRN, PRN for severe pain, # 20 tablet, Refills 0, Tot. Refills 0, Maintenance, as needed for severe pain, 09/05/20 16:21:00 EST, Route to Pharmacy Electronically, [facility] # 50, 175, cm, 08/09/20 11:32:0... 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
--- OUTSIDE RECORDS SUMMARY | 2023-07-25 02:17 | XMS_ITS | Continuity of Care Document ---
Author Name Unknown Organization [facility] Address [address] [facility], [address], [address] [place] [address]- Care Team Providers Care Dietary Assistant Name Role Phone Avinash Patrick MD Primary Care Physician [phone] Encounter [facility] Date(s): 08/14/22 - 09/13/22 [facility] [address], [address], [address] [place] [address]- Allergies, Adverse Reactions, Alerts Substance Reaction Severity [...] Mccall 2Result Comment: [06/24/2017] HIGH DOSE LOT [id number] EXP 01-05-18 BIG Y 3Admin Note: Received at the [facility] 4Admin Note: GIVEN AT [facility]ENTER [facility] [...] kg, /... 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 Hyperlipidemia [...] Response Smoking Status Current every day sm okrika entered on: 11/04/17 Sex Patient Care team information Care Team Personnel Name: Edita Mccall RN Position: [facility] RN Supv Member Role: Primary Care Nurse Name: Jakub Mayberry RN Position: [facility] RN Member Role: Primary Care Nurse Name: Angie Lafleur RN Position: [facility] RN Member Role: Primary Care Nurse Name: Mishel Bingham RN Position: [facility] PCO RN Member Role: Primary Care Nurse Name: Avinash Patrick MD Position: [facility] Outreach Member Role: PCP Address: Address: [address] [place] [address] [address] [place], [place] [address] Name: Parent Zunilda TENORIO Position: [facility] RN Member Role: Primary Care Nurse Name: Chary Kelley RN Position: [facility] RN Member Role: Primary Care Nurse Name: Lauren Morrow RN Position: [facility] SN RN Member Role: Primary Care Nurse Name: Renée Littlejohn RN Position: [facility] SN RN Member Role: Primary Care Nurse Care Team Related Persons Name: KARCATHICHANDRIKA Address: [address] [place] [address] Name: LIANNA HAWK Address: home [address] [place] [address] Name: SHAYE MEYER Name: ALEXANDR VELAZQUEZ Address: [place] [address]
--- OUTSIDE RECORDS SUMMARY | 2023-07-25 02:17 | XMS_ITS | Continuity of Care Document ---
Author Name Unknown Organization [facility] Address [address] [place] [address]- Care Team Providers Care Potato Chip Sacking Machine Operator Name Role Phone Not on Staff, PCP Primary Care Physician Unavail able Encounter [facility] Date(s): 08/21/20 - 12/19/20 [facility] [address] [place] [address]- Attending Physician: Virgilio Timmons MD Admitting Physician: Virgilio Timmons MD Referring Physician: Héctor Marinelli MD Allergies, [...] Mccall 2Result Comment: [06/24/2017] HIGH DOSE LOT [id number] EXP 01-05-18 BIG Y 3Admin Note: Received at the [facility] 4Admin Note: GIVEN AT [...] 10/30/20 13:22:00 EST, Route to Pharmacy Electronically, [facility] # [facility], 175, cm, 08/09/20 11:32:0... 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
--- OUTSIDE RECORDS SUMMARY | 2023-07-25 02:17 | XMS_ITS | Continuity of Care Document ---
Author Name Unknown Organization [facility] Cedric lt Address [address] [place] [address]- Care Team Providers Care Carbon Grinder Name Role Phone Yves JHAVERI, Héctor Gooden Primary Care Physician Encounter [facility] Date(s): 09/19/20 - 10/19/20 [facility] Adult [address] [place] [address]- Allergies, Adverse Reactions, Alerts Substance Reaction Severity [...] Mccall 2Result Comment: [06/24/2017] HIGH DOSE LOT [id number] EXP 01-05-18 BIG Y 3Admin Note: Received at the [facility] 4Admin Note: GIVEN AT [facility]ENTER [facility] [...] 09/05/20 16:21:00 EST, Route to Pharmacy Electronically, [facility] # 50, 175, cm, 08/09/20 11:32:0... [...] 2 Active Gastric ulcer(Confirmed) Active Gout(Confirmed) Active nursing home (current) use of anticoagulants(Confirmed) Active Hyperlipidemia(Confirmed) [...]
--- OUTSIDE RECORDS SUMMARY | 2023-07-25 02:17 | XMS_ITS | Continuity of Care Document ---
Author Name Unknown Organization [facility] Address [address] [place] [address]- Care Team Providers Care Skip Miner Name Role Phone Yves JHAVERI, Héctor Gooden Primary Care Physician Encounter [facility] Date(s): 12/21/19 - 12/31/19 [place] [address]- [facility] Attending Physician: Admyue, Clarissa Admitting Physician: AdmtrClarissa Referring Physician: Admtr, Ar8 Allergies, Adverse Reactions, Alerts [...] Mccall 2Result Comment: [06/24/2017] HIGH DOSE LOT [id number] EXP 01-05-18 BIG Y 3Admin Note: Received at the [facility] 4Admin Note: GIVEN AT [facility] PER PATIENT. 5Early/Late Reason: Nursing Judgment 6Admin Note: GIVEN IN CLINIC SHAM Medications allopurinol 300 mg oral tablet See Instructions, # 90 Unknown, Refills 1 Tot. Refills 1, TAKE ONE TABLET BY MOUTH EVERY DAY, TRAV [facility] # 50 Start Date: 08/10/19 Status: Ordered [...] capsule, 5 Refills, Maintenance, 11/10/19 5:19:00 EST, [facility] # 50, 175, cm, 09/13/19 14:21:00 EST, Height, 120.2, kg, 03/24/19 19:11:00 EDT, Dry Weight Start Date: 11/10/19 Status: Ordered escitalopram 20 mg oral tablet 1 tablet, By Mouth, Daily, # 30 Unknown, 5 Refills, Maintenance, 12/19/19 16:54:00 EDT, [facility] # 50, 175, cm, 11/17/19 12:58:00 [...] 05/11/19 10:36:31 EDT, Route to Pharmacy Electronically, [id number], [facility] # 50 Start Date: 05/11/19 Status: Ordered furosemide 20 mg oral tablet 1, tablet, By Mouth, Daily, # 30 tablet, Refills 5, Tot. Refills 5, Soft Stop, 11/21/19 12:13:00 EST, Route to Pharmacy Electronically, [facility] # 50, 175, cm, 11/17/19 [...] 11/21/19 12:14:00 EST, Route to Pharmacy Electronically, [facility] # 50, 175, cm, 11/17/19 12:58:00 [...] 11, TAKE ONE TABLET BY MOUTH EVERY EVENING,[facility] # 50 Start Date: 08/10/19 Status: [...] 2 Active Gastric ulcer(Confirmed) Active Gout(Confirmed) Active [facility] (current) use of anticoagulants(Confirmed) Active Hyperlipidemia(Confirmed) Active [...]
--- OUTSIDE RECORDS SUMMARY | 2023-07-25 02:18 | XMS_ITS | Continuity of Care Document ---
Author Name Unknown Organization [facility] Cedric lt Address [address] [place] [address]- Care Team Providers Care Apartment Community Assistant Manager Name Role Phone Yves JHAVERI, Héctor Gooden Primary Care Physician [facility]20 - 07/14/20 [facility] Adult [address] [place] [address]- [facility] Allergies, Adverse Reactions, Alerts Substance [...] Mccall 2Result Comment: [06/24/2017] HIGH DOSE LOT [id number] EXP 01-05-18 TRAV Y 3Admin Note: Received at the [facility] 4Admin Note: GIVEN AT [facility]ENTER [facility] PER PATIENT. 5Early/Late Reason: Nursing Judgment 6Admin Note: GIVEN IN CLINIC SHAM Medications allopurinol 300 mg oral tablet 1, tablet, By Mouth, Daily, # 90 Unknown, Refills 1, Tot. Refills 1, Maintenance, 02/06/20 15:38:00EDT, Route to Pharmacy Electronically, [facility] # [facility], 175, cm, 11/17/19 [...] capsule, 5 Refills, Maintenance, 05/23/20 13:35:00 EDT, [facility] # [facility], 175, cm, 05/03/20 11:22:00 EDT, Height, 120.2, kg, 03/24/19 19:11:00 EDT, Dry Weight Start Date: 05/23/20 Status: Ordered escitalopram 20 mg oral tablet 1 tablet, By Mouth, Daily, # 30 Unknown, 5 Refills, Maintenance, 05/24/20 22:17:00 EDT, [facility] # 50, 175, cm, 05/03/20 11:22:00 EDT, Height, 120.2, kg, 03/24/19 19:11:00 EDT, Dry Weight Start Date: 05/24/20 Status: Ordered fenofibrate 160 mg oral tablet 1 tablet, By Mouth, Daily, # 30 Unknown, 6 Refills, Maintenance, 01/03/20 11:54:00 EDT, [facility] # 50, 175, cm, 11/17/19 12:58:00 EST, Height, 120.2, kg, 03/24/19 19:11:00 EDT, Dry Weight Start Date: 01/03/20 Status: Ordered Flomax 0.4 mg oral capsule 0.4 mg, By Mouth, Daily, # 90 capsule, Refills 3, Tot. Refills 3, Maintenance, 04/16/20 7:27:00 EDT, Route to Pharmacy Electronically, [facility] # 50, 175, cm, 03/26/20 10:55:00 EDT, Height, 120.2, kg, 03/24/19 19:11:00 EDT, Dry Weight Start Date: 04/16/20 Status: Ordered furosemide 20 mg oral tablet 1, tablet, By Mouth, Daily, # 30 Unknown, Refills 5, Tot. Refills 0, Maintenance, 05/24/20 22:18:00EDT, Route to Pharmacy Electronically, [facility] # 50, 175, cm, 05/03/20 11:22:00 EDT, Height,120.2, kg, 03/24/19 19:11:00 EDT, Dry Weight Start Date: 05/24/20 Status: Ordered gabapentin 300 mg oral capsule See Instructions, # 180 Unknown, Refills 3 Tot. Refills 3, TAKE ONE CAPSULE BY MOUTH TWICE A DAY, [facility] # 50 Start Date: 08/29/19 Status: Ordered Gold Murguia See Instructions, apply to affected area as needed, 0 Refills, Maintenance, 03/24/19 13:08:58 EDT Start Date: 03/24/19 Status: Ordered lactobacillus acidophilus oral capsule 1 capsule, By Mouth, Daily, # 60 capsule, 0 Refills, Maintenance, 05/30/20 8:54:00 EDT, Capsule, [facility] # 50, 1 capsule By [...] 08/07/20 15:40:00 EDT, 02/24/20 11:36:00 EDT, Tablet, [facility] # 50, 175, cm, 11/17/19 12:58:00 EST, Height, 120.2, kg, 03/24/19 19:11:00 EDT, Dry... Start Date: 02/24/20 Stop Date: 08/07/20 Status: Ordered magnesium oxide 400 mg oral tablet See Instructions, TAKE ONE TABLET BY MOUTH EVERY DAY AT NOON, # 100 Unknown, 3 Refills, Acute 09/14/20 16:45:00 EST, 05/15/20 16:45:00 EDT, [facility] # 50, 175, cm, 05/03/20 11:22:00 EDT, Height, 120.2, kg, 03/24/19 19:11:00 EDT, Dry Weight Start Date: 05/15/20 Stop Date: 09/14/20 Status: Ordered omeprazole 40 mg oral enteric coated capsule 1 capsule = 40 mg, By Mouth, 2 times a day, # 180 capsule, 0 Refills, Maintenance, 04/30/20 15:34:00 EDT, EC Capsule, [facility] # 50, 175, cm, 03/26/20 10:55:00 EDT, Height, 120.2, kg, 03/24/19 19:11:00 EDT, Dry Weight Start Date: 04/30/20 Status: Ordered oxyCODONE 5 mg oral tablet 5 mg, 1, tablet, By Mouth, 2 times a day, PRN, PRN for severe pain, # 20 tablet, Refills 0, Tot. Refills 0, Maintenance, as needed for severe pain, 07/09/20 13:51:00 EDT, Route to Pharmacy Electronically, [facility] # 50, 175, cm, 05/03/20 11:22:0... 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
--- OUTSIDE RECORDS SUMMARY | 2023-07-25 02:18 | XMS_ITS | Continuity of Care Document ---
Author Name Unknown Organization [facility] Cedric lt Address [address] [place] [address]- Care Team Providers Care Document Improvement Specialist Name Role Phone Not on Staff, PCP Primary Care Physician Unavail able [facility]): [facility]20 - 12/01/20 [facility] Adult [address] [place] [address]- Attending Physician: Admtr, ArAbhishek Allergies, Adverse Reactions, Alerts Substance Reaction Severity [...] Mccall 2Result Comment: [06/24/2017] HIGH DOSE LOT [id number] EXP 01-05-18 BIG Y 3Admin Note: Received at the [facility] 4Admin Note: GIVEN AT [facility]ENTER [facility] PER [...] 01/23/21 8:11:00 EDT, 08/07/20 15:40:00 EDT, Tablet, [facility] # 50, 175, cm, 05/03/20 11:22:00EDT, [...] 10/30/20 13:22:00 EST, Route to Pharmacy Electronically, [facility] # 50, 175, cm, 08/09/20 11:32:0... Start Date: 10/30/20 Status: Ordered right cock-up splint right cock-up splint, See Instructions, # 1 each, Refills 0, Tot. Refills 0, Maintenance, wear at night dx g56.00 Carpal Tunnel Syndrome foreing lifetime, 11/17/19 13:35:00 EST, Compound Start Date: [...]
--- OUTSIDE RECORDS SUMMARY | 2023-07-25 02:18 | XMS_ITS | Continuity of Care Document ---
Author Name Unknown Organization [facility] Jay Jay jeanette Address [address] [place] [address] Dr [address] [place] [address]- Care Team Providers Care Copyist Name Role Phone Yves JHAVERI, Héctor Gooden Primary Care Physician [phone] [facility]counter [facility] Date[facility]s): 01/09/20 - 01/19/20 [facility] [address] [place] [address] Drive [address] [place] [address]- [facility] Attending Physician: Clarissa Moore Admitting Physician: AdmClarissa [...] Mccall 2Result Comment: [06/24/2017] HIGH DOSE LOT [id number] EXP 01-05-18 TRAV Y 3Admin Note: Received at the [facility] 4Admin Note: GIVEN AT [facility]ENTER [facility] PER PATIENT. 5Early/Late Reason: Nursing Judgment 6Admin Note: GIVEN IN CLINIC [facility] Medications allopurinol 300 mg oral tablet See Instructions, # 90 Unknown, Refills 1 Tot. Refills 1, TAKE ONE TABLET BY MOUTH EVERY DAY, TRAV [facility] # 50 Start Date: 08/10/19 Status: Ordered [...] capsule, 5 Refills, Maintenance, 11/10/19 5:19:00 EST, [facility] # 50, 175, cm, 09/13/19 14:21:00 EST, Height, 120.2, kg, 03/24/19 19:11:00 EDT, Dry Weight Start Date: 11/10/19 Status: Ordered escitalopram 20 mg oral tablet 1 tablet, By Mouth, Daily, # 30 Unknown, 5 Refills, Maintenance, 12/19/19 16:54:00 EDT, [facility] # 50, 175, cm, 11/17/19 12:58:00 EST, Height, 120.2, kg, 03/24/19 19:11:00 EDT, Dry Weight Start Date: 12/19/19 Status: Ordered fenofibrate 160 mg oral tablet 1 tablet, By Mouth, Daily, # 30 Unknown, 6 Refills, Maintenance, 01/03/20 11:54:00 EDT, [facility] # 50, 175, cm, 11/17/19 12:58:00 EST, Height, 120.2, kg, 03/24/19 19:11:00 EDT, Dry Weight Start Date: 01/03/20 Status: Ordered Flomax 0.4 mg oral capsule 0.4 mg, By Mouth, Daily, # 90 capsule, Refills 3, Tot. Refills 3, Maintenance, 05/11/19 10:36:31 EDT, Route to Pharmacy Electronically, [id number], [facility] # 50 Start Date: 05/11/19 Status: Ordered furosemide 20 mg oral tablet 1, tablet, By Mouth, Daily, # 30 tablet, Refills 5, Tot. Refills 5, Soft Stop, 11/21/19 12:13:00 EST, Route to Pharmacy Electronically, [facility] # 50, 175, cm, 11/17/19 12:58:00 EST, Height, 120.2, kg, 03/24/19 19:11:00 EDT, Dry Weight Start Date: 11/21/19 Status: Ordered gabapentin 300 mg oral capsule See Instructions, # 180 Unknown, Refills 3 Tot. Refills 3, TAKE ONE CAPSULE BY MOUTH TWICE A DAY, [facility] # 50 Start Date: 08/29/19 [...] 11/21/19 12:14:00 EST, Route to Pharmacy Electronically, [facility] # 50, 175, cm, 11/17/19 12:58:00 [...] 11, TAKE ONE TABLET BY MOUTH EVERY EVENING,[facility] # 50 Start Date: 08/10/19 Status: [...] 2 Active Gastric ulcer(Confirmed) Active Gout(Confirmed) Active [facility] (current) use of anticoagulants(Confirmed) Active Hyperlipidemia(Confirmed) Active [...]
[2023-07-25 03:08] LABS: Appearance Urine Cloudy; Color Urine Yellow; Glucose Urine UA Negative (Negative); Leukocyte Esterase Urine Large (3+) (Negative); Nitrite Urine Negative (Negative); Specific Gravity - Urine 1.025 (1.005-1.025); UMIC TRIGGER UACC YES; Urine Blood Moderate (2+) (Negative); Urine Ketones Negative (Negative); Urine Protein 30 (1+) mg/dL (Neg-Trace)
[2023-07-25 03:23] LABS: Bacteria Urine Trace (None Seen); Hyaline Casts Urine 0-2 /LPF (0-2); Squamous Epithelial Cell Urine 0-2 /HPF (0-2); UACC Culture Trigger YES; WBC Urine >50 /HPF (0-5)
--- NOTE | 2023-07-25 07:11 | ED.GENADULT ---
HPI - General Adult General Chief complaint: Upper Respiratory Symptoms Stated complaint: sob abdnormal lab results Time Seen by Provider: 07/25/23 07:05 Source: patient, EMS and RN notes reviewed Mode of arrival: EMS Limitations: no limitations History of Present Illness HPI narrative: 88-year-old male been having shortness of breath and cough for 7-10 days [facility] is showing left large pleural effusion. No fever, no chills, no sick contact. Related Data Home Medications Medication Instructions Recorded Confirmed allopurinol 300 mg tablet 1 tab PO DAILY 06/21/21 07/25/23 escitalopram oxalate 20 mg tablet 1 tab PO DAILY 06/21/21 07/25/23 fenofibrate 160 mg tablet 1 tab PO DAILY 06/21/21 07/25/23 fluticasone furoate 100 1 puff inhalation DAILY 06/21/21 07/25/23 mcg-vilanterol 25 mcg/dose inhalation powder (Breo Ellipta) furosemide 20 mg tablet 3 tab PO QAM 06/21/21 07/25/23 gabapentin 300 mg capsule 1 cap PO TID 06/21/21 07/25/23 tamsulosin 0.4 mg capsule 2 cap PO DAILY@1700 06/21/21 07/25/23 valsartan 40 mg tablet 1 tab PO QAM 06/21/21 07/25/23 trazodone 150 mg tablet 1 tab PO BEDTIME 07/29/21 07/25/23 acetaminophen 325 mg tablet 975 mg PO TID 03/02/22 07/25/23 bisacodyl 10 mg rectal suppository 10 mg AL Q24H PRN Constipation 03/02/22 07/25/23 (Dulcolax (bisacodyl)) isosorbide mononitrate 30 mg 30 mg PO QAM 03/02/22 07/25/23 tablet,extended release 24 hr lorazepam 0.5 mg tablet 0.5 mg PO TID 03/02/22 07/25/23 magnesium hydroxide 400 mg/5 mL 30 ml PO Q24H PRN Constipation 03/02/22 07/25/23 oral suspension (Milk of Magnesia) pantoprazole 40 mg tablet,delayed 40 mg PO BID@0630,1630 03/02/22 07/25/23 release (Protonix) bicalutamide 50 mg tablet (Casodex) 50 mg PO DAILY 05/12/23 07/25/23 d-mannose 500 mg capsule (AZO 1,000 mg PO BID 05/12/23 07/25/23 D-Mannose) albuterol sulfate 90 mcg/actuation 2 puff inhalation Q4H PRN 07/25/23 07/25/23 aerosol inhaler Shortness Of Breath ammonium lactate 12 % topical cream 1 appl topical BID 07/25/23 07/25/23 ceftriaxone 1 gram solution for 1 g IM QPM uti 07/25/23 07/25/23 injection docusate sodium 100 mg capsule 100 mg PO DAILY 07/25/23 07/25/23 guaifenesin 600 mg tablet, 600 mg PO Q12H PRN Cough 07/25/23 07/25/23 extended release 12 hr magnesium oxide 400 mg (241.3 mg 400 mg PO BID 07/25/23 07/25/23 magnesium) tablet melatonin 10 mg tablet 10 mg PO BEDTIME 07/25/23 07/25/23 nystatin 100,000 unit/gram topical 1 appl topical BID rash 07/25/23 07/25/23 powder rivaroxaban 10 mg tablet (Xarelto) 10 mg PO DAILY 07/25/23 07/25/23 sodium phosphates 19 gram-7 118 ml AL Q3D PRN Constipation 07/25/23 07/25/23 gram/118 mL enema (Fleet Enema) Allergies Allergy/AdvReac Type Severity Reaction Status Date / Time levofloxacin [LEVOFLOXACIN] Allergy Severe HYPOTENSION Verified 05/12/23 13:12 Penicillins [PCN] Allergy Severe DIFFICULTY Verified 05/12/23 13:12 BREATHING,RASH penicillin V Allergy Unknown sob/rash Verified 05/12/23 13:12 quinine [QUININE] Allergy Unknown UNKNOWN, ? Verified 05/12/23 13:12 Sulfa (Sulfonamide Allergy Unknown UNSURE Verified 05/12/23 13:12 Antibiotics) [SULFA(SULFONAMIDE ANTIBIOTICS)] morphine [MORPHINE] AdvReac Intermediate HYPOTENSION Verified 05/12/23 13:12 MUSCLE RELAXERS Allergy Severe RASH/IMMOBI Uncoded 05/12/23 13:12 LITY Review of Systems Review of Systems: all other systems are reviewed and are negative Constitutional: Reports as per HPI and Reports no additional constitutional complaints Eyes: Reports as per HPI and Reports no additional eye complaints Reports system reviewed and no additional complaints, except as documented Cardiovascular: Reports as per HPI and Reports no additional cardiovascular complaints Respiratory: Reports as per HPI and Reports no additional respiratory complaints Gastrointestinal: Reports as per HPI and Reports no additional gastrointestinal complaints Genitourinary: Reports no additional female genitourinary complaints Musculoskeletal: Reports no additional musculoskeletal complaints Skin/Breast: Reports system reviewed and no additional complaints, except as docu Psychiatric: Reports no additional psychiatric complaints Endocrine: Reports no additional endocrine complaints Hematologic/Lymphatic: Reports no additional hematologic/lymphatic complaints Allergic/Immunologic: Reports no additional allergic/immunologic complaints Reports system reviewed and no additional complaints, except as documented and Reports Abnormal speech present [facility] Past Medical History Medical History Presence of permanent cardiac pacemaker Paroxysmal atrial fibrillation Acute kidney injury Sepsis secondary to UTI Pneumonitis Diastolic CHF Presence of permanent cardiac pacemaker Atrial fibrillation Stasis dermatitis Hypomagnesemia HTN (hypertension) Hypoxia DVT (deep venous thrombosis) History of pulmonary embolism Gout BPH (benign prostatic hyperplasia) CHF (congestive heart failure) COPD (chronic obstructive pulmonary disease) Surgical History Status post placement of cardiac pacemaker Family History Family History Other HTN (hypertension) Heart disease Social History Social History Household Members: None Housing: Assisted Living Facility Do you presently have visiting nurse or other home services: Yes Alcohol intake: never Patient Tobacco Use Status: Former Tobacco user Smoked in Last 30 Days: No Use of substances other than those prescribed or required for medical reasons: No Advance Directives: Yes Advance Directives on File: Yes Advance Directives Date on File: 07/13/21 service: No Current occupational status: retired Physical Exam ED Vital Signs: Vital Signs - 24 hr 07/25/23 02:00 07/25/23 02:10 07/25/23 04:32 Temperature 97.8 F Pulse Rate 60 61 Respiratory Rate 16 14 Blood Pressure 140/88 H 108/45 L Pulse Oximetry 96 93 97 Oxygen Delivery Method Nasal Cannula Nasal Cannula Room Air Oxygen Flow Rate 2 07/25/23 06:01 07/25/23 08:30 Temperature 97.8 F 97.6 F Pulse Rate 60 60 Respiratory Rate 14 15 Blood Pressure 115/27 L 120/63 Pulse Oximetry 97 98 Oxygen Delivery Method Nasal Cannula Nasal Cannula Oxygen Flow Rate 2 2 BMI result Body Mass Index 35.1 Vital signs have been reviewed and appear to be correct. Blood pressure elevated. Heart rate normal. Respiratory rate normal. Temperature normal. Oxygen saturation normal. Appearance: Alert. Oriented X3. No acute distress. Head: Normal external exam. Normocephalic. Atraumatic. No Gonzales signs noted. No raccoon eyes noted Eyes: PERRLA. EOMI. Conjunctiva and sclera normal. Eyelids normal. ENT: TM's Normal. Pharynx normal. Uvula midline. Moist mucous membranes. No trismus noted. No drooling noted. No muffled voice noted. Neck: Normal inspection. Neck supple. FROM. No adenopathy. Thyroid Normal. No meningeal signs. No neck mass noted. CVS: Normal heart rate and rhythm. Heart sound normal. No murmurs noted. Pulses normal throughout. Respiratory: No respiratory distress. Painless inspiration. Breath sounds normal. No wheezes/rales/rhonchi noted. Chest nontender. No accessory muscle usage noted or decreased air movement noted. Abdomen: Soft and nontender. Bowel sounds normal in all 4 quadrants. No distention noted. No organomegaly noted. No visible injury noted. Back: No CVA tenderness. Full range of motion noted. Skin: Skin warm and dry. Normal skin color. Normal skin turgor. No rashes/lesions/lacerations noted. Extremities: No lower extremity edema. Extremities exhibit normal range of motion. Extremities nontender. Neuro: Oriented X 3. Cranial nerve exam: II-XII are grossly intact No motor deficit. No sensory deficit. Reflexes normal. Course Reevaluation(s) Reevaluation #1: 88-year-old male came in with dyspnea found to have a large left pleural effusion, the case discussed with Dr. Renee patient to be admitted to the medical service and Dr. Renee will manage the chest tube. UTI with no SARs , start on ceftriaxone. Time: 09:33 Medical Decision Making Differential Diagnosis Differential Diagnoses: The differential diagnosis associated with the presentation includes ( ACS, CHF, pneumonia, pleural effusion, pneumothorax, electrolyte abnormality, severe anemia, UTI.) Admission/Observation Consideration of admission/observation: Escalation of care including admission/observation considered Consult Healthcare Provider Management of the patient was discussed with: Hospitalist ( Dr. Prince) Lab Data MDM Lab Attestation statement: I reviewed the patient's lab results. 07/25/23 08:07 07/25/23 08:07 Labs: Lab Results 07/25/23 07/25/23 07/25/23 Range/Units 03:01 08:06 08:07 WBC 4.5 L (4.8-10.8) X10*3/uL RBC 3.70 L (4.60-5.80) X10*6/uL Hgb 10.8 L (14.0-18.0) g/dl Hct 34.3 L (42.0-52.0) % MCV 92.7 (80.0-98.0) fL MCH 29.2 (27.0-33.0) pg MCHC 31.5 (31.0-36.0) g/dl RDW 15.4 (11.0-16.0) % Plt Count 246 D (160-400) X10*3/uL MPV 9.2 L (9.4-12.4) fL Immature Gran % (Auto) 0.4 (0.0-0.4) % Neut % (Auto) 71.2 (45-73) % Lymph % (Auto) 14.5 L (20-40) % Republic % (Auto) 9.3 (2-11) % Eos % (Auto) 4.2 H (0-4) % Baso % (Auto) 0.4 (0-2) % Lymph # (Auto) 0.7 L (1.2-4.9) X10*3/uL Republic # (Auto) 0.4 (0.1-1.2) X10*3/uL Eos # (Auto) 0.2 (0.0-0.4) X10*3/uL Baso # (Auto) 0.0 (0.0-0.2) X10*3/uL Abs Immat Gran (auto) 0.02 (0.00-0.03) X10*3/uL Absolute Neuts (auto) 3.2 (2.0-8.3) x10*3/uL Absolute Nucleated RBC 0.000 (0.0-0.012) X10*3/uL Nucleated RBC % (auto) 0.0 (0.0-0.2) /100WBC Sodium 143 (135-145) mmol/L Potassium 4.6 D (3.3-5.1) mmol/L Chloride 102 (96-108) mmol/L Carbon Dioxide 29 (22-29) mmol/L Anion Gap 17 (12-20) BUN 26 H (9-16) mg/dL Creatinine 1.12 (0.5-1.4) mg/dL Estim Creat Clear Calc 53.7 Estimated GFR > 60 Random Glucose 97 (60-115) mg/dL Calcium 9.8 (8.4-10.2) mg/dL Total Bilirubin 0.4 (0.0-1.0) mg/dL Direct Bilirubin 0.1 (0.0-0.5) mg/dL AST 25 (5-37) U/L ALT 9 (0-40) U/L Alkaline Phosphatase 41 (39-117) U/L Troponin I High Sens < 2.7 (<3.5-35.0) ng/L B-Natriuretic Peptide 167 H (<100) pg/mL Total Protein 7.2 (6.5-8.0) g/dL Albumin 4.0 (3.5-5.0) g/dL Lipase 62 (8-78) U/L Urine Color Yellow Urine Appearance Cloudy Urine pH 6.0 (5.0-9.0) Ur Specific [place] 1.025 (1.005-1.025) Urine Protein 30 (1+) H (Neg-Trace) mg/dL Urine Glucose (UA) Negative (Negative) mg/dL Urine Ketones Negative (Negative) mg/dL Urine Blood Moderate (2+) H (Negative) Urine Nitrite Negative (Negative) Ur Leukocyte Esterase Large (3+) H (Negative) Urine RBC 3-5 H (0-2) /HPF Urine WBC >50 (0-5) /HPF Ur Squamous Epith Cells 0-2 (0-2) /HPF Urine Bacteria Trace (None Seen) Hyaline Casts 0-2 (0-2) /LPF COVID-19 (ESAU) Negative (Negative) COVID-19 Clin Com See Note 07/25/23 Range/Units 08:34 WBC (4.8-10.8) X10*3/uL RBC (4.60-5.80) X10*6/uL Hgb (14.0-18.0) g/dl Hct (42.0-52.0) % MCV (80.0-98.0) fL MCH (27.0-33.0) pg MCHC (31.0-36.0) g/dl RDW (11.0-16.0) % Plt Count (160-400) X10*3/uL MPV (9.4-12.4) fL Immature Gran % (Auto) (0.0-0.4) % Neut % (Auto) (45-73) % Lymph % (Auto) (20-40) % Republic % (Auto) (2-11) % Eos % (Auto) (0-4) % Baso % (Auto) (0-2) % Lymph # (Auto) (1.2-4.9) X10*3/uL Republic # (Auto) (0.1-1.2) X10*3/uL Eos # (Auto) (0.0-0.4) X10*3/uL Baso # (Auto) (0.0-0.2) X10*3/uL Abs Immat Gran (auto) (0.00-0.03) X10*3/uL Absolute Neuts (auto) (2.0-8.3) x10*3/uL Absolute Nucleated RBC (0.0-0.012) X10*3/uL Nucleated RBC % (auto) (0.0-0.2) /100WBC Sodium (135-145) mmol/L Potassium (3.3-5.1) mmol/L Chloride (96-108) mmol/L Carbon Dioxide (22-29) mmol/L Anion Gap (12-20) BUN (9-16) mg/dL Creatinine (0.5-1.4) mg/dL Estim Creat Clear Calc Estimated GFR Random Glucose (60-115) mg/dL Calcium (8.4-10.2) mg/dL Total Bilirubin (0.0-1.0) mg/dL Direct Bilirubin (0.0-0.5) mg/dL AST (5-37) U/L ALT (0-40) U/L Alkaline Phosphatase (39-117) U/L Troponin I High Sens (<3.5-35.0) ng/L B-Natriuretic Peptide (<100) pg/mL Total Protein (6.5-8.0) g/dL Albumin (3.5-5.0) g/dL Lipase (8-78) U/L Urine Color Yellow Urine Appearance Turbid Urine pH 5.5 (5.0-9.0) Ur Specific [place] 1.020 (1.005-1.025) Urine Protein 30 (1+) H (Neg-Trace) mg/dL Urine Glucose (UA) Negative (Negative) mg/dL Urine Ketones Negative (Negative) mg/dL Urine Blood Small (1+) H (Negative) Urine Nitrite Negative (Negative) Ur Leukocyte Esterase Large (3+) H (Negative) Urine RBC 0-2 (0-2) /HPF Urine WBC >50 H (0-5) /HPF Ur Squamous Epith Cells 0-2 (0-2) /HPF Urine Bacteria None Seen (None Seen) Hyaline Casts 3-5 (0-2) /LPF COVID-19 (ESAU) (Negative) COVID-19 Clin Com Independent Interpretation I performed an independent interpretation of an: EKG ( Ventricular paced at 100.) and Plain X-Ray ( chest: A large left pleural effusion.) Radiology Impression Discussion of test interpretation with radiology: I have reviewed the radiologist's reading. Discharge Plan Discharge Clinical Impression: Pleural effusion, Acute UTI Dyspnea Qualifiers: Dyspnea type: unspecified Qualified Code(s): R06.00 - Dyspnea, unspecified Patient Disposition: Admitted As Inpatient
--- NOTE | 2023-07-25 07:13 | ECG_ITS ---
Test Reason : SOB Blood Pressure : / mmHG Vent. Rate : 060 BPM Atrial Rate : 060 BPM P-R Int : 196 ms QRS Dur : 194 ms QT Int : 512 ms P-R-T Axes : 000 -66 111 degrees QTc Int : 512 ms AV dual-paced rhythm Abnormal ECG When compared with ECG of 08-APR-2022 22:48, Vent. rate has decreased BY 18 BPM Referred By: Ya Lea Electronically Signed By:LEBRON RAMÍREZ MD
--- NOTE | 2023-07-25 08:04 | MHC.EDTECH ---
Patient found to be incontinent of urine. T/w and another tech (Juan) helped clean Pt up and do full bedding change. Pt boosted/repositioned, prototype assembler electronics placed on Pt. Call perez within reach. EKG done.
[2023-07-25 08:10] LABS: MANUAL DIFF FLAG NO
[2023-07-25 08:13] LABS: Basophils Percent Auto 0.4 % (0-2); Eosinophils Absolute Auto 0.2 X10*3/uL (0.0-0.4); Eosinophils Percent Auto 4.2 % (0-4); Hematocrit 34.3 % (42.0-52.0); Hemoglobin 10.8 g/dl (14.0-18.0); Imm Gran Abs Auto 0.02 X10*3/uL (0.00-0.03); Imm Gran Pct Auto 0.4 % (0.0-0.4); Lymphocytes Absolute Auto 0.7 X10*3/uL (1.2-4.9); Lymphocytes Percent Auto 14.5 % (20-40); Mean Corpuscular HGB Conc 31.5 g/dl (31.0-36.0); Mean Corpuscular Hemoglobin 29.2 pg (27.0-33.0); Mean Corpuscular Volume 92.7 fL (80.0-98.0); Mean Platelet Volume 9.2 fL (9.4-12.4); Monocytes Absolute Auto 0.4 X10*3/uL (0.1-1.2); Monocytes Percent Auto 9.3 % (2-11); Neutrophils Absolute Auto 3.2 x10*3/uL (2.0-8.3); Neutrophils Percent Auto 71.2 % (45-73); Platelet Count 246 X10*3/uL (160-400); Red Cell Distribution Width 15.4 % (11.0-16.0); White Blood Count 4.5 X10*3/uL (4.8-10.8)
[2023-07-25 08:29] LABS: COVID-19 Test Negative (Negative); IDNOW Serial# BCCEAD1C
[2023-07-25 08:35] LABS: Alanine Aminotransferase 9 U/L (0-40); Alkaline Phosphatase 41 U/L (39-117); Anion Gap 17 (12-20); Aspartate Amino Transferase 25 U/L (5-37); Bilirubin Direct 0.1 mg/dL (0.0-0.5); Bilirubin Total 0.4 mg/dL (0.0-1.0); Blood Urea Nitrogen 26 mg/dL (9-16); Calcium 9.8 mg/dL (8.4-10.2); Carbon Dioxide 29 mmol/L (22-29); Chloride 102 mmol/L (96-108); Creatinine Clr Calc Pharmacy 53.7; Estimated Glomerular Filt Rate > 60; Glucose Random 97 mg/dL (60-115); Lipase 62 U/L (8-78); Potassium 4.6 mmol/L (3.3-5.1); Sodium 143 mmol/L (135-145); Total Protein 7.2 g/dL (6.5-8.0)
[2023-07-25 08:44] LABS: Troponin-I High Sensitivity < 2.7 ng/L (<3.5-35.0)
[2023-07-25 08:44] LABS: Appearance Urine Turbid; Color Urine Yellow; Glucose Urine UA Negative (Negative); Leukocyte Esterase Urine Large (3+) (Negative); Nitrite Urine Negative (Negative); PH 5.5 (5.0-9.0); UMIC TRIGGER UACC YES; Urine Blood Small (1+) (Negative); Urine Ketones Negative (Negative); Urine Protein 30 (1+) mg/dL (Neg-Trace)
[2023-07-25 08:55] LABS: Bacteria Urine None Seen (None Seen); RBC Urine 0-2 /HPF (0-2); Squamous Epithelial Cell Urine 0-2 /HPF (0-2); UACC Culture Trigger YES; WBC Urine >50 /HPF (0-5)
[2023-07-25 09:25] LABS: B Type Natriuretic Peptide 167 pg/mL (<100)
--- NOTE | 2023-07-25 09:34 | PHA.MEDREC ---
Pharmacy Consult ? Medication Reconciliation Pharmacy has completed the medication reconciliation. used list from [facility].
--- NOTE | 2023-07-25 09:46 | PHA.MEDREC ---
Pharmacy Consult ? Medication Reconciliation Received medication list from [facility] has completed the medication reconciliation.
[2023-07-25] MEDS: cefTRIAXone sodium 1 GM in 0.9 % Sodium Chloride 50 ML IV ×2 (10:34→21:09)
--- NOTE | 2023-07-25 11:07 | P.HPHOSP_ITS ---
History of Present Illness Date of Service: 07/25/23 Chief Complaint: large left effusion on CT 88M LTC at [facility], [facility] persistent afib, chronic hypoxic respiratory failure on 2L, chronic diastolic chf, history of PE, htn, obesity, pacer, sent from [place] after CT from 2 days ptp showed large left effussion. CT done for hemoptysis, sob, and productive cough about 1 week. patient reports feeling comfortable and at baseline. of note, was on rocephin for uti as outpatient. Review of Systems 2 Review of Systems: Yes all other systems are reviewed and are negative [facility] Medical History Presence of permanent cardiac pacemaker Paroxysmal atrial fibrillation Acute kidney injury Sepsis secondary to UTI Pneumonitis Diastolic CHF Presence of permanent cardiac pacemaker Atrial fibrillation Stasis dermatitis Hypomagnesemia HTN (hypertension) Hypoxia DVT (deep venous thrombosis) History of pulmonary embolism Gout BPH (benign prostatic hyperplasia) CHF (congestive heart failure) COPD (chronic obstructive pulmonary disease) Family History Other HTN (hypertension) Heart disease Surgical History Status post placement of cardiac pacemaker Social History Household Members: None Housing: Assisted Living Facility Do you presently have visiting nurse or other home services: Yes Alcohol intake: never Patient Tobacco Use Status: Former Tobacco user Smoked in Last 30 Days: No Use of substances other than those prescribed or required for medical reasons: No Advance Directives: Yes Advance Directives on File: Yes Advance Directives Date on File: 07/13/21 service: No Current occupational status: retired Meds Allergies Allergy/AdvReac Type Severity Reaction Status Date / Time levofloxacin [LEVOFLOXACIN] Allergy Severe HYPOTENSION Verified 05/12/23 13:12 Penicillins [PCN] Allergy Severe DIFFICULTY Verified 05/12/23 13:12 BREATHING,RASH penicillin V Allergy Unknown sob/rash Verified 05/12/23 13:12 quinine [QUININE] Allergy Unknown UNKNOWN, ? Verified 05/12/23 13:12 Sulfa (Sulfonamide Allergy Unknown UNSURE Verified 05/12/23 13:12 Antibiotics) [SULFA(SULFONAMIDE ANTIBIOTICS)] morphine [MORPHINE] AdvReac Intermediate HYPOTENSION Verified 05/12/23 13:12 MUSCLE RELAXERS Allergy Severe RASH/IMMOBI Uncoded 05/12/23 13:12 LITY Active Medications: Current Medications Acetaminophen (Acetaminophen 325 Mg Tablet) 975 mg PO TID [facility] Albuterol Sulfate (Albuterol Sulfate 90 Mcg 8 Gm Inhaler) 2 puff INHALE Q4H PRN PRN Reason: Shortness Of Breath Allopurinol (Allopurinol 300 Mg Tablet) 300 mg PO DAILY [facility] Bicalutamide (Bicalutamide 50 Mg Tablet) 50 mg PO DAILY [facility] Bisacodyl (Bisacodyl 10 Mg Supp.Rect) [address] Q24H PRN PRN Reason: Constipation Docusate Sodium (Docusate Sodium 100 Mg Capsule) 100 mg PO DAILY [facility] Escitalopram Oxalate (Escitalopram Oxalate 20 Mg Tablet) 20 mg PO DAILY [facility] Fenofibrate (Fenofibrate 160 Mg Tablet) 160 mg PO DAILY [facility] Fluticasone/Vilanterol (Fluticasone/Vilanterol 100/25 Blst.W.Dev) 1 puff INHALE RDAILY [facility] Furosemide (Furosemide 20 Mg Tablet) 60 mg PO DAILY [facility]; Protocol Gabapentin (Gabapentin 300 Mg Capsule) 300 mg PO TID [facility] Guaifenesin (Guaifenesin La 600 Mg Tab.Er.12h) 600 mg PO Q12H PRN PRN Reason: Cough Ceftriaxone Sodium 1 gm/ (Sodium Chloride) 50 mls @ 100 mls/hr IV Q24H [facility] Isosorbide Mononitrate (Isosorbide Mononitrate 30 Mg Tab.Er.24h) 30 mg PO DAILY [facility]; Protocol Lorazepam (Lorazepam 0.5 Mg Tablet) 0.5 mg PO TID [facility] Magnesium Hydroxide (Milk Of Magnesia 30 Ml Oral.Susp) 30 ml PO Q24H PRN PRN Reason: Constipation Magnesium Oxide (Magnesium Oxide 400 Mg Tablet) 400 mg PO BID [facility] Omeprazole (Omeprazole 20 Mg Capsule.Dr) 20 mg PO BID@0630,1630 [facility] Rivaroxaban (Rivaroxaban 10 Mg Tablet) 10 mg PO DAILY [facility] Sodium Biphosphate/Sodium Phosphate (Sodium Phosphate,Mcdonald-Dibasic 133 Ml Enema) [address] Q3D PRN PRN Reason: Constipation Sodium Chloride (0.9 % Sodium Chloride Flush 3 Ml Syringe) 3 ml IVFLUSH QSHIFT [facility] Tamsulosin HCl (Tamsulosin Hcl 0.4 Mg Capsule) 0.8 mg PO DAILY@1700 [facility] Trazodone HCl (Trazodone Hcl 50 Mg Tablet) 150 mg PO BEDTIME [facility] Valsartan (Valsartan 40 Mg Tablet) 40 mg PO DAILY [facility]; Protocol Home Medications Medication Instructions Recorded Confirmed Last Taken Type allopurinol 300 mg tablet 1 tab PO DAILY 06/21/21 07/25/23 03/01/22 History escitalopram oxalate 20 mg tablet 1 tab PO DAILY 06/21/21 07/25/23 03/01/22 History fenofibrate 160 mg tablet 1 tab PO DAILY 06/21/21 07/25/23 03/01/22 History fluticasone furoate 100 1 puff inhalation DAILY 06/21/21 07/25/23 03/01/22 History mcg-vilanterol 25 mcg/dose inhalation powder (Breo Ellipta) furosemide 20 mg tablet 3 tab PO QAM 06/21/21 07/25/23 03/01/22 History gabapentin 300 mg capsule 1 cap PO TID 06/21/21 07/25/23 03/01/22 History tamsulosin 0.4 mg capsule 2 cap PO DAILY@1700 06/21/21 07/25/23 03/01/22 History valsartan 40 mg tablet 1 tab PO QAM 06/21/21 07/25/23 03/01/22 History trazodone 150 mg tablet 1 tab PO BEDTIME 07/29/21 07/25/23 03/01/22 History acetaminophen 325 mg tablet 975 mg PO TID 03/02/22 07/25/23 03/01/22 History bisacodyl 10 mg rectal suppository [address] Q24H PRN Constipation 03/02/22 07/25/23 Unknown History (Dulcolax (bisacodyl)) isosorbide mononitrate 30 mg 30 mg PO QAM 03/02/22 07/25/23 03/01/22 History tablet,extended release 24 hr lorazepam 0.5 mg tablet 0.5 mg PO TID 03/02/22 07/25/23 03/01/22 History magnesium hydroxide 400 mg/5 mL 30 ml PO Q24H PRN Constipation 03/02/22 07/25/23 Unknown History oral suspension (Milk of Magnesia) pantoprazole 40 mg tablet,delayed 40 mg PO BID@0630,1630 03/02/22 07/25/23 03/01/22 History release (Protonix) bicalutamide 50 mg tablet (Casodex) 50 mg PO DAILY 05/12/23 07/25/23 Unknown History d-mannose 500 mg capsule (AZO 1,000 mg PO BID 05/12/23 07/25/23 Unknown History D-Mannose) albuterol sulfate 90 mcg/actuation 2 puff inhalation Q4H PRN 07/25/23 07/25/23 Unknown History aerosol inhaler Shortness Of Breath ammonium lactate 12 % topical cream 1 appl topical BID 07/25/23 07/25/23 Unknown History ceftriaxone 1 gram solution for 1 g IM QPM uti 07/25/23 07/25/23 Unknown History injection docusate sodium 100 mg capsule 100 mg PO DAILY 07/25/23 07/25/23 Unknown History guaifenesin 600 mg tablet, 600 mg PO Q12H PRN Cough 07/25/23 07/25/23 Unknown History extended release 12 hr magnesium oxide 400 mg (241.3 mg 400 mg PO BID 07/25/23 07/25/23 Unknown History magnesium) tablet melatonin 10 mg tablet 10 mg PO BEDTIME 07/25/23 07/25/23 Unknown History nystatin 100,000 unit/gram topical 1 appl topical BID rash 07/25/23 07/25/23 Unknown History powder rivaroxaban 10 mg tablet (Xarelto) 10 mg PO DAILY 07/25/23 07/25/23 Unknown History sodium phosphates 19 gram-[address] Q3D PRN Constipation 07/25/23 07/25/23 Unknown History gram/118 mL enema (Fleet Enema) Physical Exam 2 Vital Signs and Narrative: Vital Signs: Last Vital Signs Temp 98.1 F 07/25/23 10:37 Pulse 60 07/25/23 10:37 Resp 15 07/25/23 10:37 BP 135/69 07/25/23 10:37 Pulse Ox 98 07/25/23 10:37 O2 Del Method Nasal Cannula 07/25/23 10:37 O2 Flow Rate 2 07/25/23 10:37 Oxygen Flow Rate 2 07/25/23 02:10 BMI result Body Mass Index 35.1 General: AO X 3, no acute distress Resp: diminshed right base CVS: S1,S2,RRR GI: soft, non tender, non distended Psych: appropriate affect, appropriate insight Results Labs 07/25/23 08:07 07/25/23 08:07 Labs: Laboratory Results - last 24 hr 07/25/23 07/25/23 07/25/23 03:01 08:06 08:07 MCV 92.7 MCH 29.2 MCHC 31.5 RDW 15.4 Plt Count 246 D MPV 9.2 L Immature Gran % (Auto) 0.4 Neut % (Auto) 71.2 Lymph % (Auto) 14.5 L Mcdonald % (Auto) 9.3 Eos % (Auto) 4.2 H Baso % (Auto) 0.4 Lymph # (Auto) 0.7 L Mcdonald # (Auto) 0.4 Eos # (Auto) 0.2 Baso # (Auto) 0.0 Abs Immat Gran (auto) 0.02 Absolute Neuts (auto) 3.2 Absolute Nucleated RBC 0.000 Nucleated RBC % (auto) 0.0 Anion Gap 17 Estim Creat Clear Calc 53.7 Estimated GFR > 60 Random Glucose 97 Calcium 9.8 Total Bilirubin 0.4 Direct Bilirubin 0.1 AST 25 ALT 9 Alkaline Phosphatase 41 B-Natriuretic Peptide 167 H Total Protein 7.2 Albumin 4.0 Lipase 62 Urine Color Yellow Urine Appearance Cloudy Urine pH 6.0 Ur Specific [place] 1.025 Urine Protein 30 (1+) H Urine Glucose (UA) Negative Urine Ketones Negative Urine Blood Moderate (2+) H Urine Nitrite Negative Ur Leukocyte Esterase Large (3+) H Urine RBC 3-5 H Urine WBC >50 Ur Squamous Epith Cells 0-2 Urine Bacteria Trace Hyaline Casts 0-2 COVID-19 ([facility]) Negative COVID-19 Clin Com See Note 07/25/23 08:34 MCV MCH MCHC RDW Plt Count MPV Immature Gran % (Auto) Neut % (Auto) Lymph % (Auto) Mcdonald % (Auto) Eos % (Auto) Baso % (Auto) Lymph # (Auto) Mcdonald # (Auto) Eos # (Auto) Baso # (Auto) Abs Immat Gran (auto) Absolute Neuts (auto) Absolute Nucleated RBC Nucleated RBC % (auto) Anion Gap Estim Creat Clear Calc Estimated GFR Random Glucose Calcium Total Bilirubin Direct Bilirubin AST ALT Alkaline Phosphatase B-Natriuretic Peptide Total Protein Albumin Lipase Urine Color Yellow Urine Appearance Turbid Urine pH 5.5 Ur Specific [place] 1.020 Urine Protein 30 (1+) H Urine Glucose (UA) Negative Urine Ketones Negative Urine Blood Small (1+) H Urine Nitrite Negative Ur Leukocyte Esterase Large (3+) H Urine RBC 0-2 Urine WBC >50 H Ur Squamous Epith Cells 0-2 Urine Bacteria None Seen Hyaline Casts 3-5 COVID-19 ([facility]) COVID-19 Clin Com Imaging Radiologist's Impressions: Impressions Chest X-Ray 07/25/23 02:55 IMPRESSION: * Large left pleural effusion with slightly improved aeration in the left upper lobe. * Small right pleural effusion. Chest X-Ray 07/25/23 09:00 IMPRESSION: * No significant change. * Near complete opacification of the left lung except for the left lung apex probably large pleural effusion, cannot rule out underlying infiltrate and/or atelectasis. * Small right subpulmonic pleural effusion. Assessment and Plan (1) Pleural effusion: Status: Acute Plan 88M LTC at [facility], [facility] persistent afib, chronic hypoxic respiratory failure on 2L, chronic diastolic chf, history of PE, htn, obesity, pacer, sent from [place] after CT from 2 days ptp showed large left effussion large left effusion plan for chest tube today, check fluid labs chronic hyopxic resp failure stable on 2L chronic diastolic chf lasix obesity weight loss persistent afib xarelto, history of pe xarelto full code patient with significant effusion requiring chest tube and close monitoring, expected to require atleast 2 midngiths inpatietn Time Spent With Patient Time: Total time managing care of this patient today ____ minutes. Quality Stroke Does the patient have a stroke diagnosis?: No VTE Prior VTE?: Yes VTE Risk Level:: Medical - moderate - high VTE Device Contraindication: Treatment Not Indicated VTE Drug Contraindication: N/A - Med Ordered
[2023-07-25] MEDS: Valsartan 40 MG TABLET PO (11:16)
[2023-07-25] MEDS: Isosorbide Mononitrate 30 MG TAB.ER.24H PO (11:16)
--- NOTE | 2023-07-25 13:50 | MHC.EDTECH ---
Patient finished 100% of lunch. Pt cleaned up, repositioned in bed and lights dimmed per Pt request. Call perez/urinal/tissues within reach.
--- NOTE | 2023-07-25 15:02 | PC.NURSE ---
patient ate his lunch, appears to be in no distress, respirations equal and unlabored. patient repositioned in bed given warm blanket
[2023-07-25] MEDS: Gabapentin 300 MG CAPSULE PO (15:36)
[2023-07-25] MEDS: LORazepam 0.5 MG TABLET PO (15:36)
[2023-07-25] MEDS: Acetaminophen 325 MG TABLET 975 MG PO (15:36)
[2023-07-25] MEDS: Lidocaine HCl 1 % 20 ML VIAL SUBCUT (16:00)
[2023-07-25] MEDS: Morphine Sulfate 4 MG/ML CARTRIDGE IVPUSH (16:00)
--- NOTE | 2023-07-25 16:13 | ECG_ITS ---
Test Reason : CHEST PAIN Blood Pressure : / mmHG Vent. Rate : 111 BPM Atrial Rate : 115 BPM P-R Int : 000 ms QRS Dur : 084 ms QT Int : 358 ms P-R-T Axes : 000 002 248 degrees QTc Int : 486 ms Ventricular-paced rhythm T-wave inversion in Inferior leads QRS duration has decreased Abnormal ECG When compared with ECG of 25-JUL-2023 07:44, Vent. rate has increased BY 4 BPM T-wave inversion in Inferior leads is new Referred By: Rudy Trevino Electronically Signed By:LEBRON RAMÍREZ MD
--- NOTE | 2023-07-25 16:14 | PC.NURSE ---
chest tube placed by dr may, pt given 2mg morphine verbal order. after chest tube was placed pt became pale and diaphoretic. patient heart rate 100-120s, resp rate 37, bp 82/46. ekg being obtained.
--- NOTE | 2023-07-25 16:22 | PC.NURSE ---
patient is diaphoretic, heart rate is 88, patient prssure is 68/45. patient resp rate is 26. patient initial chest utb eout put is 2000ml fish blood
--- NOTE | 2023-07-25 16:35 | PC.NURSE ---
PT PALE AND DIAPHORETIC HE IS NO LONGER RESPONDING. NS BOLUS IS INFUSING WIDE OPEN. DR PHILLIPS CALLED TO BEDSIDE TO ASSESS FOR ADVANCED AIRWAY PLACEMENT. BVM ASSIST
[2023-07-25] MEDS: Hum Prothrombin Cplx(PCC)4Fact 2,000 UNIT in Container,Empty 0 ML 480 UNIT IV (17:23)
[2023-07-25 17:51] LABS: Hematocrit 26.7 % (42.0-52.0); Hemoglobin 8.4 g/dl (14.0-18.0); Mean Corpuscular HGB Conc 31.5 g/dl (31.0-36.0); Mean Corpuscular Hemoglobin 30.5 pg (27.0-33.0); Mean Corpuscular Volume 97.1 fL (80.0-98.0); Mean Platelet Volume 10.3 fL (9.4-12.4); Platelet Count 234 X10*3/uL (160-400); Red Blood Count 2.75 X10*6/uL (4.60-5.80); Red Cell Distribution Width 15.5 % (11.0-16.0); White Blood Count 12.8 X10*3/uL (4.8-10.8)
[2023-07-25 18:10] LABS: Band Neutrophils Percent 5 % (3-5); Lymphocytes Absolute Manual 0.6 X10*3/uL (1.2-4.9); Lymphocytes Percent Manual 5 % (20-40); Monocytes Absolute Manual 0.4 X10*3/uL (0.1-1.2); Monocytes Percent Manual 3 % (2-11); Neutrophils Absolute Manual 11.8 X10*3/uL (2.0-8.3); Neutrophils Percent Manual 87 % (45-73)
[2023-07-25 18:11] LABS: Burr Cells 1+ (0-2) /OIF; Platelet Estimate NORMAL (NORMAL); Platelet Morphology Comment NORMAL; RBC Morphology NOTED
--- NOTE | 2023-07-25 18:46 | HO.THORCON_ITS ---
History of Present Illness Consult details Consult date: 07/25/23 Narrative: Patient is an 88-year-old very frail elderly man from an extended care facility presents here because of a massive left pleural effusion with mediastinal shift and a small pericardial fluid collection. Patient has a plethora of medical problems and is currently on significant number of meds ,including Xarelto. Chart was reviewed patient evaluated. Patient is in no acute severe respiratory distress but has some mild labored respirations. He denies any productive cough or sputum. He does not recall any specific trauma to his chest. [facility] Past Medical History Medical History (Updated 07/28/23 @ 08:04 by Loan Ashley MD) Presence of permanent cardiac pacemaker Paroxysmal atrial fibrillation Acute kidney injury Sepsis secondary to UTI Pneumonitis Diastolic CHF Presence of permanent cardiac pacemaker Atrial fibrillation Stasis dermatitis Hypomagnesemia HTN (hypertension) Hypoxia DVT (deep venous thrombosis) History of pulmonary embolism Gout BPH (benign prostatic hyperplasia) CHF (congestive heart failure) COPD (chronic obstructive pulmonary disease) Family History Family History Other HTN (hypertension) Heart disease Surgical History Surgical History Status post placement of cardiac pacemaker Social History Social History Household Members: Unknown / Unable to assess Housing: Assisted Living Facility Do you presently have visiting nurse or other home services: No Unable to assess alcohol history related to: Unknown Alcohol intake: never Patient Tobacco Use Status: Former Tobacco user Advance Directives Date on File: 07/13/21 service: No Current occupational status: retired Meds Allergies Allergy/AdvReac Type Severity Reaction Status Date / Time levofloxacin [LEVOFLOXACIN] Allergy Severe HYPOTENSION Verified 05/12/23 13:12 Penicillins [PCN] Allergy Severe DIFFICULTY Verified 05/12/23 13:12 BREATHING,RASH penicillin V Allergy Unknown sob/rash Verified 05/12/23 13:12 quinine [QUININE] Allergy Unknown UNKNOWN, ? Verified 05/12/23 13:12 Sulfa (Sulfonamide Allergy Unknown UNSURE Verified 05/12/23 13:12 Antibiotics) [SULFA(SULFONAMIDE ANTIBIOTICS)] morphine [MORPHINE] AdvReac Intermediate HYPOTENSION Verified 05/12/23 13:12 MUSCLE RELAXERS Allergy Severe RASH/IMMOBI Uncoded 05/12/23 13:12 LITY Active Medications: Current Medications Albuterol Sulfate (Albuterol Sulfate 90 Mcg 8 Gm Inhaler) 2 puff INHALE Q4H PRN PRN Reason: Shortness Of Breath Chlorhexidine Gluconate (Chlorhexidine Gluc Oral Rinse 15 Ml Mouthwash) 15 ml BUCCAL TID [facility] Ceftriaxone Sodium 1 gm/ (Sodium Chloride) 50 mls @ 100 mls/hr IV Q24H [facility] Propofol (Diprivan) 1,000 mg in 100 mls @ 0 mls/hr IVCONT .Q0M [facility]IEJ; Protocol Norepinephrine Bitartrate (Levophed) 8 mg in 250 mls @ 0 mls/hr IV .Q0M [facility]; Protocol Propofol (Diprivan) 1,000 mg in 100 mls @ 0 mls/hr IVCONT .Q0M [facility]; Protocol Cefazolin Sodium/Dextrose (Ancef) 2 gm in 50 mls @ 100 mls/hr IV ONCE ONE Stop: 07/25/23 18:59 Epinephrine 5 mg/ Dextrose 255 mls @ 0 mls/hr IVCONT .Q0M [facility]; Protocol Omeprazole (Omeprazole/Na Bicarb Oral Susp 20 Mg/10 Ml Ud Cup) 40 mg PO DAILY@0630 [facility] Sodium Chloride (0.9 % Sodium Chloride Flush 3 Ml Syringe) 3 ml IVFLUSH QSHIFT [facility] Home Medications Medication Instructions Recorded Confirmed Last Taken Type allopurinol 300 mg tablet 1 tab PO DAILY 06/21/21 07/25/23 03/01/22 History escitalopram oxalate 20 mg tablet 1 tab PO DAILY 06/21/21 07/25/23 03/01/22 History fenofibrate 160 mg tablet 1 tab PO DAILY 06/21/21 07/25/23 03/01/22 History fluticasone furoate 100 1 puff inhalation DAILY 06/21/21 07/25/23 03/01/22 History mcg-vilanterol 25 mcg/dose inhalation powder (Breo Ellipta) furosemide 20 mg tablet 3 tab PO QAM 06/21/21 07/25/23 03/01/22 History gabapentin 300 mg capsule 1 cap PO TID 06/21/21 07/25/23 03/01/22 History tamsulosin 0.4 mg capsule 2 cap PO DAILY@1700 09/08/0107/25/23 03/01/22 History valsartan 40 mg tablet 1 tab PO QAM 06/21/21 07/25/23 03/01/22 History trazodone 150 mg tablet 1 tab PO BEDTIME 07/29/21 07/25/23 03/01/22 History acetaminophen 325 mg tablet 975 mg PO TID 03/02/22 07/25/23 03/01/22 History bisacodyl 10 mg rectal suppository 10 mg MN Q24H PRN Constipation 03/02/22 07/25/23 Unknown History (Dulcolax (bisacodyl)) isosorbide mononitrate 30 mg 30 mg PO QAM 03/02/22 07/25/23 03/01/22 History tablet,extended release 24 hr lorazepam 0.5 mg tablet 0.5 mg PO TID 03/02/22 07/25/23 03/01/22 History magnesium hydroxide 400 mg/5 mL 30 ml PO Q24H PRN Constipation 03/02/22 07/25/23 Unknown History oral suspension (Milk of Magnesia) pantoprazole 40 mg tablet,delayed 40 mg PO BID@0630,1630 03/02/22 07/25/23 03/01/22 History release (Protonix) bicalutamide 50 mg tablet (Casodex) 50 mg PO DAILY 05/12/23 07/25/23 Unknown History d-mannose 500 mg capsule (AZO 1,000 mg PO BID 05/12/23 07/25/23 Unknown History D-Mannose) albuterol sulfate 90 mcg/actuation 2 puff inhalation Q4H PRN 07/25/23 07/25/23 Unknown History aerosol inhaler Shortness Of Breath ammonium lactate 12 % topical cream 1 appl topical BID 07/25/23 07/25/23 Unknown History ceftriaxone 1 gram solution for 1 g IM QPM uti 07/25/23 07/25/23 Unknown History injection docusate sodium 100 mg capsule 100 mg PO DAILY 07/25/23 07/25/23 Unknown History guaifenesin 600 mg tablet, 600 mg PO Q12H PRN Cough 07/25/23 07/25/23 Unknown History extended release 12 hr magnesium oxide 400 mg (241.3 mg 400 mg PO BID 07/25/23 07/25/23 Unknown History magnesium) tablet melatonin 10 mg tablet 10 mg PO BEDTIME 07/25/23 07/25/23 Unknown History nystatin 100,000 unit/gram topical 1 appl topical BID rash 07/25/23 07/25/23 Unknown History powder rivaroxaban 10 mg tablet (Xarelto) 10 mg PO DAILY 07/25/23 07/25/23 Unknown History sodium phosphates 19 gram-7 118 ml MN Q3D PRN Constipation 07/25/23 07/25/23 Unknown History gram/118 mL enema (Fleet Enema) Physical Exam 2 Vital Signs: Vital Signs: Last Vital Signs Temp 98.1 F 07/25/23 10:37 Pulse 83 07/25/23 16:13 Resp 23 H 07/25/23 16:13 BP 104/48 L 07/25/23 13:52 Pulse Ox 97 07/25/23 13:52 O2 Del Method Nasal Cannula 07/25/23 16:13 O2 Flow Rate 2 07/25/23 13:52 FiO2 60 07/25/23 16:35 Oxygen Flow Rate 2 07/25/23 02:10 BMI result Body Mass Index 35.1 Const: Other: Elderly male. 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 Chest: Other: Right chest breath sounds. Left chest absolutely no breath sounds. Left chest pacemaker GI: Other: Moderately corpulent soft abdomen Results Labs 07/28/23 04:35 07/28/23 04:35 Labs: Abnormal lab results 07/25/23 07/25/23 07/25/23 Range/Units 03:01 08:06 08:07 WBC 4.5 L (4.8-10.8) X10*3/uL RBC 3.70 L (4.60-5.80) X10*6/uL Hgb 10.8 L (14.0-18.0) g/dl Hct 34.3 L (42.0-52.0) % MPV 9.2 L (9.4-12.4) fL Lymph % (Auto) 14.5 L (20-40) % Eos % (Auto) 4.2 H (0-4) % Lymph # (Auto) 0.7 L (1.2-4.9) X10*3/uL Neutrophils % (Manual) (45-73) % Lymphocytes % (Manual) (20-40) % Abs Neuts (Manual) (2.0-8.3) X10*3/uL Lymphocytes # (Manual) (1.2-4.9) X10*3/uL BUN 26 H (9-16) mg/dL B-Natriuretic Peptide 167 H (<100) pg/mL Urine Protein 30 (1+) H (Neg-Trace) mg/dL Urine Blood Moderate (2+) H (Negative) Ur Leukocyte Esterase Large (3+) H (Negative) Urine RBC 3-5 H (0-2) /HPF Urine WBC (0-5) /HPF Crossmatch 07/25/23 07/25/23 07/25/23 Range/Units 08:34 16:33 17:47 WBC 12.8 H (4.8-10.8) X10*3/uL RBC 2.75 L D (4.60-5.80) X10*6/uL Hgb 8.4 L D (14.0-18.0) g/dl Hct 26.7 L D (42.0-52.0) % MPV (9.4-12.4) fL Lymph % (Auto) (20-40) % Eos % (Auto) (0-4) % Lymph # (Auto) (1.2-4.9) X10*3/uL Neutrophils % (Manual) 87 H (45-73) % Lymphocytes % (Manual) 5 L (20-40) % Abs Neuts (Manual) 11.8 H (2.0-8.3) X10*3/uL Lymphocytes # (Manual) 0.6 L (1.2-4.9) X10*3/uL BUN (9-16) mg/dL B-Natriuretic Peptide (<100) pg/mL Urine Protein 30 (1+) H (Neg-Trace) mg/dL Urine Blood Small (1+) H (Negative) Ur Leukocyte Esterase Large (3+) H (Negative) Urine RBC (0-2) /HPF Urine WBC >50 H (0-5) /HPF Crossmatch See Detail Short CBC 07/25/23 07/25/23 Range/Units 08:07 17:47 WBC 4.5 L 12.8 H (4.8-10.8) X10*3/uL Hgb 10.8 L 8.4 L D (14.0-18.0) g/dl Hct 34.3 L 26.7 L D (42.0-52.0) % Plt Count 246 D 234 (160-400) X10*3/uL BMP 07/25/23 08:07 Sodium 143 Potassium 4.6 D Chloride 102 Carbon Dioxide 29 BUN 26 H Creatinine 1.12 Calcium 9.8 Liver Function 07/25/23 Range/Units 08:07 Total Bilirubin 0.4 (0.0-1.0) mg/dL Direct Bilirubin 0.1 (0.0-0.5) mg/dL AST 25 (5-37) U/L ALT 9 (0-40) U/L Alkaline Phosphatase 41 (39-117) U/L Albumin 4.0 (3.5-5.0) g/dL Urine 07/25/23 07/25/23 Range/Units 03:01 08:34 Urine Color Yellow Yellow Urine Appearance Cloudy Turbid Urine pH 6.0 5.5 (5.0-9.0) Ur Specific [place] 1.025 1.020 (1.005-1.025) Urine Protein 30 (1+) H 30 (1+) H (Neg-Trace) mg/dL Urine Glucose (UA) Negative Negative (Negative) mg/dL All other labs normal. Assessment and Plan (1) Pleural effusion: Status: Acute (2) Pericardial effusion: Status: Acute Plan I discussed with the patient his pleural fluid collection which is quite voluminous has completely compressed is entire left lung. We talked about different etiologies ,including possibly related to his Xarelto resulting in a hemo thorax.. Risks, benefits, alternatives of mini chest tube placement reviewed with the patient and included but not limited to recurrent bleeding, infection, recurrence of fluid, numbness, pain, scarring , and the patient wished to proceed. All questions were answered. Please see procedure notes.; post procedures, patient was transferred to the ICU for continued restorative measures Time Spent With Patient Time: Total time managing care of this patient today ____ minutes. Procedures Date of Service Date of Service: 07/28/23 Chest Tube Chest Tube 1: Chest tube location: Anterior Chest Chest tube procedure: Yes betadine prep and sterile drapes applied Tube sutured to skin: Yes Sterile dressing applied: Yes Anesthesia: 1% Lidocaine Progress: After appropriate positioning, patient was given 2 mg IV morphine , and the left chest was prepped and draped in usual sterile fashion. Using 1% lidocaine in the anterior axillary line in the 6th intercostal space, the proposed chest tube site was anesthetized and the chest cavity was entered with the aspirating needle ,where bloody fluid was retrieved. This is highly consistent with a suspected left hemo thorax. Using Seldinger technique, the left chest cavity was accessed with uneventful placement of pigtail mini chest tube. Tube was secured to the skin using 0 silk suture. Chest tube was connected to the Pleur-evac and approximately 1 L of bloody fluid was initially retrieved. Chest tube was then clamped. After a period time, chest tube was reopened to suction where another Liter was retrieved. Chest tube was clamped again. Patient became vasovagal, and consideration was made for Possible re-expansion pulmonary edema . Chest tube remained clamped. Also patient is elderly and frail and a concern was that he may have reacted to the IV morphine push. The patient was given IV fluids and observed. In the interim, Portable chest x-ray was obtained which demonstrated complete resolution of the left pleural effusion/hemothorax, with chest tube in good position. Continue restorative measures were undertaken. Patient became hypotensive and semi arousable. Resuscitative measures were undertaken. Please refer to ER work sheet regarding this, which included intubation, MTP and administration of K-centra. Patient seemed to have stabilized. He then went into a ventricular fibrillation and my concern is that perhaps the chest tube was irritating the heart causing this dysrhythmia and the chest tube was then removed ,which resolved the ventricular dysrhythmia. Among other measures undertaken, again referred ER work sheet, patient underwent a cardiac FAST exam which demonstrated fluid within the pericardial sac and concern was for pericardial tamponade. A thoracotomy trauma set was not immediately available and initial pericardiocentesis was attempted under sonographic guidance with limited success. In the meantime, the OR team was summoned and eventually, chest/thoracotomy Tray was brought to the ER. Because of the patient's marked instability, it was decided to perform subxiphoid pericardial window in the ER. Emergent subxiphoid pericardial window was performed with the chest prepped with Betadine, and a subxiphoid incision was made and carried down through skin, subcutaneous tissue, linea alba, and pericardium was entered where approximately 100 cc of bloody pericardial fluid was drained, and this resulted in marked improvement in the patient's hemodymanics. Through a left upper quadrant separate wound incision, a large Granado catheter is placed into the pericardium. This was secured to the skin using 0 silk suture and connected to a granado bag. Wound was secured for hemostasis and closed in the following manner; mass closure using 0 Vicryl used to close perineum and fascia.. Skin was closed using skin radha. Sterile dressings were applied. Patient was transferred directly to the ICU for continued restorative measures. Emergency Beside Thoracotomy Pericardiotomy performed: yes and clots/blood evacuated Additional comments: Please see above note regarding subxiphoid pericardial window in chest tube portion of dictation.
[2023-07-25] MEDS: iohexoL 350 MG/ML 100 ML INFUS..BTL IV (19:08)
[2023-07-25 19:35] LABS: Basophils Absolute Auto 0.1 X10*3/uL (0.0-0.2); Basophils Percent Auto 0.4 % (0-2); Eosinophils Absolute Auto 0.2 X10*3/uL (0.0-0.4); Eosinophils Percent Auto 0.7 % (0-4); Hematocrit 39.1 % (42.0-52.0); Hemoglobin 12.7 g/dl (14.0-18.0); Imm Gran Abs Auto 1.12 X10*3/uL (0.00-0.03); Imm Gran Pct Auto 4.4 % (0.0-0.4); Lymphocytes Absolute Auto 2.8 X10*3/uL (1.2-4.9); Lymphocytes Percent Auto 10.9 % (20-40); MANUAL DIFF FLAG SCAN; Mean Corpuscular HGB Conc 32.5 g/dl (31.0-36.0); Mean Corpuscular Hemoglobin 31.7 pg (27.0-33.0); Mean Corpuscular Volume 97.5 fL (80.0-98.0); Mean Platelet Volume 9.8 fL (9.4-12.4); Monocytes Absolute Auto 0.9 X10*3/uL (0.1-1.2); Monocytes Percent Auto 3.3 % (2-11); Neutrophils Absolute Auto 20.7 x10*3/uL (2.0-8.3); Neutrophils Percent Auto 80.3 % (45-73); Platelet Count 244 X10*3/uL (160-400); Red Blood Count 4.01 X10*6/uL (4.60-5.80); Red Cell Distribution Width 15.3 % (11.0-16.0); SCAN SMEAR FLAG 1; White Blood Count 25.7 X10*3/uL (4.8-10.8)
[2023-07-25] MEDS: Norepinephrine Bitartrate/D5W 8 MG/250 ML PLAST..BAG 190.51 MG IV (19:42)
--- NOTE | 2023-07-25 19:48 | PC.NURSE ---
late entry patient had bed side chest tube placed by MD Renee, patient given 2mg morphine verbal order for pain. prior to chest tube insertion patient VSS, patient alert and oriented, speaking in full sentences. Chest tube drained initial 2000ml of fish red blood into 2 chest tube containers. patient became diaphoretic, pale, and unrousable. ED MD made aware and emergency intubation was performed at 1635, pt given 20 etomidate aqnd 50 of rocoronium. CPR was started at 1637 when patient lost pulses and epi was given. epi given at 1640 with 6 rounds before positive palpable pulse. patient started on mass transfusion protocol 1629 FFP unit # [id number] @1653 FFP unit # [id number] @ 1826 PLT unit # [id number] @ 1826 RBC unit #[id number] @ 1645 RBC unit #[id number] @ 1653 RBC unit #[id number] @ 1710 RBC unit #[id number] @ 1717 RBC unit #[id number] @ 1847 RBC unit #[id number] RBC unit #[id number] RBC unit #[id number] patient went into cardiac arrest a second time at 1751 epi was given at 1752 with positive pulse return at 1800 1747 pericardiocentesis was unsuccessful at bedside done by MD Renee and MD caputo 1610 Thoracotomy was started 100 ml of blood was removed by suction into container Vital signs are as follows 1629 pulse 99 bp 50/75 1635 pulse 98 1645 pulse 80 bp 108/46 1658 pulse 106 bp 64/36 1723 pulse 93 bp 103/52 1708 bp 73/32 1712 bp 73/22 1801 bp 95/25 1810 bp 60/25 pulse 80 1812 bp 72/37 pulse 92 1816 bp 81/27 pulse 76 1822 bp 99/46 pulse 94 Medications given 2 mg morphine iv verbal order dr renee pain 20 etomidate 1634 50 rocuronium 1634 propofol started at 1750 30 mcg/kg/hr titrated up for agitation to 40 mcg/kg/hr Levo started 0.5 mcg 1708 bp 73/32 pulse 90 levo titrated up 0.10 mcg bp 103/52 pulse 93 map 69 Kaycentra 1723 2000 units in 80 ml epi push 1816 epi drip 0.2mcg 1836 patient was brought to ct scan and then icu, bedside report given to JONA Allen
[2023-07-25 19:50] LABS: Lactic Acid 8.8 mmol/L (0.5-2.0)
[2023-07-25 19:51] LABS: Alanine Aminotransferase 58 U/L (0-40); Albumin Level 2.8 g/dL (3.5-5.0); Alkaline Phosphatase 47 U/L (39-117); Anion Gap 25 (12-20); Aspartate Amino Transferase 133 U/L (5-37); Bilirubin Total 0.7 mg/dL (0.0-1.0); Blood Urea Nitrogen 23 mg/dL (9-16); Calcium 7.8 mg/dL (8.4-10.2); Carbon Dioxide 15 mmol/L (22-29); Chloride 104 mmol/L (96-108); Creatinine Clr Calc Pharmacy 43.9; Estimated Glomerular Filt Rate 49; Glucose Random 443 mg/dL (60-115); Potassium 3.7 mmol/L (3.3-5.1); Sodium 140 mmol/L (135-145); Total Protein 4.8 g/dL (6.5-8.0)
[2023-07-25 19:52] LABS: Fibrinogen 313 MG/DL (259-690); INTERNATIONAL NORM RATIO 1.2 (0.9-1.1); Prothrombin Time 14.2 SEC (11.1-13.3); SLIDE REVIEW VERIFIED
[2023-07-25] MEDS: EPINEPHrine 5 MG in Dextrose 5 % 250 ML 186.55 MG IVCONT (19:54)
[2023-07-25] MEDS: fentaNYL citrate/NS 1,000 MCG/100 ML PLAST..BAG 10 MCG IVCONT (19:54)
[2023-07-25 19:56] LABS: Troponin-I High Sensitivity 191.5 ng/L (<3.5-35.0)
[2023-07-25 20:11] LABS: ABG Base Excess -12.4 mmol/L; ABG HCO3 14 mmol/L (22-26); ABG pCO2 38 mmHg (32-45); ABG pH 7.19 (7.35-7.45); ABG pO2 76 mmHg (83-108)
--- NOTE | 2023-07-25 20:12 | HO.HCP ---
Health Care Proxy Invocation Health Care Proxy Declaration: Rudy Saavedra, on the date cited below, have determined that, Leonidas Linder, lacks the capacity to make or communicate, informed health care decision. This determination is made in accordance with accepted standards of medical judgment and pursuant to [place], the [place] Health Care Proxy Law. The cause, nature, extent and probable duration of the patient's inapacity are described below: Cause: intubated, sedated after cardiac arrest x2 Nature: organic Extent: severe Probable Duration of Patient's Incapacity: unclear
--- NOTE | 2023-07-25 20:13 | W.PM.CCHP ---
Procedures Date of Service Date of Service: 07/25/23 Chest Tube Chest Tube 1: Chest tube location: Mid-Clavicular Chest Progress: After obtaining informed consent right midclavicular chest tube placed in 3rd intercostal space for pneumothorax while on ventilatory support with no immediate complications. Approximately 200 cc of serosanguineous fluid drained. Air aspirated and bubbled through the chamber after chest tube placement. Patient tolerated the procedure well. Chest tube left on-20 cm water section. X-ray for tube position is pending.
[2023-07-25 20:23] LABS: Basophils Absolute Auto 0.1 X10*3/uL (0.0-0.2); Basophils Percent Auto 0.3 % (0-2); Eosinophils Absolute Auto 0.1 X10*3/uL (0.0-0.4); Eosinophils Percent Auto 0.4 % (0-4); Hematocrit 44.3 % (42.0-52.0); Hemoglobin 14.6 g/dl (14.0-18.0); Imm Gran Abs Auto 0.96 X10*3/uL (0.00-0.03); Imm Gran Pct Auto 3.4 % (0.0-0.4); Lymphocytes Absolute Auto 2.4 X10*3/uL (1.2-4.9); Lymphocytes Percent Auto 8.6 % (20-40); MANUAL DIFF FLAG SCAN; Mean Corpuscular Hemoglobin 31.5 pg (27.0-33.0); Mean Corpuscular Volume 95.7 fL (80.0-98.0); Monocytes Absolute Auto 0.6 X10*3/uL (0.1-1.2); Monocytes Percent Auto 2.2 % (2-11); Neutrophils Percent Auto 85.1 % (45-73); Platelet Count 268 X10*3/uL (160-400); Red Blood Count 4.63 X10*6/uL (4.60-5.80); Red Cell Distribution Width 15.2 % (11.0-16.0); SCAN SMEAR FLAG 1; White Blood Count 28.2 X10*3/uL (4.8-10.8)
[2023-07-25] MEDS: propofoL 1,000 MG/100 ML VIAL 18.29 MG IVCONT (20:24)
[2023-07-25 20:44] LABS: Magnesium 1.9 mg/dL (1.6-2.6); Phosphorus 7.7 mg/dL (2.7-4.5)
[2023-07-25 20:44] LABS: ABG Refer to POC result
[2023-07-25] MEDS: Sodium Bicarbonate 8.4% 150 MEQ in Dextrose 5 % 850 ML 100 MEQ IV (20:53)
[2023-07-25] MEDS: Norepinephrine Bitartrate/D5W 8 MG/250 ML PLAST..BAG 182.89 MG IV ×2 (21:03→22:11)
[2023-07-25] MEDS: Chlorhexidine Gluc Oral Rinse 15 ML MOUTHWASH BUCCAL (21:09)
[2023-07-25 21:29] LABS: Reflex Lactate? Lactic Acid Added
[2023-07-25] MEDS: Albumin Human 25 % 100 ML IV (22:03)
[2023-07-25] MEDS: 0.9 % Sodium Chloride Flush 3 ML SYRINGE IVFLUSH (22:06)
--- NOTE | 2023-07-25 22:09 | PM.CCPN ---
Subjective Subjective Date of Service: 07/25/23 Critical Care Time (minutes): 75 Comment: Mr. Linder is an 88-year-old male who resides at [facility] with past medical history of persistent AFib on Xarelto, chronic hypoxic respiratory failure on 2 L, chronic diastolic CHF,? history of PE, HTN, obesity, pacemaker? who was sent from [place] after CT from 2 days ptp showed large left effusion. The CT was ordered for hemoptysis, sob, and productive cough x 1 week.? He was also on Rocephin for UTI. While in the ED, a chest tube was placed in the left upper chest and a total of approximately 3 L bloody fluid was retrieved into the Pleur-evac. CXR demonstrated complete resolution of the left pleural effusion, however, the procedure was complicated by cardiac arrest due to hemorrhagic shock. He was intubated and a central line was placed. The patient underwent multiple cycles of CPR. ROSC was achieved after multiple units of RBCs and FFP along with Kcentra. He stabilized but then went into ventricular fibrillation. The chest tube was removed which resolved the ventricular dysrhythmia. An ECHO during this event showed a moderate pericardial effusion with signs of cardiac tamponade on US. Pericardiocentesis was attempted under sonographic guidance with limited success. An emergent subxiphoid pericardial window was performed and approximately 100 cc of bloody pericardial fluid was drained. A large Robertson catheter was placed into the pericardium and sutured in place. A chest CT was done and the patient was transferred to the ICU. The chest CT showed approximately 60% right hydropneumothorax with associated atelectasis, large amount of left pleural fluid with associated atelectasis. A right midclavicular chest tube was placed by Dr. Trevino on arrival to the floor. Physical Exam Vital Signs: Vital Signs: Last Vital Signs Temp 97.5 F 07/25/23 21:00 Pulse 92 07/25/23 21:00 Resp 17 07/25/23 21:00 BP 121/62 07/25/23 21:00 Pulse Ox 98 07/25/23 21:00 O2 Del Method Mechanical Ventil ation 07/25/23 21:00 O2 Flow Rate 2 07/25/23 13:52 FiO2 60 07/25/23 21:00 Oxygen Flow Rate 2 07/25/23 02:10 BMI result Body Mass Index 35.1 HEENT: Head: Yes normocephalic and Yes atraumatic General nose exam: Normal external nose present (Nares patent, septum midline, sinuses nontender bilaterally.) Throat: Yes other (No erythema, no exudate.) Neck: Neck: Yes supple (no thyromegaly, trachea midline.) Resp: Auscultation: clear to auscultation bilaterally, no crackles, no rales, no rhonchi and no wheezes Cardio: Jugular venous distension: no JVD Rate: regular rate Rhythm: abnormal rhythm with ectopic beats Heart sounds: no gallops, no murmurs and no rubs Peripheral pulses: popliteal pulses present bilateral 1+, posterior tibial pulses present and dorsalis pedis present (Doppler) GI: Inspection: Yes distended (left side) Palpation (GI): Soft to palpation and nontender Auscultation: Hypoactive bowel sounds present Skin: Other: Right midclavicular chest tube Pericardial drain General skin exam: ecchymosis (Bilateral hands) Nails: yellow and thickened (Bilateral feet) Extrem: General: Yes full ROM, No capillary refill normal and Yes venous stasis dermatitis Objective Data Labs 07/26/23 04:44 07/26/23 04:44 Labs: Laboratory Results - last 24 hr 07/25/23 07/25/23 07/25/23 03:01 08:06 08:07 WBC 4.5 L RBC 3.70 L Hgb 10.8 L Hct 34.3 L MCV 92.7 MCH 29.2 MCHC 31.5 RDW 15.4 Plt Count 246 D MPV 9.2 L Immature Gran % (Auto) 0.4 Neut % (Auto) 71.2 Lymph % (Auto) 14.5 L [place] % (Auto) 9.3 Eos % (Auto) 4.2 H Baso % (Auto) 0.4 Lymph # (Auto) 0.7 L [place] # (Auto) 0.4 Eos # (Auto) 0.2 Baso # (Auto) 0.0 Abs Immat Gran (auto) 0.02 Absolute Neuts (auto) 3.2 Absolute Nucleated RBC 0.000 Nucleated RBC % (auto) 0.0 Neutrophils % (Manual) Band Neutrophils % Lymphocytes % (Manual) Monocytes % (Manual) Abs Neuts (Manual) Lymphocytes # (Manual) Monocytes # (Manual) Platelet Estimate Plt Morphology Comment RBC Morphology Nish Cells Smear Tech's Comments PT INR Fibrinogen O2 Saturation ABG pH at Pt Temp ABG pCO2 at Pt Temp ABG pO2 at Pt Temp ABG HCO3 ABG Base Excess (Actual) Sodium 143 Potassium 4.6 D Chloride 102 Carbon Dioxide 29 Anion Gap 17 BUN 26 H Creatinine 1.12 Estim Creat Clear Calc 53.7 Estimated GFR > 60 Random Glucose 97 Lactic Acid Calcium 9.8 Phosphorus Magnesium Total Bilirubin 0.4 Direct Bilirubin 0.1 AST 25 ALT 9 Alkaline Phosphatase 41 Troponin I High Sens < 2.7 B-Natriuretic Peptide 167 H Total Protein 7.2 Albumin 4.0 Lipase 62 Urine Color Yellow Urine Appearance Cloudy Urine pH 6.0 Ur Specific [place] 1.025 Urine Protein 30 (1+) H Urine Glucose (UA) Negative Urine Ketones Negative Urine Blood Moderate (2+) H Urine Nitrite Negative Ur Leukocyte Esterase Large (3+) H Urine RBC 3-5 H Urine WBC >50 Ur Squamous Epith Cells 0-2 Urine Bacteria Trace Hyaline Casts 0-2 COVID-19 (ESAU) Negative COVID-19 Clin Com See Note Blood Type Antibody Screen Crossmatch 07/25/23 07/25/23 07/25/23 08:34 17:47 19:24 WBC 12.8 H RBC 2.75 L D Hgb 8.4 L D Hct 26.7 L D MCV 97.1 MCH 30.5 MCHC 31.5 RDW 15.5 Plt Count 234 MPV 10.3 Immature Gran % (Auto) Cancelled Neut % (Auto) Cancelled Lymph % (Auto) Cancelled [place] % (Auto) Cancelled Eos % (Auto) Cancelled Baso % (Auto) Cancelled Lymph # (Auto) Cancelled [place] # (Auto) Cancelled Eos # (Auto) Cancelled Baso # (Auto) Cancelled Abs Immat Gran (auto) Cancelled Absolute Neuts (auto) Cancelled Absolute Nucleated RBC 0.000 Nucleated RBC % (auto) 0.0 Neutrophils % (Manual) 87 H Band Neutrophils % 5 Lymphocytes % (Manual) 5 L Monocytes % (Manual) 3 Abs Neuts (Manual) 11.8 H Lymphocytes # (Manual) 0.6 L Monocytes # (Manual) 0.4 Platelet Estimate NORMAL Plt Morphology Comment NORMAL RBC Morphology NOTED [place] Cells 1+ (0-2) Smear Tech's Comments PT INR Fibrinogen O2 Saturation ABG pH at Pt Temp ABG pCO2 at Pt Temp ABG pO2 at Pt Temp ABG HCO3 ABG Base Excess (Actual) Sodium Potassium Chloride Carbon Dioxide Anion Gap BUN Creatinine Estim Creat Clear Calc Estimated GFR Random Glucose Lactic Acid 8.8 H* Calcium Phosphorus Magnesium Total Bilirubin Direct Bilirubin AST ALT Alkaline Phosphatase Troponin I High Sens B-Natriuretic Peptide Total Protein Albumin Lipase Urine Color Yellow Urine Appearance Turbid Urine pH 5.5 Ur Specific [place] 1.020 Urine Protein 30 (1+) H Urine Glucose (UA) Negative Urine Ketones Negative Urine Blood Small (1+) H Urine Nitrite Negative Ur Leukocyte Esterase Large (3+) H Urine RBC 0-2 Urine WBC >50 H Ur Squamous Epith Cells 0-2 Urine Bacteria None Seen Hyaline Casts 3-5 COVID-19 (ESAU) COVID-19 Clin Com Blood Type Antibody Screen Crossmatch 07/25/23 07/25/23 07/25/23 19:25 19:25 19:25 WBC 25.7 H RBC 4.01 L D Hgb 12.7 L D Hct 39.1 L D MCV 97.5 MCH 31.7 MCHC 32.5 RDW 15.3 Plt Count 244 MPV 9.8 Immature Gran % (Auto) 4.4 H Neut % (Auto) 80.3 H Lymph % (Auto) 10.9 L [place] % (Auto) 3.3 Eos % (Auto) 0.7 Baso % (Auto) 0.4 Lymph # (Auto) 2.8 [place] # (Auto) 0.9 Eos # (Auto) 0.2 Baso # (Auto) 0.1 Abs Immat Gran (auto) 1.12 H Absolute Neuts (auto) 20.7 H Absolute Nucleated RBC 0.000 Nucleated RBC % (auto) 0.0 Neutrophils % (Manual) Band Neutrophils % Lymphocytes % (Manual) Monocytes % (Manual) Abs Neuts (Manual) Lymphocytes # (Manual) Monocytes # (Manual) Platelet Estimate Plt Morphology Comment RBC Morphology [place] Cells Smear Tech's Comments VERIFIED PT 14.2 H INR 1.2 H Fibrinogen 313 O2 Saturation ABG pH at Pt Temp ABG pCO2 at Pt Temp ABG pO2 at Pt Temp ABG HCO3 ABG Base Excess (Actual) Sodium 140 Potassium 3.7 Chloride 104 Carbon Dioxide 15 L Anion Gap 25 H BUN 23 H Creatinine 1.37 Estim Creat Clear Calc 43.9 Estimated GFR 49 Random Glucose 443 H* Lactic Acid Calcium Cancelled 7.8 L D Phosphorus 7.7 H Magnesium 1.9 Total Bilirubin 0.7 Direct Bilirubin AST 133 H ALT 58 H Alkaline Phosphatase 47 Troponin I High Sens 191.5 H* D B-Natriuretic Peptide Total Protein 4.8 L Albumin Cancelled 2.8 L Lipase Urine Color Urine Appearance Urine pH Ur Specific [place] Urine Protein Urine Glucose (UA) Urine Ketones Urine Blood Urine Nitrite Ur Leukocyte Esterase Urine RBC Urine WBC Ur Squamous Epith Cells Urine Bacteria Hyaline Casts COVID-19 (ESAU) COVID-19 Clin Com Blood Type Antibody Screen Crossmatch 07/25/23 07/25/23 07/25/23 19:52 20:03 20:05 WBC 28.2 H RBC 4.63 Hgb 14.6 Hct 44.3 MCV 95.7 MCH 31.5 MCHC 33.0 RDW 15.2 Plt Count 268 MPV 10.0 Immature Gran % (Auto) 3.4 H Neut % (Auto) 85.1 H Lymph % (Auto) 8.6 L [place] % (Auto) 2.2 Eos % (Auto) 0.4 Baso % (Auto) 0.3 Lymph # (Auto) 2.4 [place] # (Auto) 0.6 Eos # (Auto) 0.1 Baso # (Auto) 0.1 Abs Immat Gran (auto) 0.96 H Absolute Neuts (auto) 24.0 H Absolute Nucleated RBC 0.000 Nucleated RBC % (auto) 0.0 Neutrophils % (Manual) Band Neutrophils % Lymphocytes % (Manual) Monocytes % (Manual) Abs Neuts (Manual) Lymphocytes # (Manual) Monocytes # (Manual) Platelet Estimate Plt Morphology Comment RBC Morphology [place] Cells Smear Tech's Comments PT INR Fibrinogen O2 Saturation 95.0 ABG pH at Pt Temp 7.19 L* ABG pCO2 at Pt Temp 38 ABG pO2 at Pt Temp 76 L ABG HCO3 14 L ABG Base Excess (Actual) -12.4 Sodium Potassium Chloride Carbon Dioxide Anion Gap BUN Creatinine Estim Creat Clear Calc Estimated GFR Random Glucose Lactic Acid Calcium Phosphorus Magnesium Total Bilirubin Direct Bilirubin AST ALT Alkaline Phosphatase Troponin I High Sens B-Natriuretic Peptide Total Protein Albumin Lipase Urine Color Urine Appearance Urine pH Ur Specific [place] Urine Protein Urine Glucose (UA) Urine Ketones Urine Blood Urine Nitrite Ur Leukocyte Esterase Urine RBC Urine WBC Ur Squamous Epith Cells Urine Bacteria Hyaline Casts COVID-19 (ESAU) COVID-19 Clin Com Blood Type O Positive Antibody Screen NEGATIVE Crossmatch See Detail ABG ABG results: pH 7.19 pCO2 38 pO2 76 HCO3 14 B.E. -12.4 Attestation: I personally reviewed and interpreted this ABG as follows: (Metabolic acidosis) Progress Note: A&P Assessment and plan (1) Cardiac arrest with successful resuscitation: Status: Acute (2) Hemorrhagic shock: Status: Acute (3) Pericardial effusion: Status: Acute (4) Lactic acidosis: Status: Acute (5) Pleural effusion: Status: Acute (6) Pneumothorax: Status: Acute (7) Dyspnea: Status: Acute (8) GIN (acute kidney injury): Status: Acute (9) Acute UTI: Status: Acute (10) Anemia: Status: Acute (11) Hemoptysis: Status: Acute Plan Assessment: 88-year-old male with PMH of persistent AFib on Xarelto, chronic hypoxic respiratory failure on 2 L, chronic diastolic CHF,? history of PE, HTN, obesity, pacemaker admitted for pleural effusion and GIN,? complicated by cardiac arrest due to hemorrhagic shock requiring multiple cycles of CPR and multiple units of blood as well as pericardial effusion with emergent? pericardial window and drain placement. Neuro:? no acute issues Cardiac: S/p cardiac arrest with ROSC, pericardial effusion, hemorrhagic shock requiring multiple transfusions now on pressors and with pericardial drain in place. Titrate off pressors as able. Monitor output from pericardial drain. Appreciate input from surgery, cardiology. Pulmonary: Chronic hypoxic resp failure. S/p chest tube on left for large left pleural effusion with approx 3L out, now with large amount of left pleural fluid with associated atelectasis. Right midclavicular chest tube placed for right hydropneumothorax. Pt is intubated. Monitor output. Appreciate input from surgery. Renal: UTI, GIN. Pt is on ceftriaxone. Monitor I&O and renal function. Replace lytes PRN. Endo: ? No acute issues. GI: Transaminitits. Left abd distended, soft. Hypoactive BS. Consider CT when patient is stable.? ID: UTI with no SARs , started on ceftriaxone. Blood and urine cultures pending. Heme/Onc: As above. Psych: No acute issues. Miscellaneous:? No acute issues. Case discussed with Dr. Trevino. Quality Stroke Does the patient have a stroke diagnosis?: No VTE Prior VTE?: Yes VTE Risk Level:: Medical - moderate - high VTE Device Contraindication: N/A - Device Ordered VTE Drug Contraindication: Treatment Not Indicated
[2023-07-25 22:18] LABS: ~Lactic Acid-LAB USE ONLY 7.5 mmol/L (0.5-2.0)
[2023-07-25] MEDS: Norepinephrine Bitartrate/D5W 8 MG/250 ML PLAST..BAG 175.27 MG IV (23:29)
[2023-07-25] MEDS: propofoL 1,000 MG/100 ML VIAL 30.48 MG IVCONT (23:32)
[2023-07-26] VITALS (60 sets, daily range): BP systolic 91–141; BP diastolic 35–75; PULSE 75–95; RESP 16; TEMP 35–38.2; O2SAT 93–98; BMI 38.7
[2023-07-26] LABS: Reflex Lactate? 2 Y
--- NOTE | 2023-07-26 | ECG_ITS ---
Test Reason : check ryth Blood Pressure : / mmHG Vent. Rate : 088 BPM Atrial Rate : 066 BPM P-R Int : 208 ms QRS Dur : 084 ms QT Int : 398 ms P-R-T Axes : 000 -01 269 degrees QTc Int : 481 ms Electronic ventricular pacemaker with occasional Premature ventricular complexes Low voltage QRS ST & T wave abnormality, consider inferior ischemia ST & T wave abnormality, consider anterolateral ischemia Prolonged QT Abnormal ECG considerable changes are seen Clinical Correlation Advised Referred By: Rudy Trevino Electronically Signed By:LEBRON RAMÍREZ MD
[2023-07-26 00:19] LABS: Hematocrit 41.6 % (42.0-52.0); Hemoglobin 14.5 g/dl (14.0-18.0); Mean Corpuscular HGB Conc 34.9 g/dl (31.0-36.0); Mean Corpuscular Hemoglobin 31.3 pg (27.0-33.0); Mean Corpuscular Volume 89.8 fL (80.0-98.0); Mean Platelet Volume 9.3 fL (9.4-12.4); Platelet Count 261 X10*3/uL (160-400); Red Blood Count 4.63 X10*6/uL (4.60-5.80); Red Cell Distribution Width 15.5 % (11.0-16.0)
[2023-07-26 00:34] LABS: White Blood Count 31.6 X10*3/uL (4.8-10.8)
[2023-07-26 00:37] LABS: ~Lactic Acid-LAB USE ONLY 7.2 mmol/L (0.5-2.0)
[2023-07-26 00:38] LABS: Anion Gap 24 (12-20); Blood Urea Nitrogen 24 mg/dL (9-16); Calcium 8.5 mg/dL (8.4-10.2); Carbon Dioxide 16 mmol/L (22-29); Chloride 98 mmol/L (96-108); Creatinine Clr Calc Pharmacy 35.8; Estimated Glomerular Filt Rate 39; Glucose Random 401 mg/dL (60-115); Magnesium 1.6 mg/dL (1.6-2.6); Phosphorus 3.3 mg/dL (2.7-4.5); Potassium 2.8 mmol/L (3.3-5.1); Sodium 135 mmol/L (135-145)
[2023-07-26] MEDS: Potassium Chloride/H20 20 MEQ/100 ML PIGGYBACK 100 MEQ IV ×2 (01:02→02:11)
[2023-07-26] MEDS: Insulin Lispro 100 UNIT/ML 3 ML VIAL SUBCUT ×4 (01:02→18:54)
[2023-07-26] MEDS: Magnesium Sulfate/H2O 2 GM/50 ML PIGGYBACK IV (01:02)
[2023-07-26] MEDS: Norepinephrine Bitartrate/D5W 8 MG/250 ML PLAST..BAG 148.6 MG IV ×5 (01:05→18:07)
--- NOTE | 2023-07-26 01:28 | PC.NURSE ---
1930 - pt arrived at unit intubated and sedated, drips were running as follows-? epi?@ 0.6 mcg/kg/min, levo?@ 1 mcg/kg/min, propofol?@ 30 mcg/kg/min, all not documented?in emar by ED RN, unknown initial admin time and unknown previous titrations ET tube #7.5 22?@ lip, vent settings - PC 18/5, 60% 4 units RBCs infusing at time of arrival to unit - post MTP, unable to document in TAR, blood completed at 1944, post 15 min vitals documented at 1999? KCentra given in ED - unknown end infusion time Pericardial drain in place draining fish red blood, dressing reinforced? 1954 - R anterior chest tube inserted at bedside by Dr Trevino, cxr to confirm placement, 400 ml fish?red blood drained? 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
[2023-07-26 01:46] LABS: VBG Base Excess -0.6 mmol/L; VBG HCO3 23 mmol/L (22-26); VBG pCO2 38 mmHg; VBG pO2 43 mmHg
[2023-07-26 01:47] LABS: Venous Blood Gas Refer to POC result
[2023-07-26] MEDS: propofoL 1,000 MG/100 ML VIAL 30.48 MG IVCONT ×6 (02:44→16:27)
[2023-07-26] MEDS: fentaNYL citrate/NS 1,000 MCG/100 ML PLAST..BAG 10 MCG IVCONT (03:20)
[2023-07-26 04:53] LABS: VBG Base Excess 1.2 mmol/L; VBG HCO3 25 mmol/L (22-26); VBG pCO2 36 mmHg; VBG pH 7.44 (7.32-7.43); VBG pO2 41 mmHg
[2023-07-26 04:56] LABS: Venous Blood Gas Refer to POC result
[2023-07-26 05:00] LABS: Hematocrit 38.5 % (42.0-52.0); Hemoglobin 13.9 g/dl (14.0-18.0); Mean Corpuscular HGB Conc 36.1 g/dl (31.0-36.0); Mean Corpuscular Hemoglobin 31.7 pg (27.0-33.0); Mean Corpuscular Volume 87.9 fL (80.0-98.0); Mean Platelet Volume 9.7 fL (9.4-12.4); Platelet Count 280 X10*3/uL (160-400); Red Blood Count 4.38 X10*6/uL (4.60-5.80); Red Cell Distribution Width 15.5 % (11.0-16.0); White Blood Count 24.8 X10*3/uL (4.8-10.8)
[2023-07-26] MEDS: Pantoprazole Sodium 40 MG/10 ML VIAL IVPUSH (05:14)
[2023-07-26] MEDS: 0.9 % Sodium Chloride 1,000 ML 100 ML IVCONT (05:27)
[2023-07-26 05:40] LABS: Alanine Aminotransferase 61 U/L (0-40); Albumin Level 3.5 g/dL (3.5-5.0); Alkaline Phosphatase 42 U/L (39-117); Anion Gap 20 (12-20); Aspartate Amino Transferase 154 U/L (5-37); Bilirubin Total 1.6 mg/dL (0.0-1.0); Blood Urea Nitrogen 24 mg/dL (9-16); Calcium 8.3 mg/dL (8.4-10.2); Carbon Dioxide 21 mmol/L (22-29); Chloride 96 mmol/L (96-108); Creatinine Clr Calc Pharmacy 36.6; Estimated Glomerular Filt Rate 38; Glucose Random 303 mg/dL (60-115); Magnesium 1.9 mg/dL (1.6-2.6); Phosphorus 1.2 mg/dL (2.7-4.5); Potassium 3.2 mmol/L (3.3-5.1); Sodium 134 mmol/L (135-145); Total Protein 5.9 g/dL (6.5-8.0)
[2023-07-26 05:41] LABS: Anion Gap 21 (12-20); Blood Urea Nitrogen 24 mg/dL (9-16); Calcium 8.3 mg/dL (8.4-10.2); Carbon Dioxide 20 mmol/L (22-29); Chloride 95 mmol/L (96-108); Creatinine Clr Calc Pharmacy 37.9; Estimated Glomerular Filt Rate 39; Glucose Fasting 307 mg/dL (60-99); Potassium 3.1 mmol/L (3.3-5.1); Sodium 133 mmol/L (135-145)
[2023-07-26 06:01] LABS: Glucose, Whole Blood 290 mg/dL (60-115)
[2023-07-26] MEDS: Potassium Phosphate/NS 15 MMOL/250 ML PLAST..BAG 62.5 MMOL IV ×2 (06:13→10:23)
[2023-07-26] MEDS: Chlorhexidine Gluc Oral Rinse 15 ML MOUTHWASH BUCCAL ×3 (07:34→19:35)
[2023-07-26] MEDS: 0.9 % Sodium Chloride Flush 3 ML SYRINGE IVFLUSH ×2 (07:34→16:08)
[2023-07-26] MEDS: Norepinephrine Bitartrate/D5W 8 MG/250 ML PLAST..BAG 140.98 MG IV ×6 (07:35→16:08)
[2023-07-26] MEDS: cefTRIAXone sodium 1 GM in 0.9 % Sodium Chloride 50 ML IV (08:03)
--- NOTE | 2023-07-26 10:28 | P.PNCC_ITS ---
Subjective Subjective Date of Service: 07/26/23 Interval History: 88-year-old gentleman with underlying AFib and prior DVT on Xarelto, diastolic heart failure, status post ppm, admitted on 07/25/2023 with large left-sided pleural effusion, status post chest left tube by thoracic surgery at the bedside in ER with drainage of approximately 3 L of bloody drainage requiring massive transfusion protocol and complicated by postprocedure cardiac arrest with initial chest tube removal, further development of cardiac tamponade with cardiac arrest requiring emergent bedside pericardial window. Status post placement of central venous access further complicated by right-sided pneumothorax that improved post placement of right-sided chest tube. Now on high-dose pressor support. No events overnight. Critical Care Time (minutes): 45 Physical Exam 2 Vital Signs: Vital Signs: Last Vital Signs Temp 99.3 F 07/26/23 10:00 Pulse 85 07/26/23 10:00 Resp 16 07/26/23 10:00 BP 113/54 L 07/26/23 10:00 Pulse Ox 94 07/26/23 10:00 O2 Del Method Mechanical Ventil ation 07/26/23 10:00 O2 Flow Rate 2 07/25/23 13:52 FiO2 30 07/26/23 10:00 Oxygen Flow Rate 2 07/25/23 02:10 BMI result Body Mass Index 38.7 Const: General: no acute distress and other ( sedated on the vent) N utritional Appearance: obese Eyes: Sclerae: sclerae normal Neck: Neck: Yes no lymphadenopathy, Yes trachea midline and Yes supple Resp: Auscultation: other ( poor left-sided air movement) Cardio: Rate: regular rate Rhythm: regular rhythm Heart sounds: no gallops, no murmurs and no rubs GI: Palpation (GI): Soft to palpation and Other GI palpation findings present ( Nontender) Auscultation: normal bowel sounds Extrem: General: No clubbing, No cyanosis and Yes edema (2+ bilateral) Objective Data Labs 07/26/23 04:44 07/26/23 04:44 Labs: Laboratory Results - last 24 hr 07/25/23 07/25/23 07/25/23 17:47 19:24 19:25 WBC 12.8 H 25.7 H RBC 2.75 L D 4.01 L D Hgb 8.4 L D 12.7 L D Hct 26.7 L D 39.1 L D MCV 97.1 97.5 MCH 30.5 31.7 MCHC 31.5 32.5 RDW 15.5 15.3 Plt Count 234 244 MPV 10.3 9.8 Immature Gran % (Auto) Cancelled 4.4 H Neut % (Auto) Cancelled 80.3 H Lymph % (Auto) Cancelled 10.9 L [place] % (Auto) Cancelled 3.3 Eos % (Auto) Cancelled 0.7 Baso % (Auto) Cancelled 0.4 Lymph # (Auto) Cancelled 2.8 [place] # (Auto) Cancelled 0.9 Eos # (Auto) Cancelled 0.2 Baso # (Auto) Cancelled 0.1 Abs Immat Gran (auto) Cancelled 1.12 H Absolute Neuts (auto) Cancelled 20.7 H Absolute Nucleated RBC 0.000 0.000 Nucleated RBC % (auto) 0.0 0.0 Neutrophils % (Manual) 87 H Band Neutrophils % 5 Lymphocytes % (Manual) 5 L Monocytes % (Manual) 3 Abs Neuts (Manual) 11.8 H Lymphocytes # (Manual) 0.6 L Monocytes # (Manual) 0.4 Platelet Estimate NORMAL Plt Morphology Comment NORMAL RBC Morphology NOTED Nash Cells 1+ (0-2) Smear Tech's Comments VERIFIED PT 14.2 H INR 1.2 H Fibrinogen 313 O2 Saturation ABG pH at Pt Temp ABG pCO2 at Pt Temp ABG pO2 at Pt Temp ABG HCO3 ABG Base Excess (Actual) VBG pH VBG pCO2 VBG pO2 VBG HCO3 VBG O2 Saturation VBG Base Excess Sodium 140 Potassium 3.7 Chloride 104 Carbon Dioxide 15 L Anion Gap 25 H BUN 23 H Creatinine 1.37 Estim Creat Clear Calc 43.9 Estimated GFR 49 POC Glucose Random Glucose 443 H* Fasting Glucose Lactic Acid 8.8 H* Lactic Acid F/U @ 2Hr Lactic Acid F/U @ 4Hr Calcium Cancelled Phosphorus Magnesium Total Bilirubin AST ALT Alkaline Phosphatase Troponin I High Sens Total Protein Albumin Hold Green Top Blood Type Antibody Screen Crossmatch 07/25/23 07/25/23 07/25/23 19:25 19:25 19:52 WBC RBC Hgb Hct MCV MCH MCHC RDW Plt Count MPV Immature Gran % (Auto) Neut % (Auto) Lymph % (Auto) [place] % (Auto) Eos % (Auto) Baso % (Auto) Lymph # (Auto) [place] # (Auto) Eos # (Auto) Baso # (Auto) Abs Immat Gran (auto) Absolute Neuts (auto) Absolute Nucleated RBC Nucleated RBC % (auto) Neutrophils % (Manual) Band Neutrophils % Lymphocytes % (Manual) Monocytes % (Manual) Abs Neuts (Manual) Lymphocytes # (Manual) Monocytes # (Manual) Platelet Estimate Plt Morphology Comment RBC Morphology Nash Cells Smear Tech's Comments PT INR Fibrinogen O2 Saturation ABG pH at Pt Temp ABG pCO2 at Pt Temp ABG pO2 at Pt Temp ABG HCO3 ABG Base Excess (Actual) VBG pH VBG pCO2 VBG pO2 VBG HCO3 VBG O2 Saturation VBG Base Excess Sodium Potassium Chloride Carbon Dioxide Anion Gap BUN Creatinine Estim Creat Clear Calc Estimated GFR POC Glucose Random Glucose Fasting Glucose Lactic Acid Lactic Acid F/U @ 2Hr Lactic Acid F/U @ 4Hr Calcium 7.8 L D Phosphorus 7.7 H Magnesium 1.9 Total Bilirubin 0.7 AST 133 H ALT 58 H Alkaline Phosphatase 47 Troponin I High Sens 191.5 H* D Total Protein 4.8 L Albumin Cancelled 2.8 L Hold Green Top Blood Type O Positive Antibody Screen NEGATIVE Crossmatch See Detail 07/25/23 07/25/23 07/25/23 20:03 20:05 21:57 WBC 28.2 H RBC 4.63 Hgb 14.6 Hct 44.3 MCV 95.7 MCH 31.5 MCHC 33.0 RDW 15.2 Plt Count 268 MPV 10.0 Immature Gran % (Auto) 3.4 H Neut % (Auto) 85.1 H Lymph % (Auto) 8.6 L [place] % (Auto) 2.2 Eos % (Auto) 0.4 Baso % (Auto) 0.3 Lymph # (Auto) 2.4 [place] # (Auto) 0.6 Eos # (Auto) 0.1 Baso # (Auto) 0.1 Abs Immat Gran (auto) 0.96 H Absolute Neuts (auto) 24.0 H Absolute Nucleated RBC 0.000 Nucleated RBC % (auto) 0.0 Neutrophils % (Manual) Band Neutrophils % Lymphocytes % (Manual) Monocytes % (Manual) Abs Neuts (Manual) Lymphocytes # (Manual) Monocytes # (Manual) Platelet Estimate Plt Morphology Comment RBC Morphology Nish Cells Smear Tech's Comments PT INR Fibrinogen O2 Saturation 95.0 ABG pH at Pt Temp 7.19 L* ABG pCO2 at Pt Temp 38 ABG pO2 at Pt Temp 76 L ABG HCO3 14 L ABG Base Excess (Actual) -12.4 VBG pH VBG pCO2 VBG pO2 VBG HCO3 VBG O2 Saturation VBG Base Excess Sodium Potassium Chloride Carbon Dioxide Anion Gap BUN Creatinine Estim Creat Clear Calc Estimated GFR POC Glucose Random Glucose Fasting Glucose Lactic Acid Lactic Acid F/U @ 2Hr 7.5 H* Lactic Acid F/U @ 4Hr Calcium Phosphorus Magnesium Total Bilirubin AST ALT Alkaline Phosphatase Troponin I High Sens Total Protein Albumin Hold Green Top Blood Type Antibody Screen Crossmatch 07/26/23 07/26/23 07/26/23 00:11 00:12 01:40 WBC 31.6 H* RBC 4.63 Hgb 14.5 Hct 41.6 L MCV 89.8 D MCH 31.3 MCHC 34.9 RDW 15.5 Plt Count 261 MPV 9.3 L Immature Gran % (Auto) Neut % (Auto) Lymph % (Auto) [place] % (Auto) Eos % (Auto) Baso % (Auto) Lymph # (Auto) [place] # (Auto) Eos # (Auto) Baso # (Auto) Abs Immat Gran (auto) Absolute Neuts (auto) Absolute Nucleated RBC 0.000 Nucleated RBC % (auto) 0.0 Neutrophils % (Manual) Band Neutrophils % Lymphocytes % (Manual) Monocytes % (Manual) Abs Neuts (Manual) Lymphocytes # (Manual) Monocytes # (Manual) Platelet Estimate Plt Morphology Comment RBC Morphology Nish Cells Smear Tech's Comments PT INR Fibrinogen O2 Saturation ABG pH at Pt Temp ABG pCO2 at Pt Temp ABG pO2 at Pt Temp ABG HCO3 ABG Base Excess (Actual) VBG pH 7.40 VBG pCO2 38 VBG pO2 43 VBG HCO3 23 VBG O2 Saturation 80.0 VBG Base Excess -0.6 Sodium 135 Potassium 2.8 L D Chloride 98 Carbon Dioxide 16 L Anion Gap 24 H BUN 24 H Creatinine 1.68 H Estim Creat Clear Calc 35.8 Estimated GFR 39 POC Glucose Random Glucose 401 H* Fasting Glucose Lactic Acid Lactic Acid F/U @ 2Hr Lactic Acid F/U @ 4Hr 7.2 H* Calcium 8.5 D Phosphorus 3.3 Magnesium 1.6 Total Bilirubin AST ALT Alkaline Phosphatase Troponin I High Sens Total Protein Albumin Hold Green Top See Note Blood Type Antibody Screen Crossmatch 07/26/23 07/26/23 07/26/23 04:44 04:44 04:44 WBC 24.8 H RBC 4.38 L Hgb 13.9 L Hct 38.5 L MCV 87.9 MCH 31.7 MCHC 36.1 H RDW 15.5 Plt Count 280 MPV 9.7 Immature Gran % (Auto) Neut % (Auto) Lymph % (Auto) [place] % (Auto) Eos % (Auto) Baso % (Auto) Lymph # (Auto) [place] # (Auto) Eos # (Auto) Baso # (Auto) Abs Immat Gran (auto) Absolute Neuts (auto) Absolute Nucleated RBC 0.000 Nucleated RBC % (auto) 0.0 Neutrophils % (Manual) Band Neutrophils % Lymphocytes % (Manual) Monocytes % (Manual) Abs Neuts (Manual) Lymphocytes # (Manual) Monocytes # (Manual) Platelet Estimate Plt Morphology Comment RBC Morphology Nish Cells Smear Tech's Comments PT INR Fibrinogen O2 Saturation ABG pH at Pt Temp ABG pCO2 at Pt Temp ABG pO2 at Pt Temp ABG HCO3 ABG Base Excess (Actual) VBG pH VBG pCO2 VBG pO2 VBG HCO3 VBG O2 Saturation VBG Base Excess Sodium 134 L 133 L Potassium 3.2 L 3.1 L Chloride 96 Carbon Dioxide Anion Gap BUN Creatinine Estim Creat Clear Calc Estimated GFR POC Glucose Random Glucose Fasting Glucose Lactic Acid Lactic Acid F/U @ 2Hr Lactic Acid F/U @ 4Hr Calcium Phosphorus Magnesium Total Bilirubin AST ALT Alkaline Phosphatase Troponin I High Sens Total Protein Albumin Hold Green Top Blood Type Antibody Screen Crossmatch 07/26/23 07/26/23 07/26/23 04:44 04:44 04:44 WBC RBC Hgb Hct MCV MCH MCHC RDW Plt Count MPV Immature Gran % (Auto) Neut % (Auto) Lymph % (Auto) [place] % (Auto) Eos % (Auto) Baso % (Auto) Lymph # (Auto) [place] # (Auto) Eos # (Auto) Baso # (Auto) Abs Immat Gran (auto) Absolute Neuts (auto) Absolute Nucleated RBC Nucleated RBC % (auto) Neutrophils % (Manual) Band Neutrophils % Lymphocytes % (Manual) Monocytes % (Manual) Abs Neuts (Manual) Lymphocytes # (Manual) Monocytes # (Manual) Platelet Estimate Plt Morphology Comment RBC Morphology Nish Cells Smear Tech's Comments PT INR Fibrinogen O2 Saturation ABG pH at Pt Temp ABG pCO2 at Pt Temp ABG pO2 at Pt Temp ABG HCO3 ABG Base Excess (Actual) VBG pH VBG pCO2 VBG pO2 VBG HCO3 VBG O2 Saturation VBG Base Excess Sodium Potassium Chloride 95 L Carbon Dioxide 21 L 20 L Anion Gap 20 21 H BUN 24 H Creatinine Estim Creat Clear Calc Estimated GFR POC Glucose Random Glucose Fasting Glucose Lactic Acid Lactic Acid F/U @ 2Hr Lactic Acid F/U @ 4Hr Calcium Phosphorus Magnesium Total Bilirubin AST ALT Alkaline Phosphatase Troponin I High Sens Total Protein Albumin Hold Green Top Blood Type Antibody Screen Crossmatch 07/26/23 07/26/23 07/26/23 04:44 04:44 04:44 WBC RBC Hgb Hct MCV MCH MCHC RDW Plt Count MPV Immature Gran % (Auto) Neut % (Auto) Lymph % (Auto) [place] % (Auto) Eos % (Auto) Baso % (Auto) Lymph # (Auto) [place] # (Auto) Eos # (Auto) Baso # (Auto) Abs Immat Gran (auto) Absolute Neuts (auto) Absolute Nucleated RBC Nucleated RBC % (auto) Neutrophils % (Manual) Band Neutrophils % Lymphocytes % (Manual) Monocytes % (Manual) Abs Neuts (Manual) Lymphocytes # (Manual) Monocytes # (Manual) Platelet Estimate Plt Morphology Comment RBC Morphology Nish Cells Smear Tech's Comments PT INR Fibrinogen O2 Saturation ABG pH at Pt Temp ABG pCO2 at Pt Temp ABG pO2 at Pt Temp ABG HCO3 ABG Base Excess (Actual) VBG pH VBG pCO2 VBG pO2 VBG HCO3 VBG O2 Saturation VBG Base Excess Sodium Potassium Chloride Carbon Dioxide Anion Gap BUN 24 H Creatinine 1.73 H 1.67 H Estim Creat Clear Calc 36.6 37.9 Estimated GFR 38 POC Glucose Random Glucose Fasting Glucose Lactic Acid Lactic Acid F/U @ 2Hr Lactic Acid F/U @ 4Hr Calcium Phosphorus Magnesium Total Bilirubin AST ALT Alkaline Phosphatase Troponin I High Sens Total Protein Albumin Hold Green Top Blood Type Antibody Screen Crossmatch 07/26/23 07/26/23 07/26/23 04:44 04:44 04:45 WBC RBC Hgb Hct MCV MCH MCHC RDW Plt Count MPV Immature Gran % (Auto) Neut % (Auto) Lymph % (Auto) [place] % (Auto) Eos % (Auto) Baso % (Auto) Lymph # (Auto) [place] # (Auto) Eos # (Auto) Baso # (Auto) Abs Immat Gran (auto) Absolute Neuts (auto) Absolute Nucleated RBC Nucleated RBC % (auto) Neutrophils % (Manual) Band Neutrophils % Lymphocytes % (Manual) Monocytes % (Manual) Abs Neuts (Manual) Lymphocytes # (Manual) Monocytes # (Manual) Platelet Estimate Plt Morphology Comment RBC Morphology Nish Cells Smear Tech's Comments PT INR Fibrinogen O2 Saturation ABG pH at Pt Temp ABG pCO2 at Pt Temp ABG pO2 at Pt Temp ABG HCO3 ABG Base Excess (Actual) VBG pH 7.44 H VBG pCO2 36 VBG pO2 41 VBG HCO3 25 VBG O2 Saturation 76.0 VBG Base Excess 1.2 Sodium Potassium Chloride Carbon Dioxide Anion Gap BUN Creatinine Estim Creat Clear Calc Estimated GFR 39 POC Glucose Random Glucose 303 H Fasting Glucose 307 H Lactic Acid Lactic Acid F/U @ 2Hr Lactic Acid F/U @ 4Hr Calcium 8.3 L 8.3 L Phosphorus 1.2 L Magnesium 1.9 Total Bilirubin 1.6 H AST 154 H ALT 61 H Alkaline Phosphatase 42 Troponin I High Sens Total Protein 5.9 L Albumin 3.5 Hold Green Top Blood Type Antibody Screen Crossmatch 07/26/23 05:57 WBC RBC Hgb Hct MCV MCH MCHC RDW Plt Count MPV Immature Gran % (Auto) Neut % (Auto) Lymph % (Auto) [place] % (Auto) Eos % (Auto) Baso % (Auto) Lymph # (Auto) [place] # (Auto) Eos # (Auto) Baso # (Auto) Abs Immat Gran (auto) Absolute Neuts (auto) Absolute Nucleated RBC Nucleated RBC % (auto) Neutrophils % (Manual) Band Neutrophils % Lymphocytes % (Manual) Monocytes % (Manual) Abs Neuts (Manual) Lymphocytes # (Manual) Monocytes # (Manual) Platelet Estimate Plt Morphology Comment RBC Morphology Nash Cells Smear Tech's Comments PT INR Fibrinogen O2 Saturation ABG pH at Pt Temp ABG pCO2 at Pt Temp ABG pO2 at Pt Temp ABG HCO3 ABG Base Excess (Actual) VBG pH VBG pCO2 VBG pO2 VBG HCO3 VBG O2 Saturation VBG Base Excess Sodium Potassium Chloride Carbon Dioxide Anion Gap BUN Creatinine Estim Creat Clear Calc Estimated GFR POC Glucose 290 H Random Glucose Fasting Glucose Lactic Acid Lactic Acid F/U @ 2Hr Lactic Acid F/U @ 4Hr Calcium Phosphorus Magnesium Total Bilirubin AST ALT Alkaline Phosphatase Troponin I High Sens Total Protein Albumin Hold Green Top Blood Type Antibody Screen Crossmatch Progress Note: A&P Assessment and plan (1) Pneumothorax: Status: Acute (2) Pericardial effusion: Status: Acute (3) Cardiac arrest with successful resuscitation: Status: Acute (4) Acute respiratory failure with hypoxia: Status: Resolved (5) GIN (acute kidney injury): Status: Acute (6) Diastolic CHF: Status: Acute Plan Assessment: 88-year-old gentleman now status post pericardial drain for cardiac tamponade with cardiac arrest and right-sided chest tube for pneumothorax now on high-dose pressor support Plan: Neuro: No therapeutic hypothermia secondary to hemodynamic instability and hemorrhagic shock. Cardiac: cardiac arrest x2 with total CPR time estimated to be of 15-20 minutes. Cardiac tamponade status post pericardial drain. Initially hemorrhagic, then cardiogenic shock continue to titrate of pressor support as tolerated. 2D echocardiogram is pending. Underlying AFib and diastolic dysfunction. Pulmonary: intubated during the CPR. Continue to titrate of ventilatory support. Right pneumothorax, now status post chest tube , still with air leak. Renal: Acute renal failure secondary to hypoperfusion with cardiac arrest. Non oliguric. Continue to monitor renal indices and urine output. Endo: No acute issues. GI: No acute issues. ID: No acute issues . Empirically covered with ceftriaxone. Heme/Onc: hemorrhagic shock resolved after massive transfusion protocol. Psych: No acute issues. Miscellaneous: No acute issues. Prophylaxis: Pneumatic compression, ppi Diet: NPO Critical care time spent: 45 minutes Quality Stroke Does the patient have a stroke diagnosis?: No VTE Prior VTE?: Yes VTE Risk Level:: Medical - moderate - high VTE Device Contraindication: N/A - Device Ordered VTE Drug Contraindication: Treatment Not Indicated
[2023-07-26 12:02] LABS: Glucose, Whole Blood 198 mg/dL (60-115)
--- NOTE | 2023-07-26 14:43 | PM.PNTS ---
Subjective Subjective Date of Service: 07/26/23 Interval history: Patient on ventilator, sedated. Vital signs much improved Pericardial tube approximate 100 cc output over 24 hours. Few 100 cc from right chest tube. H&H stable. Chest x-ray unchanged from last evening. Physical Exam Vital Signs: Vital Signs: Last Vital Signs Temp 99.5 F 07/26/23 13:00 Pulse 89 07/26/23 14:34 Resp 16 07/26/23 13:00 BP 100/50 L 07/26/23 14:34 Pulse Ox 94 07/26/23 13:00 O2 Del Method Mechanical Ventil ation 07/26/23 13:00 O2 Flow Rate 2 07/25/23 13:52 FiO2 30 07/26/23 13:00 Oxygen Flow Rate 2 07/25/23 02:10 BMI result Body Mass Index 38.7 Chest: Other: Upper abdominal Dressing changed. Incision clean dry and intact. Procedures Date of Service Date of Service: 07/26/23 Progress Note: A&P Assessment and plan (1) Cardiac arrest with successful resuscitation: Status: Acute (2) Pericardial effusion: Status: Acute (3) Pneumothorax: Status: Acute (4) Pleural effusion: Status: Acute Plan Continue restorative measures. Follow I's and o's, chest tube and pericardial tube output. Time Spent With Patient Time: Total time managing care of this patient today ____ minutes. Quality Stroke Does the patient have a stroke diagnosis?: No VTE Prior VTE?: Yes VTE Risk Level:: Medical - moderate - high VTE Device Contraindication: N/A - Device Ordered VTE Drug Contraindication: Treatment Not Indicated
--- NOTE | 2023-07-26 14:50 | PC.NURSE ---
At 1430 Dr Renee arrived on the unit to see pt. Dressing was removed. Bubbling upon pt's inspiration was noted in sanguineous drainage at thorocotomy incision site. Dr. Renee noted this was to be expected. New clean dressing applied.
[2023-07-26] MEDS: fentaNYL citrate/NS 1,000 MCG/100 ML PLAST..BAG 7.5 MCG IVCONT (15:24)
[2023-07-26 18:10] LABS: Glucose, Whole Blood 163 mg/dL (60-115)
[2023-07-26] MEDS: propofoL 1,000 MG/100 ML VIAL 24.39 MG IVCONT (19:33)
[2023-07-26] MEDS: Norepinephrine Bitartrate/D5W 8 MG/250 ML PLAST..BAG 137.17 MG IV (19:34)
[2023-07-26 20:49] LABS: VBG Base Excess 0.6 mmol/L; VBG HCO3 24 mmol/L (22-26); VBG pCO2 34 mmHg; VBG pH 7.44 (7.32-7.43); VBG pO2 46 mmHg
[2023-07-26 20:52] LABS: Hematocrit 37.8 % (42.0-52.0); Hemoglobin 13.8 g/dl (14.0-18.0); Mean Corpuscular HGB Conc 36.5 g/dl (31.0-36.0); Mean Corpuscular Volume 87.7 fL (80.0-98.0); Mean Platelet Volume 9.6 fL (9.4-12.4); Platelet Count 234 X10*3/uL (160-400); Red Blood Count 4.31 X10*6/uL (4.60-5.80); Red Cell Distribution Width 15.7 % (11.0-16.0); White Blood Count 19.1 X10*3/uL (4.8-10.8)
[2023-07-26 21:05] LABS: Albumin Level 3.1 g/dL (3.5-5.0); Anion Gap 21 (12-20); Blood Urea Nitrogen 23 mg/dL (9-16); Calcium 8.2 mg/dL (8.4-10.2); Carbon Dioxide 18 mmol/L (22-29); Chloride 95 mmol/L (96-108); Creatinine Clr Calc Pharmacy 30.9; Estimated Glomerular Filt Rate 31; Glucose Random 184 mg/dL (60-115); Magnesium 1.8 mg/dL (1.6-2.6); Phosphorus 4.4 mg/dL (2.7-4.5); Potassium 3.6 mmol/L (3.3-5.1); Sodium 130 mmol/L (135-145)
[2023-07-26 21:26] LABS: Venous Blood Gas Refer to POC result
[2023-07-26] MEDS: 0.9 % Sodium Chloride 500 ML IV (23:27)
[2023-07-26] MEDS: propofoL 1,000 MG/100 ML VIAL 18.29 MG IVCONT (23:28)
[2023-07-26 23:44] LABS: Glucose, Whole Blood 149 mg/dL (60-115)
[2023-07-27] VITALS (31 sets, daily range): BP systolic 103–160; BP diastolic 38–77; PULSE 80–108; RESP 14–23; TEMP 34.4–39.1; O2SAT 94–97; BMI 38.7
[2023-07-27] MEDS: 0.9 % Sodium Chloride 1,000 ML 50 ML IVCONT (04:07)
[2023-07-27] MEDS: propofoL 1,000 MG/100 ML VIAL 18.29 MG IVCONT ×2 (04:13→08:56)
[2023-07-27] MEDS: Pantoprazole Sodium 40 MG/10 ML VIAL IVPUSH (04:14)
[2023-07-27 04:18] LABS: VBG Base Excess 1.1 mmol/L; VBG HCO3 25 mmol/L (22-26); VBG pCO2 40 mmHg; VBG pO2 40 mmHg
[2023-07-27 04:23] LABS: Venous Blood Gas Refer to POC result
[2023-07-27 04:28] LABS: Basophils Absolute Auto 0.1 X10*3/uL (0.0-0.2); Basophils Percent Auto 0.6 % (0-2); Eosinophils Absolute Auto 0.2 X10*3/uL (0.0-0.4); Eosinophils Percent Auto 0.7 % (0-4); Hematocrit 37.8 % (42.0-52.0); Hemoglobin 13.5 g/dl (14.0-18.0); Imm Gran Abs Auto 0.22 X10*3/uL (0.00-0.03); Lymphocytes Absolute Auto 1.4 X10*3/uL (1.2-4.9); Lymphocytes Percent Auto 6.3 % (20-40); MANUAL DIFF FLAG SCAN; Mean Corpuscular HGB Conc 35.7 g/dl (31.0-36.0); Mean Corpuscular Hemoglobin 31.9 pg (27.0-33.0); Mean Corpuscular Volume 89.4 fL (80.0-98.0); Mean Platelet Volume 9.9 fL (9.4-12.4); Monocytes Absolute Auto 1.8 X10*3/uL (0.1-1.2); Monocytes Percent Auto 7.9 % (2-11); Neutrophils Absolute Auto 18.6 x10*3/uL (2.0-8.3); Neutrophils Percent Auto 83.5 % (45-73); Platelet Count 244 X10*3/uL (160-400); Red Blood Count 4.23 X10*6/uL (4.60-5.80); Red Cell Distribution Width 15.9 % (11.0-16.0); SCAN SMEAR FLAG 1; White Blood Count 22.3 X10*3/uL (4.8-10.8)
[2023-07-27 04:43] LABS: Lactic Acid 3.3 mmol/L (0.5-2.0)
[2023-07-27 04:47] LABS: Anion Gap 23 (12-20); Blood Urea Nitrogen 23 mg/dL (9-16); Calcium 8.2 mg/dL (8.4-10.2); Carbon Dioxide 17 mmol/L (22-29); Chloride 95 mmol/L (96-108); Creatinine Clr Calc Pharmacy 25.4; Estimated Glomerular Filt Rate 25; Glucose Random 127 mg/dL (60-115); Magnesium 1.8 mg/dL (1.6-2.6); Phosphorus 5.3 mg/dL (2.7-4.5); Potassium 4.2 mmol/L (3.3-5.1); Sodium 131 mmol/L (135-145)
[2023-07-27 04:49] LABS: SLIDE REVIEW VERIFIED
[2023-07-27] MEDS: fentaNYL citrate/NS 1,000 MCG/100 ML PLAST..BAG 5 MCG IVCONT (05:20)
[2023-07-27] MEDS: Albumin Human 25 % 100 ML IV (05:20)
[2023-07-27 06:25] LABS: Reflex Lactate? Lactic Acid Added
--- NOTE | 2023-07-27 06:34 | PC.NURSE ---
Upon initial assessment at 1900- pt sedated on propofol/fentanyl, RASS -4. Minimal gag reflex, grimaces to noxious stimuli/attempts to lift arms- response to stimuli affected by intubation/sedation. Tmax 101.3 via core bladder probe, SUBSURFACE AUGMENTEE OPERATOR Theo notified- lactic acid and blood cultures ordered. NSR with occasional V-pacing on tele, PVCs and TWI noted, HR 90s. Levophed switched to 4x concentrated, titrated to maintain MAP > 65. +peripheral pulses via doppler to left DP and right PT, and palpable radial pulses. Slight mottling and cool extremities. +1/2 generalized pitting edema. R MCT to -20 cm suction, see assessment. Pericardial drain intact, approx 50 ml of sanguinous drainage. ETT #7.5, 21 cm at lip. On AC/VC settings. OGT clamped. Robertson in place, initially oliguric with UOP approx 10 ml/hr, CVP 5, started on IVF per MAR with good effect. No BM. Skin integrity- see wound assessment. Full CHG bath given this AM. Bed locked in low position. Repositoned in bed q2hr.
--- NOTE | 2023-07-27 07:00 | CA_ITS ---
Transthoracic Echocardiogram Patient (Last, First, Middle): Leonidas Linder F Gender: Male Date of : 1935 Age: 88 Procedure Date: 07/27/2023 Procedure Type: Transthoracic Echocardiogram Location: ICU Height: 170.18 cm Weight: 112.04 kg BSA: 2.21 m2 Heart Rate: bpm BP: 161 / 56 mmHg Rehabilitation Counsellor: SB Referring MD: Loan Ashley MD Symptoms: Hypotension, Pericardial Effusion s/p Window Study Quality: Technically Difficult ECG Rhythm: Indeterminate Conclusions: - Due to image quality, irregular rhythm, intermittent pacing, difficult to assess LVEF. Probably moderately reduced. - There is severely decreased right ventricular systolic function. - Possible aortic stenosis, but not quantifiable. - Large collection of fluid seen posterior to the left ventricle. Could be pleural +/- pericardial; difficult to assess. - Findings discussed with . Findings Procedure Information Contrast agent, definity, is being given per protocol without apparent complications. Left Ventricle Normal left ventricular cavity size. Regional wall motion abnormalities can not be excluded due to suboptimal endocardial definition. Diastolic function is indeterminate on the basis of available data. There is mild septal asymmetric hypertrophy. Due to image quality, irregular rhythm, intermittent pacing, difficult to assess LVEF. Probably moderately reduced. Right Ventricle Normal right ventricular cavity size. There is severely decreased right ventricular systolic function. Atria Both atria are normal in size. Aortic Valve There is moderate calcification of the aortic valve. There is no aortic valve regurgitation. Assessment of aortic stenosis is inadequate, due to highly variable gradients, stroke volume as well as image quality. However, doubt severe aortic stenosis. Mitral Valve There is mild mitral annular calcification. There is no mitral valve regurgitation. There is no mitral valve stenosis. Pulmonic Valve The pulmonic valve was not well visualized. Tricuspid Valve There is trace tricuspid valve regurgitation. Great Vessels There is mild dilatation of the sinuses of Valsalva measuring 4.10 cm and mild dilatation of the ascending aorta measuring 4.00 cm. Venous The inferior vena cava was not well visualized. Pericardium/Pleural Large collection of fluid seen posterior to the left ventricle. Could be pleural +/- pericardial; difficult to assess. Prior Study Comparison Changes noted compared to prior study dated: 06/24/2021. Due to study quality, difficult to compare. Measurements 2D Linear Measurements IVSd: 1.20 0.6-0.9/0.6-1.0 cm LVIDd: 4.69 3.9-5.3/4.2-5.9 cm LVIDd Index: 2.12 2.4-3.2/2.2-3.1 cm/m2 LVIDs: 3.55 2.0-3.6 cm LVPWd: 0.73 0.7-1.1 cm LA Diam: 3.60 2.7-3.8/3.0-4.0 cm LAIDs Index: 1.63 1.5-2.3 cm/m2 LV Mass: 194.98 67-162/88-224 g LV Mass Index: 88.23 43-95/49-115 g/m2 LVOT Diam: 2.60 3.0+(-)1.3 cm 2D Systolic Function EF 4C: 10.40 >55% EF 2C: 47.60 >55% EF BiP: 32.80 >55% Aortic Valve AoV Pk Phil: 2.44 AoV Mn Phil: 1.75 AoV VTI: 0.31 AoV Pk Grad: 24.00 Aov Mn Grad: 14.00 RALF Cont.VTI: 3.11 LVOT LVOT Pk Phil: 1.44 LVOT Mn Phil: 0.96 LVOT VTI: 0.18 LVOT Pk Grad: 8.00 LVOT Mn Grad: 4.00 LVOT Diam: 2.60 LVOT Area: 5.31 Right Ventricle TAPSE (mm): 6.00 Tricuspid Valve TR Pk Phil: 3.15 TR Pk Grad: 40.00 RVSP: 40.00 Great Vessels Aorta Sinus of Valsalva: 4.10 2.0-3.5 cm Ao Asc: 4.00 2.1-3.4 cm Pulmonary Valve PV Pk Phil: 1.20 Peak PV Grad: 6.00 Updated in Other Vendor System with Status of Final Demetrio Becker MD electronically signed on 07/27/2023 3:42:26 PM with status of Final
--- NOTE | 2023-07-27 07:49 | P.PNCC_ITS ---
Subjective Subjective Date of Service: 07/27/23 Critical Care Time (minutes): 90 Physical Exam 2 Vital Signs: Vital Signs: Last Vital Signs Temp 100.9 F H 07/27/23 07:00 Pulse 91 07/27/23 07:00 Resp 17 07/27/23 07:00 BP 121/42 L 07/27/23 07:00 Pulse Ox 96 07/27/23 07:00 O2 Del Method Mechanical Ventil ation 07/27/23 07:00 O2 Flow Rate 2 07/25/23 13:52 FiO2 30 07/27/23 07:27 Oxygen Flow Rate 2 07/25/23 02:10 BMI result Body Mass Index 38.7 Const: Other: intubated, sedated General: no acute distress HEENT: Head: Yes normal to inspection, Yes normocephalic and Yes atraumatic Eyes: General: appearance normal, both eyes and all related structures Neck: Neck: Yes normal visual inspection Chest: Other: appreciable mild crepitus, L greater than R; R chest tube in place w/ overlying bandage; pericardial drain in place w/ overlying bandage Resp: Other: mildly decreased breath sounds R chest; no rales, rhonchi, wheezing Cardio: Rate: regular rate Rhythm: regular rhythm Heart sounds: S1 normal heart sound present and S2 normal heart sound present GI: Inspection: Yes normal to inspection, No Abdominal wall edema and No distended Palpation (GI): Soft to palpation, not firm, nontender, no guarding and not rigid Skin: Other: appreciable ecchymoses R hand Neuro: Other: intubated, sedated Extrem: Other: mild edema bilateral hands General: Yes normal to inspection and Yes capillary refill normal Psych: Other: unable to assess Objective Data Labs 07/27/23 04:07 07/27/23 04:07 Labs: Laboratory Results - last 24 hr 07/25/23 07/26/23 07/26/23 19:52 11:56 18:08 WBC RBC Hgb Hct MCV MCH MCHC RDW Plt Count MPV Immature Gran % (Auto) Neut % (Auto) Lymph % (Auto) [place] % (Auto) Eos % (Auto) Baso % (Auto) Lymph # (Auto) [place] # (Auto) Eos # (Auto) Baso # (Auto) Abs Immat Gran (auto) Absolute Neuts (auto) Absolute Nucleated RBC Nucleated RBC % (auto) Smear Tech's Comments VBG pH VBG pCO2 VBG pO2 VBG HCO3 VBG O2 Saturation VBG Base Excess Sodium Potassium Chloride Carbon Dioxide Anion Gap BUN Creatinine Estim Creat Clear Calc Estimated GFR POC Glucose 198 H 163 H Random Glucose Lactic Acid Calcium Phosphorus Magnesium Albumin Crossmatch See Detail 07/26/23 07/26/23 07/26/23 20:44 20:45 23:40 WBC 19.1 H RBC 4.31 L Hgb 13.8 L Hct 37.8 L MCV 87.7 MCH 32.0 MCHC 36.5 H RDW 15.7 Plt Count 234 MPV 9.6 Immature Gran % (Auto) Neut % (Auto) Lymph % (Auto) [place] % (Auto) Eos % (Auto) Baso % (Auto) Lymph # (Auto) [place] # (Auto) Eos # (Auto) Baso # (Auto) Abs Immat Gran (auto) Absolute Neuts (auto) Absolute Nucleated RBC 0.000 Nucleated RBC % (auto) 0.0 Smear Tech's Comments VBG pH 7.44 H VBG pCO2 34 VBG pO2 46 VBG HCO3 24 VBG O2 Saturation 79.0 VBG Base Excess 0.6 Sodium 130 L Potassium 3.6 Chloride 95 L Carbon Dioxide 18 L Anion Gap 21 H BUN 23 H Creatinine 2.05 H Estim Creat Clear Calc 30.9 Estimated GFR 31 POC Glucose 149 H Random Glucose 184 H Lactic Acid Calcium 8.2 L Phosphorus 4.4 Magnesium 1.8 Albumin 3.1 L Crossmatch 07/27/23 07/27/23 04:07 04:11 WBC 22.3 H RBC 4.23 L Hgb 13.5 L Hct 37.8 L MCV 89.4 MCH 31.9 MCHC 35.7 RDW 15.9 Plt Count 244 MPV 9.9 Immature Gran % (Auto) 1.0 H Neut % (Auto) 83.5 H Lymph % (Auto) 6.3 L [place] % (Auto) 7.9 Eos % (Auto) 0.7 Baso % (Auto) 0.6 Lymph # (Auto) 1.4 [place] # (Auto) 1.8 H Eos # (Auto) 0.2 Baso # (Auto) 0.1 Abs Immat Gran (auto) 0.22 H Absolute Neuts (auto) 18.6 H Absolute Nucleated RBC 0.000 Nucleated RBC % (auto) 0.0 Smear Tech's Comments VERIFIED VBG pH 7.40 VBG pCO2 40 VBG pO2 40 VBG HCO3 25 VBG O2 Saturation 70.0 VBG Base Excess 1.1 Sodium 131 L Potassium 4.2 Chloride 95 L Carbon Dioxide 17 L Anion Gap 23 H BUN 23 H Creatinine 2.49 H Estim Creat Clear Calc 25.4 Estimated GFR 25 POC Glucose Random Glucose 127 H Lactic Acid 3.3 H* Calcium 8.2 L Phosphorus 5.3 H Magnesium 1.8 Albumin 3.0 L Crossmatch Microbiology Microbiology Results: Microbiology 07/25/23 10:22 Blood - Venous Blood Culture - Preliminary No growth after 24 hours. 07/25/23 09:56 Blood - Venous Blood Culture - Preliminary No growth after 24 hours. 07/25/23 Unknown Urine clean catch - Urine fisher top Urine Culture - Final No growth. 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, diastolic heart failure, p/w L pleural effusion on 07/25, s/p L chest tube w/ 3 L hemothorax, necessitating massive transfusion, c/b cardiac arrest, cardiac tamponade s/p pericardial window, and central venous access placement c/b R pneumothorax s/p R chest tube Plan: N: sedation w/ propofol gtt; to pause sedation to assess neurological exam CV: s/p cardiac arrest x2; diastolic heart failure, atrial fibrillation R: L hemothorax s/p chest tube c/b hemorrhatic shock; R pneumothorax s/p chest tube; to monitor output, air leak; appreciate thoracic surgery recommendations GI: no acute issues : acute renal failure; non-oligouric; mild hyperphosphatemia, uremia; to monitor H: hemorrhagic shock, resolved; to avoid chemical DVT prophylaxis ID: persistent leukocytosis; empiric ceftriaxone E: no acute issues P: no acute issues Quality Stroke Does the patient have a stroke diagnosis?: No VTE Prior VTE?: Yes VTE Risk Level:: Medical - moderate - high VTE Device Contraindication: N/A - Device Ordered VTE Drug Contraindication: Treatment Not Indicated
[2023-07-27] MEDS: cefTRIAXone sodium 1 GM in 0.9 % Sodium Chloride 50 ML IV (07:58)
[2023-07-27] MEDS: Chlorhexidine Gluc Oral Rinse 15 ML MOUTHWASH BUCCAL ×3 (07:58→20:32)
[2023-07-27 08:04] LABS: ~Lactic Acid-LAB USE ONLY 2.3 mmol/L (0.5-2.0)
--- NOTE | 2023-07-27 08:04 | PC.NURSE ---
Addendum entered by Ernie Hilario RN 07/27/23 18:36: Cont IV mag on hold per MD verbal order. hold Mag if Mag > 2. Current Mag is 3.5. Addendum entered by Ernie Hilario RN 07/27/23 15:09: informed MD pt is having increased frequency and longer peiods of torsades/v-fib Addendum entered by Ernie Hilario RN 07/27/23 12:15: Dr Prieto and PA assessed pt at bedside including pericardial drain. informed that the output in the drainage bag is from the start of the shift. Around 1130 md called and asked if there was output, md was informed approx 15-20cc output now. Per md pericardial drain is to be d/c'ed. around 1205 PA arrived and removed drain. Original Note: informed of elevated lactate
--- NOTE | 2023-07-27 08:30 | MHC.CM.PN ---
IMM ADDRESSED WITH HCP CHANDRIKA DE OLIVEIRA ([phone]) WHITE COPY TO BE MAILED. 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 PT IS PRIMARILY W/C BOUND AND DEPENDENT WITH CARE. PLAN TO RETURN TO [facility] WHEN RECOVERED VIA BLS. CM WILL CONTINUE TO FOLLOW FOR ANY CHANGE IN DC NEEDS/PLAN.
[2023-07-27] MEDS: Lactated Ringers 1,000 ML 999 ML IV (08:53)
[2023-07-27] MEDS: Acetaminophen 1,000 MG/100 ML PIGGYBACK 400 MG IV ×3 (08:53→22:36)
[2023-07-27] MEDS: Vasopressin 20 UNIT/100 ML INFUS..BTL 9 UNIT IV ×2 (09:01→16:17)
[2023-07-27 09:42] LABS: Reflex Lactate? 2 Y
[2023-07-27] MEDS: Magnesium Sulfate/H2O 2 GM/50 ML PIGGYBACK IV ×2 (09:51→15:57)
[2023-07-27] MEDS: Hydrocortisone Sod Succ/PF 100 MG VIAL 50 MG IVPUSH ×3 (09:58→22:35)
[2023-07-27] MEDS: Calcium Chloride 1 GM/10 ML SYRINGE IVPUSH (09:58)
[2023-07-27 10:31] LABS: ~Lactic Acid-LAB USE ONLY 3.3 mmol/L (0.5-2.0)
[2023-07-27 12:02] LABS: Glucose, Whole Blood 119 mg/dL (60-115)
--- NOTE | 2023-07-27 12:11 | PM.EVENT ---
Event Note Date of Service: 07/27/23 Event Note: Pericardial drain removed without complication. Sterile dry dressing applied. Time Spent With Patient Time: Total time managing care of this patient today ____ minutes.
[2023-07-27] MEDS: cefEPime HCl 1 GM in 0.9 % Sodium Chloride 50 ML IV ×2 (12:18→20:32)
[2023-07-27] MEDS: vancomycin/NS 2,000 MG/500 ML PLAST..BAG 250 MG IV (12:22)
--- NOTE | 2023-07-27 12:36 | PHA.PROG ---
Admission Date/Time: July 25, 2023 10:46 Indication: other Weight in k.2 kg Adjusted body weight in Kg: [place] body weight in Kg: Obesity Dosing Indication % IBW: Serum Creatinine - Last 168 Hours 07/25/23 07/25/23 07/26/23 08:07 19:25 00:12 Creatinine 1.12 1.37 1.68 H 07/26/23 07/26/23 07/26/23 04:44 04:44 20:45 Creatinine 1.73 H 1.67 H 2.05 H 07/27/23 04:07 Creatinine 2.49 H Estimated CrCl and GFR - Last 168 Hours 07/25/23 07/25/23 07/26/23 08:07 19:25 00:12 Estim Creat Clear Calc 53.7 43.9 35.8 Estimated GFR > 60 49 39 07/26/23 07/26/23 07/26/23 04:44 04:44 04:44 Estim Creat Clear Calc 36.6 37.9 Estimated GFR 38 39 07/26/23 07/27/23 20:45 04:07 Estim Creat Clear Calc 30.9 25.4 Estimated GFR 31 25 Vancomycin Loading Dose: 2000mg x 1 Current Vancomycin Dosing Regimen: 500mg Q24H Vancomycin Monitoring using AUC goal of 400 - 600 range with trough as surrogate marker: 475mg/L Date and Time for next Vancomycin Level to be drawn: 07/30/23 @1000 Pharmacist Comments on Vancomycin Plan: Patient's BMI = 38.7; using obesity model. Will continue to monitor renal function and adjust accordingly. Predicted trough of 16.2 Vancomycin dosing will take advantage of [employer] as a clinical decision support tool that uses Bayesian modeling to calculate individual patient's pharmacokinetic parameters and forecast the patient's drug concentration time course with the target goal AUC 24 range of 400 - 600 mg/L/hr.
[2023-07-27 15:17] LABS: MANUAL DIFF FLAG NO
[2023-07-27] MEDS: Amiodarone/Dextrose 150 MG/100 ML PLAST..BAG 600 MG IV (15:19)
[2023-07-27 15:20] LABS: Basophils Absolute Auto 0.1 X10*3/uL (0.0-0.2); Basophils Percent Auto 0.4 % (0-2); Eosinophils Percent Auto 0.2 % (0-4); Hemoglobin 11.4 g/dl (14.0-18.0); Imm Gran Abs Auto 0.18 X10*3/uL (0.00-0.03); Imm Gran Pct Auto 0.9 % (0.0-0.4); Lymphocytes Absolute Auto 0.7 X10*3/uL (1.2-4.9); Lymphocytes Percent Auto 3.3 % (20-40); Mean Corpuscular HGB Conc 35.6 g/dl (31.0-36.0); Mean Corpuscular Hemoglobin 31.5 pg (27.0-33.0); Mean Corpuscular Volume 88.4 fL (80.0-98.0); Mean Platelet Volume 9.6 fL (9.4-12.4); Monocytes Absolute Auto 1.1 X10*3/uL (0.1-1.2); Monocytes Percent Auto 5.6 % (2-11); Neutrophils Absolute Auto 17.8 x10*3/uL (2.0-8.3); Neutrophils Percent Auto 89.6 % (45-73); Platelet Count 216 X10*3/uL (160-400); Red Blood Count 3.62 X10*6/uL (4.60-5.80); Red Cell Distribution Width 15.9 % (11.0-16.0); White Blood Count 19.9 X10*3/uL (4.8-10.8)
[2023-07-27 15:24] LABS: Venous Blood Gas Refer to POC result
[2023-07-27 15:24] LABS: VBG Base Excess -1.8 mmol/L; VBG HCO3 22 mmol/L (22-26); VBG pCO2 36 mmHg; VBG pH 7.39 (7.32-7.43); VBG pO2 61 mmHg
[2023-07-27] MEDS: propofoL 1,000 MG/100 ML VIAL 15.24 MG IVCONT (15:27)
--- NOTE | 2023-07-27 16:00 | PM.CNCAR ---
History of Present Illness History of Present Illness Date of Service: 07/27/23 Chief complaint: left effusion Narrative: This is a cardiology consultation regarding ventricular tachycardia seen on telemetry. Patient is intubated critically ill. Hence history obtained by discussing with movie stunt performer Dr. Ashley and reviewing chart. Essentially patient many comorbidities including atrial fibrillation, DVT, on rivaroxaban, diastolic heart failure, presenting with pleural effusion. Then had chest tube placement and there were complications including massive transfusion requirement, cardiac arrest, cardiac tamponade, pericardial window, pneumothorax. Today, the issues that patient is having runs of polymorphic VT type rhythm on the telemetry and hence we have been asked to assess from that standpoint. I reviewed the strips myself and concur. Review of Systems Review of Systems: Unable to obtain. [facility] Past Medical History Medical History (Updated 07/27/23 @ 16:07 by Demetrio Becker MD) Presence of permanent cardiac pacemaker Paroxysmal atrial fibrillation Acute kidney injury Sepsis secondary to UTI Pneumonitis Diastolic CHF Presence of permanent cardiac pacemaker Atrial fibrillation Stasis dermatitis Hypomagnesemia HTN (hypertension) Hypoxia DVT (deep venous thrombosis) History of pulmonary embolism Gout BPH (benign prostatic hyperplasia) CHF (congestive heart failure) COPD (chronic obstructive pulmonary disease) Family History Family History Other HTN (hypertension) Heart disease Surgical History Surgical History Status post placement of cardiac pacemaker Social History Social History Household Members: Unknown / Unable to assess Housing: Assisted Living Facility Do you presently have visiting nurse or other home services: No Unable to assess alcohol history related to: Unknown Alcohol intake: never Patient Tobacco Use Status: Former Tobacco user Advance Directives Date on File: 07/13/21 service: No Current occupational status: retired Meds Allergies Allergy/AdvReac Type Severity Reaction Status Date / Time levofloxacin [LEVOFLOXACIN] Allergy Severe HYPOTENSION Verified 05/12/23 13:12 Penicillins [PCN] Allergy Severe DIFFICULTY Verified 05/12/23 13:12 BREATHING,RASH penicillin V Allergy Unknown sob/rash Verified 05/12/23 13:12 quinine [QUININE] Allergy Unknown UNKNOWN, ? Verified 05/12/23 13:12 Sulfa (Sulfonamide Allergy Unknown UNSURE Verified 05/12/23 13:12 Antibiotics) [SULFA(SULFONAMIDE ANTIBIOTICS)] morphine [MORPHINE] AdvReac Intermediate HYPOTENSION Verified 05/12/23 13:12 MUSCLE RELAXERS Allergy Severe RASH/IMMOBI Uncoded 05/12/23 13:12 LITY Active Medications: Current Medications Albuterol Sulfate (Albuterol Sulfate 90 Mcg 8 Gm Inhaler) 2 puff INHALE Q4H PRN PRN Reason: Shortness Of Breath Chlorhexidine Gluconate (Chlorhexidine Gluc Oral Rinse 15 Ml Mouthwash) 15 ml BUCCAL TID MACIEJ Last Admin: 07/27/23 15:15 Dose: 15 ml Dextrose (Dextrose 50 % 25 Gm/50 Ml Syringe) 25 gm IVPUSH Q15M PRN; Protocol PRN Reason: per Hypoglycemia Standing Ord. Glucose (Glucose Gel 15 Gm Gel..Gram.) 15 gm PO Q15M PRN; Protocol PRN Reason: per Hypoglycemia Standing Ord. Hydrocortisone Sodium Succinate (Hydrocortisone Sod Succ/Pf 100 Mg Vial) 50 mg IVPUSH Q6H MACIEJ Last Admin: 07/27/23 15:15 Dose: 50 mg Propofol (Diprivan) 1,000 mg in 100 mls @ 0 mls/hr IVCONT .Q0M MACIEJ; Protocol Last Admin: 07/27/23 15:27 Dose: 25 mcg/kg/min, 15.24 mls/hr Epinephrine 5 mg/ Dextrose 255 mls @ 0 mls/hr IVCONT .Q0M MACIEJ; Protocol Last Titration: 07/26/23 03:16 Dose: Infused Fentanyl (Sublimaze/Ns) 1,000 mcg in 100 mls @ 0 mls/hr IVCONT .Q0M MACIEJ; Protocol Last Admin: 07/27/23 05:20 Dose: 50 mcg/hr, 5 mls/hr Norepinephrine Bitartrate 32 (mg/ Sodium Chloride) 250 mls @ 0 mls/hr IV .Q0M MACIEJ; Protocol Last Titration: 07/27/23 15:12 Dose: 0.43 mcg/kg/min, 22.58 mls/hr Acetaminophen (Ofirmev) 1,000 mg in 100 mls @ 400 mls/hr IV Q6H PRN PRN Reason: FEver Last Infusion: 07/27/23 15:45 Dose: Infused Vasopressin (Vasostrict) 20 unit in 100 mls @ 9 mls/hr IV .Q11H7M [facility] Last Admin: 07/27/23 09:01 Dose: 0.03 unit/min, 9 mls/hr Cefepime HCl 1 gm/ Sodium (Chloride) 50 mls @ 100 mls/hr IV Q8H [facility] Last Infusion: 07/27/23 12:48 Dose: Infused Vancomycin HCl 500 mg/ Sodium (Chloride) 110 mls @ 110 mls/hr IV Q24H [facility] Amiodarone HCl 900 mg/ Sodium (Chloride) 518 mls @ 34.533 mls/hr IVCONT .Q15H1M [facility]; Protocol Last Admin: 07/27/23 15:57 Dose: Not Given Magnesium Sulfate (Magnesium Sulfate/H2o) 2 gm in 50 mls @ 25 mls/hr IV ONCE ONE Stop: 07/27/23 17:21 Last Admin: 07/27/23 15:57 Dose: 25 mls/hr Magnesium Sulfate (Magnesium Sulfate/H2o) 20 gm in 500 mls @ 25 mls/hr IV .Q20H [facility] Insulin Human Lispro (Insulin Lispro 100 Unit/Ml 3 Ml Vial) 0 unit SUBCUT Q6H [facility]; Protocol Last Admin: 07/27/23 12:08 Dose: Not Given Naloxone HCl (Naloxone Hcl 0.4 Mg/Ml Vial) 0.2 mg IVPUSH Q2M PRN PRN Reason: Excessive sedation or RR < 8 Pantoprazole Sodium (Pantoprazole Sodium 40 Mg/10 Ml Vial) 40 mg IVPUSH DAILY@0630 [facility] Last Admin: 07/27/23 04:14 Dose: 40 mg Pharmacy Consult (Consult Rx Vancomycin Dosing) 1 each MISCELLANE DAILY PRN PRN Reason: Consult order Sodium Chloride (0.9 % Sodium Chloride Flush 3 Ml Syringe) 3 ml IVFLUSH QSHIFT [facility] Last Admin: 07/27/23 12:48 Dose: Not Given Home Medications Medication Instructions Recorded Confirmed Last Taken Type allopurinol 300 mg tablet 1 tab PO DAILY 06/21/21 07/25/23 03/01/22 History escitalopram oxalate 20 mg tablet 1 tab PO DAILY 06/21/21 07/25/23 03/01/22 History fenofibrate 160 mg tablet 1 tab PO DAILY 06/21/21 07/25/23 03/01/22 History fluticasone furoate 100 1 puff inhalation DAILY 06/21/21 07/25/23 03/01/22 History mcg-vilanterol 25 mcg/dose inhalation powder (Breo Ellipta) furosemide 20 mg tablet 3 tab PO QAM 06/21/21 07/25/23 03/01/22 History gabapentin 300 mg capsule 1 cap PO TID 06/21/21 07/25/23 03/01/22 History tamsulosin 0.4 mg capsule 2 cap PO DAILY@1700 06/21/21 07/25/23 03/01/22 History valsartan 40 mg tablet 1 tab PO QAM 06/21/21 07/25/23 03/01/22 History trazodone 150 mg tablet 1 tab PO BEDTIME 07/29/21 07/25/23 03/01/22 History acetaminophen 325 mg tablet 975 mg PO TID 03/02/22 07/25/23 03/01/22 History bisacodyl 10 mg rectal suppository 10 mg ME Q24H PRN Constipation 03/02/22 07/25/23 Unknown History (Dulcolax (bisacodyl)) isosorbide mononitrate 30 mg 30 mg PO QAM 03/02/22 07/25/23 03/01/22 History tablet,extended release 24 hr lorazepam 0.5 mg tablet 0.5 mg PO TID 03/02/22 07/25/23 03/01/22 History magnesium hydroxide 400 mg/5 mL 30 ml PO Q24H PRN Constipation 03/02/22 07/25/23 Unknown History oral suspension (Milk of Magnesia) pantoprazole 40 mg tablet,delayed 40 mg PO BID@0630,1630 03/02/22 07/25/23 03/01/22 History release (Protonix) bicalutamide 50 mg tablet (Casodex) 50 mg PO DAILY 05/12/23 07/25/23 Unknown History d-mannose 500 mg capsule (AZO 1,000 mg PO BID 05/12/23 07/25/23 Unknown History D-Mannose) albuterol sulfate 90 mcg/actuation 2 puff inhalation Q4H PRN 07/25/23 07/25/23 Unknown History aerosol inhaler Shortness Of Breath ammonium lactate 12 % topical cream 1 appl topical BID 07/25/23 07/25/23 Unknown History ceftriaxone 1 gram solution for 1 g IM QPM uti 07/25/23 07/25/23 Unknown History injection docusate sodium 100 mg capsule 100 mg PO DAILY 07/25/23 07/25/23 Unknown History guaifenesin 600 mg tablet, 600 mg PO Q12H PRN Cough 07/25/23 07/25/23 Unknown History extended release 12 hr magnesium oxide 400 mg (241.3 mg 400 mg PO BID 07/25/23 07/25/23 Unknown History magnesium) tablet melatonin 10 mg tablet 10 mg PO BEDTIME 07/25/23 07/25/23 Unknown History nystatin 100,000 unit/gram topical 1 appl topical BID rash 07/25/23 07/25/23 Unknown History powder rivaroxaban 10 mg tablet (Xarelto) 10 mg PO DAILY 07/25/23 07/25/23 Unknown History sodium phosphates 19 gram-7 118 ml ME Q3D PRN Constipation 07/25/23 07/25/23 Unknown History gram/118 mL enema (Fleet Enema) Physical Exam Vital Signs: Vital Signs: Last Vital Signs Temp 102 F H 07/27/23 15:00 Pulse 87 07/27/23 15:00 Resp 16 07/27/23 15:00 BP 152/48 H 07/27/23 15:00 Pulse Ox 96 07/27/23 15:00 O2 Del Method Mechanical Ventil ation 07/27/23 14:00 O2 Flow Rate 2 07/25/23 13:52 FiO2 30 07/27/23 15:37 Oxygen Flow Rate 2 07/25/23 02:10 BMI result Body Mass Index 38.7 Const: Other: Intubated, not responsive General: ill appearing HEENT: Other: Unremarkable Head: Yes normal to inspection Neck: Neck: Yes normal visual inspection Chest: Chest palpation & inspection: normal inspection of the chest Resp: Auscultation: diminished lung sounds Cardio: Palpation: normal PMI Heart sounds: S1 normal heart sound present, S2 normal heart sound present, no gallops, Murmur heart sound present systolic II/ and at the right sternal border and no rubs GI: Palpation (GI): Soft to palpation Back/Spine/Pelvis: Other: unremarkable Skin: General skin exam: no rashes or lesions noted Neuro: Other: Not responding to verbal commands or tactile stimuli. Constricted pupils. Extrem: General: Yes normal to inspection Psych: Mental Status: mental status grossly abnormal Objective Labs and Meds 07/27/23 15:08 07/27/23 04:07 Lab results: Laboratory Results - last 24 hr 07/26/23 07/26/23 07/26/23 18:08 20:44 20:45 WBC 19.1 H RBC 4.31 L Hgb 13.8 L Hct 37.8 L MCV 87.7 MCH 32.0 MCHC 36.5 H RDW 15.7 Plt Count 234 MPV 9.6 Immature Gran % (Auto) Neut % (Auto) Lymph % (Auto) [place] % (Auto) Eos % (Auto) Baso % (Auto) Lymph # (Auto) [place] # (Auto) Eos # (Auto) Baso # (Auto) Abs Immat Gran (auto) Absolute Neuts (auto) Absolute Nucleated RBC 0.000 Nucleated RBC % (auto) 0.0 Smear Tech's Comments VBG pH 7.44 H VBG pCO2 34 VBG pO2 46 VBG HCO3 24 VBG O2 Saturation 79.0 VBG Base Excess 0.6 Sodium 130 L Potassium 3.6 Chloride 95 L Carbon Dioxide 18 L Anion Gap 21 H BUN 23 H Creatinine 2.05 H Estim Creat Clear Calc 30.9 Estimated GFR 31 POC Glucose 163 H Random Glucose 184 H Lactic Acid Lactic Acid F/U @ 2Hr Lactic Acid F/U @ 4Hr Calcium 8.2 L Phosphorus 4.4 Magnesium 1.8 Albumin 3.1 L 07/26/23 07/27/23 07/27/23 23:40 04:07 04:11 WBC 22.3 H RBC 4.23 L Hgb 13.5 L Hct 37.8 L MCV 89.4 MCH 31.9 MCHC 35.7 RDW 15.9 Plt Count 244 MPV 9.9 Immature Gran % (Auto) 1.0 H Neut % (Auto) 83.5 H Lymph % (Auto) 6.3 L [place] % (Auto) 7.9 Eos % (Auto) 0.7 Baso % (Auto) 0.6 Lymph # (Auto) 1.4 [place] # (Auto) 1.8 H Eos # (Auto) 0.2 Baso # (Auto) 0.1 Abs Immat Gran (auto) 0.22 H Absolute Neuts (auto) 18.6 H Absolute Nucleated RBC 0.000 Nucleated RBC % (auto) 0.0 Smear Tech's Comments VERIFIED VBG pH 7.40 VBG pCO2 40 VBG pO2 40 VBG HCO3 25 VBG O2 Saturation 70.0 VBG Base Excess 1.1 Sodium 131 L Potassium 4.2 Chloride 95 L Carbon Dioxide 17 L Anion Gap 23 H BUN 23 H Creatinine 2.49 H Estim Creat Clear Calc 25.4 Estimated GFR 25 POC Glucose 149 H Random Glucose 127 H Lactic Acid 3.3 H* Lactic Acid F/U @ 2Hr Lactic Acid F/U @ 4Hr Calcium 8.2 L Phosphorus 5.3 H Magnesium 1.8 Albumin 3.0 L 07/27/23 07/27/23 07/27/23 07:40 09:55 11:59 WBC RBC Hgb Hct MCV MCH MCHC RDW Plt Count MPV Immature Gran % (Auto) Neut % (Auto) Lymph % (Auto) [place] % (Auto) Eos % (Auto) Baso % (Auto) Lymph # (Auto) [place] # (Auto) Eos # (Auto) Baso # (Auto) Abs Immat Gran (auto) Absolute Neuts (auto) Absolute Nucleated RBC Nucleated RBC % (auto) Smear Tech's Comments VBG pH VBG pCO2 VBG pO2 VBG HCO3 VBG O2 Saturation VBG Base Excess Sodium Potassium Chloride Carbon Dioxide Anion Gap BUN Creatinine Estim Creat Clear Calc Estimated GFR POC Glucose 119 H Random Glucose Lactic Acid Lactic Acid F/U @ 2Hr 2.3 H* Lactic Acid F/U @ 4Hr 3.3 H* Calcium Phosphorus Magnesium Albumin 07/27/23 07/27/23 15:08 15:18 WBC 19.9 H RBC 3.62 L Hgb 11.4 L Hct 32.0 L MCV 88.4 MCH 31.5 MCHC 35.6 RDW 15.9 Plt Count 216 MPV 9.6 Immature Gran % (Auto) 0.9 H Neut % (Auto) 89.6 H Lymph % (Auto) 3.3 L [place] % (Auto) 5.6 Eos % (Auto) 0.2 Baso % (Auto) 0.4 Lymph # (Auto) 0.7 L [place] # (Auto) 1.1 Eos # (Auto) 0.0 Baso # (Auto) 0.1 Abs Immat Gran (auto) 0.18 H Absolute Neuts (auto) 17.8 H Absolute Nucleated RBC 0.000 Nucleated RBC % (auto) 0.0 Smear Tech's Comments VBG pH 7.39 VBG pCO2 36 VBG pO2 61 VBG HCO3 22 VBG O2 Saturation 89.0 VBG Base Excess -1.8 Sodium Potassium Chloride Carbon Dioxide Anion Gap BUN Creatinine Estim Creat Clear Calc Estimated GFR POC Glucose Random Glucose Lactic Acid Lactic Acid F/U @ 2Hr Lactic Acid F/U @ 4Hr Calcium Phosphorus Magnesium Albumin ECG Interpretation: Last EKG is from 07/26. That shows intermittent ventricular pacing. Some PVCs. Underlying rhythm is not clear. Overall rate 88/Min. On telemetry, short runs of ventricular tachycardia that could be polymorphic VT. Intermittent ventricular pacing. Imaging Radiologist's impression: Impressions Chest X-Ray 07/26/23 05:24 IMPRESSION: No gross pneumothorax. Similar appearance of lungs. Chest X-Ray 07/27/23 05:59 IMPRESSION: No pneumothorax seen. Other stable findings from yesterday's exam. Assessment and Plan (1) Ventricular tachycardia: Status: Acute Plan Echocardiogram was reviewed. Overall study quality is suboptimal mainly due to patient's clinical condition. LVEF could be reduced but difficult to assess. Possibly some aortic stenosis but doubt anything critical. There is large fluid collection, which could be either pleural or pericardial or some combination of the two, again difficult to say. Telemetry was reviewed and that shows short runs of polymorphic VT. Underlying atrial rhythm is not clear. Underlying ventricular rhythm is some intermittent ventricular pacing, some natively conducted beats and some PVCs. Overall, critically ill patient, on pressors, recurrent runs of polymorphic VT. Can try to run magnesium is drip to see if that helps. Will get pacer interrogated shortly and we can try to overdrive pace the ventricular tachycardia- this can sometimes help. Even with all the above, guarded prognosis. Risk of is very high. Goals of care will need to be discussed with family. Discussed in detail with movie stunt performer. Time Spent With Patient Time: Total time managing care of this patient today ____ minutes. Procedures Date of Service Date of Service: 07/27/23
[2023-07-27 16:04] LABS: Anion Gap 20 (12-20); Blood Urea Nitrogen 25 mg/dL (9-16); Calcium 8.8 mg/dL (8.4-10.2); Carbon Dioxide 18 mmol/L (22-29); Chloride 96 mmol/L (96-108); Creatinine Clr Calc Pharmacy 28.8; Estimated Glomerular Filt Rate 29; Glucose Random 167 mg/dL (60-115); Phosphorus 5.3 mg/dL (2.7-4.5); Potassium 5.2 mmol/L (3.3-5.1); Sodium 129 mmol/L (135-145)
--- NOTE | 2023-07-27 16:59 | W.MHC.ACPN ---
Advanced Care Planning Note Advanced Care Planning Note Discussed with: family member(s) Time spent (in minutes): 30 Narrative: I spoke with Mr. Linder's daughter and heathcare proxy, Anila, and updated her on his critical and guarded clinical status. I offered any clarifications. We discussed the multiple insults that contribute to Mr. Linder's critical illness, including his arrhythmia and shock. We also discussed comfort-focused care. After our discussion, Anila, expressed changing Mr. Linder's philosophy of care to comfort-focused care tomorrow when she and Mr. Linder's loved ones can be present. We discussed we hope Mr. Linder will survive until tomorrow AM, but will maintain Mr. Linder as DNR, DNI, and otherwise avoid escalation of care. Problems Discussed (1) Ventricular tachycardia:
[2023-07-27] MEDS: Insulin Lispro 100 UNIT/ML 3 ML VIAL SUBCUT (17:42)
[2023-07-27 17:43] LABS: Glucose, Whole Blood 176 mg/dL (60-115)
[2023-07-27 18:36] LABS: Anion Gap 23 (12-20); Blood Urea Nitrogen 24 mg/dL (9-16); Calcium 8.2 mg/dL (8.4-10.2); Carbon Dioxide 14 mmol/L (22-29); Chloride 99 mmol/L (96-108); Creatinine Clr Calc Pharmacy 29.6; Estimated Glomerular Filt Rate 29; Glucose Random 188 mg/dL (60-115); Magnesium 3.5 mg/dL (1.6-2.6); Potassium 5.3 mmol/L (3.3-5.1); Sodium 131 mmol/L (135-145)
[2023-07-27] MEDS: propofoL 1,000 MG/100 ML VIAL 9.14 MG IVCONT (22:36)
[2023-07-28] VITALS (22 sets, daily range): BP systolic 92–131; BP diastolic 56–75; PULSE 94–108; RESP 10–17; TEMP 32.1–39.7; O2SAT 93–98
[2023-07-28] MEDS: Insulin Lispro 100 UNIT/ML 3 ML VIAL SUBCUT ×2 (00:07→06:14)
[2023-07-28 00:08] LABS: Glucose, Whole Blood 194 mg/dL (60-115)
[2023-07-28 00:47] LABS: Anion Gap 19 (12-20); Blood Urea Nitrogen 25 mg/dL (9-16); Calcium 8.5 mg/dL (8.4-10.2); Carbon Dioxide 19 mmol/L (22-29); Chloride 97 mmol/L (96-108); Creatinine Clr Calc Pharmacy 29.9; Estimated Glomerular Filt Rate 30; Glucose Random 196 mg/dL (60-115); Magnesium 2.9 mg/dL (1.6-2.6); Potassium 4.7 mmol/L (3.3-5.1); Sodium 130 mmol/L (135-145)
[2023-07-28] MEDS: Hydrocortisone Sod Succ/PF 100 MG VIAL 50 MG IVPUSH ×2 (03:40→09:25)
[2023-07-28] MEDS: cefEPime HCl 1 GM in 0.9 % Sodium Chloride 50 ML IV (03:40)
[2023-07-28] MEDS: fentaNYL citrate/NS 1,000 MCG/100 ML PLAST..BAG 5 MCG IVCONT (03:41)
[2023-07-28] MEDS: Vasopressin 20 UNIT/100 ML INFUS..BTL 9 UNIT IV ×2 (03:42→11:40)
[2023-07-28 04:45] LABS: VBG Base Excess -0.2 mmol/L; VBG HCO3 23 mmol/L (22-26); VBG pCO2 33 mmHg; VBG pH 7.44 (7.32-7.43); VBG pO2 45 mmHg
[2023-07-28 04:46] LABS: Venous Blood Gas Refer to POC result
[2023-07-28 04:57] LABS: Basophils Percent Auto 0.2 % (0-2); Hematocrit 30.1 % (42.0-52.0); Hemoglobin 10.6 g/dl (14.0-18.0); Imm Gran Abs Auto 0.15 X10*3/uL (0.00-0.03); Imm Gran Pct Auto 0.8 % (0.0-0.4); Lymphocytes Absolute Auto 0.5 X10*3/uL (1.2-4.9); Lymphocytes Percent Auto 2.5 % (20-40); MANUAL DIFF FLAG SCAN; Mean Corpuscular HGB Conc 35.2 g/dl (31.0-36.0); Mean Corpuscular Hemoglobin 31.5 pg (27.0-33.0); Mean Corpuscular Volume 89.3 fL (80.0-98.0); Mean Platelet Volume 9.8 fL (9.4-12.4); Monocytes Absolute Auto 0.8 X10*3/uL (0.1-1.2); Monocytes Percent Auto 4.5 % (2-11); Neutrophils Absolute Auto 16.5 x10*3/uL (2.0-8.3); Platelet Count 208 X10*3/uL (160-400); Red Blood Count 3.37 X10*6/uL (4.60-5.80); Red Cell Distribution Width 15.9 % (11.0-16.0); SCAN SMEAR FLAG 1; White Blood Count 17.9 X10*3/uL (4.8-10.8)
[2023-07-28 05:09] LABS: Anion Gap 18 (12-20)
[2023-07-28 05:13] LABS: Alanine Aminotransferase 27 U/L (0-40); Alkaline Phosphatase 47 U/L (39-117); Aspartate Amino Transferase 46 U/L (5-37); Bilirubin Total 2.1 mg/dL (0.0-1.0); Blood Urea Nitrogen 26 mg/dL (9-16); Calcium 8.4 mg/dL (8.4-10.2); Carbon Dioxide 19 mmol/L (22-29); Chloride 98 mmol/L (96-108); Creatinine Clr Calc Pharmacy 31.2; Estimated Glomerular Filt Rate 31; Glucose Random 201 mg/dL (60-115); Magnesium 2.7 mg/dL (1.6-2.6); Potassium 4.4 mmol/L (3.3-5.1); Sodium 131 mmol/L (135-145); Total Protein 5.4 g/dL (6.5-8.0)
[2023-07-28] MEDS: propofoL 1,000 MG/100 ML VIAL 9.14 MG IVCONT (05:17)
[2023-07-28 05:24] LABS: SLIDE REVIEW VERIFIED
[2023-07-28] MEDS: Pantoprazole Sodium 40 MG/10 ML VIAL IVPUSH (06:05)
[2023-07-28] MEDS: Acetaminophen 1,000 MG/100 ML PIGGYBACK 400 MG IV (06:13)
[2023-07-28 06:14] LABS: Glucose, Whole Blood 173 mg/dL (60-115)
--- NOTE | 2023-07-28 07:51 | P.PNCC_ITS ---
Subjective Subjective Date of Service: 07/28/23 Interval History: remains in shock Critical Care Time (minutes): 90 Physical Exam 2 Vital Signs: Vital Signs: Last Vital Signs Temp 102.6 F H 07/28/23 07:00 Pulse 100 07/28/23 07:00 Resp 16 07/28/23 07:00 BP 115/69 07/28/23 07:00 Pulse Ox 98 07/28/23 07:00 O2 Del Method Mechanical Ventil ation 07/28/23 07:00 O2 Flow Rate 2 07/25/23 13:52 FiO2 30 07/28/23 07:25 Oxygen Flow Rate 2 07/25/23 02:10 BMI result Body Mass Index 38.7 Const: Other: intubated, minimally sedated; does not respond to noxious stimulus General: well developed Orientation/consciousness: patient oriented x3 HEENT: Head: Yes normal to inspection, Yes normocephalic and Yes atraumatic Eyes: General: appearance normal, both eyes and all related structures Neck: Neck: Yes normal visual inspection and Yes supple Chest: Other: appreciable bandages overlying previous pericardial drain, existing R chest tube Resp: Other: mild rhonchi R greater than L Cardio: Rate: regular rate Rhythm: regular rhythm GI: Inspection: Yes normal to inspection, No Abdominal wall edema and No distended Palpation (GI): Soft to palpation, not firm, nontender, no guarding and not rigid : Male General Exam: Yes normal external exam Skin: Other: some scattered ecchymoses Neuro: Other: unable to follow commands; no appreciable response to noxious stimulus General: patient oriented x3 Extrem: General: Yes normal to inspection, Yes capillary refill normal and No edema Objective Data Labs 07/28/23 04:35 07/28/23 04:35 Labs: Laboratory Results - last 24 hr 07/27/23 07/27/23 07/27/23 07:40 09:55 11:59 WBC RBC Hgb Hct MCV MCH MCHC RDW Plt Count MPV Immature Gran % (Auto) Neut % (Auto) Lymph % (Auto) [place] % (Auto) Eos % (Auto) Baso % (Auto) Lymph # (Auto) [place] # (Auto) Eos # (Auto) Baso # (Auto) Abs Immat Gran (auto) Absolute Neuts (auto) Absolute Nucleated RBC Nucleated RBC % (auto) Smear Tech's Comments VBG pH VBG pCO2 VBG pO2 VBG HCO3 VBG O2 Saturation VBG Base Excess Sodium Potassium Chloride Carbon Dioxide Anion Gap BUN Creatinine Estim Creat Clear Calc Estimated GFR POC Glucose 119 H Random Glucose Lactic Acid F/U @ 2Hr 2.3 H* Lactic Acid F/U @ 4Hr 3.3 H* Calcium Phosphorus Magnesium Total Bilirubin AST ALT Alkaline Phosphatase Total Protein Albumin 07/27/23 07/27/23 07/27/23 15:08 15:18 17:40 WBC 19.9 H RBC 3.62 L Hgb 11.4 L Hct 32.0 L MCV 88.4 MCH 31.5 MCHC 35.6 RDW 15.9 Plt Count 216 MPV 9.6 Immature Gran % (Auto) 0.9 H Neut % (Auto) 89.6 H Lymph % (Auto) 3.3 L [place] % (Auto) 5.6 Eos % (Auto) 0.2 Baso % (Auto) 0.4 Lymph # (Auto) 0.7 L [place] # (Auto) 1.1 Eos # (Auto) 0.0 Baso # (Auto) 0.1 Abs Immat Gran (auto) 0.18 H Absolute Neuts (auto) 17.8 H Absolute Nucleated RBC 0.000 Nucleated RBC % (auto) 0.0 Smear Tech's Comments VBG pH 7.39 VBG pCO2 36 VBG pO2 61 VBG HCO3 22 VBG O2 Saturation 89.0 VBG Base Excess -1.8 Sodium 129 L Potassium 5.2 H D Chloride 96 Carbon Dioxide 18 L Anion Gap 20 BUN 25 H Creatinine 2.20 H Estim Creat Clear Calc 28.8 Estimated GFR 29 POC Glucose 176 H Random Glucose 167 H Lactic Acid F/U @ 2Hr Lactic Acid F/U @ 4Hr Calcium 8.8 D Phosphorus 5.3 H Magnesium 2.0 Total Bilirubin AST ALT Alkaline Phosphatase Total Protein Albumin 07/27/23 07/27/23 07/28/23 18:10 23:48 00:20 WBC RBC Hgb Hct MCV MCH MCHC RDW Plt Count MPV Immature Gran % (Auto) Neut % (Auto) Lymph % (Auto) [place] % (Auto) Eos % (Auto) Baso % (Auto) Lymph # (Auto) [place] # (Auto) Eos # (Auto) Baso # (Auto) Abs Immat Gran (auto) Absolute Neuts (auto) Absolute Nucleated RBC Nucleated RBC % (auto) Smear Tech's Comments VBG pH VBG pCO2 VBG pO2 VBG HCO3 VBG O2 Saturation VBG Base Excess Sodium 131 L 130 L Potassium 5.3 H 4.7 Chloride 99 97 Carbon Dioxide 14 L 19 L Anion Gap 23 H 19 BUN 24 H 25 H Creatinine 2.14 H 2.12 H Estim Creat Clear Calc 29.6 29.9 Estimated GFR 29 30 POC Glucose 194 H Random Glucose 188 H 196 H Lactic Acid F/U @ 2Hr Lactic Acid F/U @ 4Hr Calcium 8.2 L D 8.5 Phosphorus Magnesium 3.5 H* 2.9 H Total Bilirubin AST ALT Alkaline Phosphatase Total Protein Albumin 07/28/23 07/28/23 07/28/23 04:35 04:38 06:07 WBC 17.9 H RBC 3.37 L Hgb 10.6 L Hct 30.1 L MCV 89.3 MCH 31.5 MCHC 35.2 RDW 15.9 Plt Count 208 MPV 9.8 Immature Gran % (Auto) 0.8 H Neut % (Auto) 92.0 H Lymph % (Auto) 2.5 L [place] % (Auto) 4.5 Eos % (Auto) 0.0 Baso % (Auto) 0.2 Lymph # (Auto) 0.5 L [place] # (Auto) 0.8 Eos # (Auto) 0.0 Baso # (Auto) 0.0 Abs Immat Gran (auto) 0.15 H Absolute Neuts (auto) 16.5 H Absolute Nucleated RBC 0.000 Nucleated RBC % (auto) 0.0 Smear Tech's Comments VERIFIED VBG pH 7.44 H VBG pCO2 33 VBG pO2 45 VBG HCO3 23 VBG O2 Saturation 77.0 VBG Base Excess -0.2 Sodium 131 L Potassium 4.4 Chloride 98 Carbon Dioxide 19 L Anion Gap 18 BUN 26 H Creatinine 2.03 H Estim Creat Clear Calc 31.2 Estimated GFR 31 POC Glucose 173 H Random Glucose 201 H Lactic Acid F/U @ 2Hr Lactic Acid F/U @ 4Hr Calcium 8.4 Phosphorus Magnesium 2.7 H Total Bilirubin 2.1 H AST 46 H ALT 27 Alkaline Phosphatase 47 Total Protein 5.4 L Albumin 3.0 L Microbiology Microbiology Results: Microbiology 07/27/23 04:07 Blood - Venous Blood Culture - Preliminary No growth after 24 hours. 07/27/23 04:07 Blood - Venous Blood Culture - Preliminary No growth after 24 hours. 07/25/23 10:22 Blood - Venous Blood Culture - Preliminary No growth after 48 hours. 07/25/23 09:56 Blood - Venous Blood Culture - Preliminary No growth after 48 hours. 07/25/23 Unknown Urine clean catch - Urine fisher top Urine Culture - Final No growth. 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, diastolic heart failure, p/w L pleural effusion on 07/25, s/p L chest tube w/ 3 L hemothorax, necessitating massive transfusion, c/b cardiac arrest, cardiac tamponade s/p pericardial window, and central venous access placement c/b R pneumothorax s/p R chest tube Plan: N: sedation w/ propofol gtt CV: s/p cardiac arrest x2; cardiac tamponade s/p pericardial drain, removed; repeat echocardiogram c/f persistent loculated effusion; torsades de pointes, improved with magnesium gtt, pacemaker overdrive to heart rate 100; diastolic heart failure, atrial fibrillation R: L hemothorax s/p chest tube c/b hemorrhagic shock, removed; R pneumothorax s/p chest tube; to monitor output, air leak; appreciate thoracic surgery recommendations GI: no acute issues : acute renal failure; to monitor electrolytes, urine output H: hemorrhagic shock, resolved; to continue to avoid chemical DVT prophylaxis ID: persistent leukocytosis; empiric vancomycin, cefepime; follow-up blood cultures E: no acute issues P: no acute issues S: discussed with patient's daughter and healthcare proxy, Anila, likely change philosophy of care to comfort-focused care today Quality Stroke Does the patient have a stroke diagnosis?: No VTE Prior VTE?: Yes VTE Risk Level:: Medical - moderate - high VTE Device Contraindication: N/A - Device Ordered VTE Drug Contraindication: Treatment Not Indicated
--- NOTE | 2023-07-28 09:21 | MHC.CLN ---
PT IS INTUBATED AND SEDATED CURRENTLY NPO DISCUSSED AT ROUNDS WITH MD FAMILY MEETING GOALS OF CARE FOR COMFORT MEASURES AT THIS TIME WILL FOLLOW WITH TEAM AND PROVIDE SUPPORT NEEDED CAN CHANGE DIET TO FEED FROM FLOOR AND KITCHEN CAN PROVIDE COFFEE CART UPON REQUEST
[2023-07-28] MEDS: Chlorhexidine Gluc Oral Rinse 15 ML MOUTHWASH BUCCAL (09:25)
--- NOTE | 2023-07-28 09:51 | PM.PNCARD ---
Subjective Subjective Date of Service: 07/28/23 Interval history: Still critically ill, intubated. Review of Systems Review of Systems Unable to provide review of systems. Physical Exam Vital Signs: Last Vital Signs Temp 102.6 F H 07/28/23 09:00 Pulse 100 07/28/23 09:00 Resp 12 07/28/23 09:00 BP 115/62 07/28/23 09:00 Pulse Ox 95 07/28/23 09:00 O2 Del Method Mechanical Ventilation 07/28/23 09:00 O2 Flow Rate 2 07/25/23 13:52 FiO2 30 07/28/23 09:00 Oxygen Flow Rate 2 07/25/23 02:10 BMI result Body Mass Index 38.7 Const Other: Intubated, not responsive General: ill appearing HEENT Other: Unremarkable Head: Yes normal to inspection Neck Neck: Yes normal visual inspection Chest Chest palpation & inspection: normal inspection of the chest Resp Auscultation: diminished lung sounds Cardio Palpation: normal PMI Heart sounds: S1 normal heart sound present, S2 normal heart sound present, no gallops, Murmur heart sound present systolic II/ and at the right sternal border and no rubs GI Palpation (GI): Soft to palpation Back/Spine/Pelvis Other: unremarkable Skin General skin exam: no rashes or lesions noted Neuro Other: Not responding to verbal commands or tactile stimuli. Constricted pupils. Extrem General: Yes normal to inspection Psych Mental Status: mental status grossly abnormal Objective Labs and Meds 07/28/23 04:35 07/28/23 04:35 Lab results: Laboratory Results - last 24 hr 07/27/23 07/27/23 07/27/23 09:55 11:59 15:08 WBC 19.9 H RBC 3.62 L Hgb 11.4 L Hct 32.0 L MCV 88.4 MCH 31.5 MCHC 35.6 RDW 15.9 Plt Count 216 MPV 9.6 Immature Gran % (Auto) 0.9 H Neut % (Auto) 89.6 H Lymph % (Auto) 3.3 L [place] % (Auto) 5.6 Eos % (Auto) 0.2 Baso % (Auto) 0.4 Lymph # (Auto) 0.7 L [place] # (Auto) 1.1 Eos # (Auto) 0.0 Baso # (Auto) 0.1 Abs Immat Gran (auto) 0.18 H Absolute Neuts (auto) 17.8 H Absolute Nucleated RBC 0.000 Nucleated RBC % (auto) 0.0 Smear Tech's Comments VBG pH VBG pCO2 VBG pO2 VBG HCO3 VBG O2 Saturation VBG Base Excess Sodium 129 L Potassium 5.2 H D Chloride 96 Carbon Dioxide 18 L Anion Gap 20 BUN 25 H Creatinine 2.20 H Estim Creat Clear Calc 28.8 Estimated GFR 29 POC Glucose 119 H Random Glucose 167 H Lactic Acid F/U @ 4Hr 3.3 H* Calcium 8.8 D Phosphorus 5.3 H Magnesium 2.0 Total Bilirubin AST ALT Alkaline Phosphatase Total Protein Albumin 07/27/23 07/27/23 07/27/23 15:18 17:40 18:10 WBC RBC Hgb Hct MCV MCH MCHC RDW Plt Count MPV Immature Gran % (Auto) Neut % (Auto) Lymph % (Auto) [place] % (Auto) Eos % (Auto) Baso % (Auto) Lymph # (Auto) [place] # (Auto) Eos # (Auto) Baso # (Auto) Abs Immat Gran (auto) Absolute Neuts (auto) Absolute Nucleated RBC Nucleated RBC % (auto) Smear Tech's Comments VBG pH 7.39 VBG pCO2 36 VBG pO2 61 VBG HCO3 22 VBG O2 Saturation 89.0 VBG Base Excess -1.8 Sodium 131 L Potassium 5.3 H Chloride 99 Carbon Dioxide 14 L Anion Gap 23 H BUN 24 H Creatinine 2.14 H Estim Creat Clear Calc 29.6 Estimated GFR 29 POC Glucose 176 H Random Glucose 188 H Lactic Acid F/U @ 4Hr Calcium 8.2 L D Phosphorus Magnesium 3.5 H* Total Bilirubin AST ALT Alkaline Phosphatase Total Protein Albumin 07/27/23 07/28/23 07/28/23 23:48 00:20 04:35 WBC 17.9 H RBC 3.37 L Hgb 10.6 L Hct 30.1 L MCV 89.3 MCH 31.5 MCHC 35.2 RDW 15.9 Plt Count 208 MPV 9.8 Immature Gran % (Auto) 0.8 H Neut % (Auto) 92.0 H Lymph % (Auto) 2.5 L [place] % (Auto) 4.5 Eos % (Auto) 0.0 Baso % (Auto) 0.2 Lymph # (Auto) 0.5 L [place] # (Auto) 0.8 Eos # (Auto) 0.0 Baso # (Auto) 0.0 Abs Immat Gran (auto) 0.15 H Absolute Neuts (auto) 16.5 H Absolute Nucleated RBC 0.000 Nucleated RBC % (auto) 0.0 Smear Tech's Comments VERIFIED VBG pH VBG pCO2 VBG pO2 VBG HCO3 VBG O2 Saturation VBG Base Excess Sodium 130 L 131 L Potassium 4.7 4.4 Chloride 97 98 Carbon Dioxide 19 L 19 L Anion Gap 19 18 BUN 25 H 26 H Creatinine 2.12 H 2.03 H Estim Creat Clear Calc 29.9 31.2 Estimated GFR 30 31 POC Glucose 194 H Random Glucose 196 H 201 H Lactic Acid F/U @ 4Hr Calcium 8.5 8.4 Phosphorus Magnesium 2.9 H 2.7 H Total Bilirubin 2.1 H AST 46 H ALT 27 Alkaline Phosphatase 47 Total Protein 5.4 L Albumin 3.0 L 07/28/23 07/28/23 04:38 06:07 WBC RBC Hgb Hct MCV MCH MCHC RDW Plt Count MPV Immature Gran % (Auto) Neut % (Auto) Lymph % (Auto) [place] % (Auto) Eos % (Auto) Baso % (Auto) Lymph # (Auto) [place] # (Auto) Eos # (Auto) Baso # (Auto) Abs Immat Gran (auto) Absolute Neuts (auto) Absolute Nucleated RBC Nucleated RBC % (auto) Smear Tech's Comments VBG pH 7.44 H VBG pCO2 33 VBG pO2 45 VBG HCO3 23 VBG O2 Saturation 77.0 VBG Base Excess -0.2 Sodium Potassium Chloride Carbon Dioxide Anion Gap BUN Creatinine Estim Creat Clear Calc Estimated GFR POC Glucose 173 H Random Glucose Lactic Acid F/U @ 4Hr Calcium Phosphorus Magnesium Total Bilirubin AST ALT Alkaline Phosphatase Total Protein Albumin Imaging Radiologist's impression: Impressions Chest X-Ray 07/26/23 05:24 IMPRESSION: No gross pneumothorax. Similar appearance of lungs. Chest X-Ray 07/27/23 05:59 IMPRESSION: No pneumothorax seen. Other stable findings from yesterday's exam. Progress Note: A&P Assessment and plan (1) Ventricular tachycardia: Status: Acute (2) Cardiac arrest: Status: Acute Plan Overall, patient still remains critically ill. Patient's pacemaker settings adjusted to provide overdrive pacing at 100/Min. After that, we do not really see any clear episodes of ventricular tachycardia. Hence we will continue the current basal settings without changes. Otherwise supportive care per property insurance agent guidance. Will follow-up with you. Discussed with . Time Spent With Patient Time: Total time managing care of this patient today ____ minutes. Progress Note: Quality Stroke Does the patient have a stroke diagnosis?: No Procedures Date of Service Date of Service: 07/28/23
--- NOTE | 2023-07-28 11:52 | W.MHC.ACPN ---
Advanced Care Planning Note Advanced Care Planning Note Discussed with: family member(s) Time spent (in minutes): 30 Narrative: Mr. Linder's loved ones, including Anila, were present at bedside. I offered updates and clarifications. We discussed comfort-focused care again. At this time, Mr. Linder's philosophy of care will be transitioned to comfort-focused care. Problems Discussed (1) Ventricular tachycardia: (2) Cardiac arrest:
[2023-07-28] MEDS: Scopolamine 1.5 MG PATCH.TD.3 TRANSDERMA (12:19)
[2023-07-28] MEDS: Morphine Sulfate 2 MG/ML CARTRIDGE IVPUSH (12:55)
--- NOTE | 2023-07-28 13:18 | PM.DDS ---
Discharge Sum: Prov Provider Primary care physician: Avinash Patrick MD Admitting clinician: Bertram Prince Pronouncing clinician: Loan Ashley Discharge Sum: Diag PCOD Cause of : Shock Contributing Factors (1) Cardiac arrest: (2) Hemorrhagic shock: (3) Cardiac tamponade: (4) Torsades de pointes: (5) GIN (acute kidney injury): Discharge Sum: Summary Date and Time Date of admission: 07/25/23 10:46 Date of : 07/28/23 Summary Details: Mr. Linder is a 88 Y M with atrial fibrillation, prior DVT on rivaroxaban, diastolic heart failure, presenting with a left pleural effusion on 07/25, and underwent left chest tube, found to have 3 L hemothorax, necessitating massive transfusion. Mr. Linder's ED course was complicated by cardiac arrest, cardiac tamponade, and underwent pericardial drain, as well as central venous access placement complicated by right pneumothorax, and underwent right chest tube. Mr. Linder's ICU course was complicated by persistent shock, necessitating 2 vasopressors and stress-dose steroids, acute renal insufficiency, and torsades de pointes. Mr. Linder was transitioned to comfort-focused care on 07/28 with his daughter, Anila, and other loved ones at bedside. Additional Data Confirmation of as documented by pronouncing clinician: no pulse, no respirations, no heart sounds and pupils fixed and dilated Family: at bedside Attending/PCP notified?: No Attending physician: Loan Ashley MD Was code activated?: No Autopsy requested?: No document examiner notified?: No
[2023-07-28] MEDS: fentaNYL citrate/NS 1,000 MCG/100 ML PLAST..BAG 20 MCG IVCONT (13:52)
--- NOTE | 2023-07-28 15:10 | PC.NURSE ---
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 Scopolomine patch put on patient as well as max fent drip. At 1255 Patient given PRN Morphine. Extubated at 1301. No distress. Family brought back to bedside. asystole at 1408 - TOD [address] Ashley who pronounced patient at bedside. End of life blanket given to patient. All belongings brought home by family.
--- NOTE | 2023-07-28 16:31 | PC.NURSE ---
Addendum entered by Ni Sal RN 07/28/23 16:52: Meds below wasted With RN James Schmidt, witnessed by myself. Original Note: Patient taken out of system - wasted fentanyl drip 94ml & propofol drip 30ml - Ni Sal RN witnessed waste.
--- NOTE | 2023-07-29 13:15 | P.CDIM_ITS ---
PROVIDER RESPONSE TEXT: To clarify, the appropriate diagnosis supported by the clinical indicators: Acute Pneumothorax QUERY TEXT: PHYSICIAN'S DOCUMENTATION REQUEST Date of Query: 07/28/2023 10:25 AM EDT Patient Name: Leonidas iLnder Admit Date: 07/25/2023 Dear Loan Ashley, A review of the medical record indicates additional documentation may be needed. Please review below and update the documentation accordingly. Clinical Indicators: PN: Diagnosis under Assessment and plan: Pneumothorax s/p left chest tube w 3 L hemothorax, necessitating massive transfusion, c/b cardiac arrest, cardiac tamponade s/p pericardial window, and central venous access placement c/b R pneumothorax s/p R chest tube. Monitor output, air leak. Clarify which of the following accurately represents the specifics to the Pneumothorax documented: Possible options might include: Acute Pneumothorax Spontaneous Pneumothorax primary, secondary, tension Traumatic Pneumothorax Chronic Pneumothorax Other Other (explain)Clinically unable to determine (explain)Thank you, Myrtle Tesfaye, CCS, CDIS Use of terms such as suspected, likely, concern for, or probable (associated with a specific diagnosi s that is being evaluated, monitored, or treated as if it exists) are acceptable and can be coded in the inpatient se tting, when documented at the time of discharge. Please use your independent medical judgment in providing your response. THIS QUERY IS PART OF THE PERMANENT MEDICAL RECORD
--- NOTE | 2023-07-29 13:15 | P.CDIM_ITS ---
PROVIDER RESPONSE TEXT: To clarify, the appropriate diagnosis supported by the clinical indicators: Hyponatremia QUERY TEXT: PHYSICIAN'S DOCUMENTATION REQUEST Date of Query: 07/27/2023 11:25 AM EDT Patient Name: Leonidas Linder Admit Date: 07/25/2023 Dear Loan Ashley, A review of the medical record indicates additional documentation may be needed. Please review below and update the documentation accordingly. Clinical Indicators: LAB FINDINGS: sodium 130 L 131 L IV Fluids Based on the above, is there a diagnosis that correlates with these lab findings: Hyponatremia Labs indicate a diagnosis of (please specify) Other (explain)Clinically unable to determine (explain)Thank you, Myrtle Tesfaye, CCS, CDIS Use of terms such as suspected, likely, concern for, or probable (associated with a specific diagnosi s that is being evaluated, monitored, or treated as if it exists) are acceptable and can be coded in the inpatient se tting, when documented at the time of discharge. Please use your independent medical judgment in providing your response. THIS QUERY IS PART OF THE PERMANENT MEDICAL RECORD
== END 2023-07-28 14:08 | disposition expired | DRG 163 ==
LOC: HO.ED 07:49 → HO.EDOVER 10:57 → HO.S3 16:21 → HO.ICU 19:04
PROVIDERS: Internal Medicine Pulmonary Disease; Nurse Practitioner Family; Physician Assistant Medical; Admitting Provider Internal Medicine; Emergency Provider Emergency Medicine; PCP Family Medicine; Visit Provider Internal Medicine Critical Care Medicine
DX: J90 Pleural effusion, not elsewhere classified (principal); J96.21 Acute and chronic respiratory failure with hypoxia; N17.9 Acute kidney failure, unspecified; I48.19 Other persistent atrial fibrillation; J98.11 Atelectasis; I31.39 Other pericardial effusion (noninflammatory); I31.4 Cardiac tamponade; I47.21 Torsades de pointes; E87.1 Hypo-osmolality and hyponatremia; I50.32 Chronic diastolic (congestive) heart failure; J94.2 Hemothorax; I11.0 Hypertensive heart disease with heart failure; I46.9 Cardiac arrest, cause unspecified; R57.0 Cardiogenic shock; E66.9 Obesity, unspecified; E83.39 Other disorders of phosphorus metabolism; Z66 Do not resuscitate; Z68.38 Body mass index [BMI] 38.0-38.9, adult; Z51.5 Encounter for palliative care; Z86.711 Personal history of pulmonary embolism; Z45.018 Encounter for adjustment and management of other part of cardiac pacemaker; Z20.822 Contact with and (suspected) exposure to COVID-19; Z87.891 Personal history of nicotine dependence; Z79.01 Long term (current) use of anticoagulants; Z79.51 Long term (current) use of inhaled steroids; Z79.899 Other long term (current) drug therapy
CPT/HCPCS: 36415; 71045; 71260; 74177; 80048; 80053; 80076; 81001; 82040; 82803; 82947; 83605; 83690; 83735; 83880; 84100; 84484; 85007; 85025; 85027; 85384; 85610; 86850; 86900; 86901; 86920; 87040; 87086; 87635; 93005; 93306; 94002; 94003; 99285; C1758; J0131; J0171; J0283; J0692; J0696; J2270; J3010; J3370; J3475; J7168; P9016; P9017; P9035; P9047; Q9967

== ENCOUNTER 2023-07-25 10:46 | Outpatient (BNV) | payer MEDICARE, MEDICAID, SELFPAY | END 2023-07-27 07:00 | PROVIDERS: Admitting Provider Internal Medicine; Emergency Provider Emergency Medicine; PCP Family Medicine; Visit Provider Internal Medicine | DX: I34.81 Nonrheumatic mitral (valve) annulus calcification (principal); I35.8 Other nonrheumatic aortic valve disorders | CPT/HCPCS: 93306 ==

== ENCOUNTER → 2023-07-25 10:46 | Outpatient (BNV) | payer MEDICARE, MEDICAID, SELFPAY | PROVIDERS: Admitting Provider Internal Medicine; Emergency Provider Emergency Medicine; PCP Family Medicine; Visit Provider Internal Medicine | DX: J90 Pleural effusion, not elsewhere classified (principal) | CPT/HCPCS: 99223 ==

== ENCOUNTER → 2023-07-25 10:46 | Outpatient (BNV) | payer MEDICARE, MEDICAID, SELFPAY | PROVIDERS: Admitting Provider Internal Medicine; Emergency Provider Emergency Medicine; PCP Family Medicine; Visit Provider Nurse Practitioner Family | DX: R57.8 Other shock (principal); I46.9 Cardiac arrest, cause unspecified; I50.30 Unspecified diastolic (congestive) heart failure; N17.9 Acute kidney failure, unspecified; I47.20 Ventricular tachycardia, unspecified | CPT/HCPCS: 99238; 99291; 99497 ==

== ENCOUNTER → 2023-07-25 10:46 | Outpatient (BNV) | payer MEDICARE, MEDICAID, SELFPAY | PROVIDERS: Admitting Provider Internal Medicine; Emergency Provider Emergency Medicine; PCP Family Medicine; Visit Provider Internal Medicine | DX: I47.20 Ventricular tachycardia, unspecified (principal); I46.9 Cardiac arrest, cause unspecified | CPT/HCPCS: 99223; 99233 ==

== ENCOUNTER → 2023-07-25 10:46 | Outpatient (BNV) | payer MEDICARE, MEDICAID, SELFPAY | PROVIDERS: Admitting Provider Internal Medicine; Emergency Provider Emergency Medicine; PCP Family Medicine; Visit Provider Internal Medicine Pulmonary Disease | DX: J93.9 Pneumothorax, unspecified (principal); I31.39 Other pericardial effusion (noninflammatory); I46.9 Cardiac arrest, cause unspecified; J96.01 Acute respiratory failure with hypoxia; N17.9 Acute kidney failure, unspecified; I50.30 Unspecified diastolic (congestive) heart failure | CPT/HCPCS: 32556; 99291 ==

== ENCOUNTER → 2023-07-25 10:46 | Outpatient (BNV) | payer MEDICARE, MEDICAID, SELFPAY | PROVIDERS: Admitting Provider Internal Medicine; Emergency Provider Emergency Medicine; PCP Family Medicine; Visit Provider Surgery | DX: I46.9 Cardiac arrest, cause unspecified (principal); I31.39 Other pericardial effusion (noninflammatory); J93.9 Pneumothorax, unspecified; J90 Pleural effusion, not elsewhere classified | CPT/HCPCS: 32556; 33025; 99024; 99223; 99499 ==